=== PATIENT | male | born 1995 | race African-American/Black ===

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

== ENCOUNTER → 2017-01-02 | Outpatient (CLI) | payer OTHER ==
[2017-01-02 09:31] LABS: BASO % 1.1 % (0.0-1.0); EOS # 0.1 K/mm3 (0.0-0.50); EOS % 2.2 % (0.0-3.0); LYMPH # 2.3 K/mm3 (1.5-6.5); LYMPH % 50.1 % (24.0-44.0); MEAN CORPUSCULAR HEMOGLOBIN 30.8 pg (27.0-33.0); MEAN CORPUSCULAR HGB CONC 33.7 g/dl (32.0-36.5); MEAN CORPUSCULAR VOLUME 91.4 fl (80.0-96.0); MONO # 0.4 K/mm3 (0.0-0.8); MONO % 7.6 % (0.0-5.0); NEUTROPHILS # 1.6 K/mm3 (1.8-7.7); NEUTROPHILS % 35.5 % (36.0-66.0); RED CELL DISTRIBUTION WIDTH 12.9 % (11.5-14.5); WHITE BLOOD COUNT 4.6 K/mm3 (4.0-10.0)
[2017-01-02 09:53] LABS: ALBUMIN 3.8 GM/DL (3.2-5.2); ALBUMIN/GLOBULIN RATIO 1.06 (1.00-1.93); ALKALINE PHOSPHATASE 76 U/L (45-117); ALT/SGPT 31 U/L (12-78); ANION GAP 6 MEQ/L (8-16); AST/SGOT 21 U/L (15-37); BILIRUBIN,TOTAL 0.3 MG/DL (0.2-1.0); BLOOD UREA NITROGEN 17 MG/DL (7-18); CARBON DIOXIDE LEVEL 28 MEQ/L (21-32); CHLORIDE LEVEL 100 MEQ/L (98-107); CHOLESTEROL LEVEL 178 MG/DL (<200); CREATININE FOR GFR 0.98 MG/DL (0.70-1.30); GLUCOSE, FASTING 88 MG/DL (70-105); POTASSIUM SERUM 3.9 MEQ/L (3.5-5.1); SODIUM LEVEL 134 MEQ/L (136-145); TOTAL PROTEIN 7.4 GM/DL (6.4-8.2); TRIGLYCERIDES LEVEL 123 MG/DL (<150)
== END ==
LOC: M LAB 08:51
PROVIDERS: ATTEND Internal Medicine Cardiovascular Disease
DX: I48.0 Paroxysmal atrial fibrillation (principal); R01.1 Cardiac murmur, unspecified; R94.31 Abnormal electrocardiogram [ECG] [EKG]

== ENCOUNTER 2017-02-10 01:54 | Emergency (ER) | payer OTHER ==
[~2017-02-10] VITALS: Ht 172.7 cm; Wt 70.0 kg
[2017-02-10 02:23] VITALS: BP 121/78
[2017-02-10] MEDS ORDERED: ECOT81TA5 PO (02:27)
== END 2017-02-10 03:22 | disposition home or self-care (01) ==
LOC: M ED 01:54
DX: S60.440A External constriction of right index finger, initial encounter (principal); X58.XXXA Exposure to other specified factors, initial encounter; Y92.89 Other specified places as the place of occurrence of the external cause; Y93.89 Activity, other specified; Y99.9 Unspecified external cause status

== ENCOUNTER 2019-10-22 12:19 | Emergency (ER) | payer OTHER ==
[~2019-10-22] VITALS: Ht 170.2 cm; Wt 73.6 kg
[2019-10-22] MEDS ORDERED: ASPIRIN 81 MG CHEW TABLET PO ONE (12:45)
[2019-10-22 12:54] LABS: BASO % 0.6 % (0.0-1.0); EOS % 0.6 % (0.0-3.0); HEMATOCRIT 44.7 % (42.0-52.0); HEMOGLOBIN 15.2 g/dl (13.5-17.5); LYMPH # 2.4 10^3/uL (1.5-5.0); LYMPH % 44.4 % (24.0-44.0); MEAN CORPUSCULAR HEMOGLOBIN 31.5 pg (27.0-33.0); MEAN CORPUSCULAR VOLUME 92.5 fl (80.0-96.0); MONO # 0.5 10^3/uL (0.0-0.8); MONO % 9.4 % (0.0-5.0); NEUTROPHILS # 2.4 10^3/uL (1.5-8.5); NEUTROPHILS % 44.8 % (36.0-66.0); PLATELET COUNT, AUTOMATED 148 10^3/uL (150-450); RED BLOOD COUNT 4.83 10^6/uL (4.30-6.10); WHITE BLOOD COUNT 5.3 10^3/uL (4.0-10.0)
[2019-10-22] MEDS ORDERED: SERT-138 PO (13:00)
[2019-10-22 13:04] LABS: INR 1.12; PARTIAL THROMBOPLASTIN TIME 30.6 SECONDS (25.0-38.4); PROTHROMBIN TIME 14.1 SECONDS (11.8-14.0)
[2019-10-22 13:07] LABS: D-DIMER QUANT 868.45 ng/ml (<500)
[2019-10-22 13:27] LABS: ALT/SGPT 40 U/L (12-78); BILIRUBIN,DIRECT 0.1 MG/DL (0.0-0.2); BILIRUBIN,TOTAL 0.5 MG/DL (0.2-1.0); BLOOD UREA NITROGEN 9 MG/DL (7-18); CALCIUM LEVEL 9.3 MG/DL (8.5-10.1); CARBON DIOXIDE LEVEL 30 MEQ/L (21-32); CHLORIDE LEVEL 104 MEQ/L (98-107); CK-MB VALUE MASS 3.9 NG/ML (<3.6); CPK CREATINE PHOSPHOKINASE 2195 U/L (39-308); CREATININE FOR GFR 1.04 MG/DL (0.70-1.30); FREE T4 0.94 NG/DL (0.76-1.46); GLOMERULAR FILTRATION RATE > 60.0 (>60); GLUCOSE, FASTING 81 MG/DL (70-100); MB/CK RELATIVE INDEX 0.18 (< OR =4); POTASSIUM SERUM 4.6 MEQ/L (3.5-5.1); SODIUM LEVEL 138 MEQ/L (136-145); THYROID STIMULATING HORMONE 0.849 uIU/ML (0.358-3.740); TOTAL PROTEIN 7.6 GM/DL (6.4-8.2); TROPONIN I < 0.02 NG/ML (< 0.10)
[2019-10-22] MEDS ORDERED: NS 1,000 ML IV ONE ×2 (13:30→15:45)
--- NOTE | 2019-10-22 13:31 | REP ---
Chest x-ray: Two views. History: Chest pain . Comparison study: December 30, 2016 . Findings: The lungs are well inflated and free of infiltrate. The pleural angles are sharp. The heart size is normal. Pulmonary vasculature is not increased. No significant bony abnormality is seen. Impression: Negative chest x-ray. Electronically Signed by Geraldo Curtis MD 10/22/2019 01:23 P
[2019-10-22] MEDS ORDERED: ISOVUE-370 76% 100ML VIAL As Ordered ONE (13:49)
--- NOTE | 2019-10-22 14:44 | REP ---
CT ANGIOGRAM CHEST: TECHNIQUE: Axial contrast-enhanced images from the thoracic inlet to the upper abdomen using 100 mL Isovue-370 intravenous contrast material with multiplanar reformations. There is no CT evidence of pulmonary embolism. There is no thoracic aortic aneurysm or dissection. The heart is normal in size. There is no mediastinal, hilar or chest wall lymphadenopathy. Residual thymic tissue is seen in the anterior mediastinum. No infiltrate is seen in either lung. There is no pleural or pericardial effusion. Visualized upper abdominal structures and osseous structures appear unremarkable. IMPRESSION: No CT evidence of pulmonary embolism or aortic dissection. No acute infiltrate in either lung. Electronically Signed by Kip Henderson MD 10/22/2019 03:37 P
[2019-10-22] MEDS ORDERED: NS 1,000 ML IV SCH (17:27)
[2019-10-22 19:09] LABS: CK-MB VALUE MASS 3.1 NG/ML (<3.6); CPK CREATINE PHOSPHOKINASE 1683 U/L (39-308); MB/CK RELATIVE INDEX 0.18 (< OR =4); TROPONIN I < 0.02 NG/ML (< 0.10)
[2019-10-22 19:30] VITALS: BP 135/64
--- NOTE | 2019-10-23 08:36 | ECGEPIP ---
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
--- NOTE | 2019-10-23 08:41 | ECGEPIP ---
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
== END 2019-10-22 19:47 | disposition home or self-care (01) ==
LOC: M ED 12:19 → EDBD 12:19 → M ED 19:47
DX: R74.8 Abnormal levels of other serum enzymes (principal); I49.1 Atrial premature depolarization; I48.91 Unspecified atrial fibrillation; R01.1 Cardiac murmur, unspecified; F32.9 Major depressive disorder, single episode, unspecified; F17.218 Nicotine dependence, cigarettes, with other nicotine-induced disorders
CPT/HCPCS: 36415; 71046; 71275; 80048; 80076; 82550; 82553; 84439; 84443; 84484; 85025; 85379; 85610; 85730; 93005; 93041; 94760; 96360; 96361; 99285; Q9967

== ENCOUNTER 2020-03-24 14:25 | Emergency (ER) | payer OTHER ==
[~2020-03-24] VITALS: Ht 170.2 cm; Wt 82.3 kg
[~2020-03-24 14:25] MED LIST changes: +SERT-138 PO
[2020-03-24] MEDS ORDERED: METO37.5 PO (14:36)
[2020-03-24] MEDS ORDERED: XARE10TA PO (14:38)
--- NOTE | 2020-03-24 15:20 | REPVR ---
PROCEDURE INFORMATION: Exam: XR Chest, 2 Views Exam date and time: 03/24/2020 3:07 PM Age: 25 years old Clinical indication: Chest pain; Type not specified; Prior surgery; Surgery date: <1 month; Surgery type: Cardiac ablation done recently TECHNIQUE: Imaging protocol: XR of the chest Views: 2 views. COMPARISON: CT ANGIO CHEST 10/22/2019 1:58 PM FINDINGS: Lungs: Unremarkable. No consolidation. Pleural space: Unremarkable. No pleural effusion. No pneumothorax. Heart/Mediastinum: Unremarkable. No cardiomegaly. Bones/joints: Unremarkable. IMPRESSION: No acute findings. No significant interval change since the previous CT chest radiograph from 10/22/2019. Electronically signed by: Norberto Carr On 03/24/2020 15:19:40 PM
[2020-03-24 15:34] LABS: BASO # 0.1 10^3/uL (0.0-0.2); EOS # 0.1 10^3/uL (0.0-0.5); EOS % 1.2 % (0.0-3.0); HEMATOCRIT 46.5 % (42.0-52.0); HEMOGLOBIN 15.4 g/dl (13.5-17.5); LYMPH % 39.8 % (24.0-44.0); MEAN CORPUSCULAR HEMOGLOBIN 30.4 pg (27.0-33.0); MEAN CORPUSCULAR HGB CONC 33.1 g/dl (32.0-36.5); MEAN CORPUSCULAR VOLUME 91.9 fl (80.0-96.0); MONO # 0.6 10^3/uL (0.0-0.8); MONO % 11.3 % (0.0-5.0); NEUTROPHILS # 2.4 10^3/uL (1.5-8.5); NEUTROPHILS % 46.5 % (36.0-66.0); PLATELET COUNT, AUTOMATED 132 10^3/uL (150-450); RED BLOOD COUNT 5.06 10^6/uL (4.30-6.10); WHITE BLOOD COUNT 5.1 10^3/uL (4.0-10.0)
[2020-03-24 16:02] LABS: ALT/SGPT 45 U/L (12-78); BILIRUBIN,DIRECT < 0.1 MG/DL (0.0-0.2); BILIRUBIN,TOTAL 0.4 MG/DL (0.2-1.0); BLOOD UREA NITROGEN 11 MG/DL (7-18); CALCIUM LEVEL 9.6 MG/DL (8.5-10.1); CARBON DIOXIDE LEVEL 30 MEQ/L (21-32); CHLORIDE LEVEL 103 MEQ/L (98-107); CK-MB VALUE MASS 1.4 NG/ML (<3.6); CPK CREATINE PHOSPHOKINASE 337 U/L (39-308); CREATININE FOR GFR 0.98 MG/DL (0.70-1.30); FREE T4 1.05 NG/DL (0.76-1.46); GLOMERULAR FILTRATION RATE > 60.0 (>60); GLUCOSE, FASTING 95 MG/DL (70-100); LIPASE 117 U/L (73-393); MB/CK RELATIVE INDEX 0.42 (< OR =4); POTASSIUM SERUM 4.1 MEQ/L (3.5-5.1); SODIUM LEVEL 138 MEQ/L (136-145); THYROID STIMULATING HORMONE 0.923 uIU/ML (0.358-3.740); TOTAL PROTEIN 7.6 GM/DL (6.4-8.2); TROPONIN I 0.64 NG/ML (< 0.10)
[2020-03-24] MEDS ORDERED: ASPIRIN 81 MG CHEW TABLET PO ONE (16:30)
[2020-03-24] MEDS ORDERED: NITROGLYCERIN 0.4 MG SUBL TABLET SL PRN (16:30)
[2020-03-24 16:37] VITALS: BP 155/117
[2020-03-24 17:19] LABS: INR 1.01; PROTHROMBIN TIME 13.5 SECONDS (12.5-14.3)
[2020-03-24 17:20] LABS: PARTIAL THROMBOPLASTIN TIME 30.3 SECONDS (24.2-38.5)
[2020-03-24] MEDS ORDERED: ISOVUE-370 76% 100ML VIAL As Ordered ONE (17:48)
--- NOTE | 2020-03-24 20:28 | REPVR ---
PROCEDURE INFORMATION: Exam: CT Angiography Chest With Contrast Exam date and time: 03/24/2020 7:53 PM Age: 25 years old Clinical indication: Shortness of breath; Additional info: R/O pe TECHNIQUE: Imaging protocol: Computed tomographic angiography of the chest with intravenous contrast. 3D rendering (Not supervised by radiologist): MIP and/or 3D reconstructed images were created by the technologist. Radiation optimization: All CT scans at this facility use at least one of these dose optimization techniques: automated exposure control; mA and/or kV adjustment per patient size (includes targeted exams where dose is matched to clinical indication); or iterative reconstruction. Contrast material: ISOVUE 370; Contrast volume: 75 ml; Contrast route: INTRAVENOUS (IV); COMPARISON: CT ANGIO CHEST 10/22/2019 1:58 PM FINDINGS: Pulmonary arteries: No focal pulmonary artery filling defect to suggest acute pulmonary embolus. Aorta: No thoracic aortic aneurysm or dissection. Lungs: No suspicious lung mass or air space process. No central endobronchial lesion. Pleural space: No pleural effusion or pneumothorax. Heart: Heart is prominent in size . No evidence of acute pulmonary edema. Mediastinal space: Residual thymic tissue is present in the anterior mediastinum. Lymph nodes: No enlarged lymph nodes. Bones/joints: Bony structures show no acute fracture or destructive process. Soft tissues: No asymmetric abnormality of the extrathoracic soft tissues. IMPRESSION: 1. No evidence of acute pulmonary embolus. 2. No other acute or concerning focal intrathoracic abnormality. Electronically signed by: Humza rFederick On 03/24/2020 20:28:13 PM
--- NOTE | 2020-03-24 20:53 | ECGEPIP ---
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
--- NOTE | 2020-03-24 20:59 | ECGEPIP ---
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
[2020-03-24 21:10] LABS: CK-MB VALUE MASS < 1.0 NG/ML (<3.6); CPK CREATINE PHOSPHOKINASE 299 U/L (39-308); MB/CK RELATIVE INDEX 0.33 (< OR =4); TROPONIN I 0.61 NG/ML (< 0.10)
[2020-03-24 22:46] VITALS: BP 150/79
== END 2020-03-24 22:59 | disposition home or self-care (01) ==
LOC: M ED 14:25
DX: R07.9 Chest pain, unspecified (principal); I48.91 Unspecified atrial fibrillation; F17.200 Nicotine dependence, unspecified, uncomplicated
CPT/HCPCS: 71046; 71275; 80048; 80076; 82550; 82553; 83690; 84439; 84443; 84484; 85025; 85610; 85730; 93005; 93041; 94760; 99285; Q9967

== ENCOUNTER 2020-05-22 18:37 | Emergency (ER) | payer OTHER ==
[~2020-05-22] VITALS: Ht 170.2 cm; Wt 78.6 kg
[~2020-05-22 18:37] MED LIST changes: +METO37.5 PO; +XARE10TA PO
[2020-05-22] MEDS ORDERED: NS 1,000 ML IV ONE (20:00)
[2020-05-22 20:16] LABS: BASO % 0.7 % (0.0-1.0); EOS % 0.7 % (0.0-3.0); HEMATOCRIT 48.2 % (42.0-52.0); HEMOGLOBIN 15.7 g/dl (13.5-17.5); LYMPH # 2.5 10^3/uL (1.5-5.0); LYMPH % 54.7 % (24.0-44.0); MEAN CORPUSCULAR HEMOGLOBIN 29.5 pg (27.0-33.0); MEAN CORPUSCULAR HGB CONC 32.6 g/dl (32.0-36.5); MEAN CORPUSCULAR VOLUME 90.4 fl (80.0-96.0); MONO # 0.4 10^3/uL (0.0-0.8); MONO % 9.3 % (0.0-5.0); NEUTROPHILS # 1.6 10^3/uL (1.5-8.5); NEUTROPHILS % 34.4 % (36.0-66.0); PLATELET COUNT, AUTOMATED 168 10^3/uL (150-450); RED BLOOD COUNT 5.33 10^6/uL (4.30-6.10); WHITE BLOOD COUNT 4.5 10^3/uL (4.0-10.0)
[2020-05-22 20:25] LABS: INR 1.06
--- NOTE | 2020-05-22 20:42 | REPVR ---
PROCEDURE INFORMATION: Exam: XR Chest, 1 View Exam date and time: 05/22/2020 8:25 PM Age: 25 years old Clinical indication: Chest pain TECHNIQUE: Imaging protocol: XR of the chest Views: 1 view. COMPARISON: CR Chest, 2 view PA, Lat 03/24/2020 2:59 PM FINDINGS: Lungs: Unremarkable. No consolidation. Pleural space: Unremarkable. No pleural effusion. No pneumothorax. Heart/Mediastinum: Unremarkable. No cardiomegaly. Bones/joints: Unremarkable. IMPRESSION: No acute findings. Electronically signed by: Noah James On 05/22/2020 20:42:00 PM
[2020-05-22 20:43] LABS: BLOOD UREA NITROGEN 14 MG/DL (7-18); CALCIUM LEVEL 9.7 MG/DL (8.5-10.1); CARBON DIOXIDE LEVEL 30 MEQ/L (21-32); CHLORIDE LEVEL 104 MEQ/L (98-107); CK-MB VALUE MASS 1.3 NG/ML (<3.6); CPK CREATINE PHOSPHOKINASE 255 U/L (39-308); CREATININE FOR GFR 1.06 MG/DL (0.70-1.30); GLOMERULAR FILTRATION RATE > 60.0 (>60); GLUCOSE, FASTING 70 MG/DL (70-100); MB/CK RELATIVE INDEX 0.51 (< OR =4); POTASSIUM SERUM 4.4 MEQ/L (3.5-5.1); SODIUM LEVEL 138 MEQ/L (136-145); TROPONIN I < 0.02 NG/ML (< 0.10)
[2020-05-22 22:04] VITALS: BP 130/93
--- NOTE | 2020-05-23 10:03 | ECGEPIP ---
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
== END 2020-05-22 22:07 | disposition home or self-care (01) ==
LOC: M ED 18:37
DX: R11.10 Vomiting, unspecified (principal); R07.89 Other chest pain; I48.91 Unspecified atrial fibrillation; F17.200 Nicotine dependence, unspecified, uncomplicated; Z79.899 Other long term (current) drug therapy

== ENCOUNTER 2020-08-21 12:39 | Day surgery (SDC) | payer OTHER ==
[~2020-08-21] VITALS: Ht 170.2 cm; Wt 77.0 kg
[~2020-08-21 12:39] MED LIST changes: +LIDOCAINE 1% SDV 30ML VIAL As Ordered ONE; +LOPR1TAB6 PO; +LR 1,000 ML IV ONE; +MIDAZOLAM INJ 2MG/2ML VIAL (J2250 PER 1MG) As Ordered ONE; +OMEP10CASR PO; +ONDANSETRON 4MG/2ML VIAL As Ordered ONE; +XARE20TA PO; +ZOLO25TA PO; +ceFAZolin SOD 1 GM in D5W MINI-BAG PLUS 50 ML IV ONE; +fentaNYL 100 MCG/2 ML INJECTION (J3010) As Ordered ONE
[2020-08-21] MEDS ORDERED: LIDOCAINE 2% 100MG/5ML SDV (FOR ANES.) As Ordered ONE (13:27)
[2020-08-21] MEDS ORDERED: propofoL 200 MG/20 ML VIAL As Ordered ONE (13:27)
[2020-08-21 14:35] VITALS: BP 145/72
--- NOTE | 2020-08-24 09:03 | RO ---
OPERATIVE NOTE DATE OF OPERATION: 08/21/2020 PREOPERATIVE DIAGNOSIS: Paroxysmal atrial fibrillation monitoring. POSTOPERATIVE DIAGNOSIS: Paroxysmal atrial fibrillation monitoring. FINDINGS: Paroxysmal atrial fibrillation monitoring. PROCEDURE PERFORMED: Implantation of Medtronic subcutaneous cardiac rhythm monitor. SURGEON: Yony Gandhi MD CASING INSPECTOR: None. ANESTHESIA: Lidocaine 1% local/monitored anesthesia care. SPECIMEN: None. ESTIMATED BLOOD LOSS: Less than 3 mL. No blood products replaced. No drains. No complications. DESCRIPTION OF PROCEDURE: The patient was prepped and draped over the left anterior chest and sternum. Lidocaine 1% was used for local anesthetic. An incision was made with #15 blade approximately 1 cm length at the left 4th interspace about 1 inch lateral to the left parasternal border. The guide on the insertion tool was placed into the incision and was advanced parallel to the anterior chest wall in left lateral-caudal direction. The insertion tool was rotated 180 degrees. The plunger was placed into the insertion tool and used to advance the cardiac rhythm monitor into the subcutaneous tissue. The plunger was removed and then the insertion tool was removed leaving the cardiac rhythm monitor in situ. The skin was approximated temporarily using 4-0 Biosyn suture applied subcuticular to approximate the skin with the freed ends of the suture protruding 1 inch from the ends of the incision on both sides. Next, three layers of Dermabond was applied. The Biosyn suture was then pulled through the incision line and removed entirely. The initial R-wave amplitude measured 1.54 millivolts. The monitor implanted was Medtronic LINQ II, model LNQ22 with serial #[id number].
== END 2020-08-21 14:37 | disposition home or self-care (01) ==
LOC: M SDC 12:39
PROVIDERS: ATTEND Internal Medicine Cardiovascular Disease
DX: I48.0 Paroxysmal atrial fibrillation (principal); R01.1 Cardiac murmur, unspecified; Z91.018 Allergy to other foods; Z79.01 Long term (current) use of anticoagulants; F41.9 Anxiety disorder, unspecified; F32.9 Major depressive disorder, single episode, unspecified; F17.218 Nicotine dependence, cigarettes, with other nicotine-induced disorders; Z79.899 Other long term (current) drug therapy
CPT/HCPCS: 33285; C1764; J0690; J2250; J2405; J3010

== ENCOUNTER 2020-11-21 13:09 | Emergency (ER) | payer OTHER ==
[~2020-11-21] VITALS: Ht 170.2 cm; Wt 76.9 kg
[~2020-11-21 13:09] MED LIST changes: -LIDOCAINE 1% SDV 30ML VIAL As Ordered ONE; -LR 1,000 ML IV ONE; -MIDAZOLAM INJ 2MG/2ML VIAL (J2250 PER 1MG) As Ordered ONE; -ONDANSETRON 4MG/2ML VIAL As Ordered ONE; -ceFAZolin SOD 1 GM in D5W MINI-BAG PLUS 50 ML IV ONE; -fentaNYL 100 MCG/2 ML INJECTION (J3010) As Ordered ONE
[2020-11-21] MEDS ORDERED: METO1TAB32 PO (13:43)
[2020-11-21] MEDS ORDERED: NS 1,000 ML IV ONE (13:45)
[2020-11-21] MEDS ORDERED: ONDANSETRON 4MG/2ML VIAL IV ONE (13:45)
--- NOTE | 2020-11-21 13:56 | REP ---
INDICATION: CHEST PAIN. COMPARISON: Comparison chest x-ray May 22, 2020. TECHNIQUE: Portable upright AP chest radiograph. FINDINGS: The lungs are well inflated and free of infiltrate. Pleural angles are sharp. Heart size is normal. Pulmonary vasculature is not increased. There is a loop recorder projecting over the left mid lung field. EKG monitoring electrodes are seen. IMPRESSION: No active disease. <Electronically signed by Tristen Curtis > 11/21/20 [id number]
[2020-11-21 14:23] LABS: BASO % 0.7 % (0.0-1.0); EOS # 0.1 10^3/uL (0.0-0.5); EOS % 0.9 % (0.0-3.0); HEMATOCRIT 44.1 % (42.0-52.0); HEMOGLOBIN 14.7 g/dl (13.5-17.5); LYMPH # 1.8 10^3/uL (1.5-5.0); LYMPH % 31.8 % (24.0-44.0); MEAN CORPUSCULAR HEMOGLOBIN 30.3 pg (27.0-33.0); MEAN CORPUSCULAR HGB CONC 33.3 g/dl (32.0-36.5); MEAN CORPUSCULAR VOLUME 90.9 fl (80.0-96.0); MONO # 0.5 10^3/uL (0.0-0.8); MONO % 8.6 % (2.0-8.0); NEUTROPHILS # 3.2 10^3/uL (1.5-8.5); NEUTROPHILS % 57.8 % (36.0-66.0); PLATELET COUNT, AUTOMATED 159 10^3/uL (150-450); RED BLOOD COUNT 4.85 10^6/uL (4.30-6.10); WHITE BLOOD COUNT 5.6 10^3/uL (4.0-10.0)
[2020-11-21 14:33] LABS: BLOOD UREA NITROGEN 12 MG/DL (7-18); CALCIUM LEVEL 9.1 MG/DL (8.5-10.1); CARBON DIOXIDE LEVEL 26 MEQ/L (21-32); CHLORIDE LEVEL 107 MEQ/L (98-107); CK-MB VALUE MASS 2.2 NG/ML (<3.6); CPK CREATINE PHOSPHOKINASE 452 U/L (39-308); CREATININE FOR GFR 0.93 MG/DL (0.70-1.30); GLOMERULAR FILTRATION RATE > 60.0 (>60); GLUCOSE, FASTING 76 MG/DL (70-100); MAGNESIUM LEVEL 2.1 MG/DL (1.8-2.4); MB/CK RELATIVE INDEX 0.49 (< OR =4); POTASSIUM SERUM 4.1 MEQ/L (3.5-5.1); SODIUM LEVEL 140 MEQ/L (136-145); TROPONIN I 1.48 NG/ML (< 0.10)
[2020-11-21 15:54] LABS: AMPHETAMINES LEVEL URINE NEGATIVE (NEGATIVE); BARBITURATES URINE NEGATIVE (NEGATIVE); BENZODIAZEPINES URINE NEGATIVE (NEGATIVE); CANNABINOIDS URINE NEGATIVE (NEGATIVE); COCAINE METABOLITE URINE NEGATIVE (NEGATIVE); METHADONE URINE NEGATIVE (NEGATIVE); OPIATES URINE NEGATIVE (NEGATIVE); PHENCYCLIDINE URINE NEGATIVE (NEGATIVE)
[2020-11-21 16:49] LABS: CK-MB VALUE MASS 1.9 NG/ML (<3.6); MB/CK RELATIVE INDEX 0.46 (< OR =4); TROPONIN I 1.52 NG/ML (< 0.10)
[2020-11-21 17:15] VITALS: BP 142/70
--- NOTE | 2020-11-23 16:35 | ECGEPIP ---
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
--- NOTE | 2020-11-23 16:36 | ECGEPIP ---
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
== END 2020-11-21 18:03 | disposition home or self-care (01) ==
LOC: M ED 13:09
DX: I48.0 Paroxysmal atrial fibrillation (principal); Z79.01 Long term (current) use of anticoagulants; Z91.018 Allergy to other foods; Z87.891 Personal history of nicotine dependence
CPT/HCPCS: 71045; 80048; 80307; 82550; 82553; 83735; 84484; 85025; 87505; 93005; 93041; 94760; 96361; 96374; 99285; J2405

== ENCOUNTER 2020-11-30 11:34 | Emergency (ER) | payer OTHER ==
[~2020-11-30] VITALS: Ht 170.2 cm; Wt 77.1 kg
[~2020-11-30 11:34] MED LIST changes: +METO1TAB32 PO
--- NOTE | 2020-11-30 12:41 | REP ---
INDICATION: CHEST PAIN. COMPARISON: Comparison chest x-ray November 21, 2020. TECHNIQUE: Portable upright AP chest radiograph. FINDINGS: The lungs are well inflated and free of infiltrate. Pleural angles are sharp. Heart size is normal. Pulmonary vasculature is not increased. Monitoring electrodes are visible. A loop recorder is seen in the left precordium. IMPRESSION: No active disease. <Electronically signed by Tristen Curtis > 11/30/20 [id number]
[2020-11-30 13:06] LABS: BASO % 0.8 % (0.0-1.0); EOS # 0.1 10^3/uL (0.0-0.5); EOS % 1.1 % (0.0-3.0); HEMATOCRIT 47.7 % (42.0-52.0); LYMPH # 2.3 10^3/uL (1.5-5.0); LYMPH % 43.7 % (24.0-44.0); MEAN CORPUSCULAR HEMOGLOBIN 30.3 pg (27.0-33.0); MEAN CORPUSCULAR HGB CONC 33.5 g/dl (32.0-36.5); MEAN CORPUSCULAR VOLUME 90.3 fl (80.0-96.0); MONO # 0.6 10^3/uL (0.0-0.8); MONO % 11.5 % (2.0-8.0); NEUTROPHILS # 2.3 10^3/uL (1.5-8.5); NEUTROPHILS % 42.7 % (36.0-66.0); PLATELET COUNT, AUTOMATED 153 10^3/uL (150-450); RED BLOOD COUNT 5.28 10^6/uL (4.30-6.10); WHITE BLOOD COUNT 5.3 10^3/uL (4.0-10.0)
[2020-11-30 13:35] LABS: ALT/SGPT 32 U/L (12-78); BILIRUBIN,DIRECT 0.1 MG/DL (0.0-0.2); BILIRUBIN,TOTAL 0.7 MG/DL (0.2-1.0); BLOOD UREA NITROGEN 11 MG/DL (7-18); CALCIUM LEVEL 9.5 MG/DL (8.5-10.1); CARBON DIOXIDE LEVEL 30 MEQ/L (21-32); CHLORIDE LEVEL 104 MEQ/L (98-107); CK-MB VALUE MASS < 1.0 NG/ML (<3.6); CPK CREATINE PHOSPHOKINASE 253 U/L (39-308); CREATININE FOR GFR 1.06 MG/DL (0.70-1.30); FREE T4 0.86 NG/DL (0.76-1.46); GLOMERULAR FILTRATION RATE > 60.0 (>60); GLUCOSE, FASTING 77 MG/DL (70-100); LIPASE 104 U/L (73-393); POTASSIUM SERUM 4.1 MEQ/L (3.5-5.1); SODIUM LEVEL 137 MEQ/L (136-145); THYROID STIMULATING HORMONE 0.877 uIU/ML (0.358-3.740); TOTAL PROTEIN 7.6 GM/DL (6.4-8.2); TROPONIN I < 0.02 NG/ML (< 0.10)
[2020-11-30] MEDS ORDERED: ONDANSETRON 4MG/2ML VIAL IV ONE (13:45)
[2020-11-30 13:55] LABS: MAGNESIUM LEVEL 2.4 MG/DL (1.8-2.4)
--- NOTE | 2020-11-30 14:04 | REP ---
INDICATION: abdominal pain/constipation; r/o obstruction. COMPARISON: None. FINDINGS: KUB shows the intestinal gas pattern to be nonspecific. The organ silhouettes insofar as delineated are unremarkable. There is no evidence of free intraperitoneal air. The stool pattern is unremarkable IMPRESSION: Nonspecific. <Electronically signed by Dewey Pardo > 11/30/20 [id number]
[2020-11-30 14:08] LABS: INR 1.68; PROTHROMBIN TIME 20.2 SECONDS (12.5-14.3)
--- NOTE | 2020-11-30 15:45 | ECGEPIP ---
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
[2020-11-30] MEDS ORDERED: ONDA4TAB6 PO (16:18)
[2020-11-30 16:48] VITALS: BP 127/81
== END 2020-11-30 16:53 | disposition home or self-care (01) ==
LOC: M ED 11:34
DX: R07.89 Other chest pain (principal); R11.0 Nausea; I48.91 Unspecified atrial fibrillation; K21.9 Gastro-esophageal reflux disease without esophagitis; Z79.899 Other long term (current) drug therapy; Z79.01 Long term (current) use of anticoagulants; Z91.018 Allergy to other foods; F17.210 Nicotine dependence, cigarettes, uncomplicated
CPT/HCPCS: 71045; 74018; 80048; 80076; 82550; 82553; 83690; 83735; 84439; 84443; 84484; 85025; 85610; 93005; 93041; 94760; 96374; 99285; J2405

== ENCOUNTER 2021-01-01 12:06 | Emergency (ER) | payer OTHER ==
[~2021-01-01] VITALS: Ht 170.2 cm; Wt 73.6 kg
[~2021-01-01 12:06] MED LIST changes: +ONDA4TAB6 PO
[2021-01-01] MEDS ORDERED: methocarbamoL 750 MG TAB PO ONE (15:15)
[2021-01-01] MEDS ORDERED: LIDOCAINE 5% (LIDODERM) PATCH TD ONE (15:15)
[2021-01-01] MEDS ORDERED: ACETAMINOPHEN 500 MG TAB PO ONE (15:15)
--- NOTE | 2021-01-01 16:09 | REPVR ---
PROCEDURE INFORMATION: Exam: CT Thoracic Spine Without Contrast Exam date and time: 01/01/2021 3:34 PM Age: 25 years old Clinical indication: Other: Severe back pain, new injury, fell off [id number] TECHNIQUE: Imaging protocol: Computed tomography images of the thoracic spine without contrast. Radiation optimization: All CT scans at this facility use at least one of these dose optimization techniques: automated exposure control; mA and/or kV adjustment per patient size (includes targeted exams where dose is matched to clinical indication); or iterative reconstruction. COMPARISON: CT ANGIO CHEST 03/24/2020 7:49 PM FINDINGS: Vertebrae: No acute bony injury or malalignment in the thoracic spine. Discs/Spinal canal/Neural foramina: Marginal osteophytes. Soft tissues: Unremarkable appearance of the paraspinous soft tissues. IMPRESSION: No acute bony injury or malalignment in the thoracic spine. Electronically signed by: Scooter Tilley On 01/01/2021 16:09:02 PM
--- NOTE | 2021-01-01 16:10 | REPVR ---
PROCEDURE INFORMATION: Exam: CT Lumbar Spine Without Contrast Exam date and time: 01/01/2021 3:34 PM Age: 25 years old Clinical indication: Other: Severe back pain, new injury, fell off [id number] TECHNIQUE: Imaging protocol: Computed tomography images of the lumbar spine without contrast. Radiation optimization: All CT scans at this facility use at least one of these dose optimization techniques: automated exposure control; mA and/or kV adjustment per patient size (includes targeted exams where dose is matched to clinical indication); or iterative reconstruction. COMPARISON: NC Abdomen,Flat Plate KUB 11/30/2020 1:44 PM FINDINGS: Vertebrae: No acute bony injury or malalignment in the lumbar spine. Discs/Spinal canal/Neural foramina: No acute findings. Soft tissues: Unremarkable appearance of the paraspinous soft tissues. IMPRESSION: No acute bony injury or malalignment in the lumbar spine. Electronically signed by: Scooter Tilley On 01/01/2021 16:09:56 PM
[2021-01-01 16:36] VITALS: BP 112/67
[2021-01-01] MEDS ORDERED: **NOTE PATIENT COMMENT** MISC XX SCH (21:00)
== END 2021-01-01 16:54 | disposition home or self-care (01) ==
LOC: M ED 12:06
DX: G89.29 Other chronic pain (principal); M54.5 Low back pain; I48.91 Unspecified atrial fibrillation; F10.10 Alcohol abuse, uncomplicated; Z91.018 Allergy to other foods; Z79.899 Other long term (current) drug therapy; Z79.01 Long term (current) use of anticoagulants

== ENCOUNTER 2021-01-27 10:12 | Emergency (ER) | payer OTHER ==
[~2021-01-27] VITALS: Ht 170.2 cm; Wt 78.2 kg
[2021-01-27 10:12] VITALS: BP 134/92
[2021-01-27] MEDS ORDERED: CYMB60CA3 PO (10:20)
[2021-01-27] MEDS ORDERED: GABA-282 PO (10:22)
[2021-01-27] MEDS ORDERED: CYMB1CAP4 PO (10:22)
--- NOTE | 2021-01-27 15:18 | REPVR ---
PROCEDURE INFORMATION: Exam: MR Lumbar Spine Without Contrast Exam date and time: 01/27/2021 2:11 PM Age: 26 years old Clinical indication: Low back pain; trauma. Additional info: Ddd, on blood thinners. Urinary incontinence TECHNIQUE: Imaging protocol: Multiplanar magnetic resonance images of the lumbar spine without intravenous contrast. COMPARISON: CT Spine, lumbar w/o contrast 01/01/2021 3:32 PM FINDINGS: Vertebrae: The lumbar vertebral bodies are normal in height,signal intensity and alignment.No acute fracture or dislocation is seen. Spinal epidural space: There is no evidence of epidural masses or hemorrhage. Spinal cord: The conus medullaris is normal. The cauda equina nerve roots demonstrate no crowding or displacement. L1-L2: There is no significant degenerative disc herniation.The spinal canal and neural foramina are patent and without significant stenosis. L2-L3: There is no significant degenerative disc herniation.The spinal canal and neural foramina are patent and without significant stenosis. L3-L4: There is no significant degenerative disc herniation.The spinal canal and neural foramina are patent and without significant stenosis. L4-L5: Mildly reduced in height and T2 signal indicating degeneration.There is a mild diffuse posterior bulge causing mild effacement of the thecal sac.The facet joints demonstrate mild degenerative hypertrophy and sclerosis.There is no evidence of spinal canal narrowing.There is mild bilateral foraminal stenosis. L5-S1: Mildly reduced in height and T2 signal indicating degeneration.There is a mild diffuse posterior bulge causing mild effacement of the thecal sac. Moderate right foraminal protrusion. Mild facet arthropathy.There is no evidence of spinal canal narrowing.Severe right foraminal stenosis with compression on the right L5 nerve root. Soft tissues: The prevertebral soft tissues appear normal. IMPRESSION: MRI of the lumbar spine reveals degenerative spondylitic changes and degenerative disc disease at L4-L5 and L5-S1 levels as described above. No acute fracture or dislocation is seen. Electronically signed by: Glen Boles On 01/27/2021 15:18:21 PM
--- NOTE | 2021-01-27 20:30 | ECGEPIP ---
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 Order Number: [id number] Reading MD: Liza Hood Measurements Intervals [place] Rate: 80 P: 62 [place]: 184 QRS: 55 QRSD: 92 T: -13 QT: 346 QTc: 399 Interpretive Statements Normal sinus rhythm ST elevation, consider early repolarization, pericarditis, or injury T wave abnormality, consider inferior ischemia decreased rate 11/30/20 Electronically Signed on 01-27-2021 20:29:52 EDT by Liza Hood
== END 2021-01-27 16:51 | disposition home or self-care (01) ==
LOC: M ED 10:12
DX: M51.37 Other intervertebral disc degeneration, lumbosacral region (principal); M54.32 Sciatica, left side; I48.91 Unspecified atrial fibrillation; Z91.018 Allergy to other foods; Z79.899 Other long term (current) drug therapy; Z79.01 Long term (current) use of anticoagulants

== ENCOUNTER 2021-02-17 16:19 | Emergency (ER) | payer OTHER ==
[~2021-02-17 16:19] MED LIST changes: +CYMB1CAP4 PO; +CYMB60CA3 PO; +GABA-282 PO
[2021-02-17 16:20] VITALS: BP 137/81
== END 2021-02-17 18:00 | disposition left against medical advice (07) ==
LOC: M ED 16:19
DX: Z53.21 Procedure and treatment not carried out due to patient leaving prior to being seen by health care provider (principal)

== ENCOUNTER 2021-04-19 08:35 | Emergency (ER) | payer OTHER ==
[~2021-04-19] VITALS: Ht 170.2 cm; Wt 73.6 kg
[~2021-04-19 08:35] MED LIST changes: -CYMB60CA3 PO; +CYMB60CA4 PO
--- OUTSIDE RECORDS SUMMARY | 2021-04-19 08:42 | CCD | Continuity of Care Document ---
Author Author Pacer/Icd Gallito Longo Organization Unknown Address [address] [place] [address], [facility] [place] [address] Phone Unavailable Care Team Providers Care Circus Artist Name Role Phone Kel Adams MD AUTM Marvel Haile AUTM [phone] Ward Durán MD AUTM [phone] Nicole Simpson MD AUTM [phone] Problems Active Problems Provider Date Paroxysmal atrial fibrillation Sudarshan Pinedo MD Onset: Heart murmur Sudarshan Pinedo MD Onset: 12/15/2016 Electrocardiogram abnormal Sudarshan Pinedo MD Onset: 2016 Disturbance in sleep behavior Sudarshan Pinedo MD Onset: 11/2016 Precordial pain MARYAN Agarwal Onset: 06/15/2020 Syncope and collapse MARYAN Agarwal Onset: Dyspnea MARYAN Agarwal Onset: 08/03/2020 Social History Type Date Description Comments Sex Unknown ETOH Use Does not consume alcohol Tobacco Use Start: Unknown Patient is a current smoker, smo kes every day 5-6 cigarettes daily since 2015 Smoking Status Reviewed: 03/25/21 Patient is a current smoker, smokes every day 5-6 cigarettes daily since 2015 Exercise Type/Frequency Walks twice a week Exercise Type/Frequency Does housework twice a w [place] Exercise Type/Frequency Does gardening 4 times a week Exercise Type/Frequency Does yardwork twice a we ek and snow shoveling as needed Exercise Limitations Chest Discomfort "pressure" after exercising during the day Exercise Limitations Back Pain Allergies and adverse reactions Description No Known Drug Allergies Medications Active Medications SIG Qnty Indications Ordering Provide r Date Gabapentin 300mg Capsules 1 by mouth in morning, 1 by mouth in afternoon and 2 by mouth at bedtime daily MDD=4 Kel Adams MD 04/14/2021 Mirtazapine 7.5mg Tablets 2 by mouth once daily at bedtime Kel Adams MD 08/[address] Part 1 by mouth twice a day Nicole Simpson MD 03/24/2021 History Medications Omeprazole 20mg Capsules DR 1 by mouth once daily as needed Unknown 03/24/2021 - 04/14/2021 Gabapentin 600mg Tablets 1 by mouth in morning and afternoon then 2 by mouth in evening Unknown 03/24/2021 - 04/14/2021 Metoprolol Succinate ER 200mg Tablets ER 24HR 1 by mouth every day 90tabs I48.0 Yony Gandhi MD 01/21/2021 - 04/14/2021 Immunizations Description No Information Available Vital Signs Date Vital Result Comment 03/25/2021 3:08pm Weight 179.00 lb in full unifo rm 8 lbs Home Weight 176lb Height 68 inches 5'8" BMI (Body Mass Index) 27.2 kg/m2 Heart Rate 111 /min 108, regular BP Systolic Sitting 136 mmHg Ra, large cuff BP Diastolic Sitting 86 mmHg Ra, large cuff 08/11/2020 12:55pm Weight 175.00 lb in full unifo rm 8 lbs Home Weight 167lb Height 68 inches 5'8" BMI (Body Mass Index) 26.6 kg/m2 BP Systolic Sitting 124 mmHg Ra, large cuff BP Diastolic Sitting 72 mmHg Ra, large cuff Results Test Acquired Date Facility Test Result H/L Range Note CBC without Differential 11/30/2020 [facility] - White Blood Count 5.3 4.3-10.9 Red Blood Count 5.28 4.70-6.20 Platelets 153 130-400 Hemoglobin 16.0 13.0-17.0 Hematocrit 47.7 39.0-50.0 CMP 11/30/2020 [facility] ([facility])- - Albumin Serum/Plasma 4.0 Alt - SGPT 32 Calcium Ser/Plasma Mass/Vol 9.5 Carbon Dioxide Ser/Plasm 30 Chloride Serum/Plasma 104 Alkaline Phosphatase 74 Potassium 4.1 Protein Total 7.6 Sodium 137 Ast - Sgot 19 BUN - Urea Nitrogen 11 Glucose 77 70-100 Creatinine For GFR 1.06 BMP 11/21/2020 [facility] ([facility])- - Calcium Ser/Plasma Mass/Vol 9.1 Sodium 140 Carbon Dioxide Ser/Plasm 26 Chloride Serum/Plasma 107 Potassium 4.1 Glucose 76 70-100 Blood Urea Nitrogen 12 5-21 Creatinine 0.93 0.6-1.5 G F R >60.0 Laboratory test finding 11/21/2020 [facility] ([facility])- - Troponin 1.48 Magnesium Level 2.1 Procedures Date Code Description Status 04/15/2021 88784 Implantable Loop Recorder System , Review And Report Completed 03/25/2021 45044 Office/Outpatient Established Mo d MDM 30-39 Min Completed 03/25/2021 17208 ECG 12-Lead Completed 03/12/2021 52565 Implantable Loop Recorder System , Review And Report Completed 02/08/2021 66603 Implantable Loop Recorder System , Review And Report Completed 01/06/2021 73964 Implantable Loop Recorder System , Review And Report Completed 12/03/2020 52839 Implantable Loop Recorder System , Review And Report Completed 10/27/2020 72583 Implantable Loop Recorder System , Review And Report Completed Medical Devices Description No Information Available Encounters Type Date Location Provider Dx Diagnosis Office Visit 03/25/2021 3:00p Main Office MARYAN Agarwal I48 .0 Paroxysmal atrial fibrillation Z95.818 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 R07.2 Precordial pain R06.02 Shortness of breath R55 Syncope and collapse R94.31 Abnormal electrocardiogram [ ECG] [EKG] Assessments Date Code Description Provider 04/15/2021 Z95.818 Presence of other cardiac implan ts and grafts [facility] 03/25/2021 I48.0 Paroxysmal atrial fibrillation C AMRYAN Payton 03/25/2021 Z95.818 Presence of other cardiac implan ts and grafts MARYAN Agarwal 03/25/2021 R07.2 Precordial pain MARYAN Leroy Cha, se 03/25/2021 R06.02 Shortness of breath MARYAN Agarwal 03/25/2021 R55 Syncope and collapse MARYAN Harris 03/25/2021 R94.31 Abnormal electrocardiogram [ECG] [EKG] MARYAN Agarwal 03/12/2021 Z95.818 Presence of other cardiac implan ts and grafts [facility] 02/08/2021 Z95.818 Presence of other cardiac implan ts and grafts [facility] 01/06/2021 Z95.818 Presence of other cardiac implan ts and grafts [facility] 12/03/2020 Z95.818 Presence of other cardiac implan ts and grafts [facility] 10/27/2020 Z95.818 Presence of other cardiac implan ts and grafts [facility] Plan of Treatment Future Appointment(s):* 05/17/2021 7:00 am - [facility] at Main Office * 04/28/2021 8:00 am - MARYAN Agarwal at Main Office 03/25/2021 - MARYAN Agarwal* I48.0 Paroxysmal atrial fibrillation* Recommendations:* Advised patient to be extremely compliant with his medications He is agreeable to call us tomorrow to see which additional medication he was given Patient is agreeable to come back in a few weeks for a repeat EKG * Z95.818 Presence of other cardiac implants and grafts* Recommendations:* Will continue with ILR readings every month * R07.2 Precordial pain* Recommendations:* Patient agreeable to contact us if the pain reoccurs * R06.02 Shortness of breath* Recommendations:* Patient agreeable to seek medical attention with new onset or worsening of his shortness of breath * R55 Syncope and collapse* Recommendations:* Advised patient to seek medical attention with the onset of any additional episodes of syncope * R94.31 Abnormal electrocardiogram [ECG] [EKG]* Recommendations:* No further evaluation is needed at this time. * All * Follow up:* 3-4 week CV w/ EKG Functional Status Functional Condition Comment Date Status Independent with all ADL's Activ e Mental Status Description No Information Available Referrals Description No Information Available
--- OUTSIDE RECORDS SUMMARY | 2021-04-19 08:42 | CCD | Continuity of Care Document ---
Author Author Gallito TAYLOR Organization Unknown Address [address] [place] [address], [facility] [place] [address] Phone [phone] Care Team Providers Care Land Commissioner Name Role Phone Kel Adams MD AUTM Marvel Haile AUTM [phone] Ward Durán MD AUTM [phone] Nicole Simpson MD AUTM [phone] Problems Active Problems Provider Date Paroxysmal atrial [...] Exercise Type/Frequency Does housework twice a w [place] Exercise Type/Frequency Does gardening 4 times a week Exercise Type/Frequency Does yardwork twice a we [place] and snow shoveling as needed Exercise Limitations Chest Discomfort "pressure" after exercising during the day Exercise Limitations Back Pain Allergies and adverse reactions Description No Known Drug Allergies Medications Active Medications SIG Qnty Indications Ordering Provide r Date Cymbalta 30mg Caps DR Part 1 by mouth twice a day Nicole Simpson MD 03/24/[address] 1 by mouth once daily as needed Unknown 03/24/2021 Gabapentin 600mg Tablets 1 by mouth in morning and afternoon then 2 by mouth in evening Unknown 03/24/2021 Metoprolol Succinate ER 200mg Tablets ER 24HR 1 by mouth every day 90tabs I48.0 Yony Gandhi MD 01/21/2021 Xarelto 20mg Tablets 1 by mouth every day Ward Durán MD 06/14/2020 Immunizations Description No Information Available Vital Signs [...] Level 2.1 Procedures Date Code Description Status 03/25/2021 99255 Office/Outpatient Established Mo d MDM 30-39 Min Completed 03/25/2021 10739 ECG 12-Lead Completed 03/12/2021 09256 Implantable Loop Recorder System , Review And Report Completed 02/08/2021 30216 Implantable Loop Recorder System , Review And Report Completed 01/06/2021 65171 Implantable Loop Recorder System , Review And Report Completed 12/03/2020 41925 Implantable Loop Recorder System , Review And Report Completed 10/27/2020 63077 Implantable Loop Recorder System , Review And [...] ECG] [EKG] Assessments Date Code Description Provider 03/25/2021 I48.0 Paroxysmal atrial fibrillation C MARYAN Payton 03/25/2021 Z95.818 Presence of other cardiac [...] [facility] Plan of Treatment Future Appointment(s):* 04/28/2021 8:00 am - MARYAN Agarwal at Main Office * 04/15/2021 7:00 am - [facility] at Main Office 03/25/2021 - MARYAN Agarwal* [...]
--- OUTSIDE RECORDS SUMMARY | 2021-04-19 08:42 | CCD | Continuity of Care Document ---
Author Author Gallito TAYLOR Organization Unknown Address [address] [place] [address], [facility] [place] [address] Phone [phone] Care Team Providers Care Ocean Transportation Intermediary Name Role Phone Kel Adams MD AUTM Marvel Haile AUTM [phone] Ward Durán MD AUTM [phone] Nicole Simpson MD AUTM [phone] Problems Active Problems Provider Date Paroxysmal atrial [...] Exercise Type/Frequency Does housework twice a w [place] Exercise Type/Frequency Does gardening 4 times a [...] 2.1 Procedures Date Code Description Status 03/25/2021 62577 Office/Outpatient Established Mo d MDM 30-39 Min Completed 03/25/2021 86684 ECG 12-Lead Completed 03/12/2021 21192 Implantable Loop Recorder System , Review And Report Completed 02/08/2021 95001 Implantable Loop Recorder System , Review And Report Completed 01/06/2021 76386 Implantable Loop Recorder System , Review And Report Completed 12/03/2020 36738 Implantable Loop Recorder System , Review And Report Completed 10/27/2020 56104 Implantable Loop Recorder System , Review And Report Completed 09/24/2020 24819 Implantable Loop Recorder System , Review And [...] cardiac implan ts and grafts [facility] 09/24/2020 Z95.818 Presence of other cardiac implan ts [...]
--- OUTSIDE RECORDS SUMMARY | 2021-04-19 08:42 | CCD | Continuity of Care Document ---
Author Author Gallito TAYLOR Organization Unknown Address [address] [place] [address], [facility] [place] [address] Phone [phone] Care Team Providers Care Assessment Nurse Name Role Phone Kel Adams MD AUTM Marvel Haile AUTM [phone] Ward Durán MD AUTM [phone] Nicole Simpson MD AUTM [phone] Problems Active Problems Provider Date Paroxysmal atrial [...] Exercise Type/Frequency Does housework twice a w [place] Exercise Type/Frequency Does gardening 4 times a [...] 2.1 Procedures Date Code Description Status 03/25/2021 37482 Office/Outpatient Established Mo d MDM 30-39 Min Completed 03/25/2021 02561 ECG 12-Lead Completed 03/12/2021 86738 Implantable Loop Recorder System , Review And Report Completed 02/08/2021 29972 Implantable Loop Recorder System , Review And Report Completed 01/06/2021 00618 Implantable Loop Recorder System , Review And Report Completed 12/03/2020 70947 Implantable Loop Recorder System , Review And Report Completed 10/27/2020 87555 Implantable Loop Recorder System , Review And Report Completed 09/24/2020 66827 Implantable Loop Recorder System , Review And [...]
--- OUTSIDE RECORDS SUMMARY | 2021-04-19 08:42 | CCD | Continuity of Care Document ---
Author Author Gallito TAYLOR Organization Unknown Address [address] [place] [address], [facility] [place] [address] Phone [phone] Care Team Providers Care Distributor Of Directories Name Role Phone Kel Adams MD AUTM Marvel Haile AUTM [phone] Ward Durán MD AUTM [phone] Nicole Simpson MD AUTM [phone] Problems Active Problems Provider Date Paroxysmal atrial fibrillation Sudarshan Pinedo MD Onset: Heart murmur Sudarshan Pinedo MD Onset: 12/15/2016 Electrocardiogram abnormal Sudarshan Pinedo MD Onset: 2016 Disturbance in sleep behavior Sudarshan Pinedo MD Onset: 11/2016 Precordial pain MARYAN Agarwal Onset: 06/15/2020 Syncope and collapse MARYAN Agarwal Onset: Dyspnea MARYNA Agarwal Onset: 08/03/2020 Social History Type Date [...] Exercise Type/Frequency Does housework twice a w [place] Exercise Type/Frequency Does gardening 4 times a [...] 2.1 Procedures Date Code Description Status 03/25/2021 19450 Office/Outpatient Established Mo d MDM 30-39 Min Completed 03/25/2021 29402 ECG 12-Lead Completed 03/12/2021 32714 Implantable Loop Recorder System , Review And Report Completed 02/08/2021 57433 Implantable Loop Recorder System , Review And Report Completed 01/06/2021 33645 Implantable Loop Recorder System , Review And Report Completed 12/03/2020 50179 Implantable Loop Recorder System , Review And Report Completed 10/27/2020 96536 Implantable Loop Recorder System , Review And Report Completed 09/24/2020 28974 Implantable Loop Recorder System , Review And [...]
--- OUTSIDE RECORDS SUMMARY | 2021-04-19 08:42 | CCD | Continuity of Care Document ---
Author Author Gallito TAYLOR Organization Unknown Address [address] [place] [address], [facility] [place] [address] Phone [phone] Care Team Providers Care Manager Provider Relations Name Role Phone Kel Adams MD AUTM Marvel Haile AUTM [phone] Ward Durán MD AUTM [phone] Nicole Simpson MD AUTM [phone] Problems Active Problems Provider Date Paroxysmal atrial [...] Exercise Type/Frequency Does housework twice a w [place] Exercise Type/Frequency Does gardening 4 times a [...] 2.1 Procedures Date Code Description Status 03/25/2021 99126 Office/Outpatient Established Mo d MDM 30-39 Min Completed 03/25/2021 05045 ECG 12-Lead Completed 03/12/2021 58766 Implantable Loop Recorder System , Review And Report Completed 02/08/2021 41081 Implantable Loop Recorder System , Review And Report Completed 01/06/2021 51560 Implantable Loop Recorder System , Review And Report Completed 12/03/2020 56742 Implantable Loop Recorder System , Review And Report Completed 10/27/2020 71193 Implantable Loop Recorder System , Review And Report Completed 09/24/2020 68937 Implantable Loop Recorder System , Review And [...]
--- OUTSIDE RECORDS SUMMARY | 2021-04-19 08:42 | CCD | Continuity of Care Document ---
Author Author Gallito TAYLOR Organization Unknown Address [address] [place] [address], [facility] [place] [address] Phone [phone] Care Team Providers Care Hull Sorter Name Role Phone Kel Adams MD AUTM Marvel Haile AUTM [phone] Ward Durán MD AUTM [phone] Nicole Simpson MD AUTM [phone] Problems Active Problems Provider Date Paroxysmal atrial [...] Exercise Type/Frequency Does housework twice a w [place] Exercise Type/Frequency Does gardening 4 times a [...] 2.1 Procedures Date Code Description Status 03/25/2021 06276 Office/Outpatient Established Mo d MDM 30-39 Min Completed 03/25/2021 68168 ECG 12-Lead Completed 03/12/2021 25973 Implantable Loop Recorder System , Review And Report Completed 02/08/2021 65703 Implantable Loop Recorder System , Review And Report Completed 01/06/2021 15929 Implantable Loop Recorder System , Review And Report Completed 12/03/2020 65032 Implantable Loop Recorder System , Review And Report Completed 10/27/2020 06873 Implantable Loop Recorder System , Review And Report Completed 09/24/2020 90684 Implantable Loop Recorder System , Review And [...]
--- OUTSIDE RECORDS SUMMARY | 2021-04-19 08:42 | CCD | Continuity of Care Document ---
Author Author Gallito TAYLOR Organization Unknown Address [address] [place] [address], [place] [address] Phone [phone] Care Team Providers Care International Tax Manager Name Role Phone Kel Adams MD AUTM Marvel Haile AUTM [phone] Ward Durán MD AUTM [phone] Nicole Simpson MD AUTM [phone] Problems Active Problems Provider Date Paroxysmal atrial [...] Exercise Type/Frequency Does housework twice a w [place] Exercise Type/Frequency Does gardening 4 times a [...] 2.1 Procedures Date Code Description Status 03/25/2021 31523 Office/Outpatient Established Mo d MDM 30-39 Min Completed 03/25/2021 45434 ECG 12-Lead Completed 03/12/2021 48522 Implantable Loop Recorder System , Review And Report Completed 02/08/2021 87117 Implantable Loop Recorder System , Review And Report Completed 01/06/2021 55398 Implantable Loop Recorder System , Review And Report Completed 12/03/2020 93419 Implantable Loop Recorder System , Review And Report Completed 10/27/2020 98191 Implantable Loop Recorder System , Review And Report Completed 09/24/2020 02677 Implantable Loop Recorder System , Review And [...]
--- OUTSIDE RECORDS SUMMARY | 2021-04-19 08:43 | CCD | Continuity of Care Document ---
Author Organization Unknown Address Unknown Phone Unavailable Care Team Providers Care Lining Strap Closer Name Role Phone Kel Adams MD AUTM Marvel Haile AUTM [phone] Ward Durán MD AUTM [phone] Nicole Simpson MD AUTM [phone] Problems Active Problems Provider Date Paroxysmal atrial [...] Exercise Type/Frequency Does housework twice a w [place] Exercise Type/Frequency Does gardening 4 times a [...] 2.1 Procedures Date Code Description Status 03/25/2021 75039 Office/Outpatient Established Mo d MDM 30-39 Min Completed 03/25/2021 83311 ECG 12-Lead Completed 03/12/2021 92922 Implantable Loop Recorder System , Review And Report Completed 02/08/2021 25742 Implantable Loop Recorder System , Review And Report Completed 01/06/2021 14771 Implantable Loop Recorder System , Review And Report Completed 12/03/2020 30549 Implantable Loop Recorder System , Review And Report Completed 10/27/2020 81718 Implantable Loop Recorder System , Review And Report Completed 09/24/2020 62379 Implantable Loop Recorder System , Review And [...]
--- OUTSIDE RECORDS SUMMARY | 2021-04-19 08:43 | CCD | Continuity of Care Document ---
Author Organization Unknown Address Unknown Phone Unavailable Care Team Providers Care Pest Control Worker Helper Name Role Phone Kel Adams MD AUTM [phone] Marvel Haile AUTM [phone] Ward Durán MD AUTM [phone] Nicole Simpson MD AUTM [phone] Problems Active Problems Provider Date Paroxysmal atrial [...] Exercise Type/Frequency Does housework twice a w [place] Exercise Type/Frequency Does gardening 4 times a [...] 2.1 Procedures Date Code Description Status 03/25/2021 41617 Office/Outpatient Established Mo d MDM 30-39 Min Completed 03/25/2021 71676 ECG 12-Lead Completed 03/12/2021 24487 Implantable Loop Recorder System , Review And Report Completed 02/08/2021 10493 Implantable Loop Recorder System , Review And Report Completed 01/06/2021 33231 Implantable Loop Recorder System , Review And Report Completed 12/03/2020 83285 Implantable Loop Recorder System , Review And Report Completed 10/27/2020 95091 Implantable Loop Recorder System , Review And Report Completed 09/24/2020 56879 Implantable Loop Recorder System , Review And [...]
--- OUTSIDE RECORDS SUMMARY | 2021-04-19 08:43 | CCD | Continuity of Care Document ---
Author Author Gallito BUENROSTRO M.D. Organization Unknown Address [address] [place] [address] Phone [phone] Care Team Providers Care Ict Support And Test Engineers Name Role Phone Jose Gomez [phone] Problems Active Problems Provider Date Chronic low back pain Carolyn Buenrostro M.D. Onset: 02/01/2021 Lumbosacral radiculopathy Carolyn Buenrostro M.D. Onset: 021 Social History Type Date Description Comments Sex Unknown Tobacco Use Start: Unknown Patient is a current smoker, smo kes every day Allergies, Adverse Reactions, Alerts Description No Known Drug Allergies Medications Active Medications SIG Qnty Indications Ordering Provide r Date Tylenol 8 Hour 650mg Tablets ER Carolyn Buenrostro M.D. 02/01/2021 Immunizations Description No Information Available Vital Signs Date Vital Result Comment 02/03/2021 9:11am BP Systolic 120 mmHg BP Diastolic 80 mmHg Heart Rate 72 /min Height 67 inches 5'7" Weight 168.00 lb BMI (Body Mass Index) 26.3 kg/m2 [place] Body Weight 148 lb Results Description No Information Available Procedures Description No Information Available Medical Devices Description No Information Available Encounters Description No Information Available Assessments Description No Information Available Plan of Treatment No Information Available Functional Status Description No Information Available Mental Status Description No Information Available Referrals Description No Information Available
--- OUTSIDE RECORDS SUMMARY | 2021-04-19 08:43 | CCD | Continuity of Care Document ---
Author Author Pacer/Icd Gallito Longo Organization Unknown Address [address] [place] [address], [facility] [place] [address] Phone Unavailable Care Team Providers Care Tube Molder Fiberglass Name Role Phone Kel Adams MD AUTM [phone] Marvel Haile AUTM [phone] Ward Durán MD AUTM [phone] Problems Active Problems Provider Date Paroxysmal atrial fibrillation Sudarshan Pinedo MD Onset: Heart murmur Sudarshan Pinedo MD Onset: 12/15/2016 Electrocardiogram abnormal Sudarshan Pinedo MD Onset: 2016 Disturbance in sleep behavior Sudarshan Pindeo MD Onset: 11/2016 Precordial pain MARYAN Agarwal Onset: 06/15/2020 Syncope and collapse MARYAN Agarwal Onset: Dyspnea MARYAN Agarwal Onset: 08/03/2020 Social History Type Date Description Comments Sex Unknown ETOH Use Consumes Alcohol 1-2 drinks rare ly Tobacco Use Start: Unknown Patient is a current smoker, smo kes every day 3 cigarettes daily since 2015 Smoking Status Reviewed: 08/03/20 Patient is a current smoker, smokes every day 3 cigarettes daily since 2015 Exercise Type/Frequency Does aerobics 3 times a week Exercise Type/Frequency Hiking occasion ally Exercise Type/Frequency Walks twice a week Exercise Type/Frequency Does housework twice a w [place] Exercise Type/Frequency Does gardening 4 times a week Exercise Type/Frequency Does yardwork twice a we ek and snow shoveling as needed Exercise Limitations Chest Discomfort "pressure" after exercising during the day Allergies, Adverse Reactions, Alerts Description No Known Drug Allergies Medications Active Medications SIG Qnty Indications Ordering Provide r Date Metoprolol Succinate ER 200mg Tablets ER 24HR 1 by mouth every day 90tabs I48.0 Yony Gandhi MD 01/21/[address] 1 by mouth daily 90caps Sudarshan Pinedo MD 08/03/2020 Xarelto 20mg Tablets 1 by mouth every day Ward Durán MD 06/14/2020 Sertraline HCL 100mg Tablets 1 by mouth every day Marvel Haile PA 11/13/2019 Tylenol 325mg Tablets 1-2 by mouth as directed, as needed Unknown 12/14/2016 History Medications Metoprolol Succinate ER 100mg Tablets ER 24HR 1.5 by mouth every day 135tabs I48.0 Yony Gandhi MD 08/28/2020 - 01/21/2021 Immunizations Description No Information Available Vital Signs Date Vital Result Comment 08/11/2020 12:55pm Weight 175.00 lb in full unifo rm 8 lbs Home Weight 167lb Height 68 inches 5'8" BMI (Body Mass Index) 26.6 kg/m2 BP Systolic Sitting 124 mmHg Ra, large cuff BP Diastolic Sitting 72 mmHg Ra, large cuff 08/03/2020 10:27am Weight 173.00 lb in full unifo rm 6 lbs Home Weight 167lb Height 68 inches 5'8" BMI (Body Mass Index) 26.3 kg/m2 BP Systolic Sitting 122 mmHg Ra, large cuff BP Diastolic Sitting 72 mmHg Ra, large cuff Results Description No Information Available Procedures Date Code Description Status 02/08/2021 12113 Implantable Loop Recorder System , Review And Report Completed 01/06/2021 99081 Implantable Loop Recorder System , Review And Report Completed 12/03/2020 17073 Implantable Loop Recorder System , Review And Report Completed 10/27/2020 55105 Implantable Loop Recorder System , Review And Report Completed 09/24/2020 81524 Implantable Loop Recorder System , Review And Report Completed Medical Devices Description No Information Available Encounters Description No Information Available Assessments Date Code Description Provider 02/08/2021 Z95.818 Presence of other cardiac implan [...] [facility] Plan of Treatment Future Appointment(s):* 03/11/2021 7:00 am - [facility] at Main Office * 03/25/2021 3:00 pm - MARYAN Agarwal at Main Office 08/11/2020 - MARYAN Agarwal* I48.0 Paroxysmal atrial fibrillation* Recommendations:* Please schedule patient for loop recorder implantation Risks, benefits, and procedure discussed with patient, consents were signed Continue metoprolol and Xarelto at the current dosages * R07.2 Precordial pain* Recommendations:* As above Patient agreeable to contact us if the pain reoccurs * R06.02 Shortness of breath* Recommendations:* As above Patient agreeable to seek medical attention with new onset or worsening of his shortness of breath * All * Follow up:* Please schedule patient for a loop recorder implantation with Dr. Gandhi 1 week wound check Follow-up as scheduled Functional Status Functional Condition Comment Date Status Independent with all ADL's Activ e Mental Status Description No Information Available Referrals Description No Information Available
--- OUTSIDE RECORDS SUMMARY | 2021-04-19 08:43 | CCD | Continuity of Care Document ---
Author Author Gallito ESTRELLA MD Organization Unknown Address [address] [place] [address] Phone [phone] Care Team Providers Care Wire Tester Name Role Phone Meet Roberson MD AUTM [phone] Problems Description No Information Available Social History Type Date Description Comments Sex Unknown ETOH Use Denies alcohol use Tobacco Use Start: Unknown Patient is a current smoker, smo kes every day Allergies, Adverse Reactions, Alerts Active Allergies Criticality Reaction | Severity Comments Date [place] Unable to assess criticality 01/18/2021 [place] Unable to assess criticality 01/18/2021 Medications Active Medications SIG Qnty Indications Ordering Provide r Date Xarelto 10mg Tablets 1 tab by mouth daily for 35 days for post op hip surgery. Unknown Metroprolol Succinate Unknown Percocet 2.5-325mg Tablets take 1 tablet every 8 hours as needed for pain Unknown Prednisone 2.5mg Tablets Unknown Cyclobenzaprine HCL 5mg Tablets Unknown Immunizations Description No Information Available Vital Signs Date Vital Result Comment 01/18/2021 9:37am Body Temperature 97.7 F Height 66 inches 5'6" Weight 169.50 lb BMI (Body Mass Index) 27.4 kg/m2 Results Description No Information Available Procedures Date Code Description Status 01/18/2021 43741 Office/Outpatient New Moderate M DM 45-59 Minutes Completed 01/18/2021 18876 X-Ray Spine Lumbosacral Bending Only 2 Or 3 Views Completed Medical Devices Description No Information Available Encounters Type Date Location Provider Dx Diagnosis Office Visit 01/18/2021 9:15a Hammondmp Estrella MD M54.5 Low back pain Assessments Date Code Description Provider 01/18/2021 M54.5 Low back pain Scooter Estrella MD Plan of Treatment 01/18/2021 - Scooter Estrella MD* M54.5 Low back pain* Follow up:* 8 weeks for low back recheck with any PA Functional Status Description No Information Available Mental Status Description No Information Available Referrals Refer to Dr Reason for Referral Status Appt Date Scooter Estrella MD M54.5 LOW BACK PAIN Created [address] [place] [address] [phone] Scooter Estrella MD M54.5 LOW BACK PAIN Created [address] [place] [address] [phone]
--- OUTSIDE RECORDS SUMMARY | 2021-04-19 08:43 | CCD | Continuity of Care Document ---
Author Author Pacer/Icd Gallito Longo Organization Unknown Address [address] [place] [address], [facility] [place] [address] Phone Unavailable Care Team Providers Care Hospice Spiritual Care Coordinator Name Role Phone Kel Adams MD AUTM [phone] Marvel Haile AUTM [phone] Ward Durán MD AUTM [phone] Problems Active Problems Provider Date Paroxysmal atrial [...] Exercise Type/Frequency Does housework twice a w [place] Exercise Type/Frequency Does gardening 4 times a week Exercise Type/Frequency Does yardwork twice a we ek and snow shoveling as needed Exercise Limitations Chest Discomfort "pressure" after exercising during the day Allergies and adverse reactions Description No Known [...] mouth as directed, as needed Unknown 12/14/2016 Immunizations Description No Information Available Vital Signs [...] Information Available Procedures Date Code Description Status 03/12/2021 18829 Implantable Loop Recorder System , Review And Report Completed 02/08/2021 93225 Implantable Loop Recorder System , Review And Report Completed 01/06/2021 32462 Implantable Loop Recorder System , Review And Report Completed 12/03/2020 96097 Implantable Loop Recorder System , Review And Report Completed 10/27/2020 27080 Implantable Loop Recorder System , Review And Report Completed 09/24/2020 78861 Implantable Loop Recorder System , Review And Report Completed Medical Devices Description No Information Available Encounters Description No Information Available Assessments Date Code Description Provider 03/12/2021 Z95.818 Presence of other cardiac implan [...] [facility] Clinic Plan of Treatment Future Appointment(s):* 04/15/2021 7:00 am - [facility] Clinic at [...]
--- OUTSIDE RECORDS SUMMARY | 2021-04-19 08:43 | CCD | Continuity of Care Document ---
Author Author Gallito BUENROSTRO M.D. Organization Unknown Address [address] [place] [address] Phone [phone] Care Team Providers Care Prize Fighter Name Role Phone Jose Gomez [phone] Problems Active Problems Provider Date Chronic low [...] lb BMI (Body Mass Index) 26.3 kg/m2 [place] Body Weight 148 lb Results Description No Information Available Procedures Date Code Description Status 02/03/2021 28286 Nerve Conduction 13+ Studies Com pleted 02/03/2021 98224 Needle Electromyography Complete , Five Or More Muscles Studied Completed 02/03/2021 59889 Needle Electromyography Complete , Five Or More Muscles Studied Completed Medical Devices Description No Information Available Encounters Description No Information Available Assessments Date Code Description Provider 02/03/2021 M54.5 Low back pain Glenn Le 02/03/2021 M54.16 Radiculopathy, lumbar region Dagmar Buenrosrto M.D. 02/03/2021 R20.2 Paresthesia of skin Carolyn Buenrostro M.D. Plan of Treatment No Information Available Functional Status Description No Information Available Mental Status Description No Information Available Referrals Description No Information Available
--- OUTSIDE RECORDS SUMMARY | 2021-04-19 08:44 | CCD ---
Author Author [facility] Organization [facility] Address Unknown Phone Unavailable Care Team Providers Care Mat Packer Name Role Phone Deny, L Olimpia PA Unavailable Unavailable Deny, L Olimpia PA Unavailable Unavailable Deny, L Olimpia PA Unavailable Unavailable Deny, L Olimpia PA Unavailable Unavailable Deny, L Olimpia PA Unavailable Unavailable Deny, L Olimpia PA Unavailable Unavailable Deny, L Olimpia PA Unavailable Unavailable Deny, L Olimpia PA Unavailable Unavailable Deny, L Olimpia PA Unavailable Unavailable Deny, L Olimpia PA Unavailable Unavailable Deny, L Olimpia PA Unavailable Unavailable Deny, L Olimpia PA Unavailable Unavailable Deny, L Olimpia PA Unavailable Unavailable Deny, L Olimpia PA Unavailable Unavailable Edny, L Olimpia PA Unavailable Unavailable Deny, L Olimpia PA Unavailable Unavailable Deny, L Olimpia PA Unavailable Unavailable Deny, L Olimpia PA Unavailable Unavailable Deny, L Olimpia PA Unavailable Unavailable Deny, L Olimpia PA Unavailable Unavailable Deny, L Olimpia PA Unavailable Unavailable Deny, L Olimpia PA Unavailable Unavailable Deny, L Olimpia PA Unavailable Unavailable UNKNOWN, [facility] Unavailable Unavailable Rodney Bermudez MD Unavailable Unavailable Rodney Bermudez MD Unavailable Unavailable Rodney Bermudez MD Unavailable Unavailable Rodney Bermudez MD Unavailable Unavailable Rodney Bermudez MD Unavailable Unavailable Rodney Bermudez MD Unavailable Unavailable Estrella, L Scooter ULLOA Unavailable Unavailable Estrella, L Scooter ULLOA Unavailable Unavailable Estrella, L Scooter ULLOA Unavailable Unavailable Estrella, L Scooter ULLOA Unavailable Unavailable Estrella, L Scootre ULLOA Unavailable Unavailable Estrella, Ginny Helms MD Unavailable Unavailable Estrella, L Scooter ULLOA Unavailable Unavailable Estrella, L Scooter ULLOA Unavailable Unavailable Estrella, L Scooter ULLOA Unavailable Unavailable Estrella, L Scooter ULLOA Unavailable Unavailable Estrella, L Scooter ULLOA Unavailable Unavailable Estrella, L Scooter ULLOA Unavailable Unavailable Estrella, L Scooter ULLOA Unavailable Unavailable Estrella, L Scooter ULLOA Unavailable Unavailable Estrella, L Scooter ULLOA Unavailable Unavailable Estrella, L Scooter ULLOA Unavailable Unavailable Estrella, L Scooter ULLOA Unavailable Unavailable Estrella, L Scooter ULLOA Unavailable Unavailable Estrella, L Scooter ULLOA Unavailable Unavailable Estrella, L Scooter ULLOA Unavailable Unavailable Estrella, L Scooter ULLOA Unavailable Unavailable Estrella, L Scooter ULLOA Unavailable Unavailable Estrella, L Scooter ULLOA Unavailable Unavailable Estrella, L Scooter ULLOA Unavailable Unavailable Estrella, L Scooter ULLOA Unavailable Unavailable Estrella, L Scooter ULLOA Unavailable Unavailable Estrella, L Scooter ULLOA Unavailable Unavailable Estrella, L Scooter ULLOA Unavailable Unavailable Estrella, L Scooter ULLOA Unavailable Unavailable Estrella, L Scooter ULLOA Unavailable Unavailable Estrella, L Scooter ULLOA Unavailable Unavailable Estrella, L Scooter ULLOA Unavailable Unavailable Estrella, L Scooter ULLOA Unavailable Unavailable Estrella, L Scooter ULLOA Unavailable Unavailable Estrella, L Scooter ULLOA Unavailable Unavailable Estrella, L Scooter ULLOA Unavailable Unavailable Estrella, L Scooter ULLOA Unavailable Unavailable Estrella, L Scooter ULLOA Unavailable Unavailable Estrella, L Scooter ULLOA Unavailable Unavailable Estrella, L Scooter ULLOA Unavailable Unavailable Estrella, L Scooter ULLOA Unavailable Unavailable Estrella, L Scooter ULLOA Unavailable Unavailable Estrella, L Scooter ULLOA Unavailable Unavailable Estrella, L Scooter ULLOA Unavailable Unavailable Estrella, L Scooter ULLOA Unavailable Unavailable Estrella, L Scooter ULLOA Unavailable Unavailable Estrella, L Scooter ULLOA Unavailable Unavailable Estrella, L Scooter ULLOA Unavailable Unavailable Estrella, L Scooter ULLOA Unavailable Unavailable Estrella, L Scooter ULLOA Unavailable Unavailable BRANDON, L OFELIA PA Unavailable Unavailable BRANDON, L OFELIA PA Unavailable Unavailable BRANDON, L OFELIA PA Unavailable Unavailable BRANDON, L OFELIA PA Unavailable Unavailable BRANDON, L OFELIA PA Unavailable Unavailable BRANDON, L OFELIA PA Unavailable Unavailable BRANDON, L OFELIA PA Unavailable Unavailable BRANDON, L OFELIA PA Unavailable Unavailable BRANDON, L OFELIA PA Unavailable Unavailable BRANDON, L OFELIA PA Unavailable Unavailable BRANDON, L OFELIA PA Unavailable Unavailable BRANDON, L OFELIA PA Unavailable Unavailable BRANDON, L OFELIA PA Unavailable Unavailable BRANDON, L OFELIA PA Unavailable Unavailable BRANDON, L OFELIA PA Unavailable Unavailable BRANDON, L OFELIA PA Unavailable Unavailable Sweet, Gambee Joy PA-C Unavailable Unavailable Sweet, Gambee Joy PA-C Unavailable Unavailable Sweet, Gambee Joy PA-C Unavailable Unavailable Sweet, Gambee Joy PA-C Unavailable Unavailable Sweet, Gambee Joy PA-C Unavailable Unavailable Sweet, Gambee Joy PA-C Unavailable Unavailable Sweet, Gambee Joy PA-C Unavailable Unavailable Sweet, Gambee Joy PA-C Unavailable Unavailable Sweet, Gambee Joy PA-C Unavailable Unavailable Sweet, Gambee Joy PA-C Unavailable Unavailable Sweet, Gambee Joy PA-C Unavailable Unavailable Sweet, Gambee Joy PA-C Unavailable Unavailable Sweet, Gambee Joy PA-C Unavailable Unavailable Sweet, Gambee Joy PA-C Unavailable Unavailable Sweet, Gambee Joy PA-C Unavailable Unavailable Sweet, Gambee Joy PA-C Unavailable Unavailable Sweet, Gambee Joy PA-C Unavailable Unavailable Sweet, Gambee Joy PA-C Unavailable Unavailable Sweet, Gambee Joy PA-C Unavailable Unavailable Sweet, Gambee Joy PA-C Unavailable Unavailable Sweet, Gambee Joy PA-C Unavailable Unavailable Sweet, Gambee Joy PA-C Unavailable Unavailable Sweet, Gambee Joy PA-C Unavailable Unavailable Sweet, Gambee Joy PA-C Unavailable Unavailable Sweet, Gambee Joy PA-C Unavailable Unavailable Sweet, Gambee Joy PA-C Unavailable Unavailable Sweet, Gambee Joy PA-C Unavailable Unavailable Sweet, Gambee Joy PA-C Unavailable Unavailable Sweet, Gambee Joy PA-C Unavailable Unavailable Sweet, Gambee Joy PA-C Unavailable Unavailable Sweet, Gambee Joy PA-C Unavailable Unavailable Sweet, Gambee Joy PA-C Unavailable Unavailable Sweet, Gambee Joy PA-C Unavailable Unavailable Sweet, Gambee Joy PA-C Unavailable Unavailable Sweet, Gambee Joy PA-C Unavailable Unavailable Sweet, Gambee Joy PA-C Unavailable Unavailable Sweet, Gambee Joy PA-C Unavailable Unavailable Sweet, Gambee Joy PA-C Unavailable Unavailable Gael Peck PA-C Unavailable Unavailable Gael Peck PA-C Unavailable Unavailable ZABOROWSKI, J SUBHA BILLING MACHINE OPERATOR Unavailable Unavailable ZABOROWSKI, J SUBHA BILLING MACHINE OPERATOR Unavailable Unavailable ZABOROWSKI, J SUBHA BILLING MACHINE OPERATOR Unavailable Unavailable ZABOROWSKI, J SUBHA BILLING MACHINE OPERATOR Unavailable Unavailable ZABOROWSKI, J SUBHA BILLING MACHINE OPERATOR Unavailable Unavailable ZABOROWSKI, J SUBHA BILLING MACHINE OPERATOR Unavailable Unavailable ZABOROWSKI, J SUBHA BILLING MACHINE OPERATOR Unavailable Unavailable ZABOROWSKI, J SUBHA BILLING MACHINE OPERATOR Unavailable Unavailable ZABOROWSKI, J SUBHA BILLING MACHINE OPERATOR Unavailable Unavailable ZABOROWSKI, J SUBHA BILLING MACHINE OPERATOR Unavailable Unavailable ZABOROWSKI, J SUBHA BILLING MACHINE OPERATOR Unavailable Unavailable ZABOROWSKI, J SUBHA BILLING MACHINE OPERATOR Unavailable Unavailable ZABOROWSKI, J SUBHA BILLING MACHINE OPERATOR Unavailable Unavailable ZABOROWSKI, J SUBHA BILLING MACHINE OPERATOR Unavailable Unavailable ZABOROWSKI, J SUBHA BILLING MACHINE OPERATOR Unavailable Unavailable ZABOROWSKI, J SUBHA BILLING MACHINE OPERATOR Unavailable Unavailable ZABOROWSKI, J SUBHA BILLING MACHINE OPERATOR Unavailable Unavailable ZABOROWSKI, J SUBHA BILLING MACHINE OPERATOR Unavailable Unavailable ZABOROWSKI, J SUBHA BILLING MACHINE OPERATOR Unavailable Unavailable ZABOROWSKI, J SUBHA BILLING MACHINE OPERATOR Unavailable Unavailable ZABOROWSKI, J SUBHA BILLING MACHINE OPERATOR Unavailable Unavailable ZABOROWSKI, J SUBHA BILLING MACHINE OPERATOR Unavailable Unavailable ZABOROWSKI, J SUBHA BILLING MACHINE OPERATOR Unavailable Unavailable ZABOROWSKI, J SUBHA BILLING MACHINE OPERATOR Unavailable Unavailable ZABOROWSKI, J SUBHA BILLING MACHINE OPERATOR Unavailable Unavailable ZABOROWSKI, J SUBHA BILLING MACHINE OPERATOR Unavailable Unavailable ZABOROWSKI, J SUBHA BILLING MACHINE OPERATOR Unavailable Unavailable ZABOROWSKI, J SUBHA BILLING MACHINE OPERATOR Unavailable Unavailable ZABOROWSKI, J SUBHA BILLING MACHINE OPERATOR Unavailable Unavailable ZABOROWSKI, J SUBHA BILLING MACHINE OPERATOR Unavailable Unavailable ZABOROWSKI, J SUBHA BILLING MACHINE OPERATOR Unavailable Unavailable ZABOROWSKI, J SUBHA BILLING MACHINE OPERATOR Unavailable Unavailable ZABOROWSKI, J SUBHA BILLING MACHINE OPERATOR Unavailable Unavailable ZABOROWSKI, J SUBHA BILLING MACHINE OPERATOR Unavailable Unavailable ZABOROWSKI, J SUBHA BILLING MACHINE OPERATOR Unavailable Unavailable ZABOROWSKI, J SUBHA BILLING MACHINE OPERATOR Unavailable Unavailable ZABOROWSKI, J SUBHA BILLING MACHINE OPERATOR Unavailable Unavailable ZABOROWSKI, J SUBHA BILLING MACHINE OPERATOR Unavailable Unavailable ZABOROWSKI, J SUBHA BILLING MACHINE OPERATOR Unavailable Unavailable ZABOROWSKI, J SUBHA BILLING MACHINE OPERATOR Unavailable Unavailable ZABOROWSKI, J SUBHA BILLING MACHINE OPERATOR Unavailable Unavailable ZABOROWSKI, J SUBHA BILLING MACHINE OPERATOR Unavailable Unavailable ZABOROWSKI, J SUBHA BILLING MACHINE OPERATOR Unavailable Unavailable ZABOROWSKI, J SUBHA BILLING MACHINE OPERATOR Unavailable Unavailable ZABOROWSKI, J SUBHA BILLING MACHINE OPERATOR Unavailable Unavailable ZABOROWSKI, J SUBHA BILLING MACHINE OPERATOR Unavailable Unavailable ZABOROWSKI, J SUBHA BILLING MACHINE OPERATOR Unavailable Unavailable ZABOROWSKI, J SUBHA BILLING MACHINE OPERATOR Unavailable Unavailable Al Mudamgha, A Ali Unavailable Unavailable Al Mudamgha, A Ward ULLOA Unavailable Unavailable Al Mudamgha, A Ward ULLOA Unavailable Unavailable Al Mudamgha, A Ward ULLOA Unavailable Unavailable Al Mudamgha, A Ward MD Unavailable Unavailable Al Mudamgha, A Ali MD Unavailable Unavailable Al Mudamgha, A Ali MD Unavailable Unavailable Al Mudamgha, A Ali Unavailable Unavailable Al Mudamgha, A Ali MD Unavailable Unavailable Al Mudamgha, A Ali MD Unavailable Unavailable Al Mudamgha, A Ali MD Unavailable Unavailable Al Mudamgha, A Ali MD Unavailable Unavailable Al Mudamgha, A Ward ULLOA Unavailable Unavailable Al Mudamgha, A Ward ULLOA Unavailable Unavailable Al Mudamgha, A Ward ULLOA Unavailable Unavailable Al Mudamgha, A Ali MD Unavailable Unavailable Al Mudamgha, A Ward MD Unavailable Unavailable Al Mudamgha, A Ward ULLOA Unavailable Unavailable Al Mudamgha, A Ward ULLOA Unavailable Unavailable Al Mudamgha, A Ward ULLOA Unavailable Unavailable Al Mudamgha, A Ali Unavailable Unavailable Al Mudamgha, A Ali MD Unavailable Unavailable Al Mudamgha, A Ali MD Unavailable Unavailable Al Mudamgha, A Ward ULLOA Unavailable Unavailable Al Mudamgha, A Ward ULLOA Unavailable Unavailable Al Mudamgha, A Ward ULLOA Unavailable Unavailable Al Mudamgha, A Ward ULLOA Unavailable Unavailable Al Mudamgha, A Ward ULLOA Unavailable Unavailable Al Mudamgha, A Ward ULLOA Unavailable Unavailable Al Mudamgha, A Ward ULLOA Unavailable Unavailable Al Mudamgha, A Ward ULLOA Unavailable Unavailable Al Mudamgha, A Ward ULLOA Unavailable Unavailable Al Mudamgha, A Ali Unavailable Unavailable Al Mudamgha, A Ali MD Unavailable Unavailable Al Mudamgha, A Ali MD Unavailable Unavailable Al Mudamgha, A Ward ULLOA Unavailable Unavailable Al Mudamgha, A Ward ULLOA Unavailable Unavailable Al Mudamgha, A Ward ULLOA Unavailable Unavailable Al Mudamgha, A Ali Unavailable Unavailable Al Mudamgha, A Ali MD Unavailable Unavailable Al Mudamgha, A Ali MD Unavailable Unavailable Al Mudamgha, A Ali Unavailable Unavailable Al Mudamgha, A Ali Unavailable Unavailable Al Mudamgha, A Ali MD Unavailable Unavailable Al Mudamgha, A Ali MD Unavailable Unavailable Al Mudamgha, A Ali MD Unavailable Unavailable Al Mudamgha, A Ali MD Unavailable Unavailable Al Mudamgha, A Ali MD Unavailable Unavailable Al Mudamgha, A Ali MD Unavailable Unavailable Al Mudamgha, A Ali MD Unavailable Unavailable Al Mudamgha, A Ali MD Unavailable Unavailable Al Mudamgha, A Ali MD Unavailable Unavailable Al Mudamgha, A Ali MD Unavailable Unavailable Al Mudamgha, A Ali MD Unavailable Unavailable Al Mudamgha, A Ali MD Unavailable Unavailable Al Mudamgha, A Ali MD Unavailable Unavailable Al Mudamgha, A Ali MD Unavailable Unavailable Al Mudamgha, A Ali MD Unavailable Unavailable Al Mudamgha, A Ali MD Unavailable Unavailable Al Mudamgha, A Ali MD Unavailable Unavailable Al Mudamgha, A Ali MD Unavailable Unavailable Al Mudamgha, A Ali MD Unavailable Unavailable Al Mudamgha, A Ali MD Unavailable Unavailable Al Mudamgha, A Ali MD Unavailable Unavailable Al Mudamgha, A Ali MD Unavailable Unavailable Al Mudamgha, A Ali MD Unavailable Unavailable Al Mudamgha, A Ali MD Unavailable Unavailable Al Mudamgha, A Ali MD Unavailable Unavailable Al Mudamgha, A Ali MD Unavailable Unavailable Al Mudamgha, A Ward ULLOA Unavailable Unavailable Al Mudamgha, A Ward ULLOA Unavailable Unavailable Al Mudamgha, A Ali MD Unavailable Unavailable Al Mudamgha, A Ali MD Unavailable Unavailable Al Mudamgha, A Ali MD Unavailable Unavailable Al Mudamgha, A Ali MD Unavailable Unavailable Al Mudamgha, A Ali MD Unavailable Unavailable Al Mudamgha, A Ali MD Unavailable Unavailable Al Mudamgha, A Ali MD Unavailable Unavailable Al Mudamgha, A Ali MD Unavailable Unavailable Al Mudamgha, A Ali MD Unavailable Unavailable Al Mudamgha, A Ali MD Unavailable Unavailable Al Mudamgha, A Ward ULLOA Unavailable Unavailable Al Mudamgha, A Ward ULLOA Unavailable Unavailable Al Mudamgha, A Ali MD Unavailable Unavailable Al Mudamgha, A Ali MD Unavailable Unavailable Al Mudamgha, A Ali MD Unavailable Unavailable Al Mudamgha, A Ali MD Unavailable Unavailable Al Mudamgha, A Ali MD Unavailable Unavailable Al Mudamgha, A Ali MD Unavailable Unavailable Al Mudamgha, A Ali MD Unavailable Unavailable Al Mudamgha, A Ali MD Unavailable Unavailable Al Mudamgha, A Ali MD Unavailable Unavailable Al Mudamgha, A Ali MD Unavailable Unavailable Al Mudamgha, A Ali MD Unavailable Unavailable Al Mudamgha, A Ali MD Unavailable Unavailable Al Mudamgha, A Ali MD Unavailable Unavailable Al Mudamgha, A Ali MD Unavailable Unavailable Al Mudamgha, A Ali MD Unavailable Unavailable Al Mudamgha, A Ali MD Unavailable Unavailable Al Mudamgha, A Ali MD Unavailable Unavailable Al Mudamgha, A Ali MD Unavailable Unavailable Al Mudamgha, A Ali MD Unavailable Unavailable Al Mudamgha, A Ali MD Unavailable Unavailable Al Mudamgha, A Ali MD Unavailable Unavailable Al Mudamgha, A Ali MD Unavailable Unavailable Al Mudamgha, A Ali MD Unavailable Unavailable Al Mudamgha, A Ali MD Unavailable Unavailable Al Mudamgha, A Ali MD Unavailable Unavailable Al Mudamgha, A Ali MD Unavailable Unavailable Al Mudamgha, A Ali MD Unavailable Unavailable Al Mudamgha, A Ali MD Unavailable Unavailable Al Mudamgha, A Ali MD Unavailable Unavailable Al Mudamgha, A Ali MD Unavailable Unavailable Al Mudamgha, A Ali MD Unavailable Unavailable Al Mudamgha, A Ali MD Unavailable Unavailable Al Mudamgha, A Ali MD Unavailable Unavailable Al Mudamgha, A Ali MD Unavailable Unavailable Al Mudamgha, A Ali MD Unavailable Unavailable Al Mudamgha, A Ali MD Unavailable Unavailable Al Mudamgha, A Ali MD Unavailable Unavailable Al Mudamgha, A Ali MD Unavailable Unavailable Al Mudamgha, A Ali MD Unavailable Unavailable Al Mudamgha, A Ali MD Unavailable Unavailable Al Mudamgha, A Ali MD Unavailable Unavailable Al Mudamgha, A Ali MD Unavailable Unavailable Al Mudamgha, A Ali MD Unavailable Unavailable Al Mudamgha, A Ali MD Unavailable Unavailable Al Mudamgha, A Ali MD Unavailable Unavailable Al Mudamgha, A Ali MD Unavailable Unavailable Al Mudamgha, A Ali MD Unavailable Unavailable Al Mudamgha, A Ali MD Unavailable Unavailable Al Mudamgha, A Ali MD Unavailable Unavailable Al Mudamgha, A Ali MD Unavailable Unavailable Al Mudamgha, A Ali MD Unavailable Unavailable Al Mudamgha, A Ali MD Unavailable Unavailable Al Mudamgha, A Ali MD Unavailable Unavailable Al Mudamgha, A Ali MD Unavailable Unavailable Al Mudamgha, A Ali MD Unavailable Unavailable Al Mudamgha, A Ali MD Unavailable Unavailable Al Mudamgha, A Ali MD Unavailable Unavailable Al Mudamgha, A Ali MD Unavailable Unavailable Al Mudamgha, A Ali MD Unavailable Unavailable Al Mudamgha, A Ali MD Unavailable Unavailable Al Mudamgha, A Ali MD Unavailable Unavailable Al Mudamgha, A Ali MD Unavailable Unavailable Al Mudamgha, A Ali MD Unavailable Unavailable Al Mudamgha, A Ali MD Unavailable Unavailable Al Mudamgha, A Ali MD Unavailable Unavailable Al Mudamgha, A Ali MD Unavailable Unavailable Al Mudamgha, A Ali MD Unavailable Unavailable Al Mudamgha, A Ali MD Unavailable Unavailable Al Mudamgha, A Ali MD Unavailable Unavailable Al Mudamgha, A Ali MD Unavailable Unavailable Al Mudamgha, A Ali MD Unavailable Unavailable Al Mudamgha, A Ali MD Unavailable Unavailable Al Mudamgha, A Ali MD Unavailable Unavailable Al Mudamgha, A Ali MD Unavailable Unavailable Al Mudamgha, A Ali MD Unavailable Unavailable Al Mudamgha, A Ali MD Unavailable Unavailable Al Mudamgha, A Ali MD Unavailable Unavailable Al Mudamgha, A Ali MD Unavailable Unavailable Al Mudamgha, A Ali MD Unavailable Unavailable Al Mudamgha, A Ali MD Unavailable Unavailable Al Mudamgha, A Ali MD Unavailable Unavailable Al Mudamgha, A Ali MD Unavailable Unavailable Al Mudamgha, A Ali MD Unavailable Unavailable Al Mudamgha, A Ali MD Unavailable Unavailable Al Mudamgha, A Ali MD Unavailable Unavailable Al Mudamgha, A Ali MD Unavailable Unavailable Al Mudamgha, A Ali MD Unavailable Unavailable Al Mudamgha, A Ali MD Unavailable Unavailable Al Mudamgha, A Ali MD Unavailable Unavailable Al Mudamgha, A Ali MD Unavailable Unavailable Al Mudamgha, A Ali MD Unavailable Unavailable Al Mudamgha, A Ali MD Unavailable Unavailable Al Mudamgha, A Ali MD Unavailable Unavailable Georgette, Itzel BILLING MACHINE OPERATOR Unavailable Unavailable Georgette, Itzel BILLING MACHINE OPERATOR Unavailable Unavailable Georgette, Itzel BILLING MACHINE OPERATOR Unavailable Unavailable Georgette, Itzel BILLING MACHINE OPERATOR Unavailable Unavailable Georgette, Itzel BILLING MACHINE OPERATOR Unavailable Unavailable Georgette, Itzel BILLING MACHINE OPERATOR Unavailable Unavailable Georgette, Itzel BILLING MACHINE OPERATOR Unavailable Unavailable Georgette, Itzel BILLING MACHINE OPERATOR Unavailable Unavailable CHANLIECCO, C GIORGI MD Unavailable Unavailable CHANLIECCO, C GIORGI MD Unavailable Unavailable CHANLIECCO, C GIORGI MD Unavailable Unavailable CHANLIECCO, C GIORGI MD Unavailable Unavailable CHANLIECCO, C GIORGI MD Unavailable Unavailable CHANLIECCO, C GIORGI MD Unavailable Unavailable CHANLIECCO, C GIORGI MD Unavailable Unavailable CHANLIECCO, C GIORGI MD Unavailable Unavailable CHANLIECCO, C GIORGI MD Unavailable Unavailable CHANLIECCO, C GIORGI MD Unavailable Unavailable CHANLIECCO, C GIORGI MD Unavailable Unavailable Re-disclosure Warning The records that you are about to access may contain information from federally-assisted alcohol or drug abuse programs. If such information is present, then the following federally mandated warning applies: This information has been disclosed to you from records protected by federal confidentiality rules (42 CFR part 2). The federal rules prohibit you from making any further disclosure of this information unless further disclosure is expressly permitted by the written consent of the person to whom it pertains or as otherwise permitted by 42 CFR part 2. A general authorization for the release of medical or other information is NOT sufficient for this purpose. The Federal rules restrict any use of the information to criminally investigate or prosecute any alcohol or drug abuse patient.The records that you are about to access may contain highly sensitive health information, the redisclosure of which is protected by Article 27-F of the [facility] Public Health law. If you continue you may have access to information: Regarding HIV / AIDS; Provided by facilities licensed or operated by the [facility] Office of Mental Health; or Provided by the [facility] Office for People With Developmental Disabilities. If such information is present, then the following [facility] mandated warning applies: This information has been disclosed to you from confidential records which are protected by state law. State law prohibits you from making any further disclosure of this information without the specific written consent of the person to whom it pertains, or as otherwise permitted by law. Any unauthorized further disclosure in violation of state law may result in a fine or longterm sentence or both. A general authorization for the release of medical or other information is NOT sufficient authorization for further disc losure. Allergies and Adverse Reactions Type Description Substance Reaction Status Data Source(s ) Propensity to adverse reactions AVOCADO avocado allergen ic extract Anaphylaxis High Active [facility] High Propensity to adverse reactions ALMOND MEAL [place] Meal Anaphylax is High Active [facility] High Family History Family Member Name Family Member Gender Family Member Status Date o f Status Description Data Source(s) Unknown Male Problem [facility] ([facility] Encounters Encounter Providers Location Date Indications Data Source(s ) Outpatient Attender: OFELIA STEINBERG Main Office 03/25/2021 0 3:00:00 PM EDT [facility] ([facility]) Outpatient Attender: Ward Holt MD BF-BF 03/03/2021 12:00:0 0 AM EDT [facility] Emergency Attender: Rodney Bermudez MDConsultant: ELIZABETH UNKNOWN 02/23/2021 08:45:00 AM EDT - 02/23/2021 09:55:00 AM EDT [facility] ital Patient discharged. Outpatient Attender: Ward [id number] 02/17/2021 07:55:5 7 AM EDT [facility] Outpatient Attender: Scooter Estrella MD Physical Therapy 01/18/2021 0 9:15:00 AM [facility] Emergency Attender: Rodney Bermudez MD 01/17/2021 02:19:00 PM EDT - 01/17/2021 06:26:00 PM EDT [facility] Patient discharged. Emergency Attender: GIORGI MENJIVAR MD 01/12/2021 11:26:00 AM EDT - 01/12/2021 12:47:00 PM EDT [facility] Patient discharged. Outpatient [id number] 12/23/2020 12:00:00 AM EDT [facility] Outpatient Attender: Joy Peck PA-C [id number] 12:00:00 AM EDT - 12/10/2020 12:14:04 PM EDT [facility] Outpatient Attender: Ward Holt MD Admitter: Ward Holt MDReferrer: Itzel Palomino NP [email or web address] 11/19/2020 10:35:00 AM EDT - 11/19/2020 04:00:00 PM EDT [facility] Patient discharged. Outpatient Attender: Ward Holt MDReferrer: Ward Cisse MD MOB-[email or web address] 11/16/2020 08:33:23 AM EDT - 11/16/2020 09:11:20 AM EDT [facility] Outpatient Referrer: Ward Holt MD MOB-[email or web address] 11/16/2020 1 2:00:00 AM EDT [facility] Outpatient [id number] 10/30/2020 08:14:38 AM EDT [facility] Outpatient [id number] 10/21/2020 03:27:49 PM EDT [facility] Outpatient [id number] 10/16/2020 03:52:09 PM EDT [facility] Outpatient Attender: Ward Holt MD [id number] 09/23/2020 07:57:5 3 AM EDT [facility] Outpatient [id number] 09/17/2020 03:27:44 PM EDT [facility] Outpatient [id number] 09/01/2020 01:54:08 PM EDT [facility] Outpatient Attender: OFELIA STEINBERG Main Office 08/11/2020 1 1:45:00 AM EST [facility] [facility]) Outpatient Attender: OFELIA STEINBERG Main Office 08/03/2020 0 9:15:00 AM EST [facility] ([facility]) Outpatient Attender: Ward Holt MD BF-BF.CVS 06/24/2020 12:00:0 0 AM EST [facility] Outpatient Attender: OFELIA STEINBERG Main Office 06/15/2020 0 8:15:00 AM EST [facility] ([facility]) Outpatient BF-BF.CVS 04/30/2020 12:00:00 AM EST [facility] Outpatient Attender: SUBHA BLAND NP BF-BF 04/02/2020 12:00:0 0 AM EDT [facility] Outpatient Attender: Ward Holt MDAdmitter: Ward Cisse MD ES1-SJ.CVAU 03/20/2020 07:56:00 AM EDT - 03/20/2020 01:57:00 PM EDT [facility] Patient discharged. Outpatient Attender: Olimpia STEINBERG Main Office 03/16/2020 09:15:0 0 AM EDT [facility] ([facility]) Outpatient Referrer: Ward Holt MD MOB-MOB.PAT 09/2019 11:08:31 AM EDT - 03/15/2020 11:08:36 AM EDT [facility] Outpatient Referrer: Ward Holt MD 03/13/2020 09:52:0 7 AM EDT [facility] Outpatient Attender: Ward Holt MDReferrer: Ward Cisse MD MOB-MOB.PAT 03/13/2020 08:53:42 AM EDT - 03/13/2020 09:53:39 AM EDT [facility] BF-BF 03/09/2020 02:03:44 PM EDT [facility] Outpatient Referrer: Ward Holt MD 03/05/2020 08:13:2 2 AM EDT [facility] Immunizations Vaccine Date Status Description Data Source(s) 10/27/2020 12:00:00 AM EDT completed <td I D="[id number]">Covid-19 (Pfizer)</td><td>10/27/2020, 08/25/2020</td><td></td> [facility] COVID-19 VACCINE Pfizer 10/27/2020 12:00:00 AM EDT completed NYSIIS Vaccine Series Complete: YESThis Data wa s Submitted to [facility] Via [employer]. 08/25/2020 12:00:00 AM EDT completed <td I D="[id number]">Covid-19 (Pfizer)</td><td>10/27/2020, 08/25/2020</td><td></td> [facility] COVID-19 VACCINE Pfizer 08/25/2020 12:00:00 AM EDT completed TestObjectSIIS Vaccine Series Complete: YESThis Data wa s Submitted to [facility] Via [employer]. Medications Medication Brand Name Start Date Product Form Dose Route Admi nistrative Instructions Pharmacy Instructions Status Indications Reaction Description Data Source(s) gabapentin 300 MG Oral Capsule Gabapentin 04/14/2021 12:00:00 AM EDT ORAL active [facility] ([facility]) Mirtazapine 7.5 MG Oral Tablet Mirtazapine 04/14/2021 12:00:00 AM EDT ORAL active [facility] ([facility]) Omeprazole 20 MG Delayed Release Oral Capsule Omeprazole 03/24/2021 12:00:00 AM EDT ORAL completed [facility] ([facility]) duloxetine 30 MG Delayed Release Oral Capsule [Cymbalta] Cym bishop 03/24/2021 12:00:00 AM EDT ORAL active M EDENT ([facility]) gabapentin 600 MG Oral Tablet Gabapentin 03/24/2021 12:00:00 AM EDT ORAL completed [facility] ([facility]) Flecainide Acetate 50 MG Oral Tablet flecainide (TAMBO COR) 50 MG tablet flecainide (TAMBOCOR) 50 MG tablet 03/03/2021 12:00:00 AM EDT 50 mg Oral active Take 1 tablet (50 mg total) by m outh 2 (two) times a day [facility] 8 HR Acetaminophen 650 MG Extended Release Oral Tablet [Tyle nol] Tylenol 8 Hour 02/01/2021 12:00:00 AM EDT active [facility] ([facility]) 24 HR metoprolol succinate 200 MG Extended Release Ora l Tablet Metoprolol Succinate ER 01/21/2021 12:00:00 AM EDT ORAL completed [facility] ([facility]) rivaroxaban 20 MG Oral Tablet rivaroxaban (Xarelto) 20 MG TABS rivaroxaban (Xarelto) 20 MG TABS 12/23/2020 12:00:00 AM EDT 20 mg Oral active Take 1 tablet (20 mg total) by mouth daily [facility] normal saline flush 0.9 % injection 3 mL [id number] 11/19/2020 02:00:00 PM EDT 3 mL Intravenous active 3 mL , Intravenous, Every 8 hours (scheduled), First dose on Kendra 11/19/20 at 1400, PACU (only)
flush per protocol, D/C Main IV fluid if appropriate
[facility] Medication administered onsite normal saline flush 0.9 % injection 3 mL [id number] 11/19/2020 02:00:00 PM EDT 3 mL Intravenous active 3 mL , Intravenous, Every 8 hours (scheduled), First dose on Kendra 11/19/20 at 1400, Pre-op
Rapid push positive pressure flushing shall be performed with a 10 cc normal saline syringe to check the PATENCY of a PIV site prior to any infusion therapy initiation unless resistance is met.
[facility] Medication administered onsite normal saline flush 0.9 % injection 3 mL [id number] 11/19/2020 02:00:00 PM EDT 3 mL Intravenous active 3 mL , Intravenous, Every 8 hours (scheduled), First dose on Kendra 11/19/20 at 1400, Pre-op
Rapid push positive pressure flushing shall be performed with a 10 cc normal saline syringe to check the PATENCY of a PIV site prior to any infusion therapy initiation unless resistance is met.
[facility] Medication administered onsite 1 ML Ketorolac Tromethamine 30 MG/ML Car tridge ketorolac (TORADOL) injection 30 mg ketorolac (TORADOL) injection 30 mg 11/19/2020 01:46:43 PM EDT 30 mg Intravenous completed 30 mg, Intrav enous, Once as needed, severe pain (7-10), Starting on Kendra 11/19/20 at 1346, For 1 dose [facility] Medication administered onsite HYDROmorphone (DILAUDID) injection 0.5 mg [id number] 11/19/2020 01:20:51 PM EDT 0.5 mg Intravenous active 0.5 mg, Intravenous, Every 5 min PRN, severe pain (7-10), Starting on Kendra 11/19/20 at 1320, For 5 doses, PACU (only) [facility] Medication administered onsite ondansetron (ZOFRAN) injection 4 mg [id number] 11/19/2020 01:20:5 1 PM EDT 4 mg Intravenous completed 4 mg, In travenous, Once as needed, nausea, vomiting, Starting on Kendra 11/19/20 at 1320, For 1 dose, PACU (only)
If not given in last 4 hours
[facility] Medication administered onsite Albuterol 0.833 MG/ML / Ipratropium Brom maxine 0.167 MG/ML Inhalant Solution ipratropium-albuterol (DUO-NEB) 0.5-2.5 mg/mL nebulizer solution 3 mL ipratropium-albuterol (DUO-NEB) 0.5-2.5 mg/mL nebulizer solution 3 mL 11/19/2020 01:20:51 PM EDT 3 mL Inhalation active 3 mL, Inhalation, Once as needed, shortness of breath, Starting on Kendra 11/19/20 at 1320, For 1 dose, PACU (only) [facility] Medication administered onsite fentaNYL Citrate (PF) (SUBLIMAZE) injection 25 mcg [id number] 11/19/2020 01:20:51 PM EDT 25 ug Intravenous active 25 mcg, Intravenous, Every 5 min PRN, moderate pain (4 to 6), Starting on Kendra 11/19/20 at 1320, For 5 doses, PACU (only) [facility] Medication administered onsite 10 ML Atropine Sulfate 0.1 MG/ML Prefill ed Syringe atropine sulfate injection 0.5 mg atropine sulfate injection 0.5 mg 11/19/2020 01:20:50 PM EDT 0.5 mg active 0.5 mg, Intrave nous Push, Every 5 min PRN, other, As needed, for heart rate less than 60 BPM and the patient is hemodynamically unstable and/or SBP is less than 90mmHg, Starting on Kendra 11/19/20 at 1320, For 1 day, PACU (only)
Not to exceed a total of 3 mg or 0.04 mg/kg. Max of 6 doses
[facility] Medication administered onsite protamine injection [id number] 11/19/2020 12:33:22 PM EDT active As needed, Starting on Kendra 11/19/20 at 1233, Intra-Proc edure [facility] Medication administered onsite 1 ML heparin sodium, porcine 1000 UNT/ML Injection hep mikael (porcine) injection heparin (porcine) injection 11/19/2020 12:01:54 PM EDT active As needed, Starting on Kendra 11/19/20 at 1201, Intra-Procedure [facility] Medication administered onsite lidocaine (PF) (XYLOCAINE-MPF) 1 % injection [id number] 03/2021 11:55:13 AM EDT active As needed, Start ing on Kendra 11/19/20 at 1155, Intra-Procedure [facility] Medication administered onsite 24 HR metoprolol succinate 100 MG Extended Release Ora l Tablet Metoprolol Succinate ER 08/28/2020 12:00:00 AM EDT ORAL completed [facility] ([facility]) Omeprazole 20 MG Delayed Release Oral Capsule Omeprazole 08/03/2020 12:00:00 AM EST ORAL active [facility] ([facility] Metoprolol Tartrate 50 MG Oral Tablet Metoprolol Tartrate 12:00:00 AM EST ORAL completed [facility] ([facility]) rivaroxaban 20 MG Oral Tablet [Xarelto] Xarelto 06/14/2020 12:00:0 0 AM EST ORAL active [facility] ([facility] rivaroxaban 20 MG Oral Tablet rivaroxaban (XARELTO) 20 MG TABS rivaroxaban (XARELTO) 20 MG TABS 03/24/2020 12:00:00 AM EDT 20 mg Oral active Take 1 tablet (20 mg total) by mouth daily To start after procedure --discharge nurse to inform when to start. [facility] Insurance Providers Payer name Policy type / Coverage type Policy ID Covered constitution party ID Covered constitution party's relationship to lópez Policy López Plan Information [id number] xxxxxxxxx [id number] Ashley [id number] Ashley [id number] Ashley [id number] INSURANCE COVID-19 COVID Ashley C OVID INSURANCE COVID-19 [id number] [facility] ([facility]) [id number] Self [id number] [facility] - O/P [id number] 18 [id number] [facility] - PHYSICIAN [id number] 18 [id number] [facility] ACTIVE DUTY [id number] SP [id number] [facility] ([facility]) [id number] Self [id number] [facility] ACTIVE DUTY [id number] SP [id number] Problems, Conditions, and Diagnoses Code Display Name Description Problem Type Effective Dates Data Source(s) Z7901 jail (current) use of anticoagulant s jail (current) use of anticoagulants Diagnosis 02/23/2021 08:45:00 AM EDT [facility] M06576 Nicotine dependence, cigarettes, uncompl icated Nicotine dependence, cigarettes, uncomplicated Diagnosis 02/23/2021 08:45:00 AM EDT [facility] R9431 Abnormal electrocardiogram [ECG] [EKG] A bnormal electrocardiogram [ECG] [EKG] Diagnosis 02/23/2021 08:45:00 AM EDT [facility] R002 Palpitations Palpitations Diagnosis 02/23[facility] Lumbago with sciatica, left side Lumbago with sc iatica, left side Diagnosis 02/23/2021 08:45:00 AM EDT [facility] M545 Low back pain Low back pain Diagnosis 02/23/2021 08:45:00 AM [facility] Z04181 Unspecified place in unspeci fied non-institutional (private) residence as the place of occurrence of the external cause Unspecified place in unspecified non-institutional (private) residence as the place of occurrence of the external cause Diagnosis 01/17/2021 02:19:00 PM EDT [facility] Z617ITE Fall (on) (from) unspecified stairs and steps, initial encounter Fall (on) (from) unspecified stairs and steps, initial encounter Diagnosis 01/17/2021 02:19:00 PM EDT [facility] M5416 Radiculopathy, lumbar region Radiculopathy, lumbar reg ion Diagnosis 01/17/2021 02:19:00 PM EDT [facility] S77369 Personal history of nicotine dependence Personal history of nicotine dependence Diagnosis 01/12/2021 11:26:00 AM EDT [facility] G8929 Other chronic pain Other chronic pain Diagnosis 08/2020 11:26:00 AM EDT [facility] I48.91 Unspecified atrial fibrillation Unspecified atri al fibrillation Diagnosis 12/23/2020 03:35:03 PM EDT [facility] I48.0 Paroxysmal atrial fibrillation Paroxysmal atrial fibri llation Diagnosis 12/10/2020 11:07:56 AM EDT [facility] U07.1 COVID-19 COVID-19 Diagnosis 11/16/2020 12:00:00 AM ED T [facility] [id number] Lumbosacral radiculopathy Lumbosacral radiculopathy Pr oblem 02/01/2021 12:00:00 AM EDT [facility] ([facility]) [id number] Chronic low back pain Chronic low back pain Problem 02/01/2021 12:00:00 AM EDT [facility] ([facility]) I48.91 Atrial fibrillation Atrial fibrillation [id number] 09/29/2020 12:00:00 AM EDT [facility] R06.02 Dyspnea Dyspnea Problem 08/03/2020 12:00:00 AM ES T [facility] ([facility]) R55 Syncope and collapse Syncope and collapse Problem 06/15/2020 12:00:00 AM EST [facility] ([facility]) R07.2 Precordial pain Precordial pain Problem 06/15/2020 12:0 0:00 AM EST [facility] ([facility]) Surgeries/Procedures Procedure Description Date Indications Data Source(s) Implantable Loop Recorder System, Review And Report 04/15/2021 12:00:00 AM EDT [facility] ([facility]) ECG ROUTINE ECG W/LEAST 12 LDS W/I&R 03/25/2021 12:00: 00 AM EDT [facility] ([facility]) OFFICE OUTPATIENT VISIT 25 MINUTES 03/25/2021 12:00:00 AM EDT [facility] ([facility]) Implantable Loop Recorder System, Review And Report 03/12/2021 12:00:00 AM EDT [facility] ([facility]) Implantable Loop Recorder System, Review And Report 02/08/2021 12:00:00 AM EDT [facility] ([facility]) Needle electromyography, each extremity, with related paraspinal areas, when performed, done with nerve conduction, amplitude and latency/velocity study; complete, five or more muscles studied, innervated by three or more nerves or four or more spinal levels (list separately in addition to the code for primary procedure). 02/03/2021 12:00:00 AM EDT [facility]EN T ([facility] ) Needle electromyography, each extremity, with related paraspinal areas, when performed, done with nerve conduction, amplitude and latency/velocity study; complete, five or more muscles studied, innervated by three or more nerves or four or more spinal levels (list separately in addition to the code for primary procedure). 02/03/2021 12:00:00 AM EDT MEDEN T ([facility], ) 22853 Nerve conduction studies 13 or more studies NEW 201202/03/2021 12:00:00 AM EDT [facility] ([facility] ) X-Ray Spine Lumbosacral Bending Only 2 Or 3 Views 01/18/2021 12:00:00 AM EDT [facility] ([facility] ) OFFICE OUTPATIENT NEW 45 MINUTES 01/18/2021 12:00:00 A M EDT [facility] ([facility] ) Implantable Loop Recorder System, Review And Report 01/06/2021 12:00:00 AM EDT MEDKATH[facility]N ([facility] Implantable Loop Recorder System, Review And Report 12/03/2020 12:00:00 AM EDT BARTOLOME ([facility]) EP STUDY <td>EP STUDY</td><td>Routine </td><td>11/19/2020 12:32 PM EDT</td><td> Atrial fibrillation, unspecified type</td><td></td> 11/19/2020 12:32:27 PM EDT Atrial fibrillation, unspecified type [facility] Atrial fibrillation, unspecified type ECG ROUTINE ECG W/LEAST 12 LDS TRCG ONLY W/O I&R <td>E CG 12- LEAD</td><td>Routine</td><td>11/16/2020 9:11 AM EDT</td><td> Atrial fibrillation, unspecified type</td><td></td> 11/16/2020 09:11:02 AM EDT Atrial fibrillation, unspecified type [facility] Atrial fibrillation, unspecified type BLOOD COUNT COMPLETE AUTOMATED <td>CBC</td><td>Routine </td><td>11/16/2020 9:10 AM EDT</td><td> Atrial fibrillation, unspecified type</td><td> </td> 11/16/2020 09:10:00 AM EDT Atrial fibrillation, unspecified type [facility] Atrial fibrillation, unspecified type BLOOD TYPING ABO <td>TYPE AND SCREEN</td><td> Routine</td><td>11/16/2020 9:10 AM EDT</td><td> Atrial fibrillation, unspecified type</td><td> </td> 11/16/2020 09:10:00 AM EDT Atrial fibrillation, unspecified type [facility] Atrial fibrillation, unspecified type BASIC METABOLIC PANEL CALCIUM TOTAL <td>BASIC METABOLI C PANEL</td><td>Routine</td><td>11/16/2020 9:10 AM EDT</td><td> Atrial fibrillation, unspecified type</td><td> </td> 11/16/2020 09:10:00 AM EDT Atrial fibrillation, unspecified type [facility] Atrial fibrillation, unspecified type Implantable Loop Recorder System, Review And Report 10/27/2020 12:00:00 AM EDT [facility] ([facility]) Implantable Loop Recorder System, Review And Report 09/24/2020 12:00:00 AM EDT [facility] ([facility]) OFFICE OUTPATIENT VISIT 15 MINUTES 08/11/2020 12:00:00 AM EST [facility] ([facility]) OFFICE OUTPATIENT VISIT 15 MINUTES 08/03/2020 12:00:00 AM EST [facility] ([facility]) XTRNL ECG < 48 HR RECORDING 07/20/2020 12:00:00 AM EST [facility] ([facility]) XTRNL ECG CONTINUOUS RHYTHM PHYS REVIEW&INTERPJ 2020 12:00:00 AM EST [facility] ([facility]) ECHO TTHRC R-T 2D W/WOM-MODE COMPL SPEC&COLR DOP 07/16 12:00:00 AM EST [facility] ([facility]) CV STRS TST XERS&/OR RX CONT ECG PHYS SI&R 07/09/2020 12:00:00 AM EST [facility] ([facility]) ECG ROUTINE ECG W/LEAST 12 LDS W/I&R 06/15/2020 12:00: 00 AM EST [facility] ([facility]) OFFICE OUTPATIENT VISIT 25 MINUTES 06/15/2020 12:00:00 AM EST [facility] ([facility]) ECG ROUTINE ECG W/LEAST 12 LDS W/I&R 03/16/2020 12:00: 00 AM EDT [facility] ([facility]) Results ID Date Data Source [id number] 03/03/2021 12:34:28 PM [facility] INFORMATIONPatient MRN Name Date of Age Gend*PT [id number] Gallito Hinojosa 1995 26 years M ---PT Location Admission Date/Time Visit ID Attending Provider --- --- --- --- EPI ID CSN Admitting Provider [id number] ---[facility] [id number], [address] (First Floor)[place], [place] [address]Du.: Fax: Vatient: Gallito Camargo : 1995Date: 03/03/21CARDIOLOGY TELEMEDICINE VISITPatient was identified by name and date of .Verbal consent was obtained from the patient for this telemedicine visit.Patient is aware of the risks, limitations, and benefits of a telemedicinevisit.This telemedicine assessment was conducted remotely with the assistance ofOcclutech communication technology. Telephone Only Codes 69547: 21-30 minutesof medical discussion: Telephone Only .Subjective:Gallito Camargo is 26 years male with atrial fibrillationHISTORY OF PRESENT ILLNESS: Patient is evaluated today for his atrialfibrillation. He is status post repeat cryoablation November 19 of this year. Thepatient continues to have episodes of palpitations which she states are shorterin duration than his previous episodes of atrial fibrillation. He has a looprecorder which is very suggestive of paroxysmal atrial tachycardia. At times itmay be a paroxysmal atrial fibrillation but appears to have more organizedatrial activity. He has been to the emergency room a number of times because ofsymptoms of palpitations associated with chest pain. He denies any syncope. Hedenies any shortness of breath.Past medical history1. Paroxysmal atrial fibrillation status post cryoablation March 20, 2020.Status post repeat cryoablation November 19, 2020FAMILY HISTORY: family history includes Healthy, No Significant History in hisfather and mother.SOCIAL HISTORY: reports that he has been smoking cigarettes. He has a 5.00pack-year smoking history. He has never used smokeless tobacco. He reportsprevious alcohol use. He reports that he does not use drugs.REVIEW OF SYSTEMS: Constitutional: Denies syncope. Denies fever, chills, weightloss or gain. Eyes: Denies blindness. Cardiovascular: Positive palpitations.Respiratory: Denies shortness of breath and dyspnea on exertion. GI: Deniesabdominal pain, nausea or vomiting. : Denies dysuria or hematuria.Musculoskeletal: Negative lower extremity edema. Integumentary: Denies rash.Neurologic: Denies seizures. Psychiatric: Denies depression or anxiety.Hematologic: Denies anemia.Current Outpatient Medications: DULoxetine (CYMBALTA) 20 MG capsule, Take 40 mg by mouth daily, Disp: , Rfl: gabapentin (NEURONTIN) 600 MG tablet, Take 600 mg by mouth 3 (three) times aday, Disp: , Rfl: loperamide (IMODIUM) 2 MG capsule, Take 2 mg by mouth 4 (four) times a day asneeded, Disp: , Rfl: metoprolol tartrate (LOPRESSOR) 25 MG tablet, Take 100 mg by mouth daily 2tab daily, Disp: , Rfl: Omeprazole 20 MG TBEC, Take 20 mg by mouth daily as needed (for heartburn) ,Disp: , Rfl: ondansetron (ZOFRAN-ODT) 4 MG disintegrating tablet, Take 4 mg by mouth every8 (eight) hours as needed, Disp: , Rfl: rivaroxaban (Xarelto) 20 MG TABS, Take 1 tablet (20 mg total) by mouth daily,Disp: 90 tablet, Rfl: 3ALLERGIES: is allergic to almond meal and avocado.Objective:PHYSICAL EXAMINATION: Deferred due to Telemedicine encounterSTUDIES REVIEWED: Referral records including [facility] transmissionsEKG: Deferred due to telemedicine encounter.Assessment/Plan:ASSESSMENT/PLAN: This is a 26-year-old gentleman with paroxysmal atrialfibrillation status post cryoablation x2 who has what appears to be a paroxysmalatrial tachycardia. This certainly could be pulmonary vein reconnection or itmay be an atrial tachycardia from another site. The patient is still early postablation. There is data that suggest a 90-day blanking period may in fact betoo long but we will continue him to treat the patient medically at this time.When I reviewed the temperatures achieved at the ablation procedures it lookslike we were able to achieve excellent temperatures. This does not necessarilymean the patient cannot have pulmonary vein reconnection. I will start thepatient on flecainide 50 mg twice daily. He will continue all of his currentmedications. We will increase the flecainide as needed. I would like to treathim for at least 6 months with flecainide and metoprolol to see if we canimprove his symptoms. After 6 months if things look good we will stop theflecainide and see if he has any recurrence. If he does he may require a thirdablation.I have spent 25 minutes with the patient, counseling/coordinating the patient'scare. I discussed the diagnosis of atrial fibrillation and discussed Managementoption risks and benefitsFollow Up 6 monthsSignature: Ward Durán MD, [facility], [facility]ITALCardiac Electrophysiology and Arrhythmia ServiceDate: March 03, 2021Time: 12:29 PMThis document or parts of this document, were dictated using Egnyteware. A reasonable attempt at proofreading has been made to minimize errors.Please call with any questions or corrections. Name Value Range Interpretation Code Description Data Sera rce(s) Supporting Document(s) ID Date Data Source [id number] 02/23/2021 08:07:00 [place] [address] RESPIRATORY CARE REPORT ==== ---------NAME------- NUMBER SEX AGE ADMIT DISC. XRAY# F/C TYPEMARY GALLITO Orta [id number] M 26 02/23/21 02/23/21 [id number] SB4 E/R DATE OF : 1995 M/R# [id number] #: [id number] [place]-04 LOCATION: EMERGENCY DEPT EKG 83531 COMP LETE:02/23/21 15:13 [place] [address] PHYSICIAN: ANDREE Gallagher Name Value Range Interpretation Code Description Data Sera rce(s) Supporting Document(s) ID Date Data Source [id number] 02/23/2021 08:45:00 AM EDT [facility] 1 OrderSheet [facility] Emergency Department [address] [place] [address] Phone #: ext- [phone] 02/23/2021 08:44 Patient: GALLITO HERNANDEZ Sex: M : 1995 Age: 26yWEIGHT:73.4 kg (S) HEIGHT:67 inches (S) BMI:25.4ALLERGIES: [place] (Diagnostic), [place] (Diagnostic)CHIEF COMPLAINT: back pain, chronic back painDIAGNOSIS: Lumbar radiculopathy, PalpitationsLAB ORDERSOrder Description Priority Entered Acknowledged InitialedDIAGNOSTIC STUDY ORDERSOrder Description Priority Entered Acknowledged InitialedMEDICATION/IV/DRIP/FLUID ORDERSOrder Description Priority Entered Acknowledged InitialedLidoderm Patch 09:23 02/23/2021 09:42 TerryTopical (Patch 5 %) Rodney Bermudez ; Camilla RN1 Patch (NOW x1,On for 12 hours, offfor 12 hours.)Motrin 600 mg PO 09:23 02/23/2021 09:42 TerryX1 dose: 600 mg Rodney Bermudez ; Camilla RN(NOW x1)GENERAL ORDERSOrder Description Priority Entered Acknowledged InitialedEKG 09:28 02/23/2021 09:33 Rodney Hou RN[Electronically signed by Rodney Bermudez (11:16 02/23/2021)][Electronically signed by Hema Sampson RN (12:00 02/23/2021)][Electronically locked by Hema Sampson RN (12:00 02/23/2021)] Name Value Range Interpretation Code Description Data Sera rce(s) Supporting Document(s) ID Date Data Source [id number] 02/23/2021 08:45:00 AM EDT [facility] 1 Medication Reconciliation Report [facility] Emergency Department [address] [place] [address] Phone #: ext- [phone] 02/23/2021 08:44 Patient: GALLITO HERNANDEZ Sex: M : 1995 Age: 26yWeight: 73.4 kgHeight/Length: 67 in.BMI: 25.4ALLERGIES: [place] (Diagnostic), [place] (Diagnostic)The patient's Home Medications are listed below:CONTINUE TAKING THE FOLLOWING MEDICATIONS: Cymbalta Oral (20 mg), daily Gabapentin Oral 300 mg, daily Metoprolol Succinate ER Oral (100 mg) 20 mg, daily Xarelto Oral (20 mg), dailyThe source(s) of the original Home Medication information:Not obtained.The following Medications were given to the patient in the Emergency Department:Lidoderm Patch Transdermal 1 patch, administered: 09:42 02/23/2021Motrin [PO] PO 600 mg, administered: :42 02/23/2021The following Medications were prescribed to the patient:None. Name Value Range Interpretation Code Description Data Sera rce(s) Supporting Document(s) ID Date Data Source [id number] 02/23/2021 08:45:00 AM EDT [facility] 1 Medication Administration Record [facility] Emergency Department [address] [place] [address] Phone #: ext [phone] 02/23/2021 08:44 Patient: GALLITO HERNANDEZ Sex: M : 1995 Age: 26yWeight: 73.4 kgHeight/Length: 67 inBMI: 25.4ALLERGIES: [place] (Diagnostic), [place] (Diagnostic) Date/Time Medication Administered Medication OrderedGiven LIDODERM PATCH (LIDOCAINE) Lidoderm Patch Topical (Patch 509:42 02/23/2021 Dose: 1 patch Ointment Transdermal %) 1 Patch (NOW x1, On for 12Terry LILI Sampson hours, off for 12 hours.)Given MOTRIN [PO] (IBUPROFEN) Motrin 600 mg PO X1 dose: 73484:42 02/23/2021 Dose: 600 mg Tablets PO mg (NOW x1)Hema Sampson RN Name Value Range Interpretation Code Description Data Sera rce(s) Supporting Document(s) ID Date Data Source [id number] 02/23/2021 08:45:00 AM EDT [facility] 1 General Instructions [facility] Emergency Department [address] [place] [address] Phone #: ext- [phone] 02/23/2021 08:44 Patient: GALLITO HERNANDEZ Sex: M : 1995 Age: 26yChronic right sided and left sided lumbar radiculopathy.Benign palpitations.INSTRUCTIONSWarnings: GENERAL WARNINGS: Return or contact your physician immediately if your conditionworsens or changes unexpectedly, if not improving as expected, or if other problems arise.Your Current Medications: Your current home medications have been reviewed.CONTINUE TAKING THE FOLLOWING MEDICATIONS:Cymbalta Oral : Capsule Delayed Release Particles 20 mg, daily.Gabapentin Oral : 300 mg daily.Metoprolol Succinate ER Oral : Tablet Extended Release 24 Hour 100 mg, 20 mg daily.Xarelto Oral : Tablet 20 mg, daily.Understanding of the discharge instructions verbalized by patient.Follow- up with: [facility], , , [address] [place] [address], , [place], [address] Follow up in three days if not well. Call for an appointment. Reason for referral: evaluation. ADDITIONAL INFORMATIONSciatica 2 General Instructions [facility] Emergency Department [address] [place] [address] Phone #: ext- [phone] 02/23/2021 08:44 Patient: GALLITO HERNANDEZ Sex: M : 1995 Age: 26ySciatica is a condition that causes pain in the lower back that spreads down into the buttock, hip, andleg. Sometimes the leg pain can happen without any back pain. Sciatica happens when a spinalnerve is irritated or has pressure put on it as it comes out of the spinal canal in the lower back. Thismost often happens when a bulge or rupture of a nearby spinal disk presses on the nerve. Sciaticacan also be caused by a narrowing of the spinal canal (spinal stenosis) or spasm of the muscle in thebuttocks that the sciatic nerve passes through (piriformis muscle). Sciatica may also be called lumbarradiculopathy.Sciatica may start after a sudden twisting or bending force, such as in a car accident. Or it canhappen after a simple awkward movement. In either case, muscle spasm often also happens. Musclespasm makes the pain worse.A healthcare provider makes a diagnosis of sciatica from your symptoms and a physical exam.Unless you had an injury from a car accident or fall, you usually won't have X-rays taken at this time.This is because the nerves and disks in your back can't be seen on an X-ray. If the provider seessigns of a compressed nerve, you will need to schedule an MRI scan. Nerve conductions studies andelectromyography are nerve tests that can also help find the cause of nerve pain. Signs of acompressed nerve include loss of strength in a leg.Most sciatica gets better with medicine, exercise, and physical therapy. If your symptoms continueafter medical treatment, you may need surgery or injections to your lower back, depending on howsevere your symptoms are.Home careFollow these tips when caring for yourself at home: 3 General Instructions [facility] Emergency Department [address] [place] [address] Phone #: ext- [phone] 02/23/2021 08:44 [facility]: [id number] Sex: M : 1995 Age: 26y As soon as possible, start sitting up or walking. This will help you prevent problems that come from staying in bed for long periods. When in bed, try to find a position that is comfortable. A firm mattress is best. Try lying flat on your back with pillows under your knees. You can also try lying on your side with your knees bent up toward your chest and a pillow between your knees. Don't sit for long periods. This puts more stress on your lower back than standing or walking. Use heat from a hot shower, hot bath, or heating pad to help ease pain. Massage can also help. You can also try using an ice pack. You can make your own ice pack by putting ice cubes in a plastic bag. Wrap the bag in a thin towel. Try both heat and cold to see which works best. Use the method that feels best for 20 minutes several times a day. You may use acetaminophen or ibuprofen to ease pain, unless another pain medicine was prescribed. Note: If you have chronic liver or kidney disease, talk with your healthcare provider before taking these medicines. Also talk with your provider if you've had a stomach ulcer or gastrointestinal bleeding. Use safe lifting methods. Don't lift anything heavier than 15 pounds until all of the pain is gone.Follow-up careFollow up with your healthcare provider, or as advised. You may need physical therapy or more tests.If X-rays were taken, a radiologist will look at them. You will be told of any new findings that mayaffect your care.When to seek medical adviceCall your healthcare provider right away if any of these occur: Pain gets worse even after taking prescribed medicine Weakness or numbness in 1 or both legs or hips Numbness in your groin or genital area You can't control your bowel or bladder Fever (100.4 F or 38 C) Redness or swelling over your back or spine [employer]. [address] [place] [address], [place] [address]. All rights reserved. This information is not intended as asubstitute for professional medical care. Always follow your healthcare professional's instructions. 4 General Instructions [facility] Emergency Department [address] [place] [address] Phone #: ext- [phone] 02/23/2021 08:44 Patient: GALLITO HERNANDEZ Sex: M : 1995 Age: 26yHeart PalpitationsPalpitations are the feeling that your heart is beating hard, fast, or irregular. Some describe it as"pounding," "flip-flopping in the chest," or "skipped beats." Palpitations may occur in someone withheart disease. But they can also occur in a healthy person.Heart-related causes: Heart rhythm problem (arrhythmia) Heart valve disease Disease of the heart muscle (cardiomyopathy) Coronary artery disease High blood zofdfcfqGxi-ywjfc-mqkzxqa causes: Certain medicines such as asthma inhalers and decongestants Some herbal supplements, energy drinks and pills, and weight loss pills 5 General Instructions [facility] Emergency Department [address] [place] [address] Phone #: ext- [phone] 02/23/2021 08:44 Patient: GALLITO HERNANDEZ Sex: M : 1995 Age: 26y Illegal stimulant drugs such as cocaine, crank, methamphetamine, PCP, bath salts, and ecstasy Caffeine, alcohol, and tobacco Health conditions such as thyroid disease, anemia, anxiety, and panic disorderSometimes the cause can't be found.Home careFollow these home care tips: Don't use too much caffeine, alcohol, or tobacco, or any stimulant paula gs. Tell your doctor about any prescription or njca-xba-sbprroq or herbal medicines you take.Follow-up care Follow up with your doctor, or as advised.Call 911This is the fastest and safest way to get to the emergency department. The paramedics can also starttreatment on the way to the hospital, if needed.Don't wait until your symptoms are severe to call 911. These are reasons to call 911: Chest pain Shortness of breath Feeling lightheaded, faint, or dizzy, or losing consciousness Very irregular heartbeat Rapid heartbeat that makes you uncomfortable Slower than usual heart rate along with symptoms Chest pain with weakness, dizziness, heavy sweating, nausea, or vomiting Extreme drowsiness, confusion, or weakness Weakness of an arm or leg, or on one side of the face Trouble with speech or visionWhen to seek medical advice 6 General Instructions [facility] Emergency Department [address] [place] [address] Phone #: ext- [phone] 02/23/2021 08:44 Patient: GALLITO HERNANDEZ Sex: M : 1995 Age: 26yCall your healthcare provider right away if you have palpitations that last longer than normal, or aredifferent from your past palpitations. [id number] [employer]. [address] [place] [address], [place] [address]. All rights reserved. This information is not intended as asubstitute for professional medical care. Always follow your healthcare professional's instructions. You have been given the following additional information: Sciatica Palpitations(Electronically signed by Rodney Bermudez 02/23/2021 11:16) Name Value Range Interpretation Code Description Data Sera rce(s) Supporting Document(s) ID Date Data Source [id number] 02/23/2021 08:45:00 AM EDT [facility] 1 Clinical Report - Nurses [facility] Emergency Department [address] [place] [address] Phone #: ext- [phone] 02/23/2021 08:44 Patient: GALLITO HERNANDEZ Sex: M : 1995 Age: 26yTRIAGEArrived by private vehicle. ( pt has hx herniated disc and A Fib and increased back pain this morningand 15 minute run A Fib, now pt c/o increased low back pain,).Triage time: 08:51 02/23/2021. Acuity: LEVEL 3.Chief Complaint: BACK PAIN and (A FIB).09:07 02/23/21.This started today. No history of recent trauma. No numbness, weakness, tingling, trouble walking orfever. No extremity pain.Treatment RADIO ENGINEER:None.SEPSIS SCREEN: SIRS SCREEN NEGATIVE. SEPSIS SCREEN NEGATIVE. No suspected or confirmedsigns of infection present. (08:56 02/23/2021). --09:07 02/23/21 Hema Sampson RN09:01 02/23/21. BP: 127/88. MAP: 101. HR: 87. RR: 16. O2 saturation: 100% on room air. Temp: 98 F(oral). Pain level now: 02/19. --09:07 02/23/21 Hema Sampson RN.Weight: 73.4 kg stated. Height/Length: 67 inches Per Patient. BMI: 25.4. --09:00 02/23/21 Hema Sampson RN.MedicationsMetoprolol Succinate ER Oral (Tablet Extended Release 24 Hour 100 mg) 20 mg, daily. Xarelto Oral (Tablet 20 mg), daily. --09:03 02/23/21 Hema Sampson RN Gabapentin Oral 300 mg, daily. --09:02/23/21 Hema Sampson RN Cymbalta Oral (Capsule Delayed Release Particles 20 mg), daily. --09:04 02/23/21 Hema Sampson RN.AllergiesAlmond (Diagnostic).Avocado (Diagnostic). --09:02/23/21 Hema Sampson RN.Ehombzj63:02/23/21.PAST MEDICAL HX: Heart disease.SOCIAL HX: Smoker- current status unknown (1/2 ppd). No alcohol use or drug use. He was offeredHIV testing but declined and hepatitis C testing but declined. He has not traveled outside the [place]Infectious disease exposure: No infectious disease exposure. 2 Clinical Report - Nurses [facility] Emergency Department [address] [place] [address] Phone #: ext- [phone] 02/23/2021 08:44 Patient: GALLITO HERNANDEZ Sex: M : 1995 Age: 26y SELF HARM ASSESSMENT: Self harm assessment was performed. The patient answered "no" to the question(s) "Have you recently felt down, depressed, or hopeless?", "Do you have thoughts of harming or killing yourself?", "Do you have a plan for harming or killing yourself?", "Have you recently had thoughts about harming or killing others?", "Do you have any dangerous items in your possession?", "Have you noticed less interest or pleasure in doing things?", "Are you here because you tried to hurt yourself?&qu ot; and "Have you ever tried to hurt yourself before today?". ABUSE ASSESSMENT: Abuse history: reports abuse. (no). Abuse assessment. No suspicion of abuse. NUTRITIONAL RISK ASSESSMENT: The nutritional risk assessment revealed no deficiencies. FUNCTIONAL ASSESSMENT: Functional assessment: no impairments noted. LEARNING NEEDS ASSESSMENT: The learning needs assessment revealed no barriers. FALL RISK ASSESSMENT: Fall risk assessment completed. No risk factors identified. SKIN INTEGRITY ASSESSMENT: Skin integrity risk assessment completed. No skin integrity risk identified. --09:02/23/21 Hema Sampson RN. FAMILY HX: No significant family medical history. --09:32 02/23/21 Rodney Bermudez. Interventions 09:02/23/21. Identification band on patient. To room. --09:02/23/21 Hema Sampson RN.PHYSICAL VUYOKMEAWK28:02/23/21. Ambulatory to room.GENERAL / NEURO / PSYCH: Alert. Oriented X 4.RESPIRATORY: Respirations not labored. Chest nontender. Breath sounds within normal limits.CVS: Cardiac rh ythm: normal sinus rhythm; (0850).GI / : Abdomen soft and nontender. Bowel sounds within normal limits.EXTREMITIES: ROM of extremities within normal limits.BACK: Limited ROM of the back. Soft tissue tenderness in the right lower and left lower lumbarparaspinous region. --09:02/23/21 Hema Sampson RN.NURSING PROGRESS NOTES09:02/23/21. Patient gowned. Head of bed elevated 45 degrees. Two patient identifiers checked.Call light placed in reach. Bed placed in lowest position. Brakes of bed on. Patient ready for evaluation-ED physician notified. --09:02/23/21 Hema Sampson RN EKG time: (08:53 02/23/2021). EKG was performed by a nurse and shown to the ED physician. NSR. --09:02/23/21 Hema Sampson RN 3 Clinical Report - Nurses [facility] Emergency Department [address] [place] [address] Phone #: ext- [phone] 02/23/2021 08:44 Patient: GALLITO HERNANDEZ Sex: M : 1995 Age: 26y 09:42 02/23/2021 Lidoderm Patch (Lidocaine) Transdermal Ointment 1 patch given. Allergies verified and confirmed 5 rights. Information reviewed with ebrt ent. --09:42 02/23/21 Hema Sampson RN 09:42 02/23/2021 Motrin (Ibuprofen) PO Tablets 600 mg given. Allergies verified and confirmed 5 rights. Information reviewed with patient. --09:42 02/23/21 Hema Sampson RN.DISPOSITION / DISCHARGE 09:44 02/23/21. BP: 133/87. HR: 64. RR: 16. O2 saturation: 100%. Temp: 98.1 F. Pain level now 02/19. --09:45 02/23/21 [facility] 02[facility]21. Departure time: 09:55 02/23/2021. Condition at departure: unchanged. No learning barriers present. Discharge instructions provided and reviewed with the patient. Reviewed medication(s) (no changes). Reviewed rest and ice instructions. Reviewed referrals. Provided to follow-up provider. Patient verbalized understanding. Written instructions provided in Nauruan. The patient was discharged by the physician. He was discharged home. He left ambulatory and via private vehicle. Patient driving. --:02/23/21 Hema Sampson RN.Locked/Released at 02/23/2021 12:00 by Hema Sampson RN Name Value Range Interpretation Code Description Data Sera rce(s) Supporting Document(s) ID Date Data Source [id number] 02/23/2021 08:45:00 AM EDT [facility] 1 Clinical Report - Physicians/Mid Levels [facility] Emergency Department [address] [place] [address] Phone #: ext- [phone] 02/23/2021 08:44 Patient: [facility]ALL[id number] Sex: M : 1995 Age: 26y Time Seen: 09:23 02/23/2021. Historian- patient.HISTORY OF PRESENT ILLNESS Chief Complaint: BACK PAIN and CHRONIC BACK PAIN. It is described as being moderate in degree and in the area of the lower lumbar spine. The quality is noted to be "pain". Onset- months and it is still present. It has been constant. No bladder dysfunction, bowel dysfunction or sensory loss. Additional history - Back pain and bulging disc for 5 years. Same low back pain and is on Gabapentin. This morning he felt palpations and felt like his heart rate was fast. atrial fibrillation diagnosed year ago. Palpitations started this morning without exertion. Patient denies an injury. No other injury. Similar symptoms previously. Recent medical care: The patient was seen recently in the emergency department.REVIEW OF SYSTEMSNo fever, difficulty with urination, hematuria, depression or cough. No difficulty breathing, abdominal pain,vomiting, bloody stools or weight loss. No chest pain, urinary incontinence or urinary problems or faintingepisodes. The patient has had palpitations. All other systems reviewed and are negative.PAST HISTORYSee nurses notes. The patient has had prior back pain. Has not had a prior back injury. No history ofdiabetes mellitus. Problems: Bulging discs. Lumbar Radiculopathy. Additional Surgeries: Ablation X2. Cardiac ablation. Loop recorder. Medications: Cymbalta Oral (Capsule Delayed Release Particles 20 mg), daily. Gabapentin Oral 300 mg, daily. Metoprolol Succinate ER Oral (Tablet Extended Release 24 Hour 100 mg) 20 mg, daily. Xarelto Oral (Tablet 20 mg), daily. Allergies: [place] (Diagnostic). 2 Clinical Report - Physicians/Mid Levels [facility] Emergency Department [address] [place] [address] Phone #: ext- [phone] 02/23/2021 08:44 Patient: GALLITO HERNANDEZ Sex: M : 1995 Age: 26y [place] (Diagnostic).SOCIAL HISTORYCurrent every day smoker.FAMILY HISTORYNo significant family medical history.ADDITIONAL NOTESThe nursing notes have been reviewed.PHYSICAL EXAMVital Signs: 02/23/2021 09:01 BP: 127/88. MAP: 101. HR: 87. RR: 16. O2 saturation: 100% on room air.Temp: 98 F. Pain level now: 9/10.Appearance: Alert. No acute distress.Eyes: Pupils equal, round and reactive to light.ENT: Ears normal. Pharynx normal.Neck: Normal inspection. Neck nontender. Painless ROM.CVS: Heart sounds normal. Pulses normal.Respiratory: No respiratory distress. Painless inspiration.Abdomen: No visible injury. Soft and nontender. Bowel sounds normal.Back: Normal inspection. Soft tissue tenderness in the upper, mid and lower central lumbar area. Nolimitation in ROM.Skin: Skin warm. Normal skin color.Extremities: Extremities exhibit normal ROM. Extremities nontender.Neuro: Oriented X 3. Mood/affect normal. No motor deficit. No sensory deficit. Straight leg raising:negative on the right and negative on the left. Reflex exam: right patellar 2+ and left patellar 2+.LABS, X-RAYS, AND EKGEKG: EKG time: 08:53 02/23/2021. Rate: 87. Normal P waves. Normal ZECHARIAH. Normal QRS complex.Normal axis. Normal ST and T waves and QT. T wave inversion in lead III and aVF. earlyrepolarization. The study has been interpreted contemporaneously by me. Interpretation time: 09:.PROGRESS AND PROCEDURESCourse of Care: 09:33 02/23/21. Chronic pain pain without saddle anesthesia, weakness, fever, urinaryretention. Lidoderm patch applied.No signs of atrial fibrillation. CT scan reviewed. 09:35 02/23/21. EKG shows not pericariditis. Early repolarization on EKG. Old medical records ordered. Patient has had multiple ED visits. Disposition: Discharged. Condition: stable. 3 Clinical Report - Physicians/Mid Levels [facility] Emergency Department [address] [place] [address] Phone #: ext- [phone] 02/23/2021 08:44 Patient: GALLITO HERNANDEZ Sex: M : 1995 Age: 26yCLINICAL IMPRESSION Chronic right sided and left sided lumbar radiculopathy. Benign palpitations.INSTRUCTIONS Warnings: GENERAL WARNINGS: Return or contact your physician immediately if your condition worsens or changes unexpectedly, if not improving as expected, or if other problems arise. Your Current Medications: Your current home medications have been reviewed. CONTINUE TAKING THE FOLLOWING MEDICATIONS: Cymbalta Oral : Capsule Delayed Release Particles 20 mg, daily. Gabapentin Oral : 300 mg daily. Metoprolol Succinate ER Oral : Tablet Extended Release 24 Hour 100 mg, 20 mg daily. Xarelto Oral : Tablet 20 mg, daily. Understanding of the discharge instructions verbalized by patient. Follow-up with: [facility], , , [address] [place] [address], [address] Follow up in three days if not well. Call for an appointment. Reason for referral: evaluation.(Electronically signed by Rodney Bermudez 02/23/2021 11:16) Name Value Range Interpretation Code Description Data Sera rce(s) Supporting Document(s) ID Date Data Source [id number] 02/12/2021 12:00:00 AM EDT [facility] Name Value Range Interpretation Code Description Data Sera rce(s) Supporting Document(s) PCR NEGATIVE [facility] This lab was ordered by [facility] are and reported by [facility]. ID Date Data Source [id number] 01/17/2021 06:32:00 PM EDT [facility] [address] [place] [address] PHONE: [phone] FAX: [phone] Name .................. : MARY Orta Acct Number.................. : [id number] ROOM. ................. : VT-19 MR Number ................... : [id number] Stay type ............. : E/R Discharge Date......... ... : Admit Date ......... : 01/17/21 Admit Phys .................... : ANDREE Gallagher Date of ....... : 1995 Family Phys ................... : UNKNOWN CO Phone .................. : [phone] Age ................................ : 26 Film# .................. .:[id number] Sex ................................. : M Unsigned transcriptions are preliminary reports and do not represent a medical or legal document CT LUMBAR SP W/O CONT [id number] COMPLETE:01/17/21 16:54 [id number] Reason(s): fell down stairs, acute on chronic LBP CT LUMBAR SPINE WITHOUT IV CONTRAST INDICATION: Fell down stairs, acute exacerbation of chronic back pain. COMPARISON: X-rays 01/12/2021 CONTRAST: None PROCEDURE: The patient is scanned axially from T12 to the sacrum. Multiplanar reconstructions are performed. One or more of the following dose reduction techniques were utilized in effectively lowering the radiation dose for this examination: Automated Exposure Control, Adjustment of the mA and/or kV according to patient size, or Iterative reconstruction. FINDINGS: The lumbar vertebral bodies show normal height and alignment. No fracture or significant bone lesion. No spondylolysis or spondylolisthesis. L1-2, L2-3, L3-4, L4-5 are unremarkable. L5-S1: Right subarticular disc protrusion. Mild posterior displacement right S1 nerve root. Moderate narrowing right foramen with compression of exiting right L5 nerve root. IMPRESSION: 1. L5-S1 right subarticular disc protrusion with mass effect on the right S1 and L5 nerve roots. 2. No fracture. Electronically Reviewed and Signed By Sudarshan Weir MD , 01/17/21 18:32, JWS Page 1 of [address] [place] [address] PHONE: [phone] FAX: [phone] Name .................. : MARYBRIDGER ZENDEJAS You Acct Number.................. : [id number] ROOM. ................. : VT-19 MR Number ................... : [id number] Stay type ............. : E/R Discharge Date......... ... : Admit Date ......... : 01/17/21 Admit Phys .................... : ANDREE Gallagher Date of ....... : 1995 Family Phys ............ ....... : UNKNOWN CO Phone .................. : [phone] Age ................................ : 26 Film# .................. .:[id number] Sex ................................. : M Unsigned transcriptions are preliminary reports and do not represent a medical or legal document CT LUMBAR SP W/O CONT [id number] COMPLETE:01/17/21 16:54 [id number] Reason(s): fell down stairs, acute on chronic LBP Transcribe Initials: TAWANNA , Transcribe Date: 01/17/21 17:50, Dictation Date: Copy for: BURKE Crandall via fax Copy for: EMERGENCY DEPT via modem Copy for: 710 MED REC DISCHARGED Page 2 of 2 Name Value Range Interpretation Code Description Data Sera rce(s) Supporting Document(s) ID Date Data Source [id number] 01/17/2021 02:19:00 PM EDT [facility] 1 OrderSheet [facility] Emergency Department [address] [place] [address] Phone #: ext- [phone] 01/17/2021 13:55 Patient: GALLITO HERNANDEZ Sex: M : 1995 Age: 26yWEIGHT:73.4 kg (S) HEIGHT:67 inches (S) BMI:25.4ALLERGIES: [place] (Diagnostic), [place] (Diagnostic)CHIEF COMPLAINT: fall, -3-, down stairs:DIAGNOSIS: Lumbar radiculopathy, FallLAB ORDERSOrder Description Priority Entered Acknowledged InitialedDIAGNOSTIC STUDY ORDERSOrder Description Priority Entered Acknowledged InitialedCT LUMBAR SP STAT 16:54 01/17/2021 16:59 TerryW/O CONT Derik STEINBERG; Camilla PEARSON(Oxygen?(No))(IV?(No)) Reason for Study: fell down stairs, acute on chronic LBPMEDICATION/IV/DRIP/FLUID ORDERS Order Description Priority Entered Acknowledged InitialedMorphine IM 4 mg 16:54 01/17/2021 17:04 Hema(NOW x1, HIGH Derik STEINBERG; Camilla RNALERTMEDICATION)Zofran ODT PO 4 16:54 01/17/2021 17:05 Terrymg (NOW x1) Derik STEINBERG; Camilla RNGENERAL ORDERSOrder Description Priority Entered Acknowledged Initialed[Electronically signed by Balbina Ramirez RN (18:26 01/17/2021)][Electronically signed by Derik Olson (18:46 01/17/2021)][Electronically locked by Balbina Ramirez RN (18:26 01/17/2021)] Name Value Range Interpretation Code Description Data Sera rce(s) Supporting Document(s) ID Date Data Source [id number] 01/17/2021 02:19:00 PM EDT [facility] 1 Medication Reconciliation Report [facility] Emergency Department [address] [place] [address] Phone #: ext- [phone] 01/17/2021 13:55 Patient: GALLITO HERNANDEZ Sex: M : 1995 Age: 26yWeight: 73.4 kgHeight/Length: 67 in.BMI: 25.4ALLERGIES: [place] (Diagnostic), [place] (Diagnostic)The patient's Home Medications are listed below:CONTINUE TAKING THE FOLLOWING MEDICATIONS: Metoprolol Succinate ER Oral (100 mg), daily Xarelto Oral (20 mg), dailyThe source(s) of the original Home Medication information:Not obtained.The following Medications were given to the patient in the Emergency Department:Morphine [IM] IM 4 mg, administered: 17:04 01/17/2021Zofran ODT [PO] PO 4 mg, administered: 17:05 01/17/2021The following Medications were prescribed to the patient:Percocet 5 mg-325 mg tablet Take 1 tablet every eight hours as needed for pain for 2 days -- Dispense6 tablet. Refills: 0. Substitution permitted.Pharmacy - [facility] [id number] ; [place] [address]. . -- MARYAN Velasco Name Value Range Interpretation Code Description Data Sera rce(s) Supporting Document(s) ID Date Data Source [id number] 01/17/2021 02:19:00 PM EDT [facility] 1 Medication Administration Record [facility] Emergency Department [address] [place] [address] Phone #: ext- [phone] 01/17/2021 13:55 Patient: GALLITO HERNANDEZ Sex: M : 1995 Age: 26yWeight: 73.4 kgHeight/Length: 67 inBMI: 25.4ALLERGIES: [place] (Diagnostic), [place] (Diagnostic) Date/Time Medication Administered Medication OrderedGiven MORPHINE [IM] Morphine IM 4 mg (NOW x1, HIGH17:04 01/17/2021 Dose: 4 mg IM ALERT MEDICATION)Hema Sampson RNGiven ZOFRAN ODT [PO] (ONDANSETRON Zofran ODT PO 4 mg (NOW x1)17:05 01/17/2021 HCL)Hema Sampson RN Dose: 4 mg Oral Disintegrating Tablets PO Name Value Range Interpretation Code Description Data Sera rce(s) Supporting Document(s) ID Date Data Source [id number] 01/17/2021 02:19:00 PM EDT [facility] 1 General Instructions [facility] Emergency Department [address] [place] [address] Phone #: ext- [phone] 01/17/2021 13:55 Patient: GALLITO HERNANDEZ Sex: M : 1995 Age: 26yAcute left sided lumbar radiculopathy. No sensory loss or motor deficit.Fall from stairs and on the same level by slipping.INSTRUCTIONSNo strenuous activity until better.(continue prednisone and flexaril as prescibed).Warnings: SEDATIVE MEDICATION: You were given sedative medication during your visit. Do not driveor operate dangerous machinery for 12 hours.GENERAL WARNINGS: Return or contact your physician immediately if your condition worsens orchanges unexpectedly, if not improving as expected, or if other problems arise. SPECIFICALLY, return ifyou develop weakness of the foot, arm or leg, numbness, pain or incontinence of feces (loss of bowelcontrol) or urine (loss of bladder control).Your Current Medications: Your current home medications have been reviewed.CONTINUE TAKING THE FOLLOWING MEDICATIONS:Metoprolol Succinate ER Oral : Tablet Extended Release 24 Hour 100 mg, daily.Xarelto Oral : Tablet 20 mg, daily.Prescription Medications:Percocet 5 mg-325 mg tablet Take 1 tablet every eight hours as needed for pain for 2 days -- Dispense6 tablet. Refills: 0. Substitution permitted.Pharmacy - [facility] [phone] ; [place] [address]. .Understanding of the discharge instructions verbalize d by patient. Expected course of injury, dischargeinstructions, activity level, prescriptions x1, follow-up appointment and risks and benefits of treatmentreviewed with patient and understanding verbalized. Agrees to plan of care.Follow-up with: [facility] [place] [facility], , , [address] [place] [address], , [place], [address] Follow up in one day even if well. Call for the next available appointment. Reason for referral: evaluationand recommend MRI LS spine and referral to ortho spine . Summary of care provided to patient via paper. ADDITIONAL INFORMATION 2 General Instructions [facility] Emergency Department [address] [place] [address] Phone #: ext- [phone] 01/17/2021 13:55 Patient: GALLITO HERNANDEZ Sex: M : 1995 Age: 26ySciaticaSciatica is a condition that causes pain in the lower back that spreads down into the buttock, hip, andleg. Sometimes the leg pain can happen without any back pain. Sciatica happens when a spinalnerve is irritated or has pressure put on it as it comes out of the spinal canal in the lower back. Thismost often happens when a bulge or rupture of a nearby spinal disk presses on the nerve. Sciaticacan also be caused by a narrowing of the spinal canal (spinal stenosis) or spasm of the muscle in thebuttocks that the sciatic nerve passes through (piriformis muscle). Sciatica may also be called lumbarradiculopathy.Sciatica may start after a sudden twisting or bending force, such as in a car accident. Or it canhappen after a simple awkward movement. In either case, muscle spasm often also happens. Musclespasm makes the pain worse.A healthcare provider makes a diagnosis of sciatica from your symptoms and a physical exam.Unless you had an injury from a car accident or fall, you usually won't have X-rays taken at this time.This is because the nerves and disks in your back can't be seen on an X-ray. If the provider seessigns of a compressed nerve, you will need to schedule an MRI scan. Nerve conductions studies andelectromyography are nerve tests that can also help find the cause of nerve pain. Signs of acompressed nerve include loss of strength in a leg.Most sciatica gets better with medicine, exercise, and physical therapy. If your symptoms continueafter medical treatment, you may need surgery or injections to your lower back, depending on howsevere your symptoms are. 3 General Instructions [facility] Emergency Department [address] [place] [address] Phone #: ext- [phone] 01/17/2021 13:55 --- Patient: GALLITO HERNANDEZ Sex: M : 1995 Age: 26yHome careFollow these tips when caring for yourself at home: As soon as possible, start sitting up or walking. This will help you prevent problems that come from staying in bed for long periods. When in bed, try to find a position that is comfortable. A firm mattress is best. Try lying flat on your back with pillows under your knees. You can also try lying on your side with your knees bent up toward your chest and a pillow between your knees. Don't sit for long periods. This puts more stress on your lower back than standing or walking. Use heat from a hot shower, hot bath, or heating pad to help ease pain. Massage can also help. You can also try using an ice pack. You can make your own ice pack by putting ice cubes in a plastic bag. Wrap the bag in a thin towel. Try both heat and cold to see which works best. Use the method that feels best for 20 minutes several times a day. You may use acetaminophen or ibuprofen to ease pain, unless another pain medicine was prescribed. Note: If you have chronic liver or kidney disease, talk with your healthcare provider before taking these medicines. Also talk with your provider if you'v e had a stomach ulcer or gastrointestinal bleeding. Use safe lifting methods. Don't lift anything heavier than 15 pounds until all of the pain is gone.Follow-up careFollow up with your healthcare provider, or as advised. You may need physical therapy or more tests.If X-rays were taken, a radiologist will look at them. You will be told of any new findings that mayaffect your care.When to seek medical adviceCall your healthcare provider right away if any of these occur: Pain gets worse even after taking prescribed medicine Weakness or numbness in 1 or both legs or hips Numbness in your groin or genital area You can't control your bowel or bladder Fever (100.4 F or 38 C) Redness or swelling over your back or spine 4 General Instructions [facility] Emergency Department [address] [place] [address] Phone #: ext- [phone] 01/17/2021 13:55 Patient: GALLITO HERNANDEZ Sex: M : 1995 Age: 26y [id number] [employer] [place], [place] [address]. All rights reserved. This information is not intended as asubstitute for professional medical care. Always follow your healthcare professional's instructions.Mechanical FallYou have had a fall today. It appears that the cause is what is called mechanical. That means thatyou slipped, tripped, or lost your balance. If your fall had been because of fainting or a seizure, youmight need other tests.It is normal to feel sore and tight in your muscles and back the next day, and not just the muscles youinjured at first. Remember, all the parts of your body are connected, so while initially one area hurts,the next day another may hurt. Also, when you injure yourself, it causes inflammation, which thencauses the muscles to tighten up and hurt more. After the initial worsening, it should graduallyimprove over the next few days. Do report more severe pain.Even without a definite head injury, you can still get a concussion from your head suddenly jerkingforward, backward, or sideways when falling. Concussions and even bleeding can still happen,especially if you have had a recent injury or take blood thinner medicine. It is not unusual to have amild headache and feel tired and even nauseous or dizzy.Home care Rest today and go back to your normal activities when you are feeling back to normal. If you were injured during the fall, follow the advice from your healthcare provider regarding care of your injury. At first, do not try to stretch out the sore spots. If there is a strain, stretching may make it worse. Massage may help relax the muscles without stretching them. You can use an ice pack or cold compress on and off to the sore spots 10 to 20 minutes at a time, as often as you feel comfortable. This may help reduce the inflammation, swelling and pain. If you have any scrapes or abrasions, they usually heal within 10 days. It is important to keep the abrasions clean while they initially start to heal. However, an infection may happen even with proper care, so watch for early signs of infection (such as warmth, redness, or swelling).Medicines Talk to your healthcare provider before taking new medicines, especially if you have other medical problems or are taking other medicines. If you need anything for pain, you can take acetaminophen or ibuprofen, unless you were given a different pain medicine to use. Talk with your healthcare provider before using these 5 General Instructions [facility] Emergency Department [address] [place] [address] Phone #: ext- [phone] 01/17/2021 13:55 Patient: GALLITO HERNANDEZ Sex: M : 1995 Age: 26y medicines if you have chronic liver or kidney disease, or ever had a stomach ulcer or gastrointestinal bleeding, or are taking blood thinner medicines. Be careful if you are given prescription pain medicines, narcotics, or medicine for muscle spasm. They can make you sleepy and dizzy, and can affect your coordination, reflexes, and judgment. Do not drive or do work where you can injure yourself when taking them.Fall prevention Fix, remove, or replace anything that caused your fall. Make your home safe by keeping walkways clear of objects you may trip over. Use nonslip pads under rugs. Don't use small area rugs or throw rugs. Don't walk in poorly lit areas. Don't stand on chairs or wobbly ladders. Use caution when reaching overhead or looking upward. This position can cause a loss of balance. Be sure your shoes fit properly, have nonslip bottoms and are in good condition. Be cautious when going up and down curbs, and walking on uneven sidewalks. If your balance is poor, consider using a cane or walker. Stay as active as you can. Balance, flexibility, strength, and endurance all come from exe rcise. They all play a role in preventing falls. If you have pets, know where they are before you stand up or walk so you don't trip over them. Limit alcohol intake. Alcohol can cause balance problems and increase the risk of falls. Use night lights. Have your eyes tested to be sure you are seeing well, even if you already wear glasses.Follow-upFollow up with your healthcare provider, or as advised. If X-rays or CT scans were done, you will benotified if there is a change in the reading, especially if it affects treatment.Call [phone] if any of these happen: 6 General Instructions [facility] Emergency Department [address] [place] [address] Phone #: ext- [phone] 01/17/2021 13:55 Patient: GALLITO HERNANDEZ Sex: M : 1995 Age: 26y Trouble breathing Confused or difficulty arousing Fainting or loss of consciousness Rapid or very slow heart rate Seizure Difficulty with speech or vision, weakness of an arm or leg Difficulty walking or talking, loss of balance, numbness or weakness in one side of your body, or facial droopWhen to seek medical adviceCall yo healthcare provider right away if any of these happen: Repeated mechanical falls, or unexplained falls Dizziness Severe headache Blood in vomit, stools (black or red color) [id number] [employer]. [address] [place] [address], [place] [address]. All rights reserved. This information is not intended as asubstitute for professional medical care. Always follow your healthcare professional's instructions.Fall PreventionFalls often occur due to slipping, tripping or losing your balance. Millions of people fall every year andinjure themselves. Here are ways to reduce your risk of falling again. Think about your fall, was there anything that caused your fall that can be fixed, removed, or replaced? Make your home safe by keeping walkways clear of objects you may trip over, such as electric cords. Use non-slip pads under rugs. Don't use area rugs or small throw rugs. Use non-slip mats in bathtubs and showers. Install handrails and lights on staircases. The handrails should be on both sides of the stairs. Don't walk in poorly lit areas. 7 General Instructions [facility] Emergency Department [address] [place] [address] Phone #: ext- [phone] 01/17/2021 13:55 Patient: GALLITO HERNANDEZ Sex: M : 1995 Age: 26y Don't stand on chairs or wobbly ladders. Use caution when reaching overhead or looking upward. This position can cause a loss of balance. Be sure your shoes fit properly, have non-slip bottoms and are in good condition. Wear shoes both inside and out. Don't go barefoot or wear slippers. Be cautious when going up and down stairs, curbs, and when walking on uneven sidewalks. If your balance is poor, con electrical controls assembler using a cane or walker. If your fall was related to alcohol use, stop or limit alcohol intake. If your fall was related to use of sleeping medicines, talk to your healthcare provider about this. You may need to reduce your dosage at bedtime if you awaken during the night to go to the bathroom. To reduce the need for nighttime bathroom trips: o Don't drink fluids for several hours before going to bed o Empty your bladder before going to bed o Men can keep a urinal at the bedside Stay as active as you can. Balance, flexibility, strength, and endurance all come from exercise. They all play a role in preventing falls. Ask your healthcare provider which types of activity are right for you. Get your vision checked on a regular basis. If you have pets, know where they are before you stand up or walk so you don't trip over them. Use night lights. Go over all your medicines with a pharmacist or other healthcare provider to see if any of them could make you more likely to fall. [id number] [employer]. [address] [place] [address], [place] [address]. All rights reserved. This information is not intended as asubstitute for professional medical care. Always follow your healthcare professional's instructions. You have been given the following additional information: Sciatica Mechanical Fall Fall Prevention 8 General Instructions [facility] Emergency Department [address] [place] [address] Phone #: ext- [phone] 01/17/2021 13:55 Patient: GALLITO HERNANDEZ Sex: M : 1995 Age: 26yNo strenuous activity until better.(Electronically signed by MARYAN Velasco 01/17/2021 18:46) Name Value Range Interpretation Code Description Data Sera rce(s) Supporting Document(s) ID Date Data Source [id number] 01/17/2021 02:19:00 PM EDT [facility] 1 Clinical Report - Nurses [facility] Emergency Department [address] [place] [address] Phone #: ext- [phone] 01/17/2021 13:55 Patient: GALLITO HERNANDEZ Sex: M : 1995 Age: 26yTRIAGEArrived by private vehicle. Historian: patient. Accompanied by family.Acuity: LEVEL 3.Chief Complaint: FALL: down 3 stairsAlert. No acute distress.Location of injuries: lower back. Occurred 10:00 01/17/2021. ( PT reports falling down approximately 3stairs this mornings and landing on his back, He has chronic back problems and was seen here last weekand had a ct scan done. At the time of the fall today, he defecated on himself and then later lost controlover his bladder.). The patient has had trouble walking.Treatment RADIO ENGINEER:Seen within the last 30 days in the ED; seen for similar symptoms; CT done.SEPSIS SCREEN: SIRS SCREEN NEGATIVE. SEPSIS SCREEN NEGATIVE. No suspected or confirmedsigns of infection present.ACE COMA SCORE: 15- eyes open- spontaneous (4); best verbal response- oriented (5); bestmotor response- obeys commands (6). --14:15 01/17/21 Belgica Joaquin R.N.14:08 01/17/21. BP: 127/71. HR: 85. RR: 20. O2 saturation: 97%. Temp: 98.6 F. Pain level now 1010.--14:15 01/17/21 Belgica Joaquin R.N.Weight: 73.4 kg stated. Height/Length: 67 inches Per Patient. BMI: 25.4. --14:12 01/17/21 Belgica Joaquin R.N.MedicationsXarelto Oral (Tablet 20 mg), daily. --14:14 01/17/21 Belgica Joaquin R.N. Metoprolol Succinate ER Oral (Tablet Extended Release 24 Hour 100 mg), daily. --14:14 01/17/21Belgica Joaquin R.N.AllergiesAvocado (Diagnostic). --14:13 01/17/21 Belgica Joaquin R.N.[place] (Diagnostic). --14:14 01/17/21 Belgica Joaquin R.N.PROBLEMS:Depression. --14:15 01/17/21 Belgica Joaquin R.N.Back Pain.Atrial Fibrillation. --16:48 01/17/21 MARYAN Velasco 2 Clinical Report - Nurses [facility] Emergency Department [address] [place] [address] Phone #: ext- [phone] 01/17/2021 13:55 Patient: GALLITO HERNANDEZ Sex: M : 1995 Age: 26y The following entry was modified by MARYAN Velasco, 16:48 01/17/21 Back Pain. --14:14 01/17/21 Belgica Joaquin R.N. The following entry was modified by MARYAN Velasco, 16:48 01/17/21 Atrial Fibrillation. --14:14 01/17/21 Belgica Joaquin R.N.. ADDITIONAL SURGERIES: Cardiac ablation. Loop recorder. --14:15 01/17/21 Belgica Joaquin R.N. History PAST MEDICAL HX: Immunizations: up-to-date. SOCIAL HX: Light tobacco smoker- less than 1/2 a pack per day. No alcohol use or drug use. The patient was offered HIV testing but declined and hepatitis C testing but declined. The patient has not traveled outside the [place] Infectious disease exposure: The patient was not exposed to C-diff, MRSA, VRE, CRE or Coronavirus. SELF HARM ASSESSMENT: Self harm assessment was performed. The patient answered "no" to the question(s) "Have you recently felt down, depressed, or hopeless?", "Do you have thoughts of harming or killing yourself?", "Do you have a plan for harming or killing yourself?", "Have you recently had thoughts about harming or killing others?", "Do you have any dangerous items in your possession?", "Have you noticed less interest or pleasure in doing things?", "Are you here because you tried to hurt yourself?" and "Have you ever tried to hurt yourself before today?". ABUSE ASSESSMENT: No report of abuse. NUTRITIONAL RISK ASSESSMENT: The nutritional risk assessment revealed no deficiencies. FUNCTIONAL ASSESSMENT: Functional assessment: no impairments noted. LEARNING NEEDS ASSESSMENT: The learning needs assessment revealed no barriers. FALL RISK ASSESSMENT: Fall risk assessment completed. No risk factors identified. SKIN INTEGRITY ASSESSMENT: Skin integrity risk assessment completed. No skin integrity risk identified. --14:15 01/17/21 Belgica Joaquin R.N. Interventions Identification band on patient. To waiting room. No allergy band on patient. --14:15 01/17/21 Belgica Joaquin R.N.PHYSICAL ASSESSMENTAmbulatory to room.GENERAL / NEURO / PSYCH: Alert. Oriented X 4. Appears in pain. 3 Clinical Report - Nurses [facility] Emergency Department [address] [place] [address] Phone #: ext- [phone] 01/17/2021 13:55 Patient: GALLITO HERNANDEZ Sex: M : 1995 Age: 26y HEENT: Pupils equal, round and reactive to light. Head non- tender. RESPIRATORY: Respirations not labored. Chest nontender. Breath sounds within normal limits. GI / : Abdomen soft and nontender. EXTREMITIES: Extremities exhibit normal ROM. Neuro-vascular status intact to the extremity. SKIN: Skin is warm and dry. BACK: Soft tissue tenderness in the left lower lumbar paraspinous region. --16:27 01/17/21 Hema Sampson RN.NURSING PROGRESS NOTES16:27 01/17/21. Patient gowned. Two patient identifiers checked. Call light placed in reach. Bedplaced in lowest position. Brakes of bed on. Patient ready for evaluation- chart flagged. --16:01/17/21Hema Sampson RN 17:01/17/2021 Morphine IM 4 mg given. Given in the left deltoid. Allergies verified and confirmed 5 rights. Information reviewed with patient including sedative warning. --17:01/17/21 Hema Sampson RN 17:05 01/17/2021 Zofran ODT (Ondansetron HCl) PO Oral Disintegrating Tablets 4 mg given. Allergies verified and confirmed 5 rights. Information reviewed with patient. --17:05 01/17/21 Hema Sampson RN 17:11 01/17/21. BP: 126/76. HR: 83. RR: 16. O2 saturation: 99%. --17:11 01/17/21 [place] [facility] machine maintenance supervisor, Cecilia, ER Tech1 Patient transported to CT by wheelchair with mask and predictive maintenance technician. (1720). --17:31 01/17/21 Hema Sampson RN Patient returned from CT by wheelchair with mask and predictive maintenance technician. (1731). --17:33 01/17/21 Hema Sampson RN 18:16 01/17/21. BP: 114/83. HR: 84. RR: 16. O2 saturation: 100%. --18:16 01/17/21 [facility] machine maintenance supervisor, Cecilia, Tech1.DISPOSITION / DISCHARGE 17:49 01/17/21. Departure time: 17:49 01/17/2021. Transferred. Provided to EMS ([facility] Transported via ambulance by pin inserter. Report was given to a nurse via a phone call. Report included information regarding patient's allergies and condition including: recent changes, vital signs and critical labs. Report included treatment information regarding medications given or pending; type and amount of IV fluids and medications infusing. All questions were answered. Report was acknowledged. (Delmi gresham). --17:49 01/17/21 Hema Sampson RN Charted On Wrong Patient --17:50 01/17/21 Hema Sampson RN 17:41 01/17/21. BP: 138/87. MAP: 104. HR: 61. RR: 16. O2 saturation: 98% on room air. Temp: 98.5 F (oral). Pain level now: 06/21. --17:49 01/17/21 Hema Sampson RN 18:17 01/17/21. BP: 114/83. HR: 84. RR: 16. O2 saturation: 100%. Temp: 98.5 F. Pain level now 10/19. 4 Clinical Report - Nurses [facility] Emergency Department [address] [place] [address] Phone #: ext- [phone] 01/17/2021 13:55 Patient: GALLITO HERNANDEZ Sex: M : 1995 Age: 26y --18:18 01/17/21 [facility] [place] [address] Departure time: 18:24 01/17/2021. --18:24 01/17/21 Balbina Ramirez RN Condition at departure: stable. No learning barriers present. Discharge instructions provided and reviewed with the patient. Reviewed medication(s) side effects, precautions, dosing and course information. Prescription(s) sent electronically to pharmacy. Reviewed referral to a primary care physician. Patient verbalized understanding. Written instructions provided in Nauruan. The patient was discharged by the physician warehouse assistant. He was discharged home and accompanied by spouse. He left ambulatory and via private vehicle. Spouse driving. --18:26 01/17/21 Balbina Ramirez RN.Locked/Released at 01/17/2021 18:26 by Balbina Ramirez RN Name Value Range Interpretation Code Description Data Sera rce(s) Supporting Document(s) ID Date Data Source [id number] 01/17/2021 02:19:00 PM EDT [facility] 1 Clinical Report - Physicians/Mid Levels [facility] Emergency Department [address] [place] [address] Phone #: ext- [phone] 01/17/2021 13:55 Patient: GALLITO HERNANDEZ Sex: M : 1995 Age: 26y Time Seen: 16:48 01/17/2021. Arrived- By private vehicle. Historian- patient. RETURN VISIT: recently seen in this ED by another ED physician within past 30 days. Seen now for a new unrelated complaint and the same problem as before. Disposition decision: 18:10 01/17/2021.HISTORY OF PRESENT ILLNESS Chief Complaint: FALL: Location of injuries- (Missed step and fell down several stairs at home and injured lower back, pt has hx chronic and acute on chronic LBP, recently seen in this ED and given percocet and PO steroids for back pain. Pt states he lost bladder control due to initial pain when he landed on back but has urinated normally. since with full control of bladder). The injury occurred today. Occurred at home. Fell: The patient complains of severe pain. No blow to the head, neck pain, loss of consciousness or seizure. Not dazed.REVIEW OF SYSTEMSThe patient complains of pain on weight bearing. (lower back). No numbness, dizziness, loss of vision,hearing loss or chest pain. No difficulty breathing, weakness, headache, nausea or abdominal pain. Nolaceration, fever, vomiting, urinary problems or depression.PAST HISTORYSee nurses notes. Tetanus immunization status is up-to-date. Problems: Back Injury. Back Pain. Atrial Fibrillation. Bulging discs. Lumbar Radiculopathy. Spinal imginement. Loop recorder. Depression. Additional Surgeries: Ablation X2. Cardiac ablation. Loop recorder. Loop recorder. Medications: 2 Clinical Report - Physicians/[facility] Emergency Department [address] [place] [address] Phone #: ext- [phone] 01/17/2021 13:55 Patient: GALLITO HERNANDEZ Sex: M : 1995 Age: 26y Metoprolol Succinate ER Oral (Tablet Extended Release 24 Hour 100 mg), daily. Xarelto Oral (Tablet 20 mg), daily. Allergies: [place] (Diagnostic). Avocado (Diagnostic).SOCIAL HISTORYSmoker- current status unknown. No alcohol use or drug use. No recent travel.ADDITIONAL NOTESThe nursing notes have been reviewed with agreement regarding the chief complaint, HPI, ROS, PMH andpatient medications and allergies.PHYSICAL EXAMVital Signs: 01/17/2021 14:09 BP: 127/71. MAP: 89. HR: 85. RR: 20. O2 saturation: 97%. Temp: 98.6 F.Have been reviewed as normal and appear to be correct. Blood pressure normal. Mean arterialpressure- normal. Heart rate normal. Respiratory rate normal. Temperature normal. Oxygensaturation normal.Appearance: Alert. Oriented X3. Patient in moderate distress. Distress appears due to pain.Head: Head non-tender. No swelling of head.Eyes: Pupils equal, round and reactive to light. EOM intact.ENT: No dental injury. Pharynx normal.Neck: Painless ROM. Non-tender.CVS: Heart sounds normal. Pulses normal.Respiratory: Painless inspiration. Breath sounds normal. Chest nontender.Abdomen: No visible injury. Soft and nontender. Bowel sounds normal. No organomegaly. No mass.Back: Moderate soft-tissue and vertebral tenderness in the right lower lumbar area. ROM normal.Skin: Skin intact. Skin warm and dry. Normal skin color. Normal skin turgor.Extremities: Normal inspection. Pelvis stable. Extremities atraumatic. No lower extremity edema.Neuro: Oriented X 3. No motor deficit. No sensory deficit. Reflexes normal.LABS, X-RAYS, AND EKGNote - Tests: (CT LS spine- No fx. L5-S1 R subarticular disc protrusion with mass effect on the right S1and L 5 nerve roots.).PROGRESS AND PROCEDURESCourse of Care: 17:01 Jan [address] LS spine. 18:45 Jan 17 2021. Pt feels better after morphine in ED and ambulates without difficulty around ED nursing station, advised to f/u with ortho spine as scheduled, and f/u with PCM on [place] tomorrow. advised return precautions. Disposition: Discharged home in good and improved condition. Discharge decision based on the following: patient's co ndition is improved; patient is ambulatory; patient is 3 Clinical Report - Physicians/Mid Levels [facility] Emergency Department [address] [place] [address] Phone #: [phone]- [phone] 01/17/2021 13:55 Patient: GALLITO HERNANDEZ Sex: M : 1995 Age: 26y active; patient's pain is controlled; patient's exam is improved; moderately abnormal test results; improving condition on repeat evaluation; social support is adequate; transportation is available; follow-up is available; clinical impression is consistent with outpatient treatment.CLINICAL IMPRESSION Acute left sided lumbar radiculopathy. No sensory loss or motor deficit. Fall from stairs and on the same level by slipping.INSTRUCTIONS No strenuous activity until better. (continue prednisone and flexaril as prescibed). Warnings: SEDATIVE MEDICATION: You were given sedative medication during your visit. Do not drive or operate dangerous machinery for 12 hours. GENERAL WARNINGS: Return or contact your physician immediately if your condition worsens or changes unexpectedly, if not improving as expected, or if other problems arise. SPECIFICALLY, return if you develop weakness of the foot, arm or leg, numbness, pain or incontinence of feces (loss of bowel control) or urine (loss of bladder control). Your Current Medications: Your current home medications have been reviewed. CONTINUE TAKING THE FOLLOWING MEDICATIONS: Metoprolol Succinate ER Oral : Tablet Extended Release 24 Hour 100 mg, daily. Xarelto Oral : Tablet 20 mg, daily. Prescription Medications: Percocet 5 mg-325 mg tablet Take 1 tablet every eight hours as needed for pain for 2 days -- Dispense 6 tablet. Refills: 0. Substitution permitted. Pharmacy - [facility] [id number] ; [place] [address]. . Understanding of the discharge instructions verbalized by patient. Expected course of injury, discharge instructions, activity level, prescriptions x1, follow-up appointment and risks and benefits of treatment reviewed with patient and understanding verbalized. Agrees to plan of care. [facility] with: [facility] [place] [facility], , , [id number] [place] [address], , [place], [address] Follow up in one day even if well. Call for the next available appointment. Reason for referral: evaluation and recommend MRI LS spine and referral to ortho spine . Summary of care provided to patient via paper. 4 Clinical Report - Physicians/Mid Levels [facility] Emergency Department [address] [place] [address] Phone #: ext- [phone] 01/17/2021 13:55 Patient: GALLITO HERNANDEZ Sex: M : 1995 Age: 26y(Electronically signed by MARYAN Velasco 01/17/2021 18:46) Name Value Range Interpretation Code Description Data Sera rce(s) Supporting Document(s) ID Date Data Source [id number] 01/12/2021 11:26:00 AM EDT [facility] 1 OrderSheet [facility] Emergency Department [address] [place] [address] Phone #: [phone]- [phone] 01/12/2021 11:19 Patient: GALLITO MONTGOMERY Sex: M : 1995 Age: 26yWEIGHT:73.4 kg HEIGHT:67 inches BMI:25.4ALLERGIES: Muriel Lewis COMPLAINT: back pain, chronic back painDIAGNOSIS: Lumbar radiculopathyLAB ORDERSOrder Description Priority Entered Acknowledged InitialedDIAGNOSTIC STUDY ORDERSOrder Description Priority Entered Acknowledged InitialedSpine Lumbar STAT 11:40 01/12/2021 12:07 Shanda GonsalesComplete Giorgi Menjivar R.N.(Oxygen?(No)) ; Reason for Study: Lower Back PainMEDICATION/IV/DRIP/FLUID ORDERSOrder Description Priority Entered Acknowledged InitialedSOLU- Medrol IM 11:40 01/12/2021 Cancelled: Physician Order 12:07 Dru,125 mg Giorgi Menjivar RAnselmo ;Flexeril PO 10 mg 11:40 01/12/2021 12:07 Shanda Gonsales(NOW) Giorgi Menjivar R.N. ;Percocet PO 1 tab 11:48 01/12/2021 12:07 Shanda Gonsales(HIGH ALERT Giorgi Menjivar R.N.MEDICATION) ;Dexamethasone IM 12:08 01/12/2021 12:08 Shanda Gonsales10 mg (NOW) Shanda Gonsales R.N.; R.N. Verbal order per; Giorgi MenjivarGENERAL ORDERSOrder Description Priority Entered Acknowledged Initialed[Electronically signed by Belgica Joaquin R.N. (12:47 01/12/2021)][Electronically signed by Giorgi Menjivar (03:27 09/2020)][Electronically locked by Belgica Joaquin R.N. (12:47 01/12/2021)] Name Value Range Interpretation Code Description Data Sera rce(s) Supporting Document(s) ID Date Data Source [id number] 01/12/2021 11:26:00 AM EDT [facility] 1 Medication Reconciliation Report [facility] Emergency Department [address] [place] [address] Phone #: ext- [phone] 01/12/2021 11:19 Patient: GALLITO MONTGOMERY Sex: M : 1995 Age: 26yWeight: 73.4 kgHeight/Length: 67 in.BMI: 25.4ALLERGIES: Jaki LewisThe patient's Home Medications are listed below:STOP TAKING THE FOLLOWING MEDICATIONS: Alieve about 199901/11/2021ONTINUE TAKING THE FOLLOWING MEDICATIONS: Xarelto OralThe source(s) of the original Home Medication information:patientThe following Medications were given to the patient in the Emergency Department:Flexeril [PO] PO 10 mg, administered: 12:1Percocet [PO] PO 1 tab, administered: 12:1Dexamethasone [IM] IM 10 mg, administered: :01/12/2021The following Medications were prescribed to the patient:cyclobenzaprine 10 mg tablet Take 1 tablet three times a day for 10 days -- Dispense 30 tablet. Refills:0. Substitution permitted.Pharmacy - [facility] [address] [employer] [address] [facility] ; [place] [address]. .prednisone 10 mg tablet Take 4 tablet once a day for 10 days -- x 2 days then 3 tabs daily x 2 daysthen 2 tabs daily x 2 days then 1 tab daily x 2 days. Dispense 30 tablet. Refills: 0. Substitution permitted.Pharmacy - [facility] [employer] [address] [facility] ; [place] [address]. . 2 Medication Reconciliation Report [facility] Emergency Department [address] [place] [address] Phone #: ext- [phone] 01/12/2021 11:19 Patient: GALLITO MONTGOMERY Sex: M : 1995 Age: 26yPercocet 5 mg-325 mg tablet Take 1 tablet four times a day for 3 days -- as needed for pain. Wyjivtbp53 tablet. Refills: 0. Substitution permitted.Pharmacy - [facility] [id number] ; [place] [address]. . -- Giorgi Menjivar Name Value Range Interpretation Code Description Data Sera rce(s) Supporting Document(s) ID Date Data Source [id number] 01/12/2021 11:26:00 AM EDT [place] [address] Medication Administration Record [facility] Emergency Department [address] [place] [address] Phone #: ext- [phone] 01/12/2021 11:19 Patient: GALLITO MONTGOMERY Sex: M : 1995 Age: 26yWeight: 73.4 kgHeight/Length: 67 inBMI: 25.4ALLERGIES: Debbie Pollack Date/Time Medication Administered Medication OrderedGiven FLEXERIL [PO] (CYCLOBENZAPRINE Flexeril PO 10 mg (NOW)12:07 01/12/2021 HCL)Shanda Gonsales R.N. Dose: 10 mg Tablets POGiven PERCOCET [PO] Percocet PO 1 tab (HIGH ALERT12:07 01/12/2021 (OXYCODONE- ACETAMINOPHEN) MEDICATION)Shanda Gonsales R.N. Dose: 1 tab Tablets POGiven DEXAMETHASONE [IM] Dexamethasone IM 10 mg (NOW)12:08 01/12/2021 Dose: 10 mg Shanda Bhakta R.N. Name Value Range Interpretation Code Description Data Sera rce(s) Supporting Document(s) ID Date Data Source [id number] 01/12/2021 11:26:00 AM EDT [facility] 1 General Instructions [facility] Emergency Department [address] [place] [address] Phone #: ext- [phone] 01/12/2021 11:19 Patient: GALLITO MONTGOMERY Sex: M : 1995 Age: 26yChronic left sided lumbar radiculopathy.INSTRUCTIONSDo not work for one day.(xr did not show fracture or mal alignment. call the orthopedic today for appointment. take themedications as prescribed.).Your Current Medications: Your current home medications have been reviewed.STOP TAKING THE FOLLOWING MEDICATIONS:Alieve about 199901/11/2021*.CONTINUE TAKING THE FOLLOWING MEDICATIONS:Xarelto Oral.Prescription Medications:cyclobenzaprine 10 mg tablet Take 1 tablet three times a day for 10 days -- Dispense 30 tablet. Refills:0. Substitution permitted.Pharmacy - [facility] [address] [facility] ; [place] [address]. .prednisone 10 mg tablet Take 4 tablet once a day for 10 days -- x 2 days then 3 tabs daily x 2 daysthen 2 tabs daily x 2 days then 1 tab daily x 2 days. Dispense 30 tablet. Refills: 0. Substitution permitted.Pharmacy - [facility] [address] [facility] ; [place] [id number]. .Percocet 5 mg-325 mg tablet Take 1 tablet four times a day for 3 days -- as needed for pain. Zsinwoti16 tablet. Refills: 0. Substitution permitted.Pharmacy - [facility] [address] ; [place] [address]. .Follow-up: Follow up with your healthcare provider in three days if not better. Reason for referral: evaluation.Summary of care provided to patient via paper. Screening today revealed the patient's blood pressure indra in the hypertensive stage 2 range. The patient should follow up with a primary care provider for bloodpressure management. ADDITIONAL INFORMATION 2 General Instructions [facility] Emergency Department [address] [place] [address] Phone #: ext- [phone] 01/12/2021 11:19 Patient: ULISES GALLITO Orta Violeta RN: [id number] [id number] Sex: M : 1995 Age: 26ySciaticaSciatica is a condition that causes pain in the lower back that spreads down into the buttock, hip, andleg. Sometimes the leg pain can happen without any back pain. Sciatica happens when a spinalnerve is irritated or has pressure put on it as it comes out of the spinal canal in the lower back. Thismost often happens when a bulge or rupture of a nearby spinal disk presses on the nerve. Sciaticacan also be caused by a narrowing of the spinal canal (spinal stenosis) or spasm of the muscle in thebuttocks that the sciatic nerve passes through (piriformis muscle). Sciatica may also be called lumbarradiculopathy.Sciatica may start after a sudden twisting or bending force, such as in a car accident. Or it canhappen after a simple awkward movement. In either case, muscle spasm often also happens. Musclespasm makes the pain worse.A healthcare provider makes a diagnosis of sciatica from your symptoms and a phys ical exam.Unless you had an injury from a car accident or fall, you usually won't have X-rays taken at this time.This is because the nerves and disks in your back can't be seen on an X-ray. If the provider seessigns of a compressed nerve, you will need to schedule an MRI scan. Nerve conductions studies andelectromyography are nerve tests that can also help find the cause of nerve pain. Signs of acompressed nerve include loss of strength in a leg.Most sciatica gets better with medicine, exercise, and physical therapy. If your symptoms continueafter medical treatment, you may need surgery or injections to your lower back, depending on howsevere your symptoms are. 3 General Instructions [facility] Emergency Department [address] [place] [address] Phone #: ext- [phone] 01/12/2021 11:19 Patient: GALLITO MONTGOMERY Sex: M : 1995 Age: 26yHome careFollow these tips when caring for yourself at home: As soon as possible, start sitting up or walking. This will help you prevent problems that come from staying in bed for long periods. When in bed, try to find a position that is comfortable. A firm mattress is best. Try lying flat on your back with pillows under your knees. You can also try lying on your side with your knees bent up toward your chest and a pillow between your knees. Don't sit for long periods. This puts more stress on your lower back than standing or walking. Use heat from a hot shower, hot bath, or heating pad to help ease pain. Massage can also help. You can also try using an ice pack. You can make your own ice pack by putting ice cubes in a plastic bag. Wrap the bag in a thin towel. Try both heat and cold to see which works best. Use the method that feels best for 20 minutes several times a day. You may use acetaminophen or ibuprofen to ease pain, unless another pain medicine was prescribed. Note: If you have chronic liver or kidney disease, talk with your healthcare provider before taking these medicines. Also talk with your provider if you've had a stomach ulcer or gastrointestinal bleeding. Use safe lifting methods. Don't lift anything heavier than 15 pounds until all of the pain is gone.Follow-up careFollow up with your healthcare provider, or as advised. You may need physical therapy or more tests.If X-rays were taken, a radiologist will look at them. You will be told of any new findings that mayaffect your care.When to seek medical adviceCall your healthcare provider right away if any of these occur: Pain gets worse even after taking prescribed medicine Weakness or numbness in 1 or both legs or hips Numbness in your groin or genital area You can't control your bowel or bladder Fever (100.4 F or 38 C) Redness or swelling over your back or spine 4 General Instructions [facility] Emergency Department [address] [place] [address] Phone #: ext- [phone] 01/12/2021 11:19 Patient: GALLITO MONTGOMERY Sex: M : 1995 Age: 26y [id number] [place] [address]. All rights reserved. This information is not intended as asubstitute for professional medical care. Always follow your healthcare professional's instructions. You have been given the following additional information: Sciatica Do not work for one day.(Electronically signed by Giorgi Menjivar 01/13/2021 03:27) Name Value Range Interpretation Code Description Data Sera rce(s) Supporting Document(s) ID Date Data Source [id number] 01/12/2021 11:26:00 AM EDT [facility] 1 Clinical Report - Nurses [facility] Emergency Department [address] [place] [address] Phone #: ext- [phone] 01/12/2021 11:19 Patient: GALLITO MONTGOMERY Sex: M : 1995 Age: 26yTRIAGEArrived by private vehicle. Historian: patient. ( pt reports back pain (chronic) since october 02 2015 pt fell offa moving humve. pt was given 3 days off at that time. pt reports he recently started treatment for this in thelas month. pt reports he has had loss of bowel about a month ago. pt reports he was seen [place]. pt had an mri done and it showed bulging discs. pt reports he has a hx of a-fib so he was notgiven medications for pain.).Triage time: 11:25 01/12/2021. Acuity: LEVEL 3.This started yesterday. Onset. (sitting at rest).Treatment RADIO ENGINEER:(pt states "i hate pills, so i didn't take anything. no, my did give me some alieve or something").--11:31 01/12/21 Hui Gil R.N.11:25 01/12/21. BP: 144/82. HR: 97. RR: 18. O2 saturation: 99%. Temp: 98.5 F. Pain level now 03/21.--11:31 01/12/21 Hui Gil R.N.Chief Complaint: Location of symptoms- back. --12:46 01/12/21 Belgica Joaquin R.N.Weight: 73.4 kg. Height/Length: 67 inches. BMI: 25.4. --11:24 01/12/21 Hui Gil R.N.MedicationsAlieve about 199901/11/2021. --11:29 01/12/21 Hui Gil R.N. Xarelto Oral. --12:29 01/12/21 Monika MenjivarScmond. --11:29 01/12/21 Hui Gil R.N.[place]. --11:29 01/12/21 Hui Gil R.N.PROBLEMS:Spinal imginement.Bulging discs. --11:30 01/12/21 Hui Gil R.N.Loop recorder.Atrial Fibrillation. --11:34 01/12/21 Hui Gil R.N.Medication/allergy information source: the patient. --11:31 01/12/21 Hui Gil R.N.ADDITIONAL SURGERIES:Ablation X2.Loop recorder. --11:30 01/12/21 Hui Gil R.N. 2 Clinical Report - Nurses [facility] Emergency Department [address] [place] [address] Phone #: ext- [phone] 01/12/2021 11:19 Patient: GALLITO MONTGOMERY Sex: M : 1995 Age: 26y History PAST MEDICAL HX: Tetanus status: up-to-date. Immunizations: up-to-date. SOCIAL HX: Current every day smoker. No alcohol use or drug use. The patient was offered HIV testing but declined and hepatitis C testing but declined. The patient has not traveled outside the [place] Infectious disease exposure: No infectious disease exposure. SELF HARM ASSESSMENT: Self harm assessment was performed. The patient answered "no" to the question(s) "Have you recently felt down, depressed, or hopeless?", "Do you have thoughts of harming or killing yourself?", "Do you have a plan for harming or killing yourself?", "Have you recently had thoughts about harming or killing others?", "Do you have any dangerous items in your possession?", "Have you noticed less interest or pleasure in doing things?", "Are you here because you tried to hurt yourself?" and "Have you ever tried to hurt yourself before today?". ABUSE ASSESSMENT: Abuse assessment. No suspicion of abuse. No report of abuse. NUTRITIONAL RISK ASSESSMENT: The nutritional risk assessment revealed no deficiencies. FUNCTIONAL ASSESSMENT: Functional assessment: no impairments noted. LEARNING NEEDS ASSESSMENT: The learning needs assessment revealed no barriers. FALL RISK ASSESSMENT: Fall risk assessment completed per protocol. SKIN INTEGRITY ASSESSMENT: Skin integrity risk assessment completed. No skin integrity risk identified. --11:31 01/12/21 Hui Gil R.N.PHYSICAL ASSESSMENTGENERAL / NEURO / PSYCH: Oriented X 4. Alert. Appears in no acute distress.EXTREMITIES: Normal gait. ( pt ambulatory to room. pt has not had recent loss of bowel or bladder sinceincident 4 weeks ago when seen in [facility] ED and MRI done per patient. pt reports pain to be "more thanexcrutiating").SKIN: Skin is warm and dry. --11:32 01/12/21 Hui Gil R.N.NURSING PROGRESS NOTESThe plan of care for this patient has been created. Patient gowned. Reassurance given. Call lightplaced in reach. Bed placed in lowest position. Brakes of bed on. Patient ready for evaluation. --11: Hui Gil R.N. 12:01/12/2021 Flexeril (Cyclobenzaprine HCl) PO Tablets 10 mg given. Allergies verified and confirmed 5 rights. Information reviewed with patient including reason for taking this medication, signs of allergic reaction, precautions and sedative warning. Verbalizes understanding. --12:01/12/21 Shanda Gonsales R.N. 12:01/12/2021 Percocet (oxyCODONE-Acetaminophen) PO Tablets 1 tab given. Allergies verified and 3 Clinical Report - Nurses [facility] Emergency Department [address] [place] [address] Phone #: ext- [phone] 01/12/2021 11:19 Patient: GALLITO MONTGOMERY Sex: M : 1995 Age: 26y confirmed 5 rights. Information reviewed with patient including reason for taking this medication, signs of allergic reaction, precautions and sedative warning. Verbalizes understanding. --12:07 01/12/21 Shanda Gonsales R.N. 12:08 01/12/2021 Dexamethasone IM 10 mg given. Given in the left deltoid. Allergies verified and confirmed 5 rights. Information reviewed with patient including reason for taking this medication, signs of allergic reaction and precautions. Verbalizes understanding. --12:08 01/12/21 Shanda Gonsales R.N. Patient transported to radiology by wheelchair with predictive maintenance technician. --12:09 01/12/21 Shanda Gonsales R.N.DISPOSITION / DISCHARGE Condition at departure: improved and stable. No learning barriers present. Discharge instructions provided and reviewed with the patient. Reviewed medication(s) side effects, precautions, dosing and course information. Prescription(s) sent electronically to pharmacy. Work note given. Patient verbalized understanding. Written instructions provided in Nauruan. The patient was discharged by the physician. He was discharged home and accompanied by spouse. He left ambulatory and via private vehicle. Spouse driving. --12:46 01/12/21 Belgica Joaquin R.N. 12:44 01/12/21. BP: 134/90. HR: 90. RR: 18. O2 saturation: 99%. Temp: 97.9 F. Pain level now 7/10. --12:46 01/12/21 Belgica Joaquin R.N.Locked/Released at 01/12/2021 12:47 by Belgica Joaquin R.N. Name Value Range Interpretation Code Description Data Sera rce(s) Supporting Document(s) ID Date Data Source [id number] 01/12/2021 11:26:00 AM EDT [facility] 1 Clinical Report - Physicians/Mid Levels [facility] Emergency Department [address] [place] [address] Phone #: ext- [phone] 01/12/2021 11:19 Patient: GALLITO MONTGOMERY Sex: M : 1995 Age: 26y Time Seen: 11:24 01/12/2021; initial patient contact, initial documentation. Arrived- By private vehicle. Historian- patient. Disposition decision: 12:36 01/12/2021.HISTORY OF PRESENT ILLNESS Chief Complaint: BACK PAIN and CHRONIC BACK PAIN. Onset- since september 2015 and it is still present and worsening. (persistent). It was gradual in onset and has been constant. It is described as being severe and in the area of the lower lumbar sp ine and radiating to the left hip and thigh. The quality is noted to be sharp and aching. Modifying factors- worsened by sitting, standing or walking. Not relieved by anything. No bladder dysfunction, bowel dysfunction, sensory loss or motor loss. Additional history - Patient had back pain since September 2015 when he had injury. the pain has gotten worse since last month. he lost control of his bowel 1 moth ago was seen at [facility] and had an MRI which showed building disc with nerve impingement. he has been taking Tylenol only for pain as he is on xarelto for atrial fibrillation. he is due for his physical training. Patient states that he has pain on sitting or walking and pain has been unbearable.REVIEW OF SYSTEMSNo fever, chills, eye irritation, difficulty with urination or urinary frequency. No hematuria, skin rash,headache, depression or sore throat. No cough, difficulty breathing, chest pain, abdominal pain ornausea. No vomiting, diarrhea, black stools or bloody stools. All other systems reviewed and arenegative.PAST HISTORYSee nurses notes. Has had back injury. He has had prior back pain. Problems: Loop recorder. Atrial Fibrillation. Spinal imginement. Bulging discs. Additional Surgeries: Ablation X2. Loop recorder. Medications: Xarelto Oral. Alieve about 199901/11/2021. Allergies: [place]. [place]. 2 Clinical Report - Physicians/Mid Levels [facility] Emergency Department [address] [place] [address] Phone #: ext- [phone] 01/12/2021 11:19 Patient: [id number] Sex: M : 1995 Age: 26ySOCIAL HISTORYFormer smoker. No alcohol use or drug use.ADDITIONAL NOTESThe nursing notes have been reviewed.PHYSICAL EXAMVital Signs: 01/12/2021 11:25 BP: 144/82. MAP: 102. HR: 97. RR: 18. O2 saturation: 99%. Temp: 98.5 F.Have been reviewed. Oxygen saturation normal.Appearance: Alert. No acute distress.Neck: Normal inspection. Neck nontender. Painless ROM.CVS: Heart sounds normal. Pulses normal.Respiratory: No respiratory distress. Painless inspiration. Breath sounds normal.Abdomen: No visible injury. Soft and nontender. Bowel sounds normal. No organomegaly. No mass.Femoral pulses equal.Back: Normal inspection. Moderate vertebral point tenderness over the lower lumbar spine. Moderatesoft tissue tenderness in the left lower lumbar area.Skin: Skin warm and dry. Normal skin color. No rash. Normal skin turgor.Extremities: Extremities exhibit normal ROM. Extremities nontender.Neuro: Oriented X 3. Mood/affect normal. No motor deficit. No sensory deficit. Straight leg raising:negative on the right and positive on the left at 45 degrees. Reflexes normal.LABS, X-RAYS, AND EKGLS- Spine X-rays: (Ayaka giron Scott - 01/12/2021 12:33:20 PMLUMBOSACRAL SPINE 5 VIEWS. INDICATION: Low back pain COMPARISON: [None.] FINDINGS: [The vertebral bodies are normal height. No fracture or destructive bone lesion.] Standard 5 level lumbar anatomy. [No spondylolysis or spondylolisthesis.] [The disk spaces are well preserved. No significant degenerative changes.] SI joints are intact. IMPRESSION: [Negative study.]). The X-rays were interpreted by the radiologist. Prior films were not available for comparison.PROGRESS AND PROCEDURESCourse of Care: 12:35 01/12/21. Patient given steroids, Percocet and flexeril and feels better. XR did notshow fracture or spondylosis. Patient feels better . advised follow up with orthopedics. he already has 3 Clinical Report - Physicians/Mid Levels [facility] Emergency Department [address] [place] [address] Phone #: ext- [phone] 01/12/2021 11:19 Patient: GALLITO MONTGOMERY [id number] Sex: M : 1995 Age: 26y a referral. Patient counseled in person regarding the patient's stable condition, test results, diagnosis and need for follow-up. Patient agrees with plan of care. 12:36. Disposition: Discharged home in good and improved condition (12:36). Condition: good and stable. Discharge decision based on the following: patient's condition is stable; patient's exam is stable; no abnormal test results; improving condition on repeat evaluation; social support is adequate; transportation is available; follow-up is available.CLINICAL IMPRESSION Chronic left sided lumbar radiculopathy.INSTRUCTIONS Do not work for one day. (xr did not show fracture or mal alignment. call the orthopedic today for appointment. take the medications as prescribed.). Your Current Medications: Your current malissa e medications have been reviewed. STOP TAKING THE FOLLOWING MEDICATIONS: Alieve about 199901/11/2021*. CONTINUE TAKING THE FOLLOWING MEDICATIONS: Xarelto Oral. Prescription Medications: cyclobenzaprine 10 mg tablet Take 1 tablet three times a day for 10 days -- Dispense 30 tablet. Refills: 0. Substitution permitted. Pharmacy - [facility] [employer] [id number] [facility] ; [place] [address]. . prednisone 10 mg tablet Take 4 tablet once a day for 10 days -- x 2 days then 3 tabs daily x 2 days then 2 tabs daily x 2 days then 1 tab daily x 2 days. Dispense 30 tablet. Refills: 0. Substitution permitted. Pharmacy - [facility] [employer] - [id number] [facility] ; [place] [address]. . Percocet 5 mg-325 mg tablet Take 1 tablet four times a day for 3 days -- as needed for pain. Dispense 12 tablet. Refills: 0. Substitution permitted. Pharmacy - [facility] [id number] ; [place] [id number]. Phone: . 4 Clinical Report - Physicians/Mid Levels [facility] Emergency Department [address] [place] [address] Phone #: ext- [phone] 01/12/2021 11:19 Patient: GALLITO MONTGOMERY Sex: M : 1995 Age: 26y Follow-up: Follow up with your healthcare provider in three days if not better. Reason for referral: evaluation. Summary of care provided to patient via paper. Screening today revealed the patient's blood pressure to be in the hypertensive stage 2 range. The patient should follow up with a primary care provider for blood pressure management.(Electronically signed by Giorgi Menjivar 01/13/2021 03:27) Name Value Range Interpretation Code Description Data Sera rce(s) Supporting Document(s) ID Date Data Source [id number] 01/12/2021 02:58:00 [place] [address] PHONE: [phone] FAX: [phone] Name .................. : ULISES ZENDEJAS Acct Number.................. : [id number] ROOM. ................. : VT- MR Number ................... : [id number] Stay type ............. : E/R Discharge Date......... ... : Admit Date ......... : 08/30 Admit Phys .................... : RETACO Date of ....... : 1995 Family Phys ................... : UNKNOWN CO Phone .................. : /[phone] Age ................................ : 26 Film# .................. .:[id number] Sex ................................. : M Unsigned transcriptions are preliminary reports and do not represent a medical or legal document SPINE LS COMPLETE [id number] COMPLETE:01/12/21 11:40 [id number] Reason(s): Lower Back Pain LUMBOSACRAL SPINE 5 VIEWS. INDICATION: Low back pain COMPARISON: None. FINDINGS: The vertebral bodies are normal height. No fracture or destructive bone lesion. Standard 5 level lumbar anatomy. No spondylolysis or spondylolisthesis. The disk spaces are well preserved. No significant degenerative changes. SI joints are intact. IMPRESSION: Negative study. Electronically Reviewed and Signed By Dangelo Marley MD , 01/12/21 14:58, SCB Transcribe Initials: NATASHA, Transcribe Date: 01/12/21 12:38, Dictation Date: Copy for: EMERGENCY DEPT via modem Copy for: 710 MED REC DISCHARGED Page 1 of 1 Name Value Range Interpretation Code Description Data Sera rce(s) Supporting Document(s) ID Date Data Source [id number] 12/10/2020 12:16:59 PM EDT [facility] INFORMATIONPatient MRN Name Date of Age Gend*PT [id number] Gallito Hinojosa 1995 25 years M ---PT Location Admission Date/Time Visit ID Attending Provider --- --- --- --- EPI ID CSN Admitting Pro vider [id number] ---Cardiology Office VisitSubjectiveChief Complaint: Status post atrial fibrillation ablationHPI:This patient is a 25 years male with a past history stated below1. Paroxysmal atrial fibrillation status post cryoablation March 20, 2020 andagain 11/19/2020.2. Tobacco useWho presents to the office today for follow-up. Patient recently underwentsecond atrial fibrillation ablation 11/19/2020. Procedure presumably wassuccessful. By EKG and auscultation he remains in normal sinus rhythm. He isscheduled for Holter monitor placement next month as well as follow-up with the fall. Blood pressure within normal limits. Patient states within aweek of having procedure completed he went [facility] due tonausea, vomiting, and diarrhea. He continues to experience some intermittentnausea and diarrhea. He also mentions that he has difficulty swallowing withcertain foods. Denies any shortness of breath or palpitations. Denies anychest pain. His blood pressure was elevated during his hospital stay but isback to being within normal limits.Review of SystemsThis patient denies otherwise, weight loss or weight gain, fevers, chills,sweats, change in urine or change in bowel habits, breast, lung, liver or kidneydisease. She denies hematologic, neurologic, dermatologic, pulmonary,psychiatric, orthopedic, endocrine, hematologic, gastroenterologic, infectious,oncologic, gynecologic or gender specific diseases.Past HistoryPast Medical History:Diagnosis Date Anxiety Cardiac murmur Chronic lower back pain Depression GERD (gastroesophageal reflux disease) Paroxysmal atrial fibrillation Simone. Antecol PUD (peptic ulcer disease) Syncope most recent 05/2019Past Surgical History:Procedure Laterality Date ECHOCARDIOGRAM TRANSESOPHAGEAL N/A 03/20/2020 Procedure: ECHO TRANSESOPHAGEAL; Surgeon: Ward Durán MD; Laterality:N/A; ECHOCARDIOGRAM TRANSESOPHAGEAL N/A 11/19/2020 Procedure: ECHO TRANSESOPHAGEAL; Surgeon: Ward Durán MD; Laterality:N/A; EP STUDY N/A 03/20/2020 Procedure: ABLATION A-FIB; Surgeon: Ward Durán MD; Laterality: N/A;TRANSEPTAL EP STUDY N/A 11/19/2020 Procedure: ABLATION A-FIB; Surgeon: Ward Durán MD; Laterality: N/A;TRANSEPTAL IMPLANT/EXPLANT LOOP RECORDER 08/2020 WISDOM TOOTH EXTRACTION localFamily HistoryProblem Relation Age of Onset Healthy, No Significant History Mother Healthy, No Significant History Father Malig Hyperthermia Neg HxSocial HistorySocioeconomic History Marital status: Spouse name: Not on file Number of children: Not on file Years of education: Not on file Highest education level: Not on fileOccupational History Not on fileTobacco Use Smoking status: Current Every Day Smoker Packs/day: 1.00 Years: 5.00 Pack years: 5.00 Types: Cigarettes Smokeless tobacco: Never UsedVaping Use Vaping Use: Never usedSubstance and Sexual Activity Alcohol use: Not Currently Comment: heavy drinking x 3 years - stopped 10/04/2020 Drug use: Never Sexual activity: Not on fileOther Topics Concern Bike Helmet Not Asked History of Falls Not Asked Self-Exams Not Asked Caffeine Concern Not Asked Hobby Hazards Not Asked Sleep Concern Not Asked Daily Calcium Supplement Not Asked Lead Exposure Not Asked Special Diet Not Asked Daily Vitamin D Supplement Not Asked Service Not Asked Stress Concern Not Asked Domestic Violence in home Not Asked Radon exposure Not Asked Weight Concern Not Asked Exercise Not Asked Seat Belt Not Asked Well water Not Asked Firearms in home Not AskedSocial History Narrative Not on fileSocial Determinants of HealthFinancial Resource Strain: Difficulty of Paying Living Expenses:Food Insecurity: Worried About Running Out of Food in the Last Year: Ran Out of Food in the Last Year:Transportation Needs: Lack of Transportation (Medical): Lack of Transportation (Non-Medical):Physical Activity: Days of Exercise per Week: Minutes of Exercise per Session:Stress: Feeling of Stress :Social Connections: Frequency of Communication with Friends and Family: Frequency of Social Gatherings with Friends and Family: Attends Buddhism Services: Active Member of Clubs or Organizations: Attends Club or Organization Meetings: Marital Status:Intimate Partner Violence: Fear of Current or Ex-Partner: Emotionally Abused: Physically Abused: Sexually Abused:Medications and AllergiesAllergiesAllergen Reactions [place] Meal Anaphylaxis Avocado AnaphylaxisCurrent Outpatient MedicationsMedication Sig Dispense Refill loperamide (IMODIUM) 2 MG capsule Take 2 mg by mouth 4 (four) times a day as needed metoprolol tartrate (LOPRESSOR) 25 MG tablet Take 100 mg by mouth daily 1 1/2qd Omeprazole 20 MG TBEC Take 20 mg by mouth daily as needed (for heartburn) ondansetron (ZOFRAN-ODT) 4 MG disintegrating tablet Take 4 mg by mouth every 8(eight) hours as needed rivaroxaban (Xarelto) 20 MG TABS Take 1 tablet (20 mg total) by mouth daily Tostart after procedure --discharge nurse to inform when to start. 90 tablet 3 sertraline (ZOLOFT) 50 MG tablet Take 100 mg by mouth dailyNo current facility-administered medications for this visit.PhysicalBP 112/70 (BP Location: Right upper arm) | Pulse 88 | Temp 97.1 F | Resp 18| Wt 74.8 kg (165 lb) | SpO2 98% | BMI 25.84 kg/m Physical Exam:Neck: Trachea is midline, there is no JVD, there are no bruits.Cardiac: S1, S2, physiologically split. Rhythm is regular. There is no S3. Thereis no S4. PMI is in the fourth LICS AAL. There were no lifts, heaves, rubs orthrills.Lungs: Are clear to auscultation and percussion without rhonchi, rubs rales orwheezes. Diaphragmatic excursion is normal. Inspiratory and expiratory durationsare normal.Extremities: Are without erythema, cyanosis, clubbing or edema.Neurologic/psychiatric: Cranial nerves, strength, sensory, reflexes, cerebellum,orientation, mood and affect are unremarkable. A very cursory psychiatricexamination exhibits no obvious psychiatric issues.Skin: Is warm and dry. There are no definitive areas of cellulitis or unusualskin findings.DiagnosticsLab:Office Visit on 11/16/2020omponent Date Value Ref Range Status WBC 11/16/2020 3.7* 4.10 - 11.00 10*3/uL Final RBC 11/16/2020 4.93 4.60 - 6.10 10*6/uL Final Hemoglobin 11/16/2020 15.3 13.5 - 18.0 g/dL Final Hematocrit 11/16/2020 45.9 41.00 - 53.00 % Final MCV 11/16/2020 93.3 80.0 - 95.0 fL Final MCH 11/16/2020 31.0 27.0 - 32.0 pg Final MCHC 11/16/2020 33.2 32 - 36 g/dL Final RDW 11/16/2020 13.7 10.5 - 14.5 % Final Platelets 11/16/2020 149* 150 - 450 10*3/uL Final MPV 11/16/2020 11.0* 7.1 - 10.7 fL Final Specimen Expiration Date 11/16/2020 11/20/2020 Final Patient ABO/Rh 11/16/2020 O POSITIVE Final Antibody Screen 11/16/2020 NEGATIVE Final Testing site 11/16/2020 PERFORMED AT [address] [place] [address] Blood bank comment 11/16/2020 SEE NOTES Final Sodium 11/16/2020 140 136 - 145 mmol/L Final Potassium 11/16/2020 4.3 3.6 - 5.2 mmol/L Final Chloride 11/16/2020 104 100 - 108 mmol/L Final CO2 11/16/2020 32* 22 - 31 mmol/L Final Anion Gap 11/16/2020 4* 7 - 16 mmol/L Final Urea nitrogen 11/16/2020 14 7 - 24 mg/dL Final Creatinine 11/16/2020 1.01 0.80 - 1.30 mg/dL Final BUN/Creatinine Ratio 11/16/2020 13.9 10.0 - 20.0 RATIO Final GLUCOSE 11/16/2020 89 70 - 99 mg/dL Final Calcium 11/16/2020 9.3 8.4 - 10.2 mg/dL Final GFR MDRD Non Af Amer 11/16/2020 >60 >59 ml/min/1.73m2 Final GFR MDRD Af Amer 11/16/2020 >60 >59 ml/min/1.73m2 Final Glom Filt Rate, Est 11/16/2020 SEE NOTES FinalImaging/Testing: N/AEKG: Normal sinus rhythmAssessment & PlanPatient Active Problem ListDiagnosis Paroxysmal atrial fibrillation Atrial fibrillation1. Paroxysmal atrial fibrillation; patient status post second ablation. He hashealed up well from procedure. This presumably was successful. Patientcurrently maintaining normal sinus rhythm. [facility] Patient will call the office if he has any new or worseningsymptoms. He has had overall improvement in GI symptoms. I did en courage himto continue brat diet and increased fiber. Also encouraged follow-up withgeneral practitioner. Told him I would CC Dr Hopper regarding hospital visits. Heis scheduled for Holter monitor placement next month and follow-up with EP inthe fall.2. Tobacco use; we have discussed the importance of smoking cessation.Signature: RYAN Bakerate: December 10, 2020Time: 12:16 PM Name Value Range Interpretation Code Description Data Sera rce(s) Supporting Document(s) ID Date Data Source [id number] 11/30/2020 11:12:00 AM EDT [facility] ([facility] Name Value Range Interpretation Code Description Data Sera rce(s) Supporting Document(s) Albumin [Mass/volume] in Serum or Plasma 4.0 [facility] ([facility]) Alanine aminotransferase [Enzymatic activity/volume] in Serum or Pl asma 32 [facility] ([facility]) Calcium [Mass/volume] in Serum or Plasma 9.5 [facility] ([facility]) Alkaline phosphatase [Enzymatic activity/volume] in Serum or Plasma 7 4 [facility] ([facility]) Carbon dioxide, total [Moles/volume] in Serum or Plasma 30 [facility] ([facility]) Chloride [Moles/volume] in Serum or Plasma 104 [facility] ([facility]) Potassium [Moles/volume] in Serum or Plasma 4.1 [facility] ([facility]) Protein [Mass/volume] in Serum or Plasma 7.6 [facility] ([facility]) Sodium 137 [facility] Aspartate aminotransferase [Enzymatic activity/volume] in Serum or Plasma 19 [facility] ([facility]) Urea nitrogen [Mass/volume] in Serum or Plasma 11 [facility] ([facility]) Creatinine For GFR 1.06 [facility] ([facility]) Glucose 77 70-100 [facility] ID Date Data Source [id number] 11/30/2020 11:12:00 AM EDT [facility]) Name Value Range Interpretation Code Description Data Sera rce(s) Supporting Document(s) Red Blood Count 5.28 4.70-6.20 [facility]) White Blood Count 5.3 4.3-10.9 [facility] ([facility]) Platelets 153 130-400 [facility] Hemoglobin 16.0 13.0-17.0 [facility] ([facility]) Hematocrit 47.7 39.0-50.0 [facility] ([facility]) ID Date Data Source [id number] 11/21/2020 11:09:00 AM EDT [facility]) Name Value Range Interpretation Code Description Data Sera rce(s) Supporting Document(s) Magnesium Level 2.1 [facility] ([facility]) Troponin 1.48 [facility] ID Date Data Source [id number] 11/21/2020 11:09:00 AM EDT [facility] Name Value Range Interpretation Code Description Data Sera rce(s) Supporting Document(s) Sodium 140 [facility] Calcium [Mass/volume] in Serum or Plasma 9.1 [facility] ([facility]) Carbon dioxide, total [Moles/volume] in Serum or Plasma 26 [facility] ([facility]) Chloride [Moles/volume] in Serum or Plasma 107 [facility]) Glucose 76 70-100 [facility] Potassium [Moles/volume] in Serum or Plasma 4.1 [facility] ([facility]) Blood Urea Nitrogen 12 5-21 [facility] ([facility]) Glomerular filtration rate/1.73 sq M.pre dicted [Volume Rate/Area] in Serum or Plasma by Creatinine-based formula (MDRD) Laboratory test result [facility] Creatinine 0.93 0.6-1.5 [facility] ID Date Data Source [id number] 11/20/2020 07:17:20 AM EDT [facility] Name Value Range Interpretation Code Description Data Sera rce(s) Supporting Document(s) &PDF [facility] [id number] [file] AgICAgICAgICAgICAgICAgICAgICAgICAgICAgICAgICAgICAgICAgICAgICAgICAgDQogICAgICAgIC AgICAgICAgICAgICAgICAgICAgICAgICAgICAgICAg ICAgICAgICAgICAgICAgICAgICAgICAgICAgICAgICAgICAgICAgICAgICAgICAgICAgICAgICAgICAg DQogICAgICAgICAgICAgICAgICAgICAgICAgICAgICAgICAgICAgICAgICAgICAgICAgICAgICAgICAg ICAgICAgICAgICAgICAgICAgICAgICAgICAgICAgIC AgICAgICAgICAgDQogICAgICAgICAgICAgICAgICAgICAgICAgICAgICAgICAgICAgICAgICAgICAgIC AgICAgICAgICAgICAgICAgICAgICAgICAgICAgICAgICAgICAgICAgICAgICAgICAgICAgDQogICAgIC AgICAgICAgICAgICAgICAgICAgICAgICAgICAgICAg ICAgICAgICAgICAgICAgICAgICAgICAgICAgICAgICAgICAgICAgICAgICAgICAgICAgICAgICAgICAg ICAgDQogICAgICAgICAgICAgICAgICAgICAgICAgICAgICAgICAgICAgICAgICAgICAgICAgICAgICAg ICAgICAgICAgICAgICAgICAgICAgICAgICAgICAgIC AgICAgICAgICAgICAgDQogICAgICAgICAgICAgICAgICAgICAgICAgICAgICAgICAgICAgICAgICAgIC AgICAgICAgICAgICAgICAgICAgICAgICAgICAgICAgICAgICAgICAgICAgICAgICAgICAgICAgDQogIC AgICAgICAgICAgICAgICAgICAgICAgICAgICAgICAg ICAgICAgICAgICAgICAgICAgICAgICAgICAgICAgICAgICAgICAgICAgICAgICAgICAgICAgICAgICAg ICAgICAgDQogICAgICAgICAgICAgICAgICAgICAgICAgICAgICAgICAgICAgICAgICAgICAgICAgICAg ICAgICAgICAgICAgICAgICAgICAgICAgICAgICAgIC AgICAgICAgICAgICAgICAgDQogICAgICAgICAgICAgICAgICAgICAgICAgICAgICAgICAgICAgICAgIC AgICAgICAgICAgICAgICAgICAgICAgICAgICAgICAgICAgICAgICAgICAgICAgICAgICAgICAgICAgDQ v7I3jcNWXuGQWtZG7jMJx3Dl7+OWjPLbLjJVE4qrKn xP7MKS6ah5ChOXedAQZks2NaISx8WV2NCYEqHLmmHY7XIUftct1OETWnXTHfhFTWe4fxPrHzPRZ2CLMs DxxkDI5HZOHzB4adpsQuXXMwHGESSKnoLUFPRZqiOCNLLQCyPARbCkMmYHpjGL6Fy0ObiJK5YWj+Pg0K SR0vb4IiJDmrBfJuOE4lax5BVZmGIjKmQ9IruoZ6XG YaKHGrKv9FZOVrSFOfnIZnTxHcRDFNNyTyA4GioW17YHFYCg0+RLfomtIpAlmDBtDyBLDwx4TeDDi3MV 2BHXVcKRc4mRBlMP3luUCsbXKiORhcLE3XHMF2NKkbOTGdKINOUR0BWHhgNFI0RdbcfzDgoYFaUTjvHJ 9QYXJlbnQgMjIgMCBSDQo+Iq7DBK7mt1IjHEfqURBb QZ5hjq7BYKsVEtYnL6O1zBUtD2G5LKvuQc7OQROvGIMqNcOzSAEULYeoSK5LPZ1rcdG4QH9KdTCdUXOb LHFcvTQnCZt0P19pnIMlOQsoLN7NEDU+Doroteo+Xu1VWOMuGRToPANxLqDvYXWLGqKnY8FmX2TXn1MxE1Wt HV10lZtnyxWmANjmSZ5TTQ0dQDKsUQUAFM6VzOSdhS 3nkmZvEpIwCRGAAuXvO77nzZShRRCcGKMjHTQaYf6UFEFuO2UwocLkfPqoktXeZFGuUMTGLJ2ZEVkrxh MioQUmgVnwYI55hYvqRQ0JDu4KOpGaSH0kkr6WdCLpRt9HKXIiFC2FBGFoYFTtJXJtXQR8HPSxEbPvZE kqOUEeBIPoJNO1TEIzBNNbIU1KJuLoAMWlZRe4PDNy RMNlKTNtzh2LIATkIPAxRBCqVVErFQUuRMJbSAkoDUAkUHDuQGy9LZOcHJCsUB5OMnMaTOXuOUUqXYHo XRVpIVLtuz3VYQSyFNFjPfUmXgKeZDPdJHYqYSaaNUVfQMS6OlI6HTOoCGDcBE8QXsSqLGTbCMY3SYkz MPJwMXKeiv1LAZGlSQQtZNEwHyZvZYOeWWXaNEclGL JySKE9UmZ9TWMzORYpZH0AVhYpZIFwXSUlSZBrHEGsTVHksw1MNEZjMEMvFVI8TKXzKEFvDSKhMVbaHF KxOWPfTEB8GVRmOCAdOJ6GJaUqSMClZEK8ULTwZPWuFEIsmi4XOCQqWDPhOSx2ALMhELSgRJOtISxsCD PwNJGwPFF6VUHqEFOwDY1NTrCbIJGaUPPqUfZyVNHh SANtwy3RKBLdEARwPiQ2UCHiCGEtAQSgEIijMEKlUWR2YOOnEBUoKZNoMF7WDgYbXZHuWZp4PmCgGARw AMBzed2EHOUaCFJoYUY5QWDkRQXbFDQtFLoiBYDxMJPoGpUuXWYdCKIdAP4NVoCjOVGtXmE5OXMzTUWx CKRzfc4FNSBuQHHuYAvcTlEzLIPrFLBgMEn3phStdL BcCRb1SM2GU1DojcFlMhQJXt5Rf965NDN5HUXxSl8CL1gjJk9lJMAkLUWSFb5ACZa4SPQgWsmaRmY5ER WlDEKvLEz4WpHmMDG6MKQ6ZiV9RLZ+VJutGUY3O0AbKZf9RwZ4LHErVXhwIuS8IGx7SSQhJyX3SW1yYN ANCj4+LNmkqAHdhWrlPXTNSjRpFVC8XLaiCWKCKc3Q ID Date Data Source [id number] 11/19/2020 11:45:51 AM EDT [facility] NT INFORMATIONPatient MRN Name Date of Age Gend*PT [id number] Gallito Hinojosa 1995 25 years M [facility] Location Admission Date/Time Visit ID Attending Provider --- --- --- --- EPI ID CSN Admitting Pro vider [id number] ---Arterial Line PlacementPatient location during procedure: ORIndications for arterial line: hemodynamic monitoringStaffingPerformed by: Mathew Stewart CRNAApproved by: João Delacruz DOCompleted: patient identified, risks and benefits discussed, surgical consentobtained, anesthesia consent obtained, monitors and equipment checked, pre-opevaluation completed, timeout performed, patient was prepped and draped in usualsterile fashion,Arterial Line InsertionSite prep: chlorhexidineAnesthesia: noneLaterality: leftLocation: radial arteryNeedle gauge: 20 GTechnique: Seldinger technique used and ultrasound guidedNumber of attempts: 1AssessmentSutured: noDressing: dressing appliedPatient tolerance: tolerated well Name Value Range Interpretation Code Description Data Sera rce(s) Supporting Document(s) ID Date Data Source [id number] 11/19/2020 11:45:21 AM EDT [facility] NT INFORMATIONPatient MRN Name Date of Age Gend*PT [id number] Gallito Hinojosa 1995 25 years M [facility] Location Admission Date/Time Visit ID Attending Provider --- --- --- --- EPI ID CSN Admitting Pro vider [id number] ---AirwayPatient location during procedure: ORUrgency: electiveDifficult airway: noAdvanced airway equipment used: noStaffingPerformed by: Mathew Stewart CRNAAnesthesiologist: João Delacruz, DOIndications and Patient ConditionIndications for airway management: anesthesiaPreoxygenated: yesPatient position: supineIn-line stabilization: noMask ventilation: 1 - vent by maskFinal Airway/ApproachesFinal airway type: ETTNumber of attempts at final approach: 1Number of other approaches attempted: 0Final Airway DetailsFinal ETT airway: E TT - singleCuffed: yesTechnique used for successful ETT placement: direct laryngoscopyCricoid pressure: yesRSI: noInsertion site: oralBlade type/size: MAC 3.5ETT size: 7.5 mmMeasured from: lipsETT to lips: 23 cmPlacement verified by: chest auscultation and + UAWA9Mcdwolzuankc: CTA and equal breath sounds bilateralGrade view: grade IIa - partial view of glottis Name Value Range Interpretation Code Description Data Sera rce(s) Supporting Document(s) ID Date Data Source [id number] 11/19/2020 10:48:37 AM EDT [facility]FORMATIONPatient MRN Name Date of Age Gend*PT [id number] Gallito Hinojosa 1995 25 years M [facility] Location Admission Date/Time Visit ID Attending ProviderCV-11 11/19/20 1035 --- Ward Durán MD([id number]) EPI ID CSN Admitting Provider [id number] Ward Durán MD([id number])H&P reviewed. The patient was examined and there are no changes to the H&P.Ward Durán MD10:48 AM Name Value Range Interpretation Code Description Data Sera rce(s) Supporting Document(s) ID Date Data Source [id number] 11/16/2020 10:08:39 AM EDT [facility] Name Value Range Interpretation Code Description Data Sera rce(s) Supporting Document(s) EKG [facility] OFUKTy6bAoJYDbZbp9QtVnByJOSrPM5yhld8X5K5lNDqN2EgcIEdn8bjQ6HeU7UmVFSfOSUMIV3NeGQj jb2 [file] OTggMDAwMDAgbiAKMDAwMDAwMDQwOSAwMDAwMCBuIA rjYBJcTWHuAIKxVAYvKARbQV4eIcYbVXOoLUK3VBCtERNsYDTnixRRMSCkLDBiBWt1DTNnFNZtNFBgZP avKXYuMINgHYI3KHYjODQbWB2ePfFfGGNzZBV2UkEpBXEbNJZxcyJNKVUwFTBpXJQ9VzUqGFRsLOTfOX ipQWBpZBXuBGyaYQSmKPMxKY7jYaTbSTIcQBAvLWcn ZBUyEBGrfxLVONMiXTAfJKKcLzEyVVBlSRQfRXunJRGkRHYfMoG6EAApQXTdAB4jHeTuZEUsVEC2YLjy NZIeBDAiufSCUINoYZOjMJdtSWJsGOBpWNXjVBdfJRMiCUBxUIN6MQRnBAHeQQ0kPoLeZKFtMNDcBFQm RjW3UhZwXyKRuRAgfDymedv5HXtpX4m0CJGeQVrqWS 1vnbDjXMMfGlzxUl1srHV9LNSoCyhWOo7Ga9UgnnW2ueMdEmKoAkFlPnFvOJ9P ID Date Data Source [id number] 11/16/2020 09:13:47 AM EDT [facility] INFORMATIONPatient MRN Name Date of Age Gend*PT [id number] Chandler Camargo Gallito Orta 1995 25 years M [facility] Location Admission Date/Time Visit ID Attending Provider --- --- --- Violeta Ortega([id number]) EPI ID CSN Admitting Provider [id number] ---OUTPATIENT / OBSERVATIONAL SURGICAL OR INVASIVE PROCEDUREName: Gallito Camargo : 1995 Sex: male [facility]Attending Phys[facility]: Dr. HopperHISTORY OF PRESENT ILLNESS: Mr Camargo is a 25 years old -[place]occan malewith history of depression, anxiety, GERD, and chronic lower back pain hereports of 3.5 years history of Paroxysmal atrial fibrillation. He underwentcryoablation on 03/20/2020. Unfortunately he now has recurrence symptomaticParoxysmal atrial fibrillation. He complains of chest tightness, shortness ofbreath, lightheadedness, heart palpitation, dizziness, and fatigue. Patient wasevaluated by Dr. Hopper. He is now scheduled to undergo A. fib ablation.PAST MEDICAL HISTORY:Past Medical History:Diagnosis Date Anxiety Cardiac murmur Chronic lower back pain Depression GERD (gastroesophageal reflux disease) Paroxysmal atrial fibrillation Simone. Antecol PUD (peptic ulcer disease) Syncope most recent 05/2019PAST SURGICAL HISTORY:Past Surgical History:Procedure Laterality Date ECHOCARDIOGRAM TRANSESOPHAGEAL N/A 03/20/2020 Procedure: ECHO TRANSESOPHAGEAL; Surgeon: Ward Durán MD; Laterality:N/A; EP STUDY N/A 03/20/2020 Procedure: ABLATION A-FIB; Surgeon: Ward Durán MD; Laterality: N/A;TRANSEPTAL IMPLANT/EXPLANT LOOP RECORDER 08/2020 WISDOM TOOTH EXTRACTION localALLERGIES:AllergiesAllergen Reactions [place] Meal Anaphylaxis Avocado AnaphylaxisMEDICATIONS:Prior to Admission medicationsMedication Sig Start Date End Date Taking? Authorizing Providermetoprolol tartrate (LOPRESSOR) 25 MG tablet Take 100 mg by mouth daily 1 1/2 qdHistorical Provider, Omeprazole 20 MG TBEC Take 20 mg by mouth daily as needed (for heartburn)Historical Provider, MDrivaroxaban (XARELTO) 20 MG TABS Take 1 tablet (20 mg total) by mouth daily Tostart after procedure --discharge nurse to inform when to start.Patient taking differently: Take 20 mg by mouth nightly To start after procedure--discharge nurse to inform when to start. 03/24/20 Benoit Puriertraline (ZOLOFT) 50 MG tablet Take 100 mg by mouth daily HistoricalProvider, MDSocial HistoryTobacco Use Smoking status: Current Every Day Smoker Packs/day: 1.00 Years: 5.00 Pack years: 5.00 Types: Cigarettes Smokeless tobacco: Never UsedSubstance Use Topics Alcohol use: Not Currently Comment: heavy drinking x 3 years - stopped 10/04/2020 Drug use: NeverFamily HistoryProblem Relation Age of Onset Healthy, No Significant History Mother Healthy, No Significant History Father Malig Hyperthermia Neg HxREVIEW OF SYSTEMS:Respiratory: Denies any shortness of breath, cough, yellow sputum production orwheezing.Cardiovascular: Denies any chest pain, pressure or tightness. Denies anyparoxysmal nocturnal dyspnea or orthopnea.GI: Denies nausea, vomiting, diarrhea, constipation or melena.Neurologic: Denies any numbness, tingling, tremors or syncope.Vascular: Denies any edema. Denies claudication.PHYSICAL EXAM:GENERAL: He is a 25 years old, pleasant AA male, in no acute distress at time ofexamination. Vitals on arrival to the office are BP 121/78 (BP Location: Rightupper arm, Patient Positi on: Sitting) | Pulse 85 | Temp 97.3 F | Resp 16 |Ht 1.702 m (5' 7") | Wt 76.7 kg (169 lb) | SpO2 100% | BMI 26.47 kg/m Bodymass index is 26.47 kg/m ..Skin is pink, warm, and dry.NECK: He has a grade II airway. Neck is supple, midline, without cervicaladenopathy. No thyromegaly. No carotid bruits.MENTAL / NEUROLOGICAL STATUS: [id number]: Clear to auscultation. No wheezes, rhonchi or crackles.HEART: Rate rhythm regular. S1, S2. No murmur, rub or gallop.ABDOMEN: Bowel sounds positive times four. Soft, non tender. No reboundtenderness. No hepatosplenomegaly. Negative CVAT.EXTREMITIES: Pulses are symmetrical. NO edema.Anesthesia complications: [facility] Frailty [facility] :: 3/10 Managing Well (medical problems are well controlled,but are not regularly active beyond routine walking).Stop Bang Questionnaire - Total Score:STOP-Bang Total Score: 2ASSESSMENT: Primary Diagnosis/Indication: Atrial fibrillation, unspecifiedtype.PLAN: Procedure: Mr Camargo is a 25-year-old male with history of recurrentParoxysmal atrial fibrillation. He is now scheduled to undergo ABLATION A-FIBECHO TRANSESOPHAGEAL on 9:13 Harini Burns document or parts of this document, were dictated using Telcare speaking software. A reasonable attempt at proofreading has beenmade to minimize errors. Please call with any questions or corrections.* Name Value Range Interpretation Code Description Data Sera rce(s) Supporting Document(s) ID Date Data Source [id number] 11/16/2020 05:46:21 PM EDT [facility] [place] SPEC EXP DATE 11/20/2020ATI ENT ABO/Rh O POSITIVEANTIBODY SCREEN NEGATIVETESTING SITE PERFORMED AT [address] [place], [place] [address]BLOOD BANK COMMENT BLOOD TYPE CONFIRMED. Name Value Range Interpretation Code Description Data Sera rce(s) Supporting Document(s) TYPE AND SCREEN [facility] MIC ID Date Data Source [id number] 11/16/2020 04:03:58 PM EDT [facility] Name Value Range Interpretation Code Description Data Sera rce(s) Supporting Document(s) WBC 3.7 10*3/uL (4.1-11.0) L [facility] RBC 4.93 10*6/uL (4.60-6.10) [facility] HGB 15.3 g/dL (13.5-18.0) [facility] HCT 45.9 % (41.0-53.0) [facility] MCV 93.3 fL (80.0-95.0) [facility] MCH 31.0 pg (27.0-32.0) [facility] MCHC 33.2 g/dL (32.0-36.0) [facility] RDW 13.7 % (10.5-14.5) [facility] PLT 149 10*3/uL (150-450) L [facility] MPV 11.0 fL (7.1-10.7) H [facility] ID Date Data Source [id number] 11/16/2020 03:47:26 PM EDT [facility] Name Value Range Interpretation Code Description Data Sera rce(s) Supporting Document(s) SODIUM 140 mmol/L (136-145) [facility] POTASSIUM 4.3 mmol/L (3.6-5.2) [facility] CHLORIDE 104 mmol/L (100-108) [facility] CO2 32 mmol/L (22-31) H [facility] ANION GAP 4 mmol/L (7-16) L [facility] UREA NITROGEN 14 mg/dL (7-24) [facility] CREATININE 1.01 mg/dL (0.80-1.30) [facility] BUN/CREAT RATIO 13.9 RATIO (10.0-20.0) [facility] GLUCOSE 89 mg/dL (70-99) [facility] CALCIUM 9.3 mg/dL (8.4-10.2) [facility] GFR >60 ml/min/1.73m2 (>59) [facility] GFR ( AMER) >60 ml/min/1.73m2 (>59) [facility] GFR INTERPRETATION [facility] --NORMAL KIDNEY FUNCTION OR MILD DISEASE - GFR >OR= 60CHRONIC KIDNEY DISEASE - GFR 15 - 59RENAL FAILURE - GFR <15 Est. GFR calculation based on the MDRDstudy equation, which assumes a steadystate for creatinine. Est. GFR should notbe used for medication dosing. ID Date Data Source [id number] 09/23/2020 04:40:52 PM EDT [facility] INFORMATIONPatient MRN Name Date of Age Gend*PT [id number] Gallito Hinojosa 1995 25 years M ---PT Location Admission Date/Time Visit ID Attending Provider --- --- --- --- EPI ID CSN Admitting Pro vider [id number] ---[facility] [id number] [facility], [address] (First Floor)[place], [place] [address]Wp.: Fax: Satient: Gallito Camargo : 1995Date: 09/23/20CARDIOLOGY TELEMEDICINE VISITPatient was identified by name and date of .Verbal consent was obtained from the patient for this telemedicine visit.Patient is aware of the risks, limitations, and benefits of a telemedicinevisit.This telemedicine assessment was conducted remotely with the assistance ofOcclutech communication technology. Telephone Only Codes 83512: 21-30 minutesof medical discussion: Telephone Only .Subjective:Gallito Camargo is 25 years male with atrial fibrillationHISTORY OF PRESENT ILLNESS: Patient is evaluated today at the request of . He has a history of cryoablation on March 202019. He recentlyhad a event recorder assessment done which demonstrated some paroxysmal episodesof atrial fibrillation. Patient complains of palpitations associated with chestpain. He denies any syncope or shortness of breath.Past medical history1. Paroxysmal atrial fibrillation status post cryoablation March 20, 2020FAMILY HISTORY: family history includes Healthy, No Significant History in hisfather and mother.SOCIAL HISTORY: reports that he has been smoking cigarettes. He has a 0.60pack-year smoking history. He has never used smokeless tobacco. He reports thathe drank alcohol. He reports that he does not use drugs.REVIEW OF SYSTEMS: Constitutional: Denies syncope. Denies fever, chills, weightloss or gain. Eyes: Denies blindness. Cardiovascular: Positive palpitations.Respiratory: Denies shortness of breath and dyspnea on exertion. GI: Deniesabdominal pain, nausea or vomiting. : Denies dysuria or hematuria.Musculoskeletal: Negative lower extremity edema. Integumentary: Denies rash.Neurologic: Denies seizures. Psychiatric: Denies depression or anxiety.Hematologic: Denies anemia.Current Outpatient Medications: metoprolol tartrate (LOPRESSOR) 25 MG tablet, Take 100 mg by mouth daily 04/13 qd, Disp: , Rfl: Omeprazole 20 MG TBEC, Take by mouth, Disp: , Rfl: rivaroxaban (XARELTO) 20 MG TABS, Take 1 tablet (20 mg total) by mouth dailyTo start after procedure --discharge nurse to inform when to start., Disp: 30tablet, Rfl: 6 sertraline (ZOLOFT) 50 MG tablet, Take 100 mg by mouth daily , Disp: , Rfl:ALLERGIES: is allergic to almond meal and avocado.Objective:PHYSICAL EXAMINATION: Deferred due to Telemedicine encounterSTUDIES REVIEWED: Last office note. Dr. Adams's records including ambulatorymonitor. Ablation procedure noteEKG: Deferred due to telemedicine encounter.Assessment/Plan:ASSESSMENT/PLAN: This is a 25-year-old gentleman with a history of atrialfibrillation status post ablation who has recurrence. I again reminded thepatient that the third of our patients will require more than 1 ablation duringtheir lifetime. I reviewed his ablation from 2020 any we achieved excellenttemperatures at the time of ablation with complete isolation of the veins.Unfortunately a third of patients will still have reconnection. I offered thepatient a repeat ablation versus medical therapy. He would like to proceed withrepeat ablation and will be scheduled electively.I have spent 20 minutes with the patient, counseling/coordinating the patient'scare. I discussed the diagnosis of atrial fibrillation and discussed Managementoption risks and benefitsFollow Up cryoablationSignature: Ward Durán MD, [facility], RSCardiac Electrophysiology and Arrhythmia ServiceDate: September 23, 2020Time: 4:37 PMThis document or parts of this document, were dictated using Egnyteware. A reasonable attempt at proofreading has been made to minimize errors.Please call with any questions or corrections. Name Value Range Interpretation Code Description Data Sera rce(s) Supporting Document(s) ID Date Data Source [id number] 08/17/2020 11:31:00 AM EST [facility] Name Value Range Interpretation Code Description Data Sera rce(s) Supporting Document(s) SARS coronavirus 2 RNA Not Detected [facility] This lab was ordered by [facility] and reported by [facility]. ID Date Data Source [id number] 07/09/2020 03:02:00 PM EST [facility] Name Value Range Interpretation Code Description Data Sera rce(s) Supporting Document(s) Calcium [Mass/volume] in Serum or Plasma 9.3 [facility] ([facility]) Sodium 141 [facility] Chloride [Moles/volume] in Serum or Plasma 103 [facility] ([facility]) Carbon dioxide, total [Moles/volume] in Serum or Plasma 32.5 [facility] ([facility]) Potassium [Moles/volume] in Serum or Plasma 4.20 [facility] ([facility]) Glucose 120 74-106 [facility] ([facility]) Blood Urea Nitrogen 11 7-18 [facility] (Ca [facility]) Creatinine 1.05 0.70-1.30 [facility] ([facility]) Glomerular filtration rate/1.73 sq M.pre dicted [Volume Rate/Area] in Serum or Plasma by Creatinine-based formula (MDRD) 99.6 [facility] ([facility]) ID Date Data Source [id number] 06/24/2020 11:06:40 AM EST [facility]PAT[facility] NT INFORMATIONPatient MRN Name Date of Age Gend*PT [id number] Gallito Hinojosa 1995 25 years M ---PT Location Admission Date/Time Visit ID Attending Provider --- --- --- --- EPI ID CSN Admitting Pro vider [id number] ---[facility] [id number] [facility], [address] (First Floor)[place], [place] [address]Us.: Fax: Fatient: Gallito Camargo : 1995Date: 06/24/20CARDIOLOGY TELEMEDICINE VISITPatient was identified by name and date of .Verbal consent was obtained from the patient for this telemedicine visit.Patient is aware of the risks, limitations, and benefits of a telemedicinevisit.This telemedicine assessment was conducted remotely with the assistance ofOcclutech communication technology. Telephone Only Codes 08589: 21-30 minutesof medical discussion: Telephone Only .Subjective:Gallito Camargo is 25 years male with atrial fibrillationHISTORY OF PRESENT ILLNESS: Patient is evaluated today for his atrialfibrillation. He is status post cryoablation on 20 March. He tells me thatsince his cryoablation he has not felt any better. He complains of intermittentepisodes of chest pain. He complains of abdominal pain. He states that he isgone to the emergency room because of chest pain and abdominal pain. He tellsme that he was told that his EKG was "abnormal ". He denies any syncope. Hedenies any shortness of breath.Past medical history1. Paroxysmal atrial fibrillation status post cryoablation March 20, 2020FAMILY HISTORY: family history includes Healthy, No Significant History in hisfather and mother.SOCIAL HISTORY: reports that he has been smoking cigarettes. He has a 0.60pack-year smoking history. He has never used smokeless tobacco. He reports thathe drank alcohol. He reports that he does not use drugs.REVIEW OF SYSTEMS: Constitutional: Denies syncope. Denies fever, chills, weightloss or gain. Eyes: Denies blindness. Cardiovascular: Positive chest pain.Respiratory: Denies shortness of breath and dyspnea on exertion. GI: Deniesabdominal pain, nausea or vomiting. : Denies dysuria or hematuria.Musculoskeletal: Negative lower e xtremity edema. Integumentary: Denies rash.Neurologic: Denies seizures. Psychiatric: Denies depression or anxiety.Hematologic: Denies anemia.Current Outpatient Medications: metoprolol tartrate (LOPRESSOR) 25 MG tablet, Take 25 mg by mouth daily 1/2BID , Disp: , Rfl: rivaroxaban (XARELTO) 20 MG TABS, Take 1 tablet (20 mg total) by mouth dailyTo start after procedure --discharge nurse to inform when to start., Disp: 30tablet, Rfl: 6 sertraline (ZOLOFT) 50 MG tablet, Take 50 mg by mouth daily , Disp: , Rfl:ALLERGIES: is allergic to almond meal and avocado.Objective:PHYSICAL EX AMINATION: Deferred due to Telemedicine encounterEKG: Deferred due to telemedicine encounter.Assessment/Plan:ASSESSMENT/PLAN: This is a 25-year-old gentleman with atrial fibrillation statuspost cryoablation. Post ablation the patient has not had an EKG that I can seewhich demonstrates any atrial fibrillation at all. [place] rhythm with PVCs. I am not sure he is having anyatrial fibrillation at all. I am not sure any of his symptoms already beencardiac in nature. This may all be anxiety driven. However we will need tocorrelate symptoms to his underlying cardiac rhythm. We will arrange for thepatient to have a 30-day event monitor done through his potato seed cutter [place]. If the event monitor shows atrial fibrillation then I will be happyto reevaluate the patient. With regards to his anticoagulation he will remainon Xarelto for the time being. If his event monitor shows no atrialfibrillation that he can come off of his Xarelto and go on an aspirin a Eric have spent 40 minutes with the patient, counseling/coordinating the patient'scare. I discussed the diagnosis of atrial fibrillation and discussed Managementoption risks and benefitsFollow Up please arrange for the patient to have a 30-day event monitor throughDr. Pinedo's office. Follow-up with me only if the event monitor shows atrialfibrillationSignature: Ward Durán MD, [facility], [facility] and Arrhythmia ServiceDate: June 24, 2020Time: 11:02 AMThis document or parts of this document, were dictated using Dragon speakingsoftware. A reasonable attempt at proofreading has been made to minimize errors.Please call with any questions or corrections. Name Value Range Interpretation Code Description Data Sera rce(s) Supporting Document(s) ID Date Data Source [id number] 05/22/2020 12:50:00 PM EST [facility] ([facility]) Name Value Range Interpretation Code Description Data Sera rce(s) Supporting Document(s) Troponin Laboratory test result [facility] ([facility]) ID Date Data Source [id number] 05/22/2020 12:50:00 PM EST [facility] Name Value Range Interpretation Code Description Data Sera rce(s) Supporting Document(s) White Blood Count 4.5 4.0-10.0 [facility] ([facility]) Red Blood Count 5.33 4.30-6.10 [facility] ([facility]) Platelets 168 150-450 [facility] ([facility]) Hemoglobin 15.7 [facility] ([facility]) Hematocrit 48.2 [facility] ([facility]) ID Date Data Source [id number] 05/22/2020 12:50:00 PM EST [facility] ([facility] Name Value Range Interpretation Code Description Data Sera rce(s) Supporting Document(s) Calcium [Mass/volume] in Serum or Plasma 9.7 [facility] ([facility]) Sodium 138 [facility] ([facility]) Carbon dioxide, total [Moles/volume] in Serum or Plasma 30 [facility] ([facility]) Potassium [Moles/volume] in Serum or Plasma 4.4 [facility] ([facility]) Chloride [Moles/volume] in Serum or Plasma 104 [facility] ([facility]) Blood Urea Nitrogen 14 7-18 [facility] ([facility]) Glucose 70 70-100 [facility] ([facility]) Glomerular filtration rate/1.73 sq M.pre dicted [Volume Rate/Area] in Serum or Plasma by Creatinine-based formula (MDRD) Laboratory test result [facility] ([facility]) Creatinine 1.06 0.70-1.30 [facility] ([facility]) ID Date Data Source [id number] 04/02/2020 02:04:26 PM EDT [facility] INFORMATIONPatient MRN Name Date of Age Gend*PT [id number] Gallito Hinojosa 1995 25 years M ---PT Location Admission Date/Time Visit ID Attending Provider --- --- --- --- EPI ID CSN Admitting Pro vider [id number] ---Cardiology Office NoteName: Gallito Camargo Gender: maleDate of : 1995 Age: 25 yearsPrimary Care Provider / Referring Physician: [facility]ather[facility] HistoryChief Complaint: Follow-up to recent cryoablation for atrial fibrillationHPI:This patient is a 25 years male presents today for follow-up. He has thefollowing medical problem list:1. Paroxysmal atrial fibrillation; status post cryoablation 03/20/2020Patient presents today for follow-up. He tells me that he did have episode ofchest pain and feeling short of breath postprocedure. [facility] He states that those symptoms have pretty much resolvedover the past couple of days. He denies any difficulty swallowing, he has nothad any fevers, chills, sweats. He denies any chest pain or shortness ofbreath, lower extremity edema. He states that his site is healing and has nothad any drainage. His EKG today reveals sinus rhythm with PAC.Review of Systems General Denies dizziness or lightheadedness. Denies any recent, unexpectedweight changes. HEENT Denies any loss or change of vision. Denies tinnitus. Respiratory Denies PND, orthopnea, MCFARLANE, hemoptysis, cough, or shortness ofbreath. Cardiac Denies chest pain or pressure, denies palpitations GI Denies melena, hematochezia, nausea, or vomiting. MS Denies any lower extremity edema. Neuro Denies speech, motor, or sensory impairment. Psych Denies depression or anxiety. Endo Denies polyuria or polydipsia, denies temperature intolerance. Derm Denies diaphoresis, non-healing skin woundsPast HistoryPast Medical History:Diagnosis Date Anxiety Cardiac murmur Depression Paroxysmal atrial fibrillation Syncope most recent 05/2019Pa Surgical History:Procedure Laterality Date ECHOCARDIOGRAM TRANSESOPHAGEAL N/A 03/20/2020 Procedure: ECHO TRANSESOPHAGEAL; Surgeon: Ward Durán MD; Laterality:N/A; EP STUDY N/A 03/20/2020 Procedure: ABLATION A-FIB; Surgeon: Ward Durán MD; Laterality: N/A;TRANSEPTAL WISDOM TOOTH EXTRACTION localFamily HistoryProblem Relation Age of Onset Healthy, No Significant History Mother Healthy, No Significant History Father Malig Hyperthermia Neg HxSocial HistorySocioeconomic History Marital status: Spouse name: Not on file Number of children: Not on file Years of education: Not on file Highest education level: Not on fileOccupational History Not on fileSocial Needs Financial resource strain: Not on file Food insecurity: Worry: Not on file Inability: Not on file Transportation needs: Medical: Not on file Non-medical: Not on fileTobacco Use Smoking status: Current Every Day Smoker Packs/day: 0.15 Years: 4.00 Pack years: 0.60 Types: Cigarettes Smokeless tobacco: Never UsedSubstance and Sexual Activity Alcohol use: Not Currently Frequency: Never Drug use: Never Sexual activity: Not on fileLifestyle Physical activity: Days per week: Not on file Minutes per session: Not on file Stress: Not on fileRelationships Social connections: Talks on phone: Not on file Gets together: Not on file Attends lutheran service: Not on file Active member of club or organization: Not on file Attends meetings of clubs or organizations: Not on file Relationship status: Not on file Intimate partner violence: Fear of current or ex partner: Not on file Emotionally abused: Not on file Physically abused: Not on file Forced sexual activity: Not on fileOther Topics Concern Bike Helmet Not Asked History of Falls Not Asked Self-Exams Not Asked Caffeine Concern Not Asked Hobby Hazards Not Asked Sleep Concern Not Asked Daily Calcium Supplement Not Asked Lead Exposure Not Asked Special Diet Not Asked Daily Vitamin D Supplement Not Asked Service Not Asked Stress Concern Not Asked Domestic Violence in home Not Asked Radon exposure Not Asked Weight Concern Not Asked Exercise Not Asked Seat Belt Not Asked Well water Not Asked Firearms in home Not AskedSocial History Narrative Not on fileMedications and AllergiesALLERGIES/SENSITIVITIES: [place] meal and AvocadoCurrent Outpatient Medications: metoprolol tartrate (LOPRESSOR) 25 MG tablet, Take 12.5 mg by mouth 2 (two)times a day 1/2 BID , Disp: , Rfl: rivaroxaban (XARELTO) 20 MG TABS, Take 1 tablet (20 mg total) by mouth dailyTo start after procedure --discharge nurse to inform when to start., Disp: 30tablet, Rfl: 6 sertraline (ZOLOFT) 50 MG tablet, Take 50 mg by mouth daily , Disp: , Rfl:PhysicalBMI: Body mass index is 27.87 kg/m .Blood Pressure: BP: 114/72 Pulse: Heart Rate: 78Temperature: Temp: 97.7 F Respirations: Resp: 20 Weight: Weight: 80.7 kg (178 lb) O2 Saturation: SpO2: 98 %Physical Exam General Well developed, well nourished, no acute distress Neck Soft and supple without lymphadenopathy or thyromegaly. No JVD. N obruits. Lungs Clear to auscultation, no crackles, rhonchi, or wheezes Heart Normal S1 S2, no murmurs, clicks, or gallops Musculoskeletal Appears to have normal range of motion x 4 extremities, nojoint swelling. No pedal edema Neuro Alert, orientedx3, no facial asymmetry Derm No rashes, or ulcers Vascular Pulses palpableDiagnosticsLabBMP:Lab ResultsComponent Value Date NA 140 03/13/2020 K 4.1 03/13/2020 CL 104 03/13/2020 CO2 33 (H) 03/13/2020 ANIONGAP 3 (L) 03/13/2020 CALCIUM 9.5 03/13/2020 GLU 85 03/13/2020 BUN 11 03/13/2020 CREATININE 1.02 03/13/2020 GFRAA >60 03/13/2020 GFRNONAA >60 03/13/2020CBC Brief:Lab ResultsComponent Value Date WBC 4.0 (L) 03/13/2020 HGB 15.9 03/13/2020 HCT 47.3 03/13/2020 PLT 130 (L) 03/13/2020EKG:EKG Results (Last 72 hours) 04/02/20 1402 POCT AMB EKG Final result Impression: Normal sinus rhythm with occasional PACAssessment & Plan1. Paroxysmal atrial fibrillation; patient is status post cryoablation andcurrently maintaining normal rhythm. He understands to continue with Xareltoand interrupted. He is aware of his upcoming Holter monitor and office visit.He knows to contact our office if he has any signs or symptoms secondary to thisprocedure.We appreciate the opportunity to care for this patient.Signature: Subha Bland NPDate: April 02, 2020Time: 2:02 PMThis document or parts of this document, were dictated using [employer]. A reasonable attempt at proofreading has been made to minimize errors.Please call with any questions or corrections. Name Value Range Interpretation Code Description Data Sera rce(s) Supporting Document(s) ID Date Data Source [id number] 03/24/2020 12:46:00 PM EDT [facility] ([facility]) Name Value Range Interpretation Code Description Data Sera rce(s) Supporting Document(s) Free T4 1.05 [facility] ([facility]) Thyroid Stimulating Hormone 0.923 ME DENT ([facility]) ID Date Data Source [id number] 03/24/2020 12:46:00 PM EDT [facility] ([facility]) Name Value Range Interpretation Code Description Data Sera rce(s) Supporting Document(s) Aspartate aminotransferase [Enzymatic activity/volume] in Serum or Plasma 24 [facility] ([facility]) Alkaline phosphatase [Enzymatic activity/volume] in Serum or Plasma 7 3 [facility] ([facility]) Alanine aminotransferase [Enzymatic activity/volume] in Serum or Pl asma 45 [facility] ([facility]) Protein [Mass/volume] in Serum or Plasma 7.6 [facility] ([facility]) Bilirubin.direct [Mass/volume] in Serum or Plasma Laboratory test res ult [facility] ([facility]) Bilirubin.total [Mass/volume] in Serum or Plasma 0.4 [facility] ([facility]) Albumin [Mass/volume] in Serum or Plasma 4.0 [facility] ([facility]) Cholesterol [Mass/volume] in Serum or Plasma Laboratory test result [facility] ([facility]) ID Date Data Source [id number] 03/24/2020 12:46:00 PM EDT [facility] ([facility]) Name Value Range Interpretation Code Description Data Sera rce(s) Supporting Document(s) Calcium [Mass/volume] in Serum or Plasma 9.6 [facility] ([facility]) Sodium 138 [facility] ([facility] Carbon dioxide, total [Moles/volume] in Serum or Plasma 30 [facility] ([facility]) Potassium [Moles/volume] in Serum or Plasma 4.1 [facility] ([facility]) Chloride [Moles/volume] in Serum or Plasma 103 [facility] ([facility]) Blood Urea Nitrogen 11 7-18 [facility] ([facility]) Glucose 95 70-100 [facility] ([facility]) Creatinine 0.98 0.70-1.30 [facility] ([facility]) Glomerular filtration rate/1.73 sq M.pre dicted [Volume Rate/Area] in Serum or Plasma by Creatinine-based formula (MDRD) Laboratory test result [facility] ([facility]) ID Date Data Source [id number] 03/24/2020 12:46:00 PM EDT [facility] ([facility]) Name Value Range Interpretation Code Description Data Sera rce(s) Supporting Document(s) White Blood Count 5.1 4.0-10.0 [facility] ([facility]) Red Blood Count 5.06 4.30-6.10 [facility] ([facility]) Platelets 132 150-450 [facility] ([facility]) Hemoglobin 15.4 [facility] ([facility]) Hematocrit 46.5 [facility] ([facility]) ID Date Data Source [id number] 03/20/2020 10:39:41 AM EDT [facility] Name Value Range Interpretation Code Description Data Sera rce(s) Supporting Document(s) &PDF [facility] IKWIJo9fVuOHJuZr42/AXHomLPGjf0NjZSdqIMi4IGfuAPUfN3QqvXviEAfUPZ7cQkBESAiUXNGzKFYM yZW F0q2ExTOBhYfAOeAR6OE1uKBRexlXbtvE5eT3lUL4LAFX+Qv6HSK2mt5TaIKb7TKPnd8SxPNcuQYl9D5 MdwPKvmuMjEemomTALUEDlMIFeN2onauv3eSEdWzA6Sv5RGtYnr4MhNAIoTGmOkmQwP9/jNhZ+X6D/gc A+dAo0MW+aeESo7vfqomwLNBYUixBTB3AJYY0lS5AZ dRcid3DdwNdcSMqIIAxWLxEqol2r3jzWJoOIrL4/oOMwwBgj/jN0STSV8qU68b8qf0qKAxwie5Un/TkQ fZbCTrdXrrlaDYP5ipGkYzdhONotMENoqUWrVM8k3FnBtxwxyWCJKlmvt+riEnEZMHREBeZotngz/Q7N /asE3qxHqXxTsWWex0BaJeFCqq+COdmJZeFI3PYD0v ER62Z7I1AlewdyCEYqfNFBsC64U3HdBHvEnqrJePMRFU3F8Uz9205ZrqMuYkABSb4iGcdKUt+c325bis niMP5fHokg3+X5zJ/JrBqUVdueObjawmWvxHtGgLYCFqoX0C9ckjyMUejfsYVGP2aJ/JyN8BzFEIBtsV KLNxd9rEnWdkO0S4I5TvnD+Ut46y+xqINgnsKOSc5S x09SXOYzhOYBJeGXcEYSEJVNjFSJTQQX9f9IgYEXQFEgsnN63KmmlkuQS9pcTLPM7WkbcN1MhyVVJPMU [file] W2AjMqADDcXBD2PBGrXdxiXc7vDTNNJd5+SBrjqOUhfJzkYSBRDnZ6DrJ5VSerOKYWYc1Q ID Date Data Source [id number] 03/20/2020 09:48:22 AM EDT [facility] NT INFORMATIONPatient MRN Name Date of Age Gend*PT [id number] Gallito Hinojosa 1995 25 years M HOPPT Location Admission Date/Time Visit ID Attending Provider --- --- --- --- EPI ID CSN Admitting Pro vider [id number] ---Arterial Line PlacementPatient location during procedure: ORIndications for arterial line: hemodynamic monitoringStaffingPerformed by: Rebel Arguelles MDApproved by: Rebel Arguelles MDCompleted: patient identified, risks and benefits discussed, surgical consentobtained, anesthesia consent obtained, monitors and equipment checked, pre-opevaluation completed, timeout performed, patient was prepped and draped in usualsterile fashion,Arterial Line InsertionSite prep: chlorhexidineAnesthesia: noneLaterality: leftLocation: radial arteryNeedle gauge: 20 GTechnique: ultrasound guidedNumber of attempts: 1AssessmentSutured: noDressing: dressing appliedPatient tolerance: tolerated well Name Value Range Interpretation Code Description Data Sera rce(s) Supporting Document(s) ID Date Data Source [id number] 03/20/2020 09:47:46 AM EDT [facility] NT INFORMATIONPatient MRN Name Date of Age Gend*PT [id number] Gallito Hinojosa 1995 25 years M HOPPT Location Admission Date/Time Visit ID Attending Provider --- --- --- --- EPI ID CSN Admitting Pro vider [id number] ---AirwayPatient location during procedure: ORUrgency: electiveDifficult airway: noAdvanced airway equipment used: noStaffingPerformed by: Rebel Arguelles MDAnesthesiologist: Rebel Arguelles MDIndications and Patient ConditionIndications for airway management: anesthesiaPreoxygenated: yesPatient position: sniffingIn-line stabilization: noMask ventilation: 1 - vent by maskFinal Airway/ApproachesFinal airway type: ETTNumber of attempts at final approach: 1Number of other approaches attempted: 0Final Airway DetailsFinal ETT airway: ETT - singleCuffed: yesTechnique used for successful ETT placement: direct laryngoscopyCricoid pressure: noRSI: noInsertion site: oralBlade type/size: MAC 3.5ETT size: 7.5 mmMeasured from: lipsETT to lips: 23 cmPlacement verified by: chest auscultation and + TBSQ5Tyqpecvxxoqk: equal breath sounds bilateral and CTAGrade view: grade I - full view of glottis Name Value Range Interpretation Code Description Data Sera e(s) Supporting Document(s) ID Date Data Source [id number] 03/20/2020 08:48:41 AM EDT [facility] Name Date of Age Gend*PT [id number] Gallito Hinojosa 1995 25 years M HOPPT Location Admission Date/Time Visit ID Attending ProviderCV-05 03/20/20 0756 --- Ward Durán MD([id number]) EPI ID CSN Admitting Provider [id number] Ward Durán MD([id number])H&P reviewed. The patient was examined and there are no changes to the H&P.Ward Durán MD8:48 AM Name Value Range Interpretation Code Description Data Sera rce(s) Supporting Document(s) ID Date Data Source [id number] 03/15/2020 08:21:00 AM EDT [facility] Name Value Range Interpretation Code Description Data Sera rce(s) Supporting Document(s) [facility] 2 [facility] This lab was ordered by [facility] and reported by [id number]. ID Date Data Source [id number] 03/17/2020 03:07:40 AM EDT [facility] Name Value Range Interpretation Code Description Data Sera rce(s) Supporting Document(s) SARS-COV-2 [facility] Not DetectedReference range: Not Detecte d This nucleic acid amplification test was developed and its performance characteristics determined by [facility]. Nucleic acid amplification tests include PCR and TMA. This test has not been FDA cleared or approved. This test has been authorized by FDA under an Emergency Use Authorization (EUA). This test is only authorized for the duration of time the declaration that circumstances exist justifying the authorization of the emergency use of in vitro diagnostic tests for detection of SARS-CoV-2 virus and/or diagnosis of COVID-19 infection under section 564(b)(1) of the Act, 21 U.S.C. 360bbb-3(b) (1), unless the authorization is terminated or revoked sooner. When diagnostic testing is negative, the possibility of a false negative result should be considered in the context of a patient's recent exposures and the presence of clinical signs and symptoms consistent with COVID- 19. An individual without symptoms of COVID- 19 and who is not shedding SARS -CoV-2 virus would expect to have a negative (not detected) result in this assay. Performed At: [facility] [address] [place] [id number] Jorge Fernando MD Ph:[phone] ID Date Data Source [id number] 03/13/2020 01:31:20 PM EDT [facility]FORMATIONPatient MRN Name Date of Age Gend*PT [id number] Gallito Hinojosa 1995 25 years M OPPT Location Admission Date/Time Visit ID Attending Provider --- --- --- Violeta Ortega([id number]) EPI ID CSN Admitting Provider [id number] ---OUTPATIENT / OBSERVATIONAL SURGICAL OR INVASIVE PROCEDUREName: Gallito Camargo : 1995 Sex: male Care Provider: [facility] CareAttending Physician: Dr. Durán.HISTORY OF PRESENT ILLNESS: 25 years old black male with a 3-year history ofpalpitations, shortness of breath and syncope related to a diagnosis of atrialfibrillation. He is currently serving in the [employer] and was to undergo anatrial fibrillation ablation last year in [facility] and declined due to theinexperience of the director media. His last syncopal episode was inD2018. He continues to have intermittent palpitations associated withshortness of breath and dyspnea on exertion. He feels the palpitations insternal area as well as under his rib cage and in his neck. He describedfeeling fatigued as "exhausted".PAST MEDICAL HISTORY:Past Medical History:Diagnosis Date Anxiety Cardiac murmur Depression Paroxysmal atrial fibrillation Syncope most recent 05/2019PAST SURGICAL HISTORY:Past Surgical History:Procedure Laterality Date WISDOM TOOTH EXTRACTION localALLERGIES:AllergiesAllergen Reactions [place] Meal Anaphylaxis Avocado AnaphylaxisMEDICATIONS:Prior to Admission medicationsMedication Sig Start Date End Date Taking? Authorizing Providermetoprolol tartrate (LOPRESSOR) 25 MG tablet Take 12.5 mg by mouth 2 (two) timesa day 1/2 BID Historical Provider, MDrivaroxaban (XARELTO) 20 MG TABS Take 1 tablet (20 mg total) by mouth daily Tostart after procedure --discharge nurse to inform when to start. 03/09/20 Benoit Eidertraline (ZOLOFT) 50 MG tablet Take 50 mg by mouth daily HistoricalProvider, MDSocial HistoryTobacco Use Smoking status: Current Every Day Smoker Packs/day: 0.25 Years: 4.00 Pack years: 1.00 Types: Cigarettes Smokeless tobacco: Never UsedSubstance Use Topics Alcohol use: Not Currently Frequency: Never Drug use: NeverFamily HistoryProblem Relation Age of Onset Healthy, No Significant History Mother Healthy, No Significant History Father Malig Hyperthermia Neg HxREVIEW OF SYSTEMS:Respiratory: Denies any shortness of breath at rest, cough, yellow sputumproduction or wheezing.Cardiovascular: Reports intermittent palpitations. Denies any chest pain,pressure or tightness. Denies any paroxysmal nocturnal dyspnea or orthopnea.GI: Denies nausea, vomiting, diarrhea, constipation or melena.Musculoskeletal: Reports chronic back pain.Neurologic: Denies any numbness, tingling, tremors or syncope.Vascular: Denies any edema. Denies claudication.PHYSICAL EXAM:GENERAL: He is a 25 years ol d, pleasant black male, in no acute distress at timeof examination. Vitals on arrival to the office are BP 142/83 (BP Location:Right upper arm, Patient Position: Sitting) | Pulse 100 | Temp 96.8 F(Temporal) | Ht 1.702 m (5' 7") | Wt 80.3 kg (177 lb 1.6 oz) | SpO2 (!) 78%| BMI 27.74 kg/m Body mass index is 27.74 kg/m ..Skin is pink, warm, and dry.NECK: He has a grade 4 airway. Neck is supple, midline, without cervicaladenopathy. No thyromegaly. No carotid bruits.MENTAL / NEUROLOGICAL STATUS: ULCi4NLMVB: Clear to auscultation. No wheezes, rhonchi or crackles.HEART: Rate rhythm regular. S1, S2. No murmur, rub or gallop.ABDOMEN: Bowel sounds positive times four. Soft, non tender. No reboundtenderness. No hepatosplenomegaly. Negative CVAT.EXTREMITIES: Pulses are symmetrical. No edema.Anesthesia complications: [facility] Fra[facility] :: 1/10 Very Fit (robust, active, energetic, well motivatedand fit.These people commonly exercise regularly and are in the most fit groupfor their age).Stop Bang Questionnaire - Total Score:STOP-Bang Total Score: 2ASSESSMENT: Paroxysmal atrial fibrillationPLAN: Procedure: Atrial fibrillation ablation and transesophageal echo.03/13/2020 1:31 PMHarini Hopper document or parts of this document, were dictated using [employer] software. A reasonable attempt at proofreading has beenmade to minimize errors. Please call with any questions or corrections.* Name Value Range Interpretation Code Description Data Sera rce(s) Supporting Document(s) ID Date Data Source [id number] 03/13/2020 12:40:00 PM EDT [facility] ([facility]) Name Value Range Interpretation Code Description Data Sera rce(s) Supporting Document(s) Red Blood Count 5.10 [facility] ([facility]) White Blood Count 4.0 [facility] ([facility]) Platelets 130 [facility] ([facility]) Hemoglobin 15.9 [facility] ([facility]) Hematocrit 47.3 [facility] ([facility]) ID Date Data Source [id number] 03/13/2020 12:40:00 PM EDT [facility] ([facility]) Name Value Range Interpretation Code Description Data Sera rce(s) Supporting Document(s) Sodium 140 [facility] ([facility] Carbon dioxide, total [Moles/volume] in Serum or Plasma 33 [facility] ([facility]) Calcium [Mass/volume] in Serum or Plasma 9.5 [facility] ([facility]) Chloride [Moles/volume] in Serum or Plasma 104 [facility] ([facility]) Glucose 85 [facility] ([facility]) Blood Urea Nitrogen 11 [facility] ([facility]) Potassium [Moles/volume] in Serum or Plasma 4.1 [facility] ([facility]) Glomerular filtration rate/1.73 sq M.pre dicted [Volume Rate/Area] in Serum or Plasma by Creatinine-based formula (MDRD) Laboratory test result [facility] ([facility]) Creatinine 1.02 [facility] ([facility]) ID Date Data Source [id number] 03/13/2020 12:11:56 PM EDT [facility] Name Value Range Interpretation Code Description Data Sera rce(s) Supporting Document(s) EKG [facility] HXZQYe6gUpQSBfFjb5UeMrDhWZVbAC7qkcg4R4C9cRHfC5ZuaOHxs9bsY4LgX8OnDTRjQMUSLA1AcGMw jb2 [file] f/music pastor/4///xFPz3/InfZ10a02Xp2O/Fo5HPyb/bvqY1R05W+jpyM3KGO+SyM/9yz+PIRSP/cs/i/P8L/ 550Vw69j7e/1MK52sca/zAhsoXEauec41KL72dw+1P 2exX/4v2fxH/CexZeap+ezNy1eprk/RSrpAeRLDEvaXCLwIWcyjNyIPMHGW2HSgCHtQlSAivUVILMjHk k83YOX357iLvTXekkgu2ai0YXs2eB6n/+AvFIIKkEyqHningzKexZ/Pl3hAzgrAU4/7ln8X+SNf+5Z/J +j+z/9NJ5YflQqGSWrgUNtxMR5cydBF+tOr5YPDLNH MB+MPRtIFZEwX5BL0ip20Up53RbppLSvR4J0OD5TAHBXoLrMvtZwtC1sHExIRfjR+yEIgkJABpsMNhls FeldcJoyy3B2BpVkFIGPiOH7xxFuFHFRPFZINYhBJBDOLEcKOXKXHJvYXSWLPXMkCSGMlAGANAGFHwGT [file] 76Xc1n6I95vZ+/JVh/qhaUbQDZnposywvE4o3V5 [file] 69IMB6YCOsy287I84mX1AbemEukBa8u50/94mML0+Z eJz+lo0vLqdN3W9iS9JgJ63qO+3IagiS+Qw6i/2F4cJtA7CkbdaDBdujN6jrFSD2lS8qWwgEfm/g80s9 ymMsTaMZR8fcCibUwdvcZcVkgMVWgqZGCxXdv9QB8HsDGfMEWcP8O5ABUyao5bATJbVTUauMCjNaPeXL LKWO9HzWWxQD2GAUo8RELyQCMePiXqTHXoweJ0EWFc HXEjYZWhV2AdsiEuuPVoXAQqNq1+EZ1jx6BdKuQzAUAdSoi0CI7TlFWkBL8MeONpkF0jtwHsI993wxXb VGUwIsmsb9JpIPrzDLLFSB1MZXP0VUB2NVVdQg8+IT4bo7DpDuAjKJUmJan9EM7AzAWrz6IzGW7EX3Fd NETlZARFBYO5w6GiESTkfexnkhurJ4SvSPE7mQ9nIK W7VAIqNOpnXZKgSCFiZuTmTVCfHYvrPVGwAZGjELAtZWMxYOt8lHTxFX8EH5EvDMLaLQKTRLUftmZwFj 6lKGoVAM9hKtQUNKoEUTMgPA3EZkTdSPNzHzk7MmZ6PQArL0PshgIdhFJjQSJUBMyhCoxnBIZsiW8qsS paB7FxGFM8m8UeLD0TU5SaGDXuHGFNVKP8c8XfUOCb wncdifcmBpGyTGDtFNWdQDWmIB2Tct1wkSMkbgAjHNBILZhcXdsuVN7whWblpfcxT1ZhhAVaPYR+PmVu QR1oya4+QgHpXSMoNso3ZPAuILnzXSKlEFPzQKMcI3toCYQfLvGeTVJqYsGuLF3Zs0WdlCCgKe5oeiRi YmoKeHJlZgogICAgIDAgICAgMjQKMDAwMDAwMDAwMC O1MVGsNRZeQBajGISzAOFiMLbvXQDeOXVaXI6qCcNzWGYxSXE6ENYgNADnFAXnnzXVLHYlKAF6WIucLC OqFCOkMCVzYIarJDOwSVGlZAObPMQ4GIN7ENPeLrGmPYYeHNRkTQAxDLOePBXkgqXWSFZrLKOyJYA5HW OoNCZqLNHqITdwOSAwOYWkAGxtUHLrUXYeEE1xAfUb ALXmXVPhRYkfBJSaRTWwtpFLDDDaQDTjHDDiAMQmFAMqHBBbPYjcRVHrKNPxHPWjGHWeKRIyNP7sPyHn VJXqZBC9VUHcKUMdIROtqfOUCRPuYGGhXJj3BWKtQPVeNOIvBBgtNOZsXDMeOMC6JPCdUIHxWT0sQxLx MEOfWTN5MnFiFVTiVNYpsiFJYIHeNOUhCWY4SjChWC BnLOUjISmkLADgOCVxJAreXPJiDIVoKX9hLtOnHCZiXLMtURiqJPKsIYAifrRJZUPlBRUfVWEhBbDsCF YuPQDpVBjgZXBkMGZiMyPxUMZqQCYzUP1aCoJrKODdABD2DVnpNEHfPZEvnzZRCAHwHEZkWIvcEABlUE BtTIMxIXwjIOLbPZXzOOM6KFQoDDMrVI7oJcKtBFHh ZNRnSZNkGmM3XrJoMiFCyNOjeSdozjv3QKdvH6h3DMLfKJjoUO4jtfNlWGNaKjsnSb9qfTU9UCRiNahF Vd3Aw8McahZ6mzKzTxTpYrN2MrQdIX4G ID Date Data Source [id number] 03/13/2020 10:22:00 AM EDT [facility] CT A NGIO CHESTCLINICAL HISTORY: Persistent atrial fibrillation. Preablation study.COMPARISON: None available.TECHNIQUE: 64 slice MDCT of the chest with multiplanar MIP and 3 D reconstructions was performed and reviewed. Images interpenetrated using Vitrea software.Contrast: 70 cc Isovue 370.No immediate complication.FINDINGS: Cardiac findings:Four pulmonary vein trunks supply the left atrium.LEFT:Superior pulmonary trunk diameter 14 mmInferior pulmonary trunk diameter 13.5 mm .Intervenous bridge 5mm.RIGHT:Superior pulmonary trunk diameter-16mmInferior pulmonary trunk diameter-13 mmIntervenous bridge-5mm.Heart was within the limits of size. There is no pericardial effusion.Ancillary findings:Lung parenchyma and pleura: The lungs are clear and expanded. No suspicious nodules, infiltrates, or effusions are identified.Mediastinum: No adenopathy.Chest wall: No abnormal masses or fluid collections identified. No axillary adenopathy identified.Upper abdomen: No abnormal masses or fluid collections identified.IMPRESSION: CTA for EP planning performed, findings as above.During this public health emergency, we are using enhanced sterilization techniques and PPE for your protection.Dictated by: JOSE RAFAEL CASTELAN M.D. on 03/13/2020 Transcribed by: janice on 03/13/2020 12:32 PMCDS G code: , ,CDS Modifier: , ,cc: Name Value Range Interpretation Code Description Data Sera rce(s) Supporting Document(s) ID Date Data Source [id number] 03/13/2020 07:44:40 PM EDT [facility] SPEC EXP DATE 03/21/2020PATI ENT ABO/Rh O POSITIVEANTIBODY SCREEN NEGATIVETESTING SITE PERFORMED AT [address] [place] [address] Name Value Range Interpretation Code Description Data Sera rce(s) Supporting Document(s) TYPE AND SCREEN [facility] PATIENT ABO/Rh O POSITIVE ID Date Data Source [id number] 03/13/2020 03:58:34 PM EDT [facility] Name Value Range Interpretation Code Description Data Sera rce(s) Supporting Document(s) SODIUM 140 mmol/L (136-145) [facility] POTASSIUM 4.1 mmol/L (3.6-5.2) [facility] CHLORIDE 104 mmol/L (100-108) [facility] CO2 33 mmol/L (22-31) H [facility] ANION GAP 3 mmol/L (7-16) L [facility] UREA NITROGEN 11 mg/dL (7-24) [facility] CREATININE 1.02 mg/dL (0.80-1.30) [facility] BUN/CREAT RATIO 10.8 RATIO (10.0-20.0) [facility] GLUCOSE 85 mg/dL (70-99) [facility] CALCIUM 9.5 mg/dL (8.4-10.2) [facility] GFR >60 ml/min/1.73m2 (>59) [facility] GFR ( AMER) >60 ml/min/1.73m2 (>59) [facility] GFR INTERPRETATION [facility] --NORMAL KIDNEY FUNCTION OR MILD DISEASE - GFR >OR= 60CHRONIC KIDNEY DISEASE - GFR 15 - 59RENAL FAILURE - GFR <15 Est. GFR calculation based on the MDRDstudy equation, which assumes a steadystate for creatinine. Est. GFR should notbe used for medication dosing. ID Date Data Source [id number] 03/13/2020 03:36:51 PM EDT [facility] Name Value Range Interpretation Code Description Data Sera e(s) Supporting Document(s) WBC 4.0 10*3/uL (4.1-11.0) L [facility] [place] RBC 5.10 10*6/uL (4.60-6.10) [facility] HGB 15.9 g/dL (13.5-18.0) [facility] HCT 47.3 % (41.0-53.0) [facility] MCV 92.6 fL (80.0-95.0) [facility] MCH 31.1 pg (27.0-32.0) [facility] MCHC 33.6 g/dL (32.0-36.0) [facility] RDW 13.8 % (10.5-14.5) [facility] PLT 130 10*3/uL (150-450) L [facility] MPV 10.4 fL (7.1-10.7) [facility] ID Date Data Source [id number] 03/09/2020 02:03:44 PM [facility] Name Date of Age Gend*PT [id number] Gallito Hinojosa 1995 25 years M ---PT Location Admission Date/Time Visit ID Attending Provider --- --- --- --- EPI ID CSN Admitting Pro vider [id number] ---Addended by: SUBHA BLAND on: 03/09/2020 02:03 PM Modules accepted: Orders Name Value Range Interpretation Code Description Data Sera rce(s) Supporting Document(s) Procedure Social History Code Duration Value Status Description Data Source(s ) Alcohol intake 03/02/2021 12:00:00 AM EDT Ex-drinker (finding) comp leted Ex- drinker (finding) [facility] Alcohol intake 11/19/2020 12:00:00 AM EDT Ex-drinker (finding) comp leted Ex- drinker (finding) [facility] Alcohol intake 11/16/2020 12:00:00 AM EDT Ex-drinker (finding) comp leted Ex- drinker (finding) [facility] Alcohol intake 09/22/2020 12:00:00 AM EDT Not Currently completed [facility] Cigarette pack-years 09/22/2020 12:00:00 AM EDT UNK completed [facility] Cigarettes smoked current (pack per day) - Reported 09/23/19 12:00:00 AM EDT UNK completed [facility] Smoking 09/22/2020 12:00:00 AM EDT Current every day smoker co mpleted Current every day smoker [facility] Alcohol intake 06/24/2020 12:00:00 AM EST Not Currently completed [facility] Cigarette pack-years 06/24/2020 12:00:00 AM EST UNK completed [facility] Cigarettes smoked current (pack per day) - Reported 06/24/19 12:00:00 AM EST UNK completed [facility] Smoking 06/24/2020 12:00:00 AM EST Current every day smoker co mpleted Current every day smoker [facility] Vital Signs ID Date Data Source UNK Name Value Range Interpretation Code Description Data Source(s) Heart rate 111 /min 111 /min [facility] ([facility]) 108, regular Systolic blood pressure--sitting 136 mm[Hg] 136 mm[Hg] [facility] ([facility]) Ra, large cuff Diastolic blood pressure--sitting 86 mm[Hg] 86 mm[Hg] [facility] ([facility]) Ra, large cuff Body weight 179.00 [lb_av] 179.00 [lb_av] MEDEN T ([facility]) in full uniform 8 lbs Body height 68 [in_i] 68 [in_i] [facility] ([facility]) 5'8" Body mass index (BMI) [Ratio] 27.2 kg/m2 27.2 k g/m2 [facility] ([facility]) Systolic blood pressure 120 mm[Hg] 120 mm[Hg] M EDENT ([facility] ) Coy body weight 148 [lb_av] 148 [lb_av] [facility] T ([facility] ) Diastolic blood pressure 80 mm[Hg] 80 mm[Hg] [facility] ([facility] ) Heart rate 72 /min 72 /min [facility] ([facility] ) Body height 67 [in_i] 67 [in_i] [facility] ([facility]) 5'7" Body weight 168.00 [lb_av] 168.00 [lb_av] [facility] T ([facility]) Body mass index (BMI) [Ratio] 26.3 kg/m2 26.3 k g/m2 [facility] ([facility]) Body temperature 97.7 [degF] 97.7 [degF] [facility] ([facility]) Body height 66 [in_i] 66 [in_i] [facility] ([facility]) 5'6" Body weight 169.50 [lb_av] 169.50 [lb_av] [facility] T ([facility]) Body mass index (BMI) [Ratio] 27.4 kg/m2 27.4 k g/m2 [facility] ([facility]) Systolic blood pressure 118 mm[Hg] 118 mm[Hg] [facility] Diastolic blood pressure 66 mm[Hg] 66 mm[Hg] [facility] Heart rate 101 /min 101 /min [facility] Oxygen saturation in Arterial blood by Pulse oximetry 99 % 99 % [facility] Body temperature 36.5 Delphine 36.5 Delphine [facility] Respiratory rate 18 /min 18 /min [facility] Body weight 76.794 kg 76.794 kg [facility] Body mass index (BMI) [Ratio] 26.52 kg/m2 26.52 kg/m2 [facility] Heart rate 85 /min 85 /min [facility] Systolic blood pressure 121 mm[Hg] 121 mm[Hg] [facility] Diastolic blood pressure 78 mm[Hg] 78 mm[Hg] [facility] Body temperature 36.28 Delphine 36.28 Delphine [facility] Respiratory rate 16 /min 16 /min [facility] Body height 170.2 cm 170.2 cm [facility] Body weight 76.658 kg 76.658 kg [facility] Body mass index (BMI) [Ratio] 26.47 kg/m2 26.47 kg/m2 [facility] Oxygen saturation in Arterial blood by Pulse oximetry 100 % 100 % [facility] Systolic blood pressure--sitting 124 mm[Hg] 124 mm[Hg] [facility] ([facility]) Ra, large cuff Diastolic blood pressure--sitting 72 mm[Hg] 72 mm[Hg] [facility] ([facility]) Ra, large cuff Body weight 175.00 [lb_av] 175.00 [lb_av] [facility] T ([facility]) in full uniform 8 lbs Body height 68 [in_i] 68 [in_i] [facility] ([facility]) 5'8" Body mass index (BMI) [Ratio] 26.6 kg/m2 26.6 k g/m2 [facility] ([facility]) Body weight 173.00 [lb_av] 173.00 [lb_av] [facility] T ([facility]) in full uniform 6 lbs Diastolic blood pressure--sitting 72 mm[Hg] 72 mm[Hg] [facility] ([facility]) Ra, large cuff Body height 68 [in_i] 68 [in_i] [facility] ([facility]) 5'8" Body mass index (BMI) [Ratio] 26.3 kg/m2 26.3 k g/m2 [facility] ([facility]) Systolic blood pressure--sitting 122 mm[Hg] 122 mm[Hg] [facility] ([facility]) Ra, large cuff Body weight 172.00 [lb_av] 172.00 [lb_av] [facility] T ([facility]) in full uniform Body height 68 [in_i] 68 [in_i] [facility] 5'8" Body mass index (BMI) [Ratio] 26.1 kg/m2 26.1 k g/m2 [facility] ([facility]) Heart rate 72 /min 72 /min [facility] ([facility]) regular Respiratory rate 16 /min 16 /min [facility] ( [facility]) nonlabored Systolic blood pressure--sitting 118 mm[Hg] 118 mm[Hg] [facility] ([facility]) Ra, large cuff Diastolic blood pressure--sitting 78 mm[Hg] 78 mm[Hg] [facility] ([facility]) Ra, large cuff Body weight 175.00 [lb_av] 175.00 [lb_av] [facility] T ([facility]) Heart rate 71 /min 71 /min [facility] ([facility]) Systolic blood pressure--sitting 118 mm[Hg] 118 mm[Hg] [facility] ([facility]) large cuff, Ra Diastolic blood pressure--sitting 80 mm[Hg] 80 mm[Hg] [facility] ([facility]) large cuff, Ra Body height 68 [in_i] 68 [in_i] [facility] ([facility]) 5'8" Body mass index (BMI) [Ratio] 26.6 kg/m2 26.6 k g/m2 [facility] ([facility]) Patient Treatment Plan of Care Planned Activity Planned Date Details Description Data Source (s) Flecainide Acetate 50 MG Oral Tablet 03/03/2021 12:00:00 AM EDT [facility] rivaroxaban 20 MG Oral Tablet 12/23/2020 12:00:00 AM EDT [facility] normal saline flush 0.9 % injection 3 mL 11/19/2020 02:00:00 PM EDT [facility] normal saline flush 0.9 % injection 3 mL 11/19/2020 02:00:00 PM EDT [facility] normal saline flush 0.9 % injection 3 mL 11/19/2020 02:00:00 PM EDT [facility] fentaNYL Citrate (PF) (SUBLIMAZE) injection 25 mcg 11/19/2020 01 :20:51 PM EDT [facility] HYDROmorphone (DILAUDID) injection 0.5 mg 11/19/2020 01:20:51 PM ED T [facility] Albuterol 0.833 MG/ML / Ipratropium [place] 0.167 MG/M L Inhalant Solution 11/19/2020 01:20:51 PM EDT [facility] 10 ML Atropine Sulfate 0.1 MG/ML Prefilled Syringe 11/19/2020 01 :20:50 PM EDT [facility] rivaroxaban 20 MG Oral Tablet 03/24/2020 12:00:00 AM EDT [facility]
[2021-04-19] MEDS ORDERED: MIRT1TAB16 PO (08:47)
[2021-04-19] MEDS ORDERED: FLEC50HA PO (08:47)
--- OUTSIDE RECORDS SUMMARY | 2021-04-19 09:36 | CCD ---
Author Author [facility] Organization [facility] Address Unknown Phone Unavailable Care Team Providers Care Commercial Subcontractor Name Role Phone Deny, L Olimpia PA [...] Deny, L Olimpia PA Unavailable Unavailable UNKNOWN, [facility] Unavailable Unavailable Rodney Bermudez MD Unavailable Unavailable Rodney Bermudez MD Unavailable Unavailable Rodney Bermudez MD Unavailable Unavailable Rodney Bermudez MD Unavailable Unavailable Rodney Bermudez MD Unavailable Unavailable Rodney Bermudez MD Unavailable Unavailable Estrella, L Scooter ULLOA Unavailable Unavailable Estrella, L Scooter ULLOA Unavailable Unavailable Estrella, L Scooter ULLOA Unavailable Unavailable Estrella, L Scooter ULLOA Unavailable Unavailable Estrella, L Scooter ULLOA Unavailable Unavailable Estrella, Ginny Helms MD [...] Peck PA-C Unavailable Unavailable ZABOROWSKI, J SUBHA BASKETBALL COACH Unavailable Unavailable ZABOROWSKI, J SUBHA BASKETBALL COACH Unavailable Unavailable ZABOROWSKI, J SUBHA BASKETBALL COACH Unavailable Unavailable ZABOROWSKI, J SUBHA BASKETBALL COACH Unavailable Unavailable ZABOROWSKI, J SUBHA BASKETBALL COACH Unavailable Unavailable ZABOROWSKI, J SUBHA BASKETBALL COACH Unavailable Unavailable ZABOROWSKI, J SUBHA BASKETBALL COACH Unavailable Unavailable ZABOROWSKI, J SUBHA BASKETBALL COACH Unavailable Unavailable ZABOROWSKI, J SUBHA BASKETBALL COACH Unavailable Unavailable ZABOROWSKI, J SUBHA BASKETBALL COACH Unavailable Unavailable ZABOROWSKI, J SUBHA BASKETBALL COACH Unavailable Unavailable ZABOROWSKI, J SUBHA BASKETBALL COACH Unavailable Unavailable ZABOROWSKI, J SUBHA BASKETBALL COACH Unavailable Unavailable ZABOROWSKI, J SUBHA BASKETBALL COACH Unavailable Unavailable ZABOROWSKI, J SUBHA BASKETBALL COACH Unavailable Unavailable ZABOROWSKI, J SUBHA BASKETBALL COACH Unavailable Unavailable ZABOROWSKI, J SUBHA BASKETBALL COACH Unavailable Unavailable ZABOROWSKI, J SUBHA BASKETBALL COACH Unavailable Unavailable ZABOROWSKI, J SUBHA BASKETBALL COACH Unavailable Unavailable ZABOROWSKI, J SUBHA BASKETBALL COACH Unavailable Unavailable ZABOROWSKI, J SUBHA BASKETBALL COACH Unavailable Unavailable ZABOROWSKI, J SUBHA BASKETBALL COACH Unavailable Unavailable ZABOROWSKI, J SUBHA BASKETBALL COACH Unavailable Unavailable ZABOROWSKI, J SUBHA BASKETBALL COACH Unavailable Unavailable ZABOROWSKI, J SUBHA BASKETBALL COACH Unavailable Unavailable ZABOROWSKI, J SUBHA BASKETBALL COACH Unavailable Unavailable ZABOROWSKI, J SUBHA BASKETBALL COACH Unavailable Unavailable ZABOROWSKI, J SUBHA BASKETBALL COACH Unavailable Unavailable ZABOROWSKI, J SUBHA BASKETBALL COACH Unavailable Unavailable ZABOROWSKI, J SUBHA BASKETBALL COACH Unavailable Unavailable ZABOROWSKI, J SUBHA BASKETBALL COACH Unavailable Unavailable ZABOROWSKI, J SUBHA BASKETBALL COACH Unavailable Unavailable ZABOROWSKI, J SUBHA BASKETBALL COACH Unavailable Unavailable ZABOROWSKI, J SUBHA BASKETBALL COACH Unavailable Unavailable ZABOROWSKI, J SUBHA BASKETBALL COACH Unavailable Unavailable ZABOROWSKI, J SUBHA BASKETBALL COACH Unavailable Unavailable ZABOROWSKI, J SUBHA BASKETBALL COACH Unavailable Unavailable ZABOROWSKI, J SUBHA BASKETBALL COACH Unavailable Unavailable ZABOROWSKI, J SUBHA BASKETBALL COACH Unavailable Unavailable ZABOROWSKI, J SUBHA BASKETBALL COACH Unavailable Unavailable ZABOROWSKI, J SUBHA BASKETBALL COACH Unavailable Unavailable ZABOROWSKI, J SUBHA BASKETBALL COACH Unavailable Unavailable ZABOROWSKI, J SUBHA BASKETBALL COACH Unavailable Unavailable ZABOROWSKI, J SUBHA BASKETBALL COACH Unavailable Unavailable ZABOROWSKI, J SUBHA BASKETBALL COACH Unavailable Unavailable ZABOROWSKI, J SUBHA BASKETBALL COACH Unavailable Unavailable ZABOROWSKI, J SUBHA BASKETBALL COACH Unavailable Unavailable ZABOROWSKI, J SUBHA BASKETBALL COACH Unavailable Unavailable Al Mudamgha, A Ali Unavailable [...] A Ali MD Unavailable Unavailable Georgette, Itzel BASKETBALL COACH Unavailable Unavailable Georgette, Itzel BASKETBALL COACH Unavailable Unavailable Georgette, Itzel BASKETBALL COACH Unavailable Unavailable Georgette, Itzel BASKETBALL COACH Unavailable Unavailable Georgette, Itzel BASKETBALL COACH Unavailable Unavailable Georgette, Itzel BASKETBALL COACH Unavailable Unavailable Georgette, Itzel BASKETBALL COACH Unavailable Unavailable Georgette, Itzel BASKETBALL COACH Unavailable Unavailable CHANLIECCO, C GIORGI MD Unavailable [...] is protected by Article 27-F of the [facility] Public Health law. If you continue you may have access to information: Regarding HIV / AIDS; Provided by facilities licensed or operated by the [facility] Office of Mental Health; or Provided by the [facility] Office for People With Developmental Disabilities. If such information is present, then the following [facility] mandated warning applies: This information has [...] law may result in a fine or fpc sentence or both. A general authorization for the release of medical or other information is NOT sufficient authorization for further disc losure. Allergies and Adverse Reactions Type Description Substance Reaction Status Data Source(s ) Propensity to adverse reactions AVOCADO avocado allergen ic extract Anaphylaxis High [facility] High Propensity to adverse reactions ALMOND MEAL [place] Meal Anaphylax is High [facility] High Family History Family Member Name Family Member Gender Family Member Status Date o f Status Description Data Source(s) Unknown Male Problem [facility] ([facility] Encounters Encounter Providers Location Date Indications Data Source(s ) Outpatient Attender: OFELIA STEINBERG Main Office 03/25/2021 0 3:00:00 PM EDT [facility] ([facility]) Outpatient Attender: Ward Holt MD BF-BF 03/03/2021 12:00:0 0 AM EDT [facility] Emergency Attender: Rodney Bermudez MDConsultant: ELIZABETH UNKNOWN 02/23/2021 08:45:00 AM EDT - 02/23/2021 09:55:00 AM EDT [facility] ital Patient discharged. Outpatient Attender: Ward RAIBF.[facility] 02/17/2021 07:55:5 7 AM EDT [facility] Outpatient Attender: Scooter Estrella MD Physical Therapy 01/18/2021 0 9:15:00 [facility] Emergency Attender: Rodney Bermudez MD 01/17/2021 02:19:00 PM EDT - 01/17/2021 06:26:00 PM EDT [facility] Patient discharged. Emergency Attender: GIORGI MENJIVAR MD 01/12/2021 11:26:00 AM EDT - 01/12/2021 12:47:00 PM EDT [facility] Patient discharged. Outpatient BF-BF.[facility] 12/23/2020 12:00:00 AM EDT [facility] Outpatient Attender: Joy Peck PA-C BFAnayBF.[facility] 12:00:00 AM EDT - 12/10/2020 12:14:04 PM EDT [facility] Outpatient Attender: Ward Holt MD Admitter: Ward Holt MDReferrer: Itzel Palomino NP 1-SJ.CVAU 11/19/2020 10:35:00 AM EDT - 11/19/2020 04:00:00 PM EDT [facility] Patient discharged. Outpatient Attender: Ward Holt MDReferrer: Ward Cisse MD MOB-MOB.PAT 11/16/2020 08:33:23 AM EDT - 11/16/2020 09:11:20 AM EDT [facility] Outpatient Referrer: Ward Holt MD MOB-MOB.PAT 11/16/2020 1 2:00:00 AM EDT [facility] [id number] 10/30/2020 08:14:38 AM EDT [facility] [id number] 10/21/2020 03:27:49 PM EDT [facility] [id number] 10/16/2020 03:52:09 PM EDT [facility] Attender: Ward Holt MD BF-BF.[facility] 09/23/2020 07:57:5 3 AM EDT [facility] [id number] 09/17/2020 03:27:44 PM EDT [facility] [id number] 09/01/2020 01:54:08 PM EDT [facility] Outpatient Attender: OFELIA STEINBERG Main Office 08/11/2020 1 1:45:00 AM EST [facility] ([facility]) Outpatient Attender: OFELIA STEINBERG Main Office 08/03/2020 0 9:15:00 AM EST [facility] ([facility]) Outpatient Attender: Ward Holt MD BF-BF.[facility] 06/24/2020 12:00:0 0 AM EST [facility] Outpatient Attender: OFELIA STEINBERG Main Office 06/15/2020 0 8:15:00 AM EST [facility] ([facility]) Outpatient BF-BF.[facility] 04/30/2020 12:00:00 AM EST [facility] Out[facility] Attender: SUBHA BLAND NP BF-BF 04/02/2020 12:00:0 0 AM EDT [facility] Out[facility] Attender: Ward Holt MDAdmitter: Ward Cisse MD ES1-SJ.CVAU 03/20/2020 07:56:00 AM EDT - 03/20/2020 01:57:00 PM EDT [facility] Patient discharged. Outpatient Attender: Olimpia STEINBERG Main Office 03/16/2020 09:15:0 0 AM EDT [facility] ([facility]) Outpatient Referrer: Ward Holt MD MOB-MOB.PAT 09/2019 11:08:31 AM EDT - 03/15/2020 11:08:36 AM EDT [facility] Outpatient Referrer: Ward Holt MD 03/13/2020 09:52:0 7 AM EDT [facility] Outpatient Attender: Ward Holt MDReferrer: Ward Cisse MD MOB-MOB.PAT 03/13/2020 08:53:42 AM EDT - 03/13/2020 09:53:39 AM EDT [facility] BF-BF 03/09/2020 02:03:44 PM EDT [facility] Outpatient Referrer: Ward Holt MD 03/05/2020 08:13:2 2 AM EDT [facility] Immunizations Vaccine Date Status Description Data Source(s) 10/27/2020 12:00:00 AM EDT completed <td I D="[id number]">Covid-19 (Pfizer)</td><td>10/27/2020, 08/25/2020</td><td></td> [facility] COVID-19 VACCINE Pfizer 10/27/2020 12:00:00 AM EDT completed NYSIIS Vaccine Series Complete: YESThis Data wa s Submitted to [facility] Via [employer]. 08/25/2020 12:00:00 AM EDT completed <td I D="[id number]">Covid-19 (Pfizer)</td><td>10/27/2020, 08/25/2020</td><td></td> [facility] COVID-19 VACCINE Pfizer 08/25/2020 12:00:00 AM EDT completed TapjoySIIS Vaccine Series Complete: YESThis Data wa s Submitted to [facility] Via [employer]. Medications Medication Brand Name Start Date Product Form Dose Route Admi nistrative Instructions Pharmacy Instructions Status Indications Reaction Description Data Source(s) gabapentin 300 MG Oral Capsule Gabapentin 04/14/2021 12:00:00 AM EDT ORAL active [facility] ([facility]) Mirtazapine 7.5 MG Oral Tablet Mirtazapine 04/14/2021 12:00:00 AM EDT ORAL active [facility] ([facility]) Omeprazole 20 MG Delayed Release Oral Capsule Omeprazole 03/24/2021 12:00:00 AM EDT ORAL completed [facility] ([facility]) duloxetine 30 MG Delayed Release Oral Capsule [Cymbalta] Cym bishop 03/24/2021 12:00:00 AM EDT ORAL active M [facility]ENT ([facility]) gabapentin 600 MG Oral Tablet Gabapentin 03/24/2021 12:00:00 AM EDT ORAL completed [facility] ([facility]) Flecainide Acetate 50 MG Oral Tablet flecainide (TAMBO COR) 50 MG tablet flecainide (TAMBOCOR) 50 MG tablet 03/03/2021 12:00:00 AM EDT 50 mg Oral active Take 1 tablet (50 mg total) by m outh 2 (two) times a day [facility] 8 HR Acetaminophen 650 MG Extended Release Oral Tablet [Tyle nol] Tylenol 8 Hour 02/01/2021 12:00:00 AM EDT active [facility] ([facility]) 24 HR metoprolol succinate 200 MG Extended Release Ora l Tablet Metoprolol Succinate ER 01/21/2021 12:00:00 AM EDT ORAL completed [facility] ([facility]) rivaroxaban 20 MG Oral Tablet rivaroxaban (Xarelto) 20 MG TABS rivaroxaban (Xarelto) 20 MG TABS 12/23/2020 12:00:00 AM EDT 20 mg Oral active Take 1 tablet (20 mg total) by mouth daily [facility] normal saline flush 0.9 % injection 3 mL [id number] 11/19/2020 02:00:00 PM EDT 3 mL Intravenous active 3 mL , Intravenous, Every 8 hours (scheduled), First dose on Kendra 11/19/20 at 1400, PACU (only)
flush per protocol, D/C Main IV fluid if appropriate
[facility] Medication administered onsite normal saline flush 0.9 % injection 3 mL [id number] 11/19/2020 02:00:00 PM EDT 3 mL Intravenous active 3 mL , Intravenous, Every 8 hours (scheduled), First dose on Kendra 11/19/20 at 1400, Pre-op
Rapid push positive pressure flushing shall be performed with a 10 cc normal saline syringe to check the PATENCY of a PIV site prior to any infusion therapy initiation unless resistance is met.
[facility] Medication administered onsite normal saline flush 0.9 % injection 3 mL [id number] 11/19/2020 02:00:00 PM EDT 3 mL Intravenous active 3 mL , Intravenous, Every 8 hours (scheduled), First dose on Kendra 11/19/20 at 1400, Pre-op
Rapid push positive pressure flushing shall be performed with a 10 cc normal saline syringe to check the PATENCY of a PIV site prior to any infusion therapy initiation unless resistance is met.
[facility] Medication administered onsite 1 ML Ketorolac Tromethamine 30 MG/ML Car tridge ketorolac (TORADOL) injection 30 mg ketorolac (TORADOL) injection 30 mg 11/19/2020 01:46:43 PM EDT 30 mg Intravenous completed 30 mg, Intrav enous, Once as needed, severe pain (7-10), Starting on Kendra 11/19/20 at 1346, For 1 dose [facility] Medication administered onsite HYDROmorphone (DILAUDID) injection 0.5 mg [id number] 11/19/2020 01:20:51 PM EDT 0.5 mg Intravenous active 0.5 mg, Intravenous, Every 5 min PRN, severe pain (7-10), Starting on Kendra 11/19/20 at 1320, For 5 doses, PACU (only) [facility] Medication administered onsite ondansetron (ZOFRAN) injection 4 mg [id number] 11/19/2020 01:20:5 1 PM EDT 4 mg Intravenous completed 4 mg, In travenous, Once as needed, nausea, vomiting, Starting on Kendra 11/19/20 at 1320, For 1 dose, PACU (only)
If not given in last 4 hours
[facility] Medication administered onsite Albuterol 0.833 MG/ML / Ipratropium Brom maxine 0.167 MG/ML Inhalant Solution ipratropium-albuterol (DUO-NEB) 0.5-2.5 mg/mL nebulizer solution 3 mL ipratropium-albuterol (DUO-NEB) 0.5-2.5 mg/mL nebulizer solution 3 mL 11/19/2020 01:20:51 PM EDT 3 mL Inhalation active 3 mL, Inhalation, Once as needed, shortness of breath, Starting on Kendra 11/19/20 at 1320, For 1 dose, PACU (only) [facility] Medication administered onsite fentaNYL Citrate (PF) (SUBLIMAZE) injection 25 mcg [id number] 11/19/2020 01:20:51 PM EDT 25 ug Intravenous active 25 mcg, Intravenous, Every 5 min PRN, moderate pain (4 to 6), Starting on Kendra 11/19/20 at 1320, For 5 doses, PACU (only) [facility] Medication administered onsite 10 ML Atropine [...] or 0.04 mg/kg. Max of 6 doses
[facility] Medication administered onsite protamine injection [id number] 11/19/2020 12:33:22 PM EDT active As needed, Starting on Kendra 11/19/20 at 1233, Intra-Proc edure [facility] Medication administered onsite 1 ML heparin sodium, porcine 1000 UNT/ML Injection hep mikael (porcine) injection heparin (porcine) injection 11/19/2020 12:01:54 PM EDT active As needed, Starting on Kendra 11/19/20 at 1201, Intra-Procedure [facility] Medication administered onsite lidocaine (PF) (XYLOCAINE-MPF) 1 % injection [id number] 03/2021 11:55:13 AM EDT active As needed, Start ing on Kendra 11/19/20 at 1155, Intra-Procedure [facility] Medication administered onsite 24 HR metoprolol succinate 100 MG Extended Release Ora l Tablet Metoprolol Succinate ER 08/28/2020 12:00:00 AM EDT ORAL completed [facility] ([facility]) Omeprazole 20 MG Delayed Release Oral Capsule Omeprazole 08/03/2020 12:00:00 AM EST ORAL active [facility] ([facility] Metoprolol Tartrate 50 MG Oral Tablet Metoprolol Tartrate 12:00:00 AM EST ORAL completed [facility] ([facility]) rivaroxaban 20 MG Oral Tablet [Xarelto] Xarelto 06/14/2020 12:00:0 0 AM EST ORAL active [facility] ([facility] rivaroxaban 20 MG Oral Tablet rivaroxaban (XARELTO) 20 MG TABS rivaroxaban (XARELTO) 20 MG TABS 03/24/2020 12:00:00 AM EDT 20 mg Oral active Take 1 tablet (20 mg total) by mouth daily To start after procedure --discharge nurse to inform when to start. [facility] Insurance Providers Payer name Policy type / Coverage type Policy ID Covered alliance party ID Covered alliance party's relationship to lópez Policy López Plan Information [id number] [phone] [id number] Ashley [id number] Ashley [id number] Ashley [id number] INSURANCE COVID-19 COVID Ashley C OVID INSURANCE COVID-19 [id number] [facility] ([facility]) [id number] Self [id number] [facility] HUMANA - O/P [id number] 18 [id number] [facility] - PHYSICIAN [id number] 18 [id number] [facility] D[facility] [id number] SP [id number] [facility] ([facility]) [id number] Self [id number] [facility] ACTIVE DUTY [id number] SP [id number] Problems, Conditions, and Diagnoses Code Display Name Description Problem Type Effective Dates Data Source(s) Z7901 [facility]CI (current) use of anticoagulant s [facility] (current) use of anticoagulants Diagnosis 02/23/2021 08:45:00 AM EDT [facility] [id number] Nicotine dependence, cigarettes, uncompl icated Nicotine dependence, cigarettes, uncomplicated Diagnosis 02/23/2021 08:45:00 AM EDT [facility] R9431 Abnormal electrocardiogram [ECG] [EKG] A bnormal electrocardiogram [ECG] [EKG] Diagnosis 02/23/2021 08:45:00 AM EDT [facility] R002 Palpitations Palpitations Diagnosis 02/23/2021 08:45:00 [facility] M5442 Lumbago with sciatica, left side Lumbago with sc iatica, left side Diagnosis 02/23/2021 08:45:00 AM EDT [facility] M545 Low back pain Low back pain Diagnosis 02/23/2021 08:45:00 AM [facility] A40751 Unspecified place in unspeci fied non-institutional (private) residence as the place of occurrence of the external cause Unspecified place in unspecified non-institutional (private) residence as the place of occurrence of the external cause Diagnosis 01/17/2021 02:19:00 PM EDT [facility] [id number] Fall (on) (from) unspecified stairs and steps, initial encounter Fall (on) (from) unspecified stairs and steps, initial encounter Diagnosis 01/17/2021 02:19:00 PM EDT [facility] M5416 Radiculopathy, lumbar region Radiculopathy, lumbar reg ion Diagnosis 01/17/2021 02:19:00 PM EDT [facility] [id number] Personal history of nicotine dependence Personal history of nicotine dependence Diagnosis 01/12/2021 11:26:00 AM EDT [facility] G8929 Other chronic pain Other chronic pain Diagnosis 08/2020 11:26:00 AM EDT [facility] I48.91 Unspecified atrial fibrillation Unspecified atri al fibrillation Diagnosis 12/23/2020 03:35:03 PM EDT [facility] I48.0 Paroxysmal atrial fibrillation Paroxysmal atrial fibri llation Diagnosis 12/10/2020 11:07:56 AM EDT [facility] U07.1 COVID-19 COVID-19 Diagnosis 11/16/2020 12:00:00 AM ED T [facility] [id number] Lumbosacral radiculopathy Lumbosacral radiculopathy Pr oblem 02/01/2021 12:00:00 AM EDT [facility] ([facility]) [id number] Chronic low back pain Chronic low back pain Problem 02/01/2021 12:00:00 AM EDT [facility] ([facility]) I48.91 Atrial fibrillation Atrial fibrillation [id number] 09/29/2020 12:00:00 AM EDT [facility] R06.02 Dyspnea Dyspnea Problem 08/03/2020 12:00:00 AM ES T [facility] ([facility]) R55 Syncope and collapse Syncope and collapse Problem 06/15/2020 12:00:00 AM EST [facility] ([facility]) R07.2 Precordial pain Precordial pain Problem 06/15/2020 12:0 0:00 AM EST [facility] ([facility]) Surgeries/Procedures Procedure Description Date Indications Data Source(s) Implantable Loop Recorder System, Review And Report 04/15/2021 12:00:00 AM EDT [facility] ([facility]) ECG ROUTINE ECG W/LEAST 12 LDS W/I&R 03/25/2021 12:00: 00 AM EDT [facility] ([facility]) OFFICE OUTPATIENT VISIT 25 MINUTES 03/25/2021 12:00:00 AM EDT [facility] ([facility]) Implantable Loop Recorder System, Review And Report 03/12/2021 12:00:00 AM EDT [facility] ([facility]) Implantable Loop Recorder System, Review And Report 02/08/2021 12:00:00 AM EDT [facility] ([facility]) Needle electromyography, each extremity, with related paraspinal areas, when performed, done with nerve conduction, amplitude and latency/velocity study; complete, five or more muscles studied, innervated by three or more nerves or four or more spinal levels (list separately in addition to the code for primary procedure). 02/03/2021 12:00:00 AM EDT MED[facility] T ([facility] ) Needle electromyography, each extremity, with related paraspinal areas, when performed, done with nerve conduction, amplitude and latency/velocity study; complete, five or more muscles studied, innervated by three or more nerves or four or more spinal levels (list separately in addition to the code for primary procedure). 02/03/2021 12:00:00 AM EDT [facility] T ([facility] ) 55281 Nerve conduction studies 13 or more studies NEW 201202/03/2021 12:00:00 AM EDT [facility] ([facility] X-Ray Spine Lumbosacral Bending Only 2 Or 3 Views 01/18/2021 12:00:00 AM EDT [facility] ([facility] OFFICE OUTPATIENT NEW 45 MINUTES 01/18/2021 12:00:00 A M EDT [facility] ([facility] ) Implantable Loop Recorder System, Review And Report 01/06/2021 12:00:00 AM EDT MEDKATH[facility]N ([facility]) Implantable Loop Recorder System, Review And Report 12/03/2020 12:00:00 AM EDT BARTOLOME ([facility]) EP STUDY <td>EP STUDY</td><td>Routine </td><td>11/19/2020 12:32 PM EDT</td><td> Atrial fibrillation, unspecified type</td><td></td> 11/19/2020 12:32:27 PM EDT Atrial fibrillation, unspecified type [facility] Atrial fibrillation, unspecified type ECG ROUTINE ECG W/LEAST 12 LDS TRCG ONLY W/O I&R <td>E CG 12- LEAD</td><td>Routine</td><td>11/16/2020 9:11 AM EDT</td><td> Atrial fibrillation, unspecified type</td><td></td> 11/16/2020 09:11:02 AM EDT Atrial fibrillation, unspecified type [facility] Atrial fibrillation, unspecified type BLOOD COUNT COMPLETE AUTOMATED <td>CBC</td><td>Routine </td><td>11/16/2020 9:10 AM EDT</td><td> Atrial fibrillation, unspecified type</td><td> </td> 11/16/2020 09:10:00 AM EDT Atrial fibrillation, unspecified type [facility] Atrial fibrillation, unspecified type BLOOD TYPING ABO <td>TYPE AND SCREEN</td><td> Routine</td><td>11/16/2020 9:10 AM EDT</td><td> Atrial fibrillation, unspecified type</td><td> </td> 11/16/2020 09:10:00 AM EDT Atrial fibrillation, unspecified type [facility] Atrial fibrillation, unspecified type BASIC METABOLIC PANEL CALCIUM TOTAL <td>BASIC METABOLI C PANEL</td><td>Routine</td><td>11/16/2020 9:10 AM EDT</td><td> Atrial fibrillation, unspecified type</td><td> </td> 11/16/2020 09:10:00 AM EDT Atrial fibrillation, unspecified type [facility] Atrial fibrillation, unspecified type Implantable Loop Recorder System, Review And Report 10/27/2020 12:00:00 AM EDT [facility] ([facility]) Implantable Loop Recorder System, Review And Report 09/24/2020 12:00:00 AM EDT [facility] ([facility]) OFFICE OUTPATIENT VISIT 15 MINUTES 08/11/2020 12:00:00 AM EST [facility] ([facility]) OFFICE OUTPATIENT VISIT 15 MINUTES 08/03/2020 12:00:00 AM EST [facility] [facility]) XTRNL ECG < 48 HR RECORDING 07/20/2020 12:00:00 AM EST [facility] ([facility]) XTRNL ECG CONTINUOUS RHYTHM PHYS REVIEW&INTERPJ 2020 12:00:00 AM EST [facility] ([facility]) ECHO TTHRC R-T 2D W/WOM-MODE COMPL SPEC&COLR DOP 07/16 12:00:00 AM EST [facility] ([facility]) CV STRS TST XERS&/OR RX CONT ECG PHYS SI&R 07/09/2020 12:00:00 AM EST [facility] ([facility]) ECG ROUTINE ECG W/LEAST 12 LDS W/I&R 06/15/2020 12:00: 00 AM EST [facility] ([facility]) OFFICE OUTPATIENT VISIT 25 MINUTES 06/15/2020 12:00:00 AM EST [facility] ([facility]) ECG ROUTINE ECG W/LEAST 12 LDS W/I&R 03/16/2020 12:00: 00 AM EDT [facility] ([facility]) Results ID Date Data Source [id number] 03/03/2021 12:34:28 PM [facility]T [facility] [place] NT INFORMATIONPatient MRN Name Date of Age Gend*PT [id number] Gallito Hinojosa 1995 26 years M ---PT Location Admission Date/Time Visit ID Attending Provider --- --- --- --- EPI ID CSN Admitting Provider [id number] ---[facility] [id number] [facility], [address] (First Floor)[place], [place] [address]Ke.: Fax: Katient: Gallito Camargo : 1995Date: 03/03/21CARDIOLOGY TELEMEDICINE VISITPatient was identified by name and date of .Verbal consent was obtained from the patient for this telemedicine visit.Patient is aware of the risks, limitations, and benefits of a telemedicinevisit.This telemedicine assessment was conducted remotely with the assistance of[employer] communication technology. Telephone Only Codes 87067: 21-30 minutesof medical discussion: Telephone Only .Subjective:Gallito [...] benefitsFollow Up 6 monthsSignature: Ward Durán MD, [facility]ENTERCardiac Electrophysiology and Arrhythmia ServiceDate: March 03, 2021Time: 12:29 PMThis document or parts of this document, were dictated using [employer]. A reasonable attempt at proofreading has been made to minimize errors.Please call with any questions or corrections. Name Value Range Interpretation Code Description Data Sera rce(s) Supporting Document(s) ID Date Data Source [id number] 02/23/2021 08:07:00 [place] [address] RESPIRATORY CARE REPORT ==== ---------NAME------- NUMBER SEX AGE ADMIT DISC. XRAY# F/C TYPEMARY GALLITO Orta [id number] M 26 02/23/21 02/23/21 [id number] SB4 E/R DATE OF : 1995 M/R# [id number] #: [phone] VT-04 LOCATION: EMERGENCY DEPT EKG 34092 COMP LETE:02/23/21 15:13 [place] [address] PHYSICIAN: ANDREE Gallagher Name Value Range Interpretation Code Description Data Sera rce(s) Supporting Document(s) ID Date Data Source [id number] 02/23/2021 08:45:00 AM EDT [facility] 1 OrderSheet [facility] Emergency Department [address] [place] [address] Phone #: ext- [phone] 02/23/2021 08:44 Patient: GALLITO HERNANDEZ Sex: M : 1995 Age: 26yWEIGHT:73.4 kg (S) HEIGHT:67 inches (S) BMI:25.4ALLERGIES: La Pointe (Diagnostic), Avocado (Diagnostic)CHIEF COMPLAINT: back pain, chronic [...] rce(s) Supporting Document(s) ID Date Data Source [id number] 02/23/2021 08:45:00 AM EDT [facility] 1 Medication Reconciliation Report [facility] Emergency Department [address] [place] [address] Phone #: ext- [phone] 02/23/2021 08:44 Patient: GALLITO HERNANDEZ Sex: M : 1995 Age: 26yWeight: 73.4 kgHeight/Length: 67 in.BMI: 25.4ALLERGIES: La Pointe (Diagnostic), Avocado (Diagnostic)The patient's Home Medications are [...] rce(s) Supporting Document(s) ID Date Data Source [id number] 02/23/2021 08:45:00 AM EDT [facility] 1 Medication Administration Record [facility] Emergency Department [address] [place] [address] Phone #: ext [phone] 02/23/2021 08:44 Patient: GALLITO HERNANDEZ Sex: M : 1995 Age: 26yWeight: 73.4 kgHeight/Length: 67 inBMI: 25.4ALLERGIES: La Pointe (Diagnostic), Avocado (Diagnostic) Date/Time Medication Administered Medication OrderedGiven LIDODERM PATCH (LIDOCAINE) Lidoderm Patch Topical (Patch 509:42 02/23/2021 Dose: 1 patch Ointment Transdermal %) 1 Patch (NOW x1, On for 12Terry LILI Sampson hours, off for 12 hours.)Given MOTRIN [PO] (IBUPROFEN) Motrin 600 mg PO X1 dose: 33757:42 02/23/2021 Dose: 600 mg Tablets PO mg (NOW x1)Hema Sampson RN Name Value Range Interpretation Code Description Data Sera rce(s) Supporting Document(s) ID Date Data Source [id number] 02/23/2021 08:45:00 AM EDT [facility] 1 General Instructions [facility] Emergency Department [address] [place] [address] Phone #: ext- [phone] 02/23/2021 08:44 Patient: [...] verbalized by patient.Follow- up with: [facility], , , [address] [place] [address], , [place], [address] Follow up in three days if not well. Call for an appointment. Reason for referral: evaluation. ADDITIONAL INFORMATIONSciatica 2 General Instructions [facility] Emergency Department [address] [place] [address] Phone #: ext- [phone] 02/23/2021 08:44 Patient: [...] for yourself at home: 3 General Instructions [facility] Emergency Department [address] [place] [address] Phone #: ext- [phone] 02/23/2021 08:44 [id number] Sex: M : 1995 Age: 26y As [...] swelling over your back or spine [employer] [address] [place] [address], [place] [address]. All rights reserved. This information is not intended as asubstitute for professional medical care. Always follow your healthcare professional's instructions. 4 General Instructions [facility] Emergency Department [address] [place] [address] Phone #: ext- [phone] 02/23/2021 08:44 Patient: [...] muscle (cardiomyopathy) Coronary artery disease High blood xjhncmhsJkj-evokc-faoehfs causes: Certain medicines such as asthma inhalers and decongestants Some herbal supplements, energy drinks and pills, and weight loss pills 5 General Instructions [facility] Emergency Department [address] [place] [address] Phone #: ext- [phone] 02/23/2021 08:44 Patient: [...] Tell your doctor about any prescription or fbrk-jpz-ppuwnql or herbal medicines you take.Follow-up care Follow [...] to seek medical advice 6 General Instructions [facility] Emergency Department [address] [place] [address] Phone #: ext- [phone] 02/23/2021 08:44 Patient: GALLITO HERNANDEZ Sex: M : 1995 Age: 26yCall your healthcare provider right away if you have palpitations that last longer than normal, or aredifferent from your past palpitations. [phone] [employer] [address] [place] [address], [place] [address]. All rights reserved. This information is not intended as asubstitute for professional medical care. Always follow your healthcare professional's instructions. You have been given the following additional information: Sciatica Palpitations(Electronically signed by Rodney Bermudez 02/23/2021 11:16) Name Value Range Interpretation Code Description Data Sera rce(s) Supporting Document(s) ID Date Data Source [id number] 02/23/2021 08:45:00 AM EDT [facility] 1 Clinical Report - Nurses [facility] Emergency Department [address] [place] [address] Phone #: ext- [phone] 02/23/2021 08:44 Patient: [...] tingling, trouble walking orfever. No extremity pain.Treatment MANAGER OF TRANSPORTATION:None.SEPSIS SCREEN: SIRS SCREEN NEGATIVE. SEPSIS SCREEN NEGATIVE. [...] Sampson RN.AllergiesAlmond (Diagnostic).Avocado (Diagnostic). --09:02/23/21 Hema Sampson RN.Akvzjoy32:02/23/21.PAST MEDICAL HX: Heart disease.SOCIAL HX: Smoker- current status unknown (1/2 ppd). No alcohol use or drug use. He was offeredHIV testing but declined and hepatitis C testing but declined. He has not traveled outside the [place]Infectious disease exposure: No infectious disease exposure. 2 Clinical Report - Nurses [facility] Emergency Department [address] [place] [address] Phone #: ext- [phone] 02/23/2021 08:44 Patient: [...] patient. To room. --09:02/23/21 Hema Sampson RN.PHYSICAL [id number]:02/23/21. Ambulatory to room.GENERAL / NEURO / PSYCH: [...] Sampson RN 3 Clinical Report - Nurses [facility] Emergency Department [address] [place] [address] Phone #: ext- [phone] 02/23/2021 08:44 Patient: GALLITO HERNANDEZ Sex: M : 1995 Age: 26y 09:42 02/23/2021 Lidoderm Patch (Lidocaine) Transdermal Ointment 1 patch given. Allergies verified and confirmed 5 rights. Information reviewed with bert ent. --09:42 02/23/21 Hema Sampson RN 09:42 02/23/2021 Motrin (Ibuprofen) PO Tablets 600 mg given. Allergies verified and confirmed 5 rights. Information reviewed with patient. --09:42 02/23/21 Hema Sampson RN.DISPOSITION / DISCHARGE 09:44 02/23/21. BP: 133/87. HR: 64. RR: 16. O2 saturation: 100%. Temp: 98.1 F. Pain level now 02/19. --09:45 02/23/21 [facility] 09:55 02/23/21. Departure time: 09:55 02/23/2021. Condition at departure: unchanged. No learning barriers present. Discharge instructions provided and reviewed with the patient. Reviewed medication(s) (no changes). Reviewed rest and ice instructions. Reviewed referrals. Provided to follow-up provider. Patient verbalized understanding. Written instructions provided in Italian. The patient was discharged by the physician. He was discharged home. He left ambulatory and via private vehicle. Patient driving. --:02/23/21 Hema Sampson RN.Locked/Released at 02/23/2021 12:00 by Hema Sampson RN Name Value Range Interpretation Code Description Data Sera rce(s) Supporting Document(s) ID Date Data Source [id number] 02/23/2021 08:45:00 AM EDT [facility] 1 Clinical Report - Physicians/Mid Levels [facility] Emergency Department [address] [place] [address] Phone #: ext- [phone] 02/23/2021 08:44 Patient: [facility]ALLITO [id number] Sex: M : 1995 Age: 26y Time [...] Xarelto Oral (Tablet 20 mg), daily. Allergies: La Pointe (Diagnostic). 2 Clinical Report - Physicians/Mid Levels [facility] Emergency Department [address] [place] [address] Phone #: ext- [phone] 02/23/2021 08:44 Patient: GALLITO HERNANDEZ Sex: M [...] stable. 3 Clinical Report - Physicians/Mid Levels [facility] Emergency Department [address] [place] [address] Phone #: ext- [phone] 02/23/2021 08:44 Patient: GALLITO HERNANDEZ Sex: M [...] verbalized by patient. Follow-up with: [facility], , , [address] [place] [address], [address] Follow up in three days if not well. Call for an appointment. Reason for referral: evaluation.(Electronically signed by Rodney Bermudez 02/23/2021 11:16) Name Value Range Interpretation Code Description Data Sera rce(s) Supporting Document(s) ID Date Data Source [id number] 02/12/2021 12:00:00 AM EDT [facility] Name Value Range Interpretation Code Description Data Sera rce(s) Supporting Document(s) PCR NEGATIVE [facility] This lab was ordered by [facility] are and reported by [facility]. ID Date Data Source [id number] 01/17/2021 06:32:00 PM EDT [facility] [address] [place] [address] PHONE: [phone] FAX: [phone] Name .................. : MARY Orta Acct Number.................. : [id number] ROOM. ................. : VT-19 MR Number ................... : [id number] Stay type ............. : E/R Discharge Date......... ... : Admit Date ......... : 01/17/21 Admit Phys .................... : ANDREE Gallagher Date of ....... : 1995 Family Phys ................... : UNKNOWN CO Phone .................. : [phone] Age ................................ : 26 Film# .................. .:[id number] Sex ................................. : M Unsigned transcriptions are preliminary reports and do not represent a medical or legal document CT LUMBAR SP W/O CONT 16016 COMPLETE:01/17/21 16:54 42703 Reason(s): fell down stairs, acute on chronic [...] 01/17/21 18:32, JWS Page 1 of [address] [place] [address] PHONE: [phone] FAX: [phone] Name .................. : MARYBRIDGER ZENDEJAS You Acct Number.................. : [id number] ROOM. ................. : VT-19 MR Number ................... : [id number] Stay type ............. : E/R Discharge Date......... ... : Admit Date ......... : 01/17/21 Admit Phys .................... : ANDREE Gallagher Date of ....... : 1995 Family Phys ............ ....... : UNKNOWN CO Phone .................. : [phone] Age ................................ : 26 Film# .................. .:[id number] Sex ................................. : M Unsigned transcriptions are preliminary reports and do not represent a medical or legal document CT LUMBAR SP W/O CONT [id number] COMPLETE:01/17/21 16:54 42068 Reason(s): fell down stairs, acute on chronic LBP Transcribe Initials: TAWANNA , Transcribe Date: 01/17/21 17:50, Dictation Date: Copy for: BURKE Crandall via fax Copy for: EMERGENCY DEPT via modem Copy for: 710 MED REC DISCHARGED Page 2 of 2 Name Value Range Interpretation Code Description Data Sera rce(s) Supporting Document(s) ID Date Data Source [id number] 01/17/2021 02:19:00 PM EDT [facility] 1 OrderSheet [facility] Emergency Department [address] [place] [address] Phone #: ext- [phone] 01/17/2021 13:55 Patient: GALLITO HERNANDEZ Sex: M : 1995 Age: 26yWEIGHT:73.4 kg (S) HEIGHT:67 inches (S) BMI:25.4ALLERGIES: La Pointe (Diagnostic), Avocado (Diagnostic)CHIEF COMPLAINT: fall, -3-, down [...] rce(s) Supporting Document(s) ID Date Data Source [id number] 01/17/2021 02:19:00 PM EDT [facility] 1 Medication Reconciliation Report [facility] Emergency Department [address] [place] [address] Phone #: ext- [phone] 01/17/2021 13:55 Patient: GALLITO HERNANDEZ Sex: M : 1995 Age: 26yWeight: 73.4 kgHeight/Length: 67 in.BMI: 25.4ALLERGIES: La Pointe (Diagnostic), Avocado (Diagnostic)The patient's Home Medications are [...] Dispense6 tablet. Refills: 0. Substitution permitted.Pharmacy - [facility] [address] ; [place] [address]. . -- MARYAN Velasco Name Value Range Interpretation Code Description Data Sera rce(s) Supporting Document(s) ID Date Data Source [id number] 01/17/2021 02:19:00 PM EDT [facility] 1 Medication Administration Record [facility] Emergency Department [address] [place] [address] Phone #: ext- [phone] 01/17/2021 13:55 Patient: GALLITO HERNANDEZ Sex: M : 1995 Age: 26yWeight: 73.4 kgHeight/Length: 67 inBMI: 25.4ALLERGIES: La Pointe (Diagnostic), Avocado (Diagnostic) Date/Time Medication Administered Medication OrderedGiven MORPHINE [IM] Morphine IM 4 mg (NOW x1, HIGH17:04 01/17/2021 Dose: 4 mg IM ALERT MEDICATION)Hema Sampson RNGiven ZOFRAN ODT [PO] (ONDANSETRON Zofran ODT PO 4 mg (NOW x1)17:05 01/17/2021 HCL)Hema Sampson RN Dose: 4 mg Oral Disintegrating Tablets PO Name Value Range Interpretation Code Description Data Sera rce(s) Supporting Document(s) ID Date Data Source [id number] 01/17/2021 02:19:00 PM EDT [facility] 1 General Instructions [facility] Emergency Department [address] [place] [address] Phone #: ext- [phone] 01/17/2021 13:55 Patient: GALLITO HERNANDEZ Sex: M [...] Dispense6 tablet. Refills: 0. Substitution permitted.Pharmacy - [facility] [address] ; [place] [address]. .Understanding of the discharge instructions verbalize d by patient. Expected course of injury, dischargeinstructions, activity level, prescriptions x1, follow-up appointment and risks and benefits of treatmentreviewed with patient and understanding verbalized. Agrees to plan of care.Follow-up with: [facility], , , [address] [place] [address], , [place], [address] Follow up in one day even if well. Call for the next available appointment. Reason for referral: evaluationand recommend MRI LS spine and referral to ortho spine . Summary of care provided to patient via paper. ADDITIONAL INFORMATION 2 General Instructions [facility] Emergency Department [address] [place] [address] Phone #: ext- [phone] 01/17/2021 13:55 Patient: GALLITO HERNANDEZ Sex: M [...] howsevere your symptoms are. 3 General Instructions [facility] Emergency Department [address] [place] [address] Phone #: ext- [phone] 01/17/2021 13:55 --- [...] your back or spine 4 General Instructions [facility] Emergency Department [address] [place] [address] Phone #: ext- [phone] 01/17/2021 13:55 Patient: GALLITO HERNANDEZ Sex: M : 1995 Age: 26y [phone] [employer] [place], [place] [address]. All rights reserved. This information is not [...] provider before using these 5 General Instructions [facility] Emergency Department [address] [place] [address] Phone #: ext- [phone] 01/17/2021 13:55 Patient: [...] the reading, especially if it affects treatment.Call [phone] [phone] if any of these happen: 6 General Instructions [facility] Emergency Department [address] [place] [address] Phone #: ext- [phone] 01/17/2021 13:55 Patient: [...] in vomit, stools (black or red color) [phone] [employer] [address] [place] [address], [place] [address]. All rights reserved. This information is not [...] in poorly lit areas. 7 General Instructions [facility] Emergency Department [address] [place] [address] Phone #: ext- [phone] 01/17/2021 13:55 Patient: [...] sidewalks. If your balance is poor, con dietetic tech using a cane or walker. If your [...] could make you more likely to fall. [phone] [employer] [address] [place] [address], [place] [address]. All rights reserved. This information is not intended as asubstitute for professional medical care. Always follow your healthcare professional's instructions. You have been given the following additional information: Sciatica Mechanical Fall Fall Prevention 8 General Instructions [facility] Emergency Department [address] [place] [address] Phone #: ext- [phone] 01/17/2021 13:55 Patient: GALLITO HERNANDEZ Sex: M : 1995 Age: 26yNo strenuous activity until better.(Electronically signed by MARYAN Velasco 01/17/2021 18:46) Name Value Range Interpretation Code Description Data Sera rce(s) Supporting Document(s) ID Date Data Source [id number] 01/17/2021 02:19:00 PM EDT [facility] 1 Clinical Report - Nurses [facility] Emergency Department [address] [place] [address] Phone #: ext- [phone] 01/17/2021 13:55 Patient: [...] bladder.). The patient has had trouble walking.Treatment MANAGER OF TRANSPORTATION:Seen within the last 30 days in the [...] Joaquin R.N.AllergiesAvocado (Diagnostic). --14:13 01/17/21 [place] Joaquin R.N.La Pointe (Diagnostic). --14:14 01/17/21 [place] Joaquin R.N.PROBLEMS:Depression. --14:15 01/17/21 [place] Joaquin R.N.Back Pain.Atrial Fibrillation. --16:48 01/17/21 MRAYAN Velasco 2 Clinical Report - Nurses [facility] Emergency Department [address] [place] [address] Phone #: ext- [phone] 01/17/2021 13:55 Patient: [...] in pain. 3 Clinical Report - Nurses [facility] Emergency Department [address] [place] [address] Phone #: ext- [phone] 01/17/2021 13:55 Patient: [...] RR: 16. O2 saturation: 99%. --17:11 01/17/21 [place] studio technician, Cecilia, ER Tech1 Patient transported to CT by wheelchair with mask and resident physician in radiology. (1720). --17:31 01/17/21 Hema Sampson RN Patient returned from CT by wheelchair with mask and resident physician in radiology. (1731). --17:33 01/17/21 Hema Sampson RN 18:16 01/17/21. BP: 114/83. HR: 84. RR: 16. O2 saturation: 100%. --18:16 01/17/21 [place] studio technician, Cecilia, Tech1.DISPOSITION / DISCHARGE 17:49 01/17/21. Departure time: 17:49 01/17/2021. Transferred. Provided to EMS ([facility]). Transported via ambulance by supervisor shaving and splitting. Report was given to a nurse via [...] now 10/19. 4 Clinical Report - Nurses [facility] Emergency Department [address] [place] [address] Phone #: ext- [phone] 01/17/2021 13:55 Patient: GALLITO HERNANDEZ Sex: M : 1995 Age: 26y --18:18 01/17/21 [facility] Tech, [place] [address] Departure time: 18:24 01/17/2021. --18:24 01/17/21 Balbina Ramirez RN Condition at departure: stable. No learning barriers present. Discharge instructions provided and reviewed with the patient. Reviewed medication(s) side effects, precautions, dosing and course information. Prescription(s) sent electronically to pharmacy. Reviewed referral to a primary care physician. Patient verbalized understanding. Written instructions provided in Italian. The patient was discharged by the physician processing assistant. He was discharged home and accompanied by spouse. He left ambulatory and via private vehicle. Spouse driving. --18:26 01/17/21 Balbina Ramirez RN.Locked/Released at 01/17/2021 18:26 by Balbina Ramirez RN Name Value Range Interpretation Code Description Data Sera rce(s) Supporting Document(s) ID Date Data Source [id number] 01/17/2021 02:19:00 PM EDT [facility] 1 Clinical Report - Physicians/Mid Levels [facility] Emergency Department [address] [place] [address] Phone #: ext- [phone] 01/17/2021 13:55 Patient: GALLITO HERNANDEZ Sex: M [...] Loop recorder. Medications: 2 Clinical Report - Physicians/[facility] Emergency Department [address] [place] [address] Phone #: ext- [phone] 01/17/2021 13:55 Patient: GALLITO HERNANDEZ Sex: M : 1995 Age: 26y Metoprolol Succinate ER Oral (Tablet Extended Release 24 Hour 100 mg), daily. Xarelto Oral (Tablet 20 mg), daily. Allergies: La Pointe (Diagnostic). Avocado (Diagnostic).SOCIAL HISTORYSmoker- current status unknown. [...] is 3 Clinical Report - Physicians/Mid Levels [facility] Emergency Department [address] [place] [address] Phone #: ixp- [phone] 01/17/2021 13:55 Patient: GALLITO HERNANDEZ Sex: M [...] tablet. Refills: 0. Substitution permitted. Pharmacy - [facility] [address] ; [place] [address]. . Understanding of the discharge instructions verbalized by patient. Expected course of injury, discharge instructions, activity level, prescriptions x1, follow-up appointment and risks and benefits of treatment reviewed with patient and understanding verbalized. Agrees to plan of care. Follow-up with: [facility], , , [address] [place] [address], , [place], [address] Follow up in one day even if well. Call for the next available appointment. Reason for referral: evaluation and recommend MRI LS spine and referral to ortho spine . Summary of care provided to patient via paper. 4 Clinical Report - Physicians/Mid Levels [facility] Emergency Department [address] [place] [address] Phone #: ext- [phone] 01/17/2021 13:55 Patient: GALLITO HERNANDEZ Sex: M : 1995 Age: 26y(Electronically signed by MARYAN Velasco 01/17/2021 18:46) Name Value Range Interpretation Code Description Data Sera rce(s) Supporting Document(s) ID Date Data Source [id number] 01/12/2021 11:26:00 AM EDT [facility] [facility] OrderSheet [facility] Emergency Department [address] [place] [address] Phone #: [phone] hbn- [phone] 01/12/2021 11:19 Patient: GALLITO MONTGOMERY Sex: M [...] rce(s) Supporting Document(s) ID Date Data Source [id number] 01/12/2021 11:26:00 AM EDT [facility] 1 Medication Reconciliation Report [facility] Department [address] [place] [address] Phone #: ext- [phone] 01/12/2021 11:19 Patient: [...] Dispense 30 tablet. Refills:0. Substitution permitted.Pharmacy - [facility] [address] [facility] ; [place] [address]. .prednisone 10 mg tablet Take 4 tablet once a day for 10 days -- x 2 days then 3 tabs daily x 2 daysthen 2 tabs daily x 2 days then 1 tab daily x 2 days. Dispense 30 tablet. Refills: 0. Substitution permitted.Pharmacy - [facility] [address] [facility] ; [place] [address]. . 2 Medication Reconciliation Report [facility] Department [address] [place] [address] Phone #: ext- [phone] 01/12/2021 11:19 Patient: GALLITO MONTGOMERY Sex: M : 1995 Age: 26yPercocet 5 mg-325 mg tablet Take 1 tablet four times a day for 3 days -- as needed for pain. Myorptfz50 tablet. Refills: 0. Substitution permitted.Pharmacy - [facility] [id number] ; [place] [address]. . -- Giorgi Menjivar Name Value Range Interpretation Code Description Data Sera rce(s) Supporting Document(s) ID Date Data Source [id number] 01/12/2021 11:26:00 AM EDT [place] [address] Medication Administration Record [facility] Department [address] [place] [address] Phone #: ext- [phone] 01/12/2021 11:19 Patient: GALLITO MONTGOMERY Sex: M [...] rce(s) Supporting Document(s) ID Date Data Source [id number] 01/12/2021 11:26:00 AM EDT [facility] 1 General Instructions [facility] Department [address] [place] [address] Phone #: ext- [phone] 01/12/2021 11:19 Patient: [...] Dispense 30 tablet. Refills:0. Substitution permitted.Pharmacy - [facility] [address] - [address] [facility] ; [place] [address]. .prednisone 10 mg tablet Take 4 tablet once a day for 10 days -- x 2 days then 3 tabs daily x 2 daysthen 2 tabs daily x 2 days then 1 tab daily x 2 days. Dispense 30 tablet. Refills: 0. Substitution permitted.Pharmacy - [facility] [employer] [address] [facility] ; [place] [id number]. .Percocet 5 mg-325 mg tablet Take 1 tablet four times a day for 3 days -- as needed for pain. Sqcseruj95 tablet. Refills: 0. Substitution permitted.Pharmacy - [facility] [address] ; [place] [address]. .Follow-up: Follow up with your healthcare provider in three days if not better. Reason for referral: evaluation.Summary of care provided to patient via paper. Screening today revealed the patient's blood pressure indra in the hypertensive stage 2 range. The patient should follow up with a primary care provider for bloodpressure management. ADDITIONAL INFORMATION 2 General Instructions [facility] Department [address] [place] [address] Phone #: ext- [phone] 01/12/2021 11:19 Patient: ULISES GALLITO Orta Violeta RN: [id number] [id number] Sex: M : 1995 Age: 26ySciaticaSciatica is [...] howsevere your symptoms are. 3 General Instructions [facility] Emergency Department [address] [place] [address] Phone #: ext- [phone] 01/12/2021 11:19 Patient: [...] your back or spine 4 General Instructions [facility] Department [address] [place] [address] Phone #: ext- [phone] 01/12/2021 11:19 Patient: GALLITO MONTGOMERY Sex: M : 1995 Age: 26y [id number] [employer] [place] [address]. All rights reserved. This information is not intended as asubstitute for professional medical care. Always follow your healthcare professional's instructions. You have been given the following additional information: Sciatica Do not work for one day.(Electronically signed by Giorgi Menjivar 01/13/2021 03:27) Name Value Range Interpretation Code Description Data Sera rce(s) Supporting Document(s) ID Date Data Source [id number] 01/12/2021 11:26:00 AM EDT [facility] 1 Clinical Report - Nurses [facility] Emergency Department [address] [place] [address] Phone #: ext- [phone] 01/12/2021 11:19 Patient: [...] [place] had an mri done and it showed bulging discs. pt reports he has a hx of a-fib so he was notgiven medications for pain.).Triage time: 11:25 01/12/2021. Acuity: LEVEL 3.This started yesterday. Onset. (sitting at rest).Treatment MANAGER OF TRANSPORTATION:(pt states "i hate pills, so i didn't [...] Gil R.N. Xarelto Oral. --12:29 01/12/21 Monika MenjivarOkmond. --11:29 01/12/21 Hui Gil R.N.Avacado. --11:29 01/12/21 Hui Gil R.N.PROBLEMS:Spinal imginement.Bulging discs. --11:30 01/12/21 Hui Gil R.N.Loop recorder.Atrial Fibrillation. --11:34 01/12/21 Hui Gil R.N.Medication/allergy information source: the patient. --11:31 01/12/21 Hui Gil R.N.ADDITIONAL SURGERIES:Ablation X2.Loop recorder. --11:30 01/12/21 Hui Gil R.N. 2 Clinical Report - Nurses [facility] Emergency Department [address] [place] [address] Phone #: ext- [phone] 01/12/2021 11:19 Patient: [...] sinceincident 4 weeks ago when seen in [facility] ED and MRI done per patient. [...] verified and 3 Clinical Report - Nurses [facility] Department [address] [place] [address] Phone #: ext- [phone] 01/12/2021 11:19 Patient: [...] Patient transported to radiology by wheelchair with resident physician in radiology. --12:09 01/12/21 Shanda Gonsales R.N.DISPOSITION / DISCHARGE Condition at departure: improved and stable. No learning barriers present. Discharge instructions provided and reviewed with the patient. Reviewed medication(s) side effects, precautions, dosing and course information. Prescription(s) sent electronically to pharmacy. Work note given. Patient verbalized understanding. Written instructions provided in Italian. The patient was discharged by the physician. [...] rce(s) Supporting Document(s) ID Date Data Source [id number] 01/12/2021 11:26:00 AM EDT [facility] 1 Clinical Report - Physicians/Mid Levels [facility] Emergency Department [address] [place] [address] Phone #: ext- [phone] 01/12/2021 11:19 Patient: [...] bowel 1 moth ago was seen at [facility] and had an MRI which showed [...] Medications: Xarelto Oral. Alieve about 199901/11/2021. Allergies: [place]. Avacado. 2 Clinical Report - Physicians/Mid Levels [facility] Department [address] [place] [address] Phone #: ext- [phone] 01/12/2021 11:19 Patient: [facility]ALLITO MONTGOM[id number] Sex: M : 1995 Age: 26ySOCIAL HISTORYFormer [...] has 3 Clinical Report - Physicians/Mid Levels [facility] Department [address] [place] [address] Phone #: ext- [phone] 01/12/2021 11:19 Patient: GALLITO MONTGOMERY [id number] Sex: M : 1995 Age: 26y a [...] tablet. Refills: 0. Substitution permitted. Pharmacy - [facility] [address] [facility] ; [place] [address]. . prednisone 10 mg tablet Take 4 tablet once a day for 10 days -- x 2 days then 3 tabs daily x 2 days then 2 tabs daily x 2 days then 1 tab daily x 2 days. Dispense 30 tablet. Refills: 0. Substitution permitted. Pharmacy - [facility] - [id number] [facility] ; [place] [address]. . Percocet 5 mg-325 mg tablet Take 1 tablet four times a day for 3 days -- as needed for pain. Dispense 12 tablet. Refills: 0. Substitution permitted. Pharmacy - [facility] [address] ; [place] [id number]. Phone: . 4 Clinical Report - Physicians/Mid Levels [facility] Department [address] [place] [address] Phone #: ext- [phone] 01/12/2021 11:19 Patient: GALLITO MONTGOMERY Sex: M [...] rce(s) Supporting Document(s) ID Date Data Source [id number] 01/12/2021 02:58:00 [place] [address] PHONE: [phone] FAX: [phone] Name .................. : ULISES ZENDEJAS Acct Number.................. : [id number] ROOM. ................. : [place]- MR Number ................... : [id number] Stay type ............. : E/R Discharge Date......... ... : Admit Date ......... : 08/30 Admit Phys .................... : RETACO Date of ....... : 1995 Family Phys ................... : UNKNOWN CO Phone .................. : [phone] Age ................................ : 26 Film# .................. .:[id number] Sex ................................. : M Unsigned transcriptions are preliminary reports and do not represent a medical or legal document SPINE LS COMPLETE [id number] COMPLETE:01/12/21 11:40 26596 Reason(s): Lower Back Pain LUMBOSACRAL SPINE 5 [...] rce(s) Supporting Document(s) ID Date Data Source [id number] 12/10/2020 12:16:59 PM EDT [facility] [place] [facility] INFORMATIONPatient MRN Name Date of Age Gend*PT [id number] Gallito Hinojosa 1995 25 years M ---PT Location Admission Date/Time Visit ID Attending Provider --- --- --- --- EPI ID CSN Admitting Pro vider [id number] ---Cardiology Office VisitSubjectiveChief Complaint: Status post atrial [...] of having procedure completed [facility] due tonausea, vomiting, and diarrhea. He [...] Social Gatherings with Friends and Family: Attends Yazidi Services: Active Member of Clubs or Organizations: Attends Club or Organization Meetings: Marital Status:Intimate Partner Violence: Fear of Current or Ex-Partner: Emotionally Abused: Physically Abused: Sexually Abused:Medications and AllergiesAllergiesAllergen Reactions [place] Meal Anaphylaxis Avocado AnaphylaxisCurrent Outpatient MedicationsMedication Sig [...] NEGATIVE Final Testing site 11/16/2020 PERFORMED AT [address] [place] [address] Blood bank comment 11/16/2020 SEE NOTES Final [...] sinus rhythm. [facility] Patient will call the office if [...] rce(s) Supporting Document(s) ID Date Data Source [id number] 11/30/2020 11:12:00 AM EDT [facility] Name Value Range Interpretation Code Description Data Sera rce(s) Supporting Document(s) Albumin [Mass/volume] in Serum or Plasma 4.0 [facility] ([facility]) Alanine aminotransferase [Enzymatic activity/volume] in Serum or Pl asma 32 [facility] ([facility]) Calcium [Mass/volume] in Serum or Plasma 9.5 [facility] ([facility]) Alkaline phosphatase [Enzymatic activity/volume] in Serum or Plasma 7 4 [facility] ([facility]) Carbon dioxide, total [Moles/volume] in Serum or Plasma 30 [facility] ([facility]) Chloride [Moles/volume] in Serum or Plasma 104 [facility]) Potassium [Moles/volume] in Serum or Plasma 4.1 [facility] ([facility]) Protein [Mass/volume] in Serum or Plasma 7.6 [facility] ([facility]) Sodium 137 [facility] Aspartate aminotransferase [Enzymatic activity/volume] in Serum or Plasma 19 [facility] ([facility]) Urea nitrogen [Mass/volume] in Serum or Plasma 11 [facility] ([facility]) Creatinine For GFR 1.06 [facility] ([facility]) Glucose 77 70-100 [facility] ID Date Data Source [id number] 11/30/2020 11:12:00 AM EDT [facility]) Name Value Range Interpretation Code Description Data Sera rce(s) Supporting Document(s) Red Blood Count 5.28 4.70-6.20 [facility]) White Blood Count 5.3 4.3-10.9 [facility] ([facility]) Platelets 153 130-400 [facility] Hemoglobin 16.0 13.0-17.0 [facility] ([facility]) Hematocrit 47.7 39.0-50.0 [facility] ([facility]) ID Date Data Source [id number] 11/21/2020 11:09:00 AM EDT [facility] ([facility]) Name Value Range Interpretation Code Description Data Sera rce(s) Supporting Document(s) Magnesium Level 2.1 [facility] ([facility]) Troponin 1.48 [facility] ID Date Data Source [id number] 11/21/2020 11:09:00 AM EDT [facility] ([facility]) Name Value Range Interpretation Code Description Data Sera rce(s) Supporting Document(s) Sodium 140 [facility] Calcium [Mass/volume] in Serum or Plasma 9.1 [facility] ([facility]) Carbon dioxide, total [Moles/volume] in Serum or Plasma 26 [facility] ([facility]) Chloride [Moles/volume] in Serum or Plasma 107 [facility] ([facility]) Glucose 76 70-100 [facility] Potassium [Moles/volume] in Serum or Plasma 4.1 [facility] ([facility]) Blood Urea Nitrogen 12 5-21 [facility] ([facility]) Glomerular filtration rate/1.73 sq M.pre dicted [Volume Rate/Area] in Serum or Plasma by Creatinine-based formula (MDRD) Laboratory test result [facility] Creatinine 0.93 0.6-1.5 [facility] ID Date Data Source [id number] 11/20/2020 07:17:20 AM EDT [facility] Name Value Range Interpretation Code Description Data Sera rce(s) Supporting Document(s) &PDF [facility] WCRSMm8eQiVQGcEb81/HJMejWSMbv3VrMIgaSBu4CIjlEUDrR0DmiAynNCgHWR4xMsHOUVoESLRtGQPR yZW [file] AgICAgICAgICAgICAgICAgICAgICAgICAgICAgICAgICAgICAgICAgICAgICAgICAgDQogICAgICAgIC AgICAgICAgICAgICAgICAgICAgICAgICAgICAgICAg ICAgICAgICAgICAgICAgICAgICAgICAgICAgICAgICAgICAgICAgICAgICAgICAgICAgICAgICAgICAg DQogICAgICAgICAgICAgICAgICAgICAgICAgICAgICAgICAgICAgICAgICAgICAgICAgICAgICAgICAg ICAgICAgICAgICAgICAgICAgICAgICAgICAgICAgIC AgICAgICAgICAgDQogICAgICAgICAgICAgICAgICAgICAgICAgICAgICAgICAgICAgICAgICAgICAgIC AgICAgICAgICAgICAgICAgICAgICAgICAgICAgICAgICAgICAgICAgICAgICAgICAgICAgDQogICAgIC AgICAgICAgICAgICAgICAgICAgICAgICAgICAgICAg ICAgICAgICAgICAgICAgICAgICAgICAgICAgICAgICAgICAgICAgICAgICAgICAgICAgICAgICAgICAg ICAgDQogICAgICAgICAgICAgICAgICAgICAgICAgICAgICAgICAgICAgICAgICAgICAgICAgICAgICAg ICAgICAgICAgICAgICAgICAgICAgICAgICAgICAgIC AgICAgICAgICAgICAgDQogICAgICAgICAgICAgICAgICAgICAgICAgICAgICAgICAgICAgICAgICAgIC AgICAgICAgICAgICAgICAgICAgICAgICAgICAgICAgICAgICAgICAgICAgICAgICAgICAgICAgDQogIC AgICAgICAgICAgICAgICAgICAgICAgICAgICAgICAg ICAgICAgICAgICAgICAgICAgICAgICAgICAgICAgICAgICAgICAgICAgICAgICAgICAgICAgICAgICAg ICAgICAgDQogICAgICAgICAgICAgICAgICAgICAgICAgICAgICAgICAgICAgICAgICAgICAgICAgICAg ICAgICAgICAgICAgICAgICAgICAgICAgICAgICAgIC AgICAgICAgICAgICAgICAgDQogICAgICAgICAgICAgICAgICAgICAgICAgICAgICAgICAgICAgICAgIC AgICAgICAgICAgICAgICAgICAgICAgICAgICAgICAgICAgICAgICAgICAgICAgICAgICAgICAgICAgDQ u6F0xgRDGqNPXjHC6hTRe9Zx2+VNaXTtClBIP9ehYp cV3JIN7qc3VdKPigDDPpc8KkOQf3BY1MCTMoUZmeQX0IGVrsen9WBWFsHUBgfIAYg4xaNgIgESC9TMTx YfvwOG9VOXDdG4vmueHfUBLhQIWIDOysEELBHFbpOOFBLYBvPIVqDcCnAMakPQ6Kx5NkpYH8FDz+Pg0K ZM9cn2CeUDktLlWcRA4dhd7GMZmIWpXhP4SzghD4KT FcCUIdGl1PLTAuMLEiuCOtIiIgPMZAHzJoJ9DhgI66JDUEEg0+PHsvrhPpJabBSiEwCBLek2KgLMr3SZ 3UMXLtKMt7sDChXM5gqDCzfJMjKNgkGS5KRQJ5MDocWIPiJHNXRJ8MUTqqAKJ0VjjxbvZiwSVfXMimHX 9QYXJlbnQgMjIgMCBSDQo+Ae0FRL2nb9KzEAouPPNp YT6sbz4OIFoUClSlK0U9iLLeZ0P0KGihAq7IOIYqSAQvRzDxZZCDDVemZA0COR8qstN7WC2UeEEhJFYe JWFtiHQoMGc6L35xzRCpQHaqUF1QIHZ+Doroteo+Lf7OXXJsXYYrHESnPmEvDXAPZrDuF1TwN3DAr1NpQ4If MC48sHkjxvYtHKdiNW7QCL2zLJDjSKDZRK8OeMTcnM 3infCoHrMiKBEAEjQaG42fgAEwOUAhJOJwGXLhVa4IBAFvR1EjcaHghTlfjdCdIRNbUWCGVL3GGMjkko VofZSzfAkzSC25yEpeXP2PHa2EPfGhEB5fjp7IbDPiJt3ERWKxFZ7ZUSOyNKIcVLBhVLJ1MJItHwAkXD fhFHBdZQRmEZF9VEXcNEWaGI9XYdFlAOZgPOb9KNPn UCPsBYQzer1CAFMtVEDuLBQjZPRvWXUqIMBxBSqjZAVdOWJpSRe5JLWsOPFvTD7STmByXYWeJOOaSVKk AZMgHIKvkm7HQOPnKAQgRtHuZiMlVUUaBLMjCPsuXBVaXJL3SjQ9GQUhKTQyTP4AVyHtVYWyCTG4AJxo AZJmJKTlhh2JYRDsDKUwNWHcSzXfRCNoSGMbZLxxYZ WeNGH3XxZ9PBOiLKOhTP8YAmKuIZLyFSPhIQPcKETgAIValz8QVVHlZAHsCUY1VMJpHKSySTJkVIssRL WxAAMjUOJ7OUVtABCdHX2GXaZeDAWkQDX8GVBiGARgFDIbjd7SACJbBXCuTAa2FKUyKWFoZFNcISbkXZ RkTAFbGOW7QEKqKUDjKR1GNaKkVBQwYMGzRkXgFCYp LMQhvi9RLBAgQPMuLpB3JYHuDQYyKNSgKXhgNRZgNXL8ELLxNHOdYDIqXF1BVfOkUNBcGCi8RmChAZPd MTMbrc1PIBCvQXBtKYU4OPOfNTZrRDTwOGubERCnMQHmVfEqZLSeGFUpSG9DPwPuJLQjChL2HDRnFDRk CNIfjh0OWMAmQVCrGMhdDpObLYEeEPSsWHp3dwAamK IqDZv2FR3RY6HuajEfVaMMZd6Ry422CLV2YHMjYx3RB8hgTv4jPLHtQLPEGv4NQHf6ABEsNdowQiK7LQ WaGMQsGSc1PyNpKBT7ROW4ZoL0BWP+XAjfYJW0D3JrLXo6QzA6KBHyIGumRyW9ANw9BDVuBtB9LW3rTV ANCj4+CIzjzLEmwBqzTCMCRjLsBIZ5GJbbPOREHj5U ID Date Data Source [id number] 11/19/2020 11:45:51 AM EDT [facility] NT INFORMATIONPatient MRN Name Date of Age Gend*PT [id number] Gallito Hinojosa 1995 25 years M [facility] Location Admission Date/Time Visit ID Attending Provider --- --- --- --- EPI ID CSN Admitting Pro vider [id number] ---Arterial Line PlacementPatient location during procedure: ORIndications [...] rce(s) Supporting Document(s) ID Date Data Source [id number] 11/19/2020 11:45:21 AM EDT [facility] NT INFORMATIONPatient MRN Name Date of Age Gend*PT [id number] Gallito Hinojosa 1995 25 years M [facility] Location Admission Date/Time Visit ID Attending Provider --- --- --- --- EPI ID CSN Admitting Pro vider [id number] ---AirwayPatient location during procedure: ORUrgency: electiveDifficult airway: [...] cmPlacement verified by: chest auscultation and + [id number]: CTA and equal breath sounds bilateralGrade view: grade IIa - partial view of glottis Name Value Range Interpretation Code Description Data Sera rce(s) Supporting Document(s) ID Date Data Source [id number] 11/19/2020 10:48:37 AM EDT [facility] [place] NT INFORMATIONPatient MRN Name Date of Age Gend*PT [id number] Gallito Hinojosa 1995 25 years M [facility] Location Admission Date/Time Visit ID Attending ProviderCV-11 11/19/20 1035 --- Ward Durán MD([id number]) EPI ID CSN Admitting Provider [id number] Ward Durán MD([id number])H&P reviewed. The patient was examined and there are no changes to the H&P.Ward Durán MD10:48 AM Name Value Range Interpretation Code Description Data Sera rce(s) Supporting Document(s) ID Date Data Source [id number] 11/16/2020 10:08:39 AM EDT [facility] Name Value Range Interpretation Code Description Data Sera rce(s) Supporting Document(s) EKG [facility] ZKCEHx1xRjVTQpGxj0DuSkEfZGRzRA9dale5L4D9rIXmG8ClcMTre1qlM1VxF4OvKXYnZQFHQT6VnQFl jb2 [file] OTggMDAwMDAgbiAKMDAwMDAwMDQwOSAwMDAwMCBuIA zvKEEnZUOhFKOnIMGhFHRzHB1qZmKuMRBhOKZ4TMPdPKBfKEDwjsGGZORiRGEwZCj0YYTfPYTmWWGtVH syCZGsJTSvJTN2ZRHpNTMcMT7dUrOmIVAtMAV8CmCsWUXsEPXaruSRJJVbQFWxYCL3YfIcAUFbIXRaIC fnMARcPGVoFRpaTCZiMCXqMM7mQiZrTNMiRFNfJJwv HVZhBLYqgzSOMQQhWNTtAEMnFvVxCOFoJQVmFRvbRQIlASGvTaU7AHAvJZGwDH1bHhOiAXSaDSS2HMsm SALoTECvdfFBMUZmOVOnZQldMWIcYVVkQNIvVXhdBQVsCOKbLVG6TVYcFQYdYE2kFwJoGGApYWKyZDYv LiF9RyKgOgLJbMAruGunuss2XIzmR8g7ZWQdOAzyHN 5qizYkIZRvHpchMp8boNQ7ZITkRmtTZs1Pq8XulvE7qeDzExRxLcVjOfLkPJ6D ID Date Data Source [id number] 11/16/2020 09:13:47 AM EDT [facility] [place] INFORMATIONPatient MRN Name Date of Age Gend*PT [id number] Chandler Camargo Gallito Orta 1995 25 years M [facility] Location Admission Date/Time Visit ID Attending Provider --- --- --- Violeta Ortega([id number]) EPI ID CSN Admitting Provider [id number] ---OUTPATIENT / OBSERVATIONAL SURGICAL OR INVASIVE PROCEDUREName: Gallito Camargo : 1995 Sex: male [facility]Attending Phys[facility]: Dr. HopperHISTORY OF PRESENT ILLNESS: Mr Camargo is a 25 years old -[place]ian malewith history of depression, anxiety, GERD, and [...] RECORDER 08/2020 WISDOM TOOTH EXTRACTION localALLERGIES:AllergiesAllergen Reactions [place] Meal Anaphylaxis Avocado AnaphylaxisMEDICATIONS:Prior to Admission medicationsMedication [...] thyromegaly. No carotid bruits.MENTAL / NEUROLOGICAL STATUS: [id number]: Clear to auscultation. No wheezes, rhonchi or crackles.HEART: Rate rhythm regular. S1, S2. No murmur, rub or gallop.ABDOMEN: Bowel sounds positive times four. Soft, non tender. No reboundtenderness. No hepatosplenomegaly. Negative CVAT.EXTREMITIES: Pulses are symmetrical. NO edema.Anesthesia complications: [facility] :: 3/10 Managing Well [...] parts of this document, were dictated using [employer] speaking software. A reasonable attempt at proofreading has beenmade to minimize errors. Please call with any questions or corrections.* Name Value Range Interpretation Code Description Data Sera rce(s) Supporting Document(s) ID Date Data Source [id number] 11/16/2020 05:46:21 PM EDT [facility] JOSE SPEC EXP DATE 11/20/2020ATI ENT ABO/Rh O POSITIVEANTIBODY SCREEN NEGATIVETESTING SITE PERFORMED AT [address] [place], [place] [address]BLOOD BANK COMMENT BLOOD TYPE CONFIRMED. Name Value Range Interpretation Code Description Data Sera rce(s) Supporting Document(s) TYPE AND SCREEN [facility] o f MIC ID Date Data Source [id number] 11/16/2020 04:03:58 PM EDT [facility] Name Value Range Interpretation Code Description Data Sera rce(s) Supporting Document(s) WBC 3.7 10*3/uL (4.1-11.0) L [facility] RBC 4.93 10*6/uL (4.60-6.10) [facility] HGB 15.3 g/dL (13.5-18.0) [facility] HCT 45.9 % (41.0-53.0) [facility] MCV 93.3 fL (80.0-95.0) [facility] MCH 31.0 pg (27.0-32.0) [facility] MCHC 33.2 g/dL (32.0-36.0) [facility] RDW 13.7 % (10.5-14.5) [facility] PLT 149 10*3/uL (150-450) L [facility] MPV 11.0 fL (7.1-10.7) H [facility] ID Date Data Source [id number] 11/16/2020 03:47:26 PM EDT [facility] Name Value Range Interpretation Code Description Data Sera rce(s) Supporting Document(s) SODIUM 140 mmol/L (136-145) [facility] POTASSIUM 4.3 mmol/L (3.6-5.2) [facility] CHLORIDE 104 mmol/L (100-108) [facility] CO2 32 mmol/L (22-31) H [facility] ANION GAP 4 mmol/L (7-16) L [facility] UREA NITROGEN 14 mg/dL (7-24) [facility] CREATININE 1.01 mg/dL (0.80-1.30) [facility] BUN/CREAT RATIO 13.9 RATIO (10.0-20.0) [facility] GLUCOSE 89 mg/dL (70-99) [facility] CALCIUM 9.3 mg/dL (8.4-10.2) [facility] GFR >60 ml/min/1.73m2 (>59) [facility] GFR ( AMER) >60 ml/min/1.73m2 (>59) [facility] GFR INTERPRETATION [facility] --NORMAL KIDNEY FUNCTION OR MILD DISEASE - GFR >OR= 60CHRONIC KIDNEY DISEASE - GFR 15 - 59RENAL FAILURE - GFR <15 Est. GFR calculation based on the MDRDstudy equation, which assumes a steadystate for creatinine. Est. GFR should notbe used for medication dosing. ID Date Data Source [id number] 09/23/2020 04:40:52 PM EDT [facility] [place] NT INFORMATIONPatient MRN Name Date of Age Gend*PT [id number] Gallito Hinojosa 1995 25 years M ---PT Location Admission Date/Time Visit ID Attending Provider --- --- --- --- EPI ID CSN Admitting Pro vider [id number] ---[facility] Cardi[facility] [id number], [address] (First Floor)[place], [place] [address]Wg.: Fax: Oatient: Gallito Camargo : 1995Date: 09/23/20CARDIOLOGY TELEMEDICINE VISITPatient was identified by name and date of .Verbal consent was obtained from the patient for this telemedicine visit.Patient is aware of the risks, limitations, and benefits of a telemedicinevisit.This telemedicine assessment was conducted remotely with the assistance of[employer] communication technology. Telephone Only Codes 36839: 21-30 minutesof medical discussion: Telephone Only .Subjective:Gallito [...] and benefitsFollow Up cryoablationSignature: Ward Durán MD, [facility], RSCardiac Electrophysiology and Arrhythmia ServiceDate: September 23, 2020Time: 4:37 PMThis document or parts of this document, were dictated using Tap2printware. A reasonable attempt at proofreading has been made to minimize errors.Please call with any questions or corrections. Name Value Range Interpretation Code Description Data Sera rce(s) Supporting Document(s) ID Date Data Source [id number] 08/17/2020 11:31:00 AM EST [facility] Name Value Range Interpretation Code Description Data Sera rce(s) Supporting Document(s) SARS coronavirus 2 RNA Not Detected [facility] [place] This lab was ordered by [facility] and reported by [facility]. ID Date Data Source [id number] 07/09/2020 03:02:00 PM EST [facility] ([facility]) Name Value Range Interpretation Code Description Data Sera rce(s) Supporting Document(s) Calcium [Mass/volume] in Serum or Plasma 9.3 [facility] ([facility]) Sodium 141 [facility] ([facility]) Chloride [Moles/volume] in Serum or Plasma 103 [facility] ([facility]) Carbon dioxide, total [Moles/volume] in Serum or Plasma 32.5 [facility] ([facility]) Potassium [Moles/volume] in Serum or Plasma 4.20 [facility] ([facility]) Glucose 120 74-106 [facility] ([facility] [place]) Blood Urea Nitrogen 11 7-18 [facility] (Ca [facility]) Creatinine 1.05 0.70-1.30 [facility] ([facility]) Glomerular filtration rate/1.73 sq M.pre dicted [Volume Rate/Area] in Serum or Plasma by Creatinine-based formula (MDRD) 99.6 [facility] ([facility]) ID Date Data Source [id number] 06/24/2020 11:06:40 AM EST [facility] [place] NT INFORMATIONPatient MRN Name Date of Age Gend*PT [id number] Gallito Hinojosa 1995 25 years M ---PT Location Admission Date/Time Visit ID Attending Provider --- --- --- --- EPI ID CSN Admitting Pro vider [id number] ---[facility] [id number], [address] (First Floor)[place], [place] [address]Zp.: Fax: Eatient: Gallito Camargo : 1995Date: 06/24/20CARDIOLOGY TELEMEDICINE VISITPatient was identified by name and date of .Verbal consent was obtained from the patient for this telemedicine visit.Patient is aware of the risks, limitations, and benefits of a telemedicinevisit.This telemedicine assessment was conducted remotely with the assistance of[employer] communication technology. Telephone Only Codes 18212: 21-30 minutesof medical discussion: Telephone Only .Subjective:Gallito [...] all. [place]. I am not sure he is having anyatrial fibrillation at all. I am not sure any of his symptoms already beencardiac in nature. This may all be anxiety driven. However we will need tocorrelate symptoms to his underlying cardiac rhythm. We will arrange for thepatient to have a 30-day event monitor [place]. If the event monitor shows atrial fibrillation [...] event monitor shows atrialfibrillationSignature: Ward Durán MD, [facility], [facility], [place] Electrophysiology and Arrhythmia ServiceDate: June 24, 2020Time: 11:02 AMThis document or parts of this document, were dictated using Dragon speakingsoftware. A reasonable attempt at proofreading has been made to minimize errors.Please call with any questions or corrections. Name Value Range Interpretation Code Description Data Sera rce(s) Supporting Document(s) ID Date Data Source [id number] 05/22/2020 12:50:00 PM EST [facility] ([facility]) Name Value Range Interpretation Code Description Data Sera rce(s) Supporting Document(s) Troponin Laboratory test result [facility] ([facility]) ID Date Data Source [id number] 05/22/2020 12:50:00 PM EST [facility] Name Value Range Interpretation Code Description Data Sera rce(s) Supporting Document(s) White Blood Count 4.5 4.0-10.0 [facility] ([facility]) Red Blood Count 5.33 4.30-6.10 [facility] ([facility]) Platelets 168 150-450 [facility] ([facility] [place]) Hemoglobin 15.7 [facility] ([facility]) Hematocrit 48.2 [facility] ([facility]) ID Date Data Source [id number] 05/22/2020 12:50:00 PM EST [facility] Name Value Range Interpretation Code Description Data Sera rce(s) Supporting Document(s) Calcium [Mass/volume] in Serum or Plasma 9.7 [facility] ([facility]) Sodium 138 [facility] ([facility] [place]) Carbon dioxide, total [Moles/volume] in Serum or Plasma 30 [facility] ([facility]) Potassium [Moles/volume] in Serum or Plasma 4.4 [facility] ([facility]) Chloride [Moles/volume] in Serum or Plasma 104 [facility] ([facility]) Blood Urea Nitrogen 14 7-18 [facility] ([facility]) Glucose 70 70-100 [facility] ([facility] [place]) Glomerular filtration rate/1.73 sq M.pre dicted [Volume Rate/Area] in Serum or Plasma by Creatinine-based formula (MDRD) Laboratory test result [facility] ([facility]) Creatinine 1.06 0.70-1.30 [facility] ([facility]) ID Date Data Source [id number] 04/02/2020 02:04:26 PM EDT [facility] [place] NT INFORMATIONPatient MRN Name Date of Age Gend*PT [id number] Gallito Hinojosa 1995 25 years M ---PT Location Admission Date/Time Visit ID Attending Provider --- --- --- --- EPI ID CSN Admitting Pro vider [id number] ---Cardiology Office NoteName: Gallito Camargo Gender: maleDate of : 1995 Age: 25 yearsPrimary Care Provider / Referring Physician: [facility]rkatheryn HistoryChief Complaint: Follow-up to recent cryoablation for atrial fibrillationHPI:This patient is a 25 years male presents today for follow-up. He has thefollowing medical problem list:1. Paroxysmal atrial fibrillation; status post cryoablation 03/20/2020Patient presents today for follow-up. He tells me that he did have episode ofchest pain and feeling short of breath postprocedure. [facility] He states that those symptoms have [...] file Gets together: Not on file Attends hindu service: Not on file Active member of [...] History Narrative Not on fileMedications and AllergiesALLERGIES/SENSITIVITIES: [place] meal and AvocadoCurrent Outpatient Medications: metoprolol tartrate [...] parts of this document, were dictated using Thinkfulware. A reasonable attempt at proofreading has been made to minimize errors.Please call with any questions or corrections. Name Value Range Interpretation Code Description Data Sera rce(s) Supporting Document(s) ID Date Data Source [id number] 03/24/2020 12:46:00 PM EDT [facility] ([facility]) Name Value Range Interpretation Code Description Data Sera rce(s) Supporting Document(s) Free T4 1.05 [facility] ([facility] [place]) Thyroid Stimulating Hormone 0.923 ME [facility] ([facility]) ID Date Data Source [id number] 03/24/2020 12:46:00 PM EDT [facility] ([facility]) Name Value Range Interpretation Code Description Data Sera rce(s) Supporting Document(s) Aspartate aminotransferase [Enzymatic activity/volume] in Serum or Plasma 24 [facility] ([facility]) Alkaline phosphatase [Enzymatic activity/volume] in Serum or Plasma 7 3 [facility] ([facility]) Alanine aminotransferase [Enzymatic activity/volume] in Serum or Pl asma 45 [facility] ([facility]) Protein [Mass/volume] in Serum or Plasma 7.6 [facility] ([facility]) Bilirubin.direct [Mass/volume] in Serum or Plasma Laboratory test res ult [facility] ([facility]) Bilirubin.total [Mass/volume] in Serum or Plasma 0.4 [facility] ([facility]) Albumin [Mass/volume] in Serum or Plasma 4.0 [facility] ([facility]) Cholesterol [Mass/volume] in Serum or Plasma Laboratory test result [facility] ([facility]) ID Date Data Source [id number] 03/24/2020 12:46:00 PM EDT [facility] ([facility]) Name Value Range Interpretation Code Description Data Sera rce(s) Supporting Document(s) Calcium [Mass/volume] in Serum or Plasma 9.6 [facility] ([facility]) Sodium 138 [facility] ([facility]) Carbon dioxide, total [Moles/volume] in Serum or Plasma 30 [facility] ([facility]) Potassium [Moles/volume] in Serum or Plasma 4.1 [facility] ([facility]) Chloride [Moles/volume] in Serum or Plasma 103 [facility] ([facility]) Blood Urea Nitrogen 11 7-18 [facility] ([facility]) Glucose 95 70-100 [facility] ([facility] [place]) Creatinine 0.98 0.70-1.30 [facility] ([facility]) Glomerular filtration rate/1.73 sq M.pre dicted [Volume Rate/Area] in Serum or Plasma by Creatinine-based formula (MDRD) Laboratory test result [facility] ([facility]) ID Date Data Source [id number] 03/24/2020 12:46:00 PM EDT [facility] ([facility]) Name Value Range Interpretation Code Description Data Sera rce(s) Supporting Document(s) White Blood Count 5.1 4.0-10.0 [facility] ([facility]) Red Blood Count 5.06 4.30-6.10 [facility] ([facility]) Platelets 132 150-450 [facility] ([facility] [place]) Hemoglobin 15.4 [facility] ([facility]) Hematocrit 46.5 [facility] ([facility]) ID Date Data Source [id number] 03/20/2020 10:39:41 AM EDT [facility] Name Value Range Interpretation Code Description Data Sera rce(s) Supporting Document(s) &PDF [facility] OPMAWd1nNhDBVdIy18/XBGwnFSNjd4XaPNulQOi1ZIxoGKQxN3MpmPxbMIuYVM5dFxRFLBtUTNNkUUBM yZW V3c9HsKYKwWlLKtKM4WK9uHDMdfgMcjeT8oL5oXD9IHPW+Kd6HLB1xe1BcBKt5GUNqn5GgQBrdMBk5T6 BzuSJkccJpGtjfwBNJYIAvPMWeR4zfhdg1wCRbWrR0Pb2VSvDxh5WsPRLjGYgFttSqE1/jNhZ+X6D/gc A+dAo0MW+dgSQr1npskbwJZSZCexNFV6QCPO9sH2KI oDmta9YqsGjzCLfYCTpXZmJuui4p1shPSfNGzB8/oOMwwBgj/pZ0GVSW6lL80g6cg3uRKvxhh8Jy/TkQ mOvHLtlUaragOXA0pzMfMsqiANyjMQKjjRZvQV9e1EnKoxalxHOHHfmoj+riEnEZMHREBeZotngz/Q7N /cuW4ytQnNfLrJVbw1BoNiIVea+KTefXKwTV2VDN8x ZK67I4M5QtgrzrHCBelUBFhE65R4YzXAgZfoiFjESYRD6T1Wt6487NwsYrAxPEJm2oVnsUCa+r704bva vpXE3mEuof2+X5zJ/MeJcEBxdmYdjkbtTbfLkOsVPCLisO2W9jejwUHkkaeEEHQ0qH/ZsY4MoIYSQipM ODObq9sLiOknV9O2M6QfqV+Ut46y+clCTtyhJBUz5E v79KZFPkjUQHCzJShARPSDDBxHCXBGVJ7b0FaDDEIOYxodN25VjwrkoQT8mjNGRL7ZwhuI3BzcNZJDHE [file] L2AgWvENStKGC8DZVwTtirDg8qHXXHQe1+EWrigEQpcCukRAXOTjE3EtK2TTcwOPYLRd7A ID Date Data Source [id number] 03/20/2020 09:48:22 AM EDT [facility] NT INFORMATIONPatient MRN Name Date of Age Gend*PT [id number] Gallito Hinojosa 1995 25 years M HOPPT Location Admission Date/Time Visit ID Attending Provider --- --- --- --- EPI ID CSN Admitting Pro vider [id number] ---Arterial Line PlacementPatient location during procedure: ORIndications [...] rce(s) Supporting Document(s) ID Date Data Source [id number] 03/20/2020 09:47:46 AM EDT [facility] NT INFORMATIONPatient MRN Name Date of Age Gend*PT [id number] Gallito Hinojosa 1995 25 years M HOPPT Location Admission Date/Time Visit ID Attending Provider --- --- --- --- EPI ID CSN Admitting Pro vider [id number] ---AirwayPatient location during procedure: ORUrgency: electiveDifficult airway: [...] cmPlacement verified by: chest auscultation and + [id number]: equal breath sounds bilateral and CTAGrade view: grade I - full view of glottis Name Value Range Interpretation Code Description Data Sera e(s) Supporting Document(s) ID Date Data Source [id number] 03/20/2020 08:48:41 AM EDT [facility] [place] NT INFORMATIONPatient MRN Name Date of Age Gend*PT [id number] Gallito Hinojosa 1995 25 years M HOPPT Location Admission Date/Time Visit ID Attending ProviderCV-05 03/20/20 0756 --- Ward Durán MD([id number]) EPI ID CSN Admitting Provider [id number] Ward Durán MD([id number])H&P reviewed. The patient was examined and there are no changes to the H&P.Ward Durán MD8:48 AM Name Value Range Interpretation Code Description Data Sera rce(s) Supporting Document(s) ID Date Data Source [id number] 03/15/2020 08:21:00 AM EDT [facility] Name Value Range Interpretation Code Description Data Sera rce(s) Supporting Document(s) SARS coronavirus 2 [facility] This lab was ordered by [facility] [place] and reported by [facility]. ID Date Data Source [id number] 03/17/2020 03:07:40 AM EDT [facility] Name Value Range Interpretation Code Description Data Sera rce(s) Supporting Document(s) SARS-COV-2 MYAH [facility] Not DetectedReference range: Not Detecte d This nucleic acid amplification test was developed and its performance characteristics determined by [employer]. Nucleic acid amplification tests include PCR and [...] result in this assay. Performed At: [facility] [address] [place] [address] [id number] Jorge Fernando MD Ph:[phone] ID Date Data Source [id number] 03/13/2020 01:31:20 PM EDT [facility] [place] NT INFORMATIONPatient MRN Name Date of Age Gend*PT [id number] Gallito Hinojosa 1995 25 years M OPPT Location Admission Date/Time Visit ID Attending Provider --- --- --- Violeta Ortega([id number]) EPI ID CSN Admitting Provider [id number] ---OUTPATIENT / OBSERVATIONAL SURGICAL OR INVASIVE PROCEDUREName: Gallito Camargo : 1995 Sex: male Care Provider: [facility] CareAttending Physician: Dr. Durán.HISTORY OF PRESENT ILLNESS: 25 years old black male with a 3-year history ofpalpitations, shortness of breath and syncope related to a diagnosis of atrialfibrillation. 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 His last syncopal episode was inD2018. He [...] Laterality Date WISDOM TOOTH EXTRACTION localALLERGIES:AllergiesAllergen Reactions [place] Meal Anaphylaxis Avocado AnaphylaxisMEDICATIONS:Prior to Admission medicationsMedication [...] thyromegaly. No carotid bruits.MENTAL / NEUROLOGICAL STATUS: PIHz0QCTRT: Clear to auscultation. No wheezes, rhonchi or crackles.HEART: Rate rhythm regular. S1, S2. No murmur, rub or gallop.ABDOMEN: Bowel sounds positive times four. Soft, non tender. No reboundtenderness. No hepatosplenomegaly. Negative CVAT.EXTREMITIES: Pulses are symmetrical. No edema.Anesthesia complications: [facility] Frailty [facility] :: 1/10 Very Fit (robust, active, energetic, well motivatedand fit.These people commonly exercise regularly and are in the most fit groupfor their age).Stop Bang Questionnaire - Total Score:STOP-Bang Total Score: 2ASSESSMENT: Paroxysmal atrial fibrillationPLAN: Procedure: Atrial fibrillation ablation and transesophageal echo.03/13/2020 1:31 PMHarini Hopper document or parts of this document, were dictated using [employer] software. A reasonable attempt at proofreading has beenmade to minimize errors. Please call with any questions or corrections.* Name Value Range Interpretation Code Description Data Sera rce(s) Supporting Document(s) ID Date Data Source [id number] 03/13/2020 12:40:00 PM EDT [facility] ([facility]) Name Value Range Interpretation Code Description Data Sera rce(s) Supporting Document(s) Red Blood Count 5.10 [facility] ([facility]) White Blood Count 4.0 [facility] ([facility]) Platelets 130 [facility] ([facility]) Hemoglobin 15.9 [facility] ([facility]) Hematocrit 47.3 [facility] ([facility]) ID Date Data Source [id number] 03/13/2020 12:40:00 PM EDT [facility] ([facility]) Name Value Range Interpretation Code Description Data Sera rce(s) Supporting Document(s) Sodium 140 [facility] ([facility]) Carbon dioxide, total [Moles/volume] in Serum or Plasma 33 [facility] ([facility]) Calcium [Mass/volume] in Serum or Plasma 9.5 [facility] ([facility]) Chloride [Moles/volume] in Serum or Plasma 104 [facility] ([facility]) Glucose 85 [facility] ([facility]) Blood Urea Nitrogen 11 [facility] ([facility]) Potassium [Moles/volume] in Serum or Plasma 4.1 [facility] ([facility]) Glomerular filtration rate/1.73 sq M.pre dicted [Volume Rate/Area] in Serum or Plasma by Creatinine-based formula (MDRD) Laboratory test result [facility] ([facility]) Creatinine 1.02 [facility] ([facility]) ID Date Data Source [id number] 03/13/2020 12:11:56 PM EDT [facility] Name Value Range Interpretation Code Description Data Sera rce(s) Supporting Document(s) EKG [facility] LCSHNm3uTkHILyBkn6YiRpLeVTXnSL8wisk3J1S8yEClW3NbsEScc7sxE9RvK4UaNYWcZNBDQI9CaYLv jb2 [file] f/production controller/4///xFPz3/LvsB07f96Bb8K/Em1USjm/swlO2X29S+iwpF5VCU+SyM/9yz+PIRSP/cs/i/P8L/ 083Fn46o6r/7YP50gmt/vNivwFAovhl35LQ90sn+1P 2exX/4v2fxH/CexZeap+rePk5pckc/PFslYjXIHPlyRDMlLLpqpUiRCAJOV1ADwPInYpBHmrZJMFRaHx v49JEN736lOtDGqwpao8au1GSi6sV2t/+AvFIIKkEyqHningzKexZ/Vc0aXnyxMR0/7ln8X+SNf+5Z/J +j+z/6MQ6YbvEkLBJuyAAggQY1ftaGW+eGg1UFJXES MB+XMZvCQHPdF7AO6xs11Ru03GzbvJZlH6O5UR5FZIKWyWrLdoSfoL3nICfTZfxH+yEIgkJABpsMNhls HcborAxrx9J4WlTaVDSXsEX4afAjUPPWPSZQUEmBSCSFOEhEJDKVWMjZAAJTBGEtJQWPdOENWMWVOqDD [file] 0l19Tn2uMagcrLc808oGk371Xc2/P98/ar1cjGKgR6o219UHj20p5r5J0j68kWJ2f1r0S5sw2l0/Pxv/ KZ9/38/7juzzHuXfym+3P9of0VYuCV+CI6cT8d0mu1wAlJXeJUBuOIpIK7fT2CytVjf3LmmY8EoaP1Oq oN7o3/45h+Bi8pH1feiygyzhlBJmwsNItzSIslnvFw t3iV6Dlvjorrp0sf2Aiisgzvf4gw3Wxlkybrxjfm9abTir0pF6W+ptGN+M6X7U68idxxd9u16R6n15hh MfnYN/4pd851YoG2yqMADbIvl/6tOjJBboMi76b8W7D/080M8D/TzQzwPjOzG+E+6kyD6ItmsyF1BxXs T12AiH40wu795Yq8WTSCvjgcy/9if/oVpl8Ndz5nig 0m3z178YanUDlnYit6mtyPwypedvzn9uTYubug71S+K2qP8372snY9F7sm+3Z1Os1j7URce81uV1CrVT 4FCsebki7TVQihbP40251xJWod/1jvz3U+0VB1jdN6TLfTftpCyg7r65567n5QUwKL+YQ2fF1BZn/h1w 2iuVA+XycoC+MvlEXr3e9b0MP+Jyx2gN13f9E3289/ vrn9AJqGc4ee7xbYJuxFskz+/dB0IUit3/I//i93x/Pz1Zne/vp site+rrE2pY0OTv/l5AjtiHX3CcSsmt3Q [file] 09Su1b9N55pD+/JVh/ebtYkKIMalktzogG1f5P7 [file] 04SKX1AXDkz920S75dY7UpqpWynDs2n23/94mML0+Z eJz+to7iVkvT4K8wH5XdV68xZ+3IagiS+Qw6i/9A7iXxQ9GvcytIEvgkE6pnCON9qQ5xJxxKmh/g80s9 nvQyWbFIN2aaKxbVhkafNjXmbSINhbUWBsXoi7QK6TrNJpKWZyQ9L2KALdzc1wHWIeLBMryUQbYfSwDG YCMC1BdHQkWU6PWIp4UDIpSSFrPnOeAOIhdpV9XRXu IPGvNITnS5ZnzyHbmKDsFCPpSy4+YC6kc7WwMgQyNVXwFwg9HT2LoDAhZA1KtXHvhU2iuhOyV069cxRd NSAnEbuar3QxRLspPCOXAV4VROF9EUZ1OLRtKi9+MR1qi2MiFbNmVHTeWeo3BZ1FaDRmo4YmKE2IQ3Zy PDKaDIRRDLK7f0BzAJZapyqweteyF2KjSMU9uZ0cCC H9VMGoQOrjFVDlNNVaYaTyRWIsLYotLGUiKFEnTBWnFMJyORh5xFFiKF1DE9WkYAEqWOHGLEBpmbNyUm 1eQVhHFV2pZbDUGFrHUCEzEZ9ZSyAbYTZaWof3TcE4NVOoP9NnoePcrTMsUSFZBRroCjzrKCKsnM0biT zfK2VnFXZ8v8HbGE8DO1EzOEGjNQOFDSE9j9CxJKSq zgsyfnucNnSsKOCaDQYnLEUtUO3Ewm8wsHQoyxLmHTBRFYngWosuPM7xwZafsenjC1QdvBVjGBP+PmVu NZ6wil4+FxQzWKQeJme3BBUwAAesJIUpRMCkPUZpW1nbOWNoGbEhNKPaRfUzDK3Kz7GjeRWeQx9lzcQt YmoKeHJlZgogICAgIDAgICAgMjQKMDAwMDAwMDAwMC X0PIDvPSWnJYwxDPJvIFCaGGtzFRTeFIFgKG2yQyYePBIhADV2DYPhRTRpIXOtnbCCDKQuDJU5AFojCK MmSPBsAKDgVOqfAVAqOUYpCKBwKNQ5XGC4XYZjVrZnILCqGHVfATHjMBHmAZNaqhDUQGGpMXVrKQS6KL PyTSXyDXXeHCzjDAWePVMfVXgdFATnJYNmRG5bGcPz DENlBDVmKBdyUGLpPZMaoeKUKTYxQIEaOPXkDEQcGHRqBLQjOBesHIPuFCDpPDIbBTTxRKZnCG7nSkWg XXZcQWQ3GFUoTTQgZRDzzpHYMKHcBEUmCUd7GIFtMTAnRTLaRTqyLWPoLSOzTMQ4CPRgDXCwHQ7aMoAg YKLyIRI9YnVpVYKpDGTzovIBRSRwPOIvXTL0KhRcHZ VjYBVmMSfyCOLkMGDbNHztRKKuGCJhHG6qAiSaEKXuEVJmOPdzDFBdSAQkdnSWIIEdRUWmGXAfBoIuZZ NpYCSdNFaoXNSyBLYqNhGsXPRoHPHgOR4cZnDtGCFcDGY0OUbcWNCpOCVbiaKZGJVkVAJxFQjaGDKqPO WcXQIwQHtmYUQhVGCcKZN4STDuBHPyPG1nGdAqOIEj LPHhYKDsZaL4TrVsHdYFeAFbbQvfmjo2AAkpE3y0UXWrGDsfZX7qliMoUIToZjpvWg0njZJ1FOAnRkxA Vj9Rb6TbjpI4neCkVhIlEsU6HyHbFD1G ID Date Data Source [id number] 03/13/2020 10:22:00 AM EDT [facility] NGIO CHESTCLINICAL HISTORY: Persistent atrial [...] rce(s) Supporting Document(s) ID Date Data Source [id number] 03/13/2020 07:44:40 PM EDT [facility] [place] [facility] SPEC EXP DATE 03/21/2020PATI ENT ABO/Rh O POSITIVEANTIBODY SCREEN NEGATIVETESTING SITE PERFORMED AT [address] [place] [address] Name Value Range Interpretation Code Description Data Sera rce(s) Supporting Document(s) TYPE AND SCREEN [facility] [place] [facility] PATIENT ABO/Rh O POSITIVE ID Date Data Source [id number] 03/13/2020 03:58:34 PM EDT [facility] [place] [facility] Name Value Range Interpretation Code Description Data Sera rce(s) Supporting Document(s) SODIUM 140 mmol/L (136-145) [facility] POTASSIUM 4.1 mmol/L (3.6-5.2) [facility] CHLORIDE 104 mmol/L (100-108) [facility] CO2 33 mmol/L (22-31) H [facility] ANION GAP 3 mmol/L (7-16) L [facility] UREA NITROGEN 11 mg/dL (7-24) [facility] CREATININE 1.02 mg/dL (0.80-1.30) [facility] BUN/CREAT RATIO 10.8 RATIO (10.0-20.0) [facility] GLUCOSE 85 mg/dL (70-99) [facility] CALCIUM 9.5 mg/dL (8.4-10.2) [facility] GFR >60 ml/min/1.73m2 (>59) [facility] GFR ( AMER) >60 ml/min/1.73m2 (>59) [facility] GFR INTERPRETATION [facility] --NORMAL KIDNEY FUNCTION OR MILD DISEASE - GFR >OR= 60CHRONIC KIDNEY DISEASE - GFR 15 - 59RENAL FAILURE - GFR <15 Est. GFR calculation based on the MDRDstudy equation, which assumes a steadystate for creatinine. Est. GFR should notbe used for medication dosing. ID Date Data Source [id number] 03/13/2020 03:36:51 PM EDT [facility] [place] [facility] Name Value Range Interpretation Code Description Data Sera e(s) Supporting Document(s) WBC 4.0 10*3/uL (4.1-11.0) L [facility] RBC 5.10 10*6/uL (4.60-6.10) [facility] HGB 15.9 g/dL (13.5-18.0) [facility] HCT 47.3 % (41.0-53.0) [facility] MCV 92.6 fL (80.0-95.0) [facility] MCH 31.1 pg (27.0-32.0) [facility] MCHC 33.6 g/dL (32.0-36.0) [facility] RDW 13.8 % (10.5-14.5) [facility] PLT 130 10*3/uL (150-450) L [facility] MPV 10.4 fL (7.1-10.7) [facility] ID Date Data Source [id number] 03/09/2020 02:03:44 [facility] [place] INFORMATIONPatient MRN Name Date of Age Gend*PT [id number] Gallito Hinojosa 1995 25 years M ---PT Location Admission Date/Time Visit ID Attending Provider --- --- --- --- EPI ID CSN Admitting Pro vider [id number] ---Addended by: SUBHA BLAND on: 03/09/2020 02:03 PM Modules accepted: Orders Name Value Range Interpretation Code Description Data Sera rce(s) Supporting Document(s) Procedure Social History Code Duration Value Status Description Data Source(s ) Alcohol intake 03/02/2021 12:00:00 AM EDT Ex-drinker (finding) comp leted Ex- drinker (finding) [facility] Alcohol intake 11/19/2020 12:00:00 AM EDT Ex-drinker (finding) comp leted Ex- drinker (finding) [facility] Alcohol intake 11/16/2020 12:00:00 AM EDT Ex-drinker (finding) comp leted Ex- drinker (finding) [facility] Alcohol intake 09/22/2020 12:00:00 AM EDT Not Currently completed [facility] Cigarette pack-years 09/22/2020 12:00:00 AM EDT UNK completed [facility] Cigarettes smoked current (pack per day) - Reported 09/23/19 12:00:00 AM EDT UNK completed [facility] Smoking 09/22/2020 12:00:00 AM EDT Current every day smoker co mpleted Current every day smoker [facility] Alcohol intake 06/24/2020 12:00:00 AM EST Not Currently completed [facility] Cigarette pack-years 06/24/2020 12:00:00 AM EST UNK completed [facility] Cigarettes smoked current (pack per day) - Reported 06/24/19 12:00:00 AM EST UNK completed [facility] Smoking 06/24/2020 12:00:00 AM EST Current every day smoker co mpleted Current every day smoker [facility] Vital Signs ID Date Data Source UNK Name Value Range Interpretation Code Description Data Source(s) Systolic blood pressure--sitting 136 mm[Hg] 136 mm[Hg] [facility] ([facility]) Ra, large cuff Heart rate 111 /min 111 /min [facility] ([facility]) 108, regular Diastolic blood pressure--sitting 86 mm[Hg] 86 mm[Hg] [facility] ([facility]) Ra, large cuff Body weight 179.00 [lb_av] 179.00 [lb_av] MEDEN T ([facility]) in full uniform 8 lbs Body height 68 [in_i] 68 [in_i] [facility] ([facility]) 5'8" Body mass index (BMI) [Ratio] 27.2 kg/m2 27.2 k g/m2 [facility] ([facility]) Systolic blood pressure 120 mm[Hg] 120 mm[Hg] M EDENT ([facility] ) Diastolic blood pressure 80 mm[Hg] 80 mm[Hg] [facility] ([facility] ) Heart rate 72 /min 72 /min [facility] ([facility] ) Body height 67 [in_i] 67 [in_i] [facility] ([facility] ) 5'7" Body weight 168.00 [lb_av] 168.00 [lb_av] MEDEN T ([facility]) Body mass index (BMI) [Ratio] 26.3 kg/m2 26.3 k g/m2 [facility] ([facility]) [place] body weight 148 [lb_av] 148 [lb_av] [facility]EN T ([facility]) Body temperature 97.7 [degF] 97.7 [degF] [facility] ([facility]) Body height 66 [in_i] 66 [in_i] [facility] ([facility]) 5'6" Body weight 169.50 [lb_av] 169.50 [lb_av] [facility] T ([facility]) Body mass index (BMI) [Ratio] 27.4 kg/m2 27.4 k g/m2 [facility] ([facility]) Systolic blood pressure 118 mm[Hg] 118 mm[Hg] [facility] Diastolic blood pressure 66 mm[Hg] 66 mm[Hg] [facility] Heart rate 101 /min 101 /min [facility] Oxygen saturation in Arterial blood by Pulse oximetry 99 % 99 % [facility] Body temperature 36.[address] [facility] Respiratory rate 18 /min 18 /min [facility] Body weight 76.794 kg 76.794 kg [facility] Body mass index (BMI) [Ratio] 26.52 kg/m2 26.52 kg/m2 [facility] Systolic blood pressure 121 mm[Hg] 121 mm[Hg] [facility] Diastolic blood pressure 78 mm[Hg] 78 mm[Hg] [facility] Heart rate 85 /min 85 /min [facility] Body temperature 36.[address] [facility] Respiratory rate 16 /min 16 /min [facility] Body height 170.2 cm 170.2 cm [facility] Body weight 76.658 kg 76.658 kg [facility] Body mass index (BMI) [Ratio] 26.47 kg/m2 26.47 kg/m2 [facility] Oxygen saturation in Arterial blood by Pulse oximetry 100 % 100 % [facility] Body weight 175.00 [lb_av] 175.00 [lb_av] MEDEN T ([facility]) in full uniform 8 lbs Body height 68 [in_i] 68 [in_i] [facility] ([facility]) 5'8" Body mass index (BMI) [Ratio] 26.6 kg/m2 26.6 k g/m2 [facility] ([facility]) Systolic blood pressure--sitting 124 mm[Hg] 124 mm[Hg] [facility] ([facility]) Ra, large cuff Diastolic blood pressure--sitting 72 mm[Hg] 72 mm[Hg] [facility] ([facility]) Ra, large cuff Body height 68 [in_i] 68 [in_i] [facility] ([facility]) 5'8" Body weight 173.00 [lb_av] 173.00 [lb_av] MEDEN T ([facility]) in full uniform 6 lbs Diastolic blood pressure--sitting 72 mm[Hg] 72 mm[Hg] [facility] ([facility]) Ra, large cuff Body mass index (BMI) [Ratio] 26.3 kg/m2 26.3 k g/m2 [facility] ([facility]) Systolic blood pressure--sitting 122 mm[Hg] 122 mm[Hg] [facility] ([facility]) Ra, large cuff Systolic blood pressure--sitting 118 mm[Hg] 118 mm[Hg] [facility] ([facility]) Ra, large cuff Body weight 172.00 [lb_av] 172.00 [lb_av] MEDEN T ([facility]) in full uniform Body height 68 [in_i] 68 [in_i] [facility] 5'8" Body mass index (BMI) [Ratio] 26.1 kg/m2 26.1 k g/m2 [facility] ([facility]) Heart rate 72 /min 72 /min [facility] ([facility] regular Respiratory rate 16 /min 16 /min [facility] ( [facility]) nonlabored Diastolic blood pressure--sitting 78 mm[Hg] 78 mm[Hg] [facility] ([facility]) Ra, large cuff Heart rate 71 /min 71 /min [facility] ([facility]) Systolic blood pressure--sitting 118 mm[Hg] 118 mm[Hg] [facility] ([facility]) large cuff, Ra Diastolic blood pressure--sitting 80 mm[Hg] 80 mm[Hg] [facility] ([facility]) large cuff, Ra Body weight 175.00 [lb_av] 175.00 [lb_av] MEDEN T ([facility]) Body height 68 [in_i] 68 [in_i] [facility] ([facility]) 5'8" Body mass index (BMI) [Ratio] 26.6 kg/m2 26.6 k g/m2 [facility] ([facility]) Patient Treatment Plan of Care Planned Activity Planned Date Details Description Data Source (s) Flecainide Acetate 50 MG Oral Tablet 03/03/2021 12:00:00 AM EDT [facility] rivaroxaban 20 MG Oral Tablet 12/23/2020 12:00:00 AM EDT [facility] normal saline flush 0.9 % injection 3 mL 11/19/2020 02:00:00 PM EDT [facility] normal saline flush 0.9 % injection 3 mL 11/19/2020 02:00:00 PM EDT [facility] normal saline flush 0.9 % injection 3 mL 11/19/2020 02:00:00 PM EDT [facility] fentaNYL Citrate (PF) (SUBLIMAZE) injection 25 mcg 11/19/2020 01 :20:51 PM EDT [facility] HYDROmorphone (DILAUDID) injection 0.5 mg 11/19/2020 01:20:51 PM ED T [facility] Albuterol 0.833 MG/ML / Ipratropium [place] 0.167 MG/M L Inhalant Solution 11/19/2020 01:20:51 PM EDT [facility] 10 ML Atropine Sulfate 0.1 MG/ML Prefilled Syringe 11/19/2020 01 :20:50 PM EDT [facility] rivaroxaban 20 MG Oral Tablet 03/24/2020 12:00:00 AM EDT [facility]
[2021-04-19 09:45] LABS: BASO # 0.1 10^3/uL (0.0-0.2); EOS # 0.1 10^3/uL (0.0-0.5); EOS % 1.3 % (0.0-3.0); HEMOGLOBIN 15.2 g/dl (13.5-17.5); LYMPH # 2.4 10^3/uL (1.5-5.0); LYMPH % 39.6 % (24.0-44.0); MEAN CORPUSCULAR HEMOGLOBIN 30.6 pg (27.0-33.0); MEAN CORPUSCULAR VOLUME 92.7 fl (80.0-96.0); MONO # 0.5 10^3/uL (0.0-0.8); MONO % 8.9 % (2.0-8.0); NEUTROPHILS # 2.9 10^3/uL (1.5-8.5); PLATELET COUNT, AUTOMATED 160 10^3/uL (150-450); RED BLOOD COUNT 4.96 10^6/uL (4.30-6.10); WHITE BLOOD COUNT 5.9 10^3/uL (4.0-10.0)
[2021-04-19 09:55] LABS: INR 1.1; PROTHROMBIN TIME 14.6 SECONDS (12.7-14.5)
[2021-04-19 09:56] LABS: PARTIAL THROMBOPLASTIN TIME 32.8 SECONDS (25.9-37.0)
--- NOTE | 2021-04-19 10:04 | REP ---
INDICATION: CHEST PAIN. COMPARISON: 11/30/2020, 11/21/2020. TECHNIQUE: AP portable seated chest, somewhat lordotic projection. FINDINGS: There is a loop recorder again overlying the left chest wall. Lungs are well inflated without infiltrate or effusion. Heart is not enlarged for this projection and technique. There is no vascular redistribution or pulmonary edema. The aorta and airway were unremarkable. Bony thorax shows no focal lesion. No free air under the diaphragm. IMPRESSION: 1. No acute cardiopulmonary change. Loop recorder seen over the left chest wall. <Electronically signed by Alonzo Cedeno > 04/19/21 [id number]
[2021-04-19 10:18] LABS: ALBUMIN 3.6 GM/DL (3.2-5.2); ALT/SGPT 67 U/L (12-78); BILIRUBIN,DIRECT < 0.1 MG/DL (0.0-0.2); BILIRUBIN,TOTAL 0.3 MG/DL (0.2-1.0); BLOOD UREA NITROGEN 15 MG/DL (7-18); CALCIUM LEVEL 8.8 MG/DL (8.5-10.1); CARBON DIOXIDE LEVEL 31 MEQ/L (21-32); CHLORIDE LEVEL 106 MEQ/L (98-107); CK-MB VALUE MASS 1.7 NG/ML (<3.6); CPK CREATINE PHOSPHOKINASE 555 U/L (39-308); ERYTHROCYTE SEDIMENTATION RATE 1 mm/hr (0-15); FREE T4 0.74 NG/DL (0.76-1.46); GLOMERULAR FILTRATION RATE > 60.0 (>60); GLUCOSE, FASTING 105 MG/DL (70-100); MB/CK RELATIVE INDEX 0.31 (< OR =4); NT-PRO BNP 12 PG/ML (<125); POTASSIUM SERUM 3.7 MEQ/L (3.5-5.1); SODIUM LEVEL 141 MEQ/L (136-145); TOTAL PROTEIN 6.9 GM/DL (6.4-8.2); TROPONIN I < 0.02 NG/ML (< 0.10)
[2021-04-19 11:52] LABS: CK-MB VALUE MASS 1.5 NG/ML (<3.6); CPK CREATINE PHOSPHOKINASE 515 U/L (39-308); MB/CK RELATIVE INDEX 0.29 (< OR =4); TROPONIN I < 0.02 NG/ML (< 0.10)
[2021-04-19 14:15] VITALS: BP 126/66
--- NOTE | 2021-04-20 06:27 | ECGEPIP ---
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
--- NOTE | 2021-04-20 06:27 | ECGEPIP ---
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
== END 2021-04-19 14:19 | disposition home or self-care (01) ==
LOC: M ED 08:35
DX: R07.89 Other chest pain (principal); R00.2 Palpitations; I48.91 Unspecified atrial fibrillation; Z79.899 Other long term (current) drug therapy; Z79.01 Long term (current) use of anticoagulants; F17.210 Nicotine dependence, cigarettes, uncomplicated

== ENCOUNTER 2021-04-22 11:19 | Emergency (ER) | payer OTHER ==
[~2021-04-22] VITALS: Ht 170.2 cm; Wt 86.4 kg
[~2021-04-22 11:19] MED LIST changes: +FLEC50HA PO; +MIRT1TAB16 PO
--- OUTSIDE RECORDS SUMMARY | 2021-04-22 11:28 | CCD ---
Author Author [facility] Organization [facility] Address Unknown Phone Unavailable Care Team Providers Care Sterile Supervisor Name Role Phone Deny, L Olimpia PA [...] Unavailable Deny, L Olimpia PA Unavailable Unavailable Patricia Holt MD Unavailable Unavailable Patricia Holt MD Unavailable Unavailable Al Mudamgha, A Ali [...] Al Mudamgha, A Ward ULLOA Unavailable Unavailable UNKNOWN, CLIN[facility] Unavailable Unavailable Rodney Bermudez MD Unavailable Unavailable Rodney Bermudez MD Unavailable Unavailable Rodney Bermudez MD Unavailable Unavailable Rodney Bermudez MD Unavailable Unavailable Rodney Bermudez MD Unavailable Unavailable Rodney Bermudez MD Unavailable Unavailable Ginny Estrella MD Unavailable Unavailable Ginny Estrella MD Unavailable Unavailable Estrella, L Scooter ULLOA [...] Scooter ULLOA Unavailable Unavailable Estrella, L Scooter LULOA Unavailable Unavailable Estrella, L Scooter ULLOA Unavailable [...] Unavailable Sweet, Gambee Joy PA-C Unavailable Unavailable ZABOROWSKI, J SUBHA DIE DEVELOPER Unavailable Unavailable ZABOROWSKI, J SUBHA DIE DEVELOPER Unavailable Unavailable ZABOROWSKI, J SUBHA DIE DEVELOPER Unavailable Unavailable ZABOROWSKI, J SUBHA DIE DEVELOPER Unavailable Unavailable ZABOROWSKI, J SUBHA DIE DEVELOPER Unavailable Unavailable ZABOROWSKI, J SUBHA DIE DEVELOPER Unavailable Unavailable ZABOROWSKI, J SUBHA DIE DEVELOPER Unavailable Unavailable ZABOROWSKI, J SUBHA DIE DEVELOPER Unavailable Unavailable ZABOROWSKI, J SUBHA DIE DEVELOPER Unavailable Unavailable ZABOROWSKI, J SUBHA DIE DEVELOPER Unavailable Unavailable ZABOROWSKI, J SUBHA DIE DEVELOPER Unavailable Unavailable ZABOROWSKI, J SUBHA DIE DEVELOPER Unavailable Unavailable ZABOROWSKI, J SUBHA DIE DEVELOPER Unavailable Unavailable ZABOROWSKI, J SUBHA DIE DEVELOPER Unavailable Unavailable ZABOROWSKI, J SUBHA DIE DEVELOPER Unavailable Unavailable ZABOROWSKI, J SUBHA DIE DEVELOPER Unavailable Unavailable ZABOROWSKI, J SUBHA DIE DEVELOPER Unavailable Unavailable ZABOROWSKI, J SUBHA DIE DEVELOPER Unavailable Unavailable ZABOROWSKI, J SUBHA DIE DEVELOPER Unavailable Unavailable ZABOROWSKI, J SUBHA DIE DEVELOPER Unavailable Unavailable ZABOROWSKI, J SUBHA DIE DEVELOPER Unavailable Unavailable ZABOROWSKI, J SUBHA DIE DEVELOPER Unavailable Unavailable ZABOROWSKI, J SUBHA DIE DEVELOPER Unavailable Unavailable ZABOROWSKI, J SUBHA DIE DEVELOPER Unavailable Unavailable ZABOROWSKI, J SUBHA DIE DEVELOPER Unavailable Unavailable ZABOROWSKI, J SUBHA DIE DEVELOPER Unavailable Unavailable ZABOROWSKI, J SUBHA DIE DEVELOPER Unavailable Unavailable ZABOROWSKI, J SUBHA DIE DEVELOPER Unavailable Unavailable ZABOROWSKI, J SUBHA DIE DEVELOPER Unavailable Unavailable ZABOROWSKI, J SUBHA DIE DEVELOPER Unavailable Unavailable ZABOROWSKI, J SUBHA DIE DEVELOPER Unavailable Unavailable ZABOROWSKI, J SUBHA DIE DEVELOPER Unavailable Unavailable ZABOROWSKI, J SUBHA DIE DEVELOPER Unavailable Unavailable ZABOROWSKI, J SUBHA DIE DEVELOPER Unavailable Unavailable ZABOROWSKI, J SUBHA DIE DEVELOPER Unavailable Unavailable ZABOROWSKI, J SUBHA DIE DEVELOPER Unavailable Unavailable ZABOROWSKI, J SUBHA DIE DEVELOPER Unavailable Unavailable ZABOROWSKI, J SUBHA DIE DEVELOPER Unavailable Unavailable ZABOROWSKI, J SUBHA DIE DEVELOPER Unavailable Unavailable ZABOROWSKI, J SUBHA DIE DEVELOPER Unavailable Unavailable ZABOROWSKI, J SUBHA DIE DEVELOPER Unavailable Unavailable ZABOROWSKI, J SUBHA DIE DEVELOPER Unavailable Unavailable ZABOROWSKI, J SUBHA DIE DEVELOPER Unavailable Unavailable ZABOROWSKI, J SUBHA DIE DEVELOPER Unavailable Unavailable ZABOROWSKI, J SUBHA DIE DEVELOPER Unavailable Unavailable ZABOROWSKI, J SUBHA DIE DEVELOPER Unavailable Unavailable ZABOROWSKI, J SUBHA DIE DEVELOPER Unavailable Unavailable ZABOROWSKI, J SUBHA DIE DEVELOPER Unavailable Unavailable Al Mudamgha, A Ali MD [...] A Ali MD Unavailable Unavailable Georgette, Itzel DIE DEVELOPER Unavailable Unavailable Georgette, Itzel DIE DEVELOPER Unavailable Unavailable Georgette, Itzel DIE DEVELOPER Unavailable Unavailable Georgette, Itzel DIE DEVELOPER Unavailable Unavailable Georgette, Itzel DIE DEVELOPER Unavailable Unavailable Georgette, Itzel DIE DEVELOPER Unavailable Unavailable Georgette, Itzel DIE DEVELOPER Unavailable Unavailable Georgette, Itzel DIE DEVELOPER Unavailable Unavailable CHANLIECCO, C GIORGI MD Unavailable [...] is protected by Article 27-F of the [place] Public Health law. If you continue you may have access to information: Regarding HIV / AIDS; Provided by facilities licensed or operated by the [facility] Office of Mental Health; or Provided by the [facility] Office for People With Developmental Disabilities. If such information is present, then the following [facility] mandated warning applies: This information has been [...] law may result in a fine or alf sentence or both. A general authorization for the release of medical or other information is NOT sufficient authorization for further disc losure. Allergies and Adverse Reactions Type Description Substance Reaction Status Data Source(s ) Propensity to adverse reactions AVOCADO avocado allergen ic extract Anaphylaxis High Active [facility] High Propensity to adverse reactions ALMOND MEAL [employer] Meal Anaphylax is High Active [facility] High Family History Family Member Name Family Member Gender Family Member Status Date o f Status Description Data Source(s) Unknown Male Problem [facility] ([facility] Encounters Encounter Providers Location Date Indications Data Source(s ) Outpatient Attender: OFELIA STEINBERG Main Office 03/25/2021 0 3:00:00 PM EDT [facility] ([facility]) Outpatient Attender: Ward Holt MD BF-BF 03/03/2021 12:00:0 0 AM EDT [facility] Emergency Attender: Rodney Bermudez MDConsultant: ELIZABETH UNKNOWN 02/23/2021 08:45:00 AM EDT - 02/23/2021 09:55:00 AM EDT [facility] ital Patient discharged. Outpatient Attender: Ward RAIBF.[facility] 02/17/2021 07:55:5 7 AM EDT [facility] Outpatient Attender: Scooter Estrella MD Physical Therapy 01/18/2021 0 9:15:00 AM [facility] Emergency Attender: Rodney Bermudez MD 01/17/2021 02:19:00 PM EDT - 01/17/2021 06:26:00 PM EDT [facility] Patient discharged. Emergency Attender: GIORGI MENJIVAR MD 01/12/2021 11:26:00 AM EDT - 01/12/2021 12:47:00 PM EDT [facility] Patient discharged. Outpatient BF-BF.[facility] 12/23/2020 12:00:00 AM EDT [facility] Outpatient Attender: Joy Peck PA-C BFAnayBF.[facility] 12:00:00 AM EDT - 12/10/2020 12:14:04 PM EDT [facility] Outpatient Attender: Ward Holt MD Admitter: Ward Holt MDReferrer: Itzel Palomino NP 1-SJ.[facility] 11/19/2020 10:35:00 AM EDT - 11/19/2020 04:00:00 PM EDT [facility] Patient discharged. Outpatient Attender: Ward Holt MDReferrer: Ward Cisse MD MOB-MOB.PAT 11/16/2020 08:33:23 AM EDT - 11/16/2020 09:11:20 AM EDT [facility] Outpatient Referrer: Ward Holt MD MOB-MOB.PAT 11/16/2020 1 2:00:00 AM EDT [facility] Outpatient [id number] 10/30/2020 08:14:38 AM EDT [facility] Outpatient [id number] 10/21/2020 03:27:49 PM EDT [facility] Outpatient [id number] 10/16/2020 03:52:09 PM EDT [facility] Outpatient Attender: Ward Holt MD BF-BF.[facility] 09/23/2020 07:57:5 3 AM EDT [facility] Outpatient [id number] 09/17/2020 03:27:44 PM EDT [facility] Outpatient [id number] 09/01/2020 01:54:08 PM EDT [facility] Outpatient Attender: OFELIA STEINBERG Main Office 08/11/2020 1 1:45:00 AM EST [facility] ([facility]) Outpatient Attender: OFELIA STEINBERG Main Office 08/03/2020 0 9:15:00 AM EST [facility] ([facility]) Outpatient Attender: Ward Holt MD BF-BF.[facility] 06/24/2020 12:00:0 0 AM EST [facility] Outpatient Attender: OFELIA STEINBERG Main Office 06/15/2020 0 8:15:00 AM EST [facility] ([facility]) Outpatient BF-BF.[facility] 04/30/2020 12:00:00 AM EST [facility] Outpatient Attender: SUBHA BLAND NP BF-BF 04/02/2020 12:00:0 0 AM EDT [facility] Outpatient Attender: Ward Holt MDAdmitter: Ward Cisse MD ES1-SJ.CVAU 03/20/2020 07:56:00 AM EDT - 03/20/2020 01:57:00 PM EDT [facility] Patient discharged. Outpatient Attender: Olimpia STEINBERG Main Office 03/16/2020 09:15:0 0 AM EDT [facility] ([facility]) Outpatient Referrer: Ward Holt MD MOB-MOB.PAT 09/2019 11:08:31 AM EDT - 03/15/2020 11:08:36 AM EDT [facility] Outpatient Referrer: Ward Holt MD 03/13/2020 09:52:0 7 AM EDT [facility] Outpatient Attender: Ward Holt MDReferrer: Ward Cisse MD MOB-MOB.PAT 03/13/2020 08:53:42 AM EDT - 03/13/2020 09:53:39 AM EDT [facility] BF-BF 03/09/2020 02:03:44 PM EDT [facility] Outpatient Referrer: Ward Holt MD 03/05/2020 08:13:2 2 AM EDT [facility] Immunizations Vaccine Date Status Description Data Source(s) 10/27/2020 12:00:00 AM EDT completed <td I D="[id number]">Covid-19 (Pfizer)</td><td>10/27/2020, 08/25/2020</td><td></td> [facility] COVID-19 VACCINE Pfizer 10/27/2020 12:00:00 AM EDT completed [facility] Vaccine Series Complete: YESThis Data wa s Submitted to [facility] Via [employer]. 08/25/2020 12:00:00 AM EDT completed <td I D="[id number]">Covid-19 (Pfizer)</td><td>10/27/2020, 08/25/2020</td><td></td> [facility] COVID-19 VACCINE Pfizer 08/25/2020 12:00:00 AM EDT completed [facility] Vaccine Series Complete: YESThis Data wa s Submitted to [facility] Via [employer]. Medications Medication Brand Name Start Date Product Form Dose Route Admi nistrative Instructions Pharmacy Instructions Status Indications Reaction Description Data Source(s) gabapentin 300 MG Oral Capsule Gabapentin 04/14/2021 12:00:00 AM EDT ORAL active [facility] ([facility] Mirtazapine 7.5 MG Oral Tablet Mirtazapine 04/14/2021 12:00:00 AM EDT ORAL active [facility] ([facility] Omeprazole 20 MG Delayed Release Oral Capsule Omeprazole 03/24/2021 12:00:00 AM EDT ORAL completed [facility] ([facility]) duloxetine 30 MG Delayed Release Oral Capsule [Cymbalta] Cym bishop 03/24/2021 12:00:00 AM EDT ORAL active M [facility] ([facility]) gabapentin 600 MG Oral Tablet Gabapentin 03/24/2021 12:00:00 AM EDT ORAL completed [facility] ([facility]) Flecainide Acetate 50 MG Oral Tablet flecainide (TAMBO COR) 50 MG tablet flecainide (TAMBOCOR) 50 MG tablet 03/03/2021 12:00:00 AM EDT 50 mg Oral active Take 1 tablet (50 mg total) by m outh 2 (two) times a day [facility] 8 HR Acetaminophen 650 MG Extended Release Oral Tablet [Tyle nol] Tylenol 8 Hour 02/01/2021 12:00:00 AM EDT active [facility] ([facility]) 24 HR metoprolol succinate 200 MG Extended Release Ora l Tablet Metoprolol Succinate ER 01/21/2021 12:00:00 AM EDT ORAL completed [facility] ([facility]) rivaroxaban 20 MG Oral Tablet rivaroxaban (Xarelto) 20 MG TABS rivaroxaban (Xarelto) 20 MG TABS 12/23/2020 12:00:00 AM EDT 20 mg Oral active Take 1 tablet (20 mg total) by mouth daily [facility] normal saline flush 0.9 % injection 3 mL [id number] 11/19/2020 02:00:00 PM EDT 3 mL Intravenous active 3 mL , Intravenous, Every 8 hours (scheduled), First dose on Kendra 11/19/20 at 1400, PACU (only)
flush per protocol, D/C Main IV fluid if appropriate
[facility] Medication administered onsite normal saline flush 0.9 % injection 3 mL [id number] 11/19/2020 02:00:00 PM EDT 3 mL Intravenous active 3 mL , Intravenous, Every 8 hours (scheduled), First dose on Kendra 11/19/20 at 1400, Pre-op
Rapid push positive pressure flushing shall be performed with a 10 cc normal saline syringe to check the PATENCY of a PIV site prior to any infusion therapy initiation unless resistance is met.
[facility] Medication administered onsite normal saline flush 0.9 % injection 3 mL [id number] 11/19/2020 02:00:00 PM EDT 3 mL Intravenous active 3 mL , Intravenous, Every 8 hours (scheduled), First dose on Kendra 11/19/20 at 1400, Pre-op
Rapid push positive pressure flushing shall be performed with a 10 cc normal saline syringe to check the PATENCY of a PIV site prior to any infusion therapy initiation unless resistance is met.
[facility] Medication administered onsite 1 ML Ketorolac Tromethamine 30 MG/ML Car tridge ketorolac (TORADOL) injection 30 mg ketorolac (TORADOL) injection 30 mg 11/19/2020 01:46:43 PM EDT 30 mg Intravenous completed 30 mg, Intrav enous, Once as needed, severe pain (7-10), Starting on Kendra 11/19/20 at 1346, For 1 dose [facility] Medication administered onsite HYDROmorphone (DILAUDID) injection 0.5 mg [id number] 11/19/2020 01:20:51 PM EDT 0.5 mg Intravenous active 0.5 mg, Intravenous, Every 5 min PRN, severe pain (7-10), Starting on Kendra 11/19/20 at 1320, For 5 doses, PACU (only) [facility] Medication administered onsite ondansetron (ZOFRAN) injection 4 mg [id number] 11/19/2020 01:20:5 1 PM EDT 4 mg Intravenous completed 4 mg, In travenous, Once as needed, nausea, vomiting, Starting on Kendra 11/19/20 at 1320, For 1 dose, PACU (only)
If not given in last 4 hours
[facility] Medication administered onsite Albuterol 0.833 MG/ML / Ipratropium Brom maxine 0.167 MG/ML Inhalant Solution ipratropium-albuterol (DUO-NEB) 0.5-2.5 mg/mL nebulizer solution 3 mL ipratropium-albuterol (DUO-NEB) 0.5-2.5 mg/mL nebulizer solution 3 mL 11/19/2020 01:20:51 PM EDT 3 mL Inhalation active 3 mL, Inhalation, Once as needed, shortness of breath, Starting on Kendra 11/19/20 at 1320, For 1 dose, PACU (only) [facility] Medication administered onsite fentaNYL Citrate (PF) (SUBLIMAZE) injection 25 mcg [id number] 11/19/2020 01:20:51 PM EDT 25 ug Intravenous active 25 mcg, Intravenous, Every 5 min PRN, moderate pain (4 to 6), Starting on Kendra 11/19/20 at 1320, For 5 doses, PACU (only) [facility] Medication administered onsite 10 ML Atropine [...] or 0.04 mg/kg. Max of 6 doses
[facility] Medication administered onsite protamine injection [id number] 11/19/2020 12:33:22 PM EDT active As needed, Starting on Kendra 11/19/20 at 1233, Intra-Proc edure [facility] Medication administered onsite 1 ML heparin sodium, porcine 1000 UNT/ML Injection hep mikael (porcine) injection heparin (porcine) injection 11/19/2020 12:01:54 PM EDT active As needed, Starting on Kendra 11/19/20 at 1201, Intra-Procedure [facility] Medication administered onsite lidocaine (PF) (XYLOCAINE-MPF) 1 % injection [id number] 03/2021 11:55:13 AM EDT active As needed, Start ing on Kendra 11/19/20 at 1155, Intra-Procedure [facility] Medication administered onsite 24 HR metoprolol succinate 100 MG Extended Release Ora l Tablet Metoprolol Succinate ER 08/28/2020 12:00:00 AM EDT ORAL completed [facility] ([facility]) Omeprazole 20 MG Delayed Release Oral Capsule Omeprazole 08/03/2020 12:00:00 AM EST ORAL active [facility] ([facility] Metoprolol Tartrate 50 MG Oral Tablet Metoprolol Tartrate 12:00:00 AM EST ORAL completed [facility] ([facility]) rivaroxaban 20 MG Oral Tablet [Xarelto] Xarelto 06/14/2020 12:00:0 0 AM EST ORAL active [facility] ([facility] rivaroxaban 20 MG Oral Tablet rivaroxaban (XARELTO) 20 MG TABS rivaroxaban (XARELTO) 20 MG TABS 03/24/2020 12:00:00 AM EDT 20 mg Oral active Take 1 tablet (20 mg total) by mouth daily To start after procedure --discharge nurse to inform when to start. [facility] Insurance Providers Payer name Policy type / Coverage type Policy ID Covered green party ID Covered green party's relationship to lópez Policy López Plan Information [id number] xxxxxxxxx [id number] Ashley [id number] Ashley [id number] Ashley [id number] INSURANCE COVID-19 COVID Ashley C OVID INSURANCE COVID-19 [id number] [facility]ly [facility] [place] [id number] Self [id number] [facility] HUMANA - O/P [id number] 18 [id number] [facility] [id number] 18 [id number] [facility] ACTIVE DUTY [id number] SP [id number] Former[facility] [place] [id number] Self [id number] [facility] ACTIVE DUTY [id number] SP [id number] Problems, Conditions, and Diagnoses Code Display Name Description Problem Type Effective Dates Data Source(s) Z7901 retirement (current) use of anticoagulant s retirement (current) use of anticoagulants Diagnosis 02/23/2021 08:45:00 AM EDT [facility] [id number] Nicotine dependence, cigarettes, uncompl icated Nicotine dependence, cigarettes, uncomplicated Diagnosis 02/23/2021 08:45:00 AM EDT [facility] R9431 Abnormal electrocardiogram [ECG] [EKG] A bnormal electrocardiogram [ECG] [EKG] Diagnosis 02/23/2021 08:45:00 AM EDT [facility] R002 Palpitations Palpitations Diagnosis [facility] Lumbago with sciatica, left side Lumbago with sc iatica, left side Diagnosis 02/23/2021 08:45:00 AM EDT [facility] M545 Low back pain Low back pain Diagnosis 02/23/2021 08:45:00 AM [facility] K84212 Unspecified place in unspeci fied non-institutional (private) residence as the place of occurrence of the external cause Unspecified place in unspecified non-institutional (private) residence as the place of occurrence of the external cause Diagnosis 01/17/2021 02:19:00 PM EDT [facility] [id number] Fall (on) (from) unspecified stairs and steps, initial encounter Fall (on) (from) unspecified stairs and steps, initial encounter Diagnosis 01/17/2021 02:19:00 PM EDT [facility] M5416 Radiculopathy, lumbar region Radiculopathy, lumbar reg ion Diagnosis 01/17/2021 02:19:00 PM EDT [facility] [id number] Personal history of nicotine dependence Personal history of nicotine dependence Diagnosis 01/12/2021 11:26:00 AM EDT [facility] G8929 Other chronic pain Other chronic pain Diagnosis 08/2020 11:26:00 AM EDT [facility] I48.91 Unspecified atrial fibrillation Unspecified atri al fibrillation Diagnosis 12/23/2020 03:35:03 PM EDT [facility] I48.0 Paroxysmal atrial fibrillation Paroxysmal atrial fibri llation Diagnosis 12/10/2020 11:07:56 AM EDT [facility] U07.1 COVID-19 COVID-19 Diagnosis 11/16/2020 12:00:00 AM ED T [facility] [id number] Lumbosacral radiculopathy Lumbosacral radiculopathy Pr oblem 02/01/2021 12:00:00 AM EDT [facility] ([facility]) [id number] Chronic low back pain Chronic low back pain Problem 02/01/2021 12:00:00 AM EDT [facility] ([facility]) I48.91 Atrial fibrillation Atrial fibrillation [id number] 09/29/2020 12:00:00 AM EDT [facility] R06.02 Dyspnea Dyspnea Problem 08/03/2020 12:00:00 AM ES T [facility] ([facility]) R55 Syncope and collapse Syncope and collapse Problem 06/15/2020 12:00:00 AM EST [facility] ([facility]) R07.2 Precordial pain Precordial pain Problem 06/15/2020 12:0 0:00 AM EST [facility] ([facility]) Surgeries/Procedures Procedure Description Date Indications Data Source(s) Implantable Loop Recorder System, Review And Report 04/15/2021 12:00:00 AM EDT [facility] ([facility]) ECG ROUTINE ECG W/LEAST 12 LDS W/I&R 03/25/2021 12:00: 00 AM EDT [facility] ([facility]) OFFICE OUTPATIENT VISIT 25 MINUTES 03/25/2021 12:00:00 AM EDT [facility] ([facility]) Implantable Loop Recorder System, Review And Report 03/12/2021 12:00:00 AM EDT [facility] ([facility]) Implantable Loop Recorder System, Review And Report 02/08/2021 12:00:00 AM EDT [facility] ([facility]) Needle electromyography, each extremity, with related paraspinal areas, when performed, done with nerve conduction, amplitude and latency/velocity study; complete, five or more muscles studied, innervated by three or more nerves or four or more spinal levels (list separately in addition to the code for primary procedure). 02/03/2021 12:00:00 AM EDT [facility] T ([facility] ) Needle electromyography, each extremity, with related paraspinal areas, when performed, done with nerve conduction, amplitude and latency/velocity study; complete, five or more muscles studied, innervated by three or more nerves or four or more spinal levels (list separately in addition to the code for primary procedure). 02/03/2021 12:00:00 AM EDT [facility] T ([facility] ) 09102 Nerve conduction studies 13 or more studies NEW 201202/03/2021 12:00:00 AM EDT [facility] ([facility] X-Ray Spine Lumbosacral Bending Only 2 Or 3 Views 01/18/2021 12:00:00 AM EDT [facility] ([facility] ) OFFICE OUTPATIENT NEW 45 MINUTES 01/18/2021 12:00:00 A M EDT [facility] ([facility] ) Implantable Loop Recorder System, Review And Report 01/06/2021 12:00:00 AM EDT [facility] ([facility] Implantable Loop Recorder System, Review And Report 12/03/2020 12:00:00 AM EDT [facility] ([facility]) EP STUDY <td>EP STUDY</td><td>Routine </td><td>11/19/2020 12:32 PM EDT</td><td> Atrial fibrillation, unspecified type</td><td></td> 11/19/2020 12:32:27 PM EDT Atrial fibrillation, unspecified type [facility] Atrial fibrillation, unspecified type ECG ROUTINE ECG W/LEAST 12 LDS TRCG ONLY W/O I&R <td>E CG 12- LEAD</td><td>Routine</td><td>11/16/2020 9:11 AM EDT</td><td> Atrial fibrillation, unspecified type</td><td></td> 11/16/2020 09:11:02 AM EDT Atrial fibrillation, unspecified type [facility] Atrial fibrillation, unspecified type BLOOD COUNT COMPLETE AUTOMATED <td>CBC</td><td>Routine </td><td>11/16/2020 9:10 AM EDT</td><td> Atrial fibrillation, unspecified type</td><td> </td> 11/16/2020 09:10:00 AM EDT Atrial fibrillation, unspecified type [facility] Atrial fibrillation, unspecified type BLOOD TYPING ABO <td>TYPE AND SCREEN</td><td> Routine</td><td>11/16/2020 9:10 AM EDT</td><td> Atrial fibrillation, unspecified type</td><td> </td> 11/16/2020 09:10:00 AM EDT Atrial fibrillation, unspecified type [facility] Atrial fibrillation, unspecified type BASIC METABOLIC PANEL CALCIUM TOTAL <td>BASIC METABOLI C PANEL</td><td>Routine</td><td>11/16/2020 9:10 AM EDT</td><td> Atrial fibrillation, unspecified type</td><td> </td> 11/16/2020 09:10:00 AM EDT Atrial fibrillation, unspecified type [facility] Atrial fibrillation, unspecified type Implantable Loop Recorder System, Review And Report 10/27/2020 12:00:00 AM EDT [facility] ([facility]) Implantable Loop Recorder System, Review And Report 09/24/2020 12:00:00 AM EDT [facility] ([facility]) OFFICE OUTPATIENT VISIT 15 MINUTES 08/11/2020 12:00:00 AM EST [facility] ([facility]) OFFICE OUTPATIENT VISIT 15 MINUTES 08/03/2020 12:00:00 AM EST [facility] ([facility]) XTRNL ECG < 48 HR RECORDING 07/20/2020 12:00:00 AM EST [facility] ([facility]) XTRNL ECG CONTINUOUS RHYTHM PHYS REVIEW&INTERPJ 2020 12:00:00 AM EST [facility] ([facility]) ECHO TTHRC R-T 2D W/WOM-MODE COMPL SPEC&COLR DOP 07/16 12:00:00 AM EST [facility] ([facility]) CV STRS TST XERS&/OR RX CONT ECG PHYS SI&R 07/09/2020 12:00:00 AM EST [facility] ([facility]) ECG ROUTINE ECG W/LEAST 12 LDS W/I&R 06/15/2020 12:00: 00 AM EST [facility] ([facility]) OFFICE OUTPATIENT VISIT 25 MINUTES 06/15/2020 12:00:00 AM EST [facility] ([facility]) ECG ROUTINE ECG W/LEAST 12 LDS W/I&R 03/16/2020 12:00: 00 AM EDT [facility] ([facility]) Results ID Date Data Source [id number] 03/03/2021 12:34:28 PM EDT [facility] NT INFORMATIONPatient MRN Name Date of Age Gend*PT [id number] Gallito Hinojosa 1995 26 years M ---PT Location Admission Date/Time Visit ID Attending Provider --- --- --- --- EPI ID CSN Admitting Provider [id number] ---[facility] [id number] [facility], [address] (First Floor)[place], [place] [address]Ti.: Fax: Yatient: Gallito Camargo : 1995Date: 03/03/21CARDIOLOGY TELEMEDICINE VISITPatient was identified by name and date of .Verbal consent was obtained from the patient for this telemedicine visit.Patient is aware of the risks, limitations, and benefits of a telemedicinevisit.This telemedicine assessment was conducted remotely with the assistance of[employer] communication technology. Telephone Only Codes 91939: 21-30 minutesof medical discussion: Telephone Only .Subjective:Gallito [...] benefitsFollow Up 6 monthsSignature: Ward Durán MD, [facility], [facility]ITALCardiac Electrophysiology and Arrhythmia ServiceDate: March 03, 2021Time: 12:29 PMThis document or parts of this document, were dictated using [employer]. A reasonable attempt at proofreading has been made to minimize errors.Please call with any questions or corrections. Name Value Range Interpretation Code Description Data Sera rce(s) Supporting Document(s) ID Date Data Source [id number] 02/23/2021 08:07:00 [place] [address] RESPIRATORY CARE REPORT ==== ---------NAME------- NUMBER SEX AGE ADMIT DISC. XRAY# F/C TYPEMARY GALLITO Orta [id number] M 26 02/23/21 02/23/21 [id number] SB4 E/R DATE OF : 1995 M/R# [id number] #: [phone] VT-04 LOCATION: EMERGENCY DEPT EKG 16955 COMP LETE:02/23/21 15:13 [place] [id number] PHYSICIAN: ANDREE Gallagher Name Value Range Interpretation Code Description Data Sera rce(s) Supporting Document(s) ID Date Data Source [id number] 02/23/2021 08:45:00 AM EDT [facility] 1 OrderSheet [facility] Emergency Department [address] [place] [address] Phone #: ext- [phone] 02/23/2021 08:44 Patient: GALLITO HERNANDEZ Sex: M : 1995 Age: 26yWEIGHT:73.4 kg (S) HEIGHT:67 inches (S) BMI:25.4ALLERGIES: [employer] (Diagnostic), Avocado (Diagnostic)CHIEF COMPLAINT: back pain, chronic [...] rce(s) Supporting Document(s) ID Date Data Source [id number] 02/23/2021 08:45:00 AM EDT [facility] 1 Medication Reconciliation Report [facility] Emergency Department [address] [place] [address] Phone #: ext- [phone] 02/23/2021 08:44 Patient: GALLITO HERNANDEZ Sex: M : 1995 Age: 26yWeight: 73.4 kgHeight/Length: 67 in.BMI: 25.4ALLERGIES: [employer] (Diagnostic), Avocado (Diagnostic)The patient's Home Medications are [...] rce(s) Supporting Document(s) ID Date Data Source [id number] 02/23/2021 08:45:00 AM EDT [facility] 1 Medication Administration Record [facility] Emergency Department [address] [place] [address] Phone #: ext [phone] 02/23/2021 08:44 Patient: GALLITO HERNANDEZ Sex: M : 1995 Age: 26yWeight: 73.4 kgHeight/Length: 67 inBMI: 25.4ALLERGIES: [employer] (Diagnostic), Avocado (Diagnostic) Date/Time Medication Administered Medication OrderedGiven LIDODERM PATCH (LIDOCAINE) Lidoderm Patch Topical (Patch 509:42 02/23/2021 Dose: 1 patch Ointment Transdermal %) 1 Patch (NOW x1, On for 12Terry LILI Sampson hours, off for 12 hours.)Given MOTRIN [PO] (IBUPROFEN) Motrin 600 mg PO X1 dose: 70463:42 02/23/2021 Dose: 600 mg Tablets PO mg (NOW x1)Hema Sampson RN Name Value Range Interpretation Code Description Data Sera rce(s) Supporting Document(s) ID Date Data Source [id number] 02/23/2021 08:45:00 AM EDT [facility] 1 General Instructions [facility] Emergency Department [address] [place] [address] Phone #: ext- [phone] 02/23/2021 08:44 Patient: [...] verbalized by patient.Follow- up with: [facility], , , [address] [place] [address], , [place], [address] Follow up in three days if not well. Call for an appointment. Reason for referral: evaluation. ADDITIONAL INFORMATIONSciatica 2 General Instructions [facility] Emergency Department [address] [place] [address] Phone #: ext- [phone] 02/23/2021 08:44 Patient: [...] for yourself at home: 3 General Instructions [facility] Emergency Department [address] [place] [address] Phone #: ext- [phone] 02/23/2021 08:44 [id number] Sex: M : 1995 Age: 26y As [...] swelling over your back or spine [employer]. [address] [place] [address], [place] [address]. All rights reserved. This information is not intended as asubstitute for professional medical care. Always follow your healthcare professional's instructions. 4 General Instructions [facility] Emergency Department [address] [place] [address] Phone #: ext- [phone] 02/23/2021 08:44 Patient: [...] muscle (cardiomyopathy) Coronary artery disease High blood ulqmmoilVgi-igsiq-brmyfsz causes: Certain medicines such as asthma inhalers and decongestants Some herbal supplements, energy drinks and pills, and weight loss pills 5 General Instructions [facility] Emergency Department [address] [place] [address] Phone #: ext- [phone] 02/23/2021 08:44 Patient: [...] Tell your doctor about any prescription or wlga-vkx-vzywmus or herbal medicines you take.Follow-up care Follow [...] to seek medical advice 6 General Instructions [facility] Emergency Department [address] [place] [address] Phone #: ext- [phone] 02/23/2021 08:44 Patient: GALLITO HERNANDEZ Sex: M : 1995 Age: 26yCall your healthcare provider right away if you have palpitations that last longer than normal, or aredifferent from your past palpitations. [phone] [employer]. [address] [place] [address], [place] [address]. All rights reserved. This information is not intended as asubstitute for professional medical care. Always follow your healthcare professional's instructions. You have been given the following additional information: Sciatica Palpitations(Electronically signed by Rodney Bermudez 02/23/2021 11:16) Name Value Range Interpretation Code Description Data Sera rce(s) Supporting Document(s) ID Date Data Source [id number] 02/23/2021 08:45:00 AM EDT [facility] 1 Clinical Report - Nurses [facility] Emergency Department [address] [place] [address] Phone #: ext- [phone] 02/23/2021 08:44 Patient: [...] tingling, trouble walking orfever. No extremity pain.Treatment PATIENT CARE:None.SEPSIS SCREEN: SIRS SCREEN NEGATIVE. SEPSIS SCREEN NEGATIVE. [...] Sampson RN.AllergiesAlmond (Diagnostic).Avocado (Diagnostic). --09:02/23/21 Hema Sampson RN.Txkmklk50:02/23/21.PAST MEDICAL HX: Heart disease.SOCIAL HX: Smoker- current status unknown (1/2 ppd). No alcohol use or drug use. He was offeredHIV testing but declined and hepatitis C testing but declined. He has not traveled outside the [place]Infectious disease exposure: No infectious disease exposure. 2 Clinical Report - Nurses [facility] Emergency Department [address] [place] [address] Phone #: ext- [phone] 02/23/2021 08:44 Patient: [...] patient. To room. --09:02/23/21 Hema Sampson RN.PHYSICAL [id number]:02/23/21. Ambulatory to room.GENERAL / NEURO / PSYCH: [...] Sampson RN 3 Clinical Report - Nurses [facility] Emergency Department [address] [place] [address] Phone #: ext- [phone] 02/23/2021 08:44 Patient: [...] F. Pain level now 02/19. --09:45 02/23/21 [facility] 09:55 02/23/21. Departure time: 09:55 02/23/2021. Condition at departure: unchanged. No learning barriers present. Discharge instructions provided and reviewed with the patient. Reviewed medication(s) (no changes). Reviewed rest and ice instructions. Reviewed referrals. Provided to follow-up provider. Patient verbalized understanding. Written instructions provided in American. The patient was discharged by the physician. He was discharged home. He left ambulatory and via private vehicle. Patient driving. --:02/23/21 Hema Sampson RN.Locked/Released at 02/23/2021 12:00 by Hema Sampson RN Name Value Range Interpretation Code Description Data Sera rce(s) Supporting Document(s) ID Date Data Source [id number] 02/23/2021 08:45:00 AM EDT [facility] 1 Clinical Report - Physicians/Mid Levels [facility] Emergency Department [address] [place] [address] Phone #: ext- [phone] 02/23/2021 08:44 Patient: [id number] Sex: M : 1995 Age: 26y Time [...] Xarelto Oral (Tablet 20 mg), daily. Allergies: [employer] (Diagnostic). 2 Clinical Report - Physicians/Mid Levels [facility] Emergency Department [address] [place] [address] Phone #: ext- [phone] 02/23/2021 08:44 Patient: GALLITO HERNANDEZ Sex: M [...] stable. 3 Clinical Report - Physicians/Mid Levels [facility] Emergency Department [address] [place] [address] Phone #: ext- [phone] 02/23/2021 08:44 Patient: GALLITO HERNANDEZ Sex: M [...] with: [facility], , , [address] [place] [address], [address] Follow up in three days if not well. Call for an appointment. Reason for referral: evaluation.(Electronically signed by Rodney Bermudez 02/23/2021 11:16) Name Value Range Interpretation Code Description Data Sera rce(s) Supporting Document(s) ID Date Data Source [id number] 02/12/2021 12:00:00 AM EDT [facility] Name Value Range Interpretation Code Description Data Sera rce(s) Supporting Document(s) PCR NEGATIVE [facility] This lab was ordered by [facility] are and reported by [facility]. ID Date Data Source [id number] 01/17/2021 06:32:00 PM EDT [facility] [address] [place] [address] PHONE: [phone] FAX: [phone] Name .................. : MARY Orta Acct Number.................. : [id number] ROOM. ................. : VT-19 MR Number ................... : [id number] Stay type ............. : E/R Discharge Date......... ... : Admit Date ......... : 01/17/21 Admit Phys .................... : ANDREE Gallagher Date of ....... : 1995 Family Phys ................... : UNKNOWN CO Phone .................. : [phone] Age ................................ : 26 Film# .................. .:[id number] Sex ................................. : M Unsigned transcriptions are preliminary reports and do not represent a medical or legal document CT LUMBAR SP W/O CONT 65089 COMPLETE:01/17/21 16:54 48006 Reason(s): fell down stairs, acute on chronic [...] 01/17/21 18:32, JWS Page 1 of [address] [place] [address] PHONE: [phone] FAX: [phone] Name .................. : MARYBRIDGER ZENDEJAS You Acct Number.................. : [id number] ROOM. ................. : VT-19 MR Number ................... : [id number] Stay type ............. : E/R Discharge Date......... ... : Admit Date ......... : 01/17/21 Admit Phys .................... : ANDREE Gallagher Date of ....... : 1995 Family Phys ............ ....... : UNKNOWN CO Phone .................. : [phone] Age ................................ : 26 Film# .................. .:[id number] Sex ................................. : M Unsigned transcriptions are preliminary reports and do not represent a medical or legal document CT LUMBAR SP W/O CONT 81716 COMPLETE:01/17/21 16:54 11658 Reason(s): fell down stairs, acute on chronic LBP Transcribe Initials: TAWANNA , Transcribe Date: 01/17/21 17:50, Dictation Date: Copy for: BURKE Crandall via fax Copy for: EMERGENCY DEPT via modem Copy for: 710 MED REC DISCHARGED Page 2 of 2 Name Value Range Interpretation Code Description Data Sera rce(s) Supporting Document(s) ID Date Data Source [id number] 01/17/2021 02:19:00 PM EDT [facility] 1 OrderSheet [facility] Emergency Department [address] [place] [address] Phone #: ext- [phone] 01/17/2021 13:55 Patient: GALLITO HERNANDEZ Sex: M : 1995 Age: 26yWEIGHT:73.4 kg (S) HEIGHT:67 inches (S) BMI:25.4ALLERGIES: [employer] (Diagnostic), Avocado (Diagnostic)CHIEF COMPLAINT: fall, -3-, down [...] rce(s) Supporting Document(s) ID Date Data Source [id number] 01/17/2021 02:19:00 PM EDT [facility] 1 Medication Reconciliation Report [facility] Emergency Department [address] [place] [address] Phone #: ext- [phone] 01/17/2021 13:55 Patient: GALLITO HERNANDEZ Sex: M : 1995 Age: 26yWeight: 73.4 kgHeight/Length: 67 in.BMI: 25.4ALLERGIES: [employer] (Diagnostic), Avocado (Diagnostic)The patient's Home Medications are [...] Dispense6 tablet. Refills: 0. Substitution permitted.Pharmacy - [facility] [phone] ; [place] [address]. . -- MARYAN Velasco Name Value Range Interpretation Code Description Data Sera rce(s) Supporting Document(s) ID Date Data Source [id number] 01/17/2021 02:19:00 PM EDT [facility] 1 Medication Administration Record [facility] Emergency Department [address] [place] [address] Phone #: ext- [phone] 01/17/2021 13:55 Patient: GALLITO HERNANDEZ Sex: M : 1995 Age: 26yWeight: 73.4 kgHeight/Length: 67 inBMI: 25.4ALLERGIES: [employer] (Diagnostic), Avocado (Diagnostic) Date/Time Medication Administered Medication OrderedGiven MORPHINE [IM] Morphine IM 4 mg (NOW x1, HIGH17:04 01/17/2021 Dose: 4 mg IM ALERT MEDICATION)Hema Sampson RNGiven ZOFRAN ODT [PO] (ONDANSETRON Zofran ODT PO 4 mg (NOW x1)17:05 01/17/2021 HCL)Hema Sampson RN Dose: 4 mg Oral Disintegrating Tablets PO Name Value Range Interpretation Code Description Data Sera rce(s) Supporting Document(s) ID Date Data Source [id number] 01/17/2021 02:19:00 PM EDT [facility] 1 General Instructions [facility] Emergency Department [address] [place] [address] Phone #: ext- [phone] 01/17/2021 13:55 Patient: GALLITO HERNANDEZ Sex: M [...] Dispense6 tablet. Refills: 0. Substitution permitted.Pharmacy - [facility] [phone] ; [place] [address]. .Understanding of the discharge instructions verbalize d by patient. Expected course of injury, dischargeinstructions, activity level, prescriptions x1, follow-up appointment and risks and benefits of treatmentreviewed with patient and understanding verbalized. Agrees to plan of care.Follow-up with: [facility], , , [address] [place] [address], , [place], [address] Follow up in one day even if well. Call for the next available appointment. Reason for referral: evaluationand recommend MRI LS spine and referral to ortho spine . Summary of care provided to patient via paper. ADDITIONAL INFORMATION 2 General Instructions [facility] Emergency Department [address] [place] [address] Phone #: ext- [phone] 01/17/2021 13:55 Patient: GALLITO HERNANDEZ Sex: M [...] howsevere your symptoms are. 3 General Instructions [facility] Emergency Department [address] [place] [address] Phone #: ext- [phone] 01/17/2021 13:55 --- [...] your back or spine 4 General Instructions [facility] Emergency Department [address] [place] [address] Phone #: ext- [phone] 01/17/2021 13:55 Patient: GALLITO HERNANDEZ Sex: M : 1995 Age: 26y [id number] [employer]. [address] [place], [place] [address]. All rights reserved. This information is not [...] provider before using these 5 General Instructions [facility] Emergency Department [address] [place] [address] Phone #: ext- [phone] 01/17/2021 13:55 Patient: [...] the reading, especially if it affects treatment.Call [phone] if any of these happen: 6 General Instructions [facility] Emergency Department [address] [place] [address] Phone #: ext- [phone] 01/17/2021 13:55 Patient: [...] in vomit, stools (black or red color) [phone] [employer]. [address] [place] [address], [place] [address]. All rights reserved. This information is not [...] in poorly lit areas. 7 General Instructions [facility] Emergency Department [address] [place] [address] Phone #: ext- [phone] 01/17/2021 13:55 Patient: [...] sidewalks. If your balance is poor, con lay out technician using a cane or walker. If your [...] could make you more likely to fall. [id number] [employer] [address] [place] [address], [place] [address]. All rights reserved. This information is not intended as asubstitute for professional medical care. Always follow your healthcare professional's instructions. You have been given the following additional information: Sciatica Mechanical Fall Fall Prevention 8 General Instructions [facility] Emergency Department [address] [place] [address] Phone #: ext- [phone] 01/17/2021 13:55 Patient: GALLITO HERNANDEZ Sex: M : 1995 Age: 26yNo strenuous activity until better.(Electronically signed by MARYAN Velasco 01/17/2021 18:46) Name Value Range Interpretation Code Description Data Sera rce(s) Supporting Document(s) ID Date Data Source [id number] 01/17/2021 02:19:00 PM EDT [facility] 1 Clinical Report - Nurses [facility] Emergency Department [address] [place] [address] Phone #: ext- [phone] 01/17/2021 13:55 Patient: [...] bladder.). The patient has had trouble walking.Treatment PATIENT CARE:Seen within the last 30 days in the [...] Joaquin R.N.AllergiesAvocado (Diagnostic). --14:13 01/17/21 [place] Joaquin R.N.[employer] (Diagnostic). --14:14 01/17/21 [place] Joaquin R.N.PROBLEMS:Depression. --14:15 01/17/21 [place] Joaquin R.N.Back Pain.Atrial Fibrillation. --16:48 01/17/21 MARYAN Velasco 2 Clinical Report - Nurses [facility] Emergency Department [address] [place] [address] Phone #: ext- [phone] 01/17/2021 13:55 Patient: [...] in pain. 3 Clinical Report - Nurses [facility] Emergency Department [address] [place] [address] Phone #: ext- [phone] 01/17/2021 13:55 Patient: [...] RR: 16. O2 saturation: 99%. --17:11 01/17/21 [place] wiring mechanic, Cecilia, ER Tech1 Patient transported to CT by wheelchair with mask and radiology interventional physician. (1720). --17:31 01/17/21 Hema Sampson RN Patient returned from CT by wheelchair with mask and radiology interventional physician. (1731). --17:33 01/17/21 Hema Sampson RN 18:16 01/17/21. BP: 114/83. HR: 84. RR: 16. O2 saturation: 100%. --18:16 01/17/21 [place] wiring mechanic, Cecilia, Tech1.DISPOSITION / DISCHARGE 17:49 01/17/21. Departure time: 17:49 01/17/2021. Transferred. Provided to EMS ([facility]). Transported via ambulance by mail forwarding system markup clerk. Report was given to a nurse via [...] now 10/19. 4 Clinical Report - Nurses [facility] Emergency Department [address] [place] [address] Phone #: ext- [phone] 01/17/2021 13:55 Patient: GALLITO HERNANDEZ Sex: M : 1995 Age: 26y --18:18 01/17/21 [facility] Tech[place] [address] Departure time: 18:24 01/17/2021. --18:24 01/17/21 Balbina Ramirez RN Condition at departure: stable. No learning barriers present. Discharge instructions provided and reviewed with the patient. Reviewed medication(s) side effects, precautions, dosing and course information. Prescription(s) sent electronically to pharmacy. Reviewed referral to a primary care physician. Patient verbalized understanding. Written instructions provided in American. The patient was discharged by the physician title assistant. He was discharged home and accompanied by spouse. He left ambulatory and via private vehicle. Spouse driving. --18:26 01/17/21 Balbina Ramirez RN.Locked/Released at 01/17/2021 18:26 by Balbina Ramirez RN Name Value Range Interpretation Code Description Data Sera rce(s) Supporting Document(s) ID Date Data Source [id number] 01/17/2021 02:19:00 PM EDT [facility] 1 Clinical Report - Physicians/Mid Levels [facility] Emergency Department [address] [place] [address] Phone #: ext- [phone] 01/17/2021 13:55 Patient: GALLITO HERNANDEZ Sex: M [...] Loop recorder. Medications: 2 Clinical Report - Physicians/[facility] Emergency Department [address] [place] [address] Phone #: ext- [phone] 01/17/2021 13:55 Patient: GALLITO HERNANDEZ Sex: M : 1995 Age: 26y Metoprolol Succinate ER Oral (Tablet Extended Release 24 Hour 100 mg), daily. Xarelto Oral (Tablet 20 mg), daily. Allergies: [employer] (Diagnostic). Avocado (Diagnostic).SOCIAL HISTORYSmoker- current status unknown. [...] is 3 Clinical Report - Physicians/Mid Levels [facility] Emergency Department [address] [place] [address] Phone #: eip- [phone] 01/17/2021 13:55 Patient: GALLITO HERNANDEZ Sex: M [...] tablet. Refills: 0. Substitution permitted. Pharmacy - [facility] [phone] ; [place] [address]. . Understanding of the discharge instructions verbalized by patient. Expected course of injury, discharge instructions, activity level, prescriptions x1, follow-up appointment and risks and benefits of treatment reviewed with patient and understanding verbalized. Agrees to plan of care. Follow-up with: [facility], , , [id number] [place] [address], , [place], [address] Follow up in one day even if well. Call for the next available appointment. Reason for referral: evaluation and recommend MRI LS spine and referral to ortho spine . Summary of care provided to patient via paper. 4 Clinical Report - Physicians/Mid Levels [facility] Emergency Department [address] [place] [address] Phone #: ext- [phone] 01/17/2021 13:55 Patient: GALLITO HERNANDEZ Sex: M : 1995 Age: 26y(Electronically signed by MARYAN Velasco 01/17/2021 18:46) Name Value Range Interpretation Code Description Data Sera rce(s) Supporting Document(s) ID Date Data Source [id number] 01/12/2021 11:26:00 AM EDT [facility] 1 OrderSheet [facility] Emergency Department [address] [place] [address] Phone #: dxr- [phone] 01/12/2021 11:19 Patient: GALLITO MONTGOMERY Sex: M [...] rce(s) Supporting Document(s) ID Date Data Source [id number] 01/12/2021 11:26:00 AM EDT [facility] 1 Medication Reconciliation Report [facility] Emergency Department [address] [place] [address] Phone #: ext- [phone] 01/12/2021 11:19 Patient: [...] Dispense 30 tablet. Refills:0. Substitution permitted.Pharmacy - [facility] [employer] [address] [facility] ; [place] [address]. .prednisone 10 mg tablet Take 4 tablet once a day for 10 days -- x 2 days then 3 tabs daily x 2 daysthen 2 tabs daily x 2 days then 1 tab daily x 2 days. Dispense 30 tablet. Refills: 0. Substitution permitted.Pharmacy - [facility] [employer] [address] [facility] ; [place] [address]. . 2 Medication Reconciliation Report [facility] Emergency Department [address] [place] [address] Phone #: ext- [phone] 01/12/2021 11:19 Patient: GALLITO MONTGOMERY Sex: M : 1995 Age: 26yPercocet 5 mg-325 mg tablet Take 1 tablet four times a day for 3 days -- as needed for pain. Veqnrnyd08 tablet. Refills: 0. Substitution permitted.Pharmacy - [facility] [id number] ; [place] [address]. . -- Giorgi Menjivar Name Value Range Interpretation Code Description Data Sera rce(s) Supporting Document(s) ID Date Data Source [id number] 01/12/2021 11:26:00 AM EDT [place] [address] Medication Administration Record [facility] Emergency Department [address] [place] [address] Phone #: ext- [phone] 01/12/2021 11:19 Patient: GALLITO MONTGOMERY Sex: M [...] rce(s) Supporting Document(s) ID Date Data Source [id number] 01/12/2021 11:26:00 AM EDT [facility] 1 General Instructions [facility] Emergency Department [address] [place] [address] Phone #: ext- [phone] 01/12/2021 11:19 Patient: [...] Dispense 30 tablet. Refills:0. Substitution permitted.Pharmacy - [facility] [employer] - [address] [facility] ; [place] [address]. .prednisone 10 mg tablet Take 4 tablet once a day for 10 days -- x 2 days then 3 tabs daily x 2 daysthen 2 tabs daily x 2 days then 1 tab daily x 2 days. Dispense 30 tablet. Refills: 0. Substitution permitted.Pharmacy - [facility] [employer] [facility] - [address] [facility] ; [place] [id number]. .Percocet 5 mg-325 mg tablet Take 1 tablet four times a day for 3 days -- as needed for pain. Pvfaggnn54 tablet. Refills: 0. Substitution permitted.Pharmacy - [facility] [phone] ; [place] [address]. .Follow-up: Follow up with your healthcare provider in three days if not better. Reason for referral: evaluation.Summary of care provided to patient via paper. Screening today revealed the patient's blood pressure indra in the hypertensive stage 2 range. The patient should follow up with a primary care provider for bloodpressure management. ADDITIONAL INFORMATION 2 General Instructions [facility] Emergency Department [address] [place] [address] Phone #: ext- [phone] 01/12/2021 11:19 Patient: ULISES GALLITO Orta Violeta RN: [id number] [id number] Sex: M : 1995 Age: 26ySciaticaSciatica is [...] howsevere your symptoms are. 3 General Instructions [facility] Emergency Department [address] [place] [address] Phone #: ext- [phone] 01/12/2021 11:19 Patient: [...] your back or spine 4 General Instructions [facility] Emergency Department [address] [place] [address] Phone #: ext- [phone] 01/12/2021 11:19 Patient: GALLIOT MONTGOMERY Sex: M : 1995 Age: 26y [id number] [employer]. [address] [place] [address]. All rights reserved. This information is not intended as asubstitute for professional medical care. Always follow your healthcare professional's instructions. You have been given the following additional information: Sciatica Do not work for one day.(Electronically signed by Giorgi Menjivar 01/13/2021 03:27) Name Value Range Interpretation Code Description Data Sera rce(s) Supporting Document(s) ID Date Data Source [id number] 01/12/2021 11:26:00 AM EDT [facility] 1 Clinical Report - Nurses [facility] Emergency Department [address] [place] [address] Phone #: ext- [phone] 01/12/2021 11:19 Patient: [...] [place] mri done and it showed bulging discs. pt reports he has a hx of a-fib so he was notgiven medications for pain.).Triage time: 11:25 01/12/2021. Acuity: LEVEL 3.This started yesterday. Onset. (sitting at rest).Treatment PATIENT CARE:(pt states "i hate pills, so i didn't [...] Gil R.N. Xarelto Oral. --12:29 01/12/21 Monika MenjivarIlmond. --11:29 01/12/21 Hui Gil R.N.[place]. --11:29 01/12/21 Hui Gil R.N.PROBLEMS:Spinal imginement.Bulging discs. --11:30 01/12/21 Hui Gil R.N.Loop recorder.Atrial Fibrillation. --11:34 01/12/21 Hui Gil R.N.Medication/allergy information source: the patient. --11:31 01/12/21 Hui Gil R.N.ADDITIONAL SURGERIES:Ablation X2.Loop recorder. --11:30 01/12/21 Hui Gil R.N. 2 Clinical Report - Nurses [facility] Emergency Department [address] [place] [address] Phone #: ext- [phone] 01/12/2021 11:19 Patient: [...] sinceincident 4 weeks ago when seen in [facility] ED and MRI done per patient. [...] verified and 3 Clinical Report - Nurses [facility] Emergency Department [address] [place] [address] Phone #: ext- [phone] 01/12/2021 11:19 Patient: [...] Patient transported to radiology by wheelchair with radiology interventional physician. --12:09 01/12/21 Shanda Gonsales R.N.DISPOSITION / DISCHARGE Condition at departure: improved and stable. No learning barriers present. Discharge instructions provided and reviewed with the patient. Reviewed medication(s) side effects, precautions, dosing and course information. Prescription(s) sent electronically to pharmacy. Work note given. Patient verbalized understanding. Written instructions provided in American. The patient was discharged by the physician. [...] rce(s) Supporting Document(s) ID Date Data Source [id number] 01/12/2021 11:26:00 AM EDT [facility] 1 Clinical Report - Physicians/Mid Levels [facility] Emergency Department [address] [place] [address] Phone #: ext- [phone] 01/12/2021 11:19 Patient: [...] bowel 1 moth ago was seen at [facility] and had an MRI which showed [...] Medications: Xarelto Oral. Alieve about 199901/11/2021. Allergies: [employer]. [place]. 2 Clinical Report - Physicians/Mid Levels [facility] Emergency Department [address] [place] [address] Phone #: ext- [phone] 01/12/2021 11:19 Patient: [facility]ALLITO [facility]TGOM[id number] Sex[facility] M : 1995 Age: 26ySOCIAL HISTORYFormer [...] has 3 Clinical Report - Physicians/Mid Levels [facility] Emergency Department [address] [place] [address] Phone #: ext- [phone] 01/12/2021 11:19 Patient: [facility]ALL[facility]O [id number] Sex: M : 1995 Age: 26y a [...] tablet. Refills: 0. Substitution permitted. Pharmacy - [facility] [employer] [address] [facility] ; [place] [address]. . prednisone 10 mg tablet Take 4 tablet once a day for 10 days -- x 2 days then 3 tabs daily x 2 days then 2 tabs daily x 2 days then 1 tab daily x 2 days. Dispense 30 tablet. Refills: 0. Substitution permitted. Pharmacy - [facility] - [address] [facility] ; [place] [address]. . Percocet 5 mg-325 mg tablet Take 1 tablet four times a day for 3 days -- as needed for pain. Dispense 12 tablet. Refills: 0. Substitution permitted. Pharmacy - [facility] [address] ; [place] [id number]. Phone: . 4 Clinical Report - Physicians/Mid Levels [facility] Emergency Department [address] [place] [address] Phone #: ext- [phone] 01/12/2021 11:19 Patient: GALLITO MONTGOMERY Sex: M [...] rce(s) Supporting Document(s) ID Date Data Source [id number] 01/12/2021 02:58:00 [place] [address] PHONE: [phone] FAX: [phone] Name .................. : ULISES ZENDEJAS Acct Number.................. : [id number] ROOM. ................. : [place]- MR Number ................... : [id number] Stay type ............. : E/R Discharge Date......... ... : Admit Date ......... : 08/30 Admit Phys .................... : RETACO Date of ....... : 1995 Family Phys ................... : UNKNOWN CO Phone .................. : [phone] Age ................................ : 26 Film# .................. .:[id number] Sex ................................. : M Unsigned transcriptions are preliminary reports and do not represent a medical or legal document SPINE LS COMPLETE [id number] COMPLETE:01/12/21 11:40 [id number] Reason(s): Lower Back Pain LUMBOSACRAL SPINE 5 [...] rce(s) Supporting Document(s) ID Date Data Source [id number] 12/10/2020 12:16:59 PM EDT [facility] NT INFORMATIONPatient MRN Name Date of Age Gend*PT [id number] Gallito Hinojosa 1995 25 years M ---PT Location Admission Date/Time Visit ID Attending Provider --- --- --- --- EPI ID CSN Admitting Pro vider [id number] ---Cardiology Office VisitSubjectiveChief Complaint: Status post atrial [...] of having procedure completed [facility] due tonausea, vomiting, and diarrhea. He [...] Social Gatherings with Friends and Family: Attends Sikhism Services: Active Member of Clubs or Organizations: Attends Club or Organization Meetings: Marital Status:Intimate Partner Violence: Fear of Current or Ex-Partner: Emotionally Abused: Physically Abused: Sexually Abused:Medications and AllergiesAllergiesAllergen Reactions [employer] Meal Anaphylaxis Avocado AnaphylaxisCurrent Outpatient MedicationsMedication Sig [...] Final Testing site 11/16/2020 PERFORMED AT [address] [place] [address] Blood bank comment 11/16/2020 SEE NOTES Final [...] sinus rhythm. [facility] will call the office if [...] rce(s) Supporting Document(s) ID Date Data Source [id number] 11/30/2020 11:12:00 AM EDT [facility] Name Value Range Interpretation Code Description Data Sera rce(s) Supporting Document(s) Albumin [Mass/volume] in Serum or Plasma 4.0 [facility] ([facility]) Alanine aminotransferase [Enzymatic activity/volume] in Serum or Pl asma 32 [facility] ([facility]) Calcium [Mass/volume] in Serum or Plasma 9.5 [facility] ([facility]) Alkaline phosphatase [Enzymatic activity/volume] in Serum or Plasma 7 4 [facility] ([facility]) Carbon dioxide, total [Moles/volume] in Serum or Plasma 30 [facility] ([facility]) Chloride [Moles/volume] in Serum or Plasma 104 [facility] ([facility]) Potassium [Moles/volume] in Serum or Plasma 4.1 [facility] ([facility]) Protein [Mass/volume] in Serum or Plasma 7.6 [facility] ([facility]) Sodium 137 [facility] Aspartate aminotransferase [Enzymatic activity/volume] in Serum or Plasma 19 [facility] ([facility]) Urea nitrogen [Mass/volume] in Serum or Plasma 11 [facility] ([facility]) Creatinine For GFR 1.06 [facility] ([facility]) Glucose 77 70-100 [facility] ID Date Data Source [id number] 11/30/2020 11:12:00 AM EDT [facility]) Name Value Range Interpretation Code Description Data Sera rce(s) Supporting Document(s) Red Blood Count 5.28 4.70-6.20 [facility] ([facility]) White Blood Count 5.3 4.3-10.9 [facility] ([facility]) Platelets 153 130-400 [facility] ([facility] Hemoglobin 16.0 13.0-17.0 [facility] ([facility]) Hematocrit 47.7 39.0-50.0 [facility] ([facility]) ID Date Data Source [id number] 11/21/2020 11:09:00 AM EDT [facility] Name Value Range Interpretation Code Description Data Sera rce(s) Supporting Document(s) Magnesium Level 2.1 [facility] ([facility]) Troponin 1.48 [facility] ([facility] ID Date Data Source [id number] 11/21/2020 11:09:00 AM EDT [facility] Name Value Range Interpretation Code Description Data Sera rce(s) Supporting Document(s) Sodium 140 [facility] Calcium [Mass/volume] in Serum or Plasma 9.1 [facility] ([facility]) Carbon dioxide, total [Moles/volume] in Serum or Plasma 26 [facility] ([facility]) Chloride [Moles/volume] in Serum or Plasma 107 [facility] ([facility]) Glucose 76 70-100 [facility] ([facility] Potassium [Moles/volume] in Serum or Plasma 4.1 [facility] ([facility]) Blood Urea Nitrogen 12 5-21 [facility] ([facility]) Glomerular filtration rate/1.73 sq M.pre dicted [Volume Rate/Area] in Serum or Plasma by Creatinine-based formula (MDRD) Laboratory test result [facility] Creatinine 0.93 0.6-1.5 [facility] ID Date Data Source [id number] 11/20/2020 07:17:20 AM EDT [facility] Name Value Range Interpretation Code Description Data Sera rce(s) Supporting Document(s) &PDF [facility] CHUCBo4lXgIFMhWd74/KLLbrNNNnl3HlYEhiABk9XEqcTREyL3TxyYarOFtLAC4dKvPGTVoRCGNjLCOU yZW [file] AgICAgICAgICAgICAgICAgICAgICAgICAgICAgICAgICAgICAgICAgICAgICAgICAgDQogICAgICAgIC AgICAgICAgICAgICAgICAgICAgICAgICAgICAgICAg ICAgICAgICAgICAgICAgICAgICAgICAgICAgICAgICAgICAgICAgICAgICAgICAgICAgICAgICAgICAg DQogICAgICAgICAgICAgICAgICAgICAgICAgICAgICAgICAgICAgICAgICAgICAgICAgICAgICAgICAg ICAgICAgICAgICAgICAgICAgICAgICAgICAgICAgIC AgICAgICAgICAgDQogICAgICAgICAgICAgICAgICAgICAgICAgICAgICAgICAgICAgICAgICAgICAgIC AgICAgICAgICAgICAgICAgICAgICAgICAgICAgICAgICAgICAgICAgICAgICAgICAgICAgDQogICAgIC AgICAgICAgICAgICAgICAgICAgICAgICAgICAgICAg ICAgICAgICAgICAgICAgICAgICAgICAgICAgICAgICAgICAgICAgICAgICAgICAgICAgICAgICAgICAg ICAgDQogICAgICAgICAgICAgICAgICAgICAgICAgICAgICAgICAgICAgICAgICAgICAgICAgICAgICAg ICAgICAgICAgICAgICAgICAgICAgICAgICAgICAgIC AgICAgICAgICAgICAgDQogICAgICAgICAgICAgICAgICAgICAgICAgICAgICAgICAgICAgICAgICAgIC AgICAgICAgICAgICAgICAgICAgICAgICAgICAgICAgICAgICAgICAgICAgICAgICAgICAgICAgDQogIC AgICAgICAgICAgICAgICAgICAgICAgICAgICAgICAg ICAgICAgICAgICAgICAgICAgICAgICAgICAgICAgICAgICAgICAgICAgICAgICAgICAgICAgICAgICAg ICAgICAgDQogICAgICAgICAgICAgICAgICAgICAgICAgICAgICAgICAgICAgICAgICAgICAgICAgICAg ICAgICAgICAgICAgICAgICAgICAgICAgICAgICAgIC AgICAgICAgICAgICAgICAgDQogICAgICAgICAgICAgICAgICAgICAgICAgICAgICAgICAgICAgICAgIC AgICAgICAgICAgICAgICAgICAgICAgICAgICAgICAgICAgICAgICAgICAgICAgICAgICAgICAgICAgDQ g7B1ywTUSjGALtUS0mBLr5Ga0+BAsXTrNjXIT7hpQq uY3SYJ5fi4LfUUulYDLqz1MhJVr4FT0FPGOpZPlfXY5GGGxhrb7NWBRmESRqxTQGu3twLrUoEHS5USRc FqhfOW7RXRNsY8paopClYQYgCPQFOUkhTNHYQNllXXAPTKYiRWDjIyMnYLobIN9Ay1GzvVN0ALh+Pg0K SU2wj6BnROnpRhPuXO8jus8LBSgAMhWwK2NbicO1YG OsWAQuYp7VIDAcLHZicKMlWlMzNTKQOoDwX4VhnZ76JKOFRb6+TToeqiSeLlaLMzMdYTYsg3IrPFa0HZ 3AUAQaEUt1uDZdHU3ynAGraOGeRVkfIP3FAXU4JIzmEARxADYDLM4UVIzeVGS7FrtzkkDufIEcEAnuBR 9QYXJlbnQgMjIgMCBSDQo+Ag6FHI3yl5SqTPrdARAj VR4sjr7LZYrZBrVmS7R2pFQzY6J2IUjaHz6TVQBdVMPzDkJoKJZMJIkaBP2KCF4kwiN3CA8LaJBvBJNs ZCMnpCXhAUx4A39nzUReDCkhVW2XOFV+Doroteo+Px5AQJBbOCNmLYIlJsUpCZXMRjXiF2CgG5BDw0MuN0Sy FN56nIyulxCvAHlgPZ0QTK0eKVWmUUQYOK8OyBAbbP 4ajjVcRtFpMPQVUxVjP98czWYqSAGpAYHeMLJpMa2NUNTwZ3KidyUztNgbtcLdOZFrGYTKHO4VSGqewl LbpDNwrEztEA02aXsuYO5HFo1CIzVjLK1xmj3IuRRwWa9FGXZvKQ8QHDYrBXZiFOZfTCL0GMMsKiIkUO faWXTxETLdDZD1WQCpKNNqUB6XRtErHXApZUw5ECOc XMNaPGPybk0LWOVxLIObSPChKMSnSCTiUBMoQUbiVKDcXCYvHSl8JVFpLUEbQA1IIiLjQKAsMOArRNBv VTCnVFQzqu2VWZVmOVTaNlXtNuWnVUPdJHDdZBgtVKWpEZZ4PiP3NJTnSVXaLX5LNyCkFPJyLVF3HDev DPYoLCBxaj5HYEHeEBWnKVWaPrCbMPDtJBZfPExjFV OaZZW3GlJ4UTPlABRxZO8IQoUpTVUnLOZrWOCwUDKdPEVlna9SVOWwVLXmPQP6DZHoWGDeGYPmMTfvZO ArDGTxWQT8HCWkFUGvLM6XSmFkFYTvVDI4NWXkWNZsHBFxkp1RKOUjEKUyYFi3JPNjRJStVBEsYHiyGL WnJYPjTSP8KCKzQIIdNG6CShErPRJkCAOhUiGrLAYv YWXljc3QOLKhJKTzVdK8MSNcOFXcXSJoBGbgKRJyYBI4FHJcOCJnNXPhLX5WKyPaFHYqREg4MrGuYENu XLEuyp4QNNGeCEYpKMG6MOVsSQTcUENdAGolPISsNOHjMrWgVDWaOSArFY5VKhYcBPJoToB9BLKbPGXz NAQrfu5CUTMzVPCyYXgzGrQqSMRhCYCwULi8dyEhdV FzQYw7VY6MQ9JfsqAvNqYRIy1Nv295PLV2EQIfZm8EF0reXg4yDNGlYEAAXf0NGXt1FHKxNbuiZcJ6QL RdNUYvNGu1LhSoKZA6OLE4FmH7NBY+XWsyAIS0U4YiVQl1VvY1WKRtUSpnNbZ7MMj8TLIdXaW9PV2mCU ANCj4+BQxvdZXxaUjrRNUWNfGeLKA1SNseFKLSRe3U ID Date Data Source [id number] 11/19/2020 11:45:51 AM EDT [facility] [place] NT INFORMATIONPatient MRN Name Date of Age Gend*PT [id number] Gallito Hinojosa 1995 25 years M [facility] Location Admission Date/Time Visit ID Attending Provider --- --- --- --- EPI ID CSN Admitting Pro vider [id number] ---Arterial Line PlacementPatient location during procedure: ORIndications [...] rce(s) Supporting Document(s) ID Date Data Source [id number] 11/19/2020 11:45:21 AM EDT [facility] NT INFORMATIONPatient MRN Name Date of Age Gend*PT [id number] Gallito Hinojosa 1995 25 years M [facility] Location Admission Date/Time Visit ID Attending Provider --- --- --- --- EPI ID CSN Admitting Pro vider [id number] ---AirwayPatient location during procedure: ORUrgency: electiveDifficult airway: [...] cmPlacement verified by: chest auscultation and + [id number]: CTA and equal breath sounds bilateralGrade view: grade IIa - partial view of glottis Name Value Range Interpretation Code Description Data Sera rce(s) Supporting Document(s) ID Date Data Source [id number] 11/19/2020 10:48:37 AM EDT [facility] INFORMATIONPatient MRN Name Date of Age Gend*PT [id number] Gallito Hinojosa 1995 25 years M [facility] Location Admission Date/Time Visit ID Attending ProviderCV-11 11/19/20 1035 --- Ward Durán MD([id number]) EPI ID CSN Admitting Provider [id number] Ward Durán MD([id number])H&P reviewed. The patient was examined and there are no changes to the H&P.Ward Durán MD10:48 AM Name Value Range Interpretation Code Description Data Sera rce(s) Supporting Document(s) ID Date Data Source [id number] 11/16/2020 10:08:39 AM EDT [facility] Name Value Range Interpretation Code Description Data Sera rce(s) Supporting Document(s) EKG [facility] KUXQXp1xRwTCSlGgm8NlFbIeTSRxYL9kjha9H8G4nQEfM0OrqJDdn7prI1LcZ8CmQKVbLFXXML9OiSKs jb2 [file] OTggMDAwMDAgbiAKMDAwMDAwMDQwOSAwMDAwMCBuIA wpNEFaJSElEWRlKLZiWOQsVX8mScBrKDMpQHP9OSBqYITyTOFwdrRYLPNrMUVmWQv3UUGdFBBpOYYhDP iiBJYzOQNfAWO1BJHiPFLwVW1wFhToGMPfPCH3HaSfSYLwUGCxnfHDGPCvVCIlWCR1HrRkTSPpCSYzUK kzRYRaFMPrFAbjPFQqLDXyWE9dClSoMDQqNFGdAHxa PNMhYFLginUTBVAlBLBqBJVkViYuEVUcVYIyWFceNYMdWJBcWkY2YWOvPPReUZ9dUlDbKNJhQYX1KWgo DKCnRWHcqzDOFDNuDIPuBDvwABPkEMLoSCVtNTqqFIAmBNChSWB2PHNmYSTiYL0aTbKdUMCrCQQnJHBc LtZ4SpEjMcJRsSIbyGszjgb7NVdpV1r7DICzTUveHD 1wxiFlHNIjDohtLc9zpOV1BAEqUgjRPk8Ay1JbesH3ejIeNnZcPkPbMgAdZJ8S ID Date Data Source [id number] 11/16/2020 09:13:47 AM EDT [facility] NT INFORMATIONPatient MRN Name Date of Age Gend*PT [id number] Chandler Camargo Gallito Orta 1995 25 years M [facility] Location Admission Date/Time Visit ID Attending Provider --- --- --- Violeta Ortega([id number]) EPI ID CSN Admitting Provider [id number] ---OUTPATIENT / OBSERVATIONAL SURGICAL OR INVASIVE PROCEDUREName: Gallito Camargo : 1995 Sex: male [facility] Dr. HopperHISTORY OF PRESENT ILLNESS: Mr Camargo is a 25 years old -[place] Islander malewith history of depression, anxiety, GERD, and [...] RECORDER 08/2020 WISDOM TOOTH EXTRACTION localALLERGIES:AllergiesAllergen Reactions [employer] Meal Anaphylaxis Avocado AnaphylaxisMEDICATIONS:Prior to Admission medicationsMedication [...] thyromegaly. No carotid bruits.MENTAL / NEUROLOGICAL STATUS: GFMp5MWRCZ: Clear to auscultation. No wheezes, rhonchi or crackles.HEART: Rate rhythm regular. S1, S2. No murmur, rub or gallop.ABDOMEN: Bowel sounds positive times four. Soft, non tender. No reboundtenderness. No hepatosplenomegaly. Negative CVAT.EXTREMITIES: Pulses are symmetrical. NO edema.Anesthesia complications: [facility]iesPROTESTANT [facility] Frailty Scale :: 3/10 Managing Well [...] parts of this document, were dictated using Ventealapropriete speaking software. A reasonable attempt at proofreading has beenmade to minimize errors. Please call with any questions or corrections.* Name Value Range Interpretation Code Description Data Sera rce(s) Supporting Document(s) ID Date Data Source [id number] 11/16/2020 05:46:21 PM EDT [facility] SPEC EXP DATE 11/20/2020ATI ENT ABO/Rh O POSITIVEANTIBODY SCREEN NEGATIVETESTING SITE PERFORMED AT [address] [place], [place] [address]BLOOD BANK COMMENT BLOOD TYPE CONFIRMED. Name Value Range Interpretation Code Description Data Sera rce(s) Supporting Document(s) TYPE AND SCREEN [facility] MIC ID Date Data Source [id number] 11/16/2020 04:03:58 PM EDT [facility] Name Value Range Interpretation Code Description Data Sera rce(s) Supporting Document(s) WBC 3.7 10*3/uL (4.1-11.0) L [facility] RBC 4.93 10*6/uL (4.60-6.10) [facility] HGB 15.3 g/dL (13.5-18.0) [facility] HCT 45.9 % (41.0-53.0) [facility] MCV 93.3 fL (80.0-95.0) [facility] MCH 31.0 pg (27.0-32.0) [facility] MCHC 33.2 g/dL (32.0-36.0) [facility] RDW 13.7 % (10.5-14.5) [facility] PLT 149 10*3/uL (150-450) L [facility] MPV 11.0 fL (7.1-10.7) H [facility] ID Date Data Source [id number] 11/16/2020 03:47:26 PM EDT [facility] Name Value Range Interpretation Code Description Data Sera rce(s) Supporting Document(s) SODIUM 140 mmol/L (136-145) [facility] POTASSIUM 4.3 mmol/L (3.6-5.2) [facility] CHLORIDE 104 mmol/L (100-108) [facility] CO2 32 mmol/L (22-31) H [facility] ANION GAP 4 mmol/L (7-16) L [facility] UREA NITROGEN 14 mg/dL (7-24) [facility] CREATININE 1.01 mg/dL (0.80-1.30) [facility] BUN/CREAT RATIO 13.9 RATIO (10.0-20.0) [facility] GLUCOSE 89 mg/dL (70-99) [facility] CALCIUM 9.3 mg/dL (8.4-10.2) [facility] GFR >60 ml/min/1.73m2 (>59) [facility] GFR ( AMER) >60 ml/min/1.73m2 (>59) [facility] GFR INTERPRETATION [facility] --NORMAL KIDNEY FUNCTION OR MILD DISEASE - GFR >OR= 60CHRONIC KIDNEY DISEASE - GFR 15 - 59RENAL FAILURE - GFR <15 Est. GFR calculation based on the MDRDstudy equation, which assumes a steadystate for creatinine. Est. GFR should notbe used for medication dosing. ID Date Data Source [id number] 09/23/2020 04:40:52 PM EDT [facility] NT INFORMATIONPatient MRN Name Date of Age Gend*PT [id number] Gallito Hinojosa 1995 25 years M ---PT Location Admission Date/Time Visit ID Attending Provider --- --- --- --- EPI ID CSN Admitting Pro vider [id number] ---[facility] [id number] [facility] [address], [address] (First Floor)[place], [place] [address]Ub.: Fax: Oatient: Gallito Camargo : 1995Date: 09/23/20CARDIOLOGY TELEMEDICINE VISITPatient was identified by name and date of .Verbal consent was obtained from the patient for this telemedicine visit.Patient is aware of the risks, limitations, and benefits of a telemedicinevisit.This telemedicine assessment was conducted remotely with the assistance of[employer] communication technology. Telephone Only Codes 50823: 21-30 minutesof medical discussion: Telephone Only .Subjective:Gallito [...] and benefitsFollow Up cryoablationSignature: Ward Durán MD, [facility], RSCardiac Electrophysiology and Arrhythmia ServiceDate: September 23, 2020Time: 4:37 PMThis document or parts of this document, were dictated using Bolong[employer] Trevorware. A reasonable attempt at proofreading has been made to minimize errors.Please call with any questions or corrections. Name Value Range Interpretation Code Description Data Sera rce(s) Supporting Document(s) ID Date Data Source [id number] 08/17/2020 11:31:00 AM EST [place] Name Value Range Interpretation Code Description Data Sera rce(s) Supporting Document(s) SARS coronavirus 2 RNA Not Detected [place] [place] This lab was ordered by [facility] and reported by [facility]. ID Date Data Source [id number] 07/09/2020 03:02:00 PM EST [facility] ([facility]) Name Value Range Interpretation Code Description Data Sera rce(s) Supporting Document(s) Calcium [Mass/volume] in Serum or Plasma 9.3 [facility] ([facility]) Sodium 141 [facility] ([facility]) Chloride [Moles/volume] in Serum or Plasma 103 [facility] ([facility]) Carbon dioxide, total [Moles/volume] in Serum or Plasma 32.5 [facility] ([facility]) Potassium [Moles/volume] in Serum or Plasma 4.20 [facility] ([facility]) Glucose 120 74-106 [facility] ([facility]) Blood Urea Nitrogen 11 7-18 [facility] ([facility]) Creatinine 1.05 0.70-1.30 [facility] ([facility]) Glomerular filtration rate/1.73 sq M.pre dicted [Volume Rate/Area] in Serum or Plasma by Creatinine-based formula (MDRD) 99.6 [facility] ([facility]) ID Date Data Source [id number] 06/24/2020 11:06:40 AM EST [facility] NT INFORMATIONPatient MRN Name Date of Age Gend*PT [id number] Gallito Hinojosa 1995 25 years M ---PT Location Admission Date/Time Visit ID Attending Provider --- --- --- --- EPI ID CSN Admitting Pro vider [id number] ---[facility] [id number] [facility], [address] (First Floor)[place], [place] [address]Yd.: Fax: Catient: Gallito Camargo : 1995Date: 06/24/20CARDIOLOGY TELEMEDICINE VISITPatient was identified by name and date of .Verbal consent was obtained from the patient for this telemedicine visit.Patient is aware of the risks, limitations, and benefits of a telemedicinevisit.This telemedicine assessment was conducted remotely with the assistance of[employer] communication technology. Telephone Only Codes 31151: 21-30 minutesof medical discussion: Telephone Only .Subjective:Gallito [...] all. [place]. I am not sure he is having anyatrial fibrillation at all. I am not sure any of his symptoms already beencardiac in nature. This may all be anxiety driven. However we will need tocorrelate symptoms to his underlying cardiac rhythm. We will arrange for thepatient to have a 30-day event monitor done [place] If the event monitor shows atrial fibrillation [...] event monitor shows atrialfibrillationSignature: Ward Durán MD, [facility], ChristianaCaredi Electrophysiology and Arrhythmia ServiceDate: June 24, 2020Time: 11:02 AMThis document or parts of this document, were dictated using Dragon speakingsoftware. A reasonable attempt at proofreading has been made to minimize errors.Please call with any questions or corrections. Name Value Range Interpretation Code Description Data Sera rce(s) Supporting Document(s) ID Date Data Source [id number] 05/22/2020 12:50:00 PM EST [facility] ([facility] Name Value Range Interpretation Code Description Data Sera rce(s) Supporting Document(s) Troponin Laboratory test result [facility] ([facility]iology [facility]) ID Date Data Source [id number] 05/22/2020 12:50:00 PM EST [facility] ([facility]) Name Value Range Interpretation Code Description Data Sera rce(s) Supporting Document(s) White Blood Count 4.5 4.0-10.0 [facility] ([facility]) Red Blood Count 5.33 4.30-6.10 [facility] ([facility]) Platelets 168 150-450 [facility] ([facility]) Hemoglobin 15.7 [facility] ([facility]) Hematocrit 48.2 [facility] ([facility]) ID Date Data Source [id number] 05/22/2020 12:50:00 PM EST [facility] ([facility]) Name Value Range Interpretation Code Description Data Sera rce(s) Supporting Document(s) Calcium [Mass/volume] in Serum or Plasma 9.7 [facility] ([facility]) Sodium 138 [facility] ([facility]) Carbon dioxide, total [Moles/volume] in Serum or Plasma 30 [facility] ([facility]) Potassium [Moles/volume] in Serum or Plasma 4.4 [facility] ([facility]) Chloride [Moles/volume] in Serum or Plasma 104 [facility] ([facility]) Blood Urea Nitrogen 14 7-18 [facility] ([facility]) Glucose 70 70-100 [facility] ([facility]) Glomerular filtration rate/1.73 sq M.pre dicted [Volume Rate/Area] in Serum or Plasma by Creatinine-based formula (MDRD) Laboratory test result [facility] ([facility]) Creatinine 1.06 0.70-1.30 [facility] ([facility]) ID Date Data Source [id number] 04/02/2020 02:04:26 PM EDT [facility]PAT[facility] NT INFORMATIONPatient MRN Name Date of Age Gend*PT [id number] Gallito Hinojosa 1995 25 years M ---PT Location Admission Date/Time Visit ID Attending Provider --- --- --- --- EPI ID CSN Admitting Pro vider [id number] ---Cardiology Office NoteName: Gallito Camargo Gender: maleDate of : 1995 Age: 25 yearsPrimary Care Provider / Referring Physician: [facility]rkatheryn HistoryChief Complaint: Follow-up to recent cryoablation for atrial fibrillationHPI:This patient is a 25 years male presents today for follow-up. He has thefollowing medical problem list:1. Paroxysmal atrial fibrillation; status post cryoablation 03/20/2020Patient presents today for follow-up. He tells me that he did have episode ofchest pain and feeling short of breath postprocedure. [facility] He states that those symptoms have [...] file Gets together: Not on file Attends latter-day service: Not on file Active member of [...] History Narrative Not on fileMedications and AllergiesALLERGIES/SENSITIVITIES: [employer] meal and AvocadoCurrent Outpatient Medications: metoprolol tartrate [...] parts of this document, were dictated using Motivan[employer]are. A reasonable attempt at proofreading has been made to minimize errors.Please call with any questions or corrections. Name Value Range Interpretation Code Description Data Sera rce(s) Supporting Document(s) ID Date Data Source [id number] 03/24/2020 12:46:00 PM EDT [facility] ([facility]) Name Value Range Interpretation Code Description Data Sera rce(s) Supporting Document(s) Free T4 1.05 [facility] ([facility]) Thyroid Stimulating Hormone 0.923 ME DENT ([facility]) ID Date Data Source [id number] 03/24/2020 12:46:00 PM EDT [facility] ([facility]) Name Value Range Interpretation Code Description Data Sera rce(s) Supporting Document(s) Aspartate aminotransferase [Enzymatic activity/volume] in Serum or Plasma 24 [facility] ([facility]) Alkaline phosphatase [Enzymatic activity/volume] in Serum or Plasma 7 3 [facility] ([facility]) Alanine aminotransferase [Enzymatic activity/volume] in Serum or Pl asma 45 [facility] ([facility]) Protein [Mass/volume] in Serum or Plasma 7.6 [facility] ([facility]) Bilirubin.direct [Mass/volume] in Serum or Plasma Laboratory test res ult [facility] ([facility]) Bilirubin.total [Mass/volume] in Serum or Plasma 0.4 [facility] ([facility]) Albumin [Mass/volume] in Serum or Plasma 4.0 [facility] ([facility]) Cholesterol [Mass/volume] in Serum or Plasma Laboratory test result [facility] ([facility]) ID Date Data Source [id number] 03/24/2020 12:46:00 PM EDT [facility] ([facility]) Name Value Range Interpretation Code Description Data Sera rce(s) Supporting Document(s) Calcium [Mass/volume] in Serum or Plasma 9.6 [facility] ([facility]) Sodium 138 [facility] ([facility]) Carbon dioxide, total [Moles/volume] in Serum or Plasma 30 [facility] ([facility]) Potassium [Moles/volume] in Serum or Plasma 4.1 [facility] ([facility]) Chloride [Moles/volume] in Serum or Plasma 103 [facility] ([facility]) Blood Urea Nitrogen 11 7-18 [facility] ([facility]) Glucose 95 70-100 [facility] ([facility]) Creatinine 0.98 0.70-1.30 [facility] ([facility]) Glomerular filtration rate/1.73 sq M.pre dicted [Volume Rate/Area] in Serum or Plasma by Creatinine-based formula (MDRD) Laboratory test result [facility] ([facility]) ID Date Data Source [id number] 03/24/2020 12:46:00 PM EDT [facility] ([facility]) Name Value Range Interpretation Code Description Data Sera rce(s) Supporting Document(s) White Blood Count 5.1 4.0-10.0 [facility] ([facility]) Red Blood Count 5.06 4.30-6.10 [facility] ([facility]) Platelets 132 150-450 [facility] ([facility]) Hemoglobin 15.4 [facility] ([facility]) Hematocrit 46.5 [facility] ([facility]) ID Date Data Source [id number] 03/20/2020 10:39:41 AM EDT [facility] Name Value Range Interpretation Code Description Data Sera rce(s) Supporting Document(s) &PDF [facility] MBMFCc8kBlHOTdUh32/ADOarEXXnu3JfMYeeMUu5BQpoACVfD8RhjJkwDVaIDU0pWyTVGRtDPTMpIDMK yZW K1b8NfWVTnWpGYyGX2BW2eWLOvdxEjdrT7gK5pJV4VVJJ+Kv5PMI4tw6AfMPb1YJKmj0IoEFodITd1F4 EawXOgihYjSybqjYCMFMMoVNEzL0ibwqk0iAUmOiD6Tj6FHuBxc6MwIQPyDUkZsnGtC3/jNhZ+X6D/gc A+dAo0MW+nhCNv0mldbmxDRALHraQAI5ZRCS6qQ1HO iLevu2JdqZgnJYiRBRjBPyVmnk5b8hvQKdKQbY6/oOMwwBgj/mF7CJYS7yY17a9lg1dVZzfws6Fg/TkQ sAhXRquTvrhpXKJ9ofInZlziRKhhCYBdkBFqGP5f8FrGybkrlHFGYlezv+riEnEZMHREBeZotngz/Q7N /lqR8obFlRkAaWIqa6YfAwUJfu+QTjhTPoAQ4JXA3d NB49O5U8RoaqveBMVwtLAFrA23A0SzXZoUkvxRyNJRHP3M4Th4459PssQiAzZKSl1wKscTYh+l849oao uwRF5bEmis9+X5zJ/RrAnYTxblOnsxqhNelOsMlLKIXmfP6O8kkqbEZfxabXTSC7tB/OdB4SuIJQObiZ TVDxi6iKzWdxC8H2M6HirK+Ut46y+xkGKydfJELl4M p83SUIRqsKLILhYDrZAOBOFXtMZNKYCP0j0LeGMSFMRiheZ92BglemlVB1hrOIEL3WtdpA0JywMUJYKX [file] H6ElJvLKBvBJM0PWKbGxoyQz8mUWAGIp3+DNnvjLQicTvcGJTTMpS6KjQ7JGmcYWCIDo9J ID Date Data Source [id number] 03/20/2020 09:48:22 AM EDT [facility] [place] NT INFORMATIONPatient MRN Name Date of Age Gend*PT [id number] Gallito Hinojosa 1995 25 years M HOPPT Location Admission Date/Time Visit ID Attending Provider --- --- --- --- EPI ID CSN Admitting Pro vider [id number] ---Arterial Line PlacementPatient location during procedure: ORIndications [...] rce(s) Supporting Document(s) ID Date Data Source [id number] 03/20/2020 09:47:46 AM EDT [facility] [place] NT INFORMATIONPatient MRN Name Date of Age Gend*PT [id number] Gallito Hinojosa 1995 25 years M HOPPT Location Admission Date/Time Visit ID Attending Provider --- --- --- --- EPI ID CSN Admitting Pro vider [id number] ---AirwayPatient location during procedure: ORUrgency: electiveDifficult airway: [...] cmPlacement verified by: chest auscultation and + UTOR5Qroxgwotnube: equal breath sounds bilateral and CTAGrade view: grade I - full view of glottis Name Value Range Interpretation Code Description Data Sera e(s) Supporting Document(s) ID Date Data Source [id number] 03/20/2020 08:48:41 AM EDT [facility] NT INFORMATIONPatient MRN Name Date of Age Gend*PT [id number] Gallito Hinojosa 1995 25 years M HOPPT Location Admission Date/Time Visit ID Attending ProviderCV-05 03/20/20 0756 --- Ward Durán MD([id number]) EPI ID CSN Admitting Provider [id number] Ward Durán MD([id number])H&P reviewed. The patient was examined and there are no changes to the H&P.Ward Durán MD8:48 AM Name Value Range Interpretation Code Description Data Sera rce(s) Supporting Document(s) ID Date Data Source [id number] 03/15/2020 08:21:00 AM EDT [facility] Name Value Range Interpretation Code Description Data Sera rce(s) Supporting Document(s) SARS coronavirus 2 [facility] This lab was ordered by [facility] and reported by [facility]. ID Date Data Source [id number] 03/17/2020 03:07:40 AM EDT [facility] Name Value Range Interpretation Code Description Data Sera rce(s) Supporting Document(s) SARS-COV-2 MY[facility] Not DetectedReference range: Not Detecte d This nucleic acid amplification test was developed and its performance characteristics determined by [employer]. Nucleic acid amplification tests include PCR and [...] result in this assay. Performed At: [facility] [address] [place] [address] [id number] Jorge Fernando MD Ph:[phone] ID Date Data Source [id number] 03/13/2020 01:31:20 PM EDT [facility] NT INFORMATIONPatient MRN Name Date of Age Gend*PT [id number] Gallito Hinojosa 1995 25 years M OPPT Location Admission Date/Time Visit ID Attending Provider --- --- --- Violeta Ortega([id number]) EPI ID CSN Admitting Provider [id number] ---OUTPATIENT / OBSERVATIONAL SURGICAL OR INVASIVE PROCEDUREName: Gallito Camargo : 1995 Sex: male Care Provider: [facility] CareAttending Physician: Dr. Durán.HISTORY OF PRESENT ILLNESS: 25 years old black male with a 3-year history ofpalpitations, shortness of breath and syncope related to a diagnosis of atrialfibrillation. 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 His last syncopal episode was inD2018. He [...] Laterality Date WISDOM TOOTH EXTRACTION localALLERGIES:AllergiesAllergen Reactions [employer] Meal Anaphylaxis Avocado AnaphylaxisMEDICATIONS:Prior to Admission medicationsMedication [...] thyromegaly. No carotid bruits.MENTAL / NEUROLOGICAL STATUS: [id number]: Clear to auscultation. No wheezes, rhonchi or crackles.HEART: Rate rhythm regular. S1, S2. No murmur, rub or gallop.ABDOMEN: Bowel sounds positive times four. Soft, non tender. No reboundtenderness. No hepatosplenomegaly. Negative CVAT.EXTREMITIES: Pulses are symmetrical. No edema.Anesthesia complications: [facility] Frailty [facility] :: 1/10 Very Fit (robust, active, energetic, well motivatedand fit.These people commonly exercise regularly and are in the most fit groupfor their age).Stop Bang Questionnaire - Total Score:STOP-Bang Total Score: 2ASSESSMENT: Paroxysmal atrial fibrillationPLAN: Procedure: Atrial fibrillation ablation and transesophageal echo.03/13/2020 1:31 PMHarini Hopper document or parts of this document, were dictated using [email or web address] software. A reasonable attempt at proofreading has beenmade to minimize errors. Please call with any questions or corrections.* Name Value Range Interpretation Code Description Data Sera rce(s) Supporting Document(s) ID Date Data Source [id number] 03/13/2020 12:40:00 PM EDT [facility] ([facility]) Name Value Range Interpretation Code Description Data Sera rce(s) Supporting Document(s) Red Blood Count 5.10 [facility] ([facility]) White Blood Count 4.0 [facility] ([facility]) Platelets 130 [facility] ([facility]) Hemoglobin 15.9 [facility] ([facility]) Hematocrit 47.3 [facility] ([facility]) ID Date Data Source [id number] 03/13/2020 12:40:00 PM EDT [facility] ([facility]) Name Value Range Interpretation Code Description Data Sera rce(s) Supporting Document(s) Sodium 140 [facility] ([facility] Carbon dioxide, total [Moles/volume] in Serum or Plasma 33 [facility] ([facility]) Calcium [Mass/volume] in Serum or Plasma 9.5 [facility] ([facility]) Chloride [Moles/volume] in Serum or Plasma 104 [facility] ([facility]) Glucose 85 [facility] ([facility]) Blood Urea Nitrogen 11 [facility] ([facility]) Potassium [Moles/volume] in Serum or Plasma 4.1 [facility] ([facility]) Glomerular filtration rate/1.73 sq M.pre dicted [Volume Rate/Area] in Serum or Plasma by Creatinine-based formula (MDRD) Laboratory test result [facility] ([facility]) Creatinine 1.02 [facility] ([facility]) ID Date Data Source [id number] 03/13/2020 12:11:56 PM EDT [facility] Name Value Range Interpretation Code Description Data Sera rce(s) Supporting Document(s) EKG [facility] ODQYPr6rNrXFOdVvn9EaApNzBVMjAQ2zclg2Y2F1dRUcH1PijNGej9cbY0CaP8PpHNFqPKYUOQ2SdJEo jb2 [file] f/social services assistant/4///xFPz3/FusD60o38Cu3A/Je3NLvv/nwjO2P71H+zstT2GRT+SyM/9yz+PIRSP/cs/i/P8L/ 927Me45q0z/7OP25ttd/sVrpwVLmjac49AX01yi+1P 2exX/4v2fxH/CexZeap+zaEe1lyif/HQzoYiYNXPlgKUMxRSbzfZeIHWUAO6HGlDZdFqOQhaIJVPLcAk t34AGD074lCfIUtempy0fj7AUs6fZ2v/+AvFIIKkEyqHningzKexZ/Gm3mZwivNH9/7ln8X+SNf+5Z/J +j+z/8RQ9LjnKwTEUuyPGqoNX3pecMZ+eFe4NVQJHB MB+SDQlKEGUmF6MA5ii36Ek48GdwjKQtP5C4JH0MIYEKkQbNmdIhiR8iPCrSRgiI+yEIgkJABpsMNhls ZfhokGlir8A6PeBjOEPYvQL9zeQqVQRQULLQBIxCJFCQEZzYFVHXZUoOQJNNLHXhMMGXmRQHWSEPWjAT [file] 0p83Lp5kHxtxrPl384hWn201Ba2/P98/ob9czIPrZ4z662TUb13y4w3F8f08pLH7f0h2A8bj7l2/Pxv/ KZ9/38/7juzzHuXfym+9I1wr4WFcKV+LW5xC2x0oz1oKeRYvBGSaGJzOB9cD6RgvHsr5RjeG3LupG3Mj oN7o3/45h+Vl0xJ3lefhmruitQMzzvANunLRuuxuWx k4oN4Otanmhmd0ol9Jffkajgn4ug0Mjicuvhybaq4iaAvq4zV8Q+ptGN+I5I4W17ommrb2k77P1r00rh MfnYN/3hl828SjX8cqJCRpQin/4uEnPUvvWe77p1T4I/080M8D/TzQzwPjOzG+E+7lmS1RvoiyP7UfEw Z91KuT03gi018Zf4YHIOlrwgb/9if/dMjq4Xzk9yru 1b3g224OzmSLnkSrn6hccIbzvaspjd3tWKbwbt97P+R5uA0943wzD0Z5ji+5I3Nn5e2QUwk94xG3VhTV 5RPirqew0OEJhuxU20043sMCtp/1jvz3U+5CY7wlG1OXaBdveTam6k52237x1EKxHO+HD3wS2KGe/h1w 2iuVA+XycoC+FjsSZv8q6z8LD+Jeu1wN07g1R6321/ zjw6QOpYl3xi2cgOZvnQsik+/hS7UThn2/I//i93x/Pz1Zne/ice skating coach+noI6sM8GDn/t1MwnaRL3LyUaqb2X [file] 66Jg7f2P40eX+/JVh/nieSjGZDvksiqmbY3b1C8 [file] 32PVP7ITGsd594C47nQ5XhruGboEe3i28/94mML0+Z eJz+lu8sFjvX5T4lN7IeJ46qY+3IagiS+Qw6i/4U3uOoM5PaegwRMqosP9jrRDK9fI0oOzaYtt/g80s9 cbIsZoAMT8vhWvpLbnthGpQfzHAVerPCUdLnt9BA6KbVOzSIJmU5M7YGBkmp0aKXBcCEQqwYHsYfKlGD JKIH8VyLXaBT8SSCb1YRZmNMEsAvGfTDLmjbM1ZWKs BZUbNAJtY5LfmfCnhZZcXHAtXj7+MA4za6HfYyPjQDCyAzp9WM3PeNYyWA5TqTWlmZ8dimKwY716owCy EQYbGumtl3OaWSekNEDSKS1FVLL0WKU1EEXsEb9+YW8kb3PyKqFpBWEyUgf3SV8GnCFne7DzZN8FY6Ce MMJsCUQKFOV7a0OdJJYoebeektzxR2ZnTGV7cC6nFG F8MOOaNJxzEEGwUTWlRlElHYRrUNvkSAEnWRFwNQAkIWPqRBj6nGBmFR6LB7OiCLOsHSTZXWRqobFyKi 8xPIoEUZ1gZcSUNCiMNJHaFK4LAlSyRKYkTnv8RjE8NNEoE0RzcxKebTAyDJWPUNxnShsuQZMzuH7sqO amR8QiCXR9x2IwSD5WS2LzGUXzOKTXSTU5x4WmTQSk nitlenctKyZiCOWeLYOxKLDlIY6Vxl1omBYcblQhIZVNZBpeHdhtOP3gzAaythqtP5FxyTTeCHG+PmVu EY6fqj0+SwZoXXZvYem6PUOmLSdrUPVtCTOfDAZrV9gkRUTfNdEtTCSpZuKbZY2Vi5GxkSUvFv8axiFd YmoKeHJlZgogICAgIDAgICAgMjQKMDAwMDAwMDAwMC K7EZRbYTHxLRdiBYWtBMHoAUgjHNMlAJKoXY9dAeByVHEhDLK3VYQwRNPcVLPuroMGZDJzZWI5PDxwEH IoTFWeAYOzSEmbIZEbHTHrZPTwPVM9MHW0OXWiFgAjMFYeSYXcUIFwABLoYWZqneECADKrTXVaCVO5NR OtJLHdKCZhRKbyFOXvYNAfNTzoPFKaDMEvBK6uIlHy JKNtMUVlLBgoNAZmXKYxlsQYEIFhNJBnOOFmUERbCBJfCMFoANlpYBCdFMJnPYTlNIAeHSDqRR9zLcXy RCJfWGT7JJSmDYMtRDNoyfKAZLFnWAOqMZg5KVShJEUkEDXlLWltFRWyZZPqTQY2YFVsTFAeBR2cTqBa KETyMHE3HvHzEHBtJMSrluRIMXLqCJNxAKX4DlMvIJ XyJOSyMBwyGDIwJDKcMQlkLFWyBFRvVS0wIpCcJDFlKTKqVQiwNMLfXWOqlvHMZNQuWWRdNKPrYqKgYV ShLUCnYYtmQSRyIUSsIaArSKGmUCHlEL5gCjWwGKOsXSL6KBrsJGWpJQRdyzMRWYVgXPPdMMgoPFAkOZ TmCDWwNRshMDRhYSOzAPY5DAMvBHLpYK7oVhUiRSHl VQSdCYAlGwM4ZdHyAfIDmNRwdUxvhmw8WQxwQ3p2XVSmGPnyIC9wsuInSIDcIusdZc6txJE3JZHyJskG Zl5Wr4EyioU0lvKwSgDhYmJ6AtRyQE9F ID Date Data Source [id number] 03/13/2020 10:22:00 AM EDT [facility] A NGIO CHESTCLINICAL HISTORY: Persistent atrial [...] rce(s) Supporting Document(s) ID Date Data Source [id number] 03/13/2020 07:44:40 PM EDT [facility] SPEC EXP DATE 03/21/2020PATI ENT ABO/Rh O POSITIVEANTIBODY SCREEN NEGATIVETESTING SITE PERFORMED AT [address] [place] [address] Name Value Range Interpretation Code Description Data Sera rce(s) Supporting Document(s) TYPE AND SCREEN [facility] PATIENT ABO/Rh O POSITIVE ID Date Data Source [id number] 03/13/2020 03:58:34 PM EDT [facility] Name Value Range Interpretation Code Description Data Sera rce(s) Supporting Document(s) SODIUM 140 mmol/L (136-145) [facility] POTASSIUM 4.1 mmol/L (3.6-5.2) [facility] CHLORIDE 104 mmol/L (100-108) [facility] CO2 33 mmol/L (22-31) H [facility] ANION GAP 3 mmol/L (7-16) L [facility] UREA NITROGEN 11 mg/dL (7-24) [facility] CREATININE 1.02 mg/dL (0.80-1.30) [facility] BUN/CREAT RATIO 10.8 RATIO (10.0-20.0) [facility] GLUCOSE 85 mg/dL (70-99) [facility] CALCIUM 9.5 mg/dL (8.4-10.2) [facility] GFR >60 ml/min/1.73m2 (>59) [facility] GFR ( AMER) >60 ml/min/1.73m2 (>59) [facility] GFR INTERPRETATION [facility] --NORMAL KIDNEY FUNCTION OR MILD DISEASE - GFR >OR= 60CHRONIC KIDNEY DISEASE - GFR 15 - 59RENAL FAILURE - GFR <15 Est. GFR calculation based on the MDRDstudy equation, which assumes a steadystate for creatinine. Est. GFR should notbe used for medication dosing. ID Date Data Source [id number] 03/13/2020 03:36:51 PM EDT [facility] Name Value Range Interpretation Code Description Data Sera e(s) Supporting Document(s) WBC 4.0 10*3/uL (4.1-11.0) L [facility] [place] RBC 5.10 10*6/uL (4.60-6.10) [facility] HGB 15.9 g/dL (13.5-18.0) [facility] HCT 47.3 % (41.0-53.0) [facility] MCV 92.6 fL (80.0-95.0) [facility] MCH 31.1 pg (27.0-32.0) [facility] MCHC 33.6 g/dL (32.0-36.0) [facility] RDW 13.8 % (10.5-14.5) [facility] PLT 130 10*3/uL (150-450) L [facility] MPV 10.4 fL (7.1-10.7) [facility] ID Date Data Source [id number] 03/09/2020 02:03:44 PM EDT [facility]FORMATION[facility] MRN Name Date of Age Gend*PT [id number] Gallito Hinojosa 1995 25 years M ---PT Location Admission Date/Time Visit ID Attending Provider --- --- --- --- EPI ID CSN Admitting Pro vider [id number] ---Addended by: SUBHA BLAND on: 03/09/2020 02:03 PM Modules accepted: Orders Name Value Range Interpretation Code Description Data Sera rce(s) Supporting Document(s) Procedure Social History Code Duration Value Status Description Data Source(s ) Alcohol intake 03/02/2021 12:00:00 AM EDT Ex-drinker (finding) comp leted Ex- drinker (finding) [facility] Alcohol intake 11/19/2020 12:00:00 AM EDT Ex-drinker (finding) comp leted Ex- drinker (finding) [facility] Alcohol intake 11/16/2020 12:00:00 AM EDT Ex-drinker (finding) comp leted Ex- drinker (finding) [facility] Alcohol intake 09/22/2020 12:00:00 AM EDT Not Currently completed [facility] Cigarette pack-years 09/22/2020 12:00:00 AM EDT UNK completed [facility] Cigarettes smoked current (pack per day) - Reported 09/23/19 12:00:00 AM EDT UNK completed [facility] Smoking 09/22/2020 12:00:00 AM EDT Current every day smoker co mpleted Current every day smoker [facility] Alcohol intake 06/24/2020 12:00:00 AM EST Not Currently completed [facility] Cigarette pack-years 06/24/2020 12:00:00 AM EST UNK completed [facility] Cigarettes smoked current (pack per day) - Reported 06/24/19 12:00:00 AM EST UNK completed [facility] Smoking 06/24/2020 12:00:00 AM EST Current every day smoker co mpleted Current every day smoker [facility] Vital Signs ID Date Data Source UNK Name Value Range Interpretation Code Description Data Source(s) Heart rate 111 /min 111 /min [facility] ([facility]) 108, regular Systolic blood pressure--sitting 136 mm[Hg] 136 mm[Hg] [facility] ([facility]) Ra, large cuff Diastolic blood pressure--sitting 86 mm[Hg] 86 mm[Hg] [facility] ([facility]) Ra, large cuff Body weight 179.00 [lb_av] 179.00 [lb_av] [facility] T ([facility]) in full uniform 8 lbs Body height 68 [in_i] 68 [in_i] [facility] 5'8" Body mass index (BMI) [Ratio] 27.2 kg/m2 27.2 k g/m2 [facility] ([facility]) Systolic blood pressure 120 mm[Hg] 120 mm[Hg] M EDENT ([facility] ) Diastolic blood pressure 80 mm[Hg] 80 mm[Hg] [facility] ([facility], ) Heart rate 72 /min 72 /min [facility] ([facility] ) Body height 67 [in_i] 67 [in_i] [facility] ([facility] ) 5'7" Body weight 168.00 [lb_av] 168.00 [lb_av] [facility] T ([facility]) Body mass index (BMI) [Ratio] 26.3 kg/m2 26.3 k g/m2 [facility] ([facility]) [place] body weight 148 [lb_av] 148 [lb_av] [facility] T ([facility]) Body temperature 97.7 [degF] 97.7 [degF] [facility] ([facility]) Body height 66 [in_i] 66 [in_i] [facility] ([facility]) 5'6" Body weight 169.50 [lb_av] 169.50 [lb_av] [facility] T ([facility]) Body mass index (BMI) [Ratio] 27.4 kg/m2 27.4 k g/m2 [facility] ([facility]) Systolic blood pressure 118 mm[Hg] 118 mm[Hg] [facility] Diastolic blood pressure 66 mm[Hg] 66 mm[Hg] [facility] Heart rate 101 /min 101 /min [facility] Oxygen saturation in Arterial blood by Pulse oximetry 99 % 99 % [facility] Body temperature 36.5 Delphine 36.5 Delphine [facility] Respiratory rate 18 /min 18 /min [facility] Body weight 76.794 kg 76.794 kg [facility] Body mass index (BMI) [Ratio] 26.52 kg/m2 26.52 kg/m2 [facility] Heart rate 85 /min 85 /min [facility] Body temperature 36.28 Delphine 36.28 Delphine [facility] Respiratory rate 16 /min 16 /min [facility] Body height 170.2 cm 170.2 cm [facility] Body weight 76.658 kg 76.658 kg [facility] Body mass index (BMI) [Ratio] 26.47 kg/m2 26.47 kg/m2 [facility] Oxygen saturation in Arterial blood by Pulse oximetry 100 % 100 % [facility] Systolic blood pressure 121 mm[Hg] 121 mm[Hg] [facility] Diastolic blood pressure 78 mm[Hg] 78 mm[Hg] [facility] Body weight 175.00 [lb_av] 175.00 [lb_av] [facility] T ([facility]) in full uniform 8 lbs Body height 68 [in_i] 68 [in_i] [facility] ([facility] 5'8" Body mass index (BMI) [Ratio] 26.6 kg/m2 26.6 k g/m2 [facility] ([facility]) Systolic blood pressure--sitting 124 mm[Hg] 124 mm[Hg] [facility] ([facility]) Ra, large cuff Diastolic blood pressure--sitting 72 mm[Hg] 72 mm[Hg] [facility] ([facility]) Ra, large cuff Body height 68 [in_i] 68 [in_i] [facility] ([facility] 5'8" Body mass index (BMI) [Ratio] 26.3 kg/m2 26.3 k g/m2 [facility] ([facility]) Systolic blood pressure--sitting 122 mm[Hg] 122 mm[Hg] [facility] ([facility]) Ra, large cuff Body weight 173.00 [lb_av] 173.00 [lb_av] [facility] T ([facility]) in full uniform 6 lbs Diastolic blood pressure--sitting 72 mm[Hg] 72 mm[Hg] [facility] ([facility]) Ra, large cuff Body mass index (BMI) [Ratio] 26.1 kg/m2 26.1 k g/m2 [facility] ([facility]) Heart rate 72 /min 72 /min [facility] ([facility]) regular Respiratory rate 16 /min 16 /min [facility] ( [facility]) nonlabored Body weight 172.00 [lb_av] 172.00 [lb_av] [facility] T ([facility]) in full uniform Body height 68 [in_i] 68 [in_i] [facility]) 5'8" Systolic blood pressure--sitting 118 mm[Hg] 118 mm[Hg] [facility] ([facility]) Ra, large cuff Diastolic blood pressure--sitting 78 mm[Hg] 78 mm[Hg] [facility] ([facility]) Ra, large cuff Body weight 175.00 [lb_av] 175.00 [lb_av] MED[facility] T ([facility]) Heart rate 71 /min 71 /min [facility] ([facility]) Systolic blood pressure--sitting 118 mm[Hg] 118 mm[Hg] [facility] ([facility]) large cuff, Ra Diastolic blood pressure--sitting 80 mm[Hg] 80 mm[Hg] [facility] ([facility]) large cuff, Ra Body height 68 [in_i] 68 [in_i] [facility] 5'8" Body mass index (BMI) [Ratio] 26.6 kg/m2 26.6 k g/m2 [facility] ([facility]) Patient Treatment Plan of Care Planned Activity Planned Date Details Description Data Source (s) Flecainide Acetate 50 MG Oral Tablet 03/03/2021 12:00:00 AM EDT [facility] rivaroxaban 20 MG Oral Tablet 12/23/2020 12:00:00 AM EDT [facility] normal saline flush 0.9 % injection 3 mL 11/19/2020 02:00:00 PM EDT [facility] normal saline flush 0.9 % injection 3 mL 11/19/2020 02:00:00 PM EDT [facility] normal saline flush 0.9 % injection 3 mL 11/19/2020 02:00:00 PM EDT [facility] fentaNYL Citrate (PF) (SUBLIMAZE) injection 25 mcg 11/19/2020 01 :20:51 PM EDT [facility] HYDROmorphone (DILAUDID) injection 0.5 mg 11/19/2020 01:20:51 PM ED T [facility] Albuterol 0.833 MG/ML / Ipratropium [facility] 0.167 MG/M L Inhalant Solution 11/19/2020 01:20:51 PM EDT [facility] 10 ML Atropine Sulfate 0.1 MG/ML Prefilled Syringe 11/19/2020 01 :20:50 PM EDT [facility] rivaroxaban 20 MG Oral Tablet 03/24/2020 12:00:00 AM EDT [facility]
[2021-04-22] MEDS ORDERED: MORPHINE 4 MG/ML 1ML VIAL/SYRINGE (J2270) IV ONE (13:45)
[2021-04-22] MEDS ORDERED: NS 1,000 ML IV ONE (13:45)
--- OUTSIDE RECORDS SUMMARY | 2021-04-22 13:59 | CCD ---
Author Author [facility] Organization [facility] Address Unknown Phone Unavailable Care Team Providers Care Guest Services Agent Name Role Phone Deny, L Olimpia PA [...] Unavailable Estrella, L Scooter ULLOA Unavailable Unavailable Esterlla, L Scooter ULLOA Unavailable Unavailable Estrella, L [...] L OFELIA PA Unavailable Unavailable BRANDON, L OFEILA PA Unavailable Unavailable BRANDON, L OFELIA PA [...] Gambee Joy PA-C Unavailable Unavailable Sweet, Gambee Ojy PA-C Unavailable Unavailable Sweet, Gambee Jyo PA-C Unavailable Unavailable Sweet, Gambee Joy PA-C Unavailable Unavailable Sweet, Gambee Joy PA-C Unavailable Unavailable Sweet, Gambee Joy PA-C Unavailable Unavailable Sweet, Gambee Joy PA-C Unavailable Unavailable Sweet, Gambee Joy PA-C Unavailable Unavailable Sweet, Gambee Joy PA-C Unavailable Unavailable ZABOROWSKI, J SUBHA SHOT FIREMAN Unavailable Unavailable ZABOROWSKI, J SUBHA SHOT FIREMAN Unavailable Unavailable ZABOROWSKI, J SUBHA SHOT FIREMAN Unavailable Unavailable ZABOROWSKI, J SUBHA SHOT FIREMAN Unavailable Unavailable ZABOROWSKI, J SUBHA SHOT FIREMAN Unavailable Unavailable ZABOROWSKI, J SUBHA SHOT FIREMAN Unavailable Unavailable ZABOROWSKI, J SUBHA SHOT FIREMAN Unavailable Unavailable ZABOROWSKI, J SUBHA SHOT FIREMAN Unavailable Unavailable ZABOROWSKI, J SUBHA SHOT FIREMAN Unavailable Unavailable ZABOROWSKI, J SUBHA SHOT FIREMAN Unavailable Unavailable ZABOROWSKI, J SUBHA SHOT FIREMAN Unavailable Unavailable ZABOROWSKI, J SUBHA SHOT FIREMAN Unavailable Unavailable ZABOROWSKI, J SUBHA SHOT FIREMAN Unavailable Unavailable ZABOROWSKI, J SUBHA SHOT FIREMAN Unavailable Unavailable ZABOROWSKI, J SUBHA SHOT FIREMAN Unavailable Unavailable ZABOROWSKI, J SUBHA SHOT FIREMAN Unavailable Unavailable ZABOROWSKI, J SUBHA SHOT FIREMAN Unavailable Unavailable ZABOROWSKI, J SUBHA SHOT FIREMAN Unavailable Unavailable ZABOROWSKI, J SUBHA SHOT FIREMAN Unavailable Unavailable ZABOROWSKI, J SUBHA SHOT FIREMAN Unavailable Unavailable ZABOROWSKI, J SUBHA SHOT FIREMAN Unavailable Unavailable ZABOROWSKI, J SUBHA SHOT FIREMAN Unavailable Unavailable ZABOROWSKI, J SUBHA SHOT FIREMAN Unavailable Unavailable ZABOROWSKI, J SUBHA SHOT FIREMAN Unavailable Unavailable ZABOROWSKI, J SUBHA SHOT FIREMAN Unavailable Unavailable ZABOROWSKI, J SUBHA SHOT FIREMAN Unavailable Unavailable ZABOROWSKI, J SUBHA SHOT FIREMAN Unavailable Unavailable ZABOROWSKI, J SUBHA SHOT FIREMAN Unavailable Unavailable ZABOROWSKI, J SUBHA SHOT FIREMAN Unavailable Unavailable ZABOROWSKI, J SUBHA SHOT FIREMAN Unavailable Unavailable ZABOROWSKI, J SUBHA SHOT FIREMAN Unavailable Unavailable ZABOROWSKI, J SUBHA SHOT FIREMAN Unavailable Unavailable ZABOROWSKI, J SUBHA SHOT FIREMAN Unavailable Unavailable ZABOROWSKI, J SUBHA SHOT FIREMAN Unavailable Unavailable ZABOROWSKI, J SUBHA SHOT FIREMAN Unavailable Unavailable ZABOROWSKI, J SUBHA SHOT FIREMAN Unavailable Unavailable ZABOROWSKI, J SUBHA SHOT FIREMAN Unavailable Unavailable ZABOROWSKI, J SUBHA SHOT FIREMAN Unavailable Unavailable ZABOROWSKI, J SUBHA SHOT FIREMAN Unavailable Unavailable ZABOROWSKI, J SUBHA SHOT FIREMAN Unavailable Unavailable ZABOROWSKI, J SUBHA SHOT FIREMAN Unavailable Unavailable ZABOROWSKI, J SUBHA SHOT FIREMAN Unavailable Unavailable ZABOROWSKI, J SUBHA SHOT FIREMAN Unavailable Unavailable ZABOROWSKI, J SUBHA SHOT FIREMAN Unavailable Unavailable ZABOROWSKI, J SUBHA SHOT FIREMAN Unavailable Unavailable ZABOROWSKI, J SUBHA SHOT FIREMAN Unavailable Unavailable ZABOROWSKI, J SUBHA SHOT FIREMAN Unavailable Unavailable ZABOROWSKI, J SUBHA SHOT FIREMAN Unavailable Unavailable Al Mudamgha, A Ali MD [...] A Ali MD Unavailable Unavailable Georgette, Itzel SHOT FIREMAN Unavailable Unavailable Georgetet, Itzel SHOT FIREMAN Unavailable Unavailable Georgette, Itzel SHOT FIREMAN Unavailable Unavailable Georgette, Itzel SHOT FIREMAN Unavailable Unavailable Georgette, Itzel SHOT FIREMAN Unavailable Unavailable Georgette, Itzel SHOT FIREMAN Unavailable Unavailable Georgette, Itzel SHOT FIREMAN Unavailable Unavailable Georgette, Itzel SHOT FIREMAN Unavailable Unavailable CHANLIECCO, C GIORGI MD Unavailable [...] is protected by Article 27-F of the [facility] Public Health law. If you continue you may have access to information: Regarding HIV / AIDS; Provided by facilities licensed or operated by the [facility] Office of Mental Health; or Provided by the [facility] Office for People With Developmental Disabilities. If such information is present, then the following [facility] mandated warning applies: This information has been [...] law may result in a fine or penitentiary sentence or both. A general authorization for the release of medical or other information is NOT sufficient authorization for further disc losure. Allergies and Adverse Reactions Type Description Substance Reaction Status Data Source(s ) Propensity to adverse reactions AVOCADO avocado allergen ic extract Anaphylaxis High Active [facility] High Propensity to adverse reactions ALMOND MEAL [place] Meal Anaphylax is High Active [facility] High Family History Family Member Name Family Member Gender Family Member Status Date o f Status Description Data Source(s) Unknown Male Problem [facility] ([facility]) Encounters Encounter Providers Location Date Indications Data Source(s ) Outpatient Attender: OFLEIA STEINBERG Main Office 03/25/2021 0 3:00:00 PM EDT [facility] ([facility]) Outpatient Attender: Ward Holt MD BF-BF 03/03/2021 12:00:0 0 AM EDT [facility] Emergency Attender: Rodney Bermudez MDConsultant: ELIZABETH UNKNOWN 02/23/2021 08:45:00 AM EDT - 02/23/2021 09:55:00 AM EDT [facility] ital Patient discharged. Outpatient Attender: Ward [id number][id number] 02/17/2021 07:55:5 7 AM EDT [facility] Outpatient Attender: Scooter Estrella MD Physical Therapy 01/18/2021 0 9:15:00 AM EDT [facility] Emergency Attender: Rodney Bermudez MD 01/17/2021 02:19:00 PM EDT - 01/17/2021 06:26:00 PM EDT [facility] Patient discharged. Emergency Attender: GIORGI MENJIVAR MD 01/12/2021 11:26:00 AM EDT - 01/12/2021 12:47:00 PM EDT [facility] Patient discharged. Outpatient [id number] 12/23/2020 12:00:00 AM EDT [facility] Outpatient Attender: Joy Peck PA-C [id number] 12:00:00 AM EDT - 12/10/2020 12:14:04 PM EDT [facility] Outpatient Attender: Ward Holt MD Admitter: Ward Holt MDReferrer: Itzel Palomino NP 1-SJ.CVAU 11/19/2020 10:35:00 AM EDT - 11/19/2020 04:00:00 PM EDT [facility] Patient discharged. Outpatient Attender: Ward Holt MDReferrer: Ward Cisse MD MOB-MOB.PAT 11/16/2020 08:33:23 AM EDT - 11/16/2020 09:11:20 AM EDT [facility] Outpatient Referrer: Ward Holt MD MOB-MOB.PAT 11/16/2020 1 2:00:00 AM EDT [facility] Outpatient [id number] 10/30/2020 08:14:38 AM EDT [facility] Outpatient [id number] 10/21/2020 03:27:49 PM EDT [facility] Outpatient [id number] 10/16/2020 03:52:09 PM EDT [facility] Outpatient Attender: Ward Holt MD [id number] 09/23/2020 07:57:5 3 AM EDT [facility] Outpatient [id number] 09/17/2020 03:27:44 PM EDT [facility] Outpatient [id number] 09/01/2020 01:54:08 PM EDT [facility] Outpatient Attender: OFELIA STEINBERG Main Office 08/11/2020 1 1:45:00 AM EST [facility] ([facility]) Outpatient Attender: OFELIA STEINBERG Main Office 08/03/2020 0 9:15:00 AM EST [facility] ([facility]) Outpatient Attender: Ward Holt MD BF-BF.[facility] 06/24/2020 12:00:0 0 AM EST [facility] Outpatient Attender: OFELIA STEINBERG Main Office 06/15/2020 0 8:15:00 AM EST [facility] ([facility]) Outpatient BF-BF.[facility] 04/30/2020 12:00:00 AM EST [facility] Outpatient Attender: SUBHA BLAND NP BF-BF 04/02/2020 12:00:0 0 AM EDT [facility] Outpatient Attender: Ward Holt MDAdmitter: Ward Cisse MD ES1-SJ.CVAU 03/20/2020 07:56:00 AM EDT - 03/20/2020 01:57:00 PM EDT [facility] Patient discharged. Outpatient Attender: Olimpia STEINBERG Main Office 03/16/2020 09:15:0 0 AM EDT [facility] ([facility]) Outpatient Referrer: Ward Holt MD MOB-MOB.PAT 09/2019 11:08:31 AM EDT - 03/15/2020 11:08:36 AM EDT [facility] Outpatient Referrer: Ward Holt MD 03/13/2020 09:52:0 7 AM EDT [facility] Outpatient Attender: Ward Holt MDReferrer: Ward Cisse MD MOB-MOB.PAT 03/13/2020 08:53:42 AM EDT - 03/13/2020 09:53:39 AM EDT [facility] BF-BF 03/09/2020 02:03:44 PM EDT [facility] Outpatient Referrer: Ward Holt MD 03/05/2020 08:13:2 2 AM EDT [facility] Immunizations Vaccine Date Status Description Data Source(s) 10/27/2020 12:00:00 AM EDT completed <td I D="[id number]">Covid-19 (Pfizer)</td><td>10/27/2020, 08/25/2020</td><td></td> [facility] COVID-19 VACCINE Pfizer 10/27/2020 12:00:00 AM EDT completed NYSIIS Vaccine Series Complete: YESThis Data wa s Submitted to [facility] Via [employer]. 08/25/2020 12:00:00 AM EDT completed <td I D="[id number]">Covid-19 (Pfizer)</td><td>10/27/2020, 08/25/2020</td><td></td> [facility] COVID-19 VACCINE Pfizer 08/25/2020 12:00:00 AM EDT completed CleoSIIS Vaccine Series Complete: YESThis Data wa s Submitted to [facility] Via [employer]. Medications Medication Brand Name Start Date Product Form Dose Route Admi nistrative Instructions Pharmacy Instructions Status Indications Reaction Description Data Source(s) gabapentin 300 MG Oral Capsule Gabapentin 04/14/2021 12:00:00 AM EDT ORAL active [facility] ([facility]) Mirtazapine 7.5 MG Oral Tablet Mirtazapine 04/14/2021 12:00:00 AM EDT ORAL active [facility] ([facility]) Omeprazole 20 MG Delayed Release Oral Capsule Omeprazole 03/24/2021 12:00:00 AM EDT ORAL completed [facility] ([facility]) duloxetine 30 MG Delayed Release Oral Capsule [Cymbalta] Cym bishop 03/24/2021 12:00:00 AM EDT ORAL active M [facility] ([facility]) gabapentin 600 MG Oral Tablet Gabapentin 03/24/2021 12:00:00 AM EDT ORAL completed [facility] ([facility]) Flecainide Acetate 50 MG Oral Tablet flecainide (TAMBO COR) 50 MG tablet flecainide (TAMBOCOR) 50 MG tablet 03/03/2021 12:00:00 AM EDT 50 mg Oral active Take 1 tablet (50 mg total) by m outh 2 (two) times a day [facility] 8 HR Acetaminophen 650 MG Extended Release Oral Tablet [Tyle nol] Tylenol 8 Hour 02/01/2021 12:00:00 AM EDT active [facility] ([facility]) 24 HR metoprolol succinate 200 MG Extended Release Ora l Tablet Metoprolol Succinate ER 01/21/2021 12:00:00 AM EDT ORAL completed [facility] ([facility]) rivaroxaban 20 MG Oral Tablet rivaroxaban (Xarelto) 20 MG TABS rivaroxaban (Xarelto) 20 MG TABS 12/23/2020 12:00:00 AM EDT 20 mg Oral active Take 1 tablet (20 mg total) by mouth daily [facility] normal saline flush 0.9 % injection 3 mL [id number] 11/19/2020 02:00:00 PM EDT 3 mL Intravenous active 3 mL , Intravenous, Every 8 hours (scheduled), First dose on Kendra 11/19/20 at 1400, PACU (only)
flush per protocol, D/C Main IV fluid if appropriate
[facility] Medication administered onsite normal saline flush 0.9 % injection 3 mL [id number] 11/19/2020 02:00:00 PM EDT 3 mL Intravenous active 3 mL , Intravenous, Every 8 hours (scheduled), First dose on Kendra 11/19/20 at 1400, Pre-op
Rapid push positive pressure flushing shall be performed with a 10 cc normal saline syringe to check the PATENCY of a PIV site prior to any infusion therapy initiation unless resistance is met.
[facility] Medication administered onsite normal saline flush 0.9 % injection 3 mL [id number] 11/19/2020 02:00:00 PM EDT 3 mL Intravenous active 3 mL , Intravenous, Every 8 hours (scheduled), First dose on Kendra 11/19/20 at 1400, Pre-op
Rapid push positive pressure flushing shall be performed with a 10 cc normal saline syringe to check the PATENCY of a PIV site prior to any infusion therapy initiation unless resistance is met.
[facility] Medication administered onsite 1 ML Ketorolac Tromethamine 30 MG/ML Car tridge ketorolac (TORADOL) injection 30 mg ketorolac (TORADOL) injection 30 mg 11/19/2020 01:46:43 PM EDT 30 mg Intravenous completed 30 mg, Intrav enous, Once as needed, severe pain (7-10), Starting on Kendra 11/19/20 at 1346, For 1 dose [facility] Medication administered onsite HYDROmorphone (DILAUDID) injection 0.5 mg [id number] 11/19/2020 01:20:51 PM EDT 0.5 mg Intravenous active 0.5 mg, Intravenous, Every 5 min PRN, severe pain (7-10), Starting on Kendra 11/19/20 at 1320, For 5 doses, PACU (only) [facility] Medication administered onsite ondansetron (ZOFRAN) injection 4 mg [id number] 11/19/2020 01:20:5 1 PM EDT 4 mg Intravenous completed 4 mg, In travenous, Once as needed, nausea, vomiting, Starting on Kendra 11/19/20 at 1320, For 1 dose, PACU (only)
If not given in last 4 hours
[facility] Medication administered onsite Albuterol 0.833 MG/ML / Ipratropium Brom maxine 0.167 MG/ML Inhalant Solution ipratropium-albuterol (DUO-NEB) 0.5-2.5 mg/mL nebulizer solution 3 mL ipratropium-albuterol (DUO-NEB) 0.5-2.5 mg/mL nebulizer solution 3 mL 11/19/2020 01:20:51 PM EDT 3 mL Inhalation active 3 mL, Inhalation, Once as needed, shortness of breath, Starting on Kendra 11/19/20 at 1320, For 1 dose, PACU (only) [facility] Medication administered onsite fentaNYL Citrate (PF) (SUBLIMAZE) injection 25 mcg [id number] 11/19/2020 01:20:51 PM EDT 25 ug Intravenous active 25 mcg, Intravenous, Every 5 min PRN, moderate pain (4 to 6), Starting on Kendra 11/19/20 at 1320, For 5 doses, PACU (only) [facility] Medication administered onsite 10 ML Atropine [...] or 0.04 mg/kg. Max of 6 doses
[facility] Medication administered onsite protamine injection [id number] 11/19/2020 12:33:22 PM EDT active As needed, Starting on Kendra 11/19/20 at 1233, Intra-Proc edure [facility] Medication administered onsite 1 ML heparin sodium, porcine 1000 UNT/ML Injection hep mikael (porcine) injection heparin (porcine) injection 11/19/2020 12:01:54 PM EDT active As needed, Starting on Kendra 11/19/20 at 1201, Intra-Procedure [facility] Medication administered onsite lidocaine (PF) (XYLOCAINE-MPF) 1 % injection [id number] 03/2021 11:55:13 AM EDT active As needed, Start ing on Kendra 11/19/20 at 1155, Intra-Procedure [facility] Medication administered onsite 24 HR metoprolol succinate 100 MG Extended Release Ora l Tablet Metoprolol Succinate ER 08/28/2020 12:00:00 AM EDT ORAL completed [facility] ([facility]) Omeprazole 20 MG Delayed Release Oral Capsule Omeprazole 08/03/2020 12:00:00 AM EST ORAL active [facility] ([facility] Metoprolol Tartrate 50 MG Oral Tablet Metoprolol Tartrate 12:00:00 AM EST ORAL completed [facility] ([facility]) rivaroxaban 20 MG Oral Tablet [Xarelto] Xarelto 06/14/2020 12:00:0 0 AM EST ORAL active [facility] ([facility] rivaroxaban 20 MG Oral Tablet rivaroxaban (XARELTO) 20 MG TABS rivaroxaban (XARELTO) 20 MG TABS 03/24/2020 12:00:00 AM EDT 20 mg Oral active Take 1 tablet (20 mg total) by mouth daily To start after procedure --discharge nurse to inform when to start. [facility] Insurance Providers Payer name Policy type / Coverage type Policy ID Covered democrat ID Covered democrat's relationship to lópez Policy López Plan Information [id number] xxxxxxxxx [id number] Ashley [id number] Ashley [id number] Ashley [id number] INSURANCE COVID-19 COVID Ashley C OVID INSURANCE COVID-19 [id number] [facility] ([facility] [id number] Self [id number] [facility] HUMANA - O/P [id number] 18 [id number] [facility] - PHYSICIAN [id number] 18 [id number] [facility] ACTIVE DUTY [id number] SP [id number] [facility] ([facility] [id number] Self [id number] [facility] ACTIVE DUTY [id number] SP [id number] Problems, Conditions, and Diagnoses Code Display Name Description Problem Type Effective Dates Data Source(s) Z7901 residential (current) use of anticoagulant s residential (current) use of anticoagulants Diagnosis 02/23/2021 08:45:00 AM EDT [facility] L40826 Nicotine dependence, cigarettes, uncompl icated Nicotine dependence, cigarettes, uncomplicated Diagnosis 02/23/2021 08:45:00 AM EDT [facility] R9431 Abnormal electrocardiogram [ECG] [EKG] A bnormal electrocardiogram [ECG] [EKG] Diagnosis 02/23/2021 08:45:00 AM EDT [facility] R002 Palpitations Palpitations Diagnosis 02/23[facility]21 [facility]45:[facility] Lumbago with sciatica, left side Lumbago with sc iatica, left side Diagnosis 02/23/2021 08:45:00 AM EDT [facility] M545 Low back pain Low back pain Diagnosis 02/23/2021 08:45:00 AM [facility] F27173 Unspecified place in unspeci fied non-institutional (private) residence as the place of occurrence of the external cause Unspecified place in unspecified non-institutional (private) residence as the place of occurrence of the external cause Diagnosis 01/17/2021 02:19:00 PM EDT [facility] [id number] Fall (on) (from) unspecified stairs and steps, initial encounter Fall (on) (from) unspecified stairs and steps, initial encounter Diagnosis 01/17/2021 02:19:00 PM EDT [facility] M5416 Radiculopathy, lumbar region Radiculopathy, lumbar reg ion Diagnosis 01/17/2021 02:19:00 PM EDT [facility] D63649 Personal history of nicotine dependence Personal history of nicotine dependence Diagnosis 01/12/2021 11:26:00 AM EDT [facility] G8929 Other chronic pain Other chronic pain Diagnosis 08/2020 11:26:00 AM EDT [facility] I48.91 Unspecified atrial fibrillation Unspecified atri al fibrillation Diagnosis 12/23/2020 03:35:03 PM EDT [facility] I48.0 Paroxysmal atrial fibrillation Paroxysmal atrial fibri llation Diagnosis 12/10/2020 11:07:56 AM EDT [facility] U07.1 COVID-19 COVID-19 Diagnosis 11/16/2020 12:00:00 AM ED T [facility] [id number] Lumbosacral radiculopathy Lumbosacral radiculopathy Pr oblem 02/01/2021 12:00:00 AM EDT [facility] ([facility]) [id number] Chronic low back pain Chronic low back pain Problem 02/01/2021 12:00:00 AM EDT [facility] ([facility]) I48.91 Atrial fibrillation Atrial fibrillation [id number] 09/29/2020 12:00:00 AM EDT [facility] R06.02 Dyspnea Dyspnea Problem 08/03/2020 12:00:00 AM ES T [facility] ([facility]) R55 Syncope and collapse Syncope and collapse Problem 06/15/2020 12:00:00 AM EST [facility] ([facility]) R07.2 Precordial pain Precordial pain Problem 06/15/2020 12:0 0:00 AM EST [facility] ([facility]) Surgeries/Procedures Procedure Description Date Indications Data Source(s) Implantable Loop Recorder System, Review And Report 04/15/2021 12:00:00 AM EDT [facility] ([employer] [facility]) ECG ROUTINE ECG W/LEAST 12 LDS W/I&R 03/25/2021 12:00: 00 AM EDT [facility] ([facility]) OFFICE OUTPATIENT VISIT 25 MINUTES 03/25/2021 12:00:00 AM EDT [facility] ([facility]) Implantable Loop Recorder System, Review And Report 03/12/2021 12:00:00 AM EDT [facility] ([facility]) Implantable Loop Recorder System, Review And Report 02/08/2021 12:00:00 AM EDT [facility] ([facility]) Needle electromyography, each extremity, with related paraspinal areas, when performed, done with nerve conduction, amplitude and latency/velocity study; complete, five or more muscles studied, innervated by three or more nerves or four or more spinal levels (list separately in addition to the code for primary procedure). 02/03/2021 12:00:00 AM EDT [facility] T ([facility] ) Needle electromyography, each extremity, with related paraspinal areas, when performed, done with nerve conduction, amplitude and latency/velocity study; complete, five or more muscles studied, innervated by three or more nerves or four or more spinal levels (list separately in addition to the code for primary procedure). 02/03/2021 12:00:00 AM EDT [facility] T ([facility], ) 56979 Nerve conduction studies 13 or more studies NEW 201202/03/2021 12:00:00 AM EDT [facility] ([facility] ) X-Ray Spine Lumbosacral Bending Only 2 Or 3 Views 01/18/2021 12:00:00 AM EDT [facility] ([facility] ) OFFICE OUTPATIENT NEW 45 MINUTES 01/18/2021 12:00:00 A M EDT [facility] ([facility] ) Implantable Loop Recorder System, Review And Report 01/06/2021 12:00:00 AM EDT [facility] ([facility] Implantable Loop Recorder System, Review And Report 12/03/2020 12:00:00 AM EDT [facility] ([facility]) EP STUDY <td>EP STUDY</td><td>Routine </td><td>11/19/2020 12:32 PM EDT</td><td> Atrial fibrillation, unspecified type</td><td></td> 11/19/2020 12:32:27 PM EDT Atrial fibrillation, unspecified type [facility] Atrial fibrillation, unspecified type ECG ROUTINE ECG W/LEAST 12 LDS TRCG ONLY W/O I&R <td>E CG 12- LEAD</td><td>Routine</td><td>11/16/2020 9:11 AM EDT</td><td> Atrial fibrillation, unspecified type</td><td></td> 11/16/2020 09:11:02 AM EDT Atrial fibrillation, unspecified type [facility] Atrial fibrillation, unspecified type BLOOD COUNT COMPLETE AUTOMATED <td>CBC</td><td>Routine </td><td>11/16/2020 9:10 AM EDT</td><td> Atrial fibrillation, unspecified type</td><td> </td> 11/16/2020 09:10:00 AM EDT Atrial fibrillation, unspecified type [facility] Atrial fibrillation, unspecified type BLOOD TYPING ABO <td>TYPE AND SCREEN</td><td> Routine</td><td>11/16/2020 9:10 AM EDT</td><td> Atrial fibrillation, unspecified type</td><td> </td> 11/16/2020 09:10:00 AM EDT Atrial fibrillation, unspecified type [facility] Atrial fibrillation, unspecified type BASIC METABOLIC PANEL CALCIUM TOTAL <td>BASIC METABOLI C PANEL</td><td>Routine</td><td>11/16/2020 9:10 AM EDT</td><td> Atrial fibrillation, unspecified type</td><td> </td> 11/16/2020 09:10:00 AM EDT Atrial fibrillation, unspecified type [facility] Atrial fibrillation, unspecified type Implantable Loop Recorder System, Review And Report 10/27/2020 12:00:00 AM EDT [facility] ([facility]) Implantable Loop Recorder System, Review And Report 09/24/2020 12:00:00 AM EDT [facility] ([facility]) OFFICE OUTPATIENT VISIT 15 MINUTES 08/11/2020 12:00:00 AM EST [facility] ([facility]) OFFICE OUTPATIENT VISIT 15 MINUTES 08/03/2020 12:00:00 AM EST MEDENT ([facility]) XTRNL ECG < 48 HR RECORDING 07/20/2020 12:00:00 AM EST MEDENT ([facility]) XTRNL ECG CONTINUOUS RHYTHM PHYS REVIEW&INTERPJ 2020 12:00:00 AM EST [facility] ([facility]) ECHO TTHRC R-T 2D W/WOM-MODE COMPL SPEC&COLR DOP 07/16 12:00:00 AM EST MED[facility] ([facility]) CV STRS TST XERS&/OR RX CONT ECG PHYS SI&R 07/09/2020 12:00:00 AM EST MEDENT ([facility]) ECG ROUTINE ECG W/LEAST 12 LDS W/I&R 06/15/2020 12:00: 00 AM EST MEDENT ([facility]) OFFICE OUTPATIENT VISIT 25 MINUTES 06/15/2020 12:00:00 AM EST MEDENT ([facility]) ECG ROUTINE ECG W/LEAST 12 LDS W/I&R 03/16/2020 12:00: 00 AM EDT MED[facility] ([facility]) Results ID Date Data Source [id number] 03/03/2021 12:34:28 PM EDT [facility] NT INFORMATIONPatient MRN Name Date of Age Gend*PT [id number] Gallito Hinojosa 1995 26 years M ---PT Location Admission Date/Time Visit ID Attending Provider --- --- --- --- EPI ID CSN Admitting Provider [id number] ---[facility] [id number] [facility], [address] (First Floor)[place], [place] [address]Us.: Fax: Batient: Gallito Camargo : 1995Date: 03/03/21CARDIOLOGY TELEMEDICINE VISITPatient was identified by name and date of .Verbal consent was obtained from the patient for this telemedicine visit.Patient is aware of the risks, limitations, and benefits of a telemedicinevisit.This telemedicine assessment was conducted remotely with the assistance ofPetpace communication technology. Telephone Only Codes 44999: 21-30 minutesof medical discussion: Telephone Only .Subjective:Gallito [...] benefitsFollow Up 6 monthsSignature: Ward Durán MD, [facility], [facility]ENTERCardiac Electrophysiology and Arrhythmia ServiceDate: March 03, 2021Time: 12:29 PMThis document or parts of this document, were dictated using Veohware. A reasonable attempt at proofreading has been made to minimize errors.Please call with any questions or corrections. Name Value Range Interpretation Code Description Data Sera rce(s) Supporting Document(s) ID Date Data Source [id number] 02/23/2021 08:07:00 [place] [address] RESPIRATORY CARE REPORT ==== ---------NAME------- NUMBER SEX AGE ADMIT DISC. XRAY# F/C TYPEMARY GALLITO Orta [id number] M 26 02/23/21 02/23/21 [id number] SB4 E/R DATE OF : 1995 M/R# [id number] #: [id number] VT-04 LOCATION: EMERGENCY DEPT EKG [id number] COMP LETE:02/23/21 15:13 [place] [address] PHYSICIAN: ANDREE Gallagher Name Value Range Interpretation Code Description Data Sera rce(s) Supporting Document(s) ID Date Data Source [id number] 02/23/2021 08:45:00 AM EDT [facility] 1 OrderSheet [facility] Emergency Department [address] [place] [address] Phone #: ext- [phone] 02/23/2021 08:44 Patient: GALLITO HERNANDEZ Sex: M : 1995 Age: 26yWEIGHT:73.4 kg (S) HEIGHT:67 inches (S) BMI:25.4ALLERGIES: Worthington (Diagnostic), Avocado (Diagnostic)CHIEF COMPLAINT: back pain, chronic [...] rce(s) Supporting Document(s) ID Date Data Source [id number] 02/23/2021 08:45:00 AM EDT [facility] 1 Medication Reconciliation Report [facility] Emergency Department [address] [place] [address] Phone #: ext- [phone] 02/23/2021 08:44 Patient: GALLITO HERNANDEZ Sex: M : 1995 Age: 26yWeight: 73.4 kgHeight/Length: 67 in.BMI: 25.4ALLERGIES: Worthington (Diagnostic), Avocado (Diagnostic)The patient's Home Medications are [...] rce(s) Supporting Document(s) ID Date Data Source [id number] 02/23/2021 08:45:00 AM EDT [facility] 1 Medication Administration Record [facility] Emergency Department [address] [place] [address] Phone #: ext [phone] 02/23/2021 08:44 Patient: GALLITO HERNANDEZ Sex: M : 1995 Age: 26yWeight: 73.4 kgHeight/Length: 67 inBMI: 25.4ALLERGIES: Worthington (Diagnostic), Avocado (Diagnostic) Date/Time Medication Administered Medication OrderedGiven LIDODERM PATCH (LIDOCAINE) Lidoderm Patch Topical (Patch 509:42 02/23/2021 Dose: 1 patch Ointment Transdermal %) 1 Patch (NOW x1, On for 12Terry LILI Sampson hours, off for 12 hours.)Given MOTRIN [PO] (IBUPROFEN) Motrin 600 mg PO X1 dose: 60835:42 02/23/2021 Dose: 600 mg Tablets PO mg (NOW x1)Hema Sampson RN Name Value Range Interpretation Code Description Data Sera rce(s) Supporting Document(s) ID Date Data Source [id number] 02/23/2021 08:45:00 AM EDT [facility] 1 General Instructions [facility] Emergency Department [address] [place] [address] Phone #: ext- [phone] 02/23/2021 08:44 Patient: [...] verbalized by patient.Follow- up with: [facility], , , [address] [place] [address], , [place], [address] Follow up in three days if not well. Call for an appointment. Reason for referral: evaluation. ADDITIONAL INFORMATIONSciatica 2 General Instructions [facility] Emergency Department [address] [place] [address] Phone #: ext- [phone] 02/23/2021 08:44 Patient: [...] for yourself at home: 3 General Instructions [facility] Emergency Department [address] [place] [address] Phone #: ext- [phone] 02/23/2021 08:44 Patient: GALLITO HERNANDEZ [facility] Man[facility]#: [id number] Sex: M : 1995 Age: 26y As [...] swelling over your back or spine [employer]. [address] [place] [address], [place] [address]. All rights reserved. This information is not intended as asubstitute for professional medical care. Always follow your healthcare professional's instructions. 4 General Instructions [facility] Emergency Department [address] [place] [address] Phone #: ext- [phone] 02/23/2021 08:44 Patient: [...] muscle (cardiomyopathy) Coronary artery disease High blood zcljeewuLav-aiusi-pectarx causes: Certain medicines such as asthma inhalers and decongestants Some herbal supplements, energy drinks and pills, and weight loss pills 5 General Instructions [facility] Emergency Department [address] [place] [address] Phone #: ext- [phone] 02/23/2021 08:44 Patient: [...] Tell your doctor about any prescription or rgqa-wiw-cgbizfb or herbal medicines you take.Follow-up care Follow [...] to seek medical advice 6 General Instructions [facility] Emergency Department [address] [place] [address] Phone #: ext- [phone] 02/23/2021 08:44 Patient: GALLITO HERNANDEZ Sex: M : 1995 Age: 26yCall your healthcare provider right away if you have palpitations that last longer than normal, or aredifferent from your past palpitations. [phone] [employer]. [address] [place] [address], [place] [address]. All rights reserved. This information is not intended as asubstitute for professional medical care. Always follow your healthcare professional's instructions. You have been given the following additional information: Sciatica Palpitations(Electronically signed by Rodney Bermudez 02/23/2021 11:16) Name Value Range Interpretation Code Description Data Sera rce(s) Supporting Document(s) ID Date Data Source [id number] 02/23/2021 08:45:00 AM EDT [facility] 1 Clinical Report - Nurses [facility] Emergency Department [address] [place] [address] Phone #: ext- [phone] 02/23/2021 08:44 Patient: [...] tingling, trouble walking orfever. No extremity pain.Treatment BRAND AMBASSADOR PROMOTIONAL MODEL:None.SEPSIS SCREEN: SIRS SCREEN NEGATIVE. SEPSIS SCREEN NEGATIVE. [...] Sampson RN.AllergiesAlmond (Diagnostic).Avocado (Diagnostic). --09:02/23/21 Hema Sampson RN.Tlfnmgi98:02/23/21.PAST MEDICAL HX: Heart disease.SOCIAL HX: Smoker- current status unknown (1/2 ppd). No alcohol use or drug use. He was offeredHIV testing but declined and hepatitis C testing but declined. He has not traveled outside the [place]Infectious disease exposure: No infectious disease exposure. 2 Clinical Report - Nurses [facility] Emergency Department [address] [place] [address] Phone #: ext- [phone] 02/23/2021 08:44 Patient: [...] patient. To room. --09:02/23/21 Hema Sampson RN.PHYSICAL JFNSKYZOGA00:02/23/21. Ambulatory to room.GENERAL / NEURO / PSYCH: [...] Sampson RN 3 Clinical Report - Nurses [facility] Emergency Department [address] [place] [address] Phone #: ext- [phone] 02/23/2021 08:44 Patient: [...] F. Pain level now 02/19. --09:45 02/23/21 [facility] 02[facility]21. Departure time: 09:55 02/23/2021. Condition at departure: unchanged. No learning barriers present. Discharge instructions provided and reviewed with the patient. Reviewed medication(s) (no changes). Reviewed rest and ice instructions. Reviewed referrals. Provided to follow-up provider. Patient verbalized understanding. Written instructions provided in Lithuanian. The patient was discharged by the physician. He was discharged home. He left ambulatory and via private vehicle. Patient driving. --:02/23/21 Hema Sampson RN.Locked/Released at 02/23/2021 12:00 by Hema Sampson RN Name Value Range Interpretation Code Description Data Sera rce(s) Supporting Document(s) ID Date Data Source [id number] 02/23/2021 08:45:00 AM EDT [facility] 1 Clinical Report - Physicians/Mid Levels [facility] Emergency Department [address] [place] [address] Phone #: ext- [phone] 02/23/2021 08:44 Patient: GALLITO HERNANDEZ [facility]#: [id number] Sex: M : 1995 Age: 26y Time [...] Xarelto Oral (Tablet 20 mg), daily. Allergies: Worthington (Diagnostic). 2 Clinical Report - Physicians/Mid Levels [facility] Emergency Department [address] [place] [address] Phone #: ext- [phone] 02/23/2021 08:44 Patient: GALLITO HERNANDEZ Sex: M [...] stable. 3 Clinical Report - Physicians/Mid Levels [facility] Emergency Department [address] [place] [address] Phone #: ext- [phone] 02/23/2021 08:44 Patient: GALLITO HERNANDEZ Sex: M [...] verbalized by patient. Follow-up with: [facility], , , [address] [place] [address], [address] Follow up in three days if not well. Call for an appointment. Reason for referral: evaluation.(Electronically signed by Rodney Bermudez 02/23/2021 11:16) Name Value Range Interpretation Code Description Data Sera rce(s) Supporting Document(s) ID Date Data Source [id number] 02/12/2021 12:00:00 AM EDT [facility] Name Value Range Interpretation Code Description Data Sera rce(s) Supporting Document(s) PCR NEGATIVE [facility] This lab was ordered by [facility] are and reported by [facility]. ID Date Data Source [id number] 01/17/2021 06:32:00 PM EDT [facility] [address] [place] [address] PHONE: [phone] FAX: [phone] Name .................. : MARY Orta Acct Number.................. : [id number] ROOM. ................. : VT-19 MR Number ................... : [id number] Stay type ............. : E/R Discharge Date......... ... : Admit Date ......... : 01/17/21 Admit Phys .................... : ANDREE Gallagher Date of ....... : 1995 Family Phys ................... : UNKNOWN CO Phone .................. : [phone] Age ................................ : 26 Film# .................. .:[id number] Sex ................................. : M Unsigned transcriptions are preliminary reports and do not represent a medical or legal document CT LUMBAR SP W/O CONT [id number] COMPLETE:01/17/21 16:54 95450 Reason(s): fell down stairs, acute on chronic [...] 01/17/21 18:32, JWS Page 1 of [address] [place] [address] PHONE: [phone] FAX: [phone] Name .................. : MARYBRIDGER ZENDEJAS You Acct Number.................. : [id number] ROOM. ................. : VT-19 MR Number ................... : [id number] Stay type ............. : E/R Discharge Date......... ... : Admit Date ......... : 01/17/21 Admit Phys .................... : ANDREE Gallagher Date of ....... : 1995 Family Phys ............ ....... : UNKNOWN CO Phone .................. : [phone] Age ................................ : 26 Film# .................. .:[id number] Sex ................................. : M Unsigned transcriptions are preliminary reports and do not represent a medical or legal document CT LUMBAR SP W/O CONT [id number] COMPLETE:01/17/21 16:54 91713 Reason(s): fell down stairs, acute on chronic LBP Transcribe Initials: TAWANNA , Transcribe Date: 01/17/21 17:50, Dictation Date: Copy for: BURKE Crandall via fax Copy for: EMERGENCY DEPT via modem Copy for: 710 MED REC DISCHARGED Page 2 of 2 Name Value Range Interpretation Code Description Data Sera rce(s) Supporting Document(s) ID Date Data Source [id number] 01/17/2021 02:19:00 PM EDT [facility] 1 OrderSheet [facility] Emergency Department [address] [place] [address] Phone #: ext- [phone] 01/17/2021 13:55 Patient: GALLITO HERNANDEZ Sex: M : 1995 Age: 26yWEIGHT:73.4 kg (S) HEIGHT:67 inches (S) BMI:25.4ALLERGIES: Worthington (Diagnostic), Avocado (Diagnostic)CHIEF COMPLAINT: fall, -3-, down [...] rce(s) Supporting Document(s) ID Date Data Source [id number] 01/17/2021 02:19:00 PM EDT [facility] 1 Medication Reconciliation Report [facility] Emergency Department [address] [place] [address] Phone #: ext- [phone] 01/17/2021 13:55 Patient: GALLITO HERNANDEZ Sex: M : 1995 Age: 26yWeight: 73.4 kgHeight/Length: 67 in.BMI: 25.4ALLERGIES: Worthing[place] (Diagnostic), Avocado (Diagnostic)The patient's Home Medications are [...] Dispense6 tablet. Refills: 0. Substitution permitted.Pharmacy - [facility] [address] ; [place] [address]. . -- MARYAN Velasco Name Value Range Interpretation Code Description Data Sera rce(s) Supporting Document(s) ID Date Data Source [id number] 01/17/2021 02:19:00 PM EDT [facility] 1 Medication Administration Record [facility] Emergency Department [address] [place] [address] Phone #: ext- [phone] 01/17/2021 13:55 Patient: GALLITO HERNANDEZ Sex: M : 1995 Age: 26yWeight: 73.4 kgHeight/Length: 67 inBMI: 25.4ALLERGIES: Worthington (Diagnostic), Avocado (Diagnostic) Date/Time Medication Administered Medication OrderedGiven MORPHINE [IM] Morphine IM 4 mg (NOW x1, HIGH17:04 01/17/2021 Dose: 4 mg IM ALERT MEDICATION)Hema Sampson RNGiven ZOFRAN ODT [PO] (ONDANSETRON Zofran ODT PO 4 mg (NOW x1)17:05 01/17/2021 HCL)Hema Sampson RN Dose: 4 mg Oral Disintegrating Tablets PO Name Value Range Interpretation Code Description Data Sera rce(s) Supporting Document(s) ID Date Data Source [id number] 01/17/2021 02:19:00 PM EDT [facility] 1 General Instructions [facility] Emergency Department [address] [place] [address] Phone #: ext- [phone] 01/17/2021 13:55 Patient: GALLITO HERNANDEZ Sex: M [...] Dispense6 tablet. Refills: 0. Substitution permitted.Pharmacy - [facility] [address] ; [place] [address]. .Understanding of the discharge instructions verbalize d by patient. Expected course of injury, dischargeinstructions, activity level, prescriptions x1, follow-up appointment and risks and benefits of treatmentreviewed with patient and understanding verbalized. Agrees to plan of care.Follow-up with: [facility], , , [address] [place] [address], , [place], [address] Follow up in one day even if well. Call for the next available appointment. Reason for referral: evaluationand recommend MRI LS spine and referral to ortho spine . Summary of care provided to patient via paper. ADDITIONAL INFORMATION 2 General Instructions [facility] Emergency Department [address] [place] [address] Phone #: ext- [phone] 01/17/2021 13:55 Patient: GALLITO HERNANDEZ Sex: M [...] howsevere your symptoms are. 3 General Instructions [facility] Emergency Department [address] [place] [address] Phone #: ext- [phone] 01/17/2021 13:55 --- [...] your back or spine 4 General Instructions [facility] Emergency Department [address] [place] [address] Phone #: ext- [phone] 01/17/2021 13:55 Patient: GALLITO HERNANDEZ Sex: M : 1995 Age: 26y [id number] [employer]. [address] [place], [place] [address]. All rights reserved. This information is not [...] provider before using these 5 General Instructions [facility] Emergency Department [address] [place] [address] Phone #: ext- [phone] 01/17/2021 13:55 Patient: [...] the reading, especially if it affects treatment.Call [phone] if any of these happen: 6 General Instructions [facility] Emergency Department [address] [place] [address] Phone #: ext- [phone] 01/17/2021 13:55 Patient: [...] in vomit, stools (black or red color) 1774-3013 [employer]. [address] [place] [address], [place] [address]. All rights reserved. This information is not [...] in poorly lit areas. 7 General Instructions [facility] Emergency Department [address] [place] [address] Phone #: ext- [phone] 01/17/2021 13:55 Patient: [...] sidewalks. If your balance is poor, con brass reclaimer using a cane or walker. If your [...] could make you more likely to fall. 6889-9476 [employer]. [address] [place] [address], [place] [address]. All rights reserved. This information is not intended as asubstitute for professional medical care. Always follow your healthcare professional's instructions. You have been given the following additional information: Sciatica Mechanical Fall Fall Prevention 8 General Instructions [facility] Emergency Department [address] [place] [address] Phone #: ext- [phone] 01/17/2021 13:55 Patient: GALLITO HERNANDEZ Sex: M : 1995 Age: 26yNo strenuous activity until better.(Electronically signed by MARYAN Velasco 01/17/2021 18:46) Name Value Range Interpretation Code Description Data Sera rce(s) Supporting Document(s) ID Date Data Source [id number] 01/17/2021 02:19:00 PM EDT [facility] 1 Clinical Report - Nurses [facility] Emergency Department [address] [place] [address] Phone #: ext- [phone] 01/17/2021 13:55 Patient: [...] bladder.). The patient has had trouble walking.Treatment BRAND AMBASSADOR PROMOTIONAL MODEL:Seen within the last 30 days in the [...] Joaquin R.N.AllergiesAvocado (Diagnostic). --14:13 01/17/21 [place] Joaquin R.N.Worthington (Diagnostic). --14:14 01/17/21 [place] Joaquin R.N.PROBLEMS:Depression. --14:15 01/17/21 [place] Joaquin R.N.Back Pain.Atrial Fibrillation. --16:48 01/17/21 MARYAN Velasco 2 Clinical Report - Nurses [facility] Emergency Department [address] [place] [address] Phone #: ext- [phone] 01/17/2021 13:55 Patient: [...] in pain. 3 Clinical Report - Nurses [facility] Emergency Department [address] [place] [address] Phone #: ext- [phone] 01/17/2021 13:55 Patient: [...] RR: 16. O2 saturation: 99%. --17:11 01/17/21 [place] [facility] registration specialist, Cecilia, ER Tech1 Patient transported to CT by wheelchair with mask and pathology tech. (1720). --17:31 01/17/21 Hema Sampson RN Patient returned from CT by wheelchair with mask and pathology tech. (1731). --17:33 01/17/21 Hema Sampson RN 18:16 01/17/21. BP: 114/83. HR: 84. RR: 16. O2 saturation: 100%. --18:16 01/17/21 [place] [facility] registration specialist, Cecilia, Tech1.DISPOSITION / DISCHARGE 17:49 01/17/21. Departure time: 17:49 01/17/2021. Transferred. Provided to EMS ([facility] Transported via ambulance by informatics application analyst. Report was given to a nurse via [...] now 10/19. 4 Clinical Report - Nurses [facility] Emergency Department [address] [place] [address] Phone #: ext- [phone] 01/17/2021 13:55 Patient: GALLITO HERNANDEZ Sex: M : 1995 Age: 26y --18:18 01/17/21 [facility] [place] [address] Departure time: 18:24 01/17/2021. --18:24 01/17/21 Balbina Ramirez RN Condition at departure: stable. No learning barriers present. Discharge instructions provided and reviewed with the patient. Reviewed medication(s) side effects, precautions, dosing and course information. Prescription(s) sent electronically to pharmacy. Reviewed referral to a primary care physician. Patient verbalized understanding. Written instructions provided in Lithuanian. The patient was discharged by the physician assistant professor of religion. He was discharged home and accompanied by spouse. He left ambulatory and via private vehicle. Spouse driving. --18:26 01/17/21 Balbina Ramirez RN.Locked/Released at 01/17/2021 18:26 by Balbina Ramirez RN Name Value Range Interpretation Code Description Data Sera rce(s) Supporting Document(s) ID Date Data Source [id number] 01/17/2021 02:19:00 PM EDT [facility] 1 Clinical Report - Physicians/Mid Levels [facility] Emergency Department [address] [place] [address] Phone #: ext- [phone] 01/17/2021 13:55 Patient: GALLITO HERNANDEZ Sex: M [...] Loop recorder. Medications: 2 Clinical Report - Physicians/[facility] Emergency Department [address] [place] [address] Phone #: ext- [phone] 01/17/2021 13:55 Patient: GALLITO HERNANDEZ Sex: M : 1995 Age: 26y Metoprolol Succinate ER Oral (Tablet Extended Release 24 Hour 100 mg), daily. Xarelto Oral (Tablet 20 mg), daily. Allergies: Worthington (Diagnostic). Avocado (Diagnostic).SOCIAL HISTORYSmoker- current status unknown. [...] is 3 Clinical Report - Physicians/Mid Levels [facility] Emergency Department [address] [place] [address] Phone #: pjp- [phone] 01/17/2021 13:55 Patient: GALLITO HERNANDEZ Sex: M [...] tablet. Refills: 0. Substitution permitted. Pharmacy - [facility] [address] ; [place] [address]. . Understanding of the discharge instructions verbalized by patient. Expected course of injury, discharge instructions, activity level, prescriptions x1, follow-up appointment and risks and benefits of treatment reviewed with patient and understanding verbalized. Agrees to plan of care. Follow-up with: [facility], , , [address] [place] [address], , [place], [address] Follow up in one day even if well. Call for the next available appointment. Reason for referral: evaluation and recommend MRI LS spine and referral to ortho spine . Summary of care provided to patient via paper. 4 Clinical Report - Physicians/Mid Levels [facility] Emergency Department [address] [place] [address] Phone #: ext- [phone] 01/17/2021 13:55 Patient: GALLITO HERNANDEZ Sex: M : 1995 Age: 26y(Electronically signed by MARYAN Velasco 01/17/2021 18:46) Name Value Range Interpretation Code Description Data Sera rce(s) Supporting Document(s) ID Date Data Source [id number] 01/12/2021 11:26:00 AM EDT [facility] 1 OrderSheet [facility] Emergency Department [address] [place] [address] Phone #: [phone] 01/12/2021 11:19 Patient: GALLITO MONTGOMERY Sex: M [...] rce(s) Supporting Document(s) ID Date Data Source [id number] 01/12/2021 11:26:00 AM EDT [facility] 1 Medication Reconciliation Report [facility] Emergency Department [address] [place] [address] Phone #: ext- [phone] 01/12/2021 11:19 Patient: [...] Dispense 30 tablet. Refills:0. Substitution permitted.Pharmacy - [facility] [employer] [address] [facility] ; [place] [address]. .prednisone 10 mg tablet Take 4 tablet once a day for 10 days -- x 2 days then 3 tabs daily x 2 daysthen 2 tabs daily x 2 days then 1 tab daily x 2 days. Dispense 30 tablet. Refills: 0. Substitution permitted.Pharmacy - [facility] [facility] [employer] [address] [facility] ; [place] [address]. . 2 Medication Reconciliation Report [facility] Emergency Department [address] [place] [address] Phone #: ext- [phone] 01/12/2021 11:19 Patient: GALLITO MONTGOMERY Sex: M : 1995 Age: 26yPercocet 5 mg-325 mg tablet Take 1 tablet four times a day for 3 days -- as needed for pain. Xiwoymov32 tablet. Refills: 0. Substitution permitted.Pharmacy - [facility] [address] ; [place] [address]. . -- Giorgi Menjivar Name Value Range Interpretation Code Description Data Sera rce(s) Supporting Document(s) ID Date Data Source [id number] 01/12/2021 11:26:00 AM EDT [place] [address] Medication Administration Record [facility] Emergency Department [address] [place] [address] Phone #: ext- [phone] 01/12/2021 11:19 Patient: GALLITO MONTGOMERY Sex: M [...] rce(s) Supporting Document(s) ID Date Data Source [id number] 01/12/2021 11:26:00 AM EDT [facility] 1 General Instructions [facility] Emergency Department [address] [place] [address] Phone #: ext- [phone] 01/12/2021 11:19 Patient: [...] Dispense 30 tablet. Refills:0. Substitution permitted.Pharmacy - [facility] [employer] - [address] [facility] ; [place] [address]. .prednisone 10 mg tablet Take 4 tablet once a day for 10 days -- x 2 days then 3 tabs daily x 2 daysthen 2 tabs daily x 2 days then 1 tab daily x 2 days. Dispense 30 tablet. Refills: 0. Substitution permitted.Pharmacy - [facility] [employer] - [address] [facility] ; [place] [id number]. .Percocet 5 mg-325 mg tablet Take 1 tablet four times a day for 3 days -- as needed for pain. Sabvjile68 tablet. Refills: 0. Substitution permitted.Pharmacy - [facility] [address] ; [place] [address]. .Follow-up: Follow up with your healthcare provider in three days if not better. Reason for referral: evaluation.Summary of care provided to patient via paper. Screening today revealed the patient's blood pressure indra in the hypertensive stage 2 range. The patient should follow up with a primary care provider for bloodpressure management. ADDITIONAL INFORMATION 2 General Instructions [facility] Emergency Department [address] [place] [address] Phone #: ext- [phone] 01/12/2021 11:19 Patient: ULISES GALLITO Orta Violeta RN: [id number] [facility] Manort#: [id number] Sex: M : 1995 Age: 26ySciaticaSciatica is [...] howsevere your symptoms are. 3 General Instructions [facility] Emergency Department [address] [place] [address] Phone #: ext- [phone] 01/12/2021 11:19 Patient: [...] your back or spine 4 General Instructions [facility] Emergency Department [address] [place] [address] Phone #: ext- [phone] 01/12/2021 11:19 Patient: GALLITO MONTGOMERY Sex: M : 1995 Age: 26y [id number] [employer]. [address] [place] [address]. All rights reserved. This information is not intended as asubstitute for professional medical care. Always follow your healthcare professional's instructions. You have been given the following additional information: Sciatica Do not work for one day.(Electronically signed by Giorgi Menjivar 01/13/2021 03:27) Name Value Range Interpretation Code Description Data Sera rce(s) Supporting Document(s) ID Date Data Source [id number] 01/12/2021 11:26:00 AM EDT [facility] 1 Clinical Report - Nurses [facility] Emergency Department [address] [place] [address] Phone #: ext- [phone] 01/12/2021 11:19 Patient: [...] reports he was seen on post and iningram. pt had an mri done and it showed bulging discs. pt reports he has a hx of a-fib so he was notgiven medications for pain.).Triage time: 11:25 01/12/2021. Acuity: LEVEL 3.This started yesterday. Onset. (sitting at rest).Treatment [employer]DEL:(pt states "i hate pills, so i didn't [...] Gil R.N. 2 Clinical Report - Nurses [facility] Emergency Department [address] [place] [address] Phone #: ext- [phone] 01/12/2021 11:19 Patient: [...] sinceincident 4 weeks ago when seen in [facility] ED and MRI done per patient. pt [...] verified and 3 Clinical Report - Nurses [facility] Emergency Department [address] [place] [address] Phone #: ext- [phone] 01/12/2021 11:19 Patient: [...] Patient transported to radiology by wheelchair with pathology tech. --12:09 01/12/21 Shanda Gonsales R.N.DISPOSITION / DISCHARGE Condition at departure: improved and stable. No learning barriers present. Discharge instructions provided and reviewed with the patient. Reviewed medication(s) side effects, precautions, dosing and course information. Prescription(s) sent electronically to pharmacy. Work note given. Patient verbalized understanding. Written instructions provided in Lithuanian. The patient was discharged by the physician. [...] rce(s) Supporting Document(s) ID Date Data Source [id number] 01/12/2021 11:26:00 AM EDT [facility] 1 Clinical Report - Physicians/Mid Levels [facility] Emergency Department [address] [place] [address] Phone #: ext- [phone] 01/12/2021 11:19 Patient: [...] bowel 1 moth ago was seen at [facility] and had an MRI which showed [...] Medications: Xarelto Oral. Alieve about 199901/11/2021. Allergies: Worthington. Avacado. 2 Clinical Report - Physicians/Mid Levels [facility] Emergency Department [address] [place] [address] Phone #: ext- [phone] 01/12/2021 11:19 Patient: GALLITO MONTGOMERY [facility] Man[facility]#: [id number] Sex: M : 1995 Age: 26ySOCIAL HISTORYFormer [...] has 3 Clinical Report - Physicians/Mid Levels [facility] Emergency Department [address] [place] [address] Phone #: ext- [phone] 01/12/2021 11:19 Patient: GALLITO MONTGOMERY [facility] Man[facility]#: [id number] Sex: M : 1995 Age: 26y a [...] tablet. Refills: 0. Substitution permitted. Pharmacy - [facility] [employer] [address] [facility] ; [place] [address]. . prednisone 10 mg tablet Take 4 tablet once a day for 10 days -- x 2 days then 3 tabs daily x 2 days then 2 tabs daily x 2 days then 1 tab daily x 2 days. Dispense 30 tablet. Refills: 0. Substitution permitted. Pharmacy - [facility] [employer] - [address] [facility] ; [place] [address]. . Percocet 5 mg-325 mg tablet Take 1 tablet four times a day for 3 days -- as needed for pain. Dispense 12 tablet. Refills: 0. Substitution permitted. Pharmacy - [facility] [address] ; [place] [id number]. Phone: . 4 Clinical Report - Physicians/Mid Levels [facility] Emergency Department [address] [place] [address] Phone #: ext- [phone] 01/12/2021 11:19 Patient: GALLITO MONTGOMERY Sex: M [...] rce(s) Supporting Document(s) ID Date Data Source [id number] 01/12/2021 02:58:00 [place] [address] PHONE: [phone] FAX: [phone] Name .................. : ULISES ZENDEJAS Acct Number.................. : [id number] ROOM. ................. : [place]- MR Number ................... : [id number] Stay type ............. : E/R Discharge Date......... ... : Admit Date ......... : 08/30 Admit Phys .................... : RETACO Date of ....... : 1995 Family Phys ................... : UNKNOWN CO Phone .................. : [phone] Age ................................ : 26 Film# .................. .:[id number] Sex ................................. : M Unsigned transcriptions are preliminary reports and do not represent a medical or legal document SPINE LS COMPLETE 40210 COMPLETE:01/12/21 11:40 43137 Reason(s): Lower Back Pain LUMBOSACRAL SPINE 5 [...] rce(s) Supporting Document(s) ID Date Data Source [id number] 12/10/2020 12:16:59 PM EDT [facility] NT INFORMATIONPatient MRN Name Date of Age Gend*PT [id number] Gallito Hinojosa 1995 25 years M ---PT Location Admission Date/Time Visit ID Attending Provider --- --- --- --- EPI ID CSN Admitting Pro vider [id number] ---Cardiology Office VisitSubjectiveChief Complaint: Status post atrial [...] of having procedure completed he went [facility] twice due tonausea, vomiting, and diarrhea. He [...] Social Gatherings with Friends and Family: Attends [employer]: Active Member of Clubs or Organizations: Attends Club or Organization Meetings: Marital Status:Intimate Partner Violence: Fear of Current or Ex-Partner: Emotionally Abused: Physically Abused: Sexually Abused:Medications and AllergiesAllergiesAllergen Reactions Worthington Meal Anaphylaxis Avocado AnaphylaxisCurrent Outpatient MedicationsMedication Sig [...] NEGATIVE Final Testing site 11/16/2020 PERFORMED AT [address] [place] [address] Blood bank comment 11/16/2020 SEE NOTES Final [...] sinus rhythm. [facility] Patient will call the office if [...] rce(s) Supporting Document(s) ID Date Data Source [id number] 11/30/2020 11:12:00 AM EDT [facility] ([facility]) Name Value Range Interpretation Code Description Data Sera rce(s) Supporting Document(s) Albumin [Mass/volume] in Serum or Plasma 4.0 [facility] ([facility]) Alanine aminotransferase [Enzymatic activity/volume] in Serum or Pl asma 32 [facility] ([facility]) Calcium [Mass/volume] in Serum or Plasma 9.5 [facility] ([facility]) Alkaline phosphatase [Enzymatic activity/volume] in Serum or Plasma 7 4 [facility] ([facility]) Carbon dioxide, total [Moles/volume] in Serum or Plasma 30 [facility] ([facility]) Chloride [Moles/volume] in Serum or Plasma 104 [facility] ([facility]) Potassium [Moles/volume] in Serum or Plasma 4.1 [facility] ([facility]) Protein [Mass/volume] in Serum or Plasma 7.6 [facility] ([facility]) Sodium 137 [facility] ([facility]) Aspartate aminotransferase [Enzymatic activity/volume] in Serum or Plasma 19 [facility] ([facility]) Urea nitrogen [Mass/volume] in Serum or Plasma 11 [facility] ([facility]) Creatinine For GFR 1.06 [facility] ([facility]) Glucose 77 70-100 [facility] ID Date Data Source [id number] 11/30/2020 11:12:00 AM EDT [facility] ([facility]) Name Value Range Interpretation Code Description Data Sera rce(s) Supporting Document(s) Red Blood Count 5.28 4.70-6.20 [facility] ([facility]) White Blood Count 5.3 4.3-10.9 [facility] ([facility]) Platelets 153 130-400 [facility] ([facility]) Hemoglobin 16.0 13.0-17.0 [facility] ([facility]) Hematocrit 47.7 39.0-50.0 [facility] ([facility]) ID Date Data Source [id number] 11/21/2020 11:09:00 AM EDT [facility] ([facility]) Name Value Range Interpretation Code Description Data Sera rce(s) Supporting Document(s) Magnesium Level 2.1 [facility] ([facility]) Troponin 1.48 [facility]) ID Date Data Source [id number] 11/21/2020 11:09:00 AM EDT [facility] ([facility]) Name Value Range Interpretation Code Description Data Sera rce(s) Supporting Document(s) Sodium 140 [facility] Calcium [Mass/volume] in Serum or Plasma 9.1 [facility] ([facility]) Carbon dioxide, total [Moles/volume] in Serum or Plasma 26 [facility] ([facility]) Chloride [Moles/volume] in Serum or Plasma 107 [facility] ([facility]) Glucose 76 70-100 [facility]) Potassium [Moles/volume] in Serum or Plasma 4.1 [facility] ([facility]) Blood Urea Nitrogen 12 5-21 [facility] (Ca [facility]) Glomerular filtration rate/1.73 sq M.pre dicted [Volume Rate/Area] in Serum or Plasma by Creatinine-based formula (MDRD) Laboratory test result [facility] Creatinine 0.93 0.6-1.5 [facility]) ID Date Data Source [id number] 11/20/2020 07:17:20 AM EDT [facility] Name Value Range Interpretation Code Description Data Sera rce(s) Supporting Document(s) &PDF [facility] ZRITDq3iJzDUJgFa96/NZRmpRMBiq4WcKYdoQRt6PVwjFRVqE6JofZsaQEpRPT8sYuXPEQgSHFBkOBCZ yZW [file] AgICAgICAgICAgICAgICAgICAgICAgICAgICAgICAgICAgICAgICAgICAgICAgICAgDQogICAgICAgIC AgICAgICAgICAgICAgICAgICAgICAgICAgICAgICAg ICAgICAgICAgICAgICAgICAgICAgICAgICAgICAgICAgICAgICAgICAgICAgICAgICAgICAgICAgICAg DQogICAgICAgICAgICAgICAgICAgICAgICAgICAgICAgICAgICAgICAgICAgICAgICAgICAgICAgICAg ICAgICAgICAgICAgICAgICAgICAgICAgICAgICAgIC AgICAgICAgICAgDQogICAgICAgICAgICAgICAgICAgICAgICAgICAgICAgICAgICAgICAgICAgICAgIC AgICAgICAgICAgICAgICAgICAgICAgICAgICAgICAgICAgICAgICAgICAgICAgICAgICAgDQogICAgIC AgICAgICAgICAgICAgICAgICAgICAgICAgICAgICAg ICAgICAgICAgICAgICAgICAgICAgICAgICAgICAgICAgICAgICAgICAgICAgICAgICAgICAgICAgICAg ICAgDQogICAgICAgICAgICAgICAgICAgICAgICAgICAgICAgICAgICAgICAgICAgICAgICAgICAgICAg ICAgICAgICAgICAgICAgICAgICAgICAgICAgICAgIC AgICAgICAgICAgICAgDQogICAgICAgICAgICAgICAgICAgICAgICAgICAgICAgICAgICAgICAgICAgIC AgICAgICAgICAgICAgICAgICAgICAgICAgICAgICAgICAgICAgICAgICAgICAgICAgICAgICAgDQogIC AgICAgICAgICAgICAgICAgICAgICAgICAgICAgICAg ICAgICAgICAgICAgICAgICAgICAgICAgICAgICAgICAgICAgICAgICAgICAgICAgICAgICAgICAgICAg ICAgICAgDQogICAgICAgICAgICAgICAgICAgICAgICAgICAgICAgICAgICAgICAgICAgICAgICAgICAg ICAgICAgICAgICAgICAgICAgICAgICAgICAgICAgIC AgICAgICAgICAgICAgICAgDQogICAgICAgICAgICAgICAgICAgICAgICAgICAgICAgICAgICAgICAgIC AgICAgICAgICAgICAgICAgICAgICAgICAgICAgICAgICAgICAgICAgICAgICAgICAgICAgICAgICAgDQ w5C6zlGWEtFNIuBE5zPQw5Dn2+WVwIJdXkZYM5ffTe mF4OMU1ab8BbHWmyCEUkl9BsXXa4TZ1ZLVJgBBnlTP2IRBtuvz5VZSYxTTReuRYMa7yiYiToDRT6LZVl WvsyYM4NVTWhD2aipyJrVPBkHNDRGFxhXTQAWZtrZHDEGFPqSOJzGoGmKIkcLW6Pq2ZuvWK7CVl+Pg0K FI0vb8MlDGlrKaJwUW4rqo9DVJlPKdCdD7JikiV6CZ KwXGVsRc5IQBHvNBFplRTiOrAlOOXWPlLbH2NsuH21IXSCIo2+QGqmfrNxZjiZPbDnQBOra3JlZAv7JC 4HHFEeVIj5rKHoNV6yiKRmrKUuMQwgNI8ZLYS4BPkwWXTwOIYLGU6UEHaqMLU0TqqpdtLbwJIrQPztGG 9QYXJlbnQgMjIgMCBSDQo+Ev7ZIE9rn9JlPHmeDJNj JR4eyc9RVCiTTeTsD2Z5qRZjB2I3JYfuJn8ULKLlGNYvFuJjOYSWDWwzPZ1HTM1eedW6SA1IhRKkZAOs SYSgvURzMWz4P44luAIjATyxGY1HMEW+Doroteo+Qr1SJXAkLKXkUDJiBvIjWPOMEbDsT8ZqL3SZi5ByM1Kn IT68xHlrclCdPBxwGL0MIQ4lMPNfQISRPI7MeHXoaQ 2icaPnHdWqNCGAIfWoO68blEPzJBIvIPNuALGpXv1INGSzD7FhpaGgxCadmaEaOYBnWMAKKQ9CQZkeov RfwYQaeTyqMN54iDmvFQ6LOp0AAhUkRZ7rtm0BnGGmQy5XJXCmBY2VDXCpRMEgXJIjSTD1SCBjSxCoOC mnCGJyYKCxQWS3DRFzJOXhBX8XPtZsKVGvRVy1UGFm FSYrEFMvgu8LFNZwYJVvJGNrTOFkCLDqMJWrSOlfFIYkSKQfWOy8HWEyITKfBM7UEgKcUKNuTPHfOUVq OESaEXErwa1VGTBzEHEqZuVfTxFoDRAxCORsMFxkSZKkPMV9WhS6EDLnDWHiXC9YGnUxAYUaJIH5LMdq LQLtRGLstb3TGONvAVNnTOUbXfOeFTKfWWYfAGiyHN WdPGF4GuF4PHRxWUFyPZ7NQfGdLFBfRVXmWDGpZBAcSLRfre6DJYPqEGVaICW5IXTaOAToDWZrGNemRG MgVQTfHHS8TAHzMXLmXL1EWmGqUCUvUZG5OIYyOADeIYHcha1FKVMwXOVtTUu4QSHfHUCxZYKcHIbzGM EdQUQpCEG7MPLuWJAtCP8FKwUaVGFsXHWtQyVdGLMn BQNlxs2NPLJpGQPfUxI8ESGvOEDjXSMjRShkCHCeMOI9FKVrMUMpSVFmVA9QOpRkLUCkYYo6BnJmDMDx JEEfug7QFXSnRRSjDFL8NJUnTVZoBVAfSIbbVXKwELOaThThPDUlBLLtZR6APrTmYPZkVtF5BHQrHCKp LWLmwf6MQUFkIHFeIRrvTlDdNIQwSSPiKKo4ocDgjG StTGw7FU3FG8AtvuAdOyZODr7Nd714BVU3QRQuTy2DO7gmPk3cXWSpCUKUFr1QZCp0ULAvCgvuVbH9HN AjYKQkPJx2ZyJfSCI4QET4CxP4PCT+GOqhANZ7N8IsHVi6KqB5ATTzYKuvDfM9VXx7YLNyEtT5JK6bIH ANCj4+HWcjaYPvlIzyZOKLOjFiVAD1LDlsVULAKn4K ID Date Data Source [id number] 11/19/2020 11:45:51 AM EDT [facility] NT INFORMATIONPatient MRN Name Date of Age Gend*PT [id number] Gallito Hinojosa 1995 25 years M [facility] Location Admission Date/Time Visit ID Attending Provider --- --- --- --- EPI ID CSN Admitting Pro vider [id number] ---Arterial Line PlacementPatient location during procedure: ORIndications [...] rce(s) Supporting Document(s) ID Date Data Source [id number] 11/19/2020 11:45:21 AM EDT [facility] NT INFORMATIONPatient MRN Name Date of Age Gend*PT [id number] Gallito Hinojosa 1995 25 years M [facility] Location Admission Date/Time Visit ID Attending Provider --- --- --- --- EPI ID CSN Admitting Pro vider [id number] ---AirwayPatient location during procedure: ORUrgency: electiveDifficult airway: [...] cmPlacement verified by: chest auscultation and + VKND1Wrwlsakcuowr: CTA and equal breath sounds bilateralGrade view: grade IIa - partial view of glottis Name Value Range Interpretation Code Description Data Sera rce(s) Supporting Document(s) ID Date Data Source [id number] 11/19/2020 10:48:37 AM EDT [facility] NT INFORMATIONPatient MRN Name Date of Age Gend*PT [id number] Gallito Hinojosa 1995 25 years M [facility] Location Admission Date/Time Visit ID Attending ProviderCV-11 11/19/20 1035 --- Ward Durán MD([id number]) EPI ID CSN Admitting Provider [id number] Ward Durán MD([id number])H&P reviewed. The patient was examined and there are no changes to the H&P.Ward Durán MD10:48 AM Name Value Range Interpretation Code Description Data Sera rce(s) Supporting Document(s) ID Date Data Source [id number] 11/16/2020 10:08:39 AM EDT [facility] Name Value Range Interpretation Code Description Data Sera rce(s) Supporting Document(s) EKG [facility] IBUVDz7cEnPLMwZtt6RnYhDyPVSfAB8soqy6M3A8aHZbJ5CuuZYqj6doI9AdD1QmDCRxHHOHIY8MtJKj jb2 [file] OTggMDAwMDAgbiAKMDAwMDAwMDQwOSAwMDAwMCBuIA ycKIKsXBMrCUUtAZUxHYRrXR2jMkFsSWJkQKJ2FENkLSCbZXXnfsBUHTEpARKkSSx1JBWrXILjBUGfST qbDVLwGNMvKQH5WVRqJUQaOY7eYtQsPNIoZAO8FlDxTKGqGWJrxyWYTQLgEBZsCKS9WgDqJLTmUDBrWS zbKKNcZFQdTQxxSBVwLGUnDA2oAiAuIZGoMOWsBWut JJBhVCSxzmVUVJEiRNFjOMAcObYeLRNdDZGbESwlPHZoNCZpSyP0UHGaTSKhMK8mNvZgFJMfSIO0FTvz SMHkUVOzisANZXXhLHJxYPonUIQsKEDkUGWkTOqqUEOoACKgLTA4ONPvHVUlVM3dDzDyATUbIGCaVXKv QlZ0NbVpImXXxYEnvJndgaw3LFfmX5z1GYGiIVbdEX 5cakFlJBWdDzttBo0wdLL1EAGhGmiKUw4Xw2CjbvY9apMsOiWyExHhRgVrVZ5J ID Date Data Source [id number] 11/16/2020 09:13:47 AM EDT [facility] NT INFORMATIONPatient MRN Name Date of Age Gend*PT [id number] Chandler Camargo Gallito Orta 1995 25 years M [facility] Location Admission Date/Time Visit ID Attending Provider --- --- --- Violeta Ortega([id number]) EPI ID CSN Admitting Provider [id number] ---OUTPATIENT / OBSERVATIONAL SURGICAL OR INVASIVE PROCEDUREName: Gallito Camargo : 1995 Sex: male [facility]: Dr. HopperHISTORY OF PRESENT ILLNESS: Mr Camargo is a 25 years old -Citizen Of [place] malewith history of depression, anxiety, GERD, and [...] RECORDER 08/2020 WISDOM TOOTH EXTRACTION localALLERGIES:AllergiesAllergen Reactions Worthing[place] Meal Anaphylaxis Avocado AnaphylaxisMEDICATIONS:Prior to Admission medicationsMedication [...] thyromegaly. No carotid bruits.MENTAL / NEUROLOGICAL STATUS: [id number]: Clear to auscultation. No wheezes, rhonchi or crackles.HEART: Rate rhythm regular. S1, S2. No murmur, rub or gallop.ABDOMEN: Bowel sounds positive times four. Soft, non tender. No reboundtenderness. No hepatosplenomegaly. Negative CVAT.EXTREMITIES: Pulses are symmetrical. NO edema.Anesthesia complications: DeniesUC HEALTH Frailty Scale :: 3/10 Managing Well (medical [...] parts of this document, were dictated using [employer] speaking software. A reasonable attempt at proofreading has beenmade to minimize errors. Please call with any questions or corrections.* Name Value Range Interpretation Code Description Data Sera rce(s) Supporting Document(s) ID Date Data Source [id number] 11/16/2020 05:46:21 PM EDT [facility] SPEC EXP DATE 11/20/2020ATI ENT ABO/Rh O POSITIVEANTIBODY SCREEN NEGATIVETESTING SITE PERFORMED AT [address] [place], [place] [address]BLOOD BANK COMMENT BLOOD TYPE CONFIRMED. Name Value Range Interpretation Code Description Data Sera rce(s) Supporting Document(s) TYPE AND SCREEN [facility] o f MIC ID Date Data Source [id number] 11/16/2020 04:03:58 PM EDT [facility] Name Value Range Interpretation Code Description Data Sera rce(s) Supporting Document(s) WBC 3.7 10*3/uL (4.1-11.0) L [facility] RBC 4.93 10*6/uL (4.60-6.10) [facility] HGB 15.3 g/dL (13.5-18.0) [facility] HCT 45.9 % (41.0-53.0) [facility] MCV 93.3 fL (80.0-95.0) [facility] MCH 31.0 pg (27.0-32.0) [facility] MCHC 33.2 g/dL (32.0-36.0) [facility] RDW 13.7 % (10.5-14.5) [facility] PLT 149 10*3/uL (150-450) L [facility] MPV 11.0 fL (7.1-10.7) H [facility] ID Date Data Source [id number] 11/16/2020 03:47:26 PM EDT [facility] Name Value Range Interpretation Code Description Data Sera rce(s) Supporting Document(s) SODIUM 140 mmol/L (136-145) [facility] POTASSIUM 4.3 mmol/L (3.6-5.2) [facility] CHLORIDE 104 mmol/L (100-108) [facility] CO2 32 mmol/L (22-31) H [facility] ANION GAP 4 mmol/L (7-16) L [facility] UREA NITROGEN 14 mg/dL (7-24) [facility] CREATININE 1.01 mg/dL (0.80-1.30) [facility] BUN/CREAT RATIO 13.9 RATIO (10.0-20.0) [facility] GLUCOSE 89 mg/dL (70-99) [facility] CALCIUM 9.3 mg/dL (8.4-10.2) [facility] GFR >60 ml/min/1.73m2 (>59) [facility] GFR ( AMER) >60 ml/min/1.73m2 (>59) [facility] GFR INTERPRETATION [facility] --NORMAL KIDNEY FUNCTION OR MILD DISEASE - GFR >OR= 60CHRONIC KIDNEY DISEASE - GFR 15 - 59RENAL FAILURE - GFR <15 Est. GFR calculation based on the MDRDstudy equation, which assumes a steadystate for creatinine. Est. GFR should notbe used for medication dosing. ID Date Data Source [id number] 09/23/2020 04:40:52 PM EDT [facility] NT INFORMATIONPatient MRN Name Date of Age Gend*PT [id number] Gallito Hinojosa 1995 25 years M ---PT Location Admission Date/Time Visit ID Attending Provider --- --- --- --- EPI ID CSN Admitting Pro vider [id number] ---[facility] [id number] [facility], [address] (First Floor)[place], [place] [address]Qq.: Fax: Qatient: Gallito Camargo : 1995Date: 09/23/20CARDIOLOGY TELEMEDICINE VISITPatient was identified by name and date of .Verbal consent was obtained from the patient for this telemedicine visit.Patient is aware of the risks, limitations, and benefits of a telemedicinevisit.This telemedicine assessment was conducted remotely with the assistance ofPetpace communication technology. Telephone Only Codes 44650: 21-30 minutesof medical discussion: Telephone Only .Subjective:Gallito [...] and benefitsFollow Up cryoablationSignature: Ward Durán MD, [facility], RSCardiac Electrophysiology and Arrhythmia ServiceDate: September 23, 2020Time: 4:37 PMThis document or parts of this document, were dictated using [employer]. A reasonable attempt at proofreading has been made to minimize errors.Please call with any questions or corrections. Name Value Range Interpretation Code Description Data Sera rce(s) Supporting Document(s) ID Date Data Source [id number] 08/17/2020 11:31:00 AM EST [facility] Name Value Range Interpretation Code Description Data Sera rce(s) Supporting Document(s) SARS coronavirus 2 RNA Not Detected [place] This lab was ordered by [facility] and reported by [facility]. ID Date Data Source [id number] 07/09/2020 03:02:00 PM EST [facility] ([facility]) Name Value Range Interpretation Code Description Data Sera rce(s) Supporting Document(s) Calcium [Mass/volume] in Serum or Plasma 9.3 [facility] ([facility]) Sodium 141 [facility] ([facility]) Chloride [Moles/volume] in Serum or Plasma 103 [facility] ([facility]) Carbon dioxide, total [Moles/volume] in Serum or Plasma 32.5 [facility] ([facility]) Potassium [Moles/volume] in Serum or Plasma 4.20 [facility] ([facility]) Glucose 120 74-106 [facility] ([facility]) Blood Urea Nitrogen 11 7-18 [facility] ([facility]) Creatinine 1.05 0.70-1.30 [facility] ([facility]) Glomerular filtration rate/1.73 sq M.pre dicted [Volume Rate/Area] in Serum or Plasma by Creatinine-based formula (MDRD) 99.6 [facility] ([facility]) ID Date Data Source [id number] 06/24/2020 11:06:40 AM EST [facility] NT INFORMATIONPatient MRN Name Date of Age Gend*PT [id number] Gallito Hinojosa 1995 25 years M ---PT Location Admission Date/Time Visit ID Attending Provider --- --- --- --- EPI ID CSN Admitting Pro vider [id number] ---[facility] [id number] [facility] [address], [address] (First Floor)[place], [place] [address]Dx.: Fax: Oatient: Gallito Camargo : 1995Date: 06/24/20CARDIOLOGY TELEMEDICINE VISITPatient was identified by name and date of .Verbal consent was obtained from the patient for this telemedicine visit.Patient is aware of the risks, limitations, and benefits of a telemedicinevisit.This telemedicine assessment was conducted remotely with the assistance ofPetpace communication technology. Telephone Only Codes 42098: 21-30 minutesof medical discussion: Telephone Only .Subjective:Gallito [...] all. [place] PV[place]. I am not sure he is having anyatrial fibrillation at all. I am not sure any of his symptoms already beencardiac in nature. This may all be anxiety driven. However we will need tocorrelate symptoms to his underlying cardiac rhythm. We will arrange for thepatient to have a 30-day event monitor done through [place] accountant [place]. If the event monitor shows atrial fibrillation [...] event monitor shows atrialfibrillationSignature: Ward Durán MD, [facility], [facility] Electrophysiology and Arrhythmia ServiceDate: June 24, 2020Time: 11:02 AMThis document or parts of this document, were dictated using Dragon speakingsoftware. A reasonable attempt at proofreading has been made to minimize errors.Please call with any questions or corrections. Name Value Range Interpretation Code Description Data Sera rce(s) Supporting Document(s) ID Date Data Source [id number] 05/22/2020 12:50:00 PM EST [facility] ([facility] Name Value Range Interpretation Code Description Data Sera rce(s) Supporting Document(s) Troponin Laboratory test result [facility] (Cardiology [facility]) ID Date Data Source [id number] 05/22/2020 12:50:00 PM EST [facility] ([facility]) Name Value Range Interpretation Code Description Data Sera rce(s) Supporting Document(s) White Blood Count 4.5 4.0-10.0 [facility] ([facility]) Red Blood Count 5.33 4.30-6.10 [facility] ([facility]) Platelets 168 150-450 [facility] ([facility]) Hemoglobin 15.7 [facility] ([facility]) Hematocrit 48.2 [facility] ([facility]iology [facility]) ID Date Data Source [id number] 05/22/2020 12:50:00 PM EST [facility] ([facility]) Name Value Range Interpretation Code Description Data Sera rce(s) Supporting Document(s) Calcium [Mass/volume] in Serum or Plasma 9.7 [facility] (Cardiology [facility]) Sodium 138 [facility] ([facility]) Carbon dioxide, total [Moles/volume] in Serum or Plasma 30 [facility] ([facility]) Potassium [Moles/volume] in Serum or Plasma 4.4 [facility] ([facility]) Chloride [Moles/volume] in Serum or Plasma 104 [facility] ([facility]) Blood Urea Nitrogen 14 7-18 [facility] ([facility]) Glucose 70 70-100 [facility] ([facility]) Glomerular filtration rate/1.73 sq M.pre dicted [Volume Rate/Area] in Serum or Plasma by Creatinine-based formula (MDRD) Laboratory test result [facility] ([facility]iology [facility]) Creatinine 1.06 0.70-1.30 [facility] ([facility]) ID Date Data Source [id number] 04/02/2020 02:04:26 PM EDT [facility] NT INFORMATIONPatient MRN Name Date of Age Gend*PT [id number] Gallito Hinojosa 1995 25 years M ---PT Location Admission Date/Time Visit ID Attending Provider --- --- --- --- EPI ID CSN Admitting Pro vider [id number] ---Cardiology Office NoteName: Gallito Camargo Gender: maleDate of : 1995 Age: 25 yearsPrimary Care Provider / Referring Physician: [facility]rkatheryn HistoryChief Complaint: Follow-up to recent cryoablation for atrial fibrillationHPI:This patient is a 25 years male presents today for follow-up. He has thefollowing medical problem list:1. Paroxysmal atrial fibrillation; status post cryoablation 03/20/2020Patient presents today for follow-up. He tells me that he did have episode ofchest pain and feeling short of breath postprocedure. [facility] He states that those symptoms have [...] file Gets together: Not on file Attends hinduism service: Not on file Active member of [...] History Narrative Not on fileMedications and AllergiesALLERGIES/SENSITIVITIES: Worthing[place] meal and AvocadoCurrent Outpatient Medications: metoprolol tartrate [...] parts of this document, were dictated using DeepRockDriveware. A reasonable attempt at proofreading has been made to minimize errors.Please call with any questions or corrections. Name Value Range Interpretation Code Description Data Sera rce(s) Supporting Document(s) ID Date Data Source [id number] 03/24/2020 12:46:00 PM EDT [facility] ([facility]) Name Value Range Interpretation Code Description Data Sera rce(s) Supporting Document(s) Free T4 1.05 [facility] ([facility]) Thyroid Stimulating Hormone 0.923 ME DENT (Cardiology [facility]) ID Date Data Source [id number] 03/24/2020 12:46:00 PM EDT [facility] ([facility]) Name Value Range Interpretation Code Description Data Sera rce(s) Supporting Document(s) Aspartate aminotransferase [Enzymatic activity/volume] in Serum or Plasma 24 [facility] ([facility]) Alkaline phosphatase [Enzymatic activity/volume] in Serum or Plasma 7 3 [facility] ([facility]) Alanine aminotransferase [Enzymatic activity/volume] in Serum or Pl asma 45 [facility] ([facility]) Protein [Mass/volume] in Serum or Plasma 7.6 [facility] ([facility]) Bilirubin.direct [Mass/volume] in Serum or Plasma Laboratory test res ult [facility] ([facility]) Bilirubin.total [Mass/volume] in Serum or Plasma 0.4 [facility] ([facility]) Albumin [Mass/volume] in Serum or Plasma 4.0 [facility] ([facility]) Cholesterol [Mass/volume] in Serum or Plasma Laboratory test result [facility] ([facility]) ID Date Data Source [id number] 03/24/2020 12:46:00 PM EDT [facility] ([facility]) Name Value Range Interpretation Code Description Data Sera rce(s) Supporting Document(s) Calcium [Mass/volume] in Serum or Plasma 9.6 [facility] ([facility]) Sodium 138 [facility] ([facility] Carbon dioxide, total [Moles/volume] in Serum or Plasma 30 [facility] ([facility]) Potassium [Moles/volume] in Serum or Plasma 4.1 [facility] ([facility]) Chloride [Moles/volume] in Serum or Plasma 103 [facility] ([facility]) Blood Urea Nitrogen 11 7-18 [facility] ([facility]) Glucose 95 70-100 [facility] ([facility]) Creatinine 0.98 0.70-1.30 [facility] ([facility]) Glomerular filtration rate/1.73 sq M.pre dicted [Volume Rate/Area] in Serum or Plasma by Creatinine-based formula (MDRD) Laboratory test result [facility] ([facility]) ID Date Data Source [id number] 03/24/2020 12:46:00 PM EDT [facility] ([facility]) Name Value Range Interpretation Code Description Data Sera rce(s) Supporting Document(s) White Blood Count 5.1 4.0-10.0 [facility] ([facility]) Red Blood Count 5.06 4.30-6.10 [facility] ([facility]) Platelets 132 150-450 [facility] ([facility]) Hemoglobin 15.4 [facility] ([facility]) Hematocrit 46.5 [facility] ([facility]) ID Date Data Source [id number] 03/20/2020 10:39:41 AM EDT [facility] Name Value Range Interpretation Code Description Data Sera rce(s) Supporting Document(s) &PDF [facility] KOYGEn5iKgRDUcYl20/HTDmgKFXyf4TbJNybIYc7LQgxLBPmS6PgqSphHJdIAY6iUwCVMEjQXZVqKAFG yZW E2s7BrZTTtEaRBmMQ1XT3wJLYffsRgzgR6gY1qJJ1XRAW+Ua2JZQ8qp6GbUPc9FDGrt5UgWXesFOo3S2 CbnEKvdvSqWpbhdFTVTVOoWMRgT3odfgj7qNUcQiR4Fd2UTpJyo8WaKCUaATpIqpNtU4/jNhZ+X6D/gc A+dAo0MW+xbRFv2vmlpguJYHLWkmAZI1QUGC4jN7PH iGykc1YwmRodXTlTIFtTUuLckz8j7upUItQFpR4/oOMwwBgj/cE4GLDG8dC94q7li8tBZhvkl9Yh/TkQ oWuNMwdBnbcjHYD0siIlXcyuJGmtYZIqzLZaNJ7q4TzAtzxkfMUUOnlnz+riEnEZMHREBeZotngz/Q7N /dhI7stOvOqUdOGkj6PmYdIQrf+OXekYDzVZ6GSX8d QO20J4W8RtqavmSTAdwTNFmO51Q9OnSBaZywyFcWYEUS3G9Sm7887WqyYhMcUBLv7qWzsDJt+f899mwr idTV4cZkgq5+X5zJ/ArViRZghwXxccnmJsuSiEhCXWQkjZ9J4jalsCZwtgbJNCY9bV/KyX1DpWTLXavV XLCon9vHuOxlC2T9T2FvgA+Ut46y+kmCNnamRWEb0L a11BDFLawLYOSeXWcTQYZJSPvAMICDKY7d5PxNTQONJczaC47CqowepUN7sjMPIP5TkfgE6WmoXRLAAZ [file] G5FvDxCZJpMBA9IUFwKmtzZe6hMWMKXh0+LGfbuTCggDewTPPJUvX0SaU4PPfoMQJZQw4B ID Date Data Source [id number] 03/20/2020 09:48:22 AM EDT [facility] NT INFORMATIONPatient MRN Name Date of Age Gend*PT [id number] Gallito Hinojosa 1995 25 years M HOPPT Location Admission Date/Time Visit ID Attending Provider --- --- --- --- EPI ID CSN Admitting Pro vider [id number] ---Arterial Line PlacementPatient location during procedure: ORIndications [...] rce(s) Supporting Document(s) ID Date Data Source [id number] 03/20/2020 09:47:46 AM EDT [facility] NT INFORMATIONPatient MRN Name Date of Age Gend*PT [id number] Gallito Hinojosa 1995 25 years M HOPPT Location Admission Date/Time Visit ID Attending Provider --- --- --- --- EPI ID CSN Admitting Pro vider [id number] ---AirwayPatient location during procedure: ORUrgency: electiveDifficult airway: [...] cmPlacement verified by: chest auscultation and + [id number]: equal breath sounds bilateral and CTAGrade view: grade I - full view of glottis Name Value Range Interpretation Code Description Data Sera e(s) Supporting Document(s) ID Date Data Source [id number] 03/20/2020 08:48:41 AM EDT [facility] NT INFORMATIONPatient MRN Name Date of Age Gend*PT [id number] Gallito Hinojosa 1995 25 years M HOPPT Location Admission Date/Time Visit ID Attending ProviderCV-05 03/20/20 0756 --- Ward Durán MD([id number]) EPI ID CSN Admitting Provider [id number] Ward Durán MD([id number])H&P reviewed. The patient was examined and there are no changes to the H&P.Ward Durán MD8:48 AM Name Value Range Interpretation Code Description Data Sera rce(s) Supporting Document(s) ID Date Data Source [id number] 03/15/2020 08:21:00 AM EDT [facility] Name Value Range Interpretation Code Description Data Sera rce(s) Supporting Document(s) [facility] This lab was ordered by [facility] and reported by [facility]. ID Date Data Source [id number] 03/17/2020 03:07:40 AM EDT [facility] Name Value Range Interpretation Code Description Data Sera rce(s) Supporting Document(s) SARS-COV-2 MYAH [facility] Not DetectedReference range: Not Detecte d This nucleic acid amplification test was developed and its performance characteristics determined by [employer]. Nucleic acid amplification tests include PCR and [...] result in this assay. Performed At: [facility] [address] [place] [address] [id number] Jorge Fernando MD Ph:[phone] ID Date Data Source [id number] 03/13/2020 01:31:20 PM EDT [facility] NT INFORMATIONPatient MRN Name Date of Age Gend*PT [id number] Gallito Hinojosa 1995 25 years M OPPT Location Admission Date/Time Visit ID Attending Provider --- --- --- Violeta Ortega([id number]) EPI ID CSN Admitting Provider [id number] ---OUTPATIENT / OBSERVATIONAL SURGICAL OR INVASIVE PROCEDUREName: Gallito Camargo : 1995 Sex: male Care Provider: [facility] CareAttending Physician: Dr. Durán.HISTORY OF PRESENT ILLNESS: 25 years old black male with a 3-year history ofpalpitations, shortness of breath and syncope related to a diagnosis of atrialfibrillation. He is currently serving in the [employer] and was to undergo [facility] and declined due to theinexperience of the cardiovascular operating room nurse. His last syncopal episode was inD2018. He [...] Laterality Date WISDOM TOOTH EXTRACTION localALLERGIES:AllergiesAllergen Reactions Worthing[place] Meal Anaphylaxis Avocado AnaphylaxisMEDICATIONS:Prior to Admission medicationsMedication [...] thyromegaly. No carotid bruits.MENTAL / NEUROLOGICAL STATUS: [id number]: Clear to auscultation. No wheezes, rhonchi or crackles.HEART: Rate rhythm regular. S1, S2. No murmur, rub or gallop.ABDOMEN: Bowel sounds positive times four. Soft, non tender. No reboundtenderness. No hepatosplenomegaly. Negative CVAT.EXTREMITIES: Pulses are symmetrical. No edema.Anesthesia complications: [facility] Fra[facility] :: 1/10 Very Fit (robust, active, energetic, well motivatedand fit.These people commonly exercise regularly and are in the most fit groupfor their age).Stop Bang Questionnaire - Total Score:STOP-Bang Total Score: 2ASSESSMENT: Paroxysmal atrial fibrillationPLAN: Procedure: Atrial fibrillation ablation and transesophageal echo.03/13/2020 1:31 PMHarini Hopper document or parts of this document, were dictated using Gatekeeper System software. A reasonable attempt at proofreading has beenmade to minimize errors. Please call with any questions or corrections.* Name Value Range Interpretation Code Description Data Sera rce(s) Supporting Document(s) ID Date Data Source [id number] 03/13/2020 12:40:00 PM EDT [facility] ([facility]) Name Value Range Interpretation Code Description Data Sera rce(s) Supporting Document(s) Red Blood Count 5.10 [facility] ([facility]) White Blood Count 4.0 [facility] ([facility]) Platelets 130 [facility] ([facility] Hemoglobin 15.9 [facility] ([facility]) Hematocrit 47.3 [facility] ([facility]) ID Date Data Source [id number] 03/13/2020 12:40:00 PM EDT [facility] ([facility]) Name Value Range Interpretation Code Description Data Sera rce(s) Supporting Document(s) Sodium 140 [facility] ([facility] Carbon dioxide, total [Moles/volume] in Serum or Plasma 33 [facility] ([facility]) Calcium [Mass/volume] in Serum or Plasma 9.5 [facility] ([facility]) Chloride [Moles/volume] in Serum or Plasma 104 [facility] ([facility]) Glucose 85 [facility] ([facility]) Blood Urea Nitrogen 11 [facility] ([facility]) Potassium [Moles/volume] in Serum or Plasma 4.1 [facility] ([facility]) Glomerular filtration rate/1.73 sq M.pre dicted [Volume Rate/Area] in Serum or Plasma by Creatinine-based formula (MDRD) Laboratory test result [facility] ([facility]) Creatinine 1.02 [facility] ([facility]) ID Date Data Source [id number] 03/13/2020 12:11:56 PM EDT [facility] Name Value Range Interpretation Code Description Data Sera rce(s) Supporting Document(s) EKG [facility] XDHHJb4fDeJJRlAcb1CnFbJwGECeWC7ymxi4L4W5qUGrC3IpsUCpw7sfP7DjD3UrVGMrAQBAWT0GdVEj jb2 [file] f/vp lab/4///xFPz3/OtxS56l63Na1K/Zl0ZZjy/sbrW0T22C+fjwL1NYX+SyM/9yz+PIRSP/cs/i/P8L/ 757Ii97q1c/8YA77amd/xSpcxJKcziz81ED76sw+1P 2exX/4v2fxH/CexZeap+jpNy1ychq/XObkXkJJSPjjRSDxUWcwkSeZFNWLK6CQcHPzAkFZkeQMATCzKr f41OHH094jOyDEgewnq8dg8NWc3fR1q/+AvFIIKkEyqHningzKexZ/Hj8cDrkwIL4/7ln8X+SNf+5Z/J +j+z/5RU4LhfHeZJStrLGwgTE0atmPD+rAu4JBFFSJ MB+OAZuGUYHvX6QN4py27Bx11UhucTQdX6G1YF8GOHBPxJpOzdCiqP7gTQuBHclI+yEIgkJABpsMNhls ZkxnjJvzh8I7WwSfXUDEjYU8klQxNOUBBTRSMKdQXCLTTXrRDLRYFMgTWGSMQJHwNWFEtEUTUPZEGrAC [file] 1y98Aq6zNvdabWj421gCx419In1/P98/uq9tzHPbC7y879SSt99y2c3K4o05pAQ4l3p7C4iy8u2/Pxv/ KZ9/38/7juzzHuXfym+7D6hv6VOtOA+PR0hC7j2yf0iAjJKxTVQzVHfTM1gQ2KgxHmy3MwgH5MbgU8Yc oN7o3/45h+Pz4tL6rzkvdqrnlNZywwPQeeJVslgdIa a1yK3Wrscgodx5da2Wcejfpjl9ab7Yaagnfvqlfe7oqQaj1mM8L+ptGN+V6F9K26sggwx1i51V1s22ww MfnYN/2xq218MaX7juKGNyUat/8yHxFRayMo35g0I1M/080M8D/TzQzwPjOzG+E+6hzX1PiijoZ1IkVc V14RbR58zd598Li9WTGBmtjod/9if/lXxm0Xsh0ojo 9i4m679HsbJYmbGog9ctrTeoyqzumd7eRUnutz35X+Y8hU7827ctI1F0dt+8O8Ns8z8CGos34sI4VqLB 8QLxvrnn6XELpxzQ87794uTHux/1jvz3U+6JV8ujT2ZHfBjylByl7o46809e7NFdRZ+EF2lU1QZd/h1w 2iuVA+XycoC+ArzITq8r0f8MP+Ren1bR89v6K7715/ xgl0WQiEy3zn5dmWJgrSgkb+/rP3VIyc7/I//i93x/Pz1Zne/vp strategic partnerships+aoT8wQ7PEz/x5FlloSE8YlLftu4H [file] 41Fr1r6M84pI+/JVh/kagFuMSLaeuammkH0j6F5 [file] 13PMU2JMQdu454R70pF8PaxkQufFg8x03/94mML0+Z eJz+ap8uYanT6D8pA7QvM07nS+3IagiS+Qw6i/7W2qTtY2LhvovMUxmuH3zmXGF1dD9xTnhCbm/g80s9 irUoYjLVT9slHnvIrgbmViJraSSDxuCSRvKvl5MP1ErARaAYSdY9A4XTEkpf5qJSNnSOYoyNNzGdPcOU YCYC5JqHIrWR8KFZe3QWWhZBSfDlNhCSYeueY1SVNp WZIwTICuU1VxaoGjlMKzGNPuSv4+BF5yd0AgJtBvLYNjRpd2XR2BzCBuZK3NnCFylA7cpyYrQ932lbXm KKNxGermm8CyKRxcDCPVVQ8GPRU5TXQ2EHFsBd7+VS7pa9MnFwJxSWInTlr9LF9GtEPpd7IrRW9GC6Am SMEgYIDMSAW7y3VwBWTdounzlhfuL3NqCJV9dD8bHH S4GBTyQGruSBPkQHViHiSxUFKsHIyrRBRjWGAfCEMfHJHcPGz3yLCoCK2FZ4OmVKYlCQFAEIRexwQvQh 9tCIoZTZ3fTdKRWFeQBKCuUR6ROvNeHAQqLsr5UkS8POHhU4OsrrSdzMWgPWODZSbpBupvMLIxpU8lpJ qqF9FzMAC2b6SlTW1ZR9HmOTTbAERMVAI1a0VjNPQs xtawwonzQnJsRJYhTWAkXGDsNI6Izi9zgYBopfFeOMFHSAuhHbrfYO4rjFraiqbnG3DpoSNhEGU+PmVu AW0nqc5+SlNzFADpZcn0AXOpMNeiCOGzYYDwZSQlB3gcKCUnPcVcUYJbXuXvFY3Ya2XxrHNcQe8syiJj YmoKeHJlZgogICAgIDAgICAgMjQKMDAwMDAwMDAwMC I5HPHbZKBbYXbaVGThRKApJMhiPBQnPRWpWN2jXkQuIXOcJJZ8QIEpXEQeZAUvfzBEPQApILZ5TMkbMZ LdTLWxEXHwIFqsJKDqGJYuZXUhSLR6BPR8RQLhVpMuXUNlSMEwCAEuOADuRJIrdnYETYPhVFZqVNL1IZ ZrILGaUHHkNBrvQMRiGWCjWUogFKFkNYIaTH1qTdGw FGDdNZZnCOebLFEkOGQmqzDPKGOjBNWiXQFrCPWvKLNpBEYgZPnsXZRmNBPuNXZaSKRxGPAtNR3uCsUz RGSxNDM5SKEbBRPcDBXynvSKCFFnXJLwTYg6PPLpRQPbWESkZVsgKEGzNNBwCOL3UDFrVDQvGT4dIhCw GJReBPC0RmRoDPUtPUZgngKUCNZiXHXvWEY4ZaDeCM YrGLAmXZdiWVOrKFAjIWmdRSLwVCXnQQ2qPpOzFCDvTTRtUVvfEHMpRLExqbLEJAEiRACpGFIsNlIyQB XoRPMaLYwrCGOuUNHoKiXwDBAyFCCuYL1kEqJtMHOaERX6TCczFMLvGJFpbdLVWBUdJEDnPLzeHDZmVB XwIYXgGMweHTBcYKVrJDM8UALbEWEzJS3hRgPhQOAy KAFtQLWiIcQ5TmEbNpUNsHLixHjvmwz6CCnoC0n9XXLeZFduQG5witSrEGLiGnbrOd6hiQP4HAYaStzI Hf8Qg3LdxyP0ieWlNaRtInS4UqHrPH0F ID Date Data Source [id number] 03/13/2020 10:22:00 [facility] CHESTCLINICAL HISTORY: Persistent atrial [...] rce(s) Supporting Document(s) ID Date Data Source [id number] 03/13/2020 07:44:40 PM EDT [facility] SPEC EXP DATE 03/21/2020PATI ENT ABO/Rh O POSITIVEANTIBODY SCREEN NEGATIVETESTING SITE PERFORMED AT [address] [place] [address] Name Value Range Interpretation Code Description Data Sera rce(s) Supporting Document(s) TYPE AND SCREEN [facility] PATIENT ABO/Rh O POSITIVE ID Date Data Source [id number] 03/13/2020 03:58:34 PM EDT [facility] Name Value Range Interpretation Code Description Data Sera rce(s) Supporting Document(s) SODIUM 140 mmol/L (136-145) [facility] POTASSIUM 4.1 mmol/L (3.6-5.2) [facility] CHLORIDE 104 mmol/L (100-108) [facility] CO2 33 mmol/L (22-31) H [facility] ANION GAP 3 mmol/L (7-16) L [facility] UREA NITROGEN 11 mg/dL (7-24) [facility] CREATININE 1.02 mg/dL (0.80-1.30) [facility] BUN/CREAT RATIO 10.8 RATIO (10.0-20.0) [facility] GLUCOSE 85 mg/dL (70-99) [facility] CALCIUM 9.5 mg/dL (8.4-10.2) [facility] GFR >60 ml/min/1.73m2 (>59) [facility] GFR ( AMER) >60 ml/min/1.73m2 (>59) [facility] GFR INTERPRETATION [facility] --NORMAL KIDNEY FUNCTION OR MILD DISEASE - GFR >OR= 60CHRONIC KIDNEY DISEASE - GFR 15 - 59RENAL FAILURE - GFR <15 Est. GFR calculation based on the MDRDstudy equation, which assumes a steadystate for creatinine. Est. GFR should notbe used for medication dosing. ID Date Data Source [id number] 03/13/2020 03:36:51 PM EDT [facility] Name Value Range Interpretation Code Description Data Sera e(s) Supporting Document(s) WBC 4.0 10*3/uL (4.1-11.0) L [facility] RBC 5.10 10*6/uL (4.60-6.10) [facility] HGB 15.9 g/dL (13.5-18.0) [facility] HCT 47.3 % (41.0-53.0) [facility] MCV 92.6 fL (80.0-95.0) [facility] MCH 31.1 pg (27.0-32.0) [facility] MCHC 33.6 g/dL (32.0-36.0) [facility] RDW 13.8 % (10.5-14.5) [facility] PLT 130 10*3/uL (150-450) L [facility] MPV 10.4 fL (7.1-10.7) [facility] ID Date Data Source [id number] 03/09/2020 02:03:44 PM [facility] INFORMATIONPatient MRN Name Date of Age Gend*PT [id number] Gallito Hinojosa 1995 25 years M ---PT Location Admission Date/Time Visit ID Attending Provider --- --- --- --- EPI ID CSN Admitting Pro vider [id number] ---Addended by: SUBHA BLAND on: 03/09/2020 02:03 PM Modules accepted: Orders Name Value Range Interpretation Code Description Data Srea rce(s) Supporting Document(s) Procedure Social History Code Duration Value Status Description Data Source(s ) Alcohol intake 03/02/2021 12:00:00 AM EDT Ex-drinker (finding) comp leted Ex- drinker (finding) [facility] Alcohol intake 11/19/2020 12:00:00 AM EDT Ex-drinker (finding) comp leted Ex- drinker (finding) [facility] Alcohol intake 11/16/2020 12:00:00 AM EDT Ex-drinker (finding) comp leted Ex- drinker (finding) [facility] Alcohol intake 09/22/2020 12:00:00 AM EDT Not Currently completed [facility] Cigarette pack-years 09/22/2020 12:00:00 AM EDT UNK completed [facility] Cigarettes smoked current (pack per day) - Reported 09/23/19 12:00:00 AM EDT UNK completed [facility] Smoking 09/22/2020 12:00:00 AM EDT Current every day smoker co mpleted Current every day smoker [facility] Alcohol intake 06/24/2020 12:00:00 AM EST Not Currently completed [facility] Cigarette pack-years 06/24/2020 12:00:00 AM EST UNK completed [facility] Cigarettes smoked current (pack per day) - Reported 06/24/19 12:00:00 AM EST UNK completed [facility] Smoking 06/24/2020 12:00:00 AM EST Current every day smoker co mpleted Current every day smoker [facility] Vital Signs ID Date Data Source UNK Name Value Range Interpretation Code Description Data Source(s) Systolic blood pressure--sitting 136 mm[Hg] 136 mm[Hg] [facility] ([facility]) Ra, large cuff Heart rate 111 /min 111 /min [facility] ([facility]) 108, regular Diastolic blood pressure--sitting 86 mm[Hg] 86 mm[Hg] [facility] ([facility]) Ra, large cuff Body weight 179.00 [lb_av] 179.00 [lb_av] MEDEN T ([facility]) in full uniform 8 lbs Body height 68 [in_i] 68 [in_i] [facility] ([facility]) 5'8" Body mass index (BMI) [Ratio] 27.2 kg/m2 27.2 k g/m2 [facility] ([facility]) Systolic blood pressure 120 mm[Hg] 120 mm[Hg] M EDENT ([facility] ) Diastolic blood pressure 80 mm[Hg] 80 mm[Hg] [facility] ([facility] ) Heart rate 72 /min 72 /min [facility] ([facility] ) Body height 67 [in_i] 67 [in_i] [facility] ([facility] ) 5'7" Body weight 168.00 [lb_av] 168.00 [lb_av] MEDEN T ([facility]) Body mass index (BMI) [Ratio] 26.3 kg/m2 26.3 k g/m2 [facility] ([facility]) [place] body weight 148 [lb_av] 148 [lb_av] MEDEN T ([facility]) Body temperature 97.7 [degF] 97.7 [degF] [facility] ([facility]) Body height 66 [in_i] 66 [in_i] [facility] ([facility]) 5'6" Body weight 169.50 [lb_av] 169.50 [lb_av] [facility] T ([facility]) Body mass index (BMI) [Ratio] 27.4 kg/m2 27.4 k g/m2 [facility] ([facility]) Systolic blood pressure 118 mm[Hg] 118 mm[Hg] [facility] Diastolic blood pressure 66 mm[Hg] 66 mm[Hg] [facility] Heart rate 101 /min 101 /min [facility] Oxygen saturation in Arterial blood by Pulse oximetry 99 % 99 % [facility] Body temperature 36.5 Delphine 36.5 Delphine [facility] Respiratory rate 18 /min 18 /min [facility] Body weight 76.794 kg 76.794 kg [facility] Body mass index (BMI) [Ratio] 26.52 kg/m2 26.52 kg/m2 [facility] Systolic blood pressure 121 mm[Hg] 121 mm[Hg] [facility] Diastolic blood pressure 78 mm[Hg] 78 mm[Hg] [facility] Heart rate 85 /min 85 /min [facility] Body temperature 36.28 Delphine 36.28 Delphine [facility] Respiratory rate 16 /min 16 /min [facility] Body height 170.2 cm 170.2 cm [facility] Body weight 76.658 kg 76.658 kg [facility] Body mass index (BMI) [Ratio] 26.47 kg/m2 26.47 kg/m2 [facility] Oxygen saturation in Arterial blood by Pulse oximetry 100 % 100 % [facility] Body weight 175.00 [lb_av] 175.00 [lb_av] MEDEN T ([facility]) in full uniform 8 lbs Body height 68 [in_i] 68 [in_i] [facility] ([facility]) 5'8" Body mass index (BMI) [Ratio] 26.6 kg/m2 26.6 k g/m2 [facility] ([facility]) Systolic blood pressure--sitting 124 mm[Hg] 124 mm[Hg] [facility] ([facility]) Ra, large cuff Diastolic blood pressure--sitting 72 mm[Hg] 72 mm[Hg] [facility] ([facility]) Ra, large cuff Diastolic blood pressure--sitting 72 mm[Hg] 72 mm[Hg] [facility] ([facility]) Ra, large cuff Body weight 173.00 [lb_av] 173.00 [lb_av] MEDEN T ([facility]) in full uniform 6 lbs Body height 68 [in_i] 68 [in_i] [facility] ([facility]) 5'8" Body mass index (BMI) [Ratio] 26.3 kg/m2 26.3 k g/m2 [facility] ([facility]) Systolic blood pressure--sitting 122 mm[Hg] 122 mm[Hg] [facility] ([facility]) Ra, large cuff Body mass index (BMI) [Ratio] 26.1 kg/m2 26.1 k g/m2 [facility] ([facility]) Body weight 172.00 [lb_av] 172.00 [lb_av] MEDEN T ([facility]) in full uniform Body height 68 [in_i] 68 [in_i] [facility] ([facility]) 5'8" Heart rate 72 /min 72 /min [facility] ([facility]) regular Respiratory rate 16 /min 16 /min [facility] ( [facility]) nonlabored Systolic blood pressure--sitting 118 mm[Hg] 118 mm[Hg] [facility] ([facility]) Ra, large cuff Diastolic blood pressure--sitting 78 mm[Hg] 78 mm[Hg] [facility] ([facility]) Ra, large cuff Heart rate 71 /min 71 /min [facility] ([facility]) Body weight 175.00 [lb_av] 175.00 [lb_av] MEDEN T ([facility]) Systolic blood pressure--sitting 118 mm[Hg] 118 mm[Hg] [facility] ([facility]) large cuff, Ra Diastolic blood pressure--sitting 80 mm[Hg] 80 mm[Hg] [facility] ([facility]) large cuff, Ra Body height 68 [in_i] 68 [in_i] [facility] ([facility]) 5'8" Body mass index (BMI) [Ratio] 26.6 kg/m2 26.6 k g/m2 [facility] ([facility]) Patient Treatment Plan of Care Planned Activity Planned Date Details Description Data Source (s) Flecainide Acetate 50 MG Oral Tablet 03/03/2021 12:00:00 AM EDT [facility] rivaroxaban 20 MG Oral Tablet 12/23/2020 12:00:00 AM EDT [facility] normal saline flush 0.9 % injection 3 mL 11/19/2020 02:00:00 PM EDT [facility] normal saline flush 0.9 % injection 3 mL 11/19/2020 02:00:00 PM EDT [facility] normal saline flush 0.9 % injection 3 mL 11/19/2020 02:00:00 PM EDT [facility] fentaNYL Citrate (PF) (SUBLIMAZE) injection 25 mcg 11/19/2020 01 :20:51 PM EDT [facility] HYDROmorphone (DILAUDID) injection 0.5 mg 11/19/2020 01:20:51 PM ED T [facility] Albuterol 0.833 MG/ML / Ipratropium [place] 0.167 MG/M L Inhalant Solution 11/19/2020 01:20:51 PM EDT [facility] 10 ML Atropine Sulfate 0.1 MG/ML Prefilled Syringe 11/19/2020 01 :20:50 PM EDT [facility] rivaroxaban 20 MG Oral Tablet 03/24/2020 12:00:00 AM EDT [facility]
--- NOTE | 2021-04-22 14:01 | REP ---
INDICATION: cough, hemoptysis (on blood thinners). COMPARISON: 01/20/2021 the latest prior portable exam TECHNIQUE: PA and lateral FINDINGS: The superior mediastinal structures are midline. The cardiac silhouette is unremarkable in size, shape, and position. The diaphragmatic surfaces of the lungs are regular, and the costophrenic angles are clear. The pulmonary baum are clear. The imaged osseous structures are intact. The loop recorder is unchanged. IMPRESSION: There is no acute cardiopulmonary disease. <Electronically signed by Dewey Pardo > 04/22/21 [id number]
[2021-04-22 14:29] LABS: BASO % 0.6 % (0.0-1.0); EOS # 0.1 10^3/uL (0.0-0.5); EOS % 1.2 % (0.0-3.0); HEMATOCRIT 48.1 % (42.0-52.0); HEMOGLOBIN 15.9 g/dl (13.5-17.5); LYMPH # 1.5 10^3/uL (1.5-5.0); LYMPH % 21.9 % (24.0-44.0); MEAN CORPUSCULAR HEMOGLOBIN 30.5 pg (27.0-33.0); MEAN CORPUSCULAR HGB CONC 33.1 g/dl (32.0-36.5); MEAN CORPUSCULAR VOLUME 92.1 fl (80.0-96.0); MONO # 0.9 10^3/uL (0.0-0.8); MONO % 12.6 % (2.0-8.0); NEUTROPHILS # 4.3 10^3/uL (1.5-8.5); NEUTROPHILS % 63.6 % (36.0-66.0); PLATELET COUNT, AUTOMATED 147 10^3/uL (150-450); RED BLOOD COUNT 5.22 10^6/uL (4.30-6.10); WHITE BLOOD COUNT 6.8 10^3/uL (4.0-10.0)
[2021-04-22 14:40] LABS: INR 1.46; PROTHROMBIN TIME 18.2 SECONDS (12.7-14.5)
[2021-04-22 14:41] LABS: PARTIAL THROMBOPLASTIN TIME 45.7 SECONDS (25.9-37.0)
[2021-04-22 15:02] LABS: RSV AMPLIFICATION NEGATIVE (NEGATIVE)
[2021-04-22] MEDS ORDERED: methylPREDNISolone 125MG 2ML VIAL IV ONE (15:15)
[2021-04-22] MEDS ORDERED: MEDR4PAK PO ×2 (15:59→16:19)
[2021-04-22] MEDS ORDERED: BENZ200C70 PO ×2 (15:59→16:19)
[2021-04-22 16:04] VITALS: BP 129/81
--- NOTE | 2021-04-23 07:50 | ECGEPIP ---
[facility] - ED Test Date: 2021-04-22 Pat Name: CRISTIANA HERNANDEZ Department: Room: - Gender: Male Tool Planner: MICHELLEMICJUAN FRANCISCO : 1995 Requested By: ANNIE SAHU PA-C. Order Number: [id number] Reading MD: Cade Ashford Measurements Intervals [place] Rate: 80 P: 55 CO: 192 QRS: 47 QRSD: 88 T: -33 QT: 342 QTc: 394 Interpretive Statements Normal sinus rhythm ST & T wave abnormality, consider inferior ischemia SIMILAR TO 04/19/21 Electronically Signed on 04-23-2021 7:50:44 EST by Cade Ashford
== END 2021-04-22 16:19 | disposition home or self-care (01) ==
LOC: M ED 11:19
DX: R04.2 Hemoptysis (principal); D68.8 Other specified coagulation defects; M54.42 Lumbago with sciatica, left side; M51.36 Other intervertebral disc degeneration, lumbar region; Z79.01 Long term (current) use of anticoagulants; Z79.899 Other long term (current) drug therapy; Z91.010 Allergy to peanuts; Z91.018 Allergy to other foods
CPT/HCPCS: 71046; 80047; 81001; 85025; 85610; 85730; 87086; 87631; 93005; 96361; 96374; 96375; 99284; J2270; J2930

== ENCOUNTER 2021-04-25 11:11 | Emergency (ER) | payer OTHER ==
[~2021-04-25] VITALS: Ht 170.2 cm; Wt 73.6 kg
[~2021-04-25 11:11] MED LIST changes: +BENZ200C70 PO; +MEDR4PAK PO
[2021-04-25] MEDS ORDERED: FLEC50HA PO (11:19)
--- OUTSIDE RECORDS SUMMARY | 2021-04-25 11:19 | CCD ---
Author Author [facility] Organization [facility] Address Unknown Phone Unavailable Care Team Providers Care Charge Lpn Name Role Phone Deny, L Olimpia PA [...] L Olimpia PA Unavailable Unavailable UNKNOWN, [facility] Unavailable Unavailable Rodney Bermudez MD Unavailable Unavailable [...] Peck PA-C Unavailable Unavailable ZABOROWSKI, J SUBHA TELE RN Unavailable Unavailable ZABOROWSKI, J SUBHA TELE RN Unavailable Unavailable ZABOROWSKI, J SUBHA TELE RN Unavailable Unavailable ZABOROWSKI, J SUBHA TELE RN Unavailable Unavailable ZABOROWSKI, J SUBHA TELE RN Unavailable Unavailable ZABOROWSKI, J SUBHA TELE RN Unavailable Unavailable ZABOROWSKI, J SUBHA TELE RN Unavailable Unavailable ZABOROWSKI, J SUBHA TELE RN Unavailable Unavailable ZABOROWSKI, J SUBHA TELE RN Unavailable Unavailable ZABOROWSKI, J SUBHA TELE RN Unavailable Unavailable ZABOROWSKI, J SUBHA TELE RN Unavailable Unavailable ZABOROWSKI, J SUBHA TELE RN Unavailable Unavailable ZABOROWSKI, J SUBHA TELE RN Unavailable Unavailable ZABOROWSKI, J SUBHA TELE RN Unavailable Unavailable ZABOROWSKI, J SUBHA TELE RN Unavailable Unavailable ZABOROWSKI, J SUBHA TELE RN Unavailable Unavailable ZABOROWSKI, J SUBHA TELE RN Unavailable Unavailable ZABOROWSKI, J SUBHA TELE RN Unavailable Unavailable ZABOROWSKI, J SUBHA TELE RN Unavailable Unavailable ZABOROWSKI, J SUBHA TELE RN Unavailable Unavailable ZABOROWSKI, J SUBHA TELE RN Unavailable Unavailable ZABOROWSKI, J SUBHA TELE RN Unavailable Unavailable ZABOROWSKI, J SUBHA TELE RN Unavailable Unavailable ZABOROWSKI, J SUBHA TELE RN Unavailable Unavailable ZABOROWSKI, J SUBHA TELE RN Unavailable Unavailable ZABOROWSKI, J SUBHA TELE RN Unavailable Unavailable ZABOROWSKI, J SUBHA TELE RN Unavailable Unavailable ZABOROWSKI, J SUBHA TELE RN Unavailable Unavailable ZABOROWSKI, J SUBHA TELE RN Unavailable Unavailable ZABOROWSKI, J SUBHA TELE RN Unavailable Unavailable ZABOROWSKI, J SUBHA TELE RN Unavailable Unavailable ZABOROWSKI, J SUBHA TELE RN Unavailable Unavailable ZABOROWSKI, J SUBHA TELE RN Unavailable Unavailable ZABOROWSKI, J SUBHA TELE RN Unavailable Unavailable ZABOROWSKI, J SUBHA TELE RN Unavailable Unavailable ZABOROWSKI, J SUBHA TELE RN Unavailable Unavailable ZABOROWSKI, J SUBHA TELE RN Unavailable Unavailable ZABOROWSKI, J SUBHA TELE RN Unavailable Unavailable ZABOROWSKI, J SUBHA TELE RN Unavailable Unavailable ZABOROWSKI, J SUBHA TELE RN Unavailable Unavailable ZABOROWSKI, J SUBHA TELE RN Unavailable Unavailable ZABOROWSKI, J SUBHA TELE RN Unavailable Unavailable ZABOROWSKI, J SUBHA TELE RN Unavailable Unavailable ZABOROWSKI, J SUBHA TELE RN Unavailable Unavailable ZABOROWSKI, J SUBHA TELE RN Unavailable Unavailable ZABOROWSKI, J SUBHA TELE RN Unavailable Unavailable ZABOROWSKI, J SUBHA TELE RN Unavailable Unavailable ZABOROWSKI, J SUBHA TELE RN Unavailable Unavailable Al Mudamgha, A Ali Unavailable [...] Ward ULLOA Unavailable Unavailable Al Mudamgha, A aWrd ULLOA Unavailable Unavailable Al Mudamgha, A Ali [...] A Ali MD Unavailable Unavailable Georgette, Itzel TELE RN Unavailable Unavailable Georgette, Itzel TELE RN Unavailable Unavailable Georgette, Itzel TELE RN Unavailable Unavailable Georgette, Itzel TELE RN Unavailable Unavailable Georgette, Itzel TELE RN Unavailable Unavailable Georgette, Itzel TELE RN Unavailable Unavailable Georgette, Itzel TELE RN Unavailable Unavailable Georgette, Itzel TELE RN Unavailable Unavailable CHANLIECCO, C GIORGI MD Unavailable [...] is protected by Article 27-F of the [facility] Public Health law. If you continue you may have access to information: Regarding HIV / AIDS; Provided by facilities licensed or operated by the [facility] Office of Mental Health; or Provided by the [facility] Office for People With Developmental Disabilities. If such information is present, then the following [facility] mandated warning applies: This information has [...] law may result in a fine or mcfp sentence or both. A general authorization for the release of medical or other information is NOT sufficient authorization for further disc losure. Allergies and Adverse Reactions Type Description Substance Reaction Status Data Source(s ) Propensity to adverse reactions AVOCADO avocado allergen ic extract Anaphylaxis High Active [facility] High Propensity to adverse reactions ALMOND MEAL Vandiver Meal Anaphylax is High Active [facility] High Family History Family Member Name Family Member Gender Family Member Status Date o f Status Description Data Source(s) Unknown Male Problem [facility] ([facility] Encounters Encounter Providers Location Date Indications Data Source(s ) Outpatient Attender: OFELIA STEINBERG Main Office 03/25/2021 0 3:00:00 PM EDT [facility] ([facility]) Outpatient Attender: Ward Holt MD BF-BF 03/03/2021 12:00:0 0 AM EDT [facility] Emergency Attender: Rodney Bermudez MDConsultant: ELIZABETH UNKNOWN 02/23/2021 08:45:00 AM EDT - 02/23/2021 09:55:00 AM EDT [facility] ital Patient discharged. Outpatient Attender: Ward Holt MD BF-BF.[facility] 02/17/2021 07:55:5 7 AM EDT [facility] Outpatient Attender: Scooter Estrella MD Physical Therapy 01/18/2021 0 9:15:00 AM EDT [facility] ([facility]) Emergency Attender: Rodney Bermudez MD 01/17/2021 02:19:00 PM EDT - 01/17/2021 06:26:00 PM EDT [facility] Patient discharged. Emergency Attender: GIORGI MENJIVAR MD 01/12/2021 11:26:00 AM EDT - 01/12/2021 12:47:00 PM EDT [facility] Patient discharged. Outpatient BF-BF.[facility] 12/23/2020 12:00:00 AM EDT [facility] Outpatient Attender: Joy Peck PA-C BF-BF.[facility] 12:00:00 AM EDT - 12/10/2020 12:14:04 PM EDT [facility] Outpatient Attender: Ward Holt MD Admitter: Ward Holt MDReferrer: Itzel Palomino TELE RN ES1-SJ.[facility] 11/19/2020 10:35:00 AM EDT - 11/19/2020 04:00:00 PM EDT [facility] Patient discharged. Outpatient Attender: Ward Holt MDReferrer: Ward Cisse MD MOB-MOB.PAT 11/16/2020 08:33:23 AM EDT - 11/16/2020 09:11:20 AM EDT [facility] Outpatient Referrer: Ward Holt MD MOB-MOB.PAT 11/16/2020 1 2:00:00 AM EDT [facility] Outpatient [id number] 10/30/2020 08:14:38 AM EDT [facility] Outpatient [id number] 10/21/2020 03:27:49 PM EDT [facility] Outpatient [id number] 10/16/2020 03:52:09 PM EDT [facility] Outpatient Attender: Ward Holt MD BF-BF.[facility] 09/23/2020 07:57:5 3 AM EDT [facility] Outpatient [id number] 09/17/2020 03:27:44 PM EDT [facility] Outpatient [id number] 09/01/2020 01:54:08 PM EDT [facility] Outpatient Attender: OFELIA STEINBERG Main Office 08/11/2020 1 1:45:00 AM EST [facility] ([facility]) Outpatient Attender: OFELIA STEINBERG Main Office 08/03/2020 0 9:15:00 AM EST [facility] ([facility]) Outpatient Attender: Ward Holt MD BF-BF.[facility] 06/24/2020 12:00:0 0 AM EST [facility] Outpatient Attender: OFELIA STEINBERG Main Office 06/15/2020 0 8:15:00 AM EST [facility] ([facility]) Outpatient BF-BF.[facility] 04/30/2020 12:00:00 AM EST [facility] Outpatient Attender: SUBHA BLAND NP BF-BF 04/02/2020 12:00:0 0 AM EDT [facility] Outpatient Attender: Ward Holt MDAdmitter: Ward Cisse MD ES1-SJ.CV[facility] 03/20/2020 07:56:00 AM EDT - 03/20/2020 01:57:00 PM EDT [facility] Patient discharged. Outpatient Attender: Olimpia STEINBERG Main Office 03/16/2020 09:15:0 0 AM EDT [facility] ([facility]) Outpatient Referrer: Ward Holt MD MOB-MOB.PAT 09/2019 11:08:31 AM EDT - 03/15/2020 11:08:36 AM EDT [facility] Outpatient Referrer: Ward Holt MD 03/13/2020 09:52:0 7 AM EDT [facility] Outpatient Attender: Ward Holt MDReferrer: Ward Cisse MD MOB-MOB.PAT 03/13/2020 08:53:42 AM EDT - 03/13/2020 09:53:39 AM EDT [facility] BF-BF 03/09/2020 02:03:44 PM EDT [facility] Outpatient Referrer: Ward Holt MD 03/05/2020 08:13:2 2 AM EDT [facility] Immunizations Vaccine Date Status Description Data Source(s) 10/27/2020 12:00:00 AM EDT completed <td I D="[id number]">Covid-19 (Pfizer)</td><td>10/27/2020, 08/25/2020</td><td></td> [facility] COVID-19 VACCINE Pfizer 10/27/2020 12:00:00 AM EDT completed [facility] Vaccine Series Complete: YESThis Data wa s Submitted to [facility] Via [employer]. 08/25/2020 12:00:00 AM EDT completed <td I D="[id number]">Covid-19 (Pfizer)</td><td>10/27/2020, 08/25/2020</td><td></td> [facility] COVID-19 VACCINE Pfizer 08/25/2020 12:00:00 AM EDT completed [facility] Vaccine Series Complete: YESThis Data wa s Submitted to [facility] [employer]. Medications Medication Brand Name Start Date [...] m outh 2 (two) times a day [facility] 8 HR Acetaminophen 650 MG Extended Release Oral Tablet [Tyle nol] Tylenol 8 Hour 02/01/2021 12:00:00 AM EDT active [facility] ([facility]) 24 HR metoprolol succinate 200 MG Extended Release Ora l Tablet Metoprolol Succinate ER 01/21/2021 12:00:00 AM EDT ORAL completed [facility] ([facility]) rivaroxaban 20 MG Oral Tablet rivaroxaban (Xarelto) 20 MG TABS rivaroxaban (Xarelto) 20 MG TABS 12/23/2020 12:00:00 AM EDT 20 mg Oral active Take 1 tablet (20 mg total) by mouth daily [facility] normal saline flush 0.9 % injection 3 mL [id number] 11/19/2020 02:00:00 PM EDT 3 mL Intravenous active 3 mL , Intravenous, Every 8 hours (scheduled), First dose on Kendra 11/19/20 at 1400, PACU (only)
flush per protocol, D/C Main IV fluid if appropriate
[facility] Medication administered onsite normal saline flush 0.9 % injection 3 mL [id number] 11/19/2020 02:00:00 PM EDT 3 mL Intravenous active 3 mL , Intravenous, Every 8 hours (scheduled), First dose on Kendra 11/19/20 at 1400, Pre-op
Rapid push positive pressure flushing shall be performed with a 10 cc normal saline syringe to check the PATENCY of a PIV site prior to any infusion therapy initiation unless resistance is met.
[facility] Medication administered onsite normal saline flush 0.9 % injection 3 mL [id number] 11/19/2020 02:00:00 PM EDT 3 mL Intravenous active 3 mL , Intravenous, Every 8 hours (scheduled), First dose on Kendra 11/19/20 at 1400, Pre-op
Rapid push positive pressure flushing shall be performed with a 10 cc normal saline syringe to check the PATENCY of a PIV site prior to any infusion therapy initiation unless resistance is met.
[facility] Medication administered onsite 1 ML Ketorolac Tromethamine 30 MG/ML Car tridge ketorolac (TORADOL) injection 30 mg ketorolac (TORADOL) injection 30 mg 11/19/2020 01:46:43 PM EDT 30 mg Intravenous completed 30 mg, Intrav enous, Once as needed, severe pain (7-10), Starting on Kendra 11/19/20 at 1346, For 1 dose [facility] Medication administered onsite HYDROmorphone (DILAUDID) injection 0.5 mg [id number] 11/19/2020 01:20:51 PM EDT 0.5 mg Intravenous active 0.5 mg, Intravenous, Every 5 min PRN, severe pain (7-10), Starting on Kendra 11/19/20 at 1320, For 5 doses, PACU (only) [facility] Medication administered onsite ondansetron (ZOFRAN) injection 4 mg [id number] 11/19/2020 01:20:5 1 PM EDT 4 mg Intravenous completed 4 mg, In travenous, Once as needed, nausea, vomiting, Starting on Kendra 11/19/20 at 1320, For 1 dose, PACU (only)
If not given in last 4 hours
[facility] Medication administered onsite Albuterol 0.833 MG/ML / Ipratropium Brom maxine 0.167 MG/ML Inhalant Solution ipratropium-albuterol (DUO-NEB) 0.5-2.5 mg/mL nebulizer solution 3 mL ipratropium-albuterol (DUO-NEB) 0.5-2.5 mg/mL nebulizer solution 3 mL 11/19/2020 01:20:51 PM EDT 3 mL Inhalation active 3 mL, Inhalation, Once as needed, shortness of breath, Starting on Kendra 11/19/20 at 1320, For 1 dose, PACU (only) [facility] Medication administered onsite fentaNYL Citrate (PF) (SUBLIMAZE) injection 25 mcg [id number] 11/19/2020 01:20:51 PM EDT 25 ug Intravenous active 25 mcg, Intravenous, Every 5 min PRN, moderate pain (4 to 6), Starting on Kendra 11/19/20 at 1320, For 5 doses, PACU (only) [facility] Medication administered onsite 10 ML Atropine Sulfate [...] or 0.04 mg/kg. Max of 6 doses
[facility] Medication administered onsite protamine injection [id number] 11/19/2020 12:33:22 PM EDT active As needed, Starting on Kendra 11/19/20 at 1233, Intra-Proc edure [facility] Medication administered onsite 1 ML heparin sodium, porcine 1000 UNT/ML Injection hep mikael (porcine) injection heparin (porcine) injection 11/19/2020 12:01:54 PM EDT active As needed, Starting on Kendra 11/19/20 at 1201, Intra-Procedure [facility] Medication administered onsite lidocaine (PF) (XYLOCAINE-MPF) 1 % injection [id number] 03/2021 11:55:13 AM EDT active As needed, Start ing on Kendra 11/19/20 at 1155, Intra-Procedure [facility] Medication administered onsite 24 HR metoprolol succinate 100 MG Extended Release Ora l Tablet Metoprolol Succinate ER 08/28/2020 12:00:00 AM EDT ORAL completed [facility] ([facility]) Omeprazole 20 MG Delayed Release Oral Capsule Omeprazole 08/03/2020 12:00:00 AM EST ORAL active [facility] ([facility] Metoprolol Tartrate 50 MG Oral Tablet Metoprolol Tartrate 12:00:00 AM EST ORAL completed [facility] ([facility]) rivaroxaban 20 MG Oral Tablet [...] --discharge nurse to inform when to start. [facility] Insurance Providers Payer name Policy type / Coverage type Policy ID Covered alliance party ID Covered alliance party's relationship to lópez Policy López Plan Information [id number] [phone] [id number] Ashley [id number] Ashley [id number] Ashley [id number] INSURANCE COVID-19 COVID Ashley C OVID INSURANCE COVID-19 [id number] [facility] ([facility] [id number] Self [id number] [facility] HUMANA - O/P [id number] 18 [id number] [facility] - PHYSICIAN [id number] 18 [id number] ACTIVE DUTY [id number] SP [id number] [facility] ([facility]) [id number] Self [id number] [facility] ACTIVE DUTY [id number] SP [id number] Problems, Conditions, and Diagnoses Code Display Name Description Problem Type Effective Dates Data Source(s) 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 Diagnosis 02/23/2021 08:45:00 AM EDT [facility] Y20391 Nicotine dependence, cigarettes, uncompl icated Nicotine dependence, cigarettes, uncomplicated Diagnosis 02/23/2021 08:45:00 AM EDT [facility] R9431 Abnormal electrocardiogram [ECG] [EKG] A bnormal electrocardiogram [ECG] [EKG] Diagnosis 02/23/2021 08:45:00 AM T [facility] R002 Palpitations Palpitations Diagnosis 02/23/2021 08:45:00 A M EDT [facility] M5442 Lumbago with sciatica, left side Lumbago with sc iatica, left side Diagnosis 02/23/2021 08:45:00 AM EDT [facility] M545 Low back pain Low back pain Diagnosis 02/23/2021 08:45:00 AM EDT [facility] G12997 Unspecified place in unspeci fied non-institutional (private) residence as the place of occurrence of the external cause Unspecified place in unspecified non-institutional (private) residence as the place of occurrence of the external cause Diagnosis 01/17/2021 02:19:00 PM EDT [facility] [id number] Fall (on) (from) unspecified stairs and steps, initial encounter Fall (on) (from) unspecified stairs and steps, initial encounter Diagnosis 01/17/2021 02:19:00 PM EDT [facility] M5416 Radiculopathy, lumbar region Radiculopathy, lumbar reg ion Diagnosis 01/17/2021 02:19:00 PM EDT [facility] B78372 Personal history of nicotine dependence Personal history of nicotine dependence Diagnosis 01/12/2021 11:26:00 AM EDT [facility] G8929 Other chronic pain Other chronic pain Diagnosis 08/2020 11:26:00 AM EDT [facility] I48.91 Unspecified atrial fibrillation Unspecified atri al fibrillation Diagnosis 12/23/2020 03:35:03 PM EDT [facility] I48.0 Paroxysmal atrial fibrillation Paroxysmal atrial fibri llation Diagnosis 12/10/2020 11:07:56 AM EDT [facility] U07.1 COVID-19 COVID-19 Diagnosis 11/16/2020 12:00:00 AM ED T [facility] [id number] Lumbosacral radiculopathy Lumbosacral radiculopathy Pr oblem 02/01/2021 12:00:00 AM EDT [facility] ([facility]) [id number] Chronic low back pain Chronic low back pain Problem 02/01/2021 12:00:00 AM EDT [facility] ([facility]) I48.91 Atrial fibrillation Atrial fibrillation [id number] 09/29/2020 12:00:00 AM EDT [facility] R06.02 Dyspnea Dyspnea Problem 08/03/2020 12:00:00 AM ES T [facility] ([facility]) R55 Syncope and collapse Syncope and collapse Problem 06/15/2020 12:00:00 AM EST [facility] ([facility]) R07.2 Precordial pain Precordial pain Problem 06/15/2020 12:0 0:00 AM EST [facility] ([facility]) Surgeries/Procedures Procedure Description Date Indications Data Source(s) Implantable Loop Recorder System, Review And Report 04/15/2021 12:00:00 AM EDT [facility] ([facility]) ECG ROUTINE ECG W/LEAST 12 LDS W/I&R 03/25/2021 12:00: 00 AM EDT [facility] ([facility]) OFFICE OUTPATIENT VISIT 25 MINUTES 03/25/2021 12:00:00 AM EDT [facility] ([facility]) Implantable Loop Recorder System, Review And Report 03/12/2021 12:00:00 AM EDT [facility] ([facility]) Implantable Loop Recorder System, Review And Report 02/08/2021 12:00:00 AM EDT [facility] ([facility]) Needle electromyography, each extremity, with related paraspinal areas, when performed, done with nerve conduction, amplitude and latency/velocity study; complete, five or more muscles studied, innervated by three or more nerves or four or more spinal levels (list separately in addition to the code for primary procedure). 02/03/2021 12:00:00 AM EDT MEDEN T ([facility] ) Needle electromyography, each extremity, with related paraspinal areas, when performed, done with nerve conduction, amplitude and latency/velocity study; complete, five or more muscles studied, innervated by three or more nerves or four or more spinal levels (list separately in addition to the code for primary procedure). 02/03/2021 12:00:00 AM EDT MEDEN T ([facility] ) 54967 Nerve conduction studies 13 or more studies NEW 201202/03/2021 12:00:00 AM EDT [facility] ([facility] ) X-Ray Spine Lumbosacral Bending Only 2 Or 3 Views 01/18/2021 12:00:00 AM EDT [facility] ([facility] ) OFFICE OUTPATIENT NEW 45 MINUTES 01/18/2021 12:00:00 A M EDT [facility] ([facility] ) Implantable Loop Recorder System, Review And Report 01/06/2021 12:00:00 AM EDT [facility] ([facility] Implantable Loop Recorder System, Review And Report 12/03/2020 12:00:00 AM EDT [facility] ([facility]) EP STUDY <td>EP STUDY</td><td>Routine </td><td>11/19/2020 12:32 PM EDT</td><td> Atrial fibrillation, unspecified type</td><td></td> 11/19/2020 12:32:27 PM EDT Atrial fibrillation, unspecified type [facility] Atrial fibrillation, unspecified type ECG ROUTINE ECG W/LEAST 12 LDS TRCG ONLY W/O I&R <td>E CG 12- LEAD</td><td>Routine</td><td>11/16/2020 9:11 AM EDT</td><td> Atrial fibrillation, unspecified type</td><td></td> 11/16/2020 09:11:02 AM EDT Atrial fibrillation, unspecified type [facility] Atrial fibrillation, unspecified type BLOOD COUNT COMPLETE AUTOMATED <td>CBC</td><td>Routine </td><td>11/16/2020 9:10 AM EDT</td><td> Atrial fibrillation, unspecified type</td><td> </td> 11/16/2020 09:10:00 AM EDT Atrial fibrillation, unspecified type [facility] Atrial fibrillation, unspecified type BLOOD TYPING ABO <td>TYPE AND SCREEN</td><td> Routine</td><td>11/16/2020 9:10 AM EDT</td><td> Atrial fibrillation, unspecified type</td><td> </td> 11/16/2020 09:10:00 AM EDT Atrial fibrillation, unspecified type [facility] Atrial fibrillation, unspecified type BASIC METABOLIC PANEL CALCIUM TOTAL <td>BASIC METABOLI C PANEL</td><td>Routine</td><td>11/16/2020 9:10 AM EDT</td><td> Atrial fibrillation, unspecified type</td><td> </td> 11/16/2020 09:10:00 AM EDT Atrial fibrillation, unspecified type [facility] Atrial fibrillation, unspecified type Implantable Loop Recorder System, Review And Report 10/27/2020 12:00:00 AM EDT [facility] ([facility]) Implantable Loop Recorder System, Review And Report 09/24/2020 12:00:00 AM EDT [facility] ([facility]) OFFICE OUTPATIENT [...] Medical [facility]) Results ID Date Data Source [id number] 03/03/2021 12:34:28 PM EDT [facility] INFORMATIONPatient MRN Name Date of Age Gend*PT [id number] Gallito Hinojosa 1995 26 years M ---PT Location Admission Date/Time Visit ID Attending Provider --- --- --- --- EPI ID CSN Admitting Provider [id number] ---[facility] [id number] [facility], [address] (First Floor)[place], [place] [address]Bk.: Fax: Latient: Gallito Camargo : 1995Date: 03/03/21CARDIOLOGY TELEMEDICINE VISITPatient was identified by name and date of .Verbal consent was obtained from the patient for this telemedicine visit.Patient is aware of the risks, limitations, and benefits of a telemedicinevisit.This telemedicine assessment was conducted remotely with the assistance ofCartoDB communication technology. Telephone Only Codes 64464: 21-30 minutesof medical discussion: Telephone Only .Subjective:Gallito [...] benefitsFollow Up 6 monthsSignature: Ward Durán MD, [facility], [facility]ENTERCardiac Electrophysiology and Arrhythmia ServiceDate: March 03, 2021Time: 12:29 PMThis document or parts of this document, were dictated using [employer]. A reasonable attempt at proofreading has been made to minimize errors.Please call with any questions or corrections. Name Value Range Interpretation Code Description Data Sera rce(s) Supporting Document(s) ID Date Data Source [id number] 02/23/2021 08:07:00 [place] [address] RESPIRATORY CARE REPORT ==== ---------NAME------- NUMBER SEX AGE ADMIT DISC. XRAY# F/C TYPETALATANBAPTMELANI GALLITO Orta [id number] M 26 02/23/21 02/23/21 [id number] [id number] E/R DATE OF : 1995 M/R# [id number] #: [phone] [place]-04 LOCATION: EMERGENCY DEPT EKG 96121 COMP LETE:02/23/21 15:13 [place] [id number] PHYSICIAN: ANDREE Gallagher Name Value Range Interpretation Code Description Data Sera rce(s) Supporting Document(s) ID Date Data Source [id number] 02/23/2021 08:45:00 AM EDT [facility] 1 OrderSheet [facility] Emergency Department [address] [place] [address] Phone #: ext- [phone] 02/23/2021 08:44 Patient: GALLITO HERNANDEZ Sex: M : 1995 Age: 26yWEIGHT:73.4 kg (S) HEIGHT:67 inches (S) BMI:25.4ALLERGIES: Vandiver (Diagnostic), Avocado (Diagnostic)CHIEF COMPLAINT: back pain, chronic back painDIAGNOSIS: Lumbar radiculopathy, PalpitationsLAB ORDERSOrder Description Priority Entered Acknowledged InitialedDIAGNOSTIC STUDY ORDERSOrder Description Priority Entered Acknowledged InitialedMEDICATION/IV/DRIP/FLUID ORDERSOrder Description Priority Entered Acknowledged InitialedLidoderm Patch 09:23 02/23/2021 09:42 TerryTopical (Patch 5 %) Rodney Bermudez RN1 Patch (NOW x1,On for 12 hours, offfor 12 hours.)Motrin 600 mg PO 09:23 02/23/2021 09:42 TerryX1 dose: 600 mg Rodney Bermudez RN(NOW x1)GENERAL ORDERSOrder Description Priority Entered Acknowledged InitialedEKG 09:28 02/23/2021 09:33 Rodney Hou RN[Electronically signed by Rodney Bermudez (11:16 02/23/2021)][Electronically signed by Hema Sampson RN (12:00 02/23/2021)][Electronically locked by Hema Sampson RN (12:00 02/23/2021)] Name Value Range Interpretation Code Description Data Sera rce(s) Supporting Document(s) ID Date Data Source [id number] 02/23/2021 08:45:00 AM EDT [facility] 1 Medication Reconciliation Report [facility] Emergency Department [address] [place] [address] Phone #: ext- [phone] 02/23/2021 08:44 Patient: GALLITO HERNANDEZ Sex: M : 1995 Age: 26yWeight: 73.4 kgHeight/Length: 67 in.BMI: 25.4ALLERGIES: Vandiver (Diagnostic), Avocado (Diagnostic)The patient's Home Medications are [...] rce(s) Supporting Document(s) ID Date Data Source [id number] 02/23/2021 08:45:00 AM EDT [facility] 1 Medication Administration Record [facility] Emergency Department [address] [place] [address] Phone #: ext- [phone] 02/23/2021 08:44 Patient: GALLITO HERNANDEZ Sex: M : 1995 Age: 26yWeight: 73.4 kgHeight/Length: 67 inBMI: 25.4ALLERGIES: Vandiver (Diagnostic), Avocado (Diagnostic) Date/Time Medication Administered Medication OrderedGiven LIDODERM PATCH (LIDOCAINE) Lidoderm Patch Topical (Patch 509:42 02/23/2021 Dose: 1 patch Ointment Transdermal %) 1 Patch (NOW x1, On for 12Terry LILI Sampson hours, off for 12 hours.)Given MOTRIN [PO] (IBUPROFEN) Motrin 600 mg PO X1 dose: 78990:42 02/23/2021 Dose: 600 mg Tablets PO mg (NOW x1)Hema Sampson RN Name Value Range Interpretation Code Description Data Sera rce(s) Supporting Document(s) ID Date Data Source [id number] 02/23/2021 08:45:00 AM EDT [facility] 1 General Instructions [facility] Emergency Department [address] [place] [address] Phone #: ext- [phone] 02/23/2021 08:44 Patient: [...] verbalized by patient.Follow- up with: [facility], , , [address] [place] [address], , [place], [address] Follow up in three days if not well. Call for an appointment. Reason for referral: evaluation. ADDITIONAL INFORMATIONSciatica 2 General Instructions [facility] Emergency Department [address] [place] [address] Phone #: ext- [phone] 02/23/2021 08:44 Patient: [...] for yourself at home: 3 General Instructions [facility] Emergency Department [address] [place] [address] Phone #: ext- [phone] 02/23/2021 08:44 Patient: GALLITO HERNANDEZ Sex: M : 1995 Age: 26y As [...] or swelling over your back or spine [employer]. [address] [place] [address]. All rights reserved. This information is not intended as asubstitute for professional medical care. Always follow your healthcare professional's instructions. 4 General Instructions [facility] Emergency Department [address] [place] [address] Phone #: ext- [phone] 02/23/2021 08:44 Patient: [...] muscle (cardiomyopathy) Coronary artery disease High blood ssjeajdyZnu-eonul-uhosbys causes: Certain medicines such as asthma inhalers and decongestants Some herbal supplements, energy drinks and pills, and weight loss pills 5 General Instructions [facility] Emergency Department [address] [place] [address] Phone #: ext- [phone] 02/23/2021 08:44 Patient: [...] Tell your doctor about any prescription or lvoj-vtq-kvuuhfb or herbal medicines you take.Follow-up care Follow [...] to seek medical advice 6 General Instructions [facility] Emergency Department [address] [place] [address] Phone #: ext- [phone] 02/23/2021 08:44 Patient: GALLITO HERNANDEZ Sex: M : 1995 Age: 26yCall your healthcare provider right away if you have palpitations that last longer than normal, or aredifferent from your past palpitations. [id number] [employer]. [address] [place] [address], [place] [address]. All rights reserved. This information is not intended as asubstitute for professional medical care. Always follow your healthcare professional's instructions. You have been given the following additional information: Sciatica Palpitations(Electronically signed by Rodney Bermudez 02/23/2021 11:16) Name Value Range Interpretation Code Description Data Sera rce(s) Supporting Document(s) ID Date Data Source [id number] 02/23/2021 08:45:00 AM EDT [facility] 1 Clinical Report - Nurses [facility] Emergency Department [address] [place] [address] Phone #: ext- [phone] 02/23/2021 08:44 Patient: GALLITO HERNANDEZ Sex: M [...] tingling, trouble walking orfever. 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 SEPSIS SCREEN NEGATIVE. [...] Oral (Tablet 20 mg), daily. --09:03 02/23/21 eHma Sampson RN Gabapentin Oral 300 mg, daily. --09:02/23/21 Hema Sampsno RN Cymbalta Oral (Capsule Delayed Release Particles 20 mg), daily. --09:04 02/23/21 Hema Sampson RN.AllergiesAlmond (Diagnostic).Avocado (Diagnostic). --09:02/23/21 Hema Sampson RN.Ruqsuro51:02/23/21.PAST MEDICAL HX: Heart disease.SOCIAL HX: Smoker- current status unknown (1/2 ppd). No alcohol use or drug use. He was offeredHIV testing but declined and hepatitis C testing but declined. He has not traveled outside the [place]Infectious disease exposure: No infectious disease exposure. 2 Clinical Report - Nurses [facility] Emergency Department [address] [place] [address] Phone #: ext- [phone] 02/23/2021 08:44 [id number] Sex: [facility] : 1995 Age: 26y SELF [...] patient. To room. --09:02/23/21 Hema Sampson RN.PHYSICAL VYHKNEAKBJ71:02/23/21. Ambulatory to room.GENERAL / NEURO / PSYCH: [...] Sampson RN 3 Clinical Report - Nurses [facility] Emergency Department [address] [place] [address] Phone #: ext- [phone] 02/23/2021 08:44 Patient: [...] F. Pain level now 02/19. --09:45 02/23/21 [facility] 09:55 02/23/21. Departure time: :02/23/2021. Condition at departure: unchanged. No learning barriers present. Discharge instructions provided and reviewed with the patient. Reviewed medication(s) (no changes). Reviewed rest and ice instructions. Reviewed referrals. Provided to follow-up provider. Patient verbalized understanding. Written instructions provided in Syrian. The patient was discharged by the physician. He was discharged home. He left ambulatory and via private vehicle. Patient driving. --09:55 02/23/21 Hema Sampson RN.Locked/Released at 02/23/2021 12:00 by Hema Sampson RN Name Value Range Interpretation Code Description Data Sera rce(s) Supporting Document(s) ID Date Data Source [id number] 02/23/2021 08:45:00 AM EDT [facility] 1 Clinical Report - Physicians/Mid Levels [facility] Emergency Department [address] [place] [address] Phone #: ext- [phone] 02/23/2021 08:44 Patient: [...] Xarelto Oral (Tablet 20 mg), daily. Allergies: Vandiver (Diagnostic). 2 Clinical Report - Physicians/Mid Levels [facility] Emergency Department [address] [place] [address] Phone #: ext- [phone] 02/23/2021 08:44 Patient: GALLITO HERNANDEZ Sex: M : 1995 Age: 26y Avocado (Diagnostic).SOCIAL HISTORYCurrent every day smoker.FAMILY HISTORYNo significant family medical history.ADDITIONAL NOTESThe nursing notes have been reviewed.PHYSICAL EXAMVital Signs: 02/23/2021 09:01 BP: 127/88. MAP: 101. HR: 87. RR: 16. O2 saturation: 100% on room air.Temp: 98 F. Pain level now: 10.Appearance: Alert. No acute distress.Eyes: Pupils equal, round [...] stable. 3 Clinical Report - Physicians/Mid Levels [facility] Emergency Department [address] [place] [address] Phone #: ext- [phone] 02/23/2021 08:44 Patient: GALLITO HERNANDEZ Sex: M [...] verbalized by patient. Follow-up with: [facility], , , [id number] [place] [address], , [place], [address] Follow up in three days if not well. Call for an appointment. Reason for referral: evaluation.(Electronically signed by Rodney Bermudez 02/23/2021 11:16) Name Value Range Interpretation Code Description Data Sera rce(s) Supporting Document(s) ID Date Data Source [id number] 02/12/2021 12:00:00 AM EDT [facility] Name Value Range Interpretation Code Description Data Sera rce(s) Supporting Document(s) PCR NEGATIVE [facility] This lab was ordered by [facility] are and reported by [facility]. ID Date Data Source [id number] 01/17/2021 06:32:00 PM EDT [facility] [address] [place] [address] PHONE: [phone] FAX: [phone] Name .................. : MARY Orta Acct Number.................. : [id number] ROOM. ................. : VT-19 MR Number ................... : [id number] Stay type ............. : E/R Discharge Date......... ... : Admit Date ......... : 01/17/21 Admit Phys .................... : ANDREE RODNEY Aileen Date of ....... : 1995 Family Phys ................... : UNKNOWN CO Phone .................. : [phone] Age ................................ : 26 Film# .................. .:[id number] Sex ................................. : M Unsigned transcriptions are preliminary reports and do not represent a medical or legal document CT LUMBAR SP W/O CONT [id number] COMPLETE:01/17/21 16:54 21951 Reason(s): fell down stairs, acute on chronic [...] 01/17/21 18:32, JWS Page 1 of 2 [facility] [address] [place] [address] [place] [address] PHONE: [phone] FAX: [phone] Name .................. : MARY MARC H Acct Number.................. : [id number] ROOM. ................. : [address] Number ................... : [id number] Stay type ............. : E/R Discharge Date......... ... : Admit Date ......... : 01/17/21 Admit Phys .................... : ANDREE Gallagher Date of ....... : 1995 Family Phys ............ ....... : UNKNOWN CO Phone .................. : [phone] Age ................................ : 26 Film# .................. .:[id number] Sex ................................. : M Unsigned transcriptions are preliminary reports and do not represent a medical or legal document CT LUMBAR SP W/O CONT 13529 COMPLETE:01/17/21 16:54 30820 Reason(s): fell down stairs, acute on chronic LBP Transcribe Initials: TAWANNA Transcribe Date: 01/17/21 17:50, Dictation Date: Copy for: BURKE Crandall via fax Copy for: EMERGENCY DEPT via modem Copy for: 710 MED REC DISCHARGED Page 2 of 2 Name Value Range Interpretation Code Description Data Sera rce(s) Supporting Document(s) ID Date Data Source [id number] 01/17/2021 02:19:00 PM EDT [facility] 1 OrderSheet [facility] Emergency Department [address] [place] [address] Phone #: ext- [phone] 01/17/2021 13:55 Patient: GALLITO HERNANDEZ Sex: M : 1995 Age: 26yWEIGHT:73.4 kg (S) HEIGHT:67 inches (S) BMI:25.4ALLERGIES: Vandiver (Diagnostic), Avocado (Diagnostic)CHIEF COMPLAINT: fall, -3-, down stairs:DIAGNOSIS: Lumbar radiculopathy, FallLAB ORDERSOrder Description Priority Entered Acknowledged InitialedDIAGNOSTIC STUDY ORDERSOrder Description Priority Entered Acknowledged InitialedCT LUMBAR SP STAT 16:54 01/17/2021 16:59 TerryW/O CONT Derik STEINBERG; Camilla RN(Oxygen?(No))(IV?(No)) Reason for Study: fell down stairs, acute on chronic LBPMEDICATION/IV/DRIP/FLUID ORDERS Order Description Priority Entered Acknowledged InitialedMorphine IM 4 mg 16:54 01/17/2021 17:04 Hema(NOW x1, HIGH Derik STEINBERG; Camilla RNALERTMEDICATION)Zofran ODT PO 4 16:54 01/17/2021 17:05 Terrymg (NOW x1) Derik STEINBERG; Camilla PEARSONGENERAL ORDERSOrder Description Priority Entered Acknowledged Initialed[Electronically signed by Balbina Ramirez RN (18:26 01/17/2021)][Electronically signed by Derik Olson (18:46 01/17/2021)][Electronically locked by Balbina Ramirez RN (18:01/17/2021)] Name Value Range Interpretation Code Description Data Sera rce(s) Supporting Document(s) ID Date Data Source [id number] 01/17/2021 02:19:00 PM EDT [facility] 1 Medication Reconciliation Report [facility] Emergency Department [address] [place] [address] Phone #: ext- [phone] 01/17/2021 13:55 Patient: GALLITO HERNANDEZ Sex: M : 1995 Age: 26yWeight: 73.4 kgHeight/Length: 67 in.BMI: 25.4ALLERGIES: Vandiver (Diagnostic), Avocado (Diagnostic)The patient's Home Medications are [...] Dispense6 tablet. Refills: 0. Substitution permitted.Pharmacy - [facility] [address] ; [place] [address]. . -- MARYAN Velasco Name Value Range Interpretation Code Description Data [facility](s) Supporting Document(s) ID Date Data Source [id number] 01/17/2021 02:19:00 PM EDT [place] [address] Medication Administration Record [facility] Emergency Department [address] [place] [address] Phone #: ext [phone] 01/17/2021 13:55 Patient: GALLITO HERNANDEZ Sex: M : 1995 Age: 26yWeight: 73.4 kgHeight/Length: 67 inBMI: 25.4ALLERGIES: Vandiver (Diagnostic), Avocado (Diagnostic) Date/Time Medication Administered Medication OrderedGiven MORPHINE [IM] Morphine IM 4 mg (NOW x1, HIGH17:04 01/17/2021 Dose: 4 mg IM ALERT MEDICATION)Hema Sampson RNGiven ZOFRAN ODT [PO] (ONDANSETRON Zofran ODT PO 4 mg (NOW x1)17:05 01/17/2021 HCL)Hema Sampson RN Dose: 4 mg Oral Disintegrating Tablets PO Name Value Range Interpretation Code Description Data [facility](s) Supporting Document(s) ID Date Data Source [id number] 01/17/2021 02:19:00 PM EDT [facility] 1 General Instructions [facility] Emergency Department [address] [place] [address] Phone #: ext [phone] 01/17/2021 13:55 Patient: GALLITO HERNANDEZ Sex: M [...] Dispense6 tablet. Refills: 0. Substitution permitted.Pharmacy - [facility] [phone] ; [place] [address]. .Understanding of the discharge instructions verbalize d by patient. Expected course of injury, dischargeinstructions, activity level, prescriptions x1, follow-up appointment and risks and benefits of treatmentreviewed with patient and understanding verbalized. Agrees to plan of care.Follow-up with: [facility], , , [address] [place] [address], , [place], [address] Follow up in one day even if well. Call for the next available appointment. Reason for referral: evaluationand recommend MRI LS spine and referral to ortho spine . Summary of care provided to patient via paper. ADDITIONAL INFORMATION 2 General Instructions [facility] Emergency Department [address] [place] [address] Phone #: ext- [phone] 01/17/2021 13:55 Patient: GALLITO HERNANDEZ Sex: M [...] howsevere your symptoms are. 3 General Instructions [facility] Emergency Department [address] [place] [address] Phone #: ext- [phone] 01/17/2021 13:55 --- Patient: GALLITO HERNANDEZ Sex: [...] your back or spine 4 General Instructions [facility] Emergency Department [address] [place] [address] Phone #: ext- [phone] 01/17/2021 13:55 Patient: GALLITO HERNANDEZ Sex: M : 1995 Age: 26y [id number] [employer]. [address] [place] [address]. All rights reserved. This information is not [...] provider before using these 5 General Instructions [facility] Emergency Department [address] [place] [address] Phone #: ext- [phone] 01/17/2021 13:55 Patient: [...] the reading, especially if it affects treatment.Call [phone] if any of these happen: 6 General Instructions [facility] Emergency Department [address] [place] [address] Phone #: ext- [phone] 01/17/2021 13:55 Patient: [...] in vomit, stools (black or red color) [phone] [employer]. [address] [place] [address]. All rights reserved. This information is not [...] in poorly lit areas. 7 General Instructions [facility] Emergency Department [address] [place] [address] Phone #: ext- [phone] 01/17/2021 13:55 Patient: [...] sidewalks. If your balance is poor, con sales designer using a cane or walker. If your [...] could make you more likely to fall. [id number] [employer]. [address] [place] [address]. All rights reserved. This information is not intended as asubstitute for professional medical care. Always follow your healthcare professional's instructions. You have been given the following additional information: Sciatica Mechanical Fall Fall Prevention 8 General Instructions [facility] Emergency Department [address] [place] [address] Phone #: ext- [phone] 01/17/2021 13:55 Patient: GALLITO HERNANDEZ Sex: M : 1995 Age: 26yNo strenuous activity until better.(Electronically signed by MARYAN Velasco 01/17/2021 18:46) Name Value Range Interpretation Code Description Data Sera rce(s) Supporting Document(s) ID Date Data Source [id number] 01/17/2021 02:19:00 PM EDT [facility] 1 Clinical Report - Nurses [facility] Emergency Department [address] [place] [address] Phone #: ext- [phone] 01/17/2021 13:55 Patient: [...] bladder.). 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 Temp: 98.6 F. Pain level now 03/21.--14:15 01/17/21 Belgica Joaquin R.N.Weight: 73.4 kg stated. Height/Length: 67 inches Per Patient. BMI: 25.4. --14:12 01/17/21 Belgica Joaquin R.N.MedicationsXarelto Oral (Tablet 20 mg), daily. --14:14 01/17/21 Belgica Joaquin R.N. Metoprolol Succinate ER Oral (Tablet Extended Release 24 Hour 100 mg), daily. --14:14 01/17/21Belgica Joaquin R.N.AllergiesAvocado (Diagnostic). --14:13 01/17/21 Belgica Joaquin R.N.Vandiver (Diagnostic). --14:14 01/17/21 Belgica Joaquin R.N.PROBLEMS:Depression. --14:15 01/17/21 Belgica Joaquin R.N.Back Pain.Atrial Fibrillation. --16:48 01/17/21 MARYAN Velasco 2 Clinical Report - Nurses [facility] Emergency Department [address] [place] [address] Phone #: ext- [phone] 01/17/2021 13:55 Patient: [...] in pain. 3 Clinical Report - Nurses [facility] Emergency Department [address] [place] [address] Phone #: ext- [phone] 01/17/2021 13:55 Patient: [...] on. Patient ready for evaluation- chart flagged. --16:27 01/17/21Hema Sampson RN 17:04 01/17/2021 Morphine IM 4 mg given. Given in the left deltoid. Allergies verified and confirmed 5 rights. Information reviewed with patient including sedative warning. --17:04 01/17/21 Hema Sampson RN 17:01/17/2021 Zofran ODT (Ondansetron HCl) PO Oral Disintegrating Tablets 4 mg given. Allergies verified and confirmed 5 rights. Information reviewed with patient. --17:05 01/17/21 Hema Sampson RN 17:11 01/17/21. BP: 126/76. HR: 83. RR: 16. O2 saturation: 99%. --17:11 01/17/21 [place] front load trash truck driver, [facility], ER Tech1 Patient transported to [place] by wheelchair with mask and survey field technician. (1720). --17:31 01/17/21 Hema Sampson RN Patient returned from CT by wheelchair with mask and survey field technician. (1731). --17:33 01/17/21 Hema Sampson RN 18:16 01/17/21. BP: 114/83. HR: 84. RR: 16. O2 saturation: 100%. --18:16 01/17/21 [place] front load trash truck driver, Cecilia, ER Tech1.DISPOSITION / DISCHARGE 17:49 01/17/21. Departure time: 17:49 01/17/2021. Transferred. Provided to EMS ([facility] Transported via ambulance by family resource management specialist. Report was given to a nurse via [...] 100%. Temp: 98.5 F. Pain level now 5/10. 4 Clinical Report - Nurses [facility] Emergency Department [address] [place] [address] Phone #: ext- [phone] 01/17/2021 13:55 Patient: [id number] Sex[facility] : 1995 Age: 26y --18:18 01/17/21 [facility][note 3], [place] [address] Departure time: 18:24 01/17/2021. --18:24 01/17/21 Balbina Ramirez RN Condition at departure: stable. No learning barriers present. Discharge instructions provided and reviewed with the patient. Reviewed medication(s) side effects, precautions, dosing and course information. Prescription(s) sent electronically to pharmacy. Reviewed referral to a primary care physician. Patient verbalized understanding. Written instructions provided in Syrian. The patient was discharged by the physician news production assistant. He was discharged home and accompanied by spouse. He left ambulatory and via private vehicle. Spouse driving. --18:26 01/17/21 Balbina Ramirez RN.Locked/Released at 01/17/2021 18:26 by Balbina Ramirez RN Name Value Range Interpretation Code Description Data Sera rce(s) Supporting Document(s) ID Date Data Source [id number] 01/17/2021 02:19:00 PM EDT [facility] 1 Clinical Report - Physicians/Mid Levels [facility] Emergency Department [address] [place] [address] Phone #: ext- [phone] 01/17/2021 13:55 Patient: [...] Loop recorder. Medications: 2 Clinical Report - Physicians[facility] Emergency Department [address] [place] [address] Phone #: ext- [phone] 01/17/2021 13:55 Patient: GALLITO HERNANDEZ Sex: M : 1995 Age: 26y Metoprolol Succinate ER Oral (Tablet Extended Release 24 Hour 100 mg), daily. Xarelto Oral (Tablet 20 mg), daily. Allergies: Vandiver (Diagnostic). Avocado (Diagnostic).SOCIAL HISTORYSmoker- current status unknown. [...] is 3 Clinical Report - Physicians/Mid Levels [facility] Emergency Department [address] [place] [address] Phone #: [phone] ext- [phone] 01/17/2021 13:55 Patient: GALLITO HERNANDEZ Sex: M [...] tablet. Refills: 0. Substitution permitted. Pharmacy - [facility] [address] ; [place] [address]. . Understanding of the discharge instructions verbalized by patient. Expected course of injury, discharge instructions, activity level, prescriptions x1, follow-up appointment and risks and benefits of treatment reviewed with patient and understanding verbalized. Agrees to plan of care. Follow-up with: [facility], , , [address] [address] [facility], , [place], [address] Follow up in one day even if well. Call for the next available appointment. Reason for referral: evaluation and recommend MRI LS spine and referral to ortho spine . Summary of care provided to patient via paper. 4 Clinical Report - Physicians/Mid Levels [facility] Emergency Department [address] [place] [address] Phone #: ext- [phone] 01/17/2021 13:55 Patient: GALLITO HERNANDEZ Sex: M : 1995 Age: 26y(Electronically signed by MARYAN Velasco 01/17/2021 18:46) Name Value Range Interpretation Code Description Data Sera rce(s) Supporting Document(s) ID Date Data Source [id number] 01/12/2021 11:26:00 AM EDT [facility] 1 OrderSheet [facility] Emergency Department [address] [place] [address] Phone #: hav- [phone] 01/12/2021 11:19 Patient: GALLITO MONTGOMERY Sex: M : 1995 Age: 26yWEIGHT:73.4 kg HEIGHT:67 inches BMI:25.4ALLERGIES: Muriel Lewis COMPLAINT: back pain, chronic back painDIAGNOSIS: Lumbar radiculopathyLAB ORDERSOrder Description Priority Entered Acknowledged InitialedDIAGNOSTIC STUDY ORDERSOrder Description Priority Entered Acknowledged InitialedSpine Lumbar STAT 11:40 01/12/2021 12:07 Efren Gonsales Victoria R.N.(Oxygen?(No)) ; Reason for Study: Lower Back PainMEDICATION/IV/DRIP/FLUID ORDERSOrder Description Priority Entered Acknowledged InitialedSOLU- Medrol IM 11:40 01/12/2021 Cancelled: Physician Order 12:07 Dru,125 mg Giorgi Menjivar R.N. ;Flexeril PO 10 mg 11:40 01/12/2021 12:07 Shanda Gonsales(NOW) Giorgi Menjivar R.N. ;Percocet PO 1 tab 11:48 01/12/2021 12:07 Shanda Gonsales(HIGH ALERT Giorgi Menjivar R.N.MEDICATION) ;Dexamethasone IM 12:08 01/12/2021 12:08 Shanda Gonsales10 mg (NOW) Shanda Gonsales R.N.; R.N. Verbal order per; Giorgi MenjivarGENERAL ORDERSOrder Description Priority Entered Acknowledged Initialed[Electronically signed by Belgica Joaquin R.N. (12:47 01/12/2021)][Electronically signed by Giorgi Menjivar (03:27 0809/2020)][Electronically locked by Belgica Joaquin R.N. (12:47 01/12/2021)] Name Value Range Interpretation Code Description Data Sera rce(s) Supporting Document(s) ID Date Data Source [id number] 01/12/2021 11:26:00 AM EDT [facility] 1 Medication Reconciliation Report [facility] Emergency Department [address] [place] [address] Phone #: ext- [phone] 01/12/2021 11:19 Patient: GALLITO MONTGOMERY You Sex: M : 1995 Age: 26yWeight: 73.4 kgHeight/Length: 67 in.BMI: 25.4ALLERGIES: Jaki LewisThe patient's Home Medications are listed below:STOP TAKING THE FOLLOWING MEDICATIONS: Alieve about 199901/11/2021ONTINUE TAKING THE FOLLOWING MEDICATIONS: Xarelto OralThe source(s) of the original Home Medication information:patientThe following Medications were given to the patient in the Emergency Department:Flexeril [PO] PO 10 mg, administered: 12:1Percocet [PO] PO 1 tab, administered: :1Dexamethasone [IM] IM 10 mg, administered: :01/12/2021The following Medications were prescribed to the patient:cyclobenzaprine 10 mg tablet Take 1 tablet three times a day for 10 days -- Dispense 30 tablet. Refills:0. Substitution permitted.Pharmacy - [facility] [employer] [id number] [facility] ; [place] [address]. .prednisone 10 mg tablet Take 4 tablet once a day for 10 days -- x 2 days then 3 tabs daily x 2 daysthen 2 tabs daily x 2 days then 1 tab daily x 2 days. Dispense 30 tablet. Refills: 0. Substitution permitted.Pharmacy - [facility] [employer] [address] [facility] ; [place] [address]. . 2 Medication Reconciliation Report [facility] Emergency Department [address] [place] [address] Phone #: ext- [phone] 01/12/2021 11:19 Patient: GALLITO MONTGOMERY Sex: M : 1995 Age: 26yPercocet 5 mg-325 mg tablet Take 1 tablet four times a day for 3 days -- as needed for pain. Qnfyopag68 tablet. Refills: 0. Substitution permitted.Pharmacy - [facility] [address] ; [place] [address]. . -- Giorgi Menjivar Name Value Range Interpretation Code Description Data Sera rce(s) Supporting Document(s) ID Date Data Source [id number] 01/12/2021 11:26:00 AM EDT [facility] 1 Medication Administration Record [facility] Emergency Department [address] [place] [address] Phone #: ext [phone] 01/12/2021 11:19 Patient: GALLITO MONTGOMERY Sex: [...] rce(s) Supporting Document(s) ID Date Data Source [id number] 01/12/2021 11:26:00 AM EDT [facility] 1 General Instructions [facility] Emergency Department [address] [place] [address] Phone #: ext- [phone] 01/12/2021 11:19 Patient: [...] Dispense 30 tablet. Refills:0. Substitution permitted.[place] - [facility] [address] [facility] ; [place] [id number]. .prednisone 10 mg tablet Take 4 tablet once a day for 10 days -- x 2 days then 3 tabs daily x 2 daysthen 2 tabs daily x 2 days then 1 tab daily x 2 days. Dispense 30 tablet. Refills: 0. Substitution permitted.Pharmacy - [facility] [employer] [facility] - [address] [facility] ; [place] [address]. .Percocet 5 mg-325 mg tablet Take 1 tablet four times a day for 3 days -- as needed for pain. Azmlkdtk54 tablet. Refills: 0. Substitution permitted.Pharmacy - [facility] [address] ; [place] [address]. .Follow-up: Follow up with your healthcare provider in three days if not better. Reason for referral: evaluation.Summary of care provided to patient via paper. Screening today revealed the patient's blood pressure indra in the hypertensive stage 2 range. The patient should follow up with a primary care provider for bloodpressure management. ADDITIONAL INFORMATION 2 General Instructions [facility] Emergency Department [address] [place] [address] Phone #: ext- [phone] 01/12/2021 11:19 Patient: GALLITO MONTGOMERY Violeta RN: [id number] Sex: M : 1995 Age: 26ySciaticaSciatica is [...] howsevere your symptoms are. 3 General Instructions [facility] Emergency Department [address] [place] [address] Phone #: ext- [phone] 01/12/2021 11:19 Patient: [...] your back or spine 4 General Instructions [facility] Emergency Department [address] [place] [address] Phone #: ext- [phone] 01/12/2021 11:19 Patient: GALLITO MONTGOMERY Sex: M : 1995 Age: 26y [phone] [employer]. [address] [place] [address]. All rights reserved. This information is not intended as asubstitute for professional medical care. Always follow your healthcare professional's instructions. You have been given the following additional information: Sciatica Do not work for one day.(Electronically signed by Giorgi Menjivar 01/13/2021 03:27) Name Value Range Interpretation Code Description Data Sera rce(s) Supporting Document(s) ID Date Data Source [id number] 01/12/2021 11:26:00 AM EDT [facility] 1 Clinical Report - Nurses [facility] Emergency Department [address] [place] [address] Phone #: ext- [phone] 01/12/2021 11:19 Patient: GALLITO MONTGOMERY Sex: M : 1995 Age: 26yTRIAGEArrived by private vehicle. Historian: patient. ( pt reports back pain (chronic) since october 02 2015 pt fell offa moving humve. pt was given 3 days off at that time. pt reports he recently started treatment for this in thelast month. pt reports he has had loss of bowel about a month ago. pt [facility] pt had an mri done and it showed bulging discs. pt reports he has a hx of a-fib so he was notgiven medications for pain.).Triage time: 11:01/12/2021. Acuity: LEVEL 3.This started yesterday. Onset. 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 Xarelto Oral. --12:29 01/12/21 Giorgi Menjivar.AllergiesAlmond. --11:29 01/12/21 Hui Gil R.N.Avacado. --11:29 01/12/21 Hui Gil R.N.PROBLEMS:Spinal imginement.Bulging discs. --11:30 01/12/21 Hui Gil R.N.Loop recorder.Atrial Fibrillation. --11:34 01/12/21 Hui Gil R.N.Medication/allergy information source: the patient. --11:31 01/12/21 Hui Gil R.N.ADDITIONAL SURGERIES:Ablation X2.Loop recorder. --11:30 01/12/21 Hui Gil R.N. 2 Clinical Report - Nurses [facility] Emergency Department [address] [place] [address] Phone #: ext- [phone] 01/12/2021 11:19 Patient: [...] sinceincident 4 weeks ago when seen in [facility] ED and MRI done per patient. pt [...] warning. Verbalizes understanding. --12:01/12/21 Shanda Gonsales R.N. 12:07 01/12/2021 Percocet (oxyCODONE-Acetaminophen) PO Tablets 1 tab given. Allergies verified and 3 Clinical Report - Nurses [facility] Emergency Department [address] [place] [address] Phone #: ext- [phone] 01/12/2021 11:19 Patient: [...] Patient transported to radiology by wheelchair with survey field technician. --12:09 01/12/21 Shanda Gonsales R.N.DISPOSITION / DISCHARGE Condition at departure: improved and stable. No learning barriers present. Discharge instructions provided and reviewed with the patient. Reviewed medication(s) side effects, precautions, dosing and course information. Prescription(s) sent electronically to pharmacy. Work note given. Patient verbalized understanding. Written instructions provided in Syrian. The patient was discharged by the physician. He was discharged home and accompanied by spouse. He left ambulatory and via private vehicle. Spouse driving. --12:46 01/12/21 Belgica Joaquin R.N. 12:44 01/12/21. BP: 134/90. HR: 90. RR: 18. O2 saturation: 99%. Temp: 97.9 F. Pain level now 7/10. --12:46 01/12/21 Belgiac Joaquin R.N.Locked/Released at 01/12/2021 12:47 by Belgica Joaquin R.N. Name Value Range Interpretation Code Description Data Sera rce(s) Supporting Document(s) ID Date Data Source [id number] 01/12/2021 11:26:00 AM EDT [facility] 1 Clinical Report - Physicians/Mid Levels [facility] Emergency Department [address] [place] [address] Phone #: ext- [phone] 01/12/2021 11:19 Patient: GALLITO MONTGOMERY Sex: M [...] bowel 1 moth ago was seen at [facility] and had an MRI which showed [...] Medications: Xarelto Oral. Alieve about 199901/11/2021. Allergies: Vandiver. Avacado. 2 Clinical Report - Physicians/Mid Levels [facility] Emergency Department [address] [place] [address] Phone #: ext- [phone] 01/12/2021 11:19 [id number] Sex: M : 1995 Age: 26ySOCIAL HISTORYFormer [...] has 3 Clinical Report - Physicians/Mid Levels [facility] Emergency Department [address] [place] [address] Phone #: ext- [phone] 01/12/2021 11:19 Patient: GALLITO MONTGOMERY Sex: M : 1995 Age: 26y a [...] tablet. Refills: 0. Substitution permitted. Pharmacy - [facility] [employer] [address] [facility] ; [place] [address]. . prednisone 10 mg tablet Take 4 tablet once a day for 10 days -- x 2 days then 3 tabs daily x 2 days then 2 tabs daily x 2 days then 1 tab daily x 2 days. Dispense 30 tablet. Refills: 0. Substitution permitted. Pharmacy - [facility] [address] [facility] ; [place] [address]. . Percocet 5 mg-325 mg tablet Take 1 tablet four times a day for 3 days -- as needed for pain. Dispense 12 tablet. Refills: 0. Substitution permitted. Pharmacy - [facility] [address] ; [place] [address]. Phone: . 4 Clinical Report - Physicians/Mid Levels [facility] Emergency Department [address] [place] [address] Phone #: ext- [phone] 01/12/2021 11:19 Patient: GALLITO MONTGOMERY Sex: M [...] rce(s) Supporting Document(s) ID Date Data Source [id number] 01/12/2021 02:58:00 [place] [address] PHONE: [phone] FAX: [phone] Name .................. : DONTEKERVIN You ZENDEJAS Acct Number.................. : [id number] ROOM. ................. : [place]- MR Number ................... : [id number] Stay type ............. : E/R Discharge Date......... ... : Admit Date ......... : 08/30 Admit Phys .................... : CHANLIECCO Date of ....... : 1995 Family Phys ................... : UNKNOWN CO Phone .................. : [phone] Age ................................ : 26 Film# .................. .:[id number] Sex ................................. : M Unsigned transcriptions are preliminary reports and do not represent a medical or legal document SPINE COMPLETE [id number] COMPLETE:01/12/21 11:40 [id number] Reason(s): Lower Back Pain LUMBOSACRAL SPINE 5 [...] MD , 01/12/21 14:58, SCB Transcribe Initials: SSR, Transcribe Date: 01/12/21 12:38, Dictation Date: Copy for: EMERGENCY DEPT via mode Copy for: 710 MED REC DISCHARGED Page 1 of 1 Name Value Range Interpretation Code Description Data Sera rce(s) Supporting Document(s) ID Date Data Source [id number] 12/10/2020 12:16:59 PM EDT [facility] NT INFORMATIONPatient MRN Name Date of Age Gend*PT [id number] Gallito Hinojosa 1995 25 years M ---PT Location Admission Date/Time Visit ID Attending Provider --- --- --- --- EPI ID CSN Admitting Pro vider [id number] ---Cardiology Office VisitSubjectiveChief Complaint: Status post atrial [...] of having procedure completed [facility] due tonausea, vomiting, and diarrhea. [...] Social Gatherings with Friends and Family: Attends Spiritism Services: Active Member of Clubs or Organizations: Attends Club or Organization Meetings: Marital Status:Intimate Partner Violence: Fear of Current or Ex-Partner: Emotionally Abused: Physically Abused: Sexually Abused:Medications and AllergiesAllergiesAllergen Reactions Vandiver Meal Anaphylaxis Avocado AnaphylaxisCurrent Outpatient MedicationsMedication Sig [...] NEGATIVE Final Testing site 11/16/2020 [address]FORMED [place] [address] [place] [id number] Blood bank comment 11/16/2020 SEE NOTES Final [...] sinus rhythm. [facility] Patient will call the office if [...] rce(s) Supporting Document(s) ID Date Data Source [id number] 11/30/2020 11:12:00 AM EDT [facility] ([facility]) Name Value Range Interpretation Code Description Data Sera rce(s) Supporting Document(s) Albumin [Mass/volume] in Serum or Plasma 4.0 [facility] ([facility]) Alanine aminotransferase [Enzymatic activity/volume] in Serum or Pl asma 32 [facility] ([facility]) Calcium [Mass/volume] in Serum or Plasma 9.5 [facility] ([facility]) Alkaline phosphatase [Enzymatic activity/volume] in Serum or Plasma 7 4 [facility] ([facility]) Carbon dioxide, total [Moles/volume] in Serum or Plasma 30 [facility] ([facility]) Chloride [Moles/volume] in Serum or Plasma 104 [facility] ([facility]) Potassium [Moles/volume] in Serum or Plasma 4.1 [facility] ([facility]) Protein [Mass/volume] in Serum or Plasma 7.6 [facility] ([facility]) Sodium 137 [facility] ([facility] Aspartate aminotransferase [Enzymatic activity/volume] in Serum or Plasma 19 [facility] ([facility]) Urea nitrogen [Mass/volume] in Serum or Plasma 11 [facility] ([facility]) Creatinine For GFR 1.06 [facility] ([facility]) Glucose 77 70-100 [facility] ID Date Data Source [id number] 11/30/2020 11:12:00 AM EDT [facility] ([facility]) Name Value Range Interpretation Code Description Data Sera rce(s) Supporting Document(s) Red Blood Count 5.28 4.70-6.20 [facility] ([facility]) White Blood Count 5.3 4.3-10.9 [facility] ([facility]) Platelets 153 130-400 [facility] ([facility] Hemoglobin 16.0 13.0-17.0 [facility] ([facility]) Hematocrit 47.7 39.0-50.0 [facility] ([facility]) ID Date Data Source [id number] 11/21/2020 11:09:00 AM EDT [facility] ([facility]) Name Value Range Interpretation Code Description Data Sera rce(s) Supporting Document(s) Magnesium Level 2.1 [facility] ([facility]) Troponin 1.48 [facility] ID Date Data Source [id number] 11/21/2020 11:09:00 AM EDT [facility] ([facility]) Name Value Range Interpretation Code Description Data Sera rce(s) Supporting Document(s) Sodium 140 [facility] Calcium [Mass/volume] in Serum or Plasma 9.1 [facility] ([facility]) Carbon dioxide, total [Moles/volume] in Serum or Plasma 26 [facility] ([facility]) Chloride [Moles/volume] in Serum or Plasma 107 [facility] ([facility]) Glucose 76 70-100 [facility] ([facility] Potassium [Moles/volume] in Serum or Plasma 4.1 [facility] ([facility]) Blood Urea Nitrogen 12 5-21 [facility] (Ca [facility]di[facility]) Glomerular filtration rate/1.73 sq M.pre dicted [Volume Rate/Area] in Serum or Plasma by Creatinine-based formula (MDRD) Laboratory test result [facility] ([facility]) Creatinine 0.93 0.6-1.5 [facility] ([facility]) ID Date Data Source [id number] 11/20/2020 07:17:20 AM EDT [facility] Name Value Range Interpretation Code Description Data Sera rce(s) Supporting Document(s) &PDF [facility] XFHLLd5kAiANMwVe86/IRTjjKSWxk1EwHGilBTt0DSaiDWCyI1UoaRneEDjXPB8aNcJODJwKHNFvBEAO yZW [file] AgICAgICAgICAgICAgICAgICAgICAgICAgICAgICAgICAgICAgICAgICAgICAgICAgDQogICAgICAgIC AgICAgICAgICAgICAgICAgICAgICAgICAgICAgICAg ICAgICAgICAgICAgICAgICAgICAgICAgICAgICAgICAgICAgICAgICAgICAgICAgICAgICAgICAgICAg DQogICAgICAgICAgICAgICAgICAgICAgICAgICAgICAgICAgICAgICAgICAgICAgICAgICAgICAgICAg ICAgICAgICAgICAgICAgICAgICAgICAgICAgICAgIC AgICAgICAgICAgDQogICAgICAgICAgICAgICAgICAgICAgICAgICAgICAgICAgICAgICAgICAgICAgIC AgICAgICAgICAgICAgICAgICAgICAgICAgICAgICAgICAgICAgICAgICAgICAgICAgICAgDQogICAgIC AgICAgICAgICAgICAgICAgICAgICAgICAgICAgICAg ICAgICAgICAgICAgICAgICAgICAgICAgICAgICAgICAgICAgICAgICAgICAgICAgICAgICAgICAgICAg ICAgDQogICAgICAgICAgICAgICAgICAgICAgICAgICAgICAgICAgICAgICAgICAgICAgICAgICAgICAg ICAgICAgICAgICAgICAgICAgICAgICAgICAgICAgIC AgICAgICAgICAgICAgDQogICAgICAgICAgICAgICAgICAgICAgICAgICAgICAgICAgICAgICAgICAgIC AgICAgICAgICAgICAgICAgICAgICAgICAgICAgICAgICAgICAgICAgICAgICAgICAgICAgICAgDQogIC AgICAgICAgICAgICAgICAgICAgICAgICAgICAgICAg ICAgICAgICAgICAgICAgICAgICAgICAgICAgICAgICAgICAgICAgICAgICAgICAgICAgICAgICAgICAg ICAgICAgDQogICAgICAgICAgICAgICAgICAgICAgICAgICAgICAgICAgICAgICAgICAgICAgICAgICAg ICAgICAgICAgICAgICAgICAgICAgICAgICAgICAgIC AgICAgICAgICAgICAgICAgDQogICAgICAgICAgICAgICAgICAgICAgICAgICAgICAgICAgICAgICAgIC AgICAgICAgICAgICAgICAgICAgICAgICAgICAgICAgICAgICAgICAgICAgICAgICAgICAgICAgICAgDQ t2D1erFLIcWTPkAW6tRAk5Iv2+QVsZLhAeBBZ5ouDy cO0UCF4oc9OqVUpdLFCjb5YfMBu3TG9JUJVkJTkhUA6GKTpvsc1LWGGlJEUomOAAe9hfClFtMAP5UTGc KhmuGT4MEYGiP6vkzqByOGKgTXKKVGlxHRXTUKysHXKRYSCzURGoNnVjVNvdZD7Ot8LqcWQ6QYe+Pg0K KV4at9XjRSxcAbIjKZ1rnj8HQIbHAgTnG7XppbL3OO JnERRoPm0PEPJkSTMrbPQoRxKoSKSMPjZyF3PwkL01ORPNSv2+DHfsrwLlGefJJcRwVYOqv4WvFWl0CL 4YPTIhQFj1iHIqJJ1qbOZxsHOkNChkQO2EUXV9GVtmFGEuSJMOZY2QIAyhKAK1YqejoeRovKHvDOhaLJ 9QYXJlbnQgMjIgMCBSDQo+Va2NKU1pl2QcYCzfMIXn PS5ssv5SCSqGOfQaT5U2sHSyM5F0UEtnSk3DJMFyIWRhSaZhXENZOKzxCW1AXR6tkzC9OL2SkXSgEXMs OVQgcIHsWDq2V94ixGEzFXteXS8HBXM+Doroteo+He8VAZGwFTEcJUKdJxGsRWDJOtDxZ9FwD2KZz1OgH6Ge EI90gAheryReFTruXO4WMI2uOPIeVVXXTK7ZhQStoK 7lkhEoWyUvLHTXLeHeH37kpKPrGSUoMFXgJUPnIr2SAAYjN8EkzlTraLhestDkNPHbCVFQSZ1QHVxocv WthMKrxTfuUT88sJtrYF6UFx9ERfGcBG2cpm3GuDVwWz7ABBJsJF8PZNLwAFDfZPOoURG2HNQeKkMgCN xaWUBiQUJyVMO6GRQwPIHgXL6MNiPmEBQmDZl2ZNIb ASCzFACoxf4HPUZvRCKdKZYiLKFaGYFgLNEdEQoxAYXaYDXfDYq3HTOdWKTpYR0FQhQvEMIwCDAbFOBa BKJyGHTdvx7LBVBoZQWaFsGlNyTeNOOxRUAbQRngLEJlBRE9LyB3TBZfLVDeKX1QJwCwKTAuOYD7RZoa CAJhNTEdai3PSHBqILQlVXXvBiIiQVDgCHNwIDlhLI SqLEO6TrT0KINwTUFwVJ5KBjRnBVBdWBMaUSWjRYRnRRRtuh2NWALwSFOyJCA6TCXzNXLqINAxGOzpZF TiRSOlGBB7FMIbCDHySR7TIsMpWCMhTKW3UAVtGQZgPENsge3ZRRIyYEOlLMi7GRIyMAEtQUWeGMlkYP GqBIPwZBX9QAVcACPoFD1ABgQdVHReEGQrZlPtWKKo JLZrrz0AEEBmAIBlIzJ7OEJhKDAkQBUxPRnuECXxXVT6EPEuCEDrKZBlJF1ATyNjPTVjPOs1PkPeUBDd TTWofp2HWOMxIACcIUH5XULaJDGiPWUcLWysXDPzUDRcJhAwZAPdTSYdSE4TPsFiICWeMlG5ZPZdAEYt ZNPpvg8AHEXiTITiCOjbNqFaYRJlUJCsXCc2muOthP YgJMc3ZW8BI5MjyeZrGnTHNc4Dh344FYO1CSAqMx1LK1fgTw1dYEPkKHQFEr5UCBx4TFBdUhghWiS5WA PqUXSiQKp9DqNzLYI2ADE2WwC1LGR+FOzkSJN3B9XiOVl9EnM0RYBqHAwgYqE1CHb7LQEoZfR5SG0eMB ANCj4+EFrogSEbnNaaJPBUBjOwTLJ6QAtwJOUVXj2E ID Date Data Source [id number] 11/19/2020 11:45:51 AM EDT [facility] NT INFORMATIONPatient MRN Name Date of Age Gend*PT [id number] Gallito Hinojosa 1995 25 years M HOPPT Location Admission Date/Time Visit ID Attending Provider --- --- --- --- EPI ID CSN Admitting Pro vider [id number] ---Arterial Line PlacementPatient location during procedure: ORIndications [...] rce(s) Supporting Document(s) ID Date Data Source [id number] 11/19/2020 11:45:21 AM EDT [facility] NT INFORMATIONPatient MRN Name Date of Age Gend*PT [id number] Gallito Hinojosa 1995 25 years M HOPPT Location Admission Date/Time Visit ID Attending Provider --- --- --- --- EPI ID CSN Admitting Pro vider [id number] ---AirwayPatient location during procedure: ORUrgency: electiveDifficult airway: [...] cmPlacement verified by: chest auscultation and + [id number]: CTA and equal breath sounds bilateralGrade view: grade IIa - partial view of glottis Name Value Range Interpretation Code Description Data Sera rce(s) Supporting Document(s) ID Date Data Source [id number] 11/19/2020 10:48:37 AM EDT [facility] NT INFORMATIONPatient MRN Name Date of Age Gend*PT [id number] Gallito Hinojosa 1995 25 years M HOPPT Location Admission Date/Time Visit ID Attending ProviderCV-11 11/19/20 1035 --- Ward Durán MD([id number]) EPI ID CSN Admitting Provider [id number] Ward Durán MD([id number])H&P reviewed. The patient was examined and there are no changes to the H&P.Ward Durán MD10:48 AM Name Value Range Interpretation Code Description Data Sera rce(s) Supporting Document(s) ID Date Data Source [id number] 11/16/2020 10:08:39 AM EDT [facility] Name Value Range Interpretation Code Description Data Sera rce(s) Supporting Document(s) EKG [facility] WFCVEe7aMpSAKvGmi8JxXeLiHPEnGB2nwfl3W1Q3zZPmK6ZqbWUmf6ycE3DhB8HfNPXtOFYIEV4MyNMr jb2 [file] OTggMDAwMDAgbiAKMDAwMDAwMDQwOSAwMDAwMCBuIA smFNVhWAYhFAOjQFZgNEPeCK7fPkGeABPmQTN9HHXsTXRiMDPgzbYVQATtPRZwROr4LGKgYBJiUZKhGZ edAFTyXFQhTFH1VLIsIXYlIQ9cEtJmYLOfMME4ArWaOHUtUTHussHDQZJjSKBjEMO3UpKeYPIpDILrFZ usXNVdHKHaHLvtQHQhUAPbFU7vClBlTPKvAJFpHCfn VIRdMZCzwgNAIMCdCIYbIYXeMrGsQLEsLTMpCCjoXPOlNMStFoL5IFEwJKVxKV6wXhAaULSmGMS8SJrj ZNUjBPTbbnPDIHVyDBGdEHbwMLGbAQQaRHBfVTshQCNsXFLhWVD3SUKqIECmMN5qHyCoQHCpAKCsZYLk XzX4YgInGyYFqUYlxXrqxoy1OWmtH0k4BNGhXFzoSB 3xqvXsMAEvNshdTy1dcMW3WTPwJfeCKk4Kq4OdzlM5zyWhBoEeTqNcBqDkFL0E ID Date Data Source [id number] 11/16/2020 09:13:47 AM EDT [facility] NT INFORMATIONPatient MRN Name Date of Age Gend*PT [id number] Gallito Hinojosa 1995 25 years M OPPT Location Admission Date/Time Visit ID Attending Provider --- --- --- Violeta Ortega([id number]) EPI ID CSN Admitting Provider [id number] ---OUTPATIENT / OBSERVATIONAL SURGICAL OR INVASIVE PROCEDUREName: Gallito Camargo : 1995 Sex: male Care Provider: [facility] HospitalAttending Physician: Dr. QuintanaTORY OF PRESENT ILLNESS: Mr Camargo is a 25 years old -Portuguese malewith history of depression, anxiety, GERD, and [...] RECORDER 08/2020 WISDOM TOOTH EXTRACTION localALLERGIES:AllergiesAllergen Reactions Vandiver Meal Anaphylaxis Avocado AnaphylaxisMEDICATIONS:Prior to Admission medicationsMedication [...] thyromegaly. No carotid bruits.MENTAL / NEUROLOGICAL STATUS: [id number]: Clear to auscultation. No wheezes, rhonchi or crackles.HEART: Rate rhythm regular. S1, S2. No murmur, rub or gallop.ABDOMEN: Bowel sounds positive times four. Soft, non tender. No reboundtenderness. No hepatosplenomegaly. Negative CVAT.EXTREMITIES: Pulses are symmetrical. NO edema.Anesthesia complications: [facility] Frailty [facility] :: 3/10 Managing Well (medical problems are well controlled,but are not regularly active beyond routine walking).Stop Bang Questionnaire - Total Score:STOP-Bang Total Score: 2ASSESSMENT: Primary Diagnosis/Indication: Atrial fibrillation, unspecifiedtype.PLAN: Procedure: Mr Camargo is a 25-year-old male with history of recurrentParoxysmal atrial fibrillation. He is now scheduled to undergo ABLATION A-FIBECHO TRANSESOPHAGEAL on /12/2020 9:13 Harini Burns document or parts of this document, were dictated using [employer] speaking software. A reasonable attempt at proofreading has beenmade to minimize errors. Please call with any questions or corrections.* Name Value Range Interpretation Code Description Data Sera rce(s) Supporting Document(s) ID Date Data Source [id number] 11/16/2020 05:46:21 PM EDT [facility] archana GARCIA SPEC EXP DATE 1PATI ENT ABO/Rh O POSITIVEANTIBODY SCREEN NEGATIVETESTING SITE PERFORMED AT [address] [place], [place] [id number] BANK COMMENT BLOOD TYPE CONFIRMED. Name Value Range Interpretation Code Description Data Sera rce(s) Supporting Document(s) TYPE AND SCREEN [facility] o f JOSE ID Date Data Source [id number] 11/16/2020 04:03:58 PM EDT [facility] GARCIA Name Value Range Interpretation Code Description Data Sera rce(s) Supporting Document(s) WBC 3.7 10*3/uL (4.1-11.0) L [facility] [place] RBC 4.93 10*6/uL (4.60-6.10) [facility] HGB 15.3 g/dL (13.5-18.0) [facility] HCT 45.9 % (41.0-53.0) [facility] MCV 93.3 fL (80.0-95.0) [facility] MCH 31.0 pg (27.0-32.0) [facility] MCHC 33.2 g/dL (32.0-36.0) [facility] RDW 13.7 % (10.5-14.5) [facility] PLT 149 10*3/uL (150-450) L [facility] MPV 11.0 fL (7.1-10.7) H [facility] ID Date Data Source [id number] 11/16/2020 03:47:26 PM EDT [facility] Name Value Range Interpretation Code Description Data Sera rce(s) Supporting Document(s) SODIUM 140 mmol/L (136-145) [facility] POTASSIUM 4.3 mmol/L (3.6-5.2) [facility] CHLORIDE 104 mmol/L (100-108) [facility] CO2 32 mmol/L (22-31) H [facility] ANION GAP 4 mmol/L (7-16) L [facility] UREA NITROGEN 14 mg/dL (7-24) [facility] CREATININE 1.01 mg/dL (0.80-1.30) [facility] BUN/CREAT RATIO 13.9 RATIO (10.0-20.0) [facility] GLUCOSE 89 mg/dL (70-99) [facility] CALCIUM 9.3 mg/dL (8.4-10.2) [facility] GFR >60 ml/min/1.73m2 (>59) [facility] GFR ( AMER) >60 ml/min/1.73m2 (>59) [facility] GFR INTERPRETATION [facility] --NORMAL KIDNEY FUNCTION OR MILD DISEASE - GFR >OR= 60CHRONIC KIDNEY DISEASE - GFR 15 - 59RENAL FAILURE - GFR <15 Est. GFR calculation based on the MDRDstudy equation, which assumes a steadystate for creatinine. Est. GFR should notbe used for medication dosing. ID Date Data Source [id number] 09/23/2020 04:40:52 PM EDT [facility] NT INFORMATIONPatient MRN Name Date of Age Gend*PT [id number] Gallito Hinojosa 1995 25 years M ---PT Location Admission Date/Time Visit ID Attending Provider --- --- --- --- EPI ID CSN Admitting Pro vider [id number] ---[facility] [address] [facility], [address] (First Floor)[place], [place] [address]Lv.: Fax: Hatient: Gallito Camargo : 1995Date: 09/23/20CARDIOLOGY TELEMEDICINE VISITPatient was identified by name and date of .Verbal consent was obtained from the patient for this telemedicine visit.Patient is aware of the risks, limitations, and benefits of a telemedicinevisit.This telemedicine assessment was conducted remotely with the assistance ofCartoDB communication technology. Telephone Only Codes 38461: 21-30 minutesof medical discussion: Telephone Only .Subjective:Gallito [...] tablet, Take 100 mg by mouth daily 11/ qd, Disp: , Rfl: Omeprazole 20 MG [...] duringtheir lifetime. I reviewed his ablation from 2019 any we achieved excellenttemperatures at the time [...] and benefitsFollow Up cryoablationSignature: Ward Durán MD, [facility], [facility] CENTERCardiac Electrophysiology and Arrhythmia ServiceDate: September 23, 2020Time: 4:37 PMThis document or parts of this document, were dictated using [employer]. A reasonable attempt at proofreading has been made to minimize errors.Please call with any questions or corrections. Name Value Range Interpretation Code Description Data Sera rce(s) Supporting Document(s) ID Date Data Source [id number] 08/17/2020 11:31:00 AM EST [place] Name Value Range Interpretation Code Description Data Sera rce(s) Supporting Document(s) SARS coronavirus 2 RNA Not Detected [facility] [place] This lab was ordered by [facility] and reported by [facility]. ID Date Data Source [id number] 07/09/2020 03:02:00 PM EST [facility] ([facility]) [...] Center) Glucose 120 74-106 [facility] ([facility]) Blood Urea Nitrogen 11 7-18 [facility] (Ca [facility]) Creatinine 1.05 0.70-1.30 [facility] ([facility]) Glomerular filtration rate/1.73 sq M.pre dicted [Volume Rate/Area] in Serum or Plasma by Creatinine-based formula (MDRD) 99.6 [facility] ([facility]) ID Date Data Source [id number] 06/24/2020 11:06:40 AM EST [facility]PAT[facility] NT INFORMATIONPatient MRN Name Date of Age Gend*PT [id number] Gallito Hinojosa 1995 25 years M ---PT Location Admission Date/Time Visit ID Attending Provider --- --- --- --- EPI ID CSN Admitting Pro vider [id number] ---[facility] [address] [facility], [address] (First Floor)[place], [place] [address]Dq.: Fax: Qatient: Gallito Camargo : 1995Date: 06/24/20CARDIOLOGY TELEMEDICINE VISITPatient was identified by name and date of .Verbal consent was obtained from the patient for this telemedicine visit.Patient is aware of the risks, limitations, and benefits of a telemedicinevisit.This telemedicine assessment was conducted remotely with the assistance ofCartoDB communication technology. Telephone Only Codes 79373: 21-30 minutesof medical discussion: Telephone Only .Subjective:Gallito [...] all. [place] PV[place]. I am not sure he is having anyatrial fibrillation at all. I am not sure any of his symptoms already beencardiac in nature. This may all be anxiety driven. However we will need tocorrelate symptoms to his underlying cardiac rhythm. We will arrange for thepatient to have a 30-day event monitor done [place]. If the event monitor shows atrial fibrillation [...] event monitor shows atrialfibrillationSignature: Ward Durán MD, FAC, [facility]ENTERCardiac Electrophysiology and Arrhythmia ServiceDate: June 24, 2020Time: 11:02 AMThis document or parts of this document, were dictated using [employer]. A reasonable attempt at proofreading has been made to minimize errors.Please call with any questions or corrections. Name Value Range Interpretation Code Description Data Sera rce(s) Supporting Document(s) ID Date Data Source [id number] 05/22/2020 12:50:00 PM EST [facility] ([facility]) Name Value Range Interpretation Code Description Data Sera rce(s) Supporting Document(s) Troponin Laboratory test result [facility] ([facility]) ID Date Data Source [id number] 05/22/2020 12:50:00 PM EST [facility] ([facility]) Name Value Range Interpretation Code Description Data Sera rce(s) Supporting Document(s) White Blood Count 4.5 4.0-10.0 [facility] ([facility]) Red Blood Count 5.33 4.30-6.10 [facility] ([facility]) Platelets 168 150-450 [facility] ([facility]iology [facility]) Hemoglobin 15.7 [facility] ([facility]) Hematocrit 48.2 [facility] ([facility]) ID Date Data Source [id number] 05/22/2020 12:50:00 PM EST [facility] ([facility]) Name Value Range Interpretation Code Description Data Sera rce(s) Supporting Document(s) Calcium [Mass/volume] in Serum or Plasma 9.7 [facility] ([facility]) Sodium 138 [facility]) Carbon dioxide, total [Moles/volume] in Serum or Plasma 30 [facility] ([facility]) Potassium [Moles/volume] in Serum or Plasma 4.4 [facility] ([facility]) Chloride [Moles/volume] in Serum or Plasma 104 [facility] ([facility]) Blood Urea Nitrogen 14 7-18 [facility] ([facility]) Glucose 70 70-100 [facility] ([facility]) Glomerular filtration rate/1.73 sq M.pre dicted [Volume Rate/Area] in Serum or Plasma by Creatinine-based formula (MDRD) Laboratory test result [facility] ([facility]) Creatinine 1.06 0.70-1.30 [facility] ([facility]) ID Date Data Source [id number] 04/02/2020 02:04:26 PM EDT [facility]PAT[facility] NT INFORMATIONPatient MRN Name Date of Age Gend*PT [id number] Gallito Hinojosa 1995 25 years M ---PT Location Admission Date/Time Visit ID Attending Provider --- --- --- --- EPI ID CSN Admitting Pro vider [id number] ---Cardiology Office NoteName: Gallito Camargo Gender: maleDate of : 1995 Age: 25 yearsPrimary Care Provider / Referring Physician: [facility] CareCurrkatheryn HistoryChief Complaint: Follow-up to recent cryoablation for atrial fibrillationHPI:This patient is a 25 years male presents today for follow-up. He has thefollowing medical problem list:1. Paroxysmal atrial fibrillation; status post cryoablation 03/20/2020Patient presents today for follow-up. He tells me that he did have episode ofchest pain and feeling short of breath postprocedure. [facility] He states that those symptoms have pretty [...] Depression Paroxysmal atrial fibrillation Syncope most recent 05/2019Past Surgical History:Procedure Laterality [...] file Gets together: Not on file Attends mu-ism service: Not on file Active member of [...] History Narrative Not on fileMedications and AllergiesALLERGIES/SENSITIVITIES: Vandiver meal and AvocadoCurrent Outpatient Medications: metoprolol tartrate [...] parts of this document, were dictated using [employer]. A reasonable attempt at proofreading has been made to minimize errors.Please call with any questions or corrections. Name Value Range Interpretation Code Description Data Sera rce(s) Supporting Document(s) ID Date Data Source [id number] 03/24/2020 12:46:00 PM EDT [facility] ([facility]) Name Value Range Interpretation Code Description Data Sera rce(s) Supporting Document(s) Free T4 1.05 [facility] ([facility]) Thyroid Stimulating Hormone 0.923 [facility] ([facility]) ID Date Data Source [id number] 03/24/2020 12:46:00 PM EDT [facility] ([facility]) Name Value Range Interpretation Code Description Data Sera rce(s) Supporting Document(s) Aspartate aminotransferase [Enzymatic activity/volume] in Serum or Plasma 24 [facility] ([facility]) Alkaline phosphatase [Enzymatic activity/volume] in Serum or [...] or Plasma Laboratory test result [facility] ([facility]) ID Date Data Source [id number] 03/24/2020 12:46:00 PM EDT [facility] ([facility]) Name Value Range Interpretation Code Description Data Sera rce(s) Supporting Document(s) Calcium [Mass/volume] in Serum or Plasma 9.6 [facility] ([facility]) Sodium 138 [facility] ([facility]) Carbon dioxide, total [...] Center) Glucose 95 70-100 [facility] Creatinine 0.98 0.70-1.30 [facility] ([facility]) Glomerular filtration rate/1.73 sq M.pre dicted [Volume Rate/Area] in Serum or Plasma by Creatinine-based formula (MDRD) Laboratory test result [facility] ([facility]) ID Date Data Source [id number] 03/24/2020 12:46:00 PM EDT [facility] ([facility]) Name Value Range Interpretation Code Description Data Sera rce(s) Supporting Document(s) White Blood Count 5.1 4.0-10.0 [facility] ([facility]) Red Blood Count 5.06 4.30-6.10 [facility] ([facility]) Platelets 132 150-450 [facility] Hemoglobin 15.4 [facility] ([facility]) Hematocrit 46.5 [facility] ([facility]) ID Date Data Source [id number] 03/20/2020 10:39:41 AM EDT [facility] Name Value Range Interpretation Code Description Data Sera rce(s) Supporting Document(s) &PDF [facility] KFSARi6uObMBYcNe80/WJIonPKTqj6RmKMecKIg3WEbkAMAnG4JwbKcbYUvPRJ4aLzYHWXiGHEZrSSUW yZW B7g2EpBVPnLhFIpOC5MB4aZEHhdwMjbcT9rV7ePJ5EXFN+Gj6ICB1at1XmRZi2USRdb2XbFArmEOq2T1 NifLFpnwObAoyonGGSFBUjWKYrP6waxms5mBPjSmQ9Si4UMqXcu5WjJJFpAJjRbeOnQ3/jNhZ+X6D/gc A+dAo0MW+ffHUf2bjtozwJBTQIuxAIX2MEIJ2gV3JU eAluo1MlmFliDHkTGCbSPrEswl7m4jjTCbMSmZ4/oOMwwBgj/jF7BBUR8hW09p2kd3pNNoext2Eu/TkQ xQzUKluNmvvkJMG9hvGkMrjaUNgfTYHnlGLyWG2w1CnOywedwAUHEofva+riEnEZMHREBeZotngz/Q7N /vsH2slVlTqSdDZfh3HyTyKAqp+HBqaDKtDN7CQL2b WH34N7G3EjemfyWLBmlWMQvC19N5JgDHtWqtnCwTMODI2O8Wj4442JbkFgClNTPs7qEpvHCr+m101ihn prVG6gNltx6+X5zJ/OpHnANkdxUzyoptUzgKeMmDOGZlzG9J2idolPQztnqJUVR8jU/MxF4TcLVLQysO VSNhl9uIpPlpV8K6U8JbhM+Ut46y+upNCwgeAJIx9W a15TLMCxcNFKHyCUpUPPIDRNtIBONIVK1z8NoLJAYMFoplW71XaozfwMN5chBZHC1MerxG5AklIAEOWG [file] L2ExLdMXEqPKP6BIHdNmhrHy2yVYBZZb0+UNvjaIDgqVytBTAHPsA0WwP0VCsaRKGSXy1Q ID Date Data Source [id number] 03/20/2020 09:48:22 AM EDT [facility] NT INFORMATIONPatient MRN Name Date of Age Gend*PT [id number] Gallito Hinojosa 1995 25 years M HOPPT Location Admission Date/Time Visit ID Attending Provider --- --- --- --- EPI ID CSN Admitting Pro vider [id number] ---Arterial Line PlacementPatient location during procedure: ORIndications for arterial line: hemodynamic monitoringStaffingPerformed by: Rebel Arguelles, MDApproved by: Rebel Arguelles, MDCompleted: patient identified, risks and benefits discussed, [...] rce(s) Supporting Document(s) ID Date Data Source [id number] 03/20/2020 09:47:46 AM EDT [facility] INFORMATIONPatient MRN Name Date of Age Gend*PT [id number] Gallito Hinojosa 1995 25 years M HOPPT Location Admission Date/Time Visit ID Attending Provider --- --- --- --- EPI ID CSN Admitting Pro vider [id number] ---AirwayPatient location during procedure: ORUrgency: electiveDifficult airway: [...] cmPlacement verified by: chest auscultation and + VMWY2Ixyqfaadadjj: equal breath sounds bilateral and CTAGrade view: grade I - full view of glottis Name Value Range Interpretation Code Description Data Sera rce(s) Supporting Document(s) ID Date Data Source [id number] 03/20/2020 08:48:41 AM EDT [facility] NT INFORMATIONPatient MRN Name Date of Age Gend*PT [id number] Gallito Hinojosa 1995 25 years M HOPPT Location Admission Date/Time Visit ID Attending ProviderCV-03/20/20 0756 --- Ward Durán MD([id number]) EPI ID CSN Admitting Provider [id number] Ward Durán MD([id number])H&P reviewed. The patient was examined and there are no changes to the H&P.Ward Durán MD8:48 AM Name Value Range Interpretation Code Description Data Sera rce(s) Supporting Document(s) ID Date Data Source [id number] 03/15/2020 08:21:00 AM EDT [facility] Name Value Range Interpretation Code Description Data Sera rce(s) Supporting Document(s) SARS coronavirus 2 RNA [facility] This lab was ordered by [facility] and reported by [facility]. ID Date Data Source [id number] 03/17/2020 03:07:40 AM EDT [facility] Name Value Range Interpretation Code Description Data Sera rce(s) Supporting Document(s) SARS-COV-2 [facility] Not DetectedReference range: Not Detecte d This nucleic acid amplification test was developed and its performance characteristics determined by [employer]. Nucleic acid amplification tests include PCR and [...] detected) result in this assay. Performed At: RN [facility] [address] [id number] Jorge Fernando MD Ph:[phone] ID Date Data Source [id number] 03/13/2020 01:31:20 PM EDT [facility] NT INFORMATIONPatient MRN Name Date of Age Gend*PT [id number] Gallito Hinojosa 1995 25 years M OPPT Location Admission Date/Time Visit ID Attending Provider --- --- --- Violeta Ortega([id number]) EPI ID CSN Admitting Provider [id number] ---OUTPATIENT / OBSERVATIONAL SURGICAL OR INVASIVE PROCEDUREName: Gallito Camargo : 1995 Sex: male Care Provider: [facility] CareAttending Physician: Dr. Durán.HISTORY OF PRESENT ILLNESS: 25 years old black male with a 3-year history ofpalpitations, shortness of breath and syncope related to a diagnosis of atrialfibrillation. 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 His last syncopal episode was inD2018. He continues to have intermittent palpitations associated withshortness of breath and dyspnea on exertion. He feels the palpitations insternal area as well as under his rib cage and in his neck. He describedfeeling fatigued as "exhausted".PAST MEDICAL HISTORY:Past Medical History:Diagnosis Date Anxiety Cardiac murmur Depression Paroxysmal atrial fibrillation Syncope most recent 05/2019[place] SURGICAL HISTORY:Past Surgical History:Procedure Laterality Date WISDOM TOOTH EXTRACTION localALLERGIES:AllergiesAllergen Reactions Vandiver Meal Anaphylaxis Avocado AnaphylaxisMEDICATIONS:Prior to Admission medicationsMedication Sig Start Date End Date Taking? Authorizing Providermetoprolol tartrate (LOPRESSOR) 25 MG tablet Take 12.5 mg by mouth 2 (two) timesa day 1/2 BID Historical Provider, Jessieivaroxaban (XARELTO) 20 MG TABS Take 1 tablet [...] thyromegaly. No carotid bruits.MENTAL / NEUROLOGICAL STATUS: [id number]: Clear to auscultation. No wheezes, rhonchi or crackles.HEART: Rate rhythm regular. S1, S2. No murmur, rub or gallop.ABDOMEN: Bowel sounds positive times four. Soft, non tender. No reboundtenderness. No hepatosplenomegaly. Negative CVAT.EXTREMITIES: Pulses are symmetrical. No edema.Anesthesia complications: [facility] :: 1/10 Very Fit (robust, active, energetic, well motivatedand fit.These people commonly exercise regularly and are in the most fit groupfor their age).Stop Bang Questionnaire - Total Score:STOP-Bang Total Score: 2ASSESSMENT: Paroxysmal atrial fibrillationPLAN: Procedure: Atrial fibrillation ablation and transesophageal echo.03/13/2020 1:31 PMPaloma Vigil NPThijennifer document or parts of this document, were dictated using [employer] software. A reasonable attempt at proofreading has beenmade to minimize errors. Please call with any questions or corrections.* Name Value Range Interpretation Code Description Data Sera rce(s) Supporting Document(s) ID Date Data Source [id number] 03/13/2020 12:40:00 PM EDT [facility] ([facility]) Name Value Range Interpretation Code Description Data Sera rce(s) Supporting Document(s) Red Blood Count 5.10 [facility] ([facility]) White Blood Count 4.0 [facility] ([facility]) Platelets 130 [facility] ([facility]) Hemoglobin 15.9 [facility] ([facility]) Hematocrit 47.3 [facility] ([facility]) ID Date Data Source [id number] 03/13/2020 12:40:00 PM EDT [facility] ([facility]) Name Value Range Interpretation Code Description Data Sera rce(s) Supporting Document(s) Sodium 140 [facility] ([facility]) Carbon dioxide, total [Moles/volume] in Serum or Plasma 33 [facility] ([facility]) Calcium [Mass/volume] in Serum or Plasma 9.5 [facility] ([facility]) Chloride [Moles/volume] in Serum or Plasma 104 [facility] ([facility]) Glucose 85 [facility] ([facility]) Blood Urea Nitrogen 11 [facility] ([facility]) Potassium [Moles/volume] in Serum or Plasma 4.1 [facility] ([facility]) Glomerular filtration rate/1.73 sq M.pre dicted [Volume Rate/Area] in Serum or Plasma by Creatinine-based formula (MDRD) Laboratory test result [facility] ([facility]) Creatinine 1.02 [facility] ([facility]) ID Date Data Source [id number] 03/13/2020 12:11:56 PM EDT [facility] Name Value Range Interpretation Code Description Data Sera rce(s) Supporting Document(s) EKG [facility] IDBKBx4lRkCYGlVhw9VuFcOrBQNqIM0yzbj5G3O5gYDiC2VuxTBgz8mwD2GyJ5NbMHDsTCFISL8UrDSf jb2 [file] f/log skidder/4///xFPz3/FktQ19t71Cu4A/Ql6SUth/iocJ1O86A+nibM4SEV+SyM/9yz+PIRSP/cs/i/P8L/ 368Ge09o2i/2RQ05qgm/cEhpgTZlmdb14IZ71mw+1P 2exX/4v2fxH/CexZeap+eaVb1yxld/QHvrIhZZEDbcNGAyXNvkzMyRBQZSB1HAfYRxApRTwoIDQOCfPd v41ZVM147zBhLZzjepc0qp2TKa3oT4y/+AvFIIKkEyqHningzKexZ/Af0vZwkkIG9/7ln8X+SNf+5Z/J +j+z/6VY5GaeCxCZSbgUWffBF4fiqDA+tHy4JXEBTN MB+PZFzXUFWsE9HY8xg11Tk77WminZWaK4V1QH3GOPBZnBnOtzFrrA0hKQgLJygU+yEIgkJABpsMNhls ArytaZjas5L6NfNrCYAMjZA6qxNkQTDSSEPMOGtKMDUFDDlLXQHQFAnLLNTYOVAwCFZOmFUWNMWPUzVP [file] 6k63Ta5iPbejmRu346oCr224Ef5/P98/kx7eaHQoR4m520HPn38f3p0C1h01aJV1c2x3J1et5u1/Pxv/ KZ9/38/7juzzHuXfym+4P1gr2QJkJJ+MM4oZ8n3tn5sOlQDzQIUiCYpGR5vO0SayGrn3XwgR5EmjC7Ox oN7o3/45h+Rx4tT8oiciihzexJKodbEWveMArwhkOa a0rJ1Ukluwwgs4pp7Qkzcbhvl7vc3Idhzwqoghbd2nbQti9uN6R+ptGN+T9X1C02qnbds7z63K2b43rq MfnYN/6hn136TqT6hqRNHtViy/5wGrAZmfYk81d8L4G/080M8D/TzQzwPjOzG+E+9rfZ2HdqsoN7KyNw [id number]/9if/vKie0Bof7nqx 0a3k009UpiHRjzMsl1sihCbzagaale6xSOrmeh02F+I1iQ5964vlF2K7ra+6I0Hp6y4EEmr61kE0VdXC 4LXzyeao7VJBydfB30942lCYqt/1jvz3U+3OX6diX2LGnShygAbm9m80138b4LQzOE+IT9vE2ZFv/h1w 2iuVA+XycoC+XonFIk4l6b8JJ+Zfb1nT83y8N7076/ bea5BXeDs7dy7exFPkzPvwe+/rA2QLgv5/I//i93x/Pz1Zne/vp home health+ieX3dH8OHz/f6KbotYW5QmUzsy6J [file] 72Jy2i1Z53bG+/JVh/gwgCnSXFhgevnseG5m1N8 [file] 41WNW5RQTri177W16tK6IvlzDtxKj1h65/94mML0+Z eJz+ck9pNgoI8G8zS4LwI47bN+3IagiS+Qw6i/3P7hPgR9XoozdGEattN4mxOSQ7gB3vKarQhs/g80s9 wmKhQzUBN6jtQfpPoykoUoEwtFVQykVLFlCjr7AS5CpDPlKFRyP8O5UNKvci3zOLPmCZWifWNrZnWhUB ZOMS5ZxYLvSJ1GVUq6IJDcOXAfNgHqRIWskbY5DZLv JIVaJGMpI3UmkzKgjUZqBBRlXp0+AU4dh5FhWrZqLOMtUdg0GH4PiWYbQZ9XiSAuuC9rbdAmH917ldGq WBOaFowap7DhDAnxCMBAFY4DEGU2RCC4JGBcRk3+UY1bg2ByGnWpQSBvYdp7OR7VbUSnt9WhBO4DQ1Tf GAUzNHCJOLJ8w9LdMZBgewxxhnzeW9PfHFZ0fF7fUC K9JZWoLFkxDIJpGQMdCvFcPJXsVXupNBXnAAXpZDIwGRUwLHz3sSDrXF2VF8WnQLZgXAXZPPZypqJcGt 4oRIeDOL0kZpVUXOfOOIAuQJ3RKkOlZVQxMln6TnX4AOUfX7LtmbIogZLgJHTBGZqlWijnGXWznZ4ozP dxS1CqUPQ4b8UvTN2QA9SqUXCjIJRMBPB2n1YfRUCe ylgmyepaKmZkSJFcAEJoPPWzGV8Fak1feFShwtCyGQXZUVifEhmmKM9suHenhxgbC4UycDVjOQG+PmVu PP6csh7+TkEeXDZtJub2EYEaMQdsMDYeEKWbVNAeL3kiUHEzSzGwAOFzPiCfGZ2Kl9KrzUYuQp3uzsLj YmoKeHJlZgogICAgIDAgICAgMjQKMDAwMDAwMDAwMC V4EJByMEOiCKzgMAZwULIiQZhuTVBkHKNkNA1tMgYeHCXxIDY3ZFVdHFGqAPDvcyOSOJSvFNP5YMssPC SsKBIjKLEbFXfhVEMmHLIxRBTxRUP0RDT0DELpCqXkMKUpZVBxGPOmXEIhWQMvapTDKYTnFDZzKNJ5GM BtLLBgHXSsGYziWZQxMSQfFLpeLQRcMMNkYP9wNnYt BJGiUBWzADtkPPMjMUStqvWGNFOvNUGmVFXbECUoHDUqIFByOAbpSAYaIKYzSWVcUDBjXIIcQM4vLaNj JEHeGUM0WPLbLCQyNPHczqTOFSNzLLWzITq1HLPmAZQgHMZsZRupWMQjMOQoQQS5WVPsNERrUO9hDuPz DUKwLSX8UyDhNCZdKIZtywVDTUMcQMKrFVT3IqGaFO KxRPMqXDfdYHEaYQLlVQfzYERtKBUyCB0bOeIfRMGzGIOvJSvzCLOmKBVmotDFVAAvESZuSEHaKoUrVC CjYKEvOUfwWYUiCKUpUeNyRUKhTVNtNL0fAmPfCLCzVGJ2HUcxRDDcKKHmfjIUACCiQTOqNEqdWFRzDY GkHALnFRmwPAXjROGxDYD5VMUqWPFiTA9sJuHlMBQz SJFvEABtSfN5DfTlJfGXaWRfxJvhwnn1WMooP6t7FJWkCKsiNR6zrmPaNUBtPyzfFv1rvKR5XECtEqjM Cv3Qi9UjxdV7baAaCrYrUnY1GlMnJH3Z ID Date Data Source [id number] 03/13/2020 10:22:00 AM EDT [facility] NGIO CHESTCLINICAL HISTORY: Persistent [...] rce(s) Supporting Document(s) ID Date Data Source [id number] 03/13/2020 07:44:40 PM EDT [facility] SPEC EXP DATE 03/21/2020PATI ENT ABO/Rh O POSITIVEANTIBODY SCREEN NEGATIVETESTING SITE PERFORMED AT [address] [address] Name Value Range Interpretation Code Description Data Sera rce(s) Supporting Document(s) TYPE AND SCREEN [facility] PATIENT ABO/Rh O POSITIVE ID Date Data Source [id number] 03/13/2020 03:58:34 PM EDT [facility] Name Value Range Interpretation Code Description Data Sera rce(s) Supporting Document(s) SODIUM 140 mmol/L (136-145) [facility] POTASSIUM 4.1 mmol/L (3.6-5.2) [facility] CHLORIDE 104 mmol/L (100-108) [facility] CO2 33 mmol/L (22-31) H [facility] ANION GAP 3 mmol/L (7-16) L [facility] UREA NITROGEN 11 mg/dL (7-24) [facility] CREATININE 1.02 mg/dL (0.80-1.30) [facility] BUN/CREAT RATIO 10.8 RATIO (10.0-20.0) [facility] GLUCOSE 85 mg/dL (70-99) [facility] CALCIUM 9.5 mg/dL (8.4-10.2) [facility] GFR >60 ml/min/1.73m2 (>59) [facility] GFR ( AMER) >60 ml/min/1.73m2 (>59) [facility] GFR INTERPRETATION [facility] --NORMAL KIDNEY FUNCTION OR MILD DISEASE - GFR >OR= 60CHRONIC KIDNEY DISEASE - GFR 15 - 59RENAL FAILURE - GFR <15 Est. GFR calculation based on the MDRDstudy equation, which assumes a steadystate for creatinine. Est. GFR should notbe used for medication dosing. ID Date Data Source [id number] 03/13/2020 03:36:51 PM EDT [facility] Name Value Range Interpretation Code Description Data Sera rce(s) Supporting Document(s) WBC 4.0 10*3/uL (4.1-11.0) L [facility] RBC 5.10 10*6/uL (4.60-6.10) [facility] HGB 15.9 g/dL (13.5-18.0) [facility] HCT 47.3 % (41.0-53.0) [facility] MCV 92.6 fL (80.0-95.0) [facility] MCH 31.1 pg (27.0-32.0) [facility] MCHC 33.6 g/dL (32.0-36.0) [facility] RDW 13.8 % (10.5-14.5) [facility] PLT 130 10*3/uL (150-450) L [facility] MPV 10.4 fL (7.1-10.7) [facility] ID Date Data Source [id number] 03/09/2020 02:03:44 PM [facility]T [facility]FORMATION[facility] MRN Name Date of Age Gend*PT [id number] Gallito Hinojosa 1995 25 years M ---PT Location Admission Date/Time Visit ID Attending Provider --- --- --- --- EPI ID CSN Admitting Pro vider [id number] ---Addended by: SUBHA BLAND on: 03/09/2020 02:03 PM Modules accepted: Orders Name Value Range Interpretation Code Description Data Sera rce(s) Supporting Document(s) Procedure Social History Code Duration Value Status Description Data Source(s ) Alcohol intake 03/02/2021 12:00:00 AM EDT Ex-drinker (finding) comp leted Ex- drinker (finding) [facility] Alcohol intake 11/19/2020 12:00:00 AM EDT Ex-drinker (finding) comp leted Ex- drinker (finding) [facility] Alcohol intake 11/16/2020 12:00:00 AM EDT Ex-drinker (finding) comp leted Ex- drinker (finding) [facility] Alcohol intake 09/22/2020 12:00:00 AM EDT Not Currently completed [facility] Cigarette pack-years 09/22/2020 12:00:00 AM EDT UNK completed [facility] Cigarettes smoked current (pack per day) - Reported 09/23/19 12:00:00 AM EDT UNK completed [facility] Smoking 09/22/2020 12:00:00 AM EDT Current every day smoker co mpleted Current every day smoker [facility] Alcohol intake 06/24/2020 12:00:00 AM EST Not Currently completed [facility] Cigarette pack-years 06/24/2020 12:00:00 AM EST UNK completed [facility] Cigarettes smoked current (pack per day) - Reported 06/24/19 12:00:00 AM EST UNK completed [facility] Smoking 06/24/2020 12:00:00 AM EST Current every day smoker co mpleted Current every day smoker [facility] Vital Signs ID Date Data Source UNK Name Value Range Interpretation Code Description Data Source(s) Heart rate 111 /min 111 /min [facility] ([facility]) 108, regular Systolic blood pressure--sitting 136 mm[Hg] 136 mm[Hg] [facility] ([facility]) Ra, large cuff Diastolic blood pressure--sitting 86 mm[Hg] 86 mm[Hg] [facility] ([facility]) Ra, large cuff Body weight 179.00 [lb_av] 179.00 [lb_av] MEDIRLANDA T ([facility]) in full uniform 8 lbs Body height 68 [in_i] 68 [in_i] [facility] 5'8" Body mass index (BMI) [Ratio] 27.2 kg/m2 27.2 k g/m2 [facility] ([facility]) [place] body weight 148 [lb_av] 148 [lb_av] MEDEN T ([facility], ) Systolic blood pressure 120 mm[Hg] 120 mm[Hg] M EDENT ([facility], ) Diastolic blood pressure 80 mm[Hg] 80 mm[Hg] [facility] ([facility] ) Heart rate 72 /min 72 /min [facility] ([facility]) Body height 67 [in_i] 67 [in_i] [facility] ([facility]) 5'7" Body weight 168.00 [lb_av] 168.00 [lb_av] MEDEN T ([facility]) Body mass index (BMI) [Ratio] 26.3 kg/m2 26.3 k g/m2 [facility] ([facility]) Body temperature 97.7 [degF] 97.7 [degF] [facility] ([facility]) Body height 66 [in_i] 66 [in_i] [facility] ([facility]) 5'6" Body weight 169.50 [lb_av] 169.50 [lb_av] MEDEN T ([facility]) Body mass index (BMI) [Ratio] 27.4 kg/m2 27.4 k g/m2 [facility] ([facility]) Systolic blood pressure 118 mm[Hg] 118 mm[Hg] [facility] Diastolic blood pressure 66 mm[Hg] 66 mm[Hg] [facility] Heart rate 101 /min 101 /min [facility] Oxygen saturation in Arterial blood by Pulse oximetry 99 % 99 % [facility] Body temperature 36.5 Delphine 36.5 Delphine [facility] Respiratory rate 18 /min 18 /min [facility] Body weight 76.794 kg 76.794 kg [facility] Body mass index (BMI) [Ratio] 26.52 kg/m2 26.52 kg/m2 [facility] Heart rate 85 /min 85 /min [facility] Systolic blood pressure 121 mm[Hg] 121 mm[Hg] [facility] Diastolic blood pressure 78 mm[Hg] 78 mm[Hg] [facility] Body temperature 36.28 Delphine 36.28 Delphine [facility] Respiratory rate 16 /min 16 /min [facility] Body height 170.2 cm 170.2 cm [facility] Body weight 76.658 kg 76.658 kg [facility] Body mass index (BMI) [Ratio] 26.47 kg/m2 26.47 kg/m2 [facility] Oxygen saturation in Arterial blood by Pulse oximetry 100 % 100 % [facility] Body weight 175.00 [lb_av] 175.00 [lb_av] MEDEN T ([facility]) in full uniform 8 lbs Body height 68 [in_i] 68 [in_i] [facility] ([facility]) 5'8" Body mass index (BMI) [Ratio] 26.6 kg/m2 26.6 k g/m2 [facility] ([facility]) Systolic blood pressure--sitting 124 mm[Hg] 124 mm[Hg] [facility] ([facility]) Ra, large cuff Diastolic blood pressure--sitting 72 mm[Hg] 72 mm[Hg] [facility] ([facility]) Ra, large cuff Body weight 173.00 [lb_av] 173.00 [lb_av] MEDEN T ([facility]) in full uniform 6 lbs Diastolic blood pressure--sitting 72 mm[Hg] 72 mm[Hg] [facility] ([facility]) Ra, large cuff Body height 68 [in_i] 68 [in_i] [facility] ([facility]) 5'8" Body mass index (BMI) [Ratio] 26.3 kg/m2 26.3 k g/m2 [facility] ([facility]) Systolic blood pressure--sitting 122 mm[Hg] 122 mm[Hg] [facility] ([facility]) Ra, large cuff Body mass index (BMI) [Ratio] 26.1 kg/m2 26.1 k g/m2 [facility] ([facility]) Body weight 172.00 [lb_av] 172.00 [lb_av] MED[facility] T ([facility]) in full uniform Body height 68 [in_i] 68 [in_i] [facility] ([facility]) 5'8" Systolic blood pressure--sitting 118 mm[Hg] 118 mm[Hg] [facility] ([facility]) Ra, large cuff Diastolic blood pressure--sitting 78 mm[Hg] 78 mm[Hg] [facility] ([facility]) Ra, large cuff Heart rate 72 /min 72 /min [facility] ([facility]) regular Respiratory rate 16 /min 16 /min [facility] ( [facility]) nonlabored Heart rate 71 /min 71 /min [facility] ([facility]) Body weight 175.00 [lb_av] 175.00 [lb_av] MEDEN T ([facility]) Body height 68 [in_i] 68 [in_i] [facility]) 5'8" Body mass index (BMI) [Ratio] 26.6 kg/m2 26.6 k g/m2 [facility] ([facility]) Systolic blood pressure--sitting 118 mm[Hg] 118 mm[Hg] [facility] ([facility]) large cuff, Ra Diastolic blood pressure--sitting 80 mm[Hg] 80 mm[Hg] [facility] large cuff, Ra Patient Treatment Plan of Care Planned Activity Planned Date Details Description Data Source (s) Flecainide Acetate 50 MG Oral Tablet 03/03/2021 12:00:00 AM EDT [facility] rivaroxaban 20 MG Oral Tablet 12/23/2020 12:00:00 AM EDT [facility] normal saline flush 0.9 % injection 3 mL 11/19/2020 02:00:00 PM EDT [facility] normal saline flush 0.9 % injection 3 mL 11/19/2020 02:00:00 PM EDT [facility] normal saline flush 0.9 % injection 3 mL 11/19/2020 02:00:00 PM EDT [facility] fentaNYL Citrate (PF) (SUBLIMAZE) injection 25 mcg 11/19/2020 01 :20:51 PM EDT [facility] HYDROmorphone (DILAUDID) injection 0.5 mg 11/19/2020 01:20:51 PM ED T [facility] Albuterol 0.833 MG/ML / Ipratropium Upperglade 0.167 MG/M L Inhalant Solution 11/19/2020 01:20:51 PM EDT [facility] 10 ML Atropine Sulfate 0.1 MG/ML Prefilled Syringe 11/19/2020 01 :20:50 PM EDT [facility] rivaroxaban 20 MG Oral Tablet 03/24/2020 12:00:00 AM EDT [facility]
[2021-04-25] MEDS ORDERED: LIDOCAINE 5% (LIDODERM) PATCH TD ONE (12:10)
[2021-04-25] MEDS ORDERED: NS 1,000 ML IV ONE (12:10)
[2021-04-25] MEDS ORDERED: CYCLOBENZAPRINE 5MG TABLET PO ONE (12:10)
--- OUTSIDE RECORDS SUMMARY | 2021-04-25 12:12 | CCD ---
Author Author [facility] Organization [facility] Address Unknown Phone Unavailable Care Team Providers Care Flight Inspector Name Role Phone Deny, L Olimpia PA [...] Deny, L Olimpia PA Unavailable Unavailable UNKNOWN, [facility] Unavailable Unavailable Rodney Bermudez MD Unavailable Unavailable Rodney Bermudez MD Unavailable Unavailable Rodney Bermudez MD Unavailable Unavailable Rodney Bermudez MD Unavailable Unavailable Rodney Bermudez MD Unavailable Unavailable Rodney Bermudez MD Unavailable Unavailable Estrella, L Scooter ULLOA Unavailable Unavailable Estrella, L Scooter ULLOA Unavailable Unavailable Estrella, L Scooter ULLOA Unavailable Unavailable Estrella, L Scooter ULLAO Unavailable Unavailable Estrella, L Scooter ULLOA Unavailable Unavailable Estrella, Ginny Helms MD Unavailable Unavailable Estrella, Ginny Helms MD Unavailable Unavailable Estrella, Ginny Helms MD Unavailable Unavailable Esterlla, L Scooter ULLOA Unavailable [...] Peck PA-C Unavailable Unavailable ZABOROWSKI, J SUBHA [employer]PER[employer] Unavailable Unavailable ZABOROWSKI, J SUBHA [employer]PERVIS[employer] Unavailable Unavailable ZABOROWSKI, J SUBHA SUPERVIS[employer] Unavailable Unavailable ZABOROWSKI, J SUBHA [employer]PER[employer] Unavailable Unavailable ZABOROWSKI, J SUBHA SUPERVIS[employer] Unavailable Unavailable ZABOROWSKI, J SUBHA SUPERVIS[employer] Unavailable Unavailable ZABOROWSKI, J SUBHA SUPERVIS[employer] Unavailable Unavailable ZABOROWSKI, J SUBHA SUPERVIS[employer] Unavailable Unavailable ZABOROWSKI, J SUBHA SUPERVIS[employer] Unavailable Unavailable ZABOROWSKI, J SUBHA SUPERVIS[employer] Unavailable Unavailable ZABOROWSKI, J SUBHA SUPERVIS[employer] Unavailable Unavailable ZABOROWSKI, J SUBHA SUPERVIS[employer] Unavailable Unavailable ZABOROWSKI, J SUBHA SUPERVIS[employer] Unavailable Unavailable ZABOROWSKI, J SUBHA SUPERVIS[employer] Unavailable Unavailable ZABOROWSKI, J SUBHA SUPERVIS[employer] Unavailable Unavailable ZABOROWSKI, J SUBHA SUPERVIS[employer] Unavailable Unavailable ZABOROWSKI, J SUBHA SUPERVIS[employer] Unavailable Unavailable ZABOROWSKI, J SUBHA SUPERVIS[employer] Unavailable Unavailable ZABOROWSKI, J SUBHA SUPERVIS[employer] Unavailable Unavailable ZABOROWSKI, J SUBHA SUPERVIS[employer] Unavailable Unavailable ZABOROWSKI, J SUBHA SUPERVIS[employer] Unavailable Unavailable ZABOROWSKI, J SUBHA SUPERVISOR [employer] Unavailable Unavailable ZABOROWSKI, J SUBHA SUPERVISOR [employer] Unavailable Unavailable ZABOROWSKI, J SUBHA SUPERVIS[employer] Unavailable Unavailable ZABOROWSKI, J SUBHA SUPERVIS[employer] Unavailable Unavailable ZABOROWSKI, J SUBHA SUPERVIS[employer] Unavailable Unavailable ZABOROWSKI, J SUBHA SUPERVIS[employer] Unavailable Unavailable ZABOROWSKI, J SUBHA SUPERVISOR [employer] Unavailable Unavailable ZABOROWSKI, J SUBHA SUPERVISOR [employer] Unavailable Unavailable ZABOROWSKI, J SUBHA SUPERVISOR [employer] Unavailable Unavailable ZABOROWSKI, J SUBHA SUPERVIS[employer] Unavailable Unavailable ZABOROWSKI, J SUBHA SUPERVIS[employer] Unavailable Unavailable ZABOROWSKI, J SUBHA SUPERVISOR [employer] Unavailable Unavailable ZABOROWSKI, J SUBHA SUPERVIS[employer] Unavailable Unavailable ZABOROWSKI, J SUBHA SUPERVIS[employer] Unavailable Unavailable ZABOROWSKI, J SUBHA SUPERVIS[employer] Unavailable Unavailable ZABOROWSKI, J SUBHA SUPERVIS[employer] Unavailable Unavailable ZABOROWSKI, J SUBHA SUPERVISOR [employer] Unavailable Unavailable ZABOROWSKI, J SUBHA SUPERVIS[employer] Unavailable Unavailable ZABOROWSKI, J SUBHA SUPERVISOR [employer] Unavailable Unavailable ZABOROWSKI, J SUBHA SUPERVISOR [employer] Unavailable Unavailable ZABOROWSKI, J SUBHA SUPERVISOR [employer] Unavailable Unavailable ZABOROWSKI, J SUBHA SUPERVISOR [employer] Unavailable Unavailable ZABOROWSKI, J SUBHA SUPERVISOR [employer] Unavailable Unavailable ZABOROWSKI, J SUBHA SUPERVISOR [employer] Unavailable Unavailable ZABOROWSKI, J SUBHA SUPERVIS[employer] Unavailable Unavailable ZABOROWSKI, J SUBHA SUPERVIS[employer] Unavailable Unavailable Raz BLAND SUBHA SUPERVISOR [employer] Unavailable Unavailable Al Mudamgha, A Ward ULLOA [...] Ali Unavailable Unavailable Al Mudamgha, A Ward MD [...] A Ali MD Unavailable Unavailable Georgette, Itzel SUPERVIS[employer] Unavailable Unavailable Georgette, Itzel SUPERVIS[employer] Unavailable Unavailable Georgette, Itzel SUPERVISOR [employer] Unavailable Unavailable Georgette, Itzel SUPERVISOR [employer] Unavailable Unavailable Georgette, Itzel SUPERVISOR [employer] Unavailable Unavailable Georgette, Itzel SUPERVISOR [employer] Unavailable Unavailable Georgette, Itzel SUPERVISOR [employer] Unavailable Unavailable Georgette, Itzel SUPERVIS[employer] Unavailable Unavailable CHANLIECCO, C GIORGI MD Unavailable [...] is protected by Article 27-F of the [facility] Public Health law. If you continue you may have access to information: Regarding HIV / AIDS; Provided by facilities licensed or operated by the [facility] Office of Mental Health; or Provided by the [facility] Office for People With Developmental Disabilities. If such information is present, then the following [facility] mandated warning applies: This information [...] law may result in a fine or long-term sentence or both. A general authorization for the release of medical or other information is NOT sufficient authorization for further disc losure. Allergies and Adverse Reactions Type Description Substance Reaction Status Data Source(s ) Propensity to adverse reactions AVOCADO avocado allergen ic extract Anaphylaxis High Active [facility] High Propensity to adverse reactions ALMOND MEAL [place] Meal Anaphylax is High Active [facility] High Family History Family Member Name Family Member Gender Family Member Status Date o f Status Description Data Source(s) Unknown Male Problem [facility] ([facility]) Encounters Encounter Providers Location Date Indications Data Source(s ) Outpatient Attender: OFELIA STEINBERG Main Office 03/25/2021 0 3:00:00 PM EDT [facility] ([facility]) Outpatient Attender: Ward Holt MD BF-BF 03/03/2021 12:00:0 0 AM EDT [facility] Emergency Attender: Rodney Bermudez MDConsultant: ELIZABETH UNKNOWN 02/23/2021 08:45:00 AM EDT - 02/23/2021 09:55:00 AM EDT [facility] Patient discharged. Outpatient Attender: Ward Holt MD BF-BF[facility] 02/17/2021 07:55:5 7 AM EDT [facility] Outpatient Attender: Scooter Estrella MD Physical Therapy 01/18/2021 0 9:15:00 AM [facility]T [facility] Emergency Attender: Rodney Bermudez MD 01/17/2021 02:19:00 PM EDT - 01/17/2021 06:26:00 PM EDT [facility] Patient discharged. Emergency Attender: GIORGI MENJIVAR MD 01/12/2021 11:26:00 AM EDT - 01/12/2021 12:47:00 PM EDT [facility] Patient discharged. Outpatient [facility] 12/23/2020 12:00:00 AM EDT [facility] Outpatient Attender: Joy Peck PA-C BF-[facility] 12:00:00 AM EDT - 12/10/2020 12:14:04 PM EDT [facility] Outpatient Attender: Ward Holt MD Admitter: Ward Holt MDReferrer: Itzel Palomino SUPERVIS[employer] ES1-SJ.[facility] 11/19/2020 10:35:00 AM EDT - 11/19/2020 04:00:00 PM EDT [facility] Patient discharged. Outpatient Attender: Ward Holt MDReferrer: Ward Cisse MD MOB-MOB.PAT 11/16/2020 08:33:23 AM EDT - 11/16/2020 09:11:20 AM EDT [facility] Outpatient Referrer: Ward Holt MD MOB-MOB.PAT 11/16/2020 1 2:00:00 AM EDT [facility] Outpatient [id number] 10/30/2020 08:14:38 AM EDT [facility] Outpatient [id number] 10/21/2020 03:27:49 PM EDT [facility] Outpatient [id number] 10/16/2020 03:52:09 PM EDT [facility] Outpatient Attender: Ward Holt MD BF-BF.[facility] 09/23/2020 07:57:5 3 AM EDT [facility] Outpatient [id number] 09/17/2020 03:27:44 PM EDT [facility] Outpatient [id number] 09/01/2020 01:54:08 PM EDT [facility] Outpatient Attender: OFELIA STEINBERG Main Office 08/11/2020 1 1:45:00 AM EST [facility] ([facility]) Outpatient Attender: OFELIA STEINBERG Main Office 08/03/2020 0 9:15:00 AM EST [facility] ([facility]) Outpatient Attender: Ward Holt MD BF[facility] 06/24/2020 12:00:0 0 AM EST [facility] Outpatient Attender: OFELIA STEINBERG Main Office 06/15/2020 0 8:15:00 AM EST [facility] ([facility]) Outpatient BF-[facility] 04/30/2020 12:00:00 AM EST [facility] Outpatient Attender: SUBHA BLAND NP BF-BF 04/02/2020 12:00:0 0 AM EDT [facility] Outpatient Attender: Ward Holt MDAdmitter: Ward Cisse MD ES1-SJ.[facility] 03/20/2020 07:56:00 AM EDT - 03/20/2020 01:57:00 PM EDT [facility] Patient discharged. Outpatient Attender: Oilmpia STEINBERG Main Office 03/16/2020 09:15:0 0 AM EDT [facility] ([facility]) Outpatient Referrer: Ward Holt MD MOB-MOB.PAT 09/2019 11:08:31 AM EDT - 03/15/2020 11:08:36 AM EDT [facility] Outpatient Referrer: Ward Holt MD 03/13/2020 09:52:0 7 AM EDT [facility] Outpatient Attender: Ward Holt MDReferrer: Ward Cisse MD MOB-MOB.PAT 03/13/2020 08:53:42 AM EDT - 03/13/2020 09:53:39 AM EDT [facility] BF-BF 03/09/2020 02:03:44 PM EDT [facility] Outpatient Referrer: Ward Holt MD 03/05/2020 08:13:2 2 AM EDT [facility] Immunizations Vaccine Date Status Description Data Source(s) 10/27/2020 12:00:00 AM EDT completed <td I D="[id number]">Covid-19 (Pfizer)</td><td>10/27/2020, 08/25/2020</td><td></td> [facility] COVID-19 VACCINE Pfizer 10/27/2020 12:00:00 AM EDT completed NYSIIS Vaccine Series Complete: YESThis Data wa s Submitted to [facility] Via [employer]. 08/25/2020 12:00:00 AM EDT completed <td I D="[id number]">Covid-19 (Pfizer)</td><td>10/27/2020, 08/25/2020</td><td></td> [facility] COVID-19 VACCINE Pfizer 08/25/2020 12:00:00 AM EDT completed [facility]SIIS Vaccine Series Complete: YESThis Data wa s Submitted to [facility] [employer]. Medications Medication Brand Name Start Date Product Form Dose Route Admi nistrative Instructions Pharmacy Instructions Status Indications Reaction Description Data Source(s) gabapentin 300 MG Oral Capsule Gabapentin 04/14/2021 12:00:00 AM EDT ORAL active [facility] ([facility]) Mirtazapine 7.5 MG Oral Tablet Mirtazapine 04/14/2021 12:00:00 AM EDT ORAL active [facility] ([facility]) Omeprazole 20 MG Delayed Release Oral Capsule Omeprazole 03/24/2021 12:00:00 AM EDT ORAL completed [facility] ([facility]) duloxetine 30 MG Delayed Release Oral Capsule [Cymbalta] Cym bishop 03/24/2021 12:00:00 AM EDT ORAL active M [facility] ([facility]) gabapentin 600 MG Oral Tablet Gabapentin 03/24/2021 12:00:00 AM EDT ORAL completed [facility] ([facility]) Flecainide Acetate 50 MG Oral Tablet flecainide (TAMBO COR) 50 MG tablet flecainide (TAMBOCOR) 50 MG tablet 03/03/2021 12:00:00 AM EDT 50 mg Oral active Take 1 tablet (50 mg total) by m outh 2 (two) times a day [facility] 8 HR Acetaminophen 650 MG Extended Release Oral Tablet [Tyle nol] Tylenol 8 Hour 02/01/2021 12:00:00 AM EDT active [facility] ([facility]) 24 HR metoprolol succinate 200 MG Extended Release Ora l Tablet Metoprolol Succinate ER 01/21/2021 12:00:00 AM EDT ORAL completed [facility] ([facility]) rivaroxaban 20 MG Oral Tablet rivaroxaban (Xarelto) 20 MG TABS rivaroxaban (Xarelto) 20 MG TABS 12/23/2020 12:00:00 AM EDT 20 mg Oral active Take 1 tablet (20 mg total) by mouth daily [facility] normal saline flush 0.9 % injection 3 mL [id number] 11/19/2020 02:00:00 PM EDT 3 mL Intravenous active 3 mL , Intravenous, Every 8 hours (scheduled), First dose on Kendra 11/19/20 at 1400, PACU (only)
flush per protocol, D/C Main IV fluid if appropriate
[facility] Medication administered onsite normal saline flush 0.9 % injection 3 mL [id number] 11/19/2020 02:00:00 PM EDT 3 mL Intravenous active 3 mL , Intravenous, Every 8 hours (scheduled), First dose on Kendra 11/19/20 at 1400, Pre-op
Rapid push positive pressure flushing shall be performed with a 10 cc normal saline syringe to check the PATENCY of a PIV site prior to any infusion therapy initiation unless resistance is met.
[facility] Medication administered onsite normal saline flush 0.9 % injection 3 mL [id number] 11/19/2020 02:00:00 PM EDT 3 mL Intravenous active 3 mL , Intravenous, Every 8 hours (scheduled), First dose on Kendra 11/19/20 at 1400, Pre-op
Rapid push positive pressure flushing shall be performed with a 10 cc normal saline syringe to check the PATENCY of a PIV site prior to any infusion therapy initiation unless resistance is met.
[facility] Medication administered onsite 1 ML Ketorolac Tromethamine 30 MG/ML Car tridge ketorolac (TORADOL) injection 30 mg ketorolac (TORADOL) injection 30 mg 11/19/2020 01:46:43 PM EDT 30 mg Intravenous completed 30 mg, Intrav enous, Once as needed, severe pain (7-10), Starting on Kendra 11/19/20 at 1346, For 1 dose [facility] Medication administered onsite HYDROmorphone (DILAUDID) injection 0.5 mg [id number] 11/19/2020 01:20:51 PM EDT 0.5 mg Intravenous active 0.5 mg, Intravenous, Every 5 min PRN, severe pain (7-10), Starting on Kendra 11/19/20 at 1320, For 5 doses, PACU (only) [facility] Medication administered onsite ondansetron (ZOFRAN) injection 4 mg [id number] 11/19/2020 01:20:5 1 PM EDT 4 mg Intravenous completed 4 mg, In travenous, Once as needed, nausea, vomiting, Starting on Kendra 11/19/20 at 1320, For 1 dose, PACU (only)
If not given in last 4 hours
[facility] Medication administered onsite Albuterol 0.833 MG/ML / Ipratropium Brom maxine 0.167 MG/ML Inhalant Solution ipratropium-albuterol (DUO-NEB) 0.5-2.5 mg/mL nebulizer solution 3 mL ipratropium-albuterol (DUO-NEB) 0.5-2.5 mg/mL nebulizer solution 3 mL 11/19/2020 01:20:51 PM EDT 3 mL Inhalation active 3 mL, Inhalation, Once as needed, shortness of breath, Starting on Kendra 11/19/20 at 1320, For 1 dose, PACU (only) [facility] Medication administered onsite fentaNYL Citrate (PF) (SUBLIMAZE) injection 25 mcg [id number] 11/19/2020 01:20:51 PM EDT 25 ug Intravenous active 25 mcg, Intravenous, Every 5 min PRN, moderate pain (4 to 6), Starting on Kendra 11/19/20 at 1320, For 5 doses, PACU (only) [facility] Medication administered onsite 10 ML Atropine [...] or 0.04 mg/kg. Max of 6 doses
[facility] Medication administered onsite protamine injection [id number] 11/19/2020 12:33:22 PM EDT active As needed, Starting on Kendra 11/19/20 at 1233, Intra-Proc edure [facility] Medication administered onsite 1 ML heparin sodium, porcine 1000 UNT/ML Injection hep mikael (porcine) injection heparin (porcine) injection 11/19/2020 12:01:54 PM EDT active As needed, Starting on Kendra 11/19/20 at 1201, Intra-Procedure [facility] Medication administered onsite lidocaine (PF) (XYLOCAINE-MPF) 1 % injection [id number] 03/2021 11:55:13 AM EDT active As needed, Start ing on Kendra 11/19/20 at 1155, Intra-Procedure [facility] Medication administered onsite 24 HR metoprolol succinate 100 MG Extended Release Ora l Tablet Metoprolol Succinate ER 08/28/2020 12:00:00 AM EDT ORAL completed [facility] ([facility]) Omeprazole 20 MG Delayed Release Oral Capsule Omeprazole 08/03/2020 12:00:00 AM EST ORAL active [facility] ([facility]) Metoprolol Tartrate 50 MG Oral Tablet Metoprolol Tartrate 12:00:00 AM EST ORAL completed [facility] ([facility]) rivaroxaban 20 MG Oral Tablet [Xarelto] Xarelto 06/14/2020 12:00:0 0 AM EST ORAL active [facility] ([facility]) rivaroxaban 20 MG Oral Tablet rivaroxaban (XARELTO) 20 MG TABS rivaroxaban (XARELTO) 20 MG TABS 03/24/2020 12:00:00 AM EDT 20 mg Oral active Take 1 tablet (20 mg total) by mouth daily To start after procedure --discharge nurse to inform when to start. [facility] Insurance Providers Payer name Policy type / Coverage type Policy ID Covered green party ID Covered green party's relationship to lópez Policy López Plan Information [id number] [phone] [id number] Ashley [id number] Ashley [id number] Ashley [id number] INSURANCE COVID-19 COVID Ashley C OVID INSURANCE COVID-19 [id number] [facility] ([facility] [id number] Self [id number] [facility] HUMANA - O/P [id number] 18 [id number] [facility] - PHYSICIAN [id number] 18 [id number] [facility] ACTIVE DUTY [id number] SP [id number] [facility] ([facility]) [id number] Self [id number] [facility] ACTIVE DUTY [id number] SP [id number] Problems, Conditions, and Diagnoses Code Display Name Description Problem Type Effective Dates Data Source(s) Z7901 jail (current) use of anticoagulant s jail (current) use of anticoagulants Diagnosis 02/23/2021 08:45:00 AM EDT [facility] G27699 Nicotine dependence, cigarettes, uncompl icated Nicotine dependence, cigarettes, uncomplicated Diagnosis 02/23/2021 08:45:00 AM EDT [facility] R9431 Abnormal electrocardiogram [ECG] [EKG] A bnormal electrocardiogram [ECG] [EKG] Diagnosis 02/23/2021 08:45:00 AM T [facility] R002 Palpitations Palpitations Diagnosis 02/23/2021 08:45:00 A M EDT [facility] M5442 Lumbago with sciatica, left side Lumbago with sc iatica, left side Diagnosis 02/23/2021 08:45:00 AM [facility] M545 Low back pain Low back pain Diagnosis 02/23/2021 08:45:00 AM T [facility] E05732 Unspecified place in unspeci fied non-institutional (private) residence as the place of occurrence of the external cause Unspecified place in unspecified non-institutional (private) residence as the place of occurrence of the external cause Diagnosis 01/17/2021 02:19:00 PM EDT [facility] [id number] Fall (on) (from) unspecified stairs and steps, initial encounter Fall (on) (from) unspecified stairs and steps, initial encounter Diagnosis 01/17/2021 02:19:00 PM EDT [facility] M5416 Radiculopathy, lumbar region Radiculopathy, lumbar reg ion Diagnosis 01/17/2021 02:19:00 PM EDT [facility] [id number] Personal history of nicotine dependence Personal history of nicotine dependence Diagnosis 01/12/2021 11:26:00 AM EDT [facility] G8929 Other chronic pain Other chronic pain Diagnosis 08/2020 11:26:00 AM EDT [facility] I48.91 Unspecified atrial fibrillation Unspecified atri al fibrillation Diagnosis 12/23/2020 03:35:03 PM EDT [facility] I48.0 Paroxysmal atrial fibrillation Paroxysmal atrial fibri llation Diagnosis 12/10/2020 11:07:56 AM EDT [facility] U07.1 COVID-19 COVID-19 Diagnosis 11/16/2020 12:00:00 AM ED T [facility] [id number] Lumbosacral radiculopathy Lumbosacral radiculopathy Pr oblem 02/01/2021 12:00:00 AM EDT [facility] ([facility]) [id number] Chronic low back pain Chronic low back pain Problem 02/01/2021 12:00:00 AM EDT [facility] ([facility]) I48.91 Atrial fibrillation Atrial fibrillation [id number] 09/29/2020 12:00:00 AM EDT [facility] R06.02 Dyspnea Dyspnea Problem 08/03/2020 12:00:00 AM ES T [facility] ([facility]) R55 Syncope and collapse Syncope and collapse Problem 06/15/2020 12:00:00 AM EST [facility] ([facility]) R07.2 Precordial pain Precordial pain Problem 06/15/2020 12:0 0:00 AM EST [facility] ([facility]) Surgeries/Procedures Procedure Description Date Indications Data Source(s) Implantable Loop Recorder System, Review And Report 04/15/2021 12:00:00 AM EDT [facility] ([facility]) ECG ROUTINE ECG W/LEAST 12 LDS W/I&R 03/25/2021 12:00: 00 AM EDT [facility] ([facility]) OFFICE OUTPATIENT VISIT 25 MINUTES 03/25/2021 12:00:00 AM EDT [facility] ([facility]) Implantable Loop Recorder System, Review And Report 03/12/2021 12:00:00 AM EDT [facility] ([facility]) Implantable Loop Recorder System, Review And Report 02/08/2021 12:00:00 AM EDT [facility] ([facility]) Needle electromyography, each extremity, with related paraspinal areas, when performed, done with nerve conduction, amplitude and latency/velocity study; complete, five or more muscles studied, innervated by three or more nerves or four or more spinal levels (list separately in addition to the code for primary procedure). 02/03/2021 12:00:00 AM EDT [facility] T ([facility] ) Needle electromyography, each extremity, with related paraspinal areas, when performed, done with nerve conduction, amplitude and latency/velocity study; complete, five or more muscles studied, innervated by three or more nerves or four or more spinal levels (list separately in addition to the code for primary procedure). 02/03/2021 12:00:00 AM EDT [facility] T ([facility] ) 96640 Nerve conduction studies 13 or more studies NEW 201202/03/2021 12:00:00 AM EDT [facility] ([facility] X-Ray Spine Lumbosacral Bending Only 2 Or 3 Views 01/18/2021 12:00:00 AM EDT [facility] ([facility] OFFICE OUTPATIENT NEW 45 MINUTES 01/18/2021 12:00:00 A M EDT [facility] ([facility]) Implantable Loop Recorder System, Review And Report 01/06/2021 12:00:00 AM EDT [facility] ([facility] Implantable Loop Recorder System, Review And Report 12/03/2020 12:00:00 AM EDT [facility] ([facility]) EP STUDY <td>EP STUDY</td><td>Routine </td><td>11/19/2020 12:32 PM EDT</td><td> Atrial fibrillation, unspecified type</td><td></td> 11/19/2020 12:32:27 PM EDT Atrial fibrillation, unspecified type [facility] Atrial fibrillation, unspecified type ECG ROUTINE ECG W/LEAST 12 LDS TRCG ONLY W/O I&R <td>E CG 12- LEAD</td><td>Routine</td><td>11/16/2020 9:11 AM EDT</td><td> Atrial fibrillation, unspecified type</td><td></td> 11/16/2020 09:11:02 AM EDT Atrial fibrillation, unspecified type [facility] Atrial fibrillation, unspecified type BLOOD COUNT COMPLETE AUTOMATED <td>CBC</td><td>Routine </td><td>11/16/2020 9:10 AM EDT</td><td> Atrial fibrillation, unspecified type</td><td> </td> 11/16/2020 09:10:00 AM EDT Atrial fibrillation, unspecified type [facility] Atrial fibrillation, unspecified type BLOOD TYPING ABO <td>TYPE AND SCREEN</td><td> Routine</td><td>11/16/2020 9:10 AM EDT</td><td> Atrial fibrillation, unspecified type</td><td> </td> 11/16/2020 09:10:00 AM EDT Atrial fibrillation, unspecified type [facility] Atrial fibrillation, unspecified type BASIC METABOLIC PANEL CALCIUM TOTAL <td>BASIC METABOLI C PANEL</td><td>Routine</td><td>11/16/2020 9:10 AM EDT</td><td> Atrial fibrillation, unspecified type</td><td> </td> 11/16/2020 09:10:00 AM EDT Atrial fibrillation, unspecified type [facility] Atrial fibrillation, unspecified type Implantable Loop Recorder System, Review And Report 10/27/2020 12:00:00 AM EDT [facility] ([facility]) Implantable Loop Recorder System, Review And Report 09/24/2020 12:00:00 AM EDT [facility] ([facility]) OFFICE OUTPATIENT VISIT 15 MINUTES 08/11/2020 12:00:00 AM EST [facility] ([facility]) OFFICE OUTPATIENT VISIT 15 MINUTES 08/03/2020 12:00:00 AM EST [facility] ([facility]) XTRNL ECG < 48 HR RECORDING 07/20/2020 12:00:00 AM EST [facility] ([facility]) XTRNL ECG CONTINUOUS RHYTHM PHYS REVIEW&INTERPJ 2020 12:00:00 AM EST [facility] ([facility]) ECHO TTHRC R-T 2D W/WOM-MODE COMPL SPEC&COLR DOP 07/16 12:00:00 AM EST [facility] ([facility]) CV STRS TST XERS&/OR RX CONT ECG PHYS SI&R 07/09/2020 12:00:00 AM EST [facility] ([facility]) ECG ROUTINE ECG W/LEAST 12 LDS W/I&R 06/15/2020 12:00: 00 AM EST [facility] ([facility]) OFFICE OUTPATIENT VISIT 25 MINUTES 06/15/2020 12:00:00 AM EST [facility] ([facility]) ECG ROUTINE ECG W/LEAST 12 LDS W/I&R 03/16/2020 12:00: 00 AM EDT [facility] ([facility]) Results ID Date Data Source [id number] 03/03/2021 12:34:28 PM EDT [employer] [facility] ClinicPATIE NT INFORMATIONPatient MRN Name Date of Age Gend*PT [id number] Gallito Hinojosa 1995 26 years M ---PT Location Admission Date/Time Visit ID Attending Provider --- --- --- --- EPI ID CSN Admitting Provider [id number] ---[facility] [id number] [facility], [address] (First Floor)[place], [place] [address]Na.: Fax: Yatient: Gallito Camargo : 1995Date: 03/03/21CARDIOLOGY TELEMEDICINE VISITPatient was identified by name and date of .Verbal consent was obtained from the patient for this telemedicine visit.Patient is aware of the risks, limitations, and benefits of a telemedicinevisit.This telemedicine assessment was conducted remotely with the assistance ofCojoin communication technology. Telephone Only Codes 75734: 21-30 minutesof medical discussion: Telephone Only .Subjective:Gallito aCmargo is 26 years male with atrial fibrillationHISTORY [...] benefitsFollow Up 6 monthsSignature: Ward Durán MD, [facility], [facility]ITALCardiac Electrophysiology and Arrhythmia ServiceDate: March 03, 2021Time: 12:29 PMThis document or parts of this document, were dictated using CloudEndureware. A reasonable attempt at proofreading has been made to minimize errors.Please call with any questions or corrections. Name Value Range Interpretation Code Description Data Sera rce(s) Supporting Document(s) ID Date Data Source [id number] 02/23/2021 08:07:00 [place] [address] RESPIRATORY CARE REPORT ==== ---------NAME------- NUMBER SEX AGE ADMIT DISC. XRAY# F/C TYPETALATANBAPTMLEANI GALLITO Orta [id number] M 26 02/23/21 02/23/21 [id number] SB4 E/R DATE OF : 1995 M/R# [id number] #: [id number] VT-04 LOCATION: EMERGENCY DEPT EKG 28422 COMP LETE:02/23/21 15:13 [place] [address] PHYSICIAN: ANDREE Gallagher Name Value Range Interpretation Code Description Data Sera rce(s) Supporting Document(s) ID Date Data Source [id number] 02/23/2021 08:45:00 AM EDT [facility] 1 OrderSheet [facility] Emergency Department [address] [place] [address] Phone #: ext- [phone] 02/23/2021 08:44 Patient: GALLITO HERNANDEZ Sex: M : 1995 Age: 26yWEIGHT:73.4 kg (S) HEIGHT:67 inches (S) BMI:25.4ALLERGIES: Austin (Diagnostic), Avocado (Diagnostic)CHIEF COMPLAINT: back pain, chronic [...] rce(s) Supporting Document(s) ID Date Data Source [id number] 02/23/2021 08:45:00 AM EDT [facility] 1 Medication Reconciliation Report [facility] Emergency Department [address] [place] [address] Phone #: ext- [phone] 02/23/2021 08:44 Patient: GALLITO HERNANDEZ Sex: M : 1995 Age: 26yWeight: 73.4 kgHeight/Length: 67 in.BMI: 25.4ALLERGIES: Austin (Diagnostic), Avocado (Diagnostic)The patient's Home Medications are [...] rce(s) Supporting Document(s) ID Date Data Source [id number] 02/23/2021 08:45:00 AM EDT [facility] 1 Medication Administration Record [facility] Emergency Department [address] [place] [address] Phone #: ext [phone] 02/23/2021 08:44 Patient: GALLITO HERNANDEZ Sex: M : 1995 Age: 26yWeight: 73.4 kgHeight/Length: 67 inBMI: 25.4ALLERGIES: Austin (Diagnostic), Avocado (Diagnostic) Date/Time Medication Administered Medication OrderedGiven LIDODERM PATCH (LIDOCAINE) Lidoderm Patch Topical (Patch 509:42 02/23/2021 Dose: 1 patch Ointment Transdermal %) 1 Patch (NOW x1, On for 12Terry LILI Sampson hours, off for 12 hours.)Given MOTRIN [PO] (IBUPROFEN) Motrin 600 mg PO X1 dose: 00859:42 02/23/2021 Dose: 600 mg Tablets PO mg (NOW x1)Hema Sampson RN Name Value Range Interpretation Code Description Data Sera rce(s) Supporting Document(s) ID Date Data Source [id number] 02/23/2021 08:45:00 AM EDT [facility] 1 General Instructions [facility] Emergency Department [address] [place] [address] Phone #: ext- [phone] 02/23/2021 08:44 Patient: [...] verbalized by patient.Follow- up with: [facility] [place] [facility], , , [address], , [place], [address] Follow up in three days if not well. Call for an appointment. Reason for referral: evaluation. ADDITIONAL INFORMATIONSciatica 2 General Instructions [facility] Emergency Department [address] [place] [address] Phone #: ext- [phone] 02/23/2021 08:44 Patient: [...] for yourself at home: 3 General Instructions [facility] Emergency Department [address] [place] [address] Phone #: ext- [phone] 02/23/2021 08:44 Patient: [...] or swelling over your back or spine [employer]. [address] [place] [address]. All rights reserved. This information is not intended as asubstitute for professional medical care. Always follow your healthcare professional's instructions. 4 General Instructions [facility] Emergency Department [address] [place] [address] Phone #: ext- [phone] 02/23/2021 08:44 Patient: [...] muscle (cardiomyopathy) Coronary artery disease High blood riljbqloYsr-ikwps-qcnllnm causes: Certain medicines such as asthma inhalers and decongestants Some herbal supplements, energy drinks and pills, and weight loss pills 5 General Instructions [facility] Emergency Department [address] [place] [address] Phone #: ext- [phone] 02/23/2021 08:44 Patient: [...] Tell your doctor about any prescription or mebc-ytv-dlcenjf or herbal medicines you take.Follow-up care Follow [...] to seek medical advice 6 General Instructions [facility] Emergency Department [address] [place] [address] Phone #: ext- [phone] 02/23/2021 08:44 Patient: GALLITO HERNANDEZ Sex: M : 1995 Age: 26yCall your healthcare provider right away if you have palpitations that last longer than normal, or aredifferent from your past palpitations. [phone] [employer]. [address] [place] [address], [place] [address]. All rights reserved. This information is not intended as asubstitute for professional medical care. Always follow your healthcare professional's instructions. You have been given the following additional information: Sciatica Palpitations(Electronically signed by Rodney Bermudez 02/23/2021 11:16) Name Value Range Interpretation Code Description Data Sera rce(s) Supporting Document(s) ID Date Data Source [id number] 02/23/2021 08:45:00 AM EDT [facility] 1 Clinical Report - Nurses [facility] Emergency Department [address] [place] [address] Phone #: ext- [phone] 02/23/2021 08:44 Patient: GALLITO HERNANDEZ Sex: M [...] tingling, trouble walking orfever. 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 SEPSIS SCREEN NEGATIVE. [...] daily. Xarelto Oral (Tablet 20 mg), daily. --09:02/23/21 Hema Sampson RN Gabapentin Oral 300 mg, daily. --09:02/23/21 Hema Sampson RN Cymbalta Oral (Capsule Delayed Release Particles 20 mg), daily. --09:04 02/23/21 Hema Sampson RN.AllergiesAlmond (Diagnostic).Avocado (Diagnostic). --09:02/23/21 Hema Sampson RN.Cggnths60:02/23/21.PAST MEDICAL HX: Heart disease.SOCIAL HX: Smoker- current status unknown (1/2 ppd). No alcohol use or drug use. He was offeredHIV testing but declined and hepatitis C testing but declined. He has not traveled outside the [place]Infectious disease exposure: No infectious disease exposure. 2 Clinical Report - Nurses [facility] Emergency Department [address] [place] [address] Phone #: ext- [phone] 02/23/2021 08:44 Patient: [id number] Sex: M : 1995 Age: 26y SELF [...] patient. To room. --09:02/23/21 Hema Sampson RN.PHYSICAL VQMOEAVOOT81:02/23/21. Ambulatory to room.GENERAL / NEURO / PSYCH: [...] Sampson RN 3 Clinical Report - Nurses [facility] Emergency Department [address] [place] [address] Phone #: ext- [phone] 02/23/2021 08:44 Patient: GALLITO HERNANDEZ Sex: M [...] F. Pain level now 02/19. --09:45 02/23/21 [facility] Tech BECCA Brooks Tech1 09:55 02/23/21. Departure time: :02/23/2021. Condition at departure: unchanged. No learning barriers present. Discharge instructions provided and reviewed with the patient. Reviewed medication(s) (no changes). Reviewed rest and ice instructions. Reviewed referrals. Provided to follow-up provider. Patient verbalized understanding. Written instructions provided in South Sudanese. The patient was discharged by the physician. He was discharged home. He left ambulatory and via private vehicle. Patient driving. --:55 02/23/21 Hema Sampson RN.Locked/Released at 02/23/2021 12:00 by Hema Sampson RN Name Value Range Interpretation Code Description Data Sera rce(s) Supporting Document(s) ID Date Data Source [id number] 02/23/2021 08:45:00 AM EDT [facility] 1 Clinical Report - Physicians/Mid Levels [facility] Emergency Department [address] [place] [address] Phone #: ext- [phone] 02/23/2021 08:44 Patient: GALLITO HERNANDEZ Sex: M [...] Xarelto Oral (Tablet 20 mg), daily. Allergies: Austin (Diagnostic). 2 Clinical Report - Physicians/Mid Levels [facility] Emergency Department [address] [place] [address] Phone #: ext- [phone] 02/23/2021 08:44 Patient: GALLITO HERNANDEZ Sex: M : 1995 Age: 26y Avocado (Diagnostic).SOCIAL HISTORYCurrent every day smoker.FAMILY HISTORYNo significant family medical history.ADDITIONAL NOTESThe nursing notes have been reviewed.PHYSICAL EXAMVital Signs: 02/23/2021 09:01 BP: 127/88. MAP: 101. HR: 87. RR: 16. O2 saturation: 100% on room air.Temp: 98 F. Pain level now: 02/19.Appearance: Alert. No acute distress.Eyes: Pupils equal, round [...] stable. 3 Clinical Report - Physicians/Mid Levels [facility] Emergency Department [address] [place] [address] Phone #: ext- [phone] 02/23/2021 08:44 Patient: GALLITO HERNANDEZ Sex: M [...] verbalized by patient. Follow-up with: [facility], , , [address] [place] [address], , [place], [address] Follow up in three days if not well. Call for an appointment. Reason for referral: evaluation.(Electronically signed by Rodney Bermudez 02/23/2021 11:16) Name Value Range Interpretation Code Description Data Sera rce(s) Supporting Document(s) ID Date Data Source [id number] 02/12/2021 12:00:00 AM EDT [facility] Name Value Range Interpretation Code Description Data Sera rce(s) Supporting Document(s) PCR NEGATIVE [facility] This lab was ordered by [facility] are and reported by [facility]. ID Date Data Source [id number] 01/17/2021 06:32:00 PM EDT [facility] [address] [place] [address] PHONE: [phone] FAX: [phone] Name .................. : MARY Orta Acct Number.................. : [id number] ROOM. ................. : VT-19 MR Number ................... : [id number] Stay type ............. : E/R Discharge Date......... ... : Admit Date ......... : 01/17/21 Admit Phys .................... : ANDREE Gallagher Date of ....... : 1995 Family Phys ................... : UNKNOWN CO Phone .................. : [phone] Age ................................ : 26 Film# .................. .:[id number] Sex ................................. : M Unsigned transcriptions are preliminary reports and do not represent a medical or legal document CT LUMBAR SP W/O CONT [id number] COMPLETE:01/17/21 16:54 [id number] Reason(s): fell down stairs, acute on chronic [...] 01/17/21 18:32, JWS Page 1 of [address] [place] [address] PHONE: [phone] FAX: [phone] Name .................. : MARY MARC H Acct Number.................. : [id number] ROOM. ................. : [address] Number ................... : [id number] Stay type ............. : E/R Discharge Date......... ... : Admit Date ......... : 01/17/21 Admit Phys .................... : ANDREE Gallagher Date of ....... : 1995 Family Phys ............ ....... : UNKNOWN CO Phone .................. : [phone] Age ................................ : 26 Film# .................. .:[id number] Sex ................................. : M Unsigned transcriptions are preliminary reports and do not represent a medical or legal document CT LUMBAR SP W/O CONT [id number] COMPLETE:01/17/21 16:54 06979 Reason(s): fell down stairs, acute on chronic LBP Transcribe Initials: TAWANNA , Transcribe Date: 01/17/21 17:50, Dictation Date: Copy for: BURKE Crandall via fax Copy for: EMERGENCY DEPT via modem Copy for: 710 MED REC DISCHARGED Page 2 of 2 Name Value Range Interpretation Code Description Data Sera rce(s) Supporting Document(s) ID Date Data Source [id number] 01/17/2021 02:19:00 PM EDT [facility] 1 OrderSheet [facility] Emergency Department [address] [place] [address] Phone #: ext- [phone] 01/17/2021 13:55 Patient: GALLITO HERNANDEZ Sex: M : 1995 Age: 26yWEIGHT:73.4 kg (S) HEIGHT:67 inches (S) BMI:25.4ALLERGIES: Austin (Diagnostic), Avocado (Diagnostic)CHIEF COMPLAINT: fall, -3-, down [...] rce(s) Supporting Document(s) ID Date Data Source [id number] 01/17/2021 02:19:00 PM EDT [facility] 1 Medication Reconciliation Report [facility] Emergency Department [address] [place] [address] Phone #: ext- [phone] 01/17/2021 13:55 Patient: GALLITO HERNANDEZ Sex: M : 1995 Age: 26yWeight: 73.4 kgHeight/Length: 67 in.BMI: 25.4ALLERGIES: Austin (Diagnostic), Avocado (Diagnostic)The patient's Home Medications are [...] Dispense6 tablet. Refills: 0. Substitution permitted.Pharmacy - [facility] [address] ; [place] [address]. . -- MARYAN Velasco Name Value Range Interpretation Code Description Data [facility](s) Supporting Document(s) ID Date Data Source [id number] 01/17/2021 02:19:00 PM EDT [facility] 1 Medication Administration Record [facility] Emergency Department [address] [place] [address] Phone #: ext- [phone] 01/17/2021 13:55 Patient: GALLITO HERNANDEZ Sex: M : 1995 Age: 26yWeight: 73.4 kgHeight/Length: 67 inBMI: 25.4ALLERGIES: Austin (Diagnostic), Avocado (Diagnostic) Date/Time Medication Administered Medication OrderedGiven MORPHINE [IM] Morphine IM 4 mg (NOW x1, HIGH17:04 01/17/2021 Dose: 4 mg IM ALERT MEDICATION)Hema Sampson RNGiven ZOFRAN ODT [PO] (ONDANSETRON Zofran ODT PO 4 mg (NOW x1)17:05 01/17/2021 HCL)Hema Sampson RN Dose: 4 mg Oral Disintegrating Tablets PO Name Value Range Interpretation Code Description Data [facility](s) Supporting Document(s) ID Date Data Source [id number] 01/17/2021 02:19:00 PM EDT [facility] 1 General Instructions [facility] Emergency Department [address] [place] [address] Phone #: ext- [phone] 01/17/2021 13:55 Patient: [facility]ALL[id number] Sex: M : 1995 Age: 26yAcute left [...] Dispense6 tablet. Refills: 0. Substitution permitted.Pharmacy - [facility] [address] ; [place] [address]. .Understanding of the discharge instructions verbalize d by patient. Expected course of injury, dischargeinstructions, activity level, prescriptions x1, follow-up appointment and risks and benefits of treatmentreviewed with patient and understanding verbalized. Agrees to plan of care.Follow-up with: [facility], , , [address] [place] [address], , [place], [address] Follow up in one day even if well. Call for the next available appointment. Reason for referral: evaluationand recommend MRI LS spine and referral to ortho spine . Summary of care provided to patient via paper. ADDITIONAL INFORMATION 2 General Instructions [facility] Emergency Department [address] [place], [place] [address] Phone #: ext- [phone] 01/17/2021 13:55 Patient: GALLITO HERNANDEZ Sex: M [...] howsevere your symptoms are. 3 General Instructions [facility] Emergency Department [address] [place] [address] Phone #: ext- [phone] 01/17/2021 13:55 --- [...] your back or spine 4 General Instructions [facility] Emergency Department [address] [place] [address] Phone #: ext- [phone] 01/17/2021 13:55 Patient: GALLITO HERNANDEZ Sex: M : 1995 Age: 26y [id number] [employer]. [address] [place] [address], [place] [address]. All rights reserved. This information is not [...] provider before using these 5 General Instructions [facility] Emergency Department [address] [place] [address] Phone #: ext- [phone] 01/17/2021 13:55 Patient: [...] the reading, especially if it affects treatment.Call [phone] if any of these happen: 6 General Instructions [facility] Emergency Department [address] [place] [address] Phone #: ext- [phone] 01/17/2021 13:55 Patient: [...] in vomit, stools (black or red color) [phone] [employer] [place] [address]. All rights reserved. This information is not [...] in poorly lit areas. 7 General Instructions [facility] Emergency Department [address] [place] [address] Phone #: ext- [phone] 01/17/2021 13:55 Patient: [...] sidewalks. If your balance is poor, con ui programmer using a cane or walker. If your [...] could make you more likely to fall. [phone] [employer]. [address] [place] [address]. All rights reserved. This information is not intended as asubstitute for professional medical care. Always follow your healthcare professional's instructions. You have been given the following additional information: Sciatica Mechanical Fall Fall Prevention 8 General Instructions [facility] Emergency Department [address] [place] [address] Phone #: ext- [phone] 01/17/2021 13:55 Patient: GALLITO HERNANDEZ Sex: M : 1995 Age: 26yNo strenuous activity until better.(Electronically signed by MARYAN Velasco 01/17/2021 18:46) Name Value Range Interpretation Code Description Data Sera rce(s) Supporting Document(s) ID Date Data Source [id number] 01/17/2021 02:19:00 PM EDT [facility] 1 Clinical Report - Nurses [facility] Emergency Department [address] [place] [address] Phone #: ext- [phone] 01/17/2021 13:55 Patient: [...] bladder.). 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 Temp: 98.6 F. Pain level now 10.--14:15 01/17/21 Belgica Joaquin R.N.Weight: 73.4 kg stated. Height/Length: 67 inches Per Patient. BMI: 25.4. --14:12 01/17/21 Belgica Joaquin R.N.MedicationsXarelto Oral (Tablet 20 mg), daily. --14:14 01/17/21 Belgica Joaquin R.N. Metoprolol Succinate ER Oral (Tablet Extended Release 24 Hour 100 mg), daily. --14:14 01/17/21Belgica Joaquin R.N.AllergiesAvocado (Diagnostic). --14:13 01/17/21 Belgica Joaquin R.N.Austin (Diagnostic). --14:14 01/17/21 Belgica Joaquin R.N.PROBLEMS:Depression. --14:15 01/17/21 Belgica Joaquin R.N.Back Pain.Atrial Fibrillation. --16:48 01/17/21 MARYAN Velasco 2 Clinical Report - Nurses [facility] Emergency Department [address] [place] [address] Phone #: ext- [phone] 01/17/2021 13:55 Patient: GALLITO HERNANDEZ Sex: M : 1995 Age: 26y The following entry was modified by MARYAN Velasco, 16:48 01/17/21 Back Pain. --14:14 01/17/21 Belgica Joaquin R.N. The following entry was modified by MARYAN Vealsco, 16:48 01/17/21 Atrial Fibrillation. --14:14 01/17/21 Belgica [...] in pain. 3 Clinical Report - Nurses [facility] Emergency Department [address] [place] [address] Phone #: ext- [phone] 01/17/2021 13:55 Patient: [...] RR: 16. O2 saturation: 99%. --17:11 01/17/21 [employer], [facility], ER Tech1 Patient transported to [place] by wheelchair with mask and theater technician. (1720). --17:31 01/17/21 Hema Sampson RN Patient returned from CT by wheelchair with mask and theater technician. (1731). --17:33 01/17/21 Hema Sampson RN 18:16 01/17/21. BP: 114/83. HR: 84. RR: 16. O2 saturation: 100%. --18:16 01/17/21 [employer] sports [employer], [facility], ER Tech1.DISPOSITION / DISCHARGE 17:49 01/17/21. Departure time: 17:49 01/17/2021. Transferred. Provided to EMS ([facility]). Transported via ambulance by mutual funds agent. Report was given to a nurse via a phone call. Report included information regarding patient's allergies and condition including: recent changes, vital signs and critical labs. Report included treatment information regarding medications given or pending; type and amount of IV fluids and medications infusing. All questions were answered. Report was acknowledged. (Delmi grseham). --17:49 01/17/21 Hema Sampson RN Charted On [...] now 5/10. 4 Clinical Report - Nurses [facility] Emergency Department [address] [place] [address] Phone #: ext- [phone] 01/17/2021 13:55 Patient: GALLITO HERNANDEZ Sex: M : 1995 Age: 26y --18:18 [facility]21 [facility] Departure time: 18:24 01/17/2021. --18:24 01/17/21 Balbina Ramirez RN Condition at departure: stable. No learning barriers present. Discharge instructions provided and reviewed with the patient. Reviewed medication(s) side effects, precautions, dosing and course information. Prescription(s) sent electronically to pharmacy. Reviewed referral to a primary care physician. Patient verbalized understanding. Written instructions provided in South Sudanese. The patient was discharged by the physician fiscal assistant. He was discharged home and accompanied by spouse. He left ambulatory and via private vehicle. Spouse driving. --18:26 01/17/21 Balbina Ramirez RN.Locked/Released at 01/17/2021 18:26 by Balbina Ramirez RN Name Value Range Interpretation Code Description Data Sera rce(s) Supporting Document(s) ID Date Data Source [id number] 01/17/2021 02:19:00 PM EDT [facility] 1 Clinical Report - Physicians/Mid Levels [facility] Emergency Department [address] [place] [address] Phone #: ext- [phone] 01/17/2021 13:55 Patient: [...] Loop recorder. Medications: 2 Clinical Report - Physicians/[facility] Emergency Department [address] [place] [address] Phone #: ext- [phone] 01/17/2021 13:55 Patient: GALLITO HERNANDEZ Sex: M : 1995 Age: 26y Metoprolol Succinate ER Oral (Tablet Extended Release 24 Hour 100 mg), daily. Xarelto Oral (Tablet 20 mg), daily. Allergies: Austin (Diagnostic). Avocado (Diagnostic).SOCIAL HISTORYSmoker- current status unknown. [...] is 3 Clinical Report - Physicians/Mid Levels [facility] Emergency Department [address] [place] [address] Phone #: ext- [phone] 01/17/2021 13:55 Patient: GALLITO HERNANDEZ Sex: M [...] Pharmacy - [facility] [id number] ; [place] [address]. . Understanding of the discharge instructions verbalized by patient. Expected course of injury, discharge instructions, activity level, prescriptions x1, follow-up appointment and risks and benefits of treatment reviewed with patient and understanding verbalized. Agrees to plan of care. [facility], , , [id number] [place] [address], , [place], [address] Follow up in one day even if well. Call for the next available appointment. Reason for referral: evaluation and recommend MRI LS spine and referral to ortho spine . Summary of care provided to patient via paper. 4 Clinical Report - Physicians/Mid Levels [facility] Emergency Department [address] [place] [address] Phone #: ext- [phone] 01/17/2021 13:55 Patient: GALLITO HERNANDEZ Sex: M : 1995 Age: 26y(Electronically signed by MARYAN Velasco 01/17/2021 18:46) Name Value Range Interpretation Code Description Data Sera rce(s) Supporting Document(s) ID Date Data Source [id number] 01/12/2021 11:26:00 AM EDT [facility] 1 OrderSheet [facility] Emergency Department [address] [place] [address] Phone #: ext [phone] 01/12/2021 11:19 Patient: GALLITO MONTGOMERY Sex: M [...] rce(s) Supporting Document(s) ID Date Data Source [id number] 01/12/2021 11:26:00 AM EDT [facility] 1 Medication Reconciliation Report [facility] Emergency Department [address] [place] [address] Phone #: ext- [phone] 01/12/2021 11:19 Patient: GALLITO MONTGOMERY Sex: Violeta : 1995 Age: 26yWeight: 73.4 kgHeight/Length: 67 [...] Dispense 30 tablet. Refills:0. Substitution permitted.Pharmacy - [facility] [address] [facility] ; [place] [address]. .prednisone 10 mg tablet Take 4 tablet once a day for 10 days -- x 2 days then 3 tabs daily x 2 daysthen 2 tabs daily x 2 days then 1 tab daily x 2 days. Dispense 30 tablet. Refills: 0. Substitution permitted.[facility] - [facility] [address] [facility] ; [place] [address]. . 2 Medication Reconciliation Report [facility] Emergency Department [address] [place] [address] Phone #: ext- [phone] 01/12/2021 11:19 Patient: GALLITO MONTGOMERY Sex: M : 1995 Age: 26yPercocet 5 mg-325 mg tablet Take 1 tablet four times a day for 3 days -- as needed for pain. Lfvwhpst19 tablet. Refills: 0. Substitution permitted.Pharmacy - [facility] [phone] ; [place] [address]. . -- Giorgi Menjivar Name Value Range Interpretation Code Description Data Sera rce(s) Supporting Document(s) ID Date Data Source [id number] 01/12/2021 11:26:00 AM EDT [facility] 1 Medication Administration Record [facility] Emergency Department [address] [place] [address] Phone #: ext- [phone] 01/12/2021 11:19 Patient: GALLITO MONTGOMERY Sex: M : 1995 Age: 26yWeight: 73.4 kgHeight/Length: 67 inBMI: 25.4ALLERGIES: Debbie Pollack Date/Time Medication Administered Medication OrderedGiven FLEXERIL [PO] (CYCLOBENZAPRINE Flexeril PO 10 mg (NOW)12:07 01/12/2021 HCL)Shanda Gonsales RAnselmo Dose: 10 mg Tablets POGiven PERCOCET [PO] Percocet PO 1 tab (HIGH ALERT12:07 01/12/2021 (OXYCODONE- ACETAMINOPHEN) MEDICATION)Shanda Gonsales R.N. Dose: 1 tab Tablets POGiven DEXAMETHASONE [IM] Dexamethasone IM 10 mg (NOW)12:08 01/12/2021 Dose: 10 mg Shanda Bhakta R.N. Name Value Range Interpretation Code Description Data Sera rce(s) Supporting Document(s) ID Date Data Source [id number] 01/12/2021 11:26:00 AM EDT [facility] 1 General Instructions [facility] Emergency Department [address] [place] [address] Phone #: ext- [phone] 01/12/2021 11:19 Patient: [...] Dispense 30 tablet. Refills:0. Substitution permitted.Pharmacy - [facility] [employer] [id number] [facility] ; [place] [address]. .prednisone 10 mg tablet Take 4 tablet once a day for 10 days -- x 2 days then 3 tabs daily x 2 daysthen 2 tabs daily x 2 days then 1 tab daily x 2 days. Dispense 30 tablet. Refills: 0. Substitution permitted.Pharmacy - [facility] [employer] - [address] [facility] ; [place] [address]. .Percocet 5 mg-325 mg tablet Take 1 tablet four times a day for 3 days -- as needed for pain. Qnpgixds05 tablet. Refills: 0. Substitution permitted.Pharmacy - [facility] [address] ; [place] [address]. .Follow-up: Follow up with your healthcare provider in three days if not better. Reason for referral: evaluation.Summary of care provided to patient via paper. Screening today revealed the patient's blood pressure indra in the hypertensive stage 2 range. The patient should follow up with a primary care provider for bloodpressure management. ADDITIONAL INFORMATION 2 General Instructions [facility] Emergency Department [address] [place] [address] Phone #: ext- [phone] 01/12/2021 11:19 Patient: GALLITO MONTGOMERY Violeta RN: [id number] Sex: M : 1995 Age: 26ySciaticaSciatica is [...] howsevere your symptoms are. 3 General Instructions [facility] Emergency Department [address] [place] [address] Phone #: ext- [phone] 01/12/2021 11:19 Patient: [...] your back or spine 4 General Instructions [facility] Emergency Department [address] [place] [address] Phone #: ext- [phone] 01/12/2021 11:19 Patient: GALLITO MONTGOMERY Sex: M : 1995 Age: 26y [id number] [employer] [place] [address]. All rights reserved. This information is not intended as asubstitute for professional medical care. Always follow your healthcare professional's instructions. You have been given the following additional information: Sciatica Do not work for one day.(Electronically signed by Giorgi Menjivar 01/13/2021 03:27) Name Value Range Interpretation Code Description Data Sera rce(s) Supporting Document(s) ID Date Data Source [id number] 01/12/2021 11:26:00 AM EDT [facility] 1 Clinical Report - Nurses [facility] Emergency Department [address] [place] [address] Phone #: ext- [phone] 01/12/2021 11:19 Patient: [...] reports [facility] pt had an mri done and it showed bulging discs. pt reports he has a hx of a-fib so he was notgiven medications for pain.).Triage time: 11:01/12/2021. Acuity: LEVEL 3.This started yesterday. Onset. 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 2 Clinical Report - Nurses [facility] Emergency Department [address] [place] [address] Phone #: ext- [phone] 01/12/2021 11:19 Patient: [...] sinceincident 4 weeks ago when seen in [facility] and MRI done per patient. pt [...] verified and 3 Clinical Report - Nurses [facility] Emergency Department [address] [place] [address] Phone #: ext- [phone] 01/12/2021 11:19 Patient: [...] Patient transported to radiology by wheelchair with theater technician. --12:09 01/12/21 Shanda Gonsales R.N.DISPOSITION / DISCHARGE Condition at departure: improved and stable. No learning barriers present. Discharge instructions provided and reviewed with the patient. Reviewed medication(s) side effects, precautions, dosing and course information. Prescription(s) sent electronically to pharmacy. Work note given. Patient verbalized understanding. Written instructions provided in South Sudanese. The patient was discharged by the physician. [...] rce(s) Supporting Document(s) ID Date Data Source [id number] 01/12/2021 11:26:00 AM EDT [facility] 1 Clinical Report - Physicians/Mid Levels [facility] Emergency Department [address] [place] [address] Phone #: ext- [phone] 01/12/2021 11:19 Patient: GALLITO MONTGOMERY [facility]#: [id number] Sex: M : 1995 Age: 26y Time [...] bowel 1 moth ago was seen at [facility] and had an MRI which showed [...] Medications: Xarelto Oral. Alieve about 199901/11/2021. Allergies: Austin. Avacado. 2 Clinical Report - Physicians/Mid Levels [facility] Emergency Department [address] [place] [address] Phone #: ext- [phone] 01/12/2021 11:19 Patient: [id number] Sex: M : 1995 Age: 26ySOCIAL HISTORYFormer [...] has 3 Clinical Report - Physicians/Mid Levels [facility] Emergency Department [address] [place] [address] Phone #: ext- [phone] 01/12/2021 11:19 Patient: [facility]ALLITO MONTGOMERY [id number] Sex: M : 1995 Age: 26y a [...] been reviewed. STOP TAKING THE FOLLOWING MEDICATIONS: Wardeve about 199901/11/2021*. CONTINUE TAKING THE FOLLOWING MEDICATIONS: Xarelto Oral. Prescription Medications: cyclobenzaprine 10 mg tablet Take 1 tablet three times a day for 10 days -- Dispense 30 tablet. Refills: 0. Substitution permitted. Pharmacy - [facility] [address] [facility] ; [place] [address]. . prednisone 10 mg tablet Take 4 tablet once a day for 10 days -- x 2 days then 3 tabs daily x 2 days then 2 tabs daily x 2 days then 1 tab daily x 2 days. Dispense 30 tablet. Refills: 0. Substitution permitted. Pharmacy - [facility] [facility] [address] [facility] ; [place] [address]. . Percocet 5 mg-325 mg tablet Take 1 tablet four times a day for 3 days -- as needed for pain. Dispense 12 tablet. Refills: 0. Substitution permitted. Pharmacy - [facility] [address] ; [place] [address]. Phone: . 4 Clinical Report - Physicians/Mid Levels [facility] Emergency Department [address] [place] [address] Phone #: ext- [phone] 01/12/2021 11:19 Patient: GALLITO MONTGOMERY Sex: M [...] rce(s) Supporting Document(s) ID Date Data Source [id number] 01/12/2021 02:58:00 [place] [address] PHONE: [phone] FAX: [phone] Name .................. : ULISES You ZENDEJAS Acct Number.................. : [id number] ROOM. ................. : VT-01 MR Number ................... : [id number] Stay type ............. : E/R Discharge Date......... ... : Admit Date ......... : 08/30 Admit Phys .................... : CHANLIECCO Date of ....... : 1995 Family Phys ................... : UNKNOWN CO Phone .................. : [phone] Age ................................ : 26 Film# .................. .:[id number] Sex ................................. : M Unsigned transcriptions are preliminary reports and do not represent a medical or legal document SPINE LS COMPLETE [id number] COMPLETE:01/12/21 11:40 00537 Reason(s): Lower Back Pain LUMBOSACRAL SPINE 5 [...] rce(s) Supporting Document(s) ID Date Data Source [id number] 12/10/2020 12:16:59 PM EDT [facility] NT INFORMATIONPatient MRN Name Date of Age Gend*PT [id number] Gallito Hinojosa 1995 25 years M ---PT Location Admission Date/Time Visit ID Attending Provider --- --- --- --- EPI ID CSN Admitting Pro vider [id number] ---Cardiology Office VisitSubjectiveChief Complaint: Status post atrial [...] of having procedure completed he went to [facility] twice due tonausea, vomiting, and diarrhea. [...] Social Gatherings with Friends and Family: Attends [employer]: Active Member of Clubs or Organizations: Attends Club or Organization Meetings: Marital Status:Intimate Partner Violence: Fear of Current or Ex-Partner: Emotionally Abused: Physically Abused: Sexually Abused:Medications and AllergiesAllergiesAllergen Reactions Austin Meal Anaphylaxis Avocado AnaphylaxisCurrent Outpatient MedicationsMedication Sig [...] NEGATIVE Final Testing site 11/16/2020 [address] [place] [address] [place] [id number] Blood bank comment 11/16/2020 SEE NOTES Final [...] sinus rhythm. [facility] Patient will call the office if [...] rce(s) Supporting Document(s) ID Date Data Source [id number] 11/30/2020 11:12:00 AM EDT [facility] Name Value Range Interpretation Code Description Data Sera rce(s) Supporting Document(s) Albumin [Mass/volume] in Serum or Plasma 4.0 [facility] ([facility]) Alanine aminotransferase [Enzymatic activity/volume] in Serum or Pl asma 32 [facility] ([facility]) Calcium [Mass/volume] in Serum or Plasma 9.5 [facility] ([facility]) Alkaline phosphatase [Enzymatic activity/volume] in Serum or Plasma 7 4 [facility] ([facility]) Carbon dioxide, total [Moles/volume] in Serum or Plasma 30 [facility] ([facility]) Chloride [Moles/volume] in Serum or Plasma 104 [facility] ([facility]) Potassium [Moles/volume] in Serum or Plasma 4.1 [facility] ([facility]) Protein [Mass/volume] in Serum or Plasma 7.6 [facility] ([facility]) Sodium 137 [facility] ([facility]) Aspartate aminotransferase [Enzymatic activity/volume] in Serum or Plasma 19 [facility] ([facility]) Urea nitrogen [Mass/volume] in Serum or Plasma 11 [facility] ([facility]) Creatinine For GFR 1.06 [facility] ([facility]) Glucose 77 70-100 [facility] ([facility]) ID Date Data Source [id number] 11/30/2020 11:12:00 AM EDT [facility] ([facility]) Name Value Range Interpretation Code Description Data Sera rce(s) Supporting Document(s) Red Blood Count 5.28 4.70-6.20 [facility] ([facility]) White Blood Count 5.3 4.3-10.9 [facility] ([facility]) Platelets 153 130-400 [facility] ([facility]) Hemoglobin 16.0 13.0-17.0 [facility] (Cardiology [facility]) Hematocrit 47.7 39.0-50.0 [facility] ([facility]) ID Date Data Source [id number] 11/21/2020 11:09:00 AM EDT [facility] ([facility]) Name Value Range Interpretation Code Description Data Sera rce(s) Supporting Document(s) Magnesium Level 2.1 [facility] ([facility]io [facility]) Troponin 1.48 [facility] ID Date Data Source [id number] 11/21/2020 11:09:00 AM EDT [facility] ([facility]) Name Value Range Interpretation Code Description Data Sera rce(s) Supporting Document(s) Sodium 140 [facility] ([facility] Calcium [Mass/volume] in Serum or Plasma 9.1 [facility] ([facility]) Carbon dioxide, total [Moles/volume] in Serum or Plasma 26 [facility] ([facility]) Chloride [Moles/volume] in Serum or Plasma 107 [facility] ([facility]) Glucose 76 70-100 [facility] ([facility]) Potassium [Moles/volume] in Serum or Plasma 4.1 [facility] ([facility]) Blood Urea Nitrogen 12 5-21 [facility] (Ca [facility]di[facility]) Glomerular filtration rate/1.73 sq M.pre dicted [Volume Rate/Area] in Serum or Plasma by Creatinine-based formula (MDRD) Laboratory test result [facility] ([facility]) Creatinine 0.93 0.6-1.5 [facility] ([facility]) ID Date Data Source [id number] 11/20/2020 07:17:20 AM EDT [facility] Name Value Range Interpretation Code Description Data Sera rce(s) Supporting Document(s) &PDF [facility] JIQIIg2sIcLOYkJc97/ASJxaPEJhr6XfUEjuSVp2VEgmGJArE8RxpBpoGRbEOQ6xHvQDIVcIIZAoBCBP yZW [file] LxlswEsGG/HQrEh3FXFGBbnfyKi+CgnGMTBGCQKODYUSMVIAGVZDSVOVECAZND3s/zcUxiUNCmVuZHN0 wlPudF6UJO0co7HyFFgmDWZaRA2zem4RF75WDpLwDX8bvs0XAxYvJC5jfo3CAGmTXuIyO2Ylx1GNPVTn Qv5XFZPhLRM3vR3LcASoWICdCF9iN9BRHO5KOHGzWd 9ixQW4VBVhTqBnOTJzBSONNJmyIPEwQ8PtJMX5KFSwNa9+OSdkGT9JK1WbILA1NQt7GJ1hwIzuVRS6WK AhVs7DTEHkMP1sfCxiETB4ASWbKd3+IIknQB0IrQLGJ5RgrVCkTAzdU0EJUG7ITBX6JB8FhSTkAG9SaB HLR5HziKQbGr3nKXVgq9WxUt2dJ0KWQIWERFAtQTaf LIkwPBDgCEv2V8K9IYFlX6PIN868gRXnvRm7Me9gY1THGGwHOyYtDYbgZYlzARAqOKb7U6H7XYFmL7CF X7VpCbOtvxNeH3Y+IjArOGHLCN2RJKHQUXa6M2I4pRMcB6R4eNiVqMY2LE7QSR7VzMYqnQYth60+PiAN BoPeK8JOG9RYYE1PUFr1O7K6rPHiK5K4yRoKdKK9DE 7ZXM1UmQqtcNXqYg2hFZxgAIK+Dv6ICi0FRxItYB6gqv6FZvAfVABbZbwXQso1K7rdjjn8nSYlEjV3R8 H9DwO7uCSjTC1MR7F5tNVjFZD8XRAosWD+Tw5Ha1BjKVMiJRt2I5pbJWFpPEXdEoNpjP23S++7vycgaW Q4I1t8OITGjTSpcYzMblVuB7dOANP2l2S7ESe/Pg0K FZS6iKn9cHCjDYLrEIc7mD7yiYm3AkYgWH55UBBqOPykxX4kPoh6Q9Qqk9JaMp2iCr1clJWtBg8YEiEy INM4mwRoRqFSHgK3rSuvjpotJYX6B6p3mWN8Ed06p4zxfbXyp5KvDgI1ABlqEIWfNoQctvGtOXN1fzKx rB5rcgTcIg5RBNPzQLeyueNaIlIFCh7OFjPvYO21Zp vzuV7amQL+DQogICAgICAgICAgICAgICAgICAgICAgICAgICAgICAgICAgICAgICAgICAgICAgICAgIC AgICAgICAgICAgICAgICAgICAgICAgICAgICAgICAgICAgICAgICAgICAgICAgICAgDQogICAgICAgIC AgICAgICAgICAgICAgICAgICAgICAgICAgICAgICAg ICAgICAgICAgICAgICAgICAgICAgICAgICAgICAgICAgICAgICAgICAgICAgICAgICAgICAgICAgICAg DQogICAgICAgICAgICAgICAgICAgICAgICAgICAgICAgICAgICAgICAgICAgICAgICAgICAgICAgICAg ICAgICAgICAgICAgICAgICAgICAgICAgICAgICAgIC AgICAgICAgICAgDQogICAgICAgICAgICAgICAgICAgICAgICAgICAgICAgICAgICAgICAgICAgICAgIC AgICAgICAgICAgICAgICAgICAgICAgICAgICAgICAgICAgICAgICAgICAgICAgICAgICAgDQogICAgIC AgICAgICAgICAgICAgICAgICAgICAgICAgICAgICAg ICAgICAgICAgICAgICAgICAgICAgICAgICAgICAgICAgICAgICAgICAgICAgICAgICAgICAgICAgICAg ICAgDQogICAgICAgICAgICAgICAgICAgICAgICAgICAgICAgICAgICAgICAgICAgICAgICAgICAgICAg ICAgICAgICAgICAgICAgICAgICAgICAgICAgICAgIC AgICAgICAgICAgICAgDQogICAgICAgICAgICAgICAgICAgICAgICAgICAgICAgICAgICAgICAgICAgIC AgICAgICAgICAgICAgICAgICAgICAgICAgICAgICAgICAgICAgICAgICAgICAgICAgICAgICAgDQogIC AgICAgICAgICAgICAgICAgICAgICAgICAgICAgICAg ICAgICAgICAgICAgICAgICAgICAgICAgICAgICAgICAgICAgICAgICAgICAgICAgICAgICAgICAgICAg ICAgICAgDQogICAgICAgICAgICAgICAgICAgICAgICAgICAgICAgICAgICAgICAgICAgICAgICAgICAg ICAgICAgICAgICAgICAgICAgICAgICAgICAgICAgIC AgICAgICAgICAgICAgICAgDQogICAgICAgICAgICAgICAgICAgICAgICAgICAgICAgICAgICAgICAgIC AgICAgICAgICAgICAgICAgICAgICAgICAgICAgICAgICAgICAgICAgICAgICAgICAgICAgICAgICAgDQ e1S4hsMHUcGVOhRD7rGGk7Jh1+MVxTIcAcSQS0vfMk gI2ZUV5gj2FxVFhsTEGnk4MoYGe4RC5BRBCaIJuoND4UCLysyw3UOSMzAAFchFEIa3seKdFoGLF9POFp XgigKP5NDMIcX0zawoHtPUVmKAMMMPjuAUUSJGwfFNDJRZReLAUjIpRvXZybBV4Np5VwpRP4SAd+Pg0K EH5lv6NcXTnrOkChOD2ecy6NYRkSVzJkF5LpbrX9QJ NrQWTjAf7HOPSwNSBszVWmXjPzMKNFKnJdW0PgzI08DKOURa2+HNdktvWdUaoWXoJcBFGes2ZtZVi7EU 8DUBHlIKo6cBRjLN1vmFBzlVSkGEdjPI1LZLM9IKryPPIuBNZFEA5LKQhfYCA9AtxrjvCjoDGyHAycZT 9QYXJlbnQgMjIgMCBSDQo+Zw9CSH5wl0RwSSyfSTCc WD7ntn2HKCyPFnAdQ2F9bYIuV6E4LUrbFe6UBMXzPQCwVzAtLIEQMMqpYF3KJK4qfmM2BO6SjUQzKTXo EQBrlDCbWFb3H80yoDOkEBdjHS6EJPT+Doroteo+Ke5FIOHeVDCiJPFcElUxIWLOJwBrU4GbU5LGl7CyI7Os QZ96nYtkckTfSXshKL1QNJ1yVTCoPOCXFA7AhDNceQ 4vkgJlOuBrGRSFOtRyU84kaFEzVGNeAIBeEZGuFo9VWZDeG8TjqvOlvLrocqLoDPRmYXRAOC2EWAwodx DznWSqyOrbEP92wKjsCL4GPc8FOlIjNJ0pru8AzCAeWd3FDWVkKY4OHCCmWTZdRGCfJUR3PELzGvFkFC uuNKYbHHWnTIE0USIvUBXoZG8QCbNsXMKnEOc6OISx JVOzWLOmlr5HMPDxQUHzIOBgHGJnKKNyKHXoJDykEQSnUHQkRMd0POLeTHZqKV0ZDiIeBEKeMENpHEPs PCLaKPRjjj6JCGDpJYMmZvTuGaZbJXVyKVHzNPcuVMOaZYA2HpW6MVAgDRZhWG9NVuRqMNVmWII1GQla FUZhHVHlfo9OKUOqECKvCTVuVpLaXGYoEVFdIWlsFV AjDKJ0EsD1VWJpUBEmQL2GWmFuBQYlLHQaPQAiOUOgTQZbod3XQRBwIQWaNDH3XGGdXESvPVWjIObnSW JhKRIaYBE3BGVbTMJxMH6XDcEqMINyARD6GYEsHEIxNPVcoq5KMSGePBTcPHi3USMiHJKaIMRnVVonBY JeEODdSZZ8CGQwVNMjDX8CNvJmYGJjULAhMlDuOVRi GWFyux7AILUuRHYtIsL3VIQkNCReVBZhZQjgCFGsAJW2XEBjCMOcTOEaXZ8LYxVrZKXvUTg7AyGmJHEh YLIjwg9SGUJvBHFbEWM0CBNlJSRbYGPuEKfrHJKtYIVgGxIjBSAmBRPiWO7CWeKqVVPtUlI0QFTuXFNl BAFard1NHMXaUEFtAOiyUbLdYUOnEAWuRZn8knQtsG LoRHh0IS5DB8KxlrAuSvQJCy3Bm828DTV5NLZjXs6IG1siPh6mOUJbUZZVVg1ZIDv8FLCqWydmJcI4XN IgFLTgOVb6VvZrGPN4AZJ5KnN0CZJ+BFjkGAD7M6BdPRk3PgN1QUOfNLupTfT5PWp7TYTqYzC1UK0xRZ ANCj4+KNhqbUJjkOeiGQYNJqFlVUR8BRyiCZUBTr0I ID Date Data Source [id number] 11/19/2020 11:45:51 AM EDT [facility] NT INFORMATIONPatient MRN Name Date of Age Gend*PT [id number] Gallito Hinojosa 1995 25 years M HOPPT Location Admission Date/Time Visit ID Attending Provider --- --- --- --- EPI ID CSN Admitting Pro vider [id number] ---Arterial Line PlacementPatient location during procedure: ORIndications for arterial line: hemodynamic monitoringStaffingPerformed by: Mathew Stewart CRNAApproved by: OSCAR Lindseyompleted: patient identified, risks and benefits discussed, surgical [...] rce(s) Supporting Document(s) ID Date Data Source [id number] 11/19/2020 11:45:21 AM EDT [facility] NT INFORMATIONPatient MRN Name Date of Age Gend*PT [id number] Gallito Hinojosa 1995 25 years M HOPPT Location Admission Date/Time Visit ID Attending Provider --- --- --- --- EPI ID CSN Admitting Pro vider [id number] ---AirwayPatient location during procedure: ORUrgency: electiveDifficult airway: [...] cmPlacement verified by: chest auscultation and + [id number]: CTA and equal breath sounds bilateralGrade view: grade IIa - partial view of glottis Name Value Range Interpretation Code Description Data Sera rce(s) Supporting Document(s) ID Date Data Source [id number] 11/19/2020 10:48:37 AM EDT [facility] NT INFORMATIONPatient MRN Name Date of Age Gend*PT [id number] Gallito Hinojosa 1995 25 years M HOPPT Location Admission Date/Time Visit ID Attending ProviderCV-11 11/19/20 1035 --- Ward Durán MD([id number]) EPI ID CSN Admitting Provider [id number] Ward Durán MD([id number])H&P reviewed. The patient was examined and there are no changes to the H&P.Ward Durán MD10:48 AM Name Value Range Interpretation Code Description Data Sera rce(s) Supporting Document(s) ID Date Data Source [id number] 11/16/2020 10:08:39 AM EDT [facility] Name Value Range Interpretation Code Description Data Sera rce(s) Supporting Document(s) EKG [facility] AHYCEn8kRkXIIdDje3BwYxHsNENmCF8hqhs7A6G7fPXhO5PjfHSrx7awR7QgD4OsYYPpNIPFHB8BgZBl jb2 [file] OTggMDAwMDAgbiAKMDAwMDAwMDQwOSAwMDAwMCBuIA qjYFEqKKSgZVMaUAEzCRUoZY8jOhAoDPAzEMU2YSPtSACoWLMaahRBOTBxRLTiDGk5DHLmZLFvPNSlCL rzIYXuRFLaIMZ1RLFqQVGhXF9oQiPzWXZdFDJ6ZiLlZYAeTACydhXNTCBrUOJoCJQ0ZxFaEGFjUFAyXR nnUOVqQGDoHAdsSQDsSKNtGP7fRpEoPGFmGMZrQVcs CMWeZNWlsyXODNVuHACmFFAdEcTeGXLsAVNlMHcnEKSwBNCaVuK3NJMoFQHlSJ5wPsYuAPDpYTF0HLyv CQWdNFXhpcNKKYJlOKMmZByiBBJuIMGcRWKbKUkxJNQmSPPhUWS9CYCkJSLqCT8dRhQzJFNpSJXhFVBv AuV7ZnSmJeQQsGXqzZvnklz2TMmqF2b0NQTwZSnySG 3opqVsKORlTbfdVk0fdNF5OTWdZihJPw2Hc6UiaxV5kaHcTkLhWcMlPnHaYR0M ID Date Data Source [id number] 11/16/2020 09:13:47 AM EDT [facility] ClinicPATIE NT INFORMATIONPatient MRN Name Date of Age Gend*PT [id number] Chandler Camargo Gallito Orta 1995 25 years M OPPT Location Admission Date/Time Visit ID Attending Provider --- --- --- Violeta Ortega([id number]) EPI ID CSN Admitting Provider [id number] ---OUTPATIENT / OBSERVATIONAL SURGICAL OR INVASIVE PROCEDUREName: Gallito Camargo : 1995 Sex: male [facility]: [facility] CareAttending Physician: Dr. Blanca OF PRESENT ILLNESS: Mr Camargo is a 25 years old -Omani malewith history of depression, anxiety, GERD, and [...] RECORDER 08/2020 WISDOM TOOTH EXTRACTION localALLERGIES:AllergiesAllergen Reactions Austin Meal Anaphylaxis Avocado AnaphylaxisMEDICATIONS:Prior to Admission medicationsMedication [...] nurse to inform when to start. 03/24/20 Subha Bland, NPsertraline (ZOLOFT) 50 MG tablet Take 100 mg [...] thyromegaly. No carotid bruits.MENTAL / NEUROLOGICAL STATUS: [id number]: Clear to auscultation. No wheezes, rhonchi or crackles.HEART: Rate rhythm regular. S1, S2. No murmur, rub or gallop.ABDOMEN: Bowel sounds positive times four. Soft, non tender. No reboundtenderness. No hepatosplenomegaly. Negative CVAT.EXTREMITIES: Pulses are symmetrical. NO edema.Anesthesia complications: DeniesCSHA Frailty Scale :: 3/10 Managing Well (medical [...] parts of this document, were dictated using [employer] speaking software. A reasonable attempt at proofreading has beenmade to minimize errors. Please call with any questions or corrections.* Name Value Range Interpretation Code Description Data Sera rce(s) Supporting Document(s) ID Date Data Source [id number] 11/16/2020 05:46:21 PM EDT [facility] GARCIA SPEC EXP DATE 11/20/2020ATI ENT ABO/Rh O POSITIVEANTIBODY SCREEN NEGATIVETESTING SITE PERFORMED AT [address] [place], [place] [id number] BANK COMMENT BLOOD TYPE CONFIRMED. Name Value Range Interpretation Code Description Data Sera rce(s) Supporting Document(s) TYPE AND SCREEN [facility] JOSE ID Date Data Source [id number] 11/16/2020 04:03:58 PM EDT [facility] GARCIA Name Value Range Interpretation Code Description Data Sera rce(s) Supporting Document(s) WBC 3.7 10*3/uL (4.1-11.0) L [facility] [place] RBC 4.93 10*6/uL (4.60-6.10) [facility] HGB 15.3 g/dL (13.5-18.0) [facility] HCT 45.9 % (41.0-53.0) [facility] MCV 93.3 fL (80.0-95.0) [facility] MCH 31.0 pg (27.0-32.0) [facility] MCHC 33.2 g/dL (32.0-36.0) [facility] RDW 13.7 % (10.5-14.5) [facility] PLT 149 10*3/uL (150-450) L [facility] MPV 11.0 fL (7.1-10.7) H [facility] ID Date Data Source [id number] 11/16/2020 03:47:26 PM EDT [facility] Name Value Range Interpretation Code Description Data Sera rce(s) Supporting Document(s) SODIUM 140 mmol/L (136-145) [facility] POTASSIUM 4.3 mmol/L (3.6-5.2) [facility] CHLORIDE 104 mmol/L (100-108) [facility] CO2 32 mmol/L (22-31) H [facility] ANION GAP 4 mmol/L (7-16) L [facility] UREA NITROGEN 14 mg/dL (7-24) [facility] CREATININE 1.01 mg/dL (0.80-1.30) [facility] BUN/CREAT RATIO 13.9 RATIO (10.0-20.0) [facility] GLUCOSE 89 mg/dL (70-99) [facility] CALCIUM 9.3 mg/dL (8.4-10.2) [facility] GFR >60 ml/min/1.73m2 (>59) [facility] GFR ( AMER) >60 ml/min/1.73m2 (>59) [facility] GFR INTERPRETATION [facility] --NORMAL KIDNEY FUNCTION OR MILD DISEASE - GFR >OR= 60CHRONIC KIDNEY DISEASE - GFR 15 - 59RENAL FAILURE - GFR <15 Est. GFR calculation based on the MDRDstudy equation, which assumes a steadystate for creatinine. Est. GFR should notbe used for medication dosing. ID Date Data Source [id number] 09/23/2020 04:40:52 PM EDT [facility] ClinicPATIE NT INFORMATIONPatient MRN Name Date of Age Gend*PT [id number] Gallito Hinojosa 1995 25 years M ---PT Location Admission Date/Time Visit ID Attending Provider --- --- --- --- EPI ID CSN Admitting Pro vider [id number] ---[facility] [id number] [facility], [address] (First Floor)[place], [place] [address]Pe.: Fax: Fatient: Gallito Camargo : 1995Date: 09/23/20CARDIOLOGY TELEMEDICINE VISITPatient was identified by name and date of .Verbal consent was obtained from the patient for this telemedicine visit.Patient is aware of the risks, limitations, and benefits of a telemedicinevisit.This telemedicine assessment was conducted remotely with the assistance ofCojoin communication technology. Telephone Only Codes 18272: 21-30 minutesof medical discussion: Telephone Only .Subjective:Gallito [...] history1. Paroxysmal atrial fibrillation status post cryoablation October 9, 2020FAMILY HISTORY: family history includes Healthy, No [...] tablet, Take 100 mg by mouth daily / qd, Disp: , Rfl: Omeprazole 20 MG [...] and benefitsFollow Up cryoablationSignature: Ward Durán MD, [facility], [facility]PITALCardiac Electrophysiology and Arrhythmia ServiceDate: September 23, 2020Time: 4:37 PMThis document or parts of this document, were dictated using [employer]. A reasonable attempt at proofreading has been made to minimize errors.Please call with any questions or corrections. Name Value Range Interpretation Code Description Data Sera rce(s) Supporting Document(s) ID Date Data Source [id number] 08/17/2020 11:31:00 AM EST [facility] Name Value Range Interpretation Code Description Data Sera rce(s) Supporting Document(s) SARS coronavirus 2 RNA Not Detected [facility] [place] This lab was ordered by [facility] and reported by [facility]. ID Date Data Source [id number] 07/09/2020 03:02:00 PM EST [facility] ([facility]) Name Value Range Interpretation Code Description Data Sera rce(s) Supporting Document(s) Calcium [Mass/volume] in Serum or Plasma 9.3 [facility] ([facility]) Sodium 141 [facility] ([facility]) Chloride [Moles/volume] in Serum or Plasma 103 [facility] ([facility]) Carbon dioxide, total [Moles/volume] in Serum or Plasma 32.5 [facility] ([facility]) Potassium [Moles/volume] in Serum or Plasma 4.20 [facility] ([facility]) Glucose 120 74-106 [facility] ([facility]) Blood Urea Nitrogen 11 7-18 [facility] ([facility]) Creatinine 1.05 0.70-1.30 [facility] ([facility]) Glomerular filtration rate/1.73 sq M.pre dicted [Volume Rate/Area] in Serum or Plasma by Creatinine-based formula (MDRD) 99.6 [facility] ([facility]) ID Date Data Source [id number] 06/24/2020 11:06:40 AM EST [facility] ClinicPATIE NT INFORMATIONPatient MRN Name Date of Age Gend*PT [id number] Gallito Hinojosa 1995 25 years M ---PT Location Admission Date/Time Visit ID Attending Provider --- --- --- --- EPI ID CSN Admitting Pro vider [id number] ---[facility] [id number] [facility], [address] (First Floor)[place], [place] [address]Kj.: Fax: Katient: Gallito Camargo : 1995Date: 06/24/20CARDIOLOGY TELEMEDICINE VISITPatient was identified by name and date of .Verbal consent was obtained from the patient for this telemedicine visit.Patient is aware of the risks, limitations, and benefits of a telemedicinevisit.This telemedicine assessment was conducted remotely with the assistance ofCojoin communication technology. Telephone Only Codes 15920: 21-30 minutesof medical discussion: Telephone Only .Subjective:Gallito [...] all. [place] with PVCs. I am not sure he is having anyatrial fibrillation at all. I am not sure any of his symptoms already beencardiac in nature. This may all be anxiety driven. However we will need tocorrelate symptoms to his underlying cardiac rhythm. We will arrange for thepatient to have a 30-day event monitor done through his medical administrator [place]. If the event monitor shows atrial fibrillation [...] monitor shows atrialfibrillationSignature: Ward Durán MD, FAC, [facility]OSPITALCardiac Electrophysiology and Arrhythmia ServiceDate: June 24, 2020Time: 11:02 AMThis document or parts of this document, were dictated using [employer]Endure[employer]. A reasonable attempt at proofreading has been made to minimize errors.Please call with any questions or corrections. Name Value Range Interpretation Code Description Data Sera rce(s) Supporting Document(s) ID Date Data Source [id number] 05/22/2020 12:50:00 PM EST [facility] ([facility] Name Value Range Interpretation Code Description Data Sera rce(s) Supporting Document(s) Troponin Laboratory test result [facility] ([facility]) ID Date Data Source [id number] 05/22/2020 12:50:00 PM EST [facility] Name Value Range Interpretation Code Description Data Sera rce(s) Supporting Document(s) White Blood Count 4.5 4.0-10.0 [facility] ([facility]) Red Blood Count 5.33 4.30-6.10 [facility] ([facility]) Platelets 168 150-450 [facility] ([facility]) Hemoglobin 15.7 [facility] ([facility]) Hematocrit 48.2 [facility] ([facility]) ID Date Data Source [id number] 05/22/2020 12:50:00 PM EST [facility] ([facility] Name Value Range Interpretation Code Description Data Sera rce(s) Supporting Document(s) Calcium [Mass/volume] in Serum or Plasma 9.7 [facility] ([facility]) Sodium 138 [facility] ([facility]) Carbon dioxide, total [Moles/volume] in Serum or Plasma 30 [facility] ([facility]) Potassium [Moles/volume] in Serum or Plasma 4.4 [facility] ([facility]) Chloride [Moles/volume] in Serum or Plasma 104 [facility] ([facility]) Blood Urea Nitrogen 14 7-18 [facility] ([facility]) Glucose 70 70-100 [facility] ([facility]) Glomerular filtration rate/1.73 sq M.pre dicted [Volume Rate/Area] in Serum or Plasma by Creatinine-based formula (MDRD) Laboratory test result [facility] ([facility]) Creatinine 1.06 0.70-1.30 [facility] ([facility]) ID Date Data Source [id number] 04/02/2020 02:04:26 PM EDT [facility] ClinicPATIE NT INFORMATIONPatient MRN Name Date of Age Gend*PT [id number] Gallito Hinojosa 1995 25 years M ---PT Location Admission Date/Time Visit ID Attending Provider --- --- --- --- EPI ID CSN Admitting Pro vider [id number] ---Cardiology Office NoteName: Gallito Camargo Gender: maleDate of : 1995 Age: 25 yearsPrimary Care Provider / Referring Physician: [facility] CareCurrkatheryn HistoryChief Complaint: Follow-up to recent cryoablation for atrial fibrillationHPI:This patient is a 25 years male presents today for follow-up. He has thefollowing medical problem list:1. Paroxysmal atrial fibrillation; status post cryoablation 03/20/2020Patient presents today for follow-up. He tells me that he did have episode ofchest pain and feeling short of breath postprocedure. [facility] He states that those symptoms have [...] file Gets together: Not on file Attends religion service: Not on file Active member of [...] History Narrative Not on fileMedications and AllergiesALLERGIES/SENSITIVITIES: Austin meal and AvocadoCurrent Outpatient Medications: metoprolol tartrate [...] parts of this document, were dictated using [employer]. A reasonable attempt at proofreading has been made to minimize errors.Please call with any questions or corrections. Name Value Range Interpretation Code Description Data Sera rce(s) Supporting Document(s) ID Date Data Source [id number] 03/24/2020 12:46:00 PM EDT [facility] ([facility]) Name Value Range Interpretation Code Description Data Sera rce(s) Supporting Document(s) Free T4 1.05 [facility] ([facility]) Thyroid Stimulating Hormone 0.923 [facility] ([facility]) ID Date Data Source [id number] 03/24/2020 12:46:00 PM EDT [facility] ([facility]) Name Value Range Interpretation Code Description Data Sera rce(s) Supporting Document(s) Aspartate aminotransferase [Enzymatic activity/volume] in Serum or Plasma 24 [facility] ([facility]) Alkaline phosphatase [Enzymatic activity/volume] in Serum or Plasma 7 3 [facility] ([facility]) Alanine aminotransferase [Enzymatic activity/volume] in Serum or Pl asma 45 [facility] ([facility]) Protein [Mass/volume] in Serum or Plasma 7.6 [facility] ([facility]) Bilirubin.direct [Mass/volume] in Serum or Plasma Laboratory test res ult [facility] ([facility]) Bilirubin.total [Mass/volume] in Serum or Plasma 0.4 [facility] ([facility]) Albumin [Mass/volume] in Serum or Plasma 4.0 [facility] ([facility]) Cholesterol [Mass/volume] in Serum or Plasma Laboratory test result [facility] ([facility]) ID Date Data Source [id number] 03/24/2020 12:46:00 PM EDT [facility] ([facility]) Name Value Range Interpretation Code Description Data Sera rce(s) Supporting Document(s) Calcium [Mass/volume] in Serum or Plasma 9.6 [facility] ([facility]) Sodium 138 [facility] Carbon dioxide, total [Moles/volume] in Serum or Plasma 30 [facility] ([facility]) Potassium [Moles/volume] in Serum or Plasma 4.1 [facility] ([facility]) Chloride [Moles/volume] in Serum or Plasma 103 [facility] ([facility]) Blood Urea Nitrogen 11 7-18 [facility] ([facility]) Glucose 95 70-100 [facility] ([facility]) Creatinine 0.98 0.70-1.30 [facility] ([facility]) Glomerular filtration rate/1.73 sq M.pre dicted [Volume Rate/Area] in Serum or Plasma by Creatinine-based formula (MDRD) Laboratory test result [facility] ([facility]) ID Date Data Source [id number] 03/24/2020 12:46:00 PM EDT [facility] ([facility]) Name Value Range Interpretation Code Description Data Sera rce(s) Supporting Document(s) White Blood Count 5.1 4.0-10.0 [facility] ([facility]) Red Blood Count 5.06 4.30-6.10 [facility] ([facility]) Platelets 132 150-450 [facility] Hemoglobin 15.4 [facility] ([facility]) Hematocrit 46.5 [facility] ([facility]) ID Date Data Source [id number] 03/20/2020 10:39:41 AM EDT [facility] Name Value Range Interpretation Code Description Data Sera rce(s) Supporting Document(s) &PDF [facility] WSKVGd8oXmMTSgYg42/ANPqlKDRbi0GnASssSLa4VXdgKTPiV3DpeSzeHBrSOY6xYnDTPVeDNOCsHZUC yZW N0t0XyCJGlZoFDcQG3FS5fVFOkddKpjqM7gQ3uOM6EUEW+Nz5WVT6lm5CeRAu7RDEwl8KwRCknXHx1B8 KllEGeoxWtRunppORGVBGmEAElQ8nnuav7cGHxXsJ6Bx7RRzQde5SxQOXnFDtBzcIrH5/jNhZ+X6D/gc A+dAo0MW+hdTLy7mmyoxvKIZATlfFOC5POXB8yO0EF bIbip2JotDqqEImHWHzDWrNkaj6j6gwJJqEEeS5/oOMwwBgj/tU5UVFV9tB30e4kx3zUPkymu6Fs/TkQ qQdJAjfQjmtqTRS8kyXyDjfwTQloHFCyoSUsOL1o8LrVzetvgUKQExoco+riEnEZMHREBeZotngz/Q7N /ljJ9nmKgXaSnQXao6SwOySIzc+GRryKItYM5EIL0c XQ02N7A1OxlwltKLMxrVVNrU95G8XrPVrSudtJgPJLCV0Y4Hm4325NqjDlDnUOAw2sAqpRNc+p122fce xaMI3qRciz2+X5zJ/IvCsQHqwfSyqzsgBthDtRjNDRDsvG6N9qcjlOFvxonLKPO2cA/GnL6QfWBZAdwZ JXLhl9uWkGggJ2Z0P5WwqS+Ut46y+wtRGcgwYYJd2K h23QSUTsfWGOAmTBoHVANCLNyZDHECHL7x0WwMSYVIXikqR87QrxgwjYD5ugPTWG3DqyyI1HsaFURPTJ [file] P0ZbTnIKRrMLF7ZMPaJaphSs1nSTBPMd3+RHldoCKmeIidCEAJOvP7SvJ4WDdaUAZFCb0A ID Date Data Source [id number] 03/20/2020 09:48:22 AM EDT [facility] NT INFORMATIONPatient MRN Name Date of Age Gend*PT [id number] Gallito Hinojosa 1995 25 years M HOPPT Location Admission Date/Time Visit ID Attending Provider --- --- --- --- EPI ID CSN Admitting Pro vider [id number] ---Arterial Line PlacementPatient location during procedure: ORIndications [...] rce(s) Supporting Document(s) ID Date Data Source [id number] 03/20/2020 09:47:46 AM EDT [facility] NT INFORMATIONPatient MRN Name Date of Age Gend*PT [id number] Gallito Hinojosa 1995 25 years M HOPPT Location Admission Date/Time Visit ID Attending Provider --- --- --- --- EPI ID CSN Admitting Pro vider [id number] ---AirwayPatient location during procedure: ORUrgency: electiveDifficult airway: [...] cmPlacement verified by: chest auscultation and + KFDN6Uegngpronbjj: equal breath sounds bilateral and CTAGrade view: grade I - full view of glottis Name Value Range Interpretation Code Description Data Sera rce(s) Supporting Document(s) ID Date Data Source [id number] 03/20/2020 08:48:41 AM EDT [facility] NT INFORMATIONPatient MRN Name Date of Age Gend*PT [id number] Gallito Hinojosa 1995 25 years M HOPPT Location Admission Date/Time Visit ID Attending ProviderCV-03/20/20 0756 --- Ward Durán MD([id number]) EPI ID CSN Admitting Provider [id number] Ward Durán MD([id number])H&P reviewed. The patient was examined and there are no changes to the H&P.Ward Durán MD8:48 AM Name Value Range Interpretation Code Description Data Sera rce(s) Supporting Document(s) ID Date Data Source [id number] 03/15/2020 08:21:00 AM EDT [facility] Name Value Range Interpretation Code Description Data Sera rce(s) Supporting Document(s) SARS coronavirus 2 RNA [facility] This lab was ordered by [facility] and reported by [facility]. ID Date Data Source [id number] 03/17/2020 03:07:40 AM EDT [facility] Name Value Range Interpretation Code Description Data Sera rce(s) Supporting Document(s) SARS-COV-2 [facility] Not DetectedReference range: Not Detecte d This nucleic acid amplification test was developed and its performance characteristics determined by [employer]. Nucleic acid amplification tests include PCR and [...] in this assay. Performed At: RN [facility] [address] [id number] Jorge Fernando MD Ph:[phone] ID Date Data Source [id number] 03/13/2020 01:31:20 PM EDT [facility] ClinicPATIE NT INFORMATIONPatient MRN Name Date of Age Gend*PT [id number] Gallito Hinoojsa 1995 25 years M OPPT Location Admission Date/Time Visit ID Attending Provider --- --- --- Violeta Ortega([id number]) EPI ID CSN Admitting Provider [id number] ---OUTPATIENT / OBSERVATIONAL SURGICAL OR INVASIVE PROCEDUREName: Gallito Camargo : 1995 Sex: male Care Provider: [facility] CareAttending Physician: Dr. Durán.HISTORY OF PRESENT ILLNESS: 25 years old black male with a 3-year history ofpalpitations, shortness of breath and syncope related to a diagnosis of atrialfibrillation. 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 His last syncopal episode was inD2018. He [...] Laterality Date WISDOM TOOTH EXTRACTION localALLERGIES:AllergiesAllergen Reactions Austin Meal Anaphylaxis Avocado AnaphylaxisMEDICATIONS:Prior to Admission medicationsMedication Sig Start Date End Date Taking? Authorizing Providermetoprolol tartrate (LOPRESSOR) 25 MG tablet Take 12.5 mg by mouth 2 (two) timesa day 1/2 BID Historical Provider, MDrivaroxaban (XARELTO) 20 MG TABS Take 1 tablet (20 mg total) by mouth daily Tostart after procedure --discharge nurse to inform when to start. 03/09/20 Stanton NPsertraline (ZOLOFT) 50 MG tablet Take 50 mg [...] thyromegaly. No carotid bruits.MENTAL / NEUROLOGICAL STATUS: [id number]: Clear to auscultation. No wheezes, rhonchi or crackles.HEART: Rate rhythm regular. S1, S2. No murmur, rub or gallop.ABDOMEN: Bowel sounds positive times four. Soft, non tender. No reboundtenderness. No hepatosplenomegaly. Negative CVAT.EXTREMITIES: Pulses are symmetrical. No edema.Anesthesia complications: DeniesCSHA Frailty Scale :: 1/10 Very Fit (robust, active, energetic, well motivatedand fit.These people commonly exercise regularly and are in the most fit groupfor their age).Stop Bang Questionnaire - Total Score:STOP-Bang Total Score: 2ASSESSMENT: Paroxysmal atrial fibrillationPLAN: Procedure: Atrial fibrillation ablation and transesophageal echo.03/13/2020 1:31 PMPaloma Vigil NPThijennifer document or parts of this document, were dictated using E[employer] software. A reasonable attempt at proofreading has beenmade to minimize errors. Please call with any questions or corrections.* Name Value Range Interpretation Code Description Data Sera rce(s) Supporting Document(s) ID Date Data Source [id number] 03/13/2020 12:40:00 PM EDT [facility] ([facility]) Name Value Range Interpretation Code Description Data Sera rce(s) Supporting Document(s) Red Blood Count 5.10 [facility] ([facility]) White Blood Count 4.0 [facility] ([facility]) Platelets 130 [facility] ([facility]) Hemoglobin 15.9 [facility] ([facility]) Hematocrit 47.3 [facility] ([facility]) ID Date Data Source [id number] 03/13/2020 12:40:00 PM EDT [facility] ([facility]) Name Value Range Interpretation Code Description Data Sera rce(s) Supporting Document(s) Sodium 140 [facility] ([facility]) Carbon dioxide, total [Moles/volume] in Serum or Plasma 33 [facility] ([facility]) Calcium [Mass/volume] in Serum or Plasma 9.5 [facility] ([facility]) Chloride [Moles/volume] in Serum or Plasma 104 [facility] ([facility]) Glucose 85 [facility] ([facility] Blood Urea Nitrogen 11 [facility] ([facility] Potassium [Moles/volume] in Serum or Plasma 4.1 [facility] ([facility]) Glomerular filtration rate/1.73 sq M.pre dicted [Volume Rate/Area] in Serum or Plasma by Creatinine-based formula (MDRD) Laboratory test result [facility] ([facility]) Creatinine 1.02 [facility] ([facility]) ID Date Data Source [id number] 03/13/2020 12:11:56 PM EDT [facility] Name Value Range Interpretation Code Description Data Sera rce(s) Supporting Document(s) EKG [facility] VZHQWw4zUiPXJfBdl6ApHrFgAHAnMV6rhrf5T4Z3jOPsT1AzdPMcu4cwQ6QiQ3KuCBAmQEFEWA0VuGGy jb2 [file] f/reinsurance claim analyst/4///xFPz3/FooV10s59Et8I/Ne1NXet/salS6P97Q+wyqM6LEQ+SyM/9yz+PIRSP/cs/i/P8L/ 331Yx90x0b/9BQ98dhi/aNxyzNTnxnh63DR21un+1P 2exX/4v2fxH/CexZeap+qmZc0mytn/QTvyRkZXTXawMVIdFZpgkJoNJKPEF8WKrXMwByOMzrDZSKRfTt n13CUK978kDsIVaryvj0ke8TUg1qL0h/+AvFIIKkEyqHningzKexZ/Ds0qHgsiPU3/7ln8X+SNf+5Z/J +j+z/8ZN2JznDyXIIhbGRmuMC1pktKI+sRe9JMCURZ MB+HXEqZJVQoO0HM4ir82Pa95IfxaKBeX6E1FT9BHJPSyFsFexUaxK5ySRuERihW+yEIgkJABpsMNhls PpxcyQhkr5T3OkRaOOJDbFK3xhXsAVCRLWIAHOxGXFSPMGoUTOCPMMxJFDESXPNoKUUJeSYBLBIIUdSR [file] 7e60Ky3eCgfvfYd446cAc643Iz8/P98/bq4gaOFhC1x228VFw62o3f2R1t35gLO5k0a3F1xb2i5/Pxv/ KZ9/38/7juzzHuXfym+6P6or1PWlTT+RF1qB1s6dh0zNsGJqPVOpZRyQV1hO1XxcLdo7EddR9HkkA1Vn oN7o3/45h+Fs3mQ5sashvsjizSMrsoMQfyGYryxsUd x7rH1Xltvvsyj7fp9Faiailvj9jj9Jpbkgzsqioh8anWbg6aG5U+ptGN+C8I5G48fbdib3j72G0x48pk MfnYN/8zj705HhQ0rnKSDiBro/7tIwEDypCn13b9Y4A/080M8D/TzQzwPjOzG+E+2szT6UckamJ6NjKo Q63TmM33ws145Zm4DDPYyfnhr/9if/hXmd1Nij4chz 1r0s404TjuBWooMjo0atfCzaljgtjh0cYTucxr50G+B5lB1045uoF8M8wa+6F5Zm3d6LSmg60fR1KiOJ 2KCxlopf6QDRhrjY28567lIAie/1jvz3U+9QD5geK8MZjTjkvApq5p28377c7MAzOU+VI0tQ4FXe/h1w 2iuVA+XycoC+EigZRl3v3e6NO+Cvf2jJ92b3W6715/ xbv2XOvNx3se9imBVkpCgtl+/cC7PAzy3/I//i93x/Pz1Zne/vp legal affairs+raT9sW7SEv/z6SsjgXW0XnAosl2Z [file] 73Ot1h6V72vO+/JVh/bkrBlRQLspvqcmoM8w6S8 [file] 26QHR3IYFwt487A33nH7YhgnApoNn3n76/94mML0+Z eJz+ma3tIlpH8R4hV0KnY20eW+3IagiS+Qw6i/8Z3lViQ0PrdnvQNgerR8izMDZ1cI9mXoyRov/g80s9 ebFcMzIYH2riIwkTwvveOnUniBXYenFBRbYso6TL0DzAMiYHDpG0N4BQXzti3oUQLqCZTvqNRyXpUeCD UWTQ9JlIEnYJ4MQVf4FOPuYVOaVwNsGSKfxuG0ZYJu ZJGgQYHkC5LqfzDqlEMxRERoCv3+HJ9ro4LwZkXxJTOnAah4HC8KbTUgOD6LwJVatB3fxbCiE982inCh MOSdPbakn0EwPDzpRQSAJM6GJYZ5FEP2IUFlMe6+BB6uh3LlVtElYGEeApk2ML6VjKXdu4GrJD1LK5Vr JGJvYBVFVMD0z8DfLWYmirjpthqiS7LhKEH6iO9xKH J4OOZbEPlwXDLvTHBwHiFdPDPdMLlpCSUdDSPmFHLkJFMoUPr7uLGoXT2EV6DvNNYhRAQBVURevoXyZv 2jDDgDMD8vSkQADAmZZGUbAK3MZwWdMAFdNse6AvT2JVMnQ6QnewXrfCKyGONNWMcrSgmlTSMhxZ6nwP btP4SaSNL5c6JuUZ9CN2FpFFDuOHHUHXN3h9LxVTJk kxhpwimzDuFfCWZbIUIuPTRiOP9Pht9utRXqbaMzUIRZRKkzUebgIH7jlKzjgjfaP7NmlSEcBUY+PmVu LT2qjy6+VvJfLFNsGfk4SYRhWFztMKXqCCGwXSMeY0zeKYDnPlKwMDLrXpIkKU9Fi2NtfYYhVk7csrCl YmoKeHJlZgogICAgIDAgICAgMjQKMDAwMDAwMDAwMC T3FMGaCZQyGYmrVMWkWRBoMPeiBVTtLCIwNO7iZlGmESIiLOB3NEQfVNIyEJOknjAOZOVuRRP9YMazXP RdRUEpRWMhJZwiAFBxEMDhPWDzAVW2VQB3DFRzDpNgMDBrWXTnOKCvJWKoEDMomvXKHSRaOADnLYW8WZ WvESFwOWCmYAtoWZAxNDSiIOkeYVKfXHPuNQ6kLvSj GQExFGWnFBvaUVMgUXNdexLLNNOhJLGqEBKiZOKzNYHiANUrEOytWBJdMDHfXTWaXQDhEHAqPW7wHsDp ASGsIML0GNSlUAJyOEPwzvEOOHOhCBGoYAc1MAVrVUKcGFFhVZipNQPwWZIhWYE4ALOaQHYjZD2bFfJq GHBnXAD2HzGfYXDaVRLoawURTTJmDWEtZOG3OcYhYD YsGUTmNWojKZDhKKQcOPpnOKXgSWZlDA2rGqBgGVHjWNDzIOmmPQLpVASlasJQYLBiUEUaTASjEtWaAH WfGZRrDYzcVZNjPCZiGsVvVEKtRAWjGI1rXxYkFPFeOBU3KQubTCSgGMVpnkUKAZByZFMuYHcpRSVwQY BvXEZrMFkqUZHaDXCtWAV4IRSdJOExAJ9iRlApGOPf KWYrYUKsYvO2GtJrEdQCsYChaNiugjt5GBxyJ4w6CEKjCCdyDS9jfqCjMGIfJfjhWe3teVM1ZAEvRdyV Da7Ty3EgqkH8feQePtEbSwJ3MvOlEJ5X ID Date Data Source [id number] 03/13/2020 10:22:00 AM EDT [facility] NGIO CHESTCLINICAL HISTORY: Persistent atrial [...] rce(s) Supporting Document(s) ID Date Data Source [id number] 03/13/2020 07:44:40 PM EDT [facility] SPEC EXP DATE 03/21/2020PATI ENT ABO/Rh O POSITIVEANTIBODY SCREEN NEGATIVETESTING SITE PERFORMED AT [address] [place] [address] Name Value Range Interpretation Code Description Data Sera rce(s) Supporting Document(s) TYPE AND SCREEN [facility] PATIENT ABO/Rh O POSITIVE ID Date Data Source [id number] 03/13/2020 03:58:34 PM EDT [facility] Name Value Range Interpretation Code Description Data Sera rce(s) Supporting Document(s) SODIUM 140 mmol/L (136-145) [facility] POTASSIUM 4.1 mmol/L (3.6-5.2) [facility] CHLORIDE 104 mmol/L (100-108) [facility] CO2 33 mmol/L (22-31) H [facility] ANION GAP 3 mmol/L (7-16) L [facility] UREA NITROGEN 11 mg/dL (7-24) [facility] CREATININE 1.02 mg/dL (0.80-1.30) [facility] BUN/CREAT RATIO 10.8 RATIO (10.0-20.0) [facility] GLUCOSE 85 mg/dL (70-99) [facility] CALCIUM 9.5 mg/dL (8.4-10.2) [facility] GFR >60 ml/min/1.73m2 (>59) [facility] GFR ( AMER) >60 ml/min/1.73m2 (>59) [facility] GFR INTERPRETATION [facility] --NORMAL KIDNEY FUNCTION OR MILD DISEASE - GFR >OR= 60CHRONIC KIDNEY DISEASE - GFR 15 - 59RENAL FAILURE - GFR <15 Est. GFR calculation based on the MDRDstudy equation, which assumes a steadystate for creatinine. Est. GFR should notbe used for medication dosing. ID Date Data Source [id number] 03/13/2020 03:36:51 PM EDT [facility] Name Value Range Interpretation Code Description Data Sera rce(s) Supporting Document(s) WBC 4.0 10*3/uL (4.1-11.0) L [facility] RBC 5.10 10*6/uL (4.60-6.10) [facility] HGB 15.9 g/dL (13.5-18.0) [facility] HCT 47.3 % (41.0-53.0) [facility] MCV 92.6 fL (80.0-95.0) [facility] MCH 31.1 pg (27.0-32.0) [facility] MCHC 33.6 g/dL (32.0-36.0) [facility] RDW 13.8 % (10.5-14.5) [facility] PLT 130 10*3/uL (150-450) L [facility] MPV 10.4 fL (7.1-10.7) [facility] ID Date Data Source [id number] 03/09/2020 02:03:44 PM EDT [facility] ClinicPATIE NT INFORMATIONPatient MRN Name Date of Age Gend*PT [id number] Gallito Hinojosa 1995 25 years M ---PT Location Admission Date/Time Visit ID Attending Provider --- --- --- --- EPI ID CSN Admitting Pro vider [id number] ---Addended by: SUBHA BLAND on: 03/09/2020 02:03 PM Modules accepted: Orders Name Value Range Interpretation Code Description Data Sera rce(s) Supporting Document(s) Procedure Social History Code Duration Value Status Description Data Source(s ) Alcohol intake 03/02/2021 12:00:00 AM EDT Ex-drinker (finding) comp leted Ex- drinker (finding) [facility] Alcohol intake 11/19/2020 12:00:00 AM EDT Ex-drinker (finding) comp leted Ex- drinker (finding) [facility] Alcohol intake 11/16/2020 12:00:00 AM EDT Ex-drinker (finding) comp leted Ex- drinker (finding) [facility] Alcohol intake 09/22/2020 12:00:00 AM EDT Not Currently completed [facility] Cigarette pack-years 09/22/2020 12:00:00 AM EDT UNK completed [facility] Cigarettes smoked current (pack per day) - Reported 09/23/19 12:00:00 AM EDT UNK completed [facility] Smoking 09/22/2020 12:00:00 AM EDT Current every day smoker co mpleted Current every day smoker [facility] Alcohol intake 06/24/2020 12:00:00 AM EST Not Currently completed [facility] Cigarette pack-years 06/24/2020 12:00:00 AM EST UNK completed [facility] Cigarettes smoked current (pack per day) - Reported 06/24/19 12:00:00 AM EST UNK completed [facility] Smoking 06/24/2020 12:00:00 AM EST Current every day smoker co mpleted Current every day smoker [facility] Vital Signs ID Date Data Source UNK Name Value Range Interpretation Code Description Data Source(s) Systolic blood pressure--sitting 136 mm[Hg] 136 mm[Hg] [facility] ([facility]) Ra, large cuff Heart rate 111 /min 111 /min [facility] ([facility]) 108, regular Diastolic blood pressure--sitting 86 mm[Hg] 86 mm[Hg] [facility] ([facility]) Ra, large cuff Body weight 179.00 [lb_av] 179.00 [lb_av] MEDEN T ([facility]) in full uniform 8 lbs Body height 68 [in_i] 68 [in_i] [facility] ([facility]) 5'8" Body mass index (BMI) [Ratio] 27.2 kg/m2 27.2 k g/m2 [facility] ([facility]) Systolic blood pressure 120 mm[Hg] 120 mm[Hg] M EDENT ([facility], ) Diastolic blood pressure 80 mm[Hg] 80 mm[Hg] [facility] ([facility], ) Heart rate 72 /min 72 /min [facility] ([facility] ) Body height 67 [in_i] 67 [in_i] [facility] ([facility]) 5'7" Body weight 168.00 [lb_av] 168.00 [lb_av] MEDEN T ([facility]) Body mass index (BMI) [Ratio] 26.3 kg/m2 26.3 k g/m2 [facility] ([facility], ) [place] body weight 148 [lb_av] 148 [lb_av] MEDEN T ([facility], ) Body temperature 97.7 [degF] 97.7 [degF] [facility] ([facility]) Body height 66 [in_i] 66 [in_i] [facility] ([facility]) 5'6" Body weight 169.50 [lb_av] 169.50 [lb_av] MEDEN T ([facility]) Body mass index (BMI) [Ratio] 27.4 kg/m2 27.4 k g/m2 [facility] ([facility] ) Systolic blood pressure 118 mm[Hg] 118 mm[Hg] [facility] Diastolic blood pressure 66 mm[Hg] 66 mm[Hg] [facility] Heart rate 101 /min 101 /min [facility] Oxygen saturation in Arterial blood by Pulse oximetry 99 % 99 % [facility] Body temperature 36.5 Delphine 36.5 Delphine [facility] Respiratory rate 18 /min 18 /min [facility] Body weight 76.794 kg 76.794 kg [facility] Body mass index (BMI) [Ratio] 26.52 kg/m2 26.52 kg/m2 [facility] Systolic blood pressure 121 mm[Hg] 121 mm[Hg] [facility] Diastolic blood pressure 78 mm[Hg] 78 mm[Hg] [facility] Heart rate 85 /min 85 /min [facility] Body temperature 36.28 Delphine 36.28 Delphine [facility] Respiratory rate 16 /min 16 /min [facility] Body height 170.2 cm 170.2 cm [facility] Body weight 76.658 kg 76.658 kg [facility] Body mass index (BMI) [Ratio] 26.47 kg/m2 26.47 kg/m2 [facility] Oxygen saturation in Arterial blood by Pulse oximetry 100 % 100 % [facility] Body weight 175.00 [lb_av] 175.00 [lb_av] MEDEN T ([facility]) in full uniform 8 lbs Body height 68 [in_i] 68 [in_i] [facility] 5'8" Body mass index (BMI) [Ratio] 26.6 kg/m2 26.6 k g/m2 [facility] ([facility]) Systolic blood pressure--sitting 124 mm[Hg] 124 mm[Hg] [facility] ([facility]) Ra, large cuff Diastolic blood pressure--sitting 72 mm[Hg] 72 mm[Hg] [facility] ([facility]) Ra, large cuff Body height 68 [in_i] 68 [in_i] [facility] ([facility]) 5'8" Body mass index (BMI) [Ratio] 26.3 kg/m2 26.3 k g/m2 [facility] ([facility]) Systolic blood pressure--sitting 122 mm[Hg] 122 mm[Hg] [facility] ([facility]) Ra, large cuff Body weight 173.00 [lb_av] 173.00 [lb_av] MEDEN T ([facility]) in full uniform 6 lbs Diastolic blood pressure--sitting 72 mm[Hg] 72 mm[Hg] [facility] ([facility]) Ra, large cuff Body weight 172.00 [lb_av] 172.00 [lb_av] MEDEN T ([facility]) in full uniform Body height 68 [in_i] 68 [in_i] [facility]) 5'8" Systolic blood pressure--sitting 118 mm[Hg] 118 mm[Hg] [facility] ([facility]) Ra, large cuff Diastolic blood pressure--sitting 78 mm[Hg] 78 mm[Hg] [facility] ([facility]) Ra, large cuff Body mass index (BMI) [Ratio] 26.1 kg/m2 26.1 k g/m2 [facility] ([facility]) Heart rate 72 /min 72 /min [facility] ([facility]) regular Respiratory rate 16 /min 16 /min [facility] ( [facility]) nonlabored Heart rate 71 /min 71 /min [facility] ([facility]) Systolic blood pressure--sitting 118 mm[Hg] 118 mm[Hg] [facility] ([facility]) large cuff, Ra Diastolic blood pressure--sitting 80 mm[Hg] 80 mm[Hg] [facility] ([facility]) large cuff, Ra Body weight 175.00 [lb_av] 175.00 [lb_av] MEDEN T ([facility]) Body height 68 [in_i] 68 [in_i] [facility] ([facility]) 5'8" Body mass index (BMI) [Ratio] 26.6 kg/m2 26.6 k g/m2 [facility] ([facility]) Patient Treatment Plan of Care Planned Activity Planned Date Details Description Data Source (s) Flecainide Acetate 50 MG Oral Tablet 03/03/2021 12:00:00 AM EDT [facility] rivaroxaban 20 MG Oral Tablet 12/23/2020 12:00:00 AM EDT [facility] normal saline flush 0.9 % injection 3 mL 11/19/2020 02:00:00 PM EDT [facility] normal saline flush 0.9 % injection 3 mL 11/19/2020 02:00:00 PM EDT [facility] normal saline flush 0.9 % injection 3 mL 11/19/2020 02:00:00 PM EDT [facility] fentaNYL Citrate (PF) (SUBLIMAZE) injection 25 mcg 11/19/2020 01 :20:51 PM EDT [facility] HYDROmorphone (DILAUDID) injection 0.5 mg 11/19/2020 01:20:51 PM ED T [facility] Albuterol 0.833 MG/ML / Ipratropium Morse 0.167 MG/M L Inhalant Solution 11/19/2020 01:20:51 PM EDT [facility] 10 ML Atropine Sulfate 0.1 MG/ML Prefilled Syringe 11/19/2020 01 :20:50 PM EDT [facility] rivaroxaban 20 MG Oral Tablet 03/24/2020 12:00:00 AM EDT [facility]
[2021-04-25 12:41] LABS: BASO % 0.4 % (0.0-1.0); EOS # 0.2 10^3/uL (0.0-0.5); EOS % 2.5 % (0.0-3.0); HEMATOCRIT 45.4 % (42.0-52.0); HEMOGLOBIN 14.8 g/dl (13.5-17.5); LYMPH % 27.3 % (24.0-44.0); MEAN CORPUSCULAR HEMOGLOBIN 30.1 pg (27.0-33.0); MEAN CORPUSCULAR HGB CONC 32.6 g/dl (32.0-36.5); MEAN CORPUSCULAR VOLUME 92.5 fl (80.0-96.0); MONO # 0.8 10^3/uL (0.0-0.8); MONO % 11.7 % (2.0-8.0); NEUTROPHILS # 4.1 10^3/uL (1.5-8.5); NEUTROPHILS % 57.7 % (36.0-66.0); PLATELET COUNT, AUTOMATED 154 10^3/uL (150-450); RED BLOOD COUNT 4.91 10^6/uL (4.30-6.10); WHITE BLOOD COUNT 7.2 10^3/uL (4.0-10.0)
[2021-04-25] MEDS ORDERED: ISOVUE-370 76% 100ML VIAL As Ordered ONE (12:52)
--- NOTE | 2021-04-25 13:43 | REPVR ---
PROCEDURE INFORMATION: Exam: MR Lumbar Spine Without Contrast Exam date and time: 04/25/2021 12:59 PM Age: 26 years old Clinical indication: Lumbago with sciatica; Patient HX: PT states losing bladder and bowel function with no recent injury increase pain, along with pain going down left side and headache on left side; Additional info: Loss of bowel/bladder with low back pain TECHNIQUE: Imaging protocol: Multiplanar magnetic resonance images of the lumbar spine without intravenous contrast. COMPARISON: MRI-Spine, L.S. without con 01/27/2021 1:35 PM FINDINGS: Vertebrae: Straightening of the normal lumbar lordosis may be related to patient position or due to muscle spasm. Disc spaces: There is loss of T2 signal within the L4-L5 and L5-S1 intervertebral disc spaces, related to degenerative disc disease. Spinal cord: Normal signal. No cord compression. The conus extends to L1. L1-L2: No significant disc disease. No significant spinal canal stenosis. No neural foraminal stenosis. L2-L3: No significant disc disease. No significant spinal canal stenosis. No neural foraminal stenosis. L3-L4: No significant disc disease. No significant spinal canal stenosis. No neural foraminal stenosis. L4-L5: There is a bulge which extends into the left neural foramina but does not reach the left L4 root. No significant spinal canal stenosis. No neural foraminal stenosis. L5-S1: Cassi is there is a small bulge without mass effect. No significant spinal canal stenosis. No neural foraminal stenosis. Soft tissues: Unremarkable. IMPRESSION: 1. There are stable mild degenerative changes. 2. There is no lumbar disc herniation or central stenosis. 3. Straightening of the normal lumbar lordosis may be related to patient position or due to muscle spasm. Electronically signed by: Dangelo Jean On 04/25/2021 13:43:33 PM
--- NOTE | 2021-04-25 14:16 | REP ---
INDICATION: headache. COMPARISON: None. TECHNIQUE: Imaging protocol: Computed tomography of the abdomen and pelvis without and with IV contrast. Contiguous 3 mm thick axial projection images were obtained through the abdomen and pelvis. 2D sagittal and coronal reconstructions were performed. Radiation optimization: All CT scans at this facility use at least one of these dose optimization techniques: automated exposure control; mA and/or kV adjustment per patient size (includes targeted exams where dose is matched to clinical indication); or iterative reconstruction. Contrast material: ISOVUE 370; Contrast volume: 100 ml; Contrast route: INTRAVENOUS (IV). FINDINGS: Heart and lung bases: The lung bases are clear. There are no pleural effusions. The heart size is normal. There is no pericardial effusion. Liver: Normal. Gallbladder: The gallbladder is evacuated. Spleen: Normal. Pancreas: Normal. Adrenal glands: Normal. Kidneys/bladder: The kidneys enhance normally. The urinary bladder has a normal unenhanced appearance. Pelvic structures: The prostate gland appears normal in size. The seminal vesicles appear normal. There is no free fluid the pelvis. There are multiple reactive inguinal lymph nodes bilaterally. There is no pelvic lymphadenopathy. GI tract: There is stool throughout the colon. There is a normal appendix demonstrated. Abdominal wall and mesentery: There is an 11 mm in diameter umbilical hernia containing normal fat. There is no mesenteric or retroperitoneal lymphadenopathy. Abdominal aorta and vascular structures: The abdominal aorta, inferior vena cava, and portal venous system are normal. Bony structures: There is a circumferential disc protrusion at L5-S1. There is 2 mm of retrolisthesis of L5 on S1. The SI joints and hips are normal. IMPRESSION: 1. Mild constipation. 2. Umbilical hernia containing normal fat. 3. Degenerative disc disease, L5-S1. <Electronically signed by Henrry Starks > 04/25/21 2055
--- NOTE | 2021-04-25 14:22 | REP ---
INDICATION: headache. COMPARISON: None. TECHNIQUE: Contiguous 5 mm thick axial projection images were obtained of the head. 2D coronal reconstructions were performed. FINDINGS: There is no evidence of acute intracranial hemorrhage or infarction. There are no abnormal intracranial masses or mass effects. The skull base and calvarium are normal. The visualized extracranial soft tissues are normal. IMPRESSION: Normal CT head without contrast. <Electronically signed by Henrry Starks > 04/25/21 [id number]
[2021-04-25] MEDS ORDERED: diazePAM 5MG TABLET PO ONE (14:55)
[2021-04-25 16:20] VITALS: BP 125/68
[2021-04-25] MEDS ORDERED: **NOTE PATIENT COMMENT** MISC XX SCH (21:00)
== END 2021-04-25 16:24 | disposition home or self-care (01) ==
LOC: M ED 11:11
DX: M51.36 Other intervertebral disc degeneration, lumbar region (principal); K59.00 Constipation, unspecified; I10 Essential (primary) hypertension; I48.91 Unspecified atrial fibrillation; I25.2 Old myocardial infarction; Z91.018 Allergy to other foods; Z79.899 Other long term (current) drug therapy; Z79.01 Long term (current) use of anticoagulants; F17.210 Nicotine dependence, cigarettes, uncomplicated
CPT/HCPCS: 36415; 70450; 72148; 74177; 80047; 81001; 82550; 85025; 99284; Q9967

== ENCOUNTER 2021-05-05 13:13 | Emergency (ER) | payer OTHER ==
[~2021-05-05] VITALS: Ht 170.2 cm; Wt 88.5 kg
--- OUTSIDE RECORDS SUMMARY | 2021-05-05 13:23 | CCD | Continuity of Care Document ---
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 Name Role Phone Kel Adams MD AUT[facility] [phone] [facility] [phone] Ward Durán MD [facility] [phone] Nicole Simpson MD [facility] [phone] Problems Active Problems Provider Date Paroxysmal atrial [...] Exercise Type/Frequency Does housework twice a w [place] Exercise Type/Frequency Does gardening 4 times a [...] Date Facility Test Result H/L Range Note BMP 04/25/2021 [facility] - not interfaced (315)- - Calcium Ser/Plasma Mass/Vol 4.6 Sodium 139 Carbon Dioxide Ser/Plasm 27.0 Chloride Serum/Plasma 99 Potassium 3.7 Glucose 128 High 83-110 Blood Urea Nitrogen 11 7-18 Creatinine 0.9 0.6-1.0 G F R -- CBC without Differential 04/25/2021 [facility] - not inter faced (315)- - White Blood Count 7.2 5.0-10.0 Red Blood Count 4.91 4.00-5.40 Platelets 154 Low 172-450 Hemoglobin 14.8 Hematocrit 45.4 Cardiac Injury Profile 04/19/2021 [facility] CPK 555 CPK-MB 1.7 MB/CK Relative 0.31 Liver Function Test/ Liver Hep 04/19/2021 [facility] Ast/Sgot 27 Alt/SGPT 67 Alk Phos 72 Albumin 3.6 Total Bilirubin 0.3 Total Protein 6.9 A/G Ratio 1.1 Laboratory test finding 04/19/2021 [facility] Troponin <0.02 Basic Metabolic Panel 04/19/2021 [facility] Glucose 105 Blood Urea Nitrogen 15 Creatinine 0.90 Sodium 141 Potassium 3.7 Chloride 106 Carbon Dioxide 31 Calcium 8.8 GFR (Calculated) >60.0 Laboratory test finding 04/19/2021 [facility] NT Probnp QN Ser/Plas 12 Thyroid Stimulating Hormone 0.680 Free T4 0.74 C-Reactive Protein QN 0.30 CBC without Differential 11/30/2020 [facility] [...] 2.1 Procedures Date Code Description Status 04/15/2021 22517 Implantable Loop Recorder System , Review And Report Completed 03/25/2021 33564 Office/Outpatient Established Mo d MDM 30-39 Min Completed 03/25/2021 38070 ECG 12-Lead Completed 03/12/2021 44471 Implantable Loop Recorder System , Review And Report Completed 02/08/2021 23557 Implantable Loop Recorder System , Review And Report Completed 01/06/2021 37681 Implantable Loop Recorder System , Review And Report Completed 12/03/2020 36599 Implantable Loop Recorder System , Review And Report Completed 10/27/2020 99575 Implantable Loop Recorder System , Review And [...] Clinic 03/25/2021 I48.0 Paroxysmal atrial fibrillation C MARYAN [...]
--- OUTSIDE RECORDS SUMMARY | 2021-05-05 13:25 | CCD ---
Author Author [facility] Organization [facility] Address Unknown Phone Unavailable Care Team Providers Care Appraiser Personal Property Name Role Phone Deny, L Olimpia PA [...] Deny, L Olimpia PA Unavailable Unavailable UNKNOWN, [facility] Unavailable Unavailable Rodney Candelario MD Unavailable Unavailable Rodney Candelario MD Unavailable Unavailable Rodney Candelario MD Unavailable Unavailable Rodney Candelario MD Unavailable Unavailable Rodney Candelario MD Unavailable Unavailable Rodney Candelario MD Unavailable Unavailable Estrella, L Scooter ULLOA [...] Gambee Ojy PA-C Unavailable Unavailable Sweet, Gambee Joy PA-C [...] Peck PA-C Unavailable Unavailable ZABOROWSKI, J SUBHA CONSTRUCTION TECHNOLOGY INSTRUCTOR Unavailable Unavailable ZABOROWSKI, J SUBHA CONSTRUCTION TECHNOLOGY INSTRUCTOR Unavailable Unavailable ZABOROWSKI, J SUBHA CONSTRUCTION TECHNOLOGY INSTRUCTOR Unavailable Unavailable ZABOROWSKI, J SUBHA CONSTRUCTION TECHNOLOGY INSTRUCTOR Unavailable Unavailable ZABOROWSKI, J SUBHA CONSTRUCTION TECHNOLOGY INSTRUCTOR Unavailable Unavailable ZABOROWSKI, J SUBHA CONSTRUCTION TECHNOLOGY INSTRUCTOR Unavailable Unavailable ZABOROWSKI, J SUBHA CONSTRUCTION TECHNOLOGY INSTRUCTOR Unavailable Unavailable ZABOROWSKI, J SUBHA CONSTRUCTION TECHNOLOGY INSTRUCTOR Unavailable Unavailable ZABOROWSKI, J SUBHA CONSTRUCTION TECHNOLOGY INSTRUCTOR Unavailable Unavailable ZABOROWSKI, J SUBHA CONSTRUCTION TECHNOLOGY INSTRUCTOR Unavailable Unavailable ZABOROWSKI, J SUBHA CONSTRUCTION TECHNOLOGY INSTRUCTOR Unavailable Unavailable ZABOROWSKI, J SUBHA CONSTRUCTION TECHNOLOGY INSTRUCTOR Unavailable Unavailable ZABOROWSKI, J SUBHA CONSTRUCTION TECHNOLOGY INSTRUCTOR Unavailable Unavailable ZABOROWSKI, J SUBHA CONSTRUCTION TECHNOLOGY INSTRUCTOR Unavailable Unavailable ZABOROWSKI, J SUBHA CONSTRUCTION TECHNOLOGY INSTRUCTOR Unavailable Unavailable ZABOROWSKI, J SUBHA CONSTRUCTION TECHNOLOGY INSTRUCTOR Unavailable Unavailable ZABOROWSKI, J SUBHA CONSTRUCTION TECHNOLOGY INSTRUCTOR Unavailable Unavailable ZABOROWSKI, J SUBHA CONSTRUCTION TECHNOLOGY INSTRUCTOR Unavailable Unavailable ZABOROWSKI, J SUBHA CONSTRUCTION TECHNOLOGY INSTRUCTOR Unavailable Unavailable ZABOROWSKI, J SUBHA CONSTRUCTION TECHNOLOGY INSTRUCTOR Unavailable Unavailable ZABOROWSKI, J SUBHA CONSTRUCTION TECHNOLOGY INSTRUCTOR Unavailable Unavailable ZABOROWSKI, J SUBHA CONSTRUCTION TECHNOLOGY INSTRUCTOR Unavailable Unavailable ZABOROWSKI, J SUBHA CONSTRUCTION TECHNOLOGY INSTRUCTOR Unavailable Unavailable ZABOROWSKI, J SUBHA CONSTRUCTION TECHNOLOGY INSTRUCTOR Unavailable Unavailable ZABOROWSKI, J SUBHA CONSTRUCTION TECHNOLOGY INSTRUCTOR Unavailable Unavailable ZABOROWSKI, J SUBHA CONSTRUCTION TECHNOLOGY INSTRUCTOR Unavailable Unavailable ZABOROWSKI, J SUBHA CONSTRUCTION TECHNOLOGY INSTRUCTOR Unavailable Unavailable ZABOROWSKI, J SUBHA CONSTRUCTION TECHNOLOGY INSTRUCTOR Unavailable Unavailable ZABOROWSKI, J SUBHA CONSTRUCTION TECHNOLOGY INSTRUCTOR Unavailable Unavailable ZABOROWSKI, J SUBHA CONSTRUCTION TECHNOLOGY INSTRUCTOR Unavailable Unavailable ZABOROWSKI, J SUBHA CONSTRUCTION TECHNOLOGY INSTRUCTOR Unavailable Unavailable ZABOROWSKI, J SUBHA CONSTRUCTION TECHNOLOGY INSTRUCTOR Unavailable Unavailable ZABOROWSKI, J SUBHA CONSTRUCTION TECHNOLOGY INSTRUCTOR Unavailable Unavailable ZABOROWSKI, J SUBHA CONSTRUCTION TECHNOLOGY INSTRUCTOR Unavailable Unavailable ZABOROWSKI, J SUBHA CONSTRUCTION TECHNOLOGY INSTRUCTOR Unavailable Unavailable ZABOROWSKI, J SUBHA CONSTRUCTION TECHNOLOGY INSTRUCTOR Unavailable Unavailable ZABOROWSKI, J SUBHA CONSTRUCTION TECHNOLOGY INSTRUCTOR Unavailable Unavailable ZABOROWSKI, J SUBHA CONSTRUCTION TECHNOLOGY INSTRUCTOR Unavailable Unavailable ZABOROWSKI, J SUBHA CONSTRUCTION TECHNOLOGY INSTRUCTOR Unavailable Unavailable ZABOROWSKI, J SUBHA CONSTRUCTION TECHNOLOGY INSTRUCTOR Unavailable Unavailable ZABOROWSKI, J SUBHA CONSTRUCTION TECHNOLOGY INSTRUCTOR Unavailable Unavailable ZABOROWSKI, J SUBHA CONSTRUCTION TECHNOLOGY INSTRUCTOR Unavailable Unavailable ZABOROWSKI, J SUBHA CONSTRUCTION TECHNOLOGY INSTRUCTOR Unavailable Unavailable ZABOROWSKI, J SUBHA CONSTRUCTION TECHNOLOGY INSTRUCTOR Unavailable Unavailable ZABOROWSKI, J SUBHA CONSTRUCTION TECHNOLOGY INSTRUCTOR Unavailable Unavailable ZABOROWSKI, J SUBHA CONSTRUCTION TECHNOLOGY INSTRUCTOR Unavailable Unavailable ZABOROWSKI, J SUBHA CONSTRUCTION TECHNOLOGY INSTRUCTOR Unavailable Unavailable ZABOROWSKI, J SUBHA CONSTRUCTION TECHNOLOGY INSTRUCTOR Unavailable Unavailable ZABOROWSKI, J SUBHA CONSTRUCTION TECHNOLOGY INSTRUCTOR Unavailable Unavailable Al Mudamgha, A Ward ULLOA Unavailable Unavailable Al Mudamgha, A Ward ULLOA Unavailable Unavailable Al Mudamgha, A Ward ULLOA Unavailable Unavailable Al Mudamgha, A Ward ULLOA Unavailable Unavailable Al Mudamgha, A Ward ULLOA Unavailable Unavailable Al Mudamgha, A Ward ULLOA Unavailable Unavailable Al Mudamgha, A Ward ULLOA Unavailable Unavailable Al Mudamgha, A Ward ULLOA Unavailable Unavailable Al Mudamgha, A Ward ULLAO Unavailable Unavailable Al Mudamgha, A Ward MD [...] A Ali MD Unavailable Unavailable Georgette, Itzel CONSTRUCTION TECHNOLOGY INSTRUCTOR Unavailable Unavailable Georgette, Itzel CONSTRUCTION TECHNOLOGY INSTRUCTOR Unavailable Unavailable Georgette, Itzel CONSTRUCTION TECHNOLOGY INSTRUCTOR Unavailable Unavailable Georgette, Itzel CONSTRUCTION TECHNOLOGY INSTRUCTOR Unavailable Unavailable Georgette, Itzel CONSTRUCTION TECHNOLOGY INSTRUCTOR Unavailable Unavailable Georgette, Itzel CONSTRUCTION TECHNOLOGY INSTRUCTOR Unavailable Unavailable Georgette, Itzel CONSTRUCTION TECHNOLOGY INSTRUCTOR Unavailable Unavailable Georgette, Itzel CONSTRUCTION TECHNOLOGY INSTRUCTOR Unavailable Unavailable CHANLIECCO, C GIORGI MD Unavailable [...] by Article 27-F of the [facility] Public Health law. If you continue you may have access to information: Regarding HIV / AIDS; Provided by facilities licensed or operated by the [facility] Office of Mental Health; or Provided by the [facility] Office for People With Developmental Disabilities. If such information is present, then the following [facility] mandated warning applies: This information has been [...] law may result in a fine or correction sentence or both. A general authorization for the release of medical or other information is NOT sufficient authorization for further disc losure. Allergies and Adverse Reactions Type Description Substance Reaction Status Data Source(s ) Propensity to adverse reactions AVOCADO avocado allergen ic extract Anaphylaxis High Active [facility] High Propensity to adverse reactions ALMOND MEAL [place] Meal Anaphylax is High Active [facility] High Family History Family Member Name Family Member Gender Family Member Status Date o f Status Description Data Source(s) Unknown Male Problem [facility] ([facility]) Encounters Encounter Providers Location Date Indications Data Source(s ) Outpatient Attender: OFELIA STEINBERG Main Office 03/25/2021 0 3:00:00 PM EDT [facility] ([facility]) Outpatient Attender: Ward Holt MD BF-BF 03/03/2021 12:00:0 0 AM EDT [facility] Emergency Attender: Rodney Candelario MDConsultant: ELIZABETH WATSON 02/23/2021 08:45:00 AM EDT - 02/23/2021 09:55:[address] [facility] ital Patient discharged. Outpatient Attender: Ward Holt MD BF[facility] 02/17/2021 07:55:5 7 AM EDT [facility] Outpatient Attender: Scooter Estrella MD Physical Therapy 01/18/2021 0 9:15:00 AM EDT [facility] Emergency Attender: Rodney Candelario MD 01/17/2021 02:19:00 PM EDT - 01/17/2021 06:26:00 PM EDT [facility] Patient discharged. Emergency Attender: GIORGI MENJIVAR MD 01/12/2021 11:26:00 AM EDT - 01/12/2021 12:47:00 PM EDT [facility] Patient discharged. Outpatient BF-BF.[facility] 12/23/2020 12:00:00 AM EDT [facility] Outpatient Attender: Joy Peck PA-C BF-BF.[facility] 12:00:00 AM EDT - 12/10/2020 12:14:04 PM EDT [facility] Outpatient Attender: Ward Holt MD Admitter: Ward Holt MDReferrer: Itzel Palomino CONSTRUCTION TECHNOLOGY INSTRUCTOR ES1-SJ.[facility] 11/19/2020 10:35:00 AM EDT - 11/19/2020 04:00:00 PM EDT [facility] Patient discharged. Outpatient Attender: Ward Holt MDReferrer: Ward Cisse MD MOB-MOB.PAT 11/16/2020 08:33:23 AM EDT - 11/16/2020 09:11:20 AM EDT [facility] Outpatient Referrer: Ward Holt MD MOB-MOB.PAT 11/16/2020 1 2:00:00 AM EDT [facility] Outpatient [id number] 10/30/2020 08:14:38 AM EDT [facility] Outpatient [id number] 10/21/2020 03:27:49 PM EDT [facility] Outpatient [id number] 10/16/2020 03:52:09 PM EDT [facility] Outpatient Attender: Ward Holt MD BF-BF.[facility] 09/23/2020 07:57:5 3 AM EDT [facility] Outpatient [id number] 09/17/2020 03:27:44 PM EDT [facility] Outpatient [id number] 09/01/2020 01:54:08 PM EDT [facility] Outpatient Attender: OFELIA STEINBERG Main Office 08/11/2020 1 1:45:00 AM EST [facility] ([facility]) Outpatient Attender: OFELIA STEINBERG Main Office 08/03/2020 0 9:15:00 AM EST [facility] ([facility]) Outpatient Attender: Ward Holt MD BF-BF.[facility] 06/24/2020 12:00:0 0 AM EST [facility] Outpatient Attender: OFELIA STEINBERG Main Office 06/15/2020 0 8:15:00 AM EST [facility] ([facility]) Outpatient BF[facility] 04/30/2020 12:00:00 AM EST [facility] Outpatient Attender: SUBHA BLAND NP BF-BF 04/02/2020 12:00:0 0 AM EDT [facility] Outpatient Attender: Ward Holt MDAdmitter: Ward Cisse MD ES1-SJ.[facility] 03/20/2020 07:56:00 AM EDT - 03/20/2020 01:57:00 PM EDT [facility] Patient discharged. Outpatient Attender: Olimpia STEINBERG Main Office 03/16/2020 09:15:0 0 AM EDT [facility] ([facility]) Outpatient Referrer: Ward Holt MD MOB-MOB.PAT 09/2019 11:08:31 AM EDT - 03/15/2020 11:08:36 AM EDT [facility] Outpatient Referrer: Ward Holt MD 03/13/2020 09:52:0 7 AM EDT [facility] Outpatient Attender: Ward Holt MDReferrer: Ward Cisse MD MOB-MOB.PAT 03/13/2020 08:53:42 AM EDT - 03/13/2020 09:53:39 AM EDT [facility] BF-BF 03/09/2020 02:03:44 PM EDT [facility] Immunizations Vaccine Date Status Description Data Source(s) 10/27/2020 12:00:00 AM EDT completed <td I D="[id number]">Covid-19 (Pfizer)</td><td>10/27/2020, 08/25/2020</td><td></td> [facility] COVID-19 VACCINE Pfizer 10/27/2020 12:00:00 AM EDT completed [facility] Vaccine Series Complete: YESThis Data wa s Submitted to [facility] Via [employer]. 208 08/25/2020 12:00:00 AM EDT completed <td I D="[id number]">Covid-19 (Pfizer)</td><td>10/27/2020, 08/25/2020</td><td></td> [facility] COVID-19 VACCINE Pfizer 08/25/2020 12:00:00 AM EDT completed [facility]IS Vaccine Series Complete: YESThis Data wa s Submitted to [facility] Via [employer]. Medications Medication Brand Name Start Date Product Form Dose Route Admi nistrative Instructions Pharmacy Instructions Status Indications Reaction Description Data Source(s) gabapentin 300 MG Oral Capsule Gabapentin 04/14/2021 12:00:00 AM EDT ORAL active [facility] ([facility]) Mirtazapine 7.5 MG Oral Tablet Mirtazapine 04/14/2021 12:00:00 AM EDT ORAL active [facility] ([facility]) Omeprazole 20 MG Delayed Release Oral Capsule Omeprazole 03/24/2021 12:00:00 AM EDT ORAL completed [facility] ([facility]) duloxetine 30 MG Delayed Release Oral Capsule [Cymbalta] Cym bishop 03/24/2021 12:00:00 AM EDT ORAL active M [facility] ([facility]) gabapentin 600 MG Oral Tablet Gabapentin 03/24/2021 12:00:00 AM EDT ORAL completed [facility] ([facility]) Flecainide Acetate 50 MG Oral Tablet flecainide (TAMBO COR) 50 MG tablet flecainide (TAMBOCOR) 50 MG tablet 03/03/2021 12:00:00 AM EDT 50 mg Oral active Take 1 tablet (50 mg total) by m outh 2 (two) times a day [facility] 8 HR Acetaminophen 650 MG Extended Release Oral Tablet [Tyle nol] Tylenol 8 Hour 02/01/2021 12:00:00 AM EDT active [facility] ([facility]) 24 HR metoprolol succinate 200 MG Extended Release Ora l Tablet Metoprolol Succinate ER 01/21/2021 12:00:00 AM EDT ORAL completed [facility] ([facility]) rivaroxaban 20 MG Oral Tablet rivaroxaban (Xarelto) 20 MG TABS rivaroxaban (Xarelto) 20 MG TABS 12/23/2020 12:00:00 AM EDT 20 mg Oral active Take 1 tablet (20 mg total) by mouth daily [facility] normal saline flush 0.9 % injection 3 mL [id number] 11/19/2020 02:00:00 PM EDT 3 mL Intravenous active 3 mL , Intravenous, Every 8 hours (scheduled), First dose on Kendra 11/19/20 at 1400, PACU (only)
flush per protocol, D/C Main IV fluid if appropriate
[facility] Medication administered onsite normal saline flush 0.9 % injection 3 mL [id number] 11/19/2020 02:00:00 PM EDT 3 mL Intravenous active 3 mL , Intravenous, Every 8 hours (scheduled), First dose on Kendra 11/19/20 at 1400, Pre-op
Rapid push positive pressure flushing shall be performed with a 10 cc normal saline syringe to check the PATENCY of a PIV site prior to any infusion therapy initiation unless resistance is met.
[facility] Medication administered onsite normal saline flush 0.9 % injection 3 mL [id number] 11/19/2020 02:00:00 PM EDT 3 mL Intravenous active 3 mL , Intravenous, Every 8 hours (scheduled), First dose on Kendra 11/19/20 at 1400, Pre-op
Rapid push positive pressure flushing shall be performed with a 10 cc normal saline syringe to check the PATENCY of a PIV site prior to any infusion therapy initiation unless resistance is met.
[facility] Medication administered onsite 1 ML Ketorolac Tromethamine 30 MG/ML Car tridge ketorolac (TORADOL) injection 30 mg ketorolac (TORADOL) injection 30 mg 11/19/2020 01:46:43 PM EDT 30 mg Intravenous completed 30 mg, Intrav enous, Once as needed, severe pain (7-10), Starting on Kendra 11/19/20 at 1346, For 1 dose [facility] Medication administered onsite HYDROmorphone (DILAUDID) injection 0.5 mg [id number] 11/19/2020 01:20:51 PM EDT 0.5 mg Intravenous active 0.5 mg, Intravenous, Every 5 min PRN, severe pain (7-10), Starting on Kendra 11/19/20 at 1320, For 5 doses, PACU (only) [facility] Medication administered onsite ondansetron (ZOFRAN) injection 4 mg [id number] 11/19/2020 01:20:5 1 PM EDT 4 mg Intravenous completed 4 mg, In travenous, Once as needed, nausea, vomiting, Starting on Kendra 11/19/20 at 1320, For 1 dose, PACU (only)
If not given in last 4 hours
[facility] Medication administered onsite Albuterol 0.833 MG/ML / Ipratropium Brom maxine 0.167 MG/ML Inhalant Solution ipratropium-albuterol (DUO-NEB) 0.5-2.5 mg/mL nebulizer solution 3 mL ipratropium-albuterol (DUO-NEB) 0.5-2.5 mg/mL nebulizer solution 3 mL 11/19/2020 01:20:51 PM EDT 3 mL Inhalation active 3 mL, Inhalation, Once as needed, shortness of breath, Starting on Kendra 11/19/20 at 1320, For 1 dose, PACU (only) [facility] Medication administered onsite fentaNYL Citrate (PF) (SUBLIMAZE) injection 25 mcg [id number] 11/19/2020 01:20:51 PM EDT 25 ug Intravenous active 25 mcg, Intravenous, Every 5 min PRN, moderate pain (4 to 6), Starting on Kendra 11/19/20 at 1320, For 5 doses, PACU (only) [facility] Medication administered onsite 10 ML [...] or 0.04 mg/kg. Max of 6 doses
[facility] Medication administered onsite protamine injection [id number] 11/19/2020 12:33:22 PM EDT active As needed, Starting on Kendra 11/19/20 at 1233, Intra-Proc edure [facility] Medication administered onsite 1 ML heparin sodium, porcine 1000 UNT/ML Injection hep mikael (porcine) injection heparin (porcine) injection 11/19/2020 12:01:54 PM EDT active As needed, Starting on Kendra 11/19/20 at 1201, Intra-Procedure [facility] Medication administered onsite lidocaine (PF) (XYLOCAINE-MPF) 1 % injection [id number] 03/2021 11:55:13 AM EDT active As needed, Start ing on Kendra 11/19/20 at 1155, Intra-Procedure [facility] Medication administered onsite 24 HR metoprolol succinate 100 MG Extended Release Ora l Tablet Metoprolol Succinate ER 08/28/2020 12:00:00 AM EDT ORAL completed [facility] ([facility]) Omeprazole 20 MG Delayed Release Oral Capsule Omeprazole 08/03/2020 12:00:00 AM EST ORAL active [facility] ([facility]) Metoprolol Tartrate 50 MG Oral Tablet Metoprolol Tartrate 12:00:00 AM EST ORAL completed [facility] ([facility]) rivaroxaban 20 MG Oral Tablet [Xarelto] Xarelto 06/14/2020 12:00:0 0 AM EST ORAL active [facility] ([facility]) rivaroxaban 20 MG Oral Tablet rivaroxaban (XARELTO) 20 MG TABS rivaroxaban (XARELTO) 20 MG TABS 03/24/2020 12:00:00 AM EDT 20 mg Oral active Take 1 tablet (20 mg total) by mouth daily To start after procedure --discharge nurse to inform when to start. [facility] Insurance Providers Payer name Policy type / Coverage type Policy ID Covered constitution party ID Covered constitution party's relationship to lópez Policy López Plan Information [id number] [phone] [id number] Ashley [id number] Ashley [id number] Ashley [id number] INSURANCE COVID-19 COVID Ashley C OVID INSURANCE COVID-19 [id number] [id number] [facility] ([facility]) [id number] Self [id number] [facility] HUMANA - O/P [id number] 18 [id number] [facility]YS[facility]IAN [id number] 18 [id number] [facility] ACTIVE DUTY [id number] SP [id number] [facility] ([facility]) [id number] Self [id number] [facility] ACTIVE DUTY [id number] SP [id number] Problems, Conditions, and Diagnoses Code Display Name Description Problem Type Effective Dates Data Source(s) Z7901 FPC (current) use of anticoagulant s FPC (current) use of anticoagulants Diagnosis 02/23/2021 08:45:00 AM EDT [facility] [id number] Nicotine dependence, cigarettes, uncompl icated Nicotine dependence, cigarettes, uncomplicated Diagnosis 02/23/2021 08:45:00 AM EDT [facility] R9431 Abnormal electrocardiogram [ECG] [EKG] A bnormal electrocardiogram [ECG] [EKG] Diagnosis 02/23/2021 08:45:00 AM T [facility] R002 Palpitations Palpitations Diagnosis 02/23/2021 08:45:00 A M EDT [facility] M5442 Lumbago with sciatica, left side Lumbago with sc iatica, left side Diagnosis [facility] [facility] Low back pain Low back pain Diagnosis 02/23/2021 08:45:00 AM [facility] M71753 Unspecified place in unspeci fied non-institutional (private) residence as the place of occurrence of the external cause Unspecified place in unspecified non-institutional (private) residence as the place of occurrence of the external cause Diagnosis 01/17/2021 02:19:00 PM EDT [facility] [id number] Fall (on) (from) unspecified stairs and steps, initial encounter Fall (on) (from) unspecified stairs and steps, initial encounter Diagnosis 01/17/2021 02:19:00 PM EDT [facility] M5416 Radiculopathy, lumbar region Radiculopathy, lumbar reg ion Diagnosis 01/17/2021 02:19:00 PM EDT [facility] [id number] Personal history of nicotine dependence Personal history of nicotine dependence Diagnosis 01/12/2021 11:26:00 AM EDT [facility] G8929 Other chronic pain Other chronic pain Diagnosis 08/2020 11:26:00 AM EDT [facility] I48.91 Unspecified atrial fibrillation Unspecified atri al fibrillation Diagnosis 12/23/2020 03:35:03 PM EDT [facility] I48.0 Paroxysmal atrial fibrillation Paroxysmal atrial fibri llation Diagnosis 12/10/2020 11:07:56 AM EDT [facility] U07.1 COVID-19 COVID-19 Diagnosis 11/16/2020 12:00:00 AM ED T [facility] [id number] Lumbosacral radiculopathy Lumbosacral radiculopathy Pr oblem 02/01/2021 12:00:00 AM EDT [facility] ([facility]) [id number] Chronic low back pain Chronic low back pain Problem 02/01/2021 12:00:00 AM EDT [facility] ([facility]) I48.91 Atrial fibrillation Atrial fibrillation [id number] 09/29/2020 12:00:00 AM EDT [facility] R06.02 Dyspnea Dyspnea Problem 08/03/2020 12:00:00 AM ES Vishnu MANCUSO ([facility]) R55 Syncope and collapse Syncope and collapse Problem 06/15/2020 12:00:00 AM EST [facility] ([facility]) R07.2 Precordial pain Precordial pain Problem 06/15/2020 12:0 0:00 AM EST [facility] ([facility]) Surgeries/Procedures Procedure Description Date Indications Data Source(s) Implantable Loop Recorder System, Review And Report 04/15/2021 12:00:00 AM EDT [facility] ([facility]) ECG ROUTINE ECG W/LEAST 12 LDS W/I&R 03/25/2021 12:00: 00 AM EDT [facility] ([facility]) OFFICE OUTPATIENT VISIT 25 MINUTES 03/25/2021 12:00:00 AM EDT [facility] ([facility]) Implantable Loop Recorder System, Review And Report 03/12/2021 12:00:00 AM EDT [facility] ([facility]) Implantable Loop Recorder System, Review And Report 02/08/2021 12:00:00 AM EDT [facility] ([facility]) Needle electromyography, each extremity, with related paraspinal areas, when performed, done with nerve conduction, amplitude and latency/velocity study; complete, five or more muscles studied, innervated by three or more nerves or four or more spinal levels (list separately in addition to the code for primary procedure). 02/03/2021 12:00:00 AM EDT [facility] T ([facility] ) Needle electromyography, each extremity, with related paraspinal areas, when performed, done with nerve conduction, amplitude and latency/velocity study; complete, five or more muscles studied, innervated by three or more nerves or four or more spinal levels (list separately in addition to the code for primary procedure). 02/03/2021 12:00:00 AM EDT [facility] ([facility], ) 40003 Nerve conduction studies 13 or more studies NEW 201202/03/2021 12:00:00 AM EDT [facility] ([facility] ) X-Ray Spine Lumbosacral Bending Only 2 Or 3 Views 01/18/2021 12:00:00 AM EDT [facility] ([facility] ) OFFICE OUTPATIENT NEW 45 MINUTES 01/18/2021 12:00:00 A M EDT [facility] ([facility]) Implantable Loop Recorder System, Review And Report 01/06/2021 12:00:00 AM EDT [facility] ([facility] Implantable Loop Recorder System, Review And Report 12/03/2020 12:00:00 AM EDT [facility] ([facility]) EP STUDY <td>EP STUDY</td><td>Routine </td><td>11/19/2020 12:32 PM EDT</td><td> Atrial fibrillation, unspecified type</td><td></td> 11/19/2020 12:32:27 PM EDT Atrial fibrillation, unspecified type [facility] Atrial fibrillation, unspecified type ECG ROUTINE ECG W/LEAST 12 LDS TRCG ONLY W/O I&R <td>E CG 12- LEAD</td><td>Routine</td><td>11/16/2020 9:11 AM EDT</td><td> Atrial fibrillation, unspecified type</td><td></td> 11/16/2020 09:11:02 AM EDT Atrial fibrillation, unspecified type [facility] Atrial fibrillation, unspecified type BLOOD COUNT COMPLETE AUTOMATED <td>CBC</td><td>Routine </td><td>11/16/2020 9:10 AM EDT</td><td> Atrial fibrillation, unspecified type</td><td> </td> 11/16/2020 09:10:00 AM EDT Atrial fibrillation, unspecified type [facility] Atrial fibrillation, unspecified type BLOOD TYPING ABO <td>TYPE AND SCREEN</td><td> Routine</td><td>11/16/2020 9:10 AM EDT</td><td> Atrial fibrillation, unspecified type</td><td> </td> 11/16/2020 09:10:00 AM EDT Atrial fibrillation, unspecified type [facility] Atrial fibrillation, unspecified type BASIC METABOLIC PANEL CALCIUM TOTAL <td>BASIC METABOLI C PANEL</td><td>Routine</td><td>11/16/2020 9:10 AM EDT</td><td> Atrial fibrillation, unspecified type</td><td> </td> 11/16/2020 09:10:00 AM EDT Atrial fibrillation, unspecified type [facility] Atrial fibrillation, unspecified type Implantable Loop Recorder System, Review And Report 10/27/2020 12:00:00 AM EDT [facility] ([facility]) Implantable Loop Recorder System, Review And Report 09/24/2020 12:00:00 AM EDT [facility] ([facility]) OFFICE OUTPATIENT VISIT 15 MINUTES 08/11/2020 12:00:00 AM EST [facility] ([facility]) OFFICE OUTPATIENT VISIT 15 MINUTES 08/03/2020 12:00:00 AM EST [facility] ([facility]) XTRNL ECG < 48 HR RECORDING 07/20/2020 12:00:00 AM EST [facility] ([facility]) XTRNL ECG CONTINUOUS RHYTHM PHYS REVIEW&INTERPJ 2020 12:00:00 AM EST [facility] ([facility]) ECHO TTHRC R-T 2D W/WOM-MODE COMPL SPEC&COLR DOP 07/16 12:00:00 AM EST [facility] ([facility]) CV STRS TST XERS&/OR RX CONT ECG PHYS SI&R 07/09/2020 12:00:00 AM EST [facility] ([facility]) ECG ROUTINE ECG W/LEAST 12 LDS W/I&R 06/15/2020 12:00: 00 AM EST [facility] ([facility]) OFFICE OUTPATIENT VISIT 25 MINUTES 06/15/2020 12:00:00 AM EST [facility] ([facility]) ECG ROUTINE ECG W/LEAST 12 LDS W/I&R 03/16/2020 12:00: 00 AM EDT [facility] ([facility]) Results ID Date Data Source [id number] 04/25/2021 09:07:00 AM EST [facility] ([facility]) Name Value Range Interpretation Code Description Data Sera rce(s) Supporting Document(s) White Blood Count 7.2 5.0-10.0 [facility] ([facility]) Red Blood Count 4.91 4.00-5.40 [facility] ([facility]) Platelets 154 172-450 [facility] Hemoglobin 14.8 [facility] ([facility]) Hematocrit 45.4 [facility] ([facility]) ID Date Data Source [id number] 04/25/2021 09:07:00 AM EST [facility] Name Value Range Interpretation Code Description Data Sera rce(s) Supporting Document(s) Calcium [Mass/volume] in Serum or Plasma 4.6 [facility] ([facility]) Sodium 139 [facility] ([facility]iology [facility]) Carbon dioxide, total [Moles/volume] in Serum or Plasma 27.0 [facility] ([facility]) Chloride [Moles/volume] in Serum or Plasma 99 [facility] ([facility]) Potassium [Moles/volume] in Serum or Plasma 3.7 [facility] ([facility]) Glucose 128 83-110 [facility] ([facility]) Blood Urea Nitrogen 11 7-18 [facility] (Ca [facility]) Creatinine 0.9 0.6-1.0 [facility] ([facility]) Glomerular filtration rate/1.73 sq M.pre dicted [Volume Rate/Area] in Serum or Plasma by Creatinine-based formula (MDRD) Laboratory test result [facility] ([facility]) ID Date Data Source [id number] 04/22/2021 02:02:00 PM EST [facility] Name Value Range Interpretation Code Description Data Sera rce(s) Supporting Document(s) SARS coronavirus 2 RNA [Presence] in Res piratory specimen by MYAH with probe detection NEGATIVE [facility] This lab was ordered by [facility] a nd reported by [facility]. ID Date Data Source [id number] 04/19/2021 02:08:00 PM EST [facility]) Name Value Range Interpretation Code Description Data Sera rce(s) Supporting Document(s) Natriuretic peptide.B prohormone N-Terminal [Mass/volu me] in Serum or Plasma 12 [facility] ([facility]) Thyroid Stimulating Hormone 0.680 ME D[facility] ([facility]) Free T4 0.74 [facility] ([facility]) C reactive protein [Mass/volume] in Serum or Plasma 0.30 [facility] ([facility]) ID Date Data Source [id number] 04/19/2021 02:08:00 PM EST [facility] ([facility]) Name Value Range Interpretation Code Description Data Sera rce(s) Supporting Document(s) Glucose 105 [facility] ([facility] Blood Urea Nitrogen 15 [facility] ([facility]) Creatinine 0.90 [facility] ([facility]) Sodium 141 [facility] Potassium 3.7 [facility] Chloride 106 [facility] Carbon Dioxide 31 [facility] ([facility]) Calcium 8.8 [facility] Glomerular filtration rate/1.73 sq M.pre dicted [Volume Rate/Area] in Serum or Plasma by Creatinine-based formula (MDRD) Laboratory test result [facility] ([facility]) ID Date Data Source [id number] 04/19/2021 02:08:00 PM EST [facility]) Name Value Range Interpretation Code Description Data Sera rce(s) Supporting Document(s) Troponin Laboratory test result [facility] ([facility]) ID Date Data Source [id number] 04/19/2021 02:08:00 PM EST [facility] ([facility]) Name Value Range Interpretation Code Description Data Sera rce(s) Supporting Document(s) Aspartate aminotransferase [Enzymatic activity/volume] in Serum or Plasma 27 [facility] ([facility]) Alanine aminotransferase [Enzymatic activity/volume] in Serum or Pl asma 67 [facility] ([facility]) Alk Phos 72 [facility] ([facility]) Albumin 3.6 [facility] ([facility]) Total Bilirubin 0.3 [facility] ([facility]) Total Protein 6.9 [facility] ([facility]iolo gy [facility]) A/G Ratio 1.1 [facility] ([facility]) ID Date Data Source [id number] 04/19/2021 02:08:00 PM EST [facility] ([facility]) Name Value Range Interpretation Code Description Data Sera rce(s) Supporting Document(s) Creatine kinase [Enzymatic activity/volume] in Serum or Plasma 555 [facility] ([facility]) CPK-MB 1.7 [facility] ([facility]) MB/CK Relative 0.31 [facility] ([facility]) ID Date Data Source [id number] 03/03/2021 12:34:28 PM EDT [facility] INFORMATIONPatient MRN Name Date of Age Gend*PT [id number] Gallito Hinojosa 1995 26 years M ---PT Location Admission Date/Time Visit ID Attending Provider --- --- --- --- EPI ID CSN Admitting Pro vider [id number] ---[facility] Cardi[facility] [address] [facility], [address] (First Floor)[place], [place] [address]Bs.: Fax: Iatient: Gallito Camargo : 1995Date: 03/03/21CARDIOLOGY TELEMEDICINE VISITPatient was identified by name and date of .Verbal consent was obtained from the patient for this telemedicine visit.Patient is aware of the risks, limitations, and benefits of a telemedicinevisit.This telemedicine assessment was conducted remotely with the assistance ofFab communication technology. Telephone Only Codes 37717: 21-30 minutesof medical discussion: Telephone Only .Subjective:Gallito [...] benefitsFollow Up 6 monthsSignature: Ward Durán MD, [facility]ITALCardiac Electrophysiology and Arrhythmia ServiceDate: March 03, 2021Time: 12:29 PMThis document or parts of this document, were dictated using Ubiquisysware. A reasonable attempt at proofreading has been made to minimize errors.Please call with any questions or corrections. Name Value Range Interpretation Code Description Data Sera rce(s) Supporting Document(s) ID Date Data Source [id number] 02/23/2021 08:07:00 PM EDT [address] [address] RESPIRATORY CARE REPORT ==== ---------NAME------- NUMBER SEX AGE ADMIT DISC. XRAY# F/C SAM Orta [id number] M 26 02/23/21 02/23/21 [id number] SB4 E/R DATE OF : 1995 M/R# [id number] #: [id number] VT-04 LOCATION: EMERGENCY DEPT EKG [id number] COMPLE TE:02/23/21 15:13 [place] [address] PHYSICIAN: ANDREE Gallagher Name Value Range Interpretation Code Description Data Sera rce(s) Supporting Document(s) ID Date Data Source [id number] 02/23/2021 08:45:00 AM EDT [facility] 1 OrderSheet [facility] Emergency Department [address] [place] [address] Phone #: ext- [phone] 02/23/2021 08:44 Patient: GALLITO HERNANDEZ Sex: M : 1995 Age: 26yWEIGHT:73.4 kg (S) HEIGHT:67 inches (S) BMI:25.4ALLERGIES: Big Laurel (Diagnostic), Avocado (Diagnostic)CHIEF COMPLAINT: back pain, chronic back painDIAGNOSIS: Lumbar radiculopathy, PalpitationsLAB ORDERSOrder Description Priority Entered Acknowledged InitialedDIAGNOSTIC STUDY ORDERSOrder Description Priority Entered Acknowledged InitialedMEDICATION/IV/DRIP/FLUID ORDERSOrder Description Priority Entered Acknowledged InitialedLidoderm Patch 09:02/23/2021 09:42 TerryTopical (Patch 5 %) Rodney Candelario ; Camilla RN1 Patch (NOW x1,On for 12 hours, offfor 12 hours.)Motrin 600 mg PO 09:02/23/2021 09:42 FloryyX1 dose: 600 mg Rodney Candelario RN(NOW x1)GENERAL ORDERSOrder Description Priority Entered Acknowledged InitialedEKG 09:28 02/23/2021 09:33 Rodney Hou RN[Electronically signed by Rodney Candelario (11:16 02/23/2021)][Electronically signed by Hema Sampson RN (12:00 02/23/2021)][Electronically locked by Hema Sampson RN (12:00 02/23/2021)] Name Value Range Interpretation Code Description Data Sera rce(s) Supporting Document(s) ID Date Data Source [id number] 02/23/2021 08:45:00 AM EDT [facility] 1 Medication Reconciliation Report [facility] Emergency Department [address] [place] [address] Phone #: ext- [phone] 02/23/2021 08:44 Patient: GALLITO HERNANDEZ Sex: M : 1995 Age: 26yWeight: 73.4 kgHeight/Length: 67 in.BMI: 25.4ALLERGIES: Big Laurel (Diagnostic), Avocado (Diagnostic)The patient's Home Medications are listed below:CONTINUE TAKING THE FOLLOWING MEDICATIONS: Cymbalta Oral (20 mg), daily Gabapentin Oral 300 mg, daily Metoprolol Succinate ER Oral (100 mg) 20 mg, daily Xarelto Oral (20 mg), dailyThe source(s) of the original Home Medication information:Not obtained.The following Medications were given to the patient in the Emergency Department:Lidoderm Patch Transdermal 1 patch, administered: :42 02/23/2021Motrin [PO] PO 600 mg, administered: :42 02/23/2021The following Medications were prescribed to the patient:None. Name Value Range Interpretation Code Description Data Sera rce(s) Supporting Document(s) ID Date Data Source [id number] 02/23/2021 08:45:00 AM EDT [facility] 1 Medication Administration Record [facility] Emergency Department [address] [place] [address] Phone #: ext- [phone] 02/23/2021 08:44 Patient: GALLITO HERNANDEZ Sex: M : 1995 Age: 26yWeight: 73.4 kgHeight/Length: 67 inBMI: 25.4ALLERGIES: Big Laurel (Diagnostic), Avocado (Diagnostic) Date/Time Medication Administered Medication OrderedGiven LIDODERM PATCH (LIDOCAINE) Lidoderm Patch Topical (Patch 509:42 02/23/2021 Dose: 1 patch Ointment Transdermal %) 1 Patch (NOW x1, On for 12Terry LILI Sampson hours, off for 12 hours.)Given MOTRIN [PO] (IBUPROFEN) Motrin 600 mg PO X1 dose: 50783:42 02/23/2021 Dose: 600 mg Tablets PO mg (NOW x1)Hema Sampson RN Name Value Range Interpretation Code Description Data Sera rce(s) Supporting Document(s) ID Date Data Source [id number] 02/23/2021 08:45:00 AM EDT [facility] 1 General Instructions [facility] Emergency Department [address] [place] [address] Phone #: ext- [phone] 02/23/2021 08:44 Patient: [...] verbalized by patient.Follow- up with: [facility], , , [address], , [place], [place], [facility] Follow up in three days if not well. Call for an appointment. Reason for referral: evaluation. ADDITIONAL INFORMATIONSciatica 2 General Instructions [facility] Emergency Department [address] [place] [address] Phone #: ext- [phone] 02/23/2021 08:44 Patient: [...] for yourself at home: 3 General Instructions [facility] Emergency Department [address] [place] [address] Phone #: ext- [phone] 02/23/2021 08:44 Patient: [...] or swelling over your back or spine [phone] [employer] [place] [address]. All rights reserved. This information is not intended as asubstitute for professional medical care. Always follow your healthcare professional's instructions. 4 General Instructions [facility] Emergency Department [address] [place] [address] Phone #: ext- [phone] 02/23/2021 08:44 Patient: [...] muscle (cardiomyopathy) Coronary artery disease High blood szinqtgiPaj-xomcf-acnqzyt causes: Certain medicines such as asthma inhalers and decongestants Some herbal supplements, energy drinks and pills, and weight loss pills 5 General Instructions [facility] Emergency Department [address] [place] [address] Phone #: ext- [phone] 02/23/2021 08:44 Patient: [...] Tell your doctor about any prescription or hwfu-omt-uhfwpvs or herbal medicines you take.Follow-up care Follow [...] to seek medical advice 6 General Instructions [facility] Emergency Department [address] [place] [address] Phone #: ext- [phone] 02/23/2021 08:44 Patient: GALLITO HERNANDEZ Sex: M : 1995 Age: 26yCall your healthcare provider right away if you have palpitations that last longer than normal, or aredifferent from your past palpitations. [phone] [employer] [place] [address]. All rights reserved. This information is not intended as asubstitute for professional medical care. Always follow your healthcare professional's instructions. You have been given the following additional information: Sciatica Palpitations(Electronically signed by Rodney Candelario 02/23/2021 11:16) Name Value Range Interpretation Code Description Data Sera rce(s) Supporting Document(s) ID Date Data Source [id number] 02/23/2021 08:45:00 AM EDT [facility] 1 Clinical Report - Nurses [facility] Emergency Department [address] [place] [address] Phone #: ext- [phone] 02/23/2021 08:44 Patient: GALLITO HERNANDEZ Sex: M [...] tingling, trouble walking orfever. No extremity pain.Treatment SALES SERVICE REP:None.SEPSIS SCREEN: SIRS SCREEN NEGATIVE. SEPSIS SCREEN NEGATIVE. [...] Sampson RN Gabapentin Oral 300 mg, daily. --09:03 02/23/21 Hema Sampson RN Cymbalta Oral (Capsule Delayed Release Particles 20 mg), daily. --09:04 02/23/21 Hema Sampson RN.AllergiesAlmond (Diagnostic).Avocado (Diagnostic). --09:03 02/23/21 Hema Sampson RN.Qvclqym04:07 02/23/21.PAST MEDICAL HX: Heart disease.SOCIAL HX: Smoker- current status unknown (1/2 ppd). No alcohol use or drug use. He was offeredHIV testing but declined and hepatitis C testing but declined. He has not traveled outside the [place]Infectious disease exposure: No infectious disease exposure. 2 Clinical Report - Nurses [facility] Emergency Department [address] [place] [address] Phone #: ext- [phone] 02/23/2021 08:44 Patient: [...] significant family medical history. --09:32 02/23/21 Rodney Candelario. Interventions 09:02/23/21. Identification band on patient. To room. --09:07 02/23/21 Hema Sampson RN.PHYSICAL CAJQDTPXHX32:02/23/21. Ambulatory to room.GENERAL / NEURO / PSYCH: Alert. Oriented X 4.RESPIRATORY: Respirations not labored. Chest nontender. Breath sounds within normal limits.CVS: Cardiac rh ythm: normal sinus rhythm; (0850).GI / : Abdomen soft and nontender. Bowel sounds within normal limits.EXTREMITIES: ROM of extremities within normal limits.BACK: Limited ROM of the back. Soft tissue tenderness in the right lower and left lower lumbarparaspinous region. --09:07 02/23/21 Hema Sampson RN.NURSING PROGRESS NOTES09:02/23/21. Patient gowned. Head of bed elevated 45 degrees. Two patient identifiers checked.Call light placed in reach. Bed placed in lowest position. Brakes of bed on. Patient ready for evaluation-ED physician notified. --09:08 02/23/21 Hema Sampson RN EKG time: (08:53 02/23/2021). EKG was performed by a nurse and shown to the ED physician. NSR. --09:09 02/23/21 Hema Sampson RN 3 Clinical Report - Nurses [facility] Emergency Department [address] [place] [address] Phone #: ext- [phone] 02/23/2021 08:44 Patient: GALILTO HERNANDEZ Sex: M : 1995 Age: 26y [...] F. Pain level now 02/19. --09:45 02/23/21 [facility] Tech, [facility] Tech1 09:55 02/23/21. Departure time: 09:55 02/23/2021. Condition at departure: unchanged. No learning barriers present. Discharge instructions provided and reviewed with the patient. Reviewed medication(s) (no changes). Reviewed rest and ice instructions. Reviewed referrals. Provided to follow-up provider. Patient verbalized understanding. Written instructions provided in Bolivian. The patient was discharged by the physician. He was discharged home. He left ambulatory and via private vehicle. Patient driving. --09:55 02/23/21 Hema Sampson RN.Locked/Released at 02/23/2021 12:00 by Hema Sampson RN Name Value Range Interpretation Code Description Data Sera rce(s) Supporting Document(s) ID Date Data Source [id number] 02/23/2021 08:45:00 AM EDT [facility] 1 Clinical Report - Physicians/Mid Levels [facility] Emergency Department [address] [place] [address] Phone #: ext- [phone] 02/23/2021 08:44 Patient: [...] Xarelto Oral (Tablet 20 mg), daily. Allergies: Big Laurel (Diagnostic). 2 Clinical Report - Physicians/Mid Levels [facility] Emergency Department [address] [place] [address] Phone #: ext- [phone] 02/23/2021 08:44 Patient: GALLITO HERNANDEZ Sex: M [...] been interpreted contemporaneously by me. Interpretation time: :.PROGRESS AND PROCEDURESCourse of Care: 09:33 02/23/21. Chronic pain pain without saddle anesthesia, weakness, fever, urinaryretention. Lidoderm patch applied.No signs of atrial fibrillation. CT scan reviewed. 09:35 02/23/21. EKG shows not pericariditis. Early repolarization on EKG. Old medical records ordered. Patient has had multiple ED visits. Disposition: Discharged. Condition: stable. 3 Clinical Report - Physicians/Mid Levels [facility] Emergency Department [address] [place] [address] Phone #: ext- [phone] 02/23/2021 08:44 Patient: [...] verbalized by patient. Follow-up with: [facility], , , [address] [address] [facility], , [place], [address] Follow up in three days if not well. Call for an appointment. Reason for referral: evaluation.(Electronically signed by Rodney Candelario 02/23/2021 11:16) Name Value Range Interpretation Code Description Data Sera rce(s) Supporting Document(s) ID Date Data Source [id number] 02/12/2021 12:00:00 AM EDT [facility] Name Value Range Interpretation Code Description Data Sera rce(s) Supporting Document(s) PCR NEGATIVE [facility] This lab was ordered by [facility] are and reported by [facility]. ID Date Data Source [id number] 01/17/2021 06:32:00 PM EDT [facility] [address] [place] [address] PHONE: [phone] FAX: [phone] Name .................. : MARY Orta Acct Number.................. : [id number] ROOM. ................. : [facility] MR Number ................... : [id number] Stay type ............. : E/R Discharge Date......... ... : Admit Date ......... : 01/17/21 Admit Phys .................... : ANDREE Gallagher Date of ....... : 1995 Family Phys ................... : UNKNOWN CO Phone .................. : [phone] Age ................................ : 26 Film# .................. .:[id number] Sex ................................. : M Unsigned transcriptions are preliminary reports and do not represent a medical or legal document CT LUMBAR SP W/O CONT [id number] COMPLETE:01/17/21 16:54 [id number] Reason(s): fell down stairs, acute on chronic [...] 01/17/21 18:32, JWS [address] [place] [address] PHONE: [phone] FAX: [phone] Name .................. : MARY Orta Acct Number.................. : [id number] ROOM. ................. : VT-19 Number ................... : [id number] Stay type ............. : E/R Discharge Date......... ... : Admit Date ......... : 01/17/21 Admit Phys .................... : CANDELARIO RODNEY Gallagher Date of ....... : 1995 Family Phys ............ ....... : UNKNOWN CO Phone .................. : [phone] Age ................................ : 26 Film# .................. .:[id number] Sex ................................. : M Unsigned transcriptions are preliminary reports and do not represent a medical or legal document CT LUMBAR SP W/O CONT [id number] COMPLETE:01/17/21 16:54 [id number] Reason(s): fell down stairs, acute on chronic LBP Transcribe Initials: TAWANNA , Transcribe Date: 01/17/21 17:50, Dictation Date: Copy for: BURKE Crandall via fax Copy for: EMERGENCY DEPT via mode Copy for: 710 MED REC DISCHARGED Page 2 of 2 Name Value Range Interpretation Code Description Data Sera rce(s) Supporting Document(s) ID Date Data Source [id number] 01/17/2021 02:19:00 PM EDT [facility] 1 OrderSheet [facility] Emergency Department [address] [place] [address] Phone #: ext- [phone] 01/17/2021 13:55 Patient: GALLITO HERNANDEZ Sex: M : 1995 Age: 26yWEIGHT:73.4 kg (S) HEIGHT:67 inches (S) BMI:25.4ALLERGIES: Big Laurel (Diagnostic), Avocado (Diagnostic)CHIEF COMPLAINT: fall, -3-, down [...] rce(s) Supporting Document(s) ID Date Data Source [id number] 01/17/2021 02:19:00 PM EDT [facility] 1 Medication Reconciliation Report [facility] Emergency Department [address] [place] [address] Phone #: ext- [phone] 01/17/2021 13:55 Patient: GALLITO HERNANDEZ Sex: M : 1995 Age: 26yWeight: 73.4 kgHeight/Length: 67 in.BMI: 25.4ALLERGIES: Big Laurel (Diagnostic), Avocado (Diagnostic)The patient's Home Medications are [...] Dispense6 tablet. Refills: 0. Substitution permitted.Pharmacy - [facility] [address] ; [place] [address]. . -- MARYAN Velasco Name Value Range Interpretation Code Description Data Sera rce(s) Supporting Document(s) ID Date Data Source [id number] 01/17/2021 02:19:00 PM EDT [facility] 1 Medication Administration Record [facility] Emergency Department [address] [place] [address] Phone #: ext- [phone] 01/17/2021 13:55 Patient: GALLITO HERNANDEZ Sex: M : 1995 Age: 26yWeight: 73.4 kgHeight/Length: 67 inBMI: 25.4ALLERGIES: Big Laurel (Diagnostic), Avocado (Diagnostic) Date/Time Medication Administered Medication OrderedGiven MORPHINE [IM] Morphine IM 4 mg (NOW x1, HIGH17:04 01/17/2021 Dose: 4 mg IM ALERT MEDICATION)Hema Sampson RNGiven ZOFRAN ODT [PO] (ONDANSETRON Zofran ODT PO 4 mg (NOW x1)17:05 01/17/2021 HCL)Hema Sampson RN Dose: 4 mg Oral Disintegrating Tablets PO Name Value Range Interpretation Code Description Data Sera rce(s) Supporting Document(s) ID Date Data Source [id number] 01/17/2021 02:19:00 PM EDT [facility] 1 General Instructions [facility] Emergency Department [address] [place] [address] Phone #: ext- [phone] 01/17/2021 13:55 Patient: GALLITO HERNANDEZ Sex: M [...] Dispense6 tablet. Refills: 0. Substitution permitted.Pharmacy - [facility] [address] ; [place] [address]. .Understanding of the discharge instructions verbalize d by patient. Expected course of injury, dischargeinstructions, activity level, prescriptions x1, follow-up appointment and risks and benefits of treatmentreviewed with patient and understanding verbalized. Agrees to plan of care.Follow-up with: [facility], , , [address] [place] [address], , [place], [address] Follow up in one day even if well. Call for the next available appointment. Reason for referral: evaluationand recommend MRI LS spine and referral to ortho spine . Summary of care provided to patient via paper. ADDITIONAL INFORMATION 2 General Instructions [facility] Emergency Department [address] [place] [address] Phone #: ext- [phone] 01/17/2021 13:55 Patient: [...] howsevere your symptoms are. 3 General Instructions [facility] Emergency Department [address] [place] [address] Phone #: ext- [phone] 01/17/2021 13:55 --- [...] your back or spine 4 General Instructions [facility] Emergency Department [address] [place] [address] Phone #: ext- [phone] 01/17/2021 13:55 Patient: GALLITO HERNANDEZ Sex: M : 1995 Age: 26y [id number] [employer] [address] [place] [address]. All rights reserved. This information is not [...] provider before using these 5 General Instructions [facility] Emergency Department [address] [place] [address] Phone #: ext- [phone] 01/17/2021 13:55 Patient: GALLITO HERNANDEZ Sex: M [...] the reading, especially if it affects treatment.Call [phone] if any of these happen: 6 General Instructions [facility] Emergency Department [address] [place] [address] Phone #: ext- [phone] 01/17/2021 13:55 Patient: MARY, MARC H Sex: M : 1995 Age: 26y Trouble breathing Confused or difficulty arousing Fainting or loss of consciousness Rapid or very slow heart rate Seizure Difficulty with speech or vision, weakness of an arm or leg Difficulty walking or talking, loss of balance, numbness or weakness in one side of your body, or facial droopWhen to seek medical adviceCall yo ur healthcare provider right away if any of these happen: Repeated mechanical falls, or unexplained falls Dizziness Severe headache Blood in vomit, stools (black or red color) [phone] [employer] [address] [place] [address]. All rights reserved. This information is not [...] in poorly lit areas. 7 General Instructions [facility] Emergency Department [address] [place] [address] Phone #: ext- [phone] 01/17/2021 13:55 Patient: [...] sidewalks. If your balance is poor, con portable router operator using a cane or walker. If your [...] could make you more likely to fall. [phone] [employer] [address] [place] [address]. All rights reserved. This information is not intended as asubstitute for professional medical care. Always follow your healthcare professional's instructions. You have been given the following additional information: Sciatica Mechanical Fall Fall Prevention 8 General Instructions [facility] Emergency Department [address] [place] [address] Phone #: ext- [phone] 01/17/2021 13:55 Patient: GALLITO HERNANDEZ Sex: M : 1995 Age: 26yNo strenuous activity until better.(Electronically signed by MARYAN Velasco 01/17/2021 18:46) Name Value Range Interpretation Code Description Data Sera rce(s) Supporting Document(s) ID Date Data Source [id number] 01/17/2021 02:19:00 PM EDT [facility] 1 Clinical Report - Nurses [facility] Emergency Department [address] [place] [address] Phone #: ext- [phone] 01/17/2021 13:55 Patient: [...] bladder.). The patient has had trouble walking.Treatment SALES SERVICE REP:Seen within the last 30 days in the [...] 97%. Temp: 98.6 F. Pain level now 10/10.--14:15 01/17/21 Belgica Joaquin R.N.Weight: 73.4 kg stated. Height/Length: 67 inches Per Patient. BMI: 25.4. --14:12 01/17/21 Belgica Joaquin R.N.MedicationsXarelto Oral (Tablet 20 mg), daily. --14:14 01/17/21 Belgica Joaquin R.N. Metoprolol Succinate ER Oral (Tablet Extended Release 24 Hour 100 mg), daily. --14:14 01/17/21Belgica Joaquin R.N.AllergiesAvocado (Diagnostic). --14:13 01/17/21 Belgica Joaquin R.N.Big Laurel (Diagnostic). --14:14 01/17/21 Belgica Joaquin R.N.PROBLEMS:Depression. --14:15 01/17/21 Belgica Joaquin R.N.Back Pain.Atrial Fibrillation. --16:48 01/17/21 MARYAN Velasco 2 Clinical Report - Nurses [facility] Emergency Department [address] [place] [address] Phone #: ext- [phone] 01/17/2021 13:55 Patient: [...] in pain. 3 Clinical Report - Nurses [facility] Emergency Department [address] [place] [address] Phone #: ext- [phone] 01/17/2021 13:55 Patient: [...] RR: 16. O2 saturation: 99%. --17:11 01/17/[address] [facility] Patient transported to [place] by wheelchair with mask and soil technologist. (1720). --17:31 01/17/21 Hema Sampson RN Patient returned from CT by wheelchair with mask and soil technologist. (1731). --17:33 01/17/21 Hema Sampson RN 18:16 01/17/21. BP: 114/83. HR: 84. RR: 16. O2 saturation: 100%. --18:16 01/17/[address] [facility] Tech[facility].DISPOSITION / DISCHARGE 17:49 01/17/21. Departure time: 17:49 01/17/2021. Transferred. Provided to EMS ([facility] Transported via ambulance by cold molding press operator. Report was given to a nurse via [...] 100%. Temp: 98.5 F. Pain level now /10. 4 Clinical Report - Nurses [facility] Emergency Department [address] [place] [address] Phone #: ext- [phone] 01/17/2021 13:55 Patient: GALLITO HERNANDEZ Sex: M : 1995 Age: 26y --18:18 01/17/[address] [facility] Departure time: 18:24 01/17/2021. --18:24 01/17/21 Balbina Ramirez RN Condition at departure: stable. No learning barriers present. Discharge instructions provided and reviewed with the patient. Reviewed medication(s) side effects, precautions, dosing and course information. Prescription(s) sent electronically to pharmacy. Reviewed referral to a primary care physician. Patient verbalized understanding. Written instructions provided in Bolivian. The patient was discharged by the physician preschool assistant teacher. He was discharged home and accompanied by spouse. He left ambulatory and via private vehicle. Spouse driving. --18:26 01/17/21 Balbina Ramirez RN.Locked/Released at 01/17/2021 18:26 by Balbina Ramirez RN Name Value Range Interpretation Code Description Data Sera rce(s) Supporting Document(s) ID Date Data Source [id number] 01/17/2021 02:19:00 PM EDT [facility] 1 Clinical Report - Physicians/Mid Levels [facility] Emergency Department [address] [place] [address] Phone #: ext- [phone] 01/17/2021 13:55 Patient: GALLITO HERNANDEZ Sex: M [...] Loop recorder. Medications: 2 Clinical Report - Physicians/[facility] Emergency Department [address] [place] [address] Phone #: ext- [phone] 01/17/2021 13:55 Patient: GALLITO HERNANDEZ Sex: M : 1995 Age: 26y Metoprolol Succinate ER Oral (Tablet Extended Release 24 Hour 100 mg), daily. Xarelto Oral (Tablet 20 mg), daily. Allergies: Big Laurel (Diagnostic). Avocado (Diagnostic).SOCIAL HISTORYSmoker- current status unknown. [...] is 3 Clinical Report - Physicians/Mid Levels [facility] Emergency Department [address] [place] [address] Phone #: [phone] usk- [phone] 01/17/2021 13:55 Patient: GALLITO HERNANDEZ Sex: M [...] tablet. Refills: 0. Substitution permitted. Pharmacy - [facility] [address] ; [place] [address]. . Understanding of the discharge instructions verbalized by patient. Expected course of injury, discharge instructions, activity level, prescriptions x1, follow-up appointment and risks and benefits of treatment reviewed with patient and understanding verbalized. Agrees to plan of care. Follow-up with: [facility], , , [address] [place] [address], , [place], [address] Follow up in one day even if well. Call for the next available appointment. Reason for referral: evaluation and recommend MRI LS spine and referral to ortho spine . Summary of care provided to patient via paper. 4 Clinical Report - Physicians/Mid Levels [facility] Emergency Department [address] [place] [address] Phone #: ext- [phone] 01/17/2021 13:55 Patient: GALLITO HERNANDEZ Sex: M : 1995 Age: 26y(Electronically signed by MARYAN Velasco 01/17/2021 18:46) Name Value Range Interpretation Code Description Data Sera rce(s) Supporting Document(s) ID Date Data Source [id number] 01/12/2021 11:26:00 AM EDT [facility] 1 OrderSheet [facility] Emergency Department [address] [place] [address] Phone #: pkn- [phone] 01/12/2021 11:19 Patient: GALLITO MONTGOMERY Sex: M : 1995 Age: 26yWEIGHT:73.4 kg HEIGHT:67 inches BMI:25.4ALLERGIES: Muriel Lewis COMPLAINT: back pain, chronic back painDIAGNOSIS: Lumbar radiculopathyLAB ORDERSOrder Description Priority Entered Acknowledged InitialedDIAGNOSTIC STUDY ORDERSOrder Description Priority Entered Acknowledged InitialedSpine Lumbar STAT 11:40 01/12/2021 12:07 Efren Gonsales Victoria R.NAshley(Oxygen?(No)) ; Reason for Study: Lower Back PainMEDICATION/IV/DRIP/FLUID ORDERSOrder Description Priority Entered Acknowledged InitialedSOLU- Medrol IM 11:40 01/12/2021 Cancelled: Physician Order 12:07 Dru,125 mg Giorgi Menjivar R.NAshley ;Flexeril PO 10 mg 11:40 01/12/2021 12:07 Shanda Gonsales(NOW) Giorgi Menjivar R.NAshley ;Percocet PO 1 tab 11:48 01/12/2021 12:07 Shanda Gonsales(HIGH ALERT Giorgi Menjivar RAshleyNAshleyMEDICATION) ;Dexamethasone IM 12:08 01/12/2021 12:08 Shanda Gonsales10 mg (NOW) Shanda GonsalesNAshley; R.N. Verbal order per; Giorgi MenjivarGENERAL ORDERSOrder Description Priority Entered Acknowledged Initialed[Electronically signed by Belgica Joaquin R.N. (12:47 01/12/2021)][Electronically signed by Giorgi Menjivar (03:27 09/2020)][Electronically locked by Belgica Joaquin R.N. (12:47 01/12/2021)] Name Value Range Interpretation Code Description Data Sera rce(s) Supporting Document(s) ID Date Data Source [id number] 01/12/2021 11:26:00 AM EDT [facility] 1 Medication Reconciliation Report [facility] Emergency Department [address] [place] [address] Phone #: ext- [phone] 01/12/2021 11:19 Patient: [...] Emergency Department:Flexeril [PO] PO 10 mg, administered: 12:07 1Percocet [PO] PO 1 tab, administered: 12:07 1Dexamethasone [IM] IM 10 mg, administered: 12:08 01/12/2021The following Medications were prescribed to the patient:cyclobenzaprine 10 mg tablet Take 1 tablet three times a day for 10 days -- Dispense 30 tablet. Refills:0. Substitution permitted.Pharmacy - [facility] [address] ; [place] [address]. .prednisone 10 mg tablet Take 4 tablet once a day for 10 days -- x 2 days then 3 tabs daily x 2 daysthen 2 tabs daily x 2 days then 1 tab daily x 2 days. Dispense 30 tablet. Refills: 0. Substitution permitted.Pharmacy - [facility] - [address] ; [place] [address]. . 2 Medication Reconciliation Report [facility] Emergency Department [address] [place] [address] Phone #: ext- [phone] 01/12/2021 11:19 Patient: GALLITO MONTGOMERY Sex: M : 1995 Age: 26yPercocet 5 mg-325 mg tablet Take 1 tablet four times a day for 3 days -- as needed for pain. Znozkoxj06 tablet. Refills: 0. Substitution permitted.Pharmacy - [facility] [address] ; [place] [address]. . -- Giorgi Menjivar Name Value Range Interpretation Code Description Data Sera rce(s) Supporting Document(s) ID Date Data Source [id number] 01/12/2021 11:26:00 AM EDT [facility] 1 Medication Administration Record [facility] Emergency Department [address] [place] [address] Phone #: ext- [phone] 01/12/2021 11:19 Patient: GALLITO MONTGOMERY Sex: M : 1995 Age: 26yWeight: 73.4 kgHeight/Length: 67 inBMI: 25.4ALLERGIES: Avacado, Big Laurel Date/Time Medication Administered Medication OrderedGiven FLEXERIL [PO] [...] rce(s) Supporting Document(s) ID Date Data Source [id number] 01/12/2021 11:26:00 AM EDT [facility] 1 General Instructions [facility] Emergency Department [address] [place] [address] Phone #: ext- [phone] 01/12/2021 11:19 Patient: GALLITO MONTGOMERY Sex: M [...] Dispense 30 tablet. Refills:0. Substitution permitted.Pharmacy - [facility] - [address] ; [place] [address]. .prednisone 10 mg tablet Take 4 tablet once a day for 10 days -- x 2 days then 3 tabs daily x 2 daysthen 2 tabs daily x 2 days then 1 tab daily x 2 days. Dispense 30 tablet. Refills: 0. Substitution permitted.Pharmacy - [facility] - [address] ; [place] [address]. .Percocet 5 mg-325 mg tablet Take 1 tablet four times a day for 3 days -- as needed for pain. Hxszevmb10 tablet. Refills: 0. Substitution permitted.Pharmacy - [facility] [address] ; [place] [address]. .Follow-up: Follow up with your healthcare provider in three days if not better. Reason for referral: evaluation.Summary of care provided to patient via paper. Screening today revealed the patient's blood pressure indra in the hypertensive stage 2 range. The patient should follow up with a primary care provider for bloodpressure management. ADDITIONAL INFORMATION 2 General Instructions [facility] Emergency Department [address] [place] [address] Phone #: ext- [phone] 01/12/2021 11:19 Patient: GALLITO MONTGOMERY RN: [id number] Sex: Violeta : 1995 Age: 26ySciaticaSciatica is a condition [...] howsevere your symptoms are. 3 General Instructions [facility] Emergency Department [address] [place] [address] Phone #: ext- [phone] 01/12/2021 11:19 Patient: [...] your back or spine 4 General Instructions [facility] Emergency Department [address] [place] [address] Phone #: ext- [phone] 01/12/2021 11:19 Patient: GALLITO MONTGOMERY Sex: M : 1995 Age: 26y [phone] [employer] [address] [place] [address], [place] [address]. All rights reserved. This information is not intended as asubstitute for professional medical care. Always follow your healthcare professional's instructions. You have been given the following additional information: Sciatica Do not work for one day.(Electronically signed by Giorgi Menjivar 01/13/2021 03:27) Name Value Range Interpretation Code Description Data Sera rce(s) Supporting Document(s) ID Date Data Source [id number] 01/12/2021 11:26:00 AM EDT [facility] 1 Clinical Report - Nurses [facility] Emergency Department [address] [place] [address] Phone #: ext- [phone] 01/12/2021 11:19 Patient: GALLITO MONTGOMERY Sex: M : 1995 Age: 26yTRIAGEArrived by private vehicle. Historian: patient. ( pt reports back pain (chronic) since october 02 2015 pt fell offa moving humve. pt was given 3 days off at that time. pt reports he recently started treatment for this in the month. pt reports he has had loss of bowel about a month ago. pt reports he was seen on post and inperrin. pt had an mri done and it showed bulging discs. pt reports he has a hx of a-fib so he was notgiven medications for pain.).Triage time: 11:25 01/12/2021. Acuity: LEVEL 3.This started yesterday. Onset. (sitting at rest).Treatment SALES SERVICE REP:(pt states "i hate pills, so i didn't [...] Gil R.N. 2 Clinical Report - Nurses [facility] Emergency Department [address] [place] [address] Phone #: ext- [phone] 01/12/2021 11:19 Patient: [...] sinceincident 4 weeks ago when seen in [facility] ED and MRI done per patient. pt reports pain to be "more thanexcrutiating").SKIN: Skin is warm and dry. --11:32 01/12/21 Hui Gil R.N.NURSING PROGRESS NOTESThe plan of care for this patient has been created. Patient gowned. Reassurance given. Call lightplaced in reach. Bed placed in lowest position. Brakes of bed on. Patient ready for evaluation. --11: Hui Gil R.N. 12:07 01/12/2021 Flexeril (Cyclobenzaprine HCl) PO Tablets 10 mg given. Allergies verified and confirmed 5 rights. Information reviewed with patient including reason for taking this medication, signs of allergic reaction, precautions and sedative warning. Verbalizes understanding. --12:07 01/12/21 Shanda Gonsales R.N. 12:07 01/12/2021 Percocet (oxyCODONE-Acetaminophen) PO Tablets 1 tab given. Allergies verified and 3 Clinical Report - Nurses [facility] Emergency Department [address] [place] [address] Phone #: ext- [phone] 01/12/2021 11:19 Patient: [...] Patient transported to radiology by wheelchair with soil technologist. --12:09 01/12/21 Shanda Gonsales R.N.DISPOSITION / DISCHARGE Condition at departure: improved and stable. No learning barriers present. Discharge instructions provided and reviewed with the patient. Reviewed medication(s) side effects, precautions, dosing and course information. Prescription(s) sent electronically to pharmacy. Work note given. Patient verbalized understanding. Written instructions provided in Bolivian. The patient was discharged by the physician. He was discharged home and accompanied by spouse. He left ambulatory and via private vehicle. Spouse driving. --12:46 01/12/21 Belgica Joaquin R.N. 12:44 01/12/21. BP: 134/90. HR: 90. RR: 18. O2 saturation: 99%. Temp: 97.9 F. Pain level now 7/10. --12:46 01/12/21 Joaquin, Belgica, R.N.Locked/Released at 01/12/2021 12:47 by Belgica Joaquin R.N. Name Value Range Interpretation Code Description Data Sera rce(s) Supporting Document(s) ID Date Data Source [id number] 01/12/2021 11:26:00 AM EDT [facility] 1 Clinical Report - Physicians/Mid Levels [facility] Emergency Department [address] [place] [address] Phone #: ext- [phone] 01/12/2021 11:19 Patient: GALLITO MONTGOMERY Sex: M [...] bowel 1 moth ago was seen at [facility] and had an MRI which showed [...] Medications: Xarelto Oral. Alieve about 199901/11/2021. Allergies: Big Laurel. Avacado. 2 Clinical Report - Physicians/Mid Levels [facility] Emergency Department [address] [place] [address] Phone #: ext- [phone] 01/12/2021 11:19 Patient: GALLITO MONTGOMERY Sex: M : 1995 Age: 26ySOCIAL HISTORYFormer [...] has 3 Clinical Report - Physicians/Mid Levels [facility] Emergency Department [address] [place] [address] Phone #: ext- [phone] 01/12/2021 11:19 Patient: GALLITO MONTGOMERY Sex: M [...] tablet. Refills: 0. Substitution permitted. Pharmacy - [facility] - [address] ; [place] [address]. . prednisone 10 mg tablet Take 4 tablet once a day for 10 days -- x 2 days then 3 tabs daily x 2 days then 2 tabs daily x 2 days then 1 tab daily x 2 days. Dispense 30 tablet. Refills: 0. Substitution permitted. [facility] [address] ; [place] [address]. . Percocet 5 mg-325 mg tablet Take 1 tablet four times a day for 3 days -- as needed for pain. Dispense 12 tablet. Refills: 0. Substitution permitted. Pharmacy - [facility] [address] ; [place] [address]. Phone: . 4 Clinical Report - Physicians/Mid Levels [facility] Emergency Department [address] [place] [address] Phone #: ext- [phone] 01/12/2021 11:19 Patient: GALLITO MONTGOMERY Sex: M [...] rce(s) Supporting Document(s) ID Date Data Source [id number] 01/12/2021 02:58:00 PM EDT [facility] [address] [place] [address] PHONE: [phone] FAX: [phone] Name .................. : ULISES ZENDEJAS Acct Number.................. : [id number] ROOM. ................. : [place] MR Number ................... : [id number] Stay type ............. : E/R Discharge Date......... ... : Admit Date ......... : 08/30 Admit Phys .................... : CRISTELA Date of ....... : 1995 Family Phys ................... : UNKNOWN CO Phone .................. : [phone] Age ................................ : 26 Film# .................. .:[id number] Sex ................................. : M Unsigned transcriptions are preliminary reports and do not represent a medical or legal document SPINE LS COMPLETE [id number] COMPLETE:01/12/21 11:40 [id number] Reason(s): Lower Back Pain LUMBOSACRAL SPINE 5 [...] rce(s) Supporting Document(s) ID Date Data Source [id number] 12/10/2020 12:16:59 PM EDT [facility]FORMATIONPatient MR[facility] Name Date of Age Gend*PT [id number] Gallito Hinojosa 1995 25 years M ---PT Location Admission Date/Time Visit ID Attending Provider --- --- --- --- EPI ID CSN Admitting Pro vider [id number] ---Cardiology Office VisitSubjectiveChief Complaint: Status post atrial [...] of having procedure completed he went to [facility] twice due tonausea, vomiting, and diarrhea. He [...] Social Gatherings with Friends and Family: Attends Mormonism Services: Active Member of Clubs or Organizations: Attends Club or Organization Meetings: Marital Status:Intimate Partner Violence: Fear of Current or Ex-Partner: Emotionally Abused: Physically Abused: Sexually Abused:Medications and AllergiesAllergiesAllergen Reactions Big Laurel Meal Anaphylaxis Avocado AnaphylaxisCurrent Outpatient MedicationsMedication Sig [...] NEGATIVE Final Testing site 11/16/2020 PERFORMED AT [address] [place] [id number] Blood bank comment 11/16/2020 SEE NOTES Final [...] sinus rhythm. [facility] Patient will call the office if [...] rce(s) Supporting Document(s) ID Date Data Source [id number] 11/30/2020 11:12:00 AM EDT [facility] Name Value Range Interpretation Code Description Data Sera rce(s) Supporting Document(s) Albumin [Mass/volume] in Serum or Plasma 4.0 [facility] ([facility]) Alanine aminotransferase [Enzymatic activity/volume] in Serum or Pl asma 32 [facility] ([facility]) Calcium [Mass/volume] in Serum or Plasma 9.5 [facility] [facility] Carbon dioxide, total [Moles/volume] in Serum or Plasma 30 [facility] ([facility]) Chloride [Moles/volume] in Serum or Plasma 104 [facility] ([facility]) Alkaline phosphatase [Enzymatic activity/volume] in Serum or Plasma 7 4 [facility] ([facility]) Potassium [Moles/volume] in Serum or Plasma 4.1 [facility] ([facility]) Protein [Mass/volume] in Serum or Plasma 7.6 [facility] ([facility]) Sodium 137 [facility] Aspartate aminotransferase [Enzymatic activity/volume] in Serum or Plasma 19 [facility] ([facility]) Urea nitrogen [Mass/volume] in Serum or Plasma 11 [facility] ([facility]) Glucose 77 70-100 [facility] Creatinine For GFR 1.06 [facility] ([facility]) ID Date Data Source [id number] 11/30/2020 11:12:00 AM EDT [facility] ([facility]) Name Value Range Interpretation Code Description Data Sera rce(s) Supporting Document(s) White Blood Count 5.3 4.3-10.9 [facility] ([facility]) Red Blood Count 5.28 4.70-6.20 [facility] ([facility]) Platelets 153 130-400 [facility] Hemoglobin 16.0 13.0-17.0 [facility] ([facility]) Hematocrit 47.7 39.0-50.0 [facility] ([facility]) ID Date Data Source [id number] 11/21/2020 11:09:00 AM EDT [facility] ([facility]) Name Value Range Interpretation Code Description Data Sera rce(s) Supporting Document(s) Troponin 1.48 [facility] Magnesium Level 2.1 [facility] ([facility]) ID Date Data Source [id number] 11/21/2020 11:09:00 AM EDT [facility] ([facility]) Name Value Range Interpretation Code Description Data Sera rce(s) Supporting Document(s) Calcium [Mass/volume] in Serum or Plasma 9.1 [facility] ([facility]) Sodium 140 [facility] ([facility]) Carbon dioxide, total [Moles/volume] in Serum or Plasma 26 [facility] ([facility]) Chloride [Moles/volume] in Serum or Plasma 107 [facility] ([facility]) Potassium [Moles/volume] in Serum or Plasma 4.1 [facility] ([facility]) Glucose 76 70-100 [facility] ([facility]) Blood Urea Nitrogen 12 5-21 [facility] ([facility]) Creatinine 0.93 0.6-1.5 [facility] ([facility]) Glomerular filtration rate/1.73 sq M.pre dicted [Volume Rate/Area] in Serum or Plasma by Creatinine-based formula (MDRD) Laboratory test result [facility]) ID Date Data Source [id number] 11/20/2020 07:17:20 AM EDT [facility] Name Value Range Interpretation Code Description Data Sera rce(s) Supporting Document(s) &PDF [facility] ECTYJe0zRkLLVcTu64/IBCtbVQHfn0BcCUbeNJu8VXheUXNlZ7HfzFgnFMrPAK2jAoRDOYlXUBBhRBNC yZW [file] LxlswEsGG/MHdDy3CPWDAufxiGl+HkaZQHBORXVRXLGBXMJORKNSENAJPMDJCS1c/zcUxiUNCmVuZHN0 piLlcA1UON3yh4FvKEpoZRFxIK4rnr6GC83VLjGsYP3zmd3JMsCwRS8xry1KSLqSJrXjB3Dyd7RZTTYt Fq1BDJWsFXB2zL4GxRLcVNEtJQ3lR3PQEP1LCJLuIx 1iqDQ8HYJbLrSbHKLsNYQXCKkoCZPfO1AiUNZ4MSPqNn6+TTppDM9ZG8EjJUU5TEc5FX0zaWkcOFF1XM XhBu2ODIGlBC7jpBfpIAS8FBUuSj6+PPwwTG0DpTNMY1SpoHFeFGevR4OIFA8EUPF8IT1MvMFfKT8UkK RTW6MecTNoWl7zKKFgw1CjKg0lI9YCEYXJMLJfWUtg CGawTDWwGYi7T0N8QPZsZ5IET385dTQmoRn6Qd4pK3AQFZqIGeTgZZjkRAesAEFaXKh9T1X7MCXzI1SL S6ArRqZnemGfL8H+DpQvMYZJLV5RDHAVAQv1I1V8hHEgB9V7uDjNjCF1AY6MAB8CwXAarWRgq28+PiAN TkVyD0WQR8PRAM2EKZu7R6N6cKWqP1P4xKxApSF5RI 8LGS3MlVdphVXaPz5yBGpzODP+Hp6OCw8UOqTyPS1fkh7UCsWtWOYcGzaHSgb7P5cksrr9eOUsIkH6Z9 P1QwJ1wRLvTI3SK6C4kHDbUBF4BWQvuKI+Kb0Qp7YvLXQrVYr9X0rxFBLaFCOhNjUmeR54N++7vycgaW X2C6f0TKCLpJDkbZfXcxRqQ7bVGSZ3u8M4FDp/Pg0K GVY6oKa2eWGvJMQzACx8mT3flMn5CxUkYU44RCQkMGctpZ3hPll7I6Zhi5UoTo2bFt9baZEeCg2NArMx IXG2csSkApFWWkJ4fLqzmelzKCN8M3r2zLY5Tc69a4aosaVih7LeZpJ6RCsbZUAhApUyryJrOQF0agPf qV7yyvDwEc4KOVIqEJqzfrYiBfQZNp4UHcUgKX81Lb grxS8laUJ+DQogICAgICAgICAgICAgICAgICAgICAgICAgICAgICAgICAgICAgICAgICAgICAgICAgIC AgICAgICAgICAgICAgICAgICAgICAgICAgICAgICAgICAgICAgICAgICAgICAgICAgDQogICAgICAgIC AgICAgICAgICAgICAgICAgICAgICAgICAgICAgICAg ICAgICAgICAgICAgICAgICAgICAgICAgICAgICAgICAgICAgICAgICAgICAgICAgICAgICAgICAgICAg DQogICAgICAgICAgICAgICAgICAgICAgICAgICAgICAgICAgICAgICAgICAgICAgICAgICAgICAgICAg ICAgICAgICAgICAgICAgICAgICAgICAgICAgICAgIC AgICAgICAgICAgDQogICAgICAgICAgICAgICAgICAgICAgICAgICAgICAgICAgICAgICAgICAgICAgIC AgICAgICAgICAgICAgICAgICAgICAgICAgICAgICAgICAgICAgICAgICAgICAgICAgICAgDQogICAgIC AgICAgICAgICAgICAgICAgICAgICAgICAgICAgICAg ICAgICAgICAgICAgICAgICAgICAgICAgICAgICAgICAgICAgICAgICAgICAgICAgICAgICAgICAgICAg ICAgDQogICAgICAgICAgICAgICAgICAgICAgICAgICAgICAgICAgICAgICAgICAgICAgICAgICAgICAg ICAgICAgICAgICAgICAgICAgICAgICAgICAgICAgIC AgICAgICAgICAgICAgDQogICAgICAgICAgICAgICAgICAgICAgICAgICAgICAgICAgICAgICAgICAgIC AgICAgICAgICAgICAgICAgICAgICAgICAgICAgICAgICAgICAgICAgICAgICAgICAgICAgICAgDQogIC AgICAgICAgICAgICAgICAgICAgICAgICAgICAgICAg ICAgICAgICAgICAgICAgICAgICAgICAgICAgICAgICAgICAgICAgICAgICAgICAgICAgICAgICAgICAg ICAgICAgDQogICAgICAgICAgICAgICAgICAgICAgICAgICAgICAgICAgICAgICAgICAgICAgICAgICAg ICAgICAgICAgICAgICAgICAgICAgICAgICAgICAgIC AgICAgICAgICAgICAgICAgDQogICAgICAgICAgICAgICAgICAgICAgICAgICAgICAgICAgICAgICAgIC AgICAgICAgICAgICAgICAgICAgICAgICAgICAgICAgICAgICAgICAgICAgICAgICAgICAgICAgICAgDQ j8X9wyUJYaBXAeVZ6aABh4Xk1+CGdVUkQmWHW6kaOf oO4TYJ7yp7UxLKwuEJGgr3SiBEx4QO3YEYKiJAemIN3TQHydfw2XPGMcKICwdGHBb3vlRlRvZNE0YJZb MsklTK9OMYTtA8bpsmYeQJVjPJJYAWujGUQQFIvqJZPGGIGkWLZjPxToCPoaJU6Ju0KmoBQ0PCs+Pg0K BK1pg7CrTPuhThPgIC6pqk5PGRxZQqKuI2HxjhE4TG OuKJOaXc1MISDoOLGblRLkMlHdKLMFQlZuP3UddQ37KILEGw9+GWcyqxTeQcbOMnJyMXHad2GbQTu2TT 2BPTYtWRd2lTRyFE9daZPnlDWwVEiuJC5VDKX3XNggTOSfLANRQF9BSJbnBPF8YilkzsAlxJRvDZeuOK 9QYXJlbnQgMjIgMCBSDQo+Fz6VZA4ho5DtUUwjZVQe IL0nzu7NPUyNXgBpC9D3rMSeL8V9PAfhFx5HIQMkJLRlNgGeAOAAYMpzYL7DEE3lepK0RZ9BaQPyCGNd XRUfnAAtNKj4I51ogUYrYJfzHO8UOQM+Doroteo+Ks8XXFLnAANcYZNlRlZgBLJLPpBlE2IbY4UQa7QiM9Rv PY31eYoonqBcDIsmYC2JUW2oXJUgGVQSVD4XrAKtyG 7cqtUuIgYnPJKERnCmR35fpKOkTFZzHKXuAZObXn4QEBEwJ2ZatlOwmNjsckFqSZJdJRAMTC5AJWbbbd ZniTCdlYyfPA19iIsrGC5TYt7MVgHwWD8ytn1QxUJlYx4ZDUIuON4DNYGaKJEqDWZcELY8BISjCeKaYK jwCXUeBHRmETJ8PDFmUMBtWS2FVkUdOOBzJJn4ADFh OKPtGIHygl1GURMhTVNgZQFfBVFtRNOoZZJgLUleZICiQIEcKJl9KBEbOVLyWS1FPiQfFXQoRRMbCFAc ILGqOBCbaj2HZQBcMONuLgRyYvOlUAJdCEFiORqiZICaOGB0DvP7PTAlDQTbJR4YPkYzDTMgBXZ0EJza OOBxJSBtvj1XLMIjJJAtZQKfYkYrKLXoYBRoZVbbNL IoGRR9OnL0DGGpDSLfEM4LAaJpPPHgQBVePITvAFNaFDTvnn7ZZRVuWLJgEGB7BPWhNRYcPBGmJWkbHP RiDQTyPTK7LZBnWPPhBR0HUgCjWVNbMJD1HETtZTIcXVTnal1VZLLdIEBrKLb6UTLsPFNqLSTmLLqiLV LqXVDkEFL7MGBuUFIqHT5NXlAaGNWvPCQkNoXjNQWe ZELevg9HGRDgTHItAbR1PAXbDIKmZBAiLNvzSDZdTNK4BHZkHBFdEKFaKB2PUyGwAMGmTZs8AlJpFYTn GHTsox3PMVAeOGMhRHN0OYGtDYHwZFAlLLsqJQIiMBKzCuSgNSVyOCTgQC3XScBmMVThIdV6NMDyRFEm YGLmyu2FSEMjPSJlQDlmJdVgPKAlFNJmDVa3oyIthM WxDEs0GD6ZC9HwxuWsFuKKYf6Kb763IAY1IGQwTq5CX7xlCe0xYTGcDLLFFv9CZAy0ZMKbIkhhIjB7DP SfABBhYEq6AyZqMTI7ISC9SeK5PJB+UEyjQEX7Y2AoEQs3FbC3ARQqBDshEnZ6EAx5JCVxRbH9XG2kLH ANCj4+NWoalTDpzCwvSADOHtRyGXA5VIinLUQOEd7S ID Date Data Source [id number] 11/19/2020 11:45:51 AM EDT [facility] INFORMATIONPatient MRN Name Date of Age Gend*PT [id number] Gallito Hinojosa 1995 25 years M HOPPT Location Admission Date/Time Visit ID Attending Provider --- --- --- --- EPI ID CSN Admitting Pro vider [id number] ---Arterial Line PlacementPatient location during procedure: ORIndications [...] rce(s) Supporting Document(s) ID Date Data Source [id number] 11/19/2020 11:45:21 AM EDT [facility] NT INFORMATIONPatient MRN Name Date of Age Gend*PT [id number] Gallito Hinojosa 1995 25 years M HOPPT Location Admission Date/Time Visit ID Attending Provider --- --- --- --- EPI ID CSN Admitting Pro vider [id number] ---AirwayPatient location during procedure: ORUrgency: electiveDifficult airway: noAdvanced airway equipment used: noStaffingPerformed by: Mathew Stewart, AVTARAnesthesiologist: Keith Lindseyications and Patient ConditionIndications for airway management: anesthesiaPreoxygenated: [...] cmPlacement verified by: chest auscultation and + [id number]: CTA and equal breath sounds bilateralGrade view: grade IIa - partial view of glottis Name Value Range Interpretation Code Description Data Sera rce(s) Supporting Document(s) ID Date Data Source [id number] 11/19/2020 10:48:37 AM EDT [facility] NT INFORMATIONPatient MRN Name Date of Age Gend*PT [id number] Gallito Hinojosa 1995 25 years M HOPPT Location Admission Date/Time Visit ID Attending ProviderCV-11 11/19/20 1035 --- Ward Durán MD([id number]) EPI ID CSN Admitting Provider [id number] Ward Durán MD([id number])H&P reviewed. The patient was examined and there are no changes to the H&P.Ward Durán MD10:48 AM Name Value Range Interpretation Code Description Data Sera rce(s) Supporting Document(s) ID Date Data Source [id number] 11/16/2020 10:08:39 AM EDT [facility] Name Value Range Interpretation Code Description Data Sera rce(s) Supporting Document(s) EKG [facility] BLZQHx6cYtULLzBgq0ThUwErYTDpRT0mcuq7J6M6dJEyG8JzeLUix1xjR3YoS7VwPPDwOLZSHJ7EdDBm jb2 [file] OTggMDAwMDAgbiAKMDAwMDAwMDQwOSAwMDAwMCBuIA jqBTOgLZSiKZLoIPWeANMmVU6kTeSvPNClVZF3AFAtHEZhDVZrkmCPLUUeQGLwORa0TTScMBAfGHJiOH nhCZHpMCAoTHJ2MPZyKVCgGF5nKlSgDTCjAJP5BuUfUBFwSMNpupVPAACzAIElQKT1GhTrSLJyLCKuQO qyYLXdWARxROdpVLYfXWTsQS9sPoYtXDUfZOGqVWmo FDZeTAOpeiXUOWSzLFBoCLThSvVqBKAsFUBiLEmcVDVvLEEoWrE6IAIbCYNvCI0dTyUjWWSnXWD3JPvr OIDxECYngfSBWGPyGNSqRVmjANPcQSDfDRAhUNqqTDVnLCQqSVT2SRPqIQTtBB2eHtEnYLDeNXNdZRAj PtU2WqLkZbTSbVLbcXyliwv5KEkyV1h3ICWoJNxeAF 2zznPrFJDfVlpgCy8guRW3TQGdEljBAz2Re6RgknI3qvLvPgWtNmGaNqEmGF9M ID Date Data Source [id number] 11/16/2020 09:13:47 AM EDT [facility] NT INFORMATIONPatient MRN Name Date of Age Gend*PT [id number] Gallito Hinojosa 1995 25 years M OPPT Location Admission Date/Time Visit ID Attending Provider --- --- --- Violeta Ortega([id number]) EPI ID CSN Admitting Provider [id number] ---OUTPATIENT / OBSERVATIONAL SURGICAL OR INVASIVE PROCEDUREName: Gallito Camargo : 1995 Sex: male Care Provider[facility] CareAttending Physician: Dr. Blanca OF PRESENT ILLNESS: Mr Camargo is a 25 years old -[place]ian malewith history of depression, anxiety, GERD, and [...] RECORDER 08/2020 WISDOM TOOTH EXTRACTION localALLERGIES:AllergiesAllergen Reactions Big Laurel Meal Anaphylaxis Avocado AnaphylaxisMEDICATIONS:Prior to Admission medicationsMedication Sig Start Date End Date Taking? Authorizing Providermetoprolol tartrate (LOPRESSOR) 25 MG tablet Take 100 mg by mouth daily 1 1/2 qdHistorical Provider, MDOmeprazole 20 MG TBEC Take 20 mg by [...] thyromegaly. No carotid bruits.MENTAL / NEUROLOGICAL STATUS: [id number]: Clear to auscultation. No wheezes, rhonchi or crackles.HEART: Rate rhythm regular. S1, S2. No murmur, rub or gallop.ABDOMEN: Bowel sounds positive times four. Soft, non tender. No reboundtenderness. No hepatosplenomegaly. Negative CVAT.EXTREMITIES: Pulses are symmetrical. NO edema.[facility]esthesia complications: [facility] :: 3/10 Managing Well (medical [...] parts of this document, were dictated using [employer] software. A reasonable attempt at proofreading has beenmade to minimize errors. Please call with any questions or corrections.* Name Value Range Interpretation Code Description Data Sera rce(s) Supporting Document(s) ID Date Data Source [id number] 11/16/2020 05:46:21 PM EDT [facility] SPEC EXP DATE 1PATI ENT ABO/Rh O POSITIVEANTIBODY SCREEN NEGATIVETESTING SITE PERFORMED AT [address] [place] [address] [id number] BANK COMMENT BLOOD TYPE CONFIRMED. Name Value Range Interpretation Code Description Data Sera rce(s) Supporting Document(s) TYPE AND SCREEN [facility] ID Date Data Source [id number] 11/16/2020 04:03:58 PM EDT [facility] Name Value Range Interpretation Code Description Data Sera rce(s) Supporting Document(s) WBC 3.7 10*3/uL (4.1-11.0) L [facility] RBC 4.93 10*6/uL (4.60-6.10) [facility] HGB 15.3 g/dL (13.5-18.0) [facility] HCT 45.9 % (41.0-53.0) [facility] MCV 93.3 fL (80.0-95.0) [facility] MCH 31.0 pg (27.0-32.0) [facility] MCHC 33.2 g/dL (32.0-36.0) [facility] RDW 13.7 % (10.5-14.5) [facility] PLT 149 10*3/uL (150-450) L [facility] MPV 11.0 fL (7.1-10.7) H [facility] ID Date Data Source [id number] 11/16/2020 03:47:26 PM EDT [facility] Name Value Range Interpretation Code Description Data Sera rce(s) Supporting Document(s) SODIUM 140 mmol/L (136-145) [facility] POTASSIUM 4.3 mmol/L (3.6-5.2) [facility] CHLORIDE 104 mmol/L (100-108) [facility] CO2 32 mmol/L (22-31) H [facility] ANION GAP 4 mmol/L (7-16) L [facility] UREA NITROGEN 14 mg/dL (7-24) [facility] CREATININE 1.01 mg/dL (0.80-1.30) [facility] BUN/CREAT RATIO 13.9 RATIO (10.0-20.0) [facility] GLUCOSE 89 mg/dL (70-99) [facility] CALCIUM 9.3 mg/dL (8.4-10.2) [facility] GFR >60 ml/min/1.73m2 (>59) [facility] GFR ( AMER) >60 ml/min/1.73m2 (>59) [facility] GFR INTERPRETATION [facility] --NORMAL KIDNEY FUNCTION OR MILD DISEASE - GFR >OR= 60CHRONIC KIDNEY DISEASE - GFR 15 - 59RENAL FAILURE - GFR <15 Est. GFR calculation based on the MDRDstudy equation, which assumes a steadystate for creatinine. Est. GFR should notbe used for medication dosing. ID Date Data Source [id number] 09/23/2020 04:40:52 PM EDT [facility] NT INFORMATIONPatient MRN Name Date of Age Gend*PT [id number] Gallito Hinojosa 1995 25 years M ---PT Location Admission Date/Time Visit ID Attending Provider --- --- --- --- EPI ID CSN Admitting Pro vider [id number] ---[facility] [id number] [facility], [address] (First Floor)[place], [place] [address]Aq.: Fax: Aatient: Gallito Camargo : 1995Date: 04/14/21CARDIOLOGY TELEMEDICINE VISITPatient was identified by name and date of .Verbal consent was obtained from the patient for this telemedicine visit.Patient is aware of the risks, limitations, and benefits of a telemedicinevisit.This telemedicine assessment was conducted remotely with the assistance ofFab communication technology. Telephone Only Codes 73348: 21-30 minutesof medical discussion: Telephone Only .Subjective:Gallito [...] and benefitsFollow Up cryoablationSignature: Ward Durán MD, [facility]PITALCardiac Electrophysiology and Arrhythmia ServiceDate: September 23, 2020Time: 4:37 PMThis document or parts of this document, were dictated using Ub[employer]is[employer]ware. A reasonable attempt at proofreading has been made to minimize errors.Please call with any questions or corrections. Name Value Range Interpretation Code Description Data Sera rce(s) Supporting Document(s) ID Date Data Source [id number] 08/17/2020 11:31:00 AM EST [facility] Name Value Range Interpretation Code Description Data Sera rce(s) Supporting Document(s) SARS coronavirus 2 RNA Not Detected [facility] This lab was ordered by [facility] and reported by [facility]. ID Date Data Source [id number] 07/09/2020 03:02:00 PM EST [facility] ([facility] Name Value Range Interpretation Code Description Data Sera rce(s) Supporting Document(s) Calcium [Mass/volume] in Serum or Plasma 9.3 [facility] ([facility]) Sodium 141 [facility] Chloride [Moles/volume] in Serum or Plasma 103 [facility] ([facility]) Carbon dioxide, total [Moles/volume] in Serum or Plasma 32.5 [facility] ([facility]) Potassium [Moles/volume] in Serum or Plasma 4.20 [facility] ([facility]) Glucose 120 74-106 [facility] ([facility]) Blood Urea Nitrogen 11 7-18 [facility] ([facility]) Creatinine 1.05 0.70-1.30 [facility] ([facility]) Glomerular filtration rate/1.73 sq M.pre dicted [Volume Rate/Area] in Serum or Plasma by Creatinine-based formula (MDRD) 99.6 [facility] ([facility]) ID Date Data Source [id number] 06/24/2020 11:06:40 AM EST [facility] NT INFORMATIONPatient MRN Name Date of Age Gend*PT [id number] Gallito Hinojosa 1995 25 years M ---PT Location Admission Date/Time Visit ID Attending Provider --- --- --- --- EPI ID CSN Admitting Pro vider [id number] ---[facility] [id number] [facility], [address] (First Floor)[place], [place] [address]Ft.: Fax: Xatient: Gallito Camargo : 1995Date: 06/24/20CARDIOLOGY TELEMEDICINE VISITPatient was identified by name and date of .Verbal consent was obtained from the patient for this telemedicine visit.Patient is aware of the risks, limitations, and benefits of a telemedicinevisit.This telemedicine assessment was conducted remotely with the assistance ofFab communication technology. Telephone Only Codes [id number]: 21-30 minutesof medical discussion: Telephone Only .Subjective:Gallito [...] [place]. [place] PV[place]. I am not sure he is having anyatrial fibrillation at all. I am not sure any of his symptoms already beencardiac in nature. This may all be anxiety driven. However we will need tocorrelate symptoms to his underlying cardiac rhythm. 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 If the event monitor shows atrial fibrillation [...] event monitor shows atrialfibrillationSignature: Ward Durán MD, [facility]PITALCardiac Electrophysiology and Arrhythmia ServiceDate: June 24, 2020Time: 11:02 AMThis document or parts of this document, were dictated using Ub[employer]isysware. A reasonable attempt at proofreading has been made to minimize errors.Please call with any questions or corrections. Name Value Range Interpretation Code Description Data Sera rce(s) Supporting Document(s) ID Date Data Source [id number] 05/22/2020 12:50:00 PM EST [facility] ([facility]) Name Value Range Interpretation Code Description Data Sera rce(s) Supporting Document(s) Troponin [facility] ID Date Data Source [id number] 05/22/2020 12:50:00 PM EST [facility] ([facility]) Name Value Range Interpretation Code Description Data Sera rce(s) Supporting Document(s) White Blood Count 4.5 4.0-10.0 [facility] ([facility]) Red Blood Count 5.33 4.30-6.10 [facility] ([facility]) Platelets 168 150-450 [facility] ([facility]) Hemoglobin 15.7 [facility] ([facility]) Hematocrit 48.2 [facility] ([facility]) ID Date Data Source [id number] 05/22/2020 12:50:00 PM EST [facility] ([facility]) Name Value Range Interpretation Code Description Data Sera rce(s) Supporting Document(s) Calcium [Mass/volume] in Serum or Plasma 9.7 [facility] ([facility]) Sodium 138 [facility] Carbon dioxide, total [Moles/volume] in Serum or Plasma 30 [facility] ([facility]) Potassium [Moles/volume] in Serum or Plasma 4.4 [facility] ([facility]) Chloride [Moles/volume] in Serum or Plasma 104 [facility] ([facility]) Blood Urea Nitrogen 14 7-18 [facility] ([facility]) Glucose 70 70-100 [facility] ([facility]) Glomerular filtration rate/1.73 sq M.pre dicted [Volume Rate/Area] in Serum or Plasma by Creatinine-based formula (MDRD) Laboratory test result [facility] ([facility]) Creatinine 1.06 0.70-1.30 [facility] ([facility]) ID Date Data Source [id number] 04/02/2020 02:04:26 PM EDT [facility] NT INFORMATIONPatient MRN Name Date of Age Gend*PT [id number] Gallito Hinojosa 1995 25 years M ---PT Location Admission Date/Time Visit ID Attending Provider --- --- --- --- EPI ID CSN Admitting Pro vider [id number] ---Cardiology Office NoteName: Gallito Camargo Gender: maleDate of : 1995 Age: 25 yearsPrimary Care Provider / Referring Phys[facility] HistoryChief Complaint: Follow-up to recent cryoablation for atrial fibrillationHPI:This patient is a 25 years male presents today for follow-up. He has thefollowing medical problem list:1. Paroxysmal atrial fibrillation; status post cryoablation 03/20/2020Patient presents today for follow-up. He tells me that he did have episode ofchest pain and feeling short of breath postprocedure. [facility] He states that those symptoms have [...] file Gets together: Not on file Attends mormonism service: Not on file Active member of [...] History Narrative Not on fileMedications and AllergiesALLERGIES/SENSITIVITIES: Big Laurel meal and AvocadoCurrent Outpatient Medications: metoprolol tartrate [...] parts of this document, were dictated using [employer]ebow[employer]. A reasonable attempt at proofreading has been made to minimize errors.Please call with any questions or corrections. Name Value Range Interpretation Code Description Data Sera rce(s) Supporting Document(s) ID Date Data Source [id number] 03/24/2020 12:46:00 PM EDT [facility] Name Value Range Interpretation Code Description Data Sera rce(s) Supporting Document(s) Free T4 1.05 [facility] ([facility]) Thyroid Stimulating Hormone 0.923 [place] [facility] ([facility]) ID Date Data Source [id number] 03/24/2020 12:46:00 PM EDT [facility]) Name Value Range Interpretation Code Description Data Sera rce(s) Supporting Document(s) Aspartate aminotransferase [Enzymatic activity/volume] in Serum or Plasma 24 [facility] ([facility]) Alkaline phosphatase [Enzymatic activity/volume] in Serum or Plasma 7 3 [facility] ([facility]) Alanine aminotransferase [Enzymatic activity/volume] in Serum or Pl asma 45 [facility] ([facility]) Protein [Mass/volume] in Serum or Plasma 7.6 [facility] ([facility]) Bilirubin.direct [Mass/volume] in Serum or Plasma Laboratory test res ult [facility] ([facility]) Bilirubin.total [Mass/volume] in Serum or Plasma 0.4 [facility] ([facility]) Albumin [Mass/volume] in Serum or Plasma 4.0 [facility] ([facility]) Cholesterol [Mass/volume] in Serum or Plasma Laboratory test result [facility] [facility]) ID Date Data Source [id number] 03/24/2020 12:46:00 PM EDT [facility] ([facility]) Name Value Range Interpretation Code Description Data Sera rce(s) Supporting Document(s) Calcium [Mass/volume] in Serum or Plasma 9.6 [facility] ([facility]) Sodium 138 [facility] ([facility]) Carbon dioxide, total [Moles/volume] in Serum or Plasma 30 [facility] ([facility]) Potassium [Moles/volume] in Serum or Plasma 4.1 [facility] ([facility]) Chloride [Moles/volume] in Serum or Plasma 103 [facility] ([facility]) Blood Urea Nitrogen 11 7-18 [facility] ([facility]) Glucose 95 70-100 [facility] ([facility]) Creatinine 0.98 0.70-1.30 [facility] ([facility]) Glomerular filtration rate/1.73 sq M.pre dicted [Volume Rate/Area] in Serum or Plasma by Creatinine-based formula (MDRD) Laboratory test result MEDENT ([facility]) ID Date Data Source [id number] 03/24/2020 12:46:00 PM EDT [facility] ([facility] Name Value Range Interpretation Code Description Data Sera rce(s) Supporting Document(s) White Blood Count 5.1 4.0-10.0 [facility] Red Blood Count 5.06 4.30-6.10 [facility] Platelets 132 150-450 [facility] Hemoglobin 15.4 [facility]) Hematocrit 46.5 [facility]) ID Date Data Source [id number] 03/20/2020 10:39:41 AM EDT [facility] Name Value Range Interpretation Code Description Data Sera rce(s) Supporting Document(s) &PDF [facility] FONPTp0dRbNOZxWp75/CENrmHTGwt5JxMUsbWBn1QZzfZTRvM0RmbEujPHhSQS2tXhNMGCaUDNUhRFZF yZW K2w9QfZMDfIfWUvLG5ZP5iSCGkgzViqvV8xX8iNO7WXRV+Kw8ZLW0du1QjTLy0ZCTnc2IqRSkyTDt4L8 RzxEAnqxFaConfkUMEBQTyQZWtA4xkiyt8uHAcNdW1Ad2TRfGcl3YpJGFmJJfPdmKbP9/jNhZ+X6D/gc A+dAo0MW+kwHAw6ghdezcGGVOAnkMXV1HPSO8qX5CC aFsre4ZdbAglEZzXVXfVAeEixo9d9bhLUwZLkD2/oOMwwBgj/hR8XSAE1aX10w7ts0hQJhjhi6Kz/TkQ uCxEOczBjtmtJRH4vkEqYwcbDXdeANDmeUGyJN6u6GfFlsuqtRWSPlxcf+riEnEZMHREBeZotngz/Q7N /isG4kzKmQnNoSMac3VyQyIVht+FApgNSlFN0GMB8m QL98C5H6MdjxgqHIXdeSDSmY42E6SiWVvIjhmTaFQILT8O2Oc9974QuaAnAqVJJt8mSypIDk+a545psx nyNI7yBzvg7+X5zJ/GoLyQZezeYshdbeVbsQmNrWLLRunK9G1ntuhBPibosBMCW0dS/ByK8ExXCNOhhV TMIit3iKtIlhF7F4S0AcjV+Ut46y+hpHOlnxGGQl8I t84KCJQqpFZIKsXRzPIEUNAJfQJZGAON0n3KiTYMVFHhwnY40MtuligEJ0tcRRKI6MgzqX5IfrXAOZYV [file] B1OzMrSWZwAPZ4YXDgItnxJx0ySVIPOs1+JQrrcMUepDivIHUWIlW1EvJ0BPjhDJGSDj5L ID Date Data Source [id number] 03/20/2020 09:48:22 AM EDT [facility]FORMATIONPatient MRN Name Date of Age Gend*PT [id number] Gallito Hinojosa 1995 25 years M HOPPT Location Admission Date/Time Visit ID Attending Provider --- --- --- --- EPI ID CSN Admitting Pro vider [id number] ---Arterial Line PlacementPatient location during procedure: ORIndications for arterial line: hemodynamic monitoringStaffingPerformed by: Rebel Arguelles MDApproved by: TIFFANY Johnsonompleted: patient identified, risks and benefits discussed, surgical [...] rce(s) Supporting Document(s) ID Date Data Source [id number] 03/20/2020 09:47:46 AM EDT [facility]FORMATIONPatient MRN Name Date of Age Gend*PT [id number] Gallito Hinojosa 1995 25 years M HOPPT Location Admission Date/Time Visit ID Attending Provider --- --- --- --- EPI ID CSN Admitting Pro vider [id number] ---AirwayPatient location during procedure: ORUrgency: electiveDifficult airway: [...] cmPlacement verified by: chest auscultation and + [id number]: equal breath sounds bilateral and CTAGrade view: grade I - full view of glottis Name Value Range Interpretation Code Description Data Sera rce(s) Supporting Document(s) ID Date Data Source [id number] 03/20/2020 08:48:41 AM EDT [facility] INFORMATIONPatient MRN Name Date of Age Gend*PT [id number] Gallito Hinojosa 1995 25 years M HOPPT Location Admission Date/Time Visit ID Attending Provider-03/20/20 0756 --- Ward Durán MD([id number]) EPI ID CSN Admitting Provider [id number] Ward Durán MD([id number])H&P reviewed. The patient was examined and there are no changes to the H&P.Ward Durán MD8:48 AM Name Value Range Interpretation Code Description Data Sera rce(s) Supporting Document(s) ID Date Data Source [id number] 03/15/2020 08:21:00 AM EDT [facility] Name Value Range Interpretation Code Description Data [facility] Supporting Document(s) SARS coronavirus 2 RNA [facility] This lab was ordered by [facility] and reported by [facility]. ID Date Data Source [id number] 03/17/2020 03:07:40 AM EDT Lab [facility] Name Value Range Interpretation Code Description Data [facility] Supporting Document(s) SARS-COV-2 MYAH Lab [facility] Not DetectedReference range: Not Detecte d This nucleic acid amplification test was developed and its performance characteristics determined by [facility]. Nucleic acid amplification tests include PCR and [...] detected) result in this assay. Performed At: [facility] [address] [id number] Jorge Fernando MD Ph:[phone] ID Date Data Source [id number] 03/13/2020 01:31:20 PM EDT [facility] INFORMATIONPatient MRN Name Date of Age Gend*PT [id number] Gallito Hinojosa 1995 25 years M OPPT Location Admission Date/Time Visit ID Attending Provider --- --- --- Violeta Ortega([id number]) EPI ID CSN Admitting Provider [id number] ---OUTPATIENT / OBSERVATIONAL SURGICAL OR INVASIVE PROCEDUREName: Gallito Camargo : 1995 Sex: male Care Provider: [facility] CareAttending Physician: Dr. Durán.HISTORY OF PRESENT ILLNESS: 25 years old black male with a 3-year history ofpalpitations, shortness of breath and syncope related to a diagnosis of atrialfibrillation. He is currently serving in the [employer] and was to undergo anatrial fibrillation ablation last year in [place] and declined due to theinexperience of the director medical science. His last syncopal episode was inD2018. He [...] Laterality Date WISDOM TOOTH EXTRACTION localALLERGIES:AllergiesAllergen Reactions [place] Meal Anaphylaxis Avocado AnaphylaxisMEDICATIONS:Prior to Admission medicationsMedication [...] thyromegaly. No carotid bruits.MENTAL / NEUROLOGICAL STATUS: [id number]: Clear to auscultation. No wheezes, rhonchi or crackles.HEART: Rate rhythm regular. S1, S2. No murmur, rub or gallop.ABDOMEN: Bowel sounds positive times four. Soft, non tender. No reboundtenderness. No hepatosplenomegaly. Negative CVAT.EXTREMITIES: Pulses are symmetrical. No edema.Anesthesia complications: DeniesHA Frailty Scale :: 1/10 Very Fit (robust, active, energetic, well motivatedand fit.These people commonly exercise regularly and are in the most fit groupfor their age).Stop Bang Questionnaire - Total Score:STOP-Bang Total Score: 2ASSESSMENT: Paroxysmal atrial fibrillationPLAN: Procedure: Atrial fibrillation ablation and transesophageal echo.03/13/2020 1:31 PMHarini Hopper document or parts of this document, were dictated using [employer] software. A reasonable attempt at proofreading has beenmade to minimize errors. Please call with any questions or corrections.* Name Value Range Interpretation Code Description Data Sera rce(s) Supporting Document(s) ID Date Data Source [id number] 03/13/2020 12:40:00 PM EDT [facility] Name Value Range Interpretation Code Description Data Sera rce(s) Supporting Document(s) Red Blood Count 5.10 [facility] ([facility]) White Blood Count 4.0 [facility] ([facility]) Platelets 130 [facility] ([facility]) Hemoglobin 15.9 [facility] ([facility]) Hematocrit 47.3 [facility] ([facility]) ID Date Data Source [id number] 03/13/2020 12:40:00 PM EDT [facility] ([facility]) Name Value Range Interpretation Code Description Data Sera rce(s) Supporting Document(s) Sodium 140 [facility] ([facility] Carbon dioxide, total [Moles/volume] in Serum or Plasma 33 [facility] ([facility]) Calcium [Mass/volume] in Serum or Plasma 9.5 [facility] ([facility]) Chloride [Moles/volume] in Serum or Plasma 104 [facility] ([facility]) Glucose 85 [facility] ([facility]) Blood Urea Nitrogen 11 [facility] ([facility]) Potassium [Moles/volume] in Serum or Plasma 4.1 [facility] ([facility]) Glomerular filtration rate/1.73 sq M.pre dicted [Volume Rate/Area] in Serum or Plasma by Creatinine-based formula (MDRD) Laboratory test result [facility] ([facility]) Creatinine 1.02 [facility] ([facility]) ID Date Data Source [id number] 03/13/2020 12:11:56 PM EDT [facility] Name Value Range Interpretation Code Description Data Sera rce(s) Supporting Document(s) EKG [facility] FIAPPz5yOuVTLqLqq4OhWkObGHFnDK5powx1O3O3rIGnT7SptOXhf6klT9UgI3QqJFVvNCKHVV4VdEMm jb2 [file] f/mixer attendant/4///xFPz3/CrmZ53e03En3G/Cf8MEdt/seaM7R91H+doeC1UQC+SyM/9yz+PIRSP/cs/i/P8L/ 530Qz91k3p/0EY78dou/lPhhtTYmgrp77KK16pi+1P 2exX/4v2fxH/CexZeap+fsUm8zbgy/QVinSiDEVZtnXCCyKUqgiCoLIGANF4SCxKYrOvMYfnXNGCHwTp e93NOH036lDmZZfkeyo6cq9GEx1lK3m/+AvFIIKkEyqHningzKexZ/Qe2sTgjmEH6/7ln8X+SNf+5Z/J +j+z/7XA9YjuQtQRTvgJPflIT2vjmXX+xAr7YCAPNF MB+EHIgMOIEdG3RN9bt89Rq24GgfbPGpK5O1WC0IZRTVbUoSgsKgxI8oFNjASvlG+yEIgkJABpsMNhls QqqycKywo5M9QvSgNAONdBY5zqTbIQLQJPXVMPcWCQCBWLiRCWSJDWpQCDLQYRXxRHWKsJSMVEOWKkQS [file] 58Sz5u7Q80oA+/JVh/sjoXpRPJkmtemffX2h4U8 [file] 55HVM0BZCfq715U62cL6DcdvTeoTa6u88/94mML0+Z eJz+ha1bRxlA4T0pR2WuZ97xS+3IagiS+Qw6i/7P0zWqM9FajwvRIaloA9jkQPE6cR1bEwzDgt/g80s9 cqEwOwLCR5kiWvlSohdpYaQdqSVCzaRPPzRqs1MC3TxWIeRLVxA5B5YNCgrf8zOIDxDWAtpOHtFeMaVR VIKD6MsOCrJP4PYYh7CWReOQQxPtZyOVCzokW0YZSe WBOaETTxG0XnhuXkbZTnCEIhOv2+CH7up1XaGoHyHCTdVid4CW9AfDWeIT7NwFKnpD7evxJgH853ruAn YUTuDntue0JbACfzXQZGYV1RJFF9MDQ5TUQhXq2+MH9ba6MmAnIiVNCqGis2MC5ZdJEwq3ZfGB5BF5Kv NFMuEYTTNDL3r5LwSHAfdjqzexlpL4OcUUC9nP8kTL G2KROfEAqsODHqRRSbSzKaOMIdRVnfDXWqVYGdSFPqYCAsLXf7tEFtKM7MW0VpXEEyWXGBPHVkieFpDu 7bOYdPYQ1dCnGVUSxRFJMiCE3RWyNpGEUyQsq5ViM8BZIoN4EswrWjrKMfSVZEFJcsPcfsWVBqyB5ktQ vgR2UjQGN0y3EiLU7QJ3CeCXXkFFCCAIX8t2ClPOWc pycrahdqJyDrIVOsPSOaXKRqSK8Wyn3faAYifsZnQVYODJpzWpqmLB3kwEkffgjyX6KfeXTmZPI+PmVu OY4snd0+RoCyYRTaXzx8WDLwXXfrEYOwESHjJGVpT8bmFXOxEoIdIFIcCpWlGH9Ke1PnpKFiPk9wsnIg YmoKeHJlZgogICAgIDAgICAgMjQKMDAwMDAwMDAwMC M8VEUaNCXjHVwtDAXyESMcQIroXVXwDBZpFR1fTxAbANLeURT3KGTvRXBmKALvelAXKSIoCQL7GYfwDL TwCHEcEPNbCUbqETXkNEVeKJCnXXU1DWM0YZYdOrOgIXXkHHVxERVqITQjNJHpwtVMLXTnDYXcPIR0JY IfSYDlRYFrLLmtWFTzBGZkOIbfNDKdCYXtTH4sKiSa KSNaQTIqXPobCAHpGXTtlvRNISLhWCZfGOUbKRDgDYGpIEPdMDzjGQPrHKVgYPRsGOTnRWWcMX3lXyXy BFZpAPX2XWGaWBPkFBXghpCNAMTrZCWbOXl9YQHoTFRcAMXaSRgiRWTfQEEyPEY5FNXdLXGdQC6cZmId IVCfNQH3YeSrUHSpOYSjdpXPKONbSZYwQXR4MyLkMR CsVLWkSZmqLFIgYESaBVlrZMIgYWYcQN6wCkYpUCUeFMHnRGauFPTxWEAxucXUXXMnPYGqUJDiKuBzIZ EnIIMhLFxiCWDmGOOeIjQjFBCsTOZfUZ8dKqYqJBRkOVT4BPthGDQjHNMkfbFWREYfDJEiKMlbVQEsFG TiCURuPAasIQTnZTDwMQL2JHHpWIFzWL3uGmDsJGAu OCKsJRTmYuS1GcWnLuXOzDEylKmrydr3LBzyF3j9BVRlKIrbXG7syfQmPXMjVqplUo3sfLL0BJClBwxP Mu7Qf5LssoT9nlCcTnOpOeD3AbUhFP5U ID Date Data Source [id number] 03/13/2020 10:22:00 AM EDT [facility] NGIO CHESTCLINICAL HISTORY: Persistent [...] rce(s) Supporting Document(s) ID Date Data Source [id number] 03/13/2020 07:44:40 PM EDT [facility] SPEC EXP DATE 03/21/2020PATI ENT ABO/Rh O POSITIVEANTIBODY SCREEN NEGATIVETESTING SITE PERFORMED AT [address] [place] [address] Name Value Range Interpretation Code Description Data Sera rce(s) Supporting Document(s) TYPE AND SCREEN [facility] PATIENT ABO/Rh O POSITIVE ID Date Data Source [id number] 03/13/2020 03:58:34 PM EDT [facility] Name Value Range Interpretation Code Description Data Sera rce(s) Supporting Document(s) SODIUM 140 mmol/L (136-145) [facility] POTASSIUM 4.1 mmol/L (3.6-5.2) [facility] CHLORIDE 104 mmol/L (100-108) [facility] CO2 33 mmol/L (22-31) H [facility] ANION GAP 3 mmol/L (7-16) L [facility] UREA NITROGEN 11 mg/dL (7-24) [facility] CREATININE 1.02 mg/dL (0.80-1.30) [facility] BUN/CREAT RATIO 10.8 RATIO (10.0-20.0) [facility] GLUCOSE 85 mg/dL (70-99) [facility] CALCIUM 9.5 mg/dL (8.4-10.2) [facility] GFR >60 ml/min/1.73m2 (>59) [facility] GFR ( AMER) >60 ml/min/1.73m2 (>59) [facility] GFR INTERPRETATION [facility] --NORMAL KIDNEY FUNCTION OR MILD DISEASE - GFR >OR= 60CHRONIC KIDNEY DISEASE - GFR 15 - 59RENAL FAILURE - GFR <15 Est. GFR calculation based on the MDRDstudy equation, which assumes a steadystate for creatinine. Est. GFR should notbe used for medication dosing. ID Date Data Source [id number] 03/13/2020 03:36:51 PM EDT [facility] Name Value Range Interpretation Code Description Data Sera rce(s) Supporting Document(s) WBC 4.0 10*3/uL (4.1-11.0) L [facility] RBC 5.10 10*6/uL (4.60-6.10) [facility] HGB 15.9 g/dL (13.5-18.0) [facility] HCT 47.3 % (41.0-53.0) [facility] MCV 92.6 fL (80.0-95.0) [facility] MCH 31.1 pg (27.0-32.0) [facility] MCHC 33.6 g/dL (32.0-36.0) [facility] RDW 13.8 % (10.5-14.5) [facility] PLT 130 10*3/uL (150-450) L [facility] MPV 10.4 fL (7.1-10.7) [facility] ID Date Data Source [id number] 03/09/2020 02:03:44 PM EDT [facility]FORMATIONPatient MRN Name Date of Age Gend*PT [id number] Gallito Hinojosa 1995 25 years M ---PT Location Admission Date/Time Visit ID Attending Provider --- --- --- --- EPI ID CSN Admitting Pro vider [id number] ---Addended by: SUBHA BLAND on: 03/09/2020 02:03 PM Modules accepted: Orders Name Value Range Interpretation Code Description Data Sera rce(s) Supporting Document(s) Procedure Social History Code Duration Value Status Description Data Source(s ) Alcohol intake 03/02/2021 12:00:00 AM EDT Ex-drinker (finding) comp leted Ex- drinker (finding) [facility] Alcohol intake 11/19/2020 12:00:00 AM EDT Ex-drinker (finding) comp leted Ex- drinker (finding) [facility] Alcohol intake 11/16/2020 12:00:00 AM EDT Ex-drinker (finding) comp leted Ex- drinker (finding) [facility] Alcohol intake 09/22/2020 12:00:00 AM EDT Not Currently completed [facility] Cigarette pack-years 09/22/2020 12:00:00 AM EDT UNK completed [facility] Cigarettes smoked current (pack per day) - Reported 09/23/19 12:00:00 AM EDT UNK completed [facility] Smoking 09/22/2020 12:00:00 AM EDT Current every day smoker co mpleted Current every day smoker [facility] Alcohol intake 06/24/2020 12:00:00 AM EST Not Currently completed [facility] Cigarette pack-years 06/24/2020 12:00:00 AM EST UNK completed [facility] Cigarettes smoked current (pack per day) - Reported 06/24/19 12:00:00 AM EST UNK completed [facility] Smoking 06/24/2020 12:00:00 AM EST Current every day smoker co mpleted Current every day smoker [facility] Vital Signs ID Date Data Source UNK Name Value Range Interpretation Code Description Data Source(s) Body weight 179.00 [lb_av] 179.00 [lb_av] MEDEN T ([facility]) in full uniform 8 lbs Body height 68 [in_i] 68 [in_i] [place] ([facility]) 5'8" Body mass index (BMI) [Ratio] 27.2 kg/m2 27.2 k g/m2 [facility] ([facility]) Heart rate 111 /min 111 /min [facility] ([facility]) 108, regular Systolic blood pressure--sitting 136 mm[Hg] 136 mm[Hg] [facility] ([facility]) Ra, large cuff Diastolic blood pressure--sitting 86 mm[Hg] 86 mm[Hg] [facility] ([facility]) Ra, large cuff Systolic blood pressure 120 mm[Hg] 120 mm[Hg] M EDENT ([facility] ) [place] body weight 148 [lb_av] 148 [lb_av] MEDEN T ([facility] ) Diastolic blood pressure 80 mm[Hg] 80 mm[Hg] [facility] ([facility] ) Heart rate 72 /min 72 /min [facility] ([facility] ) Body height 67 [in_i] 67 [in_i] [facility] ([facility] ) 5'7" Body weight 168.00 [lb_av] 168.00 [lb_av] MEDEN T ([facility] ) Body mass index (BMI) [Ratio] 26.3 kg/m2 26.3 k g/m2 [facility] ([facility] ) Body temperature 97.7 [degF] 97.7 [degF] [facility] ([facility] ) Body height 66 [in_i] 66 [in_i] [facility] ([facility] ) 5'6" Body weight 169.50 [lb_av] 169.50 [lb_av] MEDEN T ([facility] ) Body mass index (BMI) [Ratio] 27.4 kg/m2 27.4 k g/m2 [facility] ([facility] ) Systolic blood pressure 118 mm[Hg] 118 mm[Hg] [facility] Diastolic blood pressure 66 mm[Hg] 66 mm[Hg] [facility] Heart rate 101 /min 101 /min [facility] Oxygen saturation in Arterial blood by Pulse oximetry 99 % 99 % [facility] Body temperature 36.5 Delphine 36.5 Delphine [facility] Respiratory rate 18 /min 18 /min [facility] Body weight 76.794 kg 76.794 kg [facility] Body mass index (BMI) [Ratio] 26.52 kg/m2 26.52 kg/m2 [facility] Heart rate 85 /min 85 /min [facility] Systolic blood pressure 121 mm[Hg] 121 mm[Hg] [facility] Diastolic blood pressure 78 mm[Hg] 78 mm[Hg] [facility] Body temperature 36.28 Delphine 36.28 Delphine [facility] Respiratory rate 16 /min 16 /min [facility] Body height 170.2 cm 170.2 cm [facility] Body weight 76.658 kg 76.658 kg [facility] Body mass index (BMI) [Ratio] 26.47 kg/m2 26.47 kg/m2 [facility] Oxygen saturation in Arterial blood by Pulse oximetry 100 % 100 % [facility] Body weight 175.00 [lb_av] 175.00 [lb_av] MEDEN T ([facility]) in full uniform 8 lbs Body height 68 [in_i] 68 [in_i] [facility] ([facility]) 5'8" Body mass index (BMI) [Ratio] 26.6 kg/m2 26.6 k g/m2 [facility] ([facility]) Systolic blood pressure--sitting 124 mm[Hg] 124 mm[Hg] [facility] ([facility]) Ra, large cuff Diastolic blood pressure--sitting 72 mm[Hg] 72 mm[Hg] [facility] ([facility]) Ra, large cuff Body height 68 [in_i] 68 [in_i] [facility] ([facility] 5'8" Body weight 173.00 [lb_av] 173.00 [lb_av] MEDEN T ([facility]) in full uniform 6 lbs Diastolic blood pressure--sitting 72 mm[Hg] 72 mm[Hg] [facility] ([facility]) Ra, large cuff Body mass index (BMI) [Ratio] 26.3 kg/m2 26.3 k g/m2 [facility] ([facility]) Systolic blood pressure--sitting 122 mm[Hg] 122 mm[Hg] [facility] ([facility]) Ra, large cuff Body mass index (BMI) [Ratio] 26.1 kg/m2 26.1 k g/m2 [facility] ([facility]) Body weight 172.00 [lb_av] 172.00 [lb_av] MEDEN T ([facility]) in full uniform Body height 68 [in_i] 68 [in_i] [facility] ([facility]) 5'8" Systolic blood pressure--sitting 118 mm[Hg] 118 mm[Hg] [facility] ([facility]) Ra, large cuff Diastolic blood pressure--sitting 78 mm[Hg] 78 mm[Hg] [facility] ([facility]) Ra, large cuff Heart rate 72 /min 72 /min [facility] ([facility]) regular Respiratory rate 16 /min 16 /min [facility] ( [facility]) nonlabored Heart rate 71 /min 71 /min [facility] ([facility]) Body weight 175.00 [lb_av] 175.00 [lb_av] MEDEN T ([facility]) Systolic blood pressure--sitting 118 mm[Hg] 118 mm[Hg] [facility] ([facility]) large cuff, Ra Diastolic blood pressure--sitting 80 mm[Hg] 80 mm[Hg] [facility] ([facility]) large cuff, Ra Body height 68 [in_i] 68 [in_i] [facility] ([facility] 5'8" Body mass index (BMI) [Ratio] 26.6 kg/m2 26.6 k g/m2 [facility] ([facility]) Patient Treatment Plan of Care Planned Activity Planned Date Details Description Data Source (s) Flecainide Acetate 50 MG Oral Tablet 03/03/2021 12:00:00 AM EDT [facility] rivaroxaban 20 MG Oral Tablet 12/23/2020 12:00:00 AM EDT [facility] normal saline flush 0.9 % injection 3 mL 11/19/2020 02:00:00 PM EDT [facility] normal saline flush 0.9 % injection 3 mL 11/19/2020 02:00:00 PM EDT [facility] normal saline flush 0.9 % injection 3 mL 11/19/2020 02:00:00 PM EDT [facility] fentaNYL Citrate (PF) (SUBLIMAZE) injection 25 mcg 11/19/2020 01 :20:51 PM EDT [facility] HYDROmorphone (DILAUDID) injection 0.5 mg 11/19/2020 01:20:51 PM ED T [facility] Albuterol 0.833 MG/ML / Ipratropium [place] 0.167 MG/M L Inhalant Solution 11/19/2020 01:20:51 PM EDT [facility] 10 ML Atropine Sulfate 0.1 MG/ML Prefilled Syringe 11/19/2020 01 :20:50 PM EDT [facility] rivaroxaban 20 MG Oral Tablet 03/24/2020 12:00:00 AM EDT [facility]
[2021-05-05 15:15] LABS: RSV AMPLIFICATION NEGATIVE (NEGATIVE)
--- NOTE | 2021-05-05 16:09 | REP ---
INDICATION: Coronavirus workup COMPARISON: 04/22/2021 TECHNIQUE: Portable AP view of the chest FINDINGS: The mediastinum and cardiac silhouette are stable and within normal limits for portable technique. The lung baum are clear without acute consolidation, effusion, or pneumothorax. Skeletal structures are intact. Loop recorder overlies left cardiac silhouette. IMPRESSION: No acute cardiopulmonary process appreciated. <Electronically signed by Joce Clark > 05/05/21 2370
[2021-05-05 16:28] LABS: BASO % 0.7 % (0.0-1.0); EOS # 0.2 10^3/uL (0.0-0.5); EOS % 2.7 % (0.0-3.0); HEMATOCRIT 44.4 % (42.0-52.0); HEMOGLOBIN 14.5 g/dl (13.5-17.5); LYMPH # 0.9 10^3/uL (1.5-5.0); LYMPH % 14.4 % (24.0-44.0); MEAN CORPUSCULAR HEMOGLOBIN 30.3 pg (27.0-33.0); MEAN CORPUSCULAR HGB CONC 32.7 g/dl (32.0-36.5); MEAN CORPUSCULAR VOLUME 92.7 fl (80.0-96.0); MONO # 0.7 10^3/uL (0.0-0.8); MONO % 12.5 % (2.0-8.0); NEUTROPHILS # 4.1 10^3/uL (1.5-8.5); NEUTROPHILS % 69.5 % (36.0-66.0); PLATELET COUNT, AUTOMATED 151 10^3/uL (150-450); RED BLOOD COUNT 4.79 10^6/uL (4.30-6.10); WHITE BLOOD COUNT 5.9 10^3/uL (4.0-10.0)
[2021-05-05 16:39] LABS: INR 1.32; PROTHROMBIN TIME 16.8 SECONDS (12.7-14.5)
[2021-05-05 16:40] LABS: PARTIAL THROMBOPLASTIN TIME 42.5 SECONDS (25.9-37.0)
[2021-05-05 16:42] LABS: D-DIMER QUANT 667.3 ng/ml (<500)
[2021-05-05 16:51] LABS: ALBUMIN 3.8 GM/DL (3.2-5.2); ALT/SGPT 137 U/L (12-78); BILIRUBIN,TOTAL 0.5 MG/DL (0.2-1.0); BLOOD UREA NITROGEN 8 MG/DL (7-18); C REACTIVE PROTEIN QUANTITATIV 1.91 MG/DL (0.00-0.30); CALCIUM LEVEL 8.8 MG/DL (8.5-10.1); CARBON DIOXIDE LEVEL 32 MEQ/L (21-32); CHLORIDE LEVEL 101 MEQ/L (98-107); CREATININE FOR GFR 1.08 MG/DL (0.70-1.30); GLOMERULAR FILTRATION RATE > 60.0 (>60); GLUCOSE, FASTING 68 MG/DL (70-100); MAGNESIUM LEVEL 2.2 MG/DL (1.8-2.4); POTASSIUM SERUM 3.9 MEQ/L (3.5-5.1); SODIUM LEVEL 138 MEQ/L (136-145); TOTAL PROTEIN 7.2 GM/DL (6.4-8.2)
[2021-05-05 16:52] LABS: CK-MB VALUE MASS < 1.0 NG/ML (<3.6); CPK CREATINE PHOSPHOKINASE 804 U/L (39-308); MB/CK RELATIVE INDEX 0.12 (< OR =4)
--- OUTSIDE RECORDS SUMMARY | 2021-05-05 16:54 | CCD ---
Author Author [facility] Organization [facility] Address Unknown Phone Unavailable Care Team Providers Care Supervisor Fiber Locking Name Role Phone Deny, L Olimpia PA [...] Deny, L Olimpia PA Unavailable Unavailable UNKNOWN, [facility] ELIZABETH Unavailable Unavailable Rodney Candelario MD Unavailable [...] L OFELIA PA Unavailable Unavailable BRANDON, L FOELIA PA Unavailable Unavailable BRANDON, L OFELIA PA [...] Peck PA-C Unavailable Unavailable ZABOROWSKI, J SUBHA VISUAL EDUCATION TEACHER Unavailable Unavailable ZABOROWSKI, J SUBHA VISUAL EDUCATION TEACHER Unavailable Unavailable ZABOROWSKI, J SUBHA VISUAL EDUCATION TEACHER Unavailable Unavailable ZABOROWSKI, J SUBHA VISUAL EDUCATION TEACHER Unavailable Unavailable ZABOROWSKI, J SUBHA VISUAL EDUCATION TEACHER Unavailable Unavailable ZABOROWSKI, J SUBHA VISUAL EDUCATION TEACHER Unavailable Unavailable ZABOROWSKI, J SUBHA VISUAL EDUCATION TEACHER Unavailable Unavailable ZABOROWSKI, J SUBHA VISUAL EDUCATION TEACHER Unavailable Unavailable ZABOROWSKI, J SUBHA VISUAL EDUCATION TEACHER Unavailable Unavailable ZABOROWSKI, J SUBHA VISUAL EDUCATION TEACHER Unavailable Unavailable ZABOROWSKI, J SUBHA VISUAL EDUCATION TEACHER Unavailable Unavailable ZABOROWSKI, J SUBHA VISUAL EDUCATION TEACHER Unavailable Unavailable ZABOROWSKI, J SUBHA VISUAL EDUCATION TEACHER Unavailable Unavailable ZABOROWSKI, J SUBHA VISUAL EDUCATION TEACHER Unavailable Unavailable ZABOROWSKI, J SUBHA VISUAL EDUCATION TEACHER Unavailable Unavailable ZABOROWSKI, J SUBHA VISUAL EDUCATION TEACHER Unavailable Unavailable ZABOROWSKI, J SUBHA VISUAL EDUCATION TEACHER Unavailable Unavailable ZABOROWSKI, J SUBHA VISUAL EDUCATION TEACHER Unavailable Unavailable ZABOROWSKI, J SUBHA VISUAL EDUCATION TEACHER Unavailable Unavailable ZABOROWSKI, J SUBHA VISUAL EDUCATION TEACHER Unavailable Unavailable ZABOROWSKI, J SUBHA VISUAL EDUCATION TEACHER Unavailable Unavailable ZABOROWSKI, J SUBHA VISUAL EDUCATION TEACHER Unavailable Unavailable ZABOROWSKI, J SUBHA VISUAL EDUCATION TEACHER Unavailable Unavailable ZABOROWSKI, J SUBHA VISUAL EDUCATION TEACHER Unavailable Unavailable ZABOROWSKI, J SUBHA VISUAL EDUCATION TEACHER Unavailable Unavailable ZABOROWSKI, J SUBHA VISUAL EDUCATION TEACHER Unavailable Unavailable ZABOROWSKI, J SUBHA VISUAL EDUCATION TEACHER Unavailable Unavailable ZABOROWSKI, J SUBHA VISUAL EDUCATION TEACHER Unavailable Unavailable ZABOROWSKI, J SUBHA VISUAL EDUCATION TEACHER Unavailable Unavailable ZABOROWSKI, J SUBHA VISUAL EDUCATION TEACHER Unavailable Unavailable ZABOROWSKI, J SUBHA VISUAL EDUCATION TEACHER Unavailable Unavailable ZABOROWSKI, J SUBHA VISUAL EDUCATION TEACHER Unavailable Unavailable ZABOROWSKI, J SUBHA VISUAL EDUCATION TEACHER Unavailable Unavailable ZABOROWSKI, J SUBHA VISUAL EDUCATION TEACHER Unavailable Unavailable ZABOROWSKI, J SUBHA VISUAL EDUCATION TEACHER Unavailable Unavailable ZABOROWSKI, J SUBHA VISUAL EDUCATION TEACHER Unavailable Unavailable ZABOROWSKI, J SUBHA VISUAL EDUCATION TEACHER Unavailable Unavailable ZABOROWSKI, J SUBHA VISUAL EDUCATION TEACHER Unavailable Unavailable ZABOROWSKI, J SUBHA VISUAL EDUCATION TEACHER Unavailable Unavailable ZABOROWSKI, J SUBHA VISUAL EDUCATION TEACHER Unavailable Unavailable ZABOROWSKI, J SUBHA VISUAL EDUCATION TEACHER Unavailable Unavailable ZABOROWSKI, J SUBHA VISUAL EDUCATION TEACHER Unavailable Unavailable ZABOROWSKI, J SUBHA VISUAL EDUCATION TEACHER Unavailable Unavailable ZABOROWSKI, J SUBHA VISUAL EDUCATION TEACHER Unavailable Unavailable ZABOROWSKI, J SUBHA VISUAL EDUCATION TEACHER Unavailable Unavailable ZABOROWSKI, J SUBHA VISUAL EDUCATION TEACHER Unavailable Unavailable ZABOROWSKI, J SUBHA VISUAL EDUCATION TEACHER Unavailable Unavailable ZABOROWSKI, J SUBHA VISUAL EDUCATION TEACHER Unavailable Unavailable ZABOROWSKI, J SUBHA VISUAL EDUCATION TEACHER Unavailable Unavailable Al Mudamgha, A Ward ULLOA [...] A Ali MD Unavailable Unavailable Georgette, Itzel VISUAL EDUCATION TEACHER Unavailable Unavailable Georgette, Itzel VISUAL EDUCATION TEACHER Unavailable Unavailable Georgette, Itzel VISUAL EDUCATION TEACHER Unavailable Unavailable Georgette, Itzel VISUAL EDUCATION TEACHER Unavailable Unavailable Georgette, Itzel VISUAL EDUCATION TEACHER Unavailable Unavailable Georgette, Itzel VISUAL EDUCATION TEACHER Unavailable Unavailable Georgette, Itzel VISUAL EDUCATION TEACHER Unavailable Unavailable Georgette, Itzel VISUAL EDUCATION TEACHER Unavailable Unavailable CHANLIECCO, C GIORGI MD Unavailable [...] by Article 27-F of the [facility] Public Health law. If you continue you may have access to information: Regarding HIV / AIDS; Provided by facilities licensed or operated by the [facility] Office of Mental Health; or Provided by the [facility] Office for People With Developmental Disabilities. If such information is present, then the following [facility] mandated warning applies: This information [...] law may result in a fine or senior care sentence or both. A general authorization for the release of medical or other information is NOT sufficient authorization for further disc losure. Allergies and Adverse Reactions Type Description Substance Reaction Status Data Source(s ) Propensity to adverse reactions AVOCADO avocado allergen ic extract Anaphylaxis High Active [facility] High Propensity to adverse reactions ALMOND MEAL Astatula Meal Anaphylax is High Active [facility] High Family History Family Member Name Family Member Gender Family Member Status Date o f Status Description Data Source(s) Unknown Male Problem [facility] ([facility] Encounters Encounter Providers Location Date Indications Data Source(s ) Outpatient Attender: OFELIA STEINBERG Main Office 03/25/2021 0 3:00:00 PM EDT [facility] ([facility]) Outpatient Attender: Ward Holt MD BF-BF 03/03/2021 12:00:0 0 AM EDT [facility] Emergency Attender: Rodney Candelario MDConsultant: ELIZABETH WATSON 02/23/2021 08:45:00 AM EDT - 02/23/2021 09:55:00 AM EDT [facility] ital Patient discharged. Outpatient Attender: Ward Holt MD BF-BF.[facility] 02/17/2021 07:55:5 7 AM EDT [facility] Outpatient Attender: Scooter Estrella MD Physical Therapy 01/18/2021 0 9:15:00 AM [facility] Emergency Attender: Rodney Candelario MD 01/17/2021 02:19:00 PM EDT - 01/17/2021 06:26:00 PM EDT [facility] Patient discharged. Emergency Attender: GIORGI MENJIVAR MD 01/12/2021 11:26:00 AM EDT - 01/12/2021 12:47:00 PM EDT [facility] Patient discharged. Outpatient BF[facility]BF.[facility] 12/23/2020 12:00:00 AM EDT [facility] Outpatient Attender: Joy Peck PA-C BF-BF.[facility] 12:00:00 AM EDT - 12/10/2020 12:14:04 PM EDT [facility] Outpatient Attender: Ward Holt MD Admitter: Wrad Holt MDReferrer: Itzel Palomino VISUAL EDUCATION TEACHER ES1-SJ.[facility] 11/19/2020 10:35:00 AM EDT - 11/19/2020 04:00:00 PM EDT [facility] Patient discharged. Outpatient Attender: Ward Holt MDReferrer: Ward Cisse MD MOB-MOB.PAT 11/16/2020 08:33:23 AM EDT - 11/16/2020 09:11:20 AM EDT [facility] Outpatient Referrer: Ward Holt MD MOB-MOB.PAT 11/16/2020 1 2:00:00 AM EDT [facility] Outpatient [id number] 10/30/2020 08:14:38 AM EDT [facility] Outpatient [id number] 10/21/2020 03:27:49 PM EDT [facility] Outpatient [id number] 10/16/2020 03:52:09 PM EDT [facility] Outpatient Attender: Ward Holt MD BF[facility]BF.[facility] 09/23/2020 07:57:5 3 AM EDT [facility] Outpatient [id number] 09/17/2020 03:27:44 PM EDT [facility] Outpatient [id number] 09/01/2020 01:54:08 PM EDT [facility] Outpatient Attender: OFELIA STEINBERG Main Office 08/11/2020 1 1:45:00 AM EST [facility] ([facility]) Outpatient Attender: OFELIA STEINBERG Main Office 08/03/2020 0 9:15:00 AM EST [facility] ([facility]) Outpatient Attender: Ward Holt MD BF-BF.[facility] 06/24/2020 12:00:0 0 AM EST [facility] Outpatient Attender: OFELIA STEINBERG Main Office 06/15/2020 0 8:15:00 AM EST [facility] ([facility]) Outpatient BF-[facility] 04/30/2020 12:00:00 AM EST [facility] Outpatient Attender: SUBHA BLAND NP BF-BF 04/02/2020 12:00:0 0 AM EDT [facility] Outpatient Attender: Ward Holt MDAdmitter: Ward Cisse MD ES1-SJ.[facility] 03/20/2020 07:56:00 AM EDT - 03/20/2020 01:57:00 PM EDT [facility] Patient discharged. Outpatient Attender: Olimpia STEINBERG Main Office 03/16/2020 09:15:0 0 AM EDT [facility] ([facility]) Outpatient Referrer: Ward Holt MD MOB-MOB.PAT 09/2019 11:08:31 AM EDT - 03/15/2020 11:08:36 AM EDT [facility] Outpatient Referrer: Ward Holt MD 03/13/2020 09:52:[address] [facility] Outpatient Attender: Ward Holt MDReferrer: Ward Cisse MD MOB-MOB.PAT 03/13/2020 08:53:42 AM EDT - 03/13/2020 09:53:39 AM EDT [facility] BF-BF 03/09/2020 02:03:44 PM EDT [facility] Immunizations Vaccine Date Status Description Data Source(s) 10/27/2020 12:00:00 AM EDT completed <td I D="[id number]">Covid-19 (Pfizer)</td><td>10/27/2020, 08/25/2020</td><td></td> [facility] COVID-19 VACCINE Pfizer 10/27/2020 12:00:00 AM EDT completed [facility] Vaccine Series Complete: YESThis Data wa s Submitted to [facility] Via [employer]. 208 08/25/2020 12:00:00 AM EDT completed <td I D="[id number]">Covid-19 (Pfizer)</td><td>10/27/2020, 08/25/2020</td><td></td> [facility] COVID-19 VACCINE Pfizer 08/25/2020 12:00:00 AM EDT completed [facility] Vaccine Series Complete: YESThis Data wa s Submitted to [facility] Via [employer]. Medications Medication Brand Name Start Date Product Form Dose Route Admi nistrative Instructions Pharmacy Instructions Status Indications Reaction Description Data Source(s) gabapentin 300 MG Oral Capsule Gabapentin 04/14/2021 12:00:00 AM EDT ORAL active [facility] ([facility]) Mirtazapine 7.5 MG Oral Tablet Mirtazapine 04/14/2021 12:00:00 AM EDT ORAL active [facility] ([facility]) Omeprazole 20 MG Delayed Release Oral Capsule Omeprazole 03/24/2021 12:00:00 AM EDT ORAL completed [facility] ([facility]) duloxetine 30 MG Delayed Release Oral Capsule [Cymbalta] Cym bishop 03/24/2021 12:00:00 AM EDT ORAL active M [facility] ([facility]) gabapentin 600 MG Oral Tablet Gabapentin 03/24/2021 12:00:00 AM EDT ORAL completed [facility] ([facility]) Flecainide Acetate 50 MG Oral Tablet flecainide (TAMBO COR) 50 MG tablet flecainide (TAMBOCOR) 50 MG tablet 03/03/2021 12:00:00 AM EDT 50 mg Oral active Take 1 tablet (50 mg total) by m outh 2 (two) times a day [facility] 8 HR Acetaminophen 650 MG Extended Release Oral Tablet [Tyle nol] Tylenol 8 Hour 02/01/2021 12:00:00 AM EDT active [facility] ([facility]) 24 HR metoprolol succinate 200 MG Extended Release Ora l Tablet Metoprolol Succinate ER 01/21/2021 12:00:00 AM EDT ORAL completed [facility] ([facility]) rivaroxaban 20 MG Oral Tablet rivaroxaban (Xarelto) 20 MG TABS rivaroxaban (Xarelto) 20 MG TABS 12/23/2020 12:00:00 AM EDT 20 mg Oral active Take 1 tablet (20 mg total) by mouth daily [facility] normal saline flush 0.9 % injection 3 mL [id number] 11/19/2020 02:00:00 PM EDT 3 mL Intravenous active 3 mL , Intravenous, Every 8 hours (scheduled), First dose on Kendra 11/19/20 at 1400, PACU (only)
flush per protocol, D/C Main IV fluid if appropriate
[facility] Medication administered onsite normal saline flush 0.9 % injection 3 mL [id number] 11/19/2020 02:00:00 PM EDT 3 mL Intravenous active 3 mL , Intravenous, Every 8 hours (scheduled), First dose on Kendra 11/19/20 at 1400, Pre-op
Rapid push positive pressure flushing shall be performed with a 10 cc normal saline syringe to check the PATENCY of a PIV site prior to any infusion therapy initiation unless resistance is met.
[facility] Medication administered onsite normal saline flush 0.9 % injection 3 mL [id number] 11/19/2020 02:00:00 PM EDT 3 mL Intravenous active 3 mL , Intravenous, Every 8 hours (scheduled), First dose on Kendra 11/19/20 at 1400, Pre-op
Rapid push positive pressure flushing shall be performed with a 10 cc normal saline syringe to check the PATENCY of a PIV site prior to any infusion therapy initiation unless resistance is met.
[facility] Medication administered onsite 1 ML Ketorolac Tromethamine 30 MG/ML Car tridge ketorolac (TORADOL) injection 30 mg ketorolac (TORADOL) injection 30 mg 11/19/2020 01:46:43 PM EDT 30 mg Intravenous completed 30 mg, Intrav enous, Once as needed, severe pain (7-10), Starting on Kendra 11/19/20 at 1346, For 1 dose [facility] Medication administered onsite HYDROmorphone (DILAUDID) injection 0.5 mg [id number] 11/19/2020 01:20:51 PM EDT 0.5 mg Intravenous active 0.5 mg, Intravenous, Every 5 min PRN, severe pain (7-10), Starting on Kendra 11/19/20 at 1320, For 5 doses, PACU (only) [facility] Medication administered onsite ondansetron (ZOFRAN) injection 4 mg [id number] 11/19/2020 01:20:5 1 PM EDT 4 mg Intravenous completed 4 mg, In travenous, Once as needed, nausea, vomiting, Starting on Kendra 11/19/20 at 1320, For 1 dose, PACU (only)
If not given in last 4 hours
[facility] Medication administered onsite Albuterol 0.833 MG/ML / Ipratropium Brom maxine 0.167 MG/ML Inhalant Solution ipratropium-albuterol (DUO-NEB) 0.5-2.5 mg/mL nebulizer solution 3 mL ipratropium-albuterol (DUO-NEB) 0.5-2.5 mg/mL nebulizer solution 3 mL 11/19/2020 01:20:51 PM EDT 3 mL Inhalation active 3 mL, Inhalation, Once as needed, shortness of breath, Starting on Kendra 11/19/20 at 1320, For 1 dose, PACU (only) [facility] Medication administered onsite fentaNYL Citrate (PF) (SUBLIMAZE) injection 25 mcg [id number] 11/19/2020 01:20:51 PM EDT 25 ug Intravenous active 25 mcg, Intravenous, Every 5 min PRN, moderate pain (4 to 6), Starting on Kendra 11/19/20 at 1320, For 5 doses, PACU (only) [facility] Medication administered onsite 10 ML Atropine [...] or 0.04 mg/kg. Max of 6 doses
[facility] Medication administered onsite protamine injection [id number] 11/19/2020 12:33:22 PM EDT active As needed, Starting on Kendra 11/19/20 at 1233, Intra-Proc edure [facility] Medication administered onsite 1 ML heparin sodium, porcine 1000 UNT/ML Injection hep mikael (porcine) injection heparin (porcine) injection 11/19/2020 12:01:54 PM EDT active As needed, Starting on Kendra 11/19/20 at 1201, Intra-Procedure [facility] Medication administered onsite lidocaine (PF) (XYLOCAINE-MPF) 1 % injection [id number] 03/2021 11:55:13 AM EDT active As needed, Start ing on Kendra 11/19/20 at 1155, Intra-Procedure [facility] Medication administered onsite 24 HR metoprolol succinate 100 MG Extended Release Ora l Tablet Metoprolol Succinate ER 08/28/2020 12:00:00 AM EDT ORAL completed [facility] ([facility]) Omeprazole 20 MG Delayed Release Oral Capsule Omeprazole 08/03/2020 12:00:00 AM EST ORAL active [facility] Metoprolol Tartrate 50 MG Oral Tablet Metoprolol Tartrate 12:00:00 AM EST ORAL completed [facility] ([facility]) rivaroxaban 20 MG Oral Tablet [Xarelto] Xarelto 06/14/2020 12:00:0 0 AM EST ORAL active [facility] ([facility] rivaroxaban 20 MG Oral Tablet rivaroxaban (XARELTO) 20 MG TABS rivaroxaban (XARELTO) 20 MG TABS 03/24/2020 12:00:00 AM EDT 20 mg Oral active Take 1 tablet (20 mg total) by mouth daily To start after procedure --discharge nurse to inform when to start. [facility] Insurance Providers Payer name Policy type / Coverage type Policy ID Covered green party ID Covered green party's relationship to lópez Policy López Plan Information [id number] [phone] [id number] Ashley [id number] Ashley [id number] Ashley [id number] INSURANCE COVID-19 COVID Ashley C OVID INSURANCE COVID-19 [id number] [facility] [place] [place] [id number] Self [id number] [facility] - O/P [id number] 18 [id number] [facility] PHYSICIAN [id number] 18 [id number] [facility] ACTIVE DUTY [id number] SP [id number] [facility] ([facility] [place] [id number] Self [id number] [facility] [id number] SP [id number] Problems, Conditions, and Diagnoses Code Display Name Description Problem Type Effective Dates Data Source(s) Z7901 retirement (current) use of anticoagulant s retirement (current) use of anticoagulants Diagnosis 02/23/2021 08:45:00 AM EDT [facility] [id number] Nicotine dependence, cigarettes, uncompl icated Nicotine dependence, cigarettes, uncomplicated Diagnosis 02/23/2021 08:45:00 AM EDT [facility] R9431 Abnormal electrocardiogram [ECG] [EKG] A bnormal electrocardiogram [ECG] [EKG] Diagnosis 02/23/2021 08:45:00 AM T [facility] R002 Palpitations Palpitations Diagnosis 02/23/2021 08:45:00 A M EDT [facility] M5442 Lumbago with sciatica, left side Lumbago with sc iatica, left side Diagnosis [facility] Low back pain Low back pain Diagnosis 02/23/2021 08:45:00 AM [facility] [id number] Unspecified place in unspeci fied non-institutional (private) residence as the place of occurrence of the external cause Unspecified place in unspecified non-institutional (private) residence as the place of occurrence of the external cause Diagnosis 01/17/2021 02:19:00 PM EDT [facility] [id number] Fall (on) (from) unspecified stairs and steps, initial encounter Fall (on) (from) unspecified stairs and steps, initial encounter Diagnosis 01/17/2021 02:19:00 PM EDT [facility] M5416 Radiculopathy, lumbar region Radiculopathy, lumbar reg ion Diagnosis 01/17/2021 02:19:00 PM EDT [facility] [id number] Personal history of nicotine dependence Personal history of nicotine dependence Diagnosis 01/12/2021 11:26:00 AM EDT [facility] G8929 Other chronic pain Other chronic pain Diagnosis 08/2020 11:26:00 AM EDT [facility] I48.91 Unspecified atrial fibrillation Unspecified atri al fibrillation Diagnosis 12/23/2020 03:35:03 PM EDT [facility] I48.0 Paroxysmal atrial fibrillation Paroxysmal atrial fibri llation Diagnosis 12/10/2020 11:07:56 AM EDT [facility] U07.1 COVID-19 COVID-19 Diagnosis 11/16/2020 12:00:00 AM ED T [facility] [id number] Lumbosacral radiculopathy Lumbosacral radiculopathy Pr oblem 02/01/2021 12:00:00 AM EDT [facility] ([facility]) [id number] Chronic low back pain Chronic low back pain Problem 02/01/2021 12:00:00 AM EDT [facility] ([facility]) I48.91 Atrial fibrillation Atrial fibrillation [id number] 09/29/2020 12:00:00 AM EDT [facility] R06.02 Dyspnea Dyspnea Problem 08/03/2020 12:00:00 AM ES Vishnu MANCUSO ([facility]) R55 Syncope and collapse Syncope and collapse Problem 06/15/2020 12:00:00 AM EST [facility] ([facility]) R07.2 Precordial pain Precordial pain Problem 06/15/2020 12:0 0:00 AM EST [facility] ([facility]) Surgeries/Procedures Procedure Description Date Indications Data Source(s) Implantable Loop Recorder System, Review And Report 04/15/2021 12:00:00 AM EDT [facility] ([facility]) ECG ROUTINE ECG W/LEAST 12 LDS W/I&R 03/25/2021 12:00: 00 AM EDT [facility] ([facility]) OFFICE OUTPATIENT VISIT 25 MINUTES 03/25/2021 12:00:00 AM EDT [facility] ([facility]) Implantable Loop Recorder System, Review And Report 03/12/2021 12:00:00 AM EDT [facility] ([facility]) Implantable Loop Recorder System, Review And Report 02/08/2021 12:00:00 AM EDT [facility] ([facility]) Needle electromyography, each extremity, with related paraspinal areas, when performed, done with nerve conduction, amplitude and latency/velocity study; complete, five or more muscles studied, innervated by three or more nerves or four or more spinal levels (list separately in addition to the code for primary procedure). 02/03/2021 12:00:00 AM EDT [facility] T ([facility] ) Needle electromyography, each extremity, with related paraspinal areas, when performed, done with nerve conduction, amplitude and latency/velocity study; complete, five or more muscles studied, innervated by three or more nerves or four or more spinal levels (list separately in addition to the code for primary procedure). 02/03/2021 12:00:00 AM EDT [facility] T ([facility], ) 73273 Nerve conduction studies 13 or more studies NEW 201202/03/2021 12:00:00 AM EDT [facility] ([facility] ) X-Ray Spine Lumbosacral Bending Only 2 Or 3 Views 01/18/2021 12:00:00 AM EDT [facility] ([facility] ) OFFICE OUTPATIENT NEW 45 MINUTES 01/18/2021 12:00:00 A M EDT [facility] ([facility]) Implantable Loop Recorder System, Review And Report 01/06/2021 12:00:00 AM EDT [facility] ([facility] Implantable Loop Recorder System, Review And Report 12/03/2020 12:00:00 AM EDT [facility] ([facility]) EP STUDY <td>EP STUDY</td><td>Routine </td><td>11/19/2020 12:32 PM EDT</td><td> Atrial fibrillation, unspecified type</td><td></td> 11/19/2020 12:32:27 PM EDT Atrial fibrillation, unspecified type [facility] Atrial fibrillation, unspecified type ECG ROUTINE ECG W/LEAST 12 LDS TRCG ONLY W/O I&R <td>E CG 12- LEAD</td><td>Routine</td><td>11/16/2020 9:11 AM EDT</td><td> Atrial fibrillation, unspecified type</td><td></td> 11/16/2020 09:11:02 AM EDT Atrial fibrillation, unspecified type [facility] Atrial fibrillation, unspecified type BLOOD COUNT COMPLETE AUTOMATED <td>CBC</td><td>Routine </td><td>11/16/2020 9:10 AM EDT</td><td> Atrial fibrillation, unspecified type</td><td> </td> 11/16/2020 09:10:00 AM EDT Atrial fibrillation, unspecified type [facility] Atrial fibrillation, unspecified type BLOOD TYPING ABO <td>TYPE AND SCREEN</td><td> Routine</td><td>11/16/2020 9:10 AM EDT</td><td> Atrial fibrillation, unspecified type</td><td> </td> 11/16/2020 09:10:00 AM EDT Atrial fibrillation, unspecified type [facility] Atrial fibrillation, unspecified type BASIC METABOLIC PANEL CALCIUM TOTAL <td>BASIC METABOLI C PANEL</td><td>Routine</td><td>11/16/2020 9:10 AM EDT</td><td> Atrial fibrillation, unspecified type</td><td> </td> 11/16/2020 09:10:00 AM EDT Atrial fibrillation, unspecified type [facility] Atrial fibrillation, unspecified type Implantable Loop Recorder System, Review And Report 10/27/2020 12:00:00 AM EDT [facility] ([facility]) Implantable Loop Recorder System, Review And Report 09/24/2020 12:00:00 AM EDT [facility] ([facility]) OFFICE OUTPATIENT VISIT 15 MINUTES 08/11/2020 12:00:00 AM EST [facility] ([facility]) OFFICE OUTPATIENT VISIT 15 MINUTES 08/03/2020 12:00:00 AM EST [facility] ([facility]) XTRNL ECG < 48 HR RECORDING 07/20/2020 12:00:00 AM EST [facility] ([facility]) XTRNL ECG CONTINUOUS RHYTHM PHYS REVIEW&INTERPJ 2020 12:00:00 AM EST [facility] ([facility]) ECHO TTHRC R-T 2D W/WOM-MODE COMPL SPEC&COLR DOP 07/16 12:00:00 AM EST [facility] ([facility]) CV STRS TST XERS&/OR RX CONT ECG PHYS SI&R 07/09/2020 12:00:00 AM EST [facility] ([facility]) ECG ROUTINE ECG W/LEAST 12 LDS W/I&R 06/15/2020 12:00: 00 AM EST [facility] ([facility]) OFFICE OUTPATIENT VISIT 25 MINUTES 06/15/2020 12:00:00 AM EST [facility] ([facility]) ECG ROUTINE ECG W/LEAST 12 LDS W/I&R 03/16/2020 12:00: 00 AM EDT [facility] ([facility]) Results ID Date Data Source [id number] 04/25/2021 09:07:00 AM EST [facility] ([facility]) Name Value Range Interpretation Code Description Data Sera rce(s) Supporting Document(s) White Blood Count 7.2 5.0-10.0 [facility] ([facility]) Red Blood Count 4.91 4.00-5.40 [facility] ([facility]) Platelets 154 172-450 [facility] Hemoglobin 14.8 [facility] ([facility]) Hematocrit 45.4 [facility] ([facility]) ID Date Data Source [id number] 04/25/2021 09:07:00 AM EST [facility] Name Value Range Interpretation Code Description Data Sera rce(s) Supporting Document(s) Calcium [Mass/volume] in Serum or Plasma 4.6 [facility] ([facility]) Sodium 139 [facility] ([facility]iology [facility]) Carbon dioxide, total [Moles/volume] in Serum or Plasma 27.0 [facility] ([facility]) Chloride [Moles/volume] in Serum or Plasma 99 [facility] ([facility]) Potassium [Moles/volume] in Serum or Plasma 3.7 [facility] ([facility]) Glucose 128 83-110 [facility] ([facility]) Blood Urea Nitrogen 11 7-18 [facility] (Ca [facility]diology [facility]) Creatinine 0.9 0.6-1.0 [facility] ([facility]) Glomerular filtration rate/1.73 sq M.pre dicted [Volume Rate/Area] in Serum or Plasma by Creatinine-based formula (MDRD) Laboratory test result [facility] ([facility]) ID Date Data Source [id number] 04/22/2021 02:02:00 PM EST [facility] Name Value Range Interpretation Code Description Data Sera rce(s) Supporting Document(s) SARS coronavirus 2 RNA [Presence] in Res piratory specimen by MYAH with probe detection NEGATIVE [facility] This lab was ordered by [facility] a nd reported by [facility]. ID Date Data Source [id number] 04/19/2021 02:08:00 PM EST [facility]) Name Value Range Interpretation Code Description Data Sera rce(s) Supporting Document(s) Natriuretic peptide.B prohormone N-Terminal [Mass/volu me] in Serum or Plasma 12 [facility] ([facility] Thyroid Stimulating Hormone 0.680 [facility] ([facility]) Free T4 0.74 [facility] ([facility]) C reactive protein [Mass/volume] in Serum or Plasma 0.30 [facility] ([facility]) ID Date Data Source [id number] 04/19/2021 02:08:00 PM EST [facility] ([facility]i [facility]) Name Value Range Interpretation Code Description Data Sera rce(s) Supporting Document(s) Glucose 105 [facility] ([facility] Blood Urea Nitrogen 15 [facility] (Ca [facility]) Creatinine 0.90 [facility] ([facility]) Sodium 141 [facility] Potassium 3.7 [facility] Chloride 106 [facility] Carbon Dioxide 31 [facility] ([facility]iol [facility]) Calcium 8.8 [facility]) Glomerular filtration rate/1.73 sq M.pre dicted [Volume Rate/Area] in Serum or Plasma by Creatinine-based formula (MDRD) Laboratory test result [facility] ([facility]) ID Date Data Source [id number] 04/19/2021 02:08:00 PM EST [facility] Name Value Range Interpretation Code Description Data Sera rce(s) Supporting Document(s) Troponin Laboratory test result [facility] ([facility]) ID Date Data Source [id number] 04/19/2021 02:08:00 PM EST [facility]) Name Value Range Interpretation Code Description Data Sera rce(s) Supporting Document(s) Aspartate aminotransferase [Enzymatic activity/volume] in Serum or Plasma 27 [facility] ([facility]) Alanine aminotransferase [Enzymatic activity/volume] in Serum or Pl asma 67 [facility] ([facility]) Alk Phos 72 [facility] ([facility]) Albumin 3.6 [facility] ([facility] Total Bilirubin 0.3 [facility] ([facility]io [facility]) Total Protein 6.9 [facility] ([facility]iolo gy [facility]) A/G Ratio 1.1 [facility] ([facility]) ID Date Data Source [id number] 04/19/2021 02:08:00 PM EST [facility] ([facility]) Name Value Range Interpretation Code Description Data Sera rce(s) Supporting Document(s) Creatine kinase [Enzymatic activity/volume] in Serum or Plasma 555 [facility] ([facility]) CPK-MB 1.7 [facility] ([facility] MB/CK Relative 0.31 [facility] ([facility]iol [facility]) ID Date Data Source [id number] 03/03/2021 12:34:28 PM EDT [facility] INFORMATIONPatient MRN Name Date of Age Gend*PT [id number] Gallito Hinojosa 1995 26 years M ---PT Location Admission Date/Time Visit ID Attending Provider --- --- --- --- EPI ID CSN Admitting Pro vider [id number] ---[facility] [id number] [facility], [address] (First Floor)[place], [place] [address]Qy.: Fax: Katient: Gallito Camargo : 1995Date: 03/03/21CARDIOLOGY TELEMEDICINE VISITPatient was identified by name and date of .Verbal consent was obtained from the patient for this telemedicine visit.Patient is aware of the risks, limitations, and benefits of a telemedicinevisit.This telemedicine assessment was conducted remotely with the assistance of[employer] Interactive communication technology. Telephone Only Codes 16096: 21-30 minutesof medical discussion: Telephone Only .Subjective:Gallito [...] benefitsFollow Up 6 monthsSignature: Ward Durán MD, [facility]ENTERCardiac Electrophysiology and Arrhythmia ServiceDate: March 03, 2021Time: 12:29 PMThis document or parts of this document, were dictated using [employer]. A reasonable attempt at proofreading has been made to minimize errors.Please call with any questions or corrections. Name Value Range Interpretation Code Description Data Sera rce(s) Supporting Document(s) ID Date Data Source [id number] 02/23/2021 08:07:00 PM EDT [address] [address] RESPIRATORY CARE REPORT ==== ---------NAME------- NUMBER SEX AGE ADMIT DISC. XRAY# F/C SAM Orta [id number] M 26 02/23/21 02/23/21 [id number] SB4 E/R DATE OF : 1995 M/R# [id number] #: [phone] VT-04 LOCATION: EMERGENCY DEPT EKG [id number] COMPLE TE:02/23/21 15:13 [place] [id number] PHYSICIAN: ANDREE Gallagher Name Value Range Interpretation Code Description Data Sera rce(s) Supporting Document(s) ID Date Data Source [id number] 02/23/2021 08:45:00 AM EDT [facility] 1 OrderSheet [facility] Emergency Department [address] [place] [address] Phone #: ext- [phone] 02/23/2021 08:44 Patient: GALLITO HERNANDEZ Sex: M : 1995 Age: 26yWEIGHT:73.4 kg (S) HEIGHT:67 inches (S) BMI:25.4ALLERGIES: Astatula (Diagnostic), Avocado (Diagnostic)CHIEF COMPLAINT: back pain, chronic [...] rce(s) Supporting Document(s) ID Date Data Source [id number] 02/23/2021 08:45:00 AM EDT [facility] 1 Medication Reconciliation Report [facility] Emergency Department [address] [place] [address] Phone #: ext- [phone] 02/23/2021 08:44 Patient: GALLITO HERNANDEZ Sex: M : 1995 Age: 26yWeight: 73.4 kgHeight/Length: 67 in.BMI: 25.4ALLERGIES: Astatula (Diagnostic), Avocado (Diagnostic)The patient's Home Medications are [...] rce(s) Supporting Document(s) ID Date Data Source [id number] 02/23/2021 08:45:00 AM EDT [facility] 1 Medication Administration Record [facility] Emergency Department [address] [place] [address] Phone #: ext- [phone] 02/23/2021 08:44 Patient: GALLITO HERNANDEZ Sex: M : 1995 Age: 26yWeight: 73.4 kgHeight/Length: 67 inBMI: 25.4ALLERGIES: Astatula (Diagnostic), Avocado (Diagnostic) Date/Time Medication Administered Medication OrderedGiven LIDODERM PATCH (LIDOCAINE) Lidoderm Patch Topical (Patch 509:42 02/23/2021 Dose: 1 patch Ointment Transdermal %) 1 Patch (NOW x1, On for 12Terry LILI Sampson hours, off for 12 hours.)Given MOTRIN [PO] (IBUPROFEN) Motrin 600 mg PO X1 dose: 47163:42 02/23/2021 Dose: 600 mg Tablets PO mg (NOW x1)Hema Sampson RN Name Value Range Interpretation Code Description Data Sera rce(s) Supporting Document(s) ID Date Data Source [id number] 02/23/2021 08:45:00 AM EDT [facility] 1 General Instructions [facility] Emergency Department [address] [place] [address] Phone #: ext- [phone] 02/23/2021 08:44 Patient: [...] verbalized by patient.Follow- up with: [facility], , , [address], , [place], [place], [facility] Follow up in three days if not well. Call for an appointment. Reason for referral: evaluation. ADDITIONAL INFORMATIONSciatica 2 General Instructions [facility] Emergency Department [address] [place] [address] Phone #: ext- [phone] 02/23/2021 08:44 Patient: [...] for yourself at home: 3 General Instructions [facility] Emergency Department [address] [place] [address] Phone #: ext- [phone] 02/23/2021 08:44 Patient: [...] or swelling over your back or spine [phone] [employer]). [address] [place] [address]. All rights reserved. This information is not intended as asubstitute for professional medical care. Always follow your healthcare professional's instructions. 4 General Instructions [facility] Emergency Department [address] [place] [address] Phone #: ext- [phone] 02/23/2021 08:44 Patient: [...] muscle (cardiomyopathy) Coronary artery disease High blood clroebpfNjg-vjeye-kymceon causes: Certain medicines such as asthma inhalers and decongestants Some herbal supplements, energy drinks and pills, and weight loss pills 5 General Instructions [facility] Emergency Department [address] [place] [address] Phone #: ext- [phone] 02/23/2021 08:44 Patient: [...] Tell your doctor about any prescription or vldv-jzz-wblzppj or herbal medicines you take.Follow-up care Follow [...] to seek medical advice 6 General Instructions [facility] Emergency Department [address] [place] [address] Phone #: ext- [phone] 02/23/2021 08:44 Patient: GALLITO HERNANDEZ Sex: M : 1995 Age: 26yCall your healthcare provider right away if you have palpitations that last longer than normal, or aredifferent from your past palpitations. [phone] [employer] ([employer] [address] [place] [address]. All rights reserved. This information is not intended as asubstitute for professional medical care. Always follow your healthcare professional's instructions. You have been given the following additional information: Sciatica Palpitations(Electronically signed by Rodney Candelario 02/23/2021 11:16) Name Value Range Interpretation Code Description Data Sera rce(s) Supporting Document(s) ID Date Data Source [id number] 02/23/2021 08:45:00 AM EDT [facility] 1 Clinical Report - Nurses [facility] Emergency Department [address] [place] [address] Phone #: ext- [phone] 02/23/2021 08:44 Patient: GALLITO HERNANDEZ Sex: M [...] tingling, trouble walking orfever. No extremity pain.Treatment COFFEE WEIGHER:None.SEPSIS SCREEN: SIRS SCREEN NEGATIVE. SEPSIS SCREEN NEGATIVE. [...] RN.AllergiesAlmond (Diagnostic).Avocado (Diagnostic). --09:03 02/23/21 Hema Sampson RN.Feqzgjn04:07 02/23/21.PAST MEDICAL HX: Heart disease.SOCIAL HX: Smoker- current status unknown (1/2 ppd). No alcohol use or drug use. He was offeredHIV testing but declined and hepatitis C testing but declined. He has not traveled outside the [place]Infectious disease exposure: No infectious disease exposure. 2 Clinical Report - Nurses [facility] Emergency Department [address] [place] [address] Phone #: ext- [phone] 02/23/2021 08:44 Patient: [...] To room. --09:07 02/23/21 Hema Sampson RN.PHYSICAL [id number]:02/23/21. Ambulatory to room.GENERAL / NEURO / PSYCH: [...] Sampson RN 3 Clinical Report - Nurses [facility] Emergency Department [address] [place] [address] Phone #: ext- [phone] 02/23/2021 08:44 Patient: [...] F. Pain level now 02/19. --09:45 02/23/21 [facility] Tech1 09:55 02/23/21. Departure time: 09:55 02/23/2021. Condition at departure: unchanged. No learning barriers present. Discharge instructions provided and reviewed with the patient. Reviewed medication(s) (no changes). Reviewed rest and ice instructions. Reviewed referrals. Provided to follow-up provider. Patient verbalized understanding. Written instructions provided in Israeli. The patient was discharged by the physician. He was discharged home. He left ambulatory and via private vehicle. Patient driving. --09:55 02/23/21 Hema Sampson RN.Locked/Released at 02/23/2021 12:00 by Hema Sampson RN Name Value Range Interpretation Code Description Data Sera rce(s) Supporting Document(s) ID Date Data Source [id number] 02/23/2021 08:45:00 AM EDT [facility] 1 Clinical Report - Physicians/Mid Levels [facility] Emergency Department [address] [place] [address] Phone #: ext- [phone] 02/23/2021 08:44 Patient: [...] Xarelto Oral (Tablet 20 mg), daily. Allergies: Astatula (Diagnostic). 2 Clinical Report - Physicians/Mid Levels [facility] Emergency Department [address] [place] [address] Phone #: ext- [phone] 02/23/2021 08:44 Patient: GALLITO HERNANDEZ Sex: M [...] stable. 3 Clinical Report - Physicians/Mid Levels [facility] Emergency Department [address] [place] [address] Phone #: ext- [phone] 02/23/2021 08:44 Patient: [...] verbalized by patient. Follow-up with: [facility] [place] [facility], , , [address] [facility], , [place], [address] Follow up in three days if not well. Call for an appointment. Reason for referral: evaluation.(Electronically signed by Rodney Candelario 02/23/2021 11:16) Name Value Range Interpretation Code Description Data Sera rce(s) Supporting Document(s) ID Date Data Source [id number] 02/12/2021 12:00:00 AM EDT [facility] Name Value Range Interpretation Code Description Data Sera rce(s) Supporting Document(s) PCR NEGATIVE [facility] This lab was ordered by [facility] are and reported by [facility]. ID Date Data Source [id number] 01/17/2021 06:32:[address] [facility] [address] [place] [address] PHONE: [phone] FAX: [phone] Name .................. : MARY Orta Acct Number.................. : [id number] ROOM. ................. : [facility] MR Number ................... : [id number] Stay type ............. : E/R Discharge Date......... ... : Admit Date ......... : 01/17/21 Admit Phys .................... : ANDREE Gallagher Date of ....... : 1995 Family Phys ................... : UNKNOWN CO Phone .................. : [phone] Age ................................ : 26 Film# .................. .:[id number] Sex ................................. : M Unsigned transcriptions are preliminary reports and do not represent a medical or legal document CT LUMBAR SP W/O CONT [id number] COMPLETE:01/17/21 16:54 [id number] Reason(s): fell down stairs, acute on chronic [...] 01/17/21 18:32, JWS [address] 2 [place] [address] PHONE: [phone] FAX: [phone] Name .................. : MARY Orta Acct Number.................. : [id number] ROOM. ................. : VT-19 Number ................... : [id number] Stay type ............. : E/R Discharge Date......... ... : Admit Date ......... : 01/17/21 Admit Phys .................... : CANDELARIO RODNEY Gallagher Date of ....... : 1995 Family Phys ............ ....... : UNKNOWN CO Phone .................. : [phone] Age ................................ : 26 Film# .................. .:[id number] Sex ................................. : M Unsigned transcriptions are preliminary reports and do not represent a medical or legal document CT LUMBAR SP W/O CONT [id number] COMPLETE:01/17/21 16:54 [id number] Reason(s): fell down stairs, acute on chronic LBP Transcribe Initials: TAWANNA , Transcribe Date: 01/17/21 17:50, Dictation Date: Copy for: BURKE Crandall via fax Copy for: EMERGENCY DEPT via mode Copy for: 710 MED REC DISCHARGED Page 2 of 2 Name Value Range Interpretation Code Description Data Sera rce(s) Supporting Document(s) ID Date Data Source [id number] 01/17/2021 02:19:00 PM EDT [facility] 1 OrderSheet [facility] Emergency Department [address] [place] [address] Phone #: ext- [phone] 01/17/2021 13:55 Patient: GALLITO HERNANDEZ Sex: M : 1995 Age: 26yWEIGHT:73.4 kg (S) HEIGHT:67 inches (S) BMI:25.4ALLERGIES: Astatula (Diagnostic), Avocado (Diagnostic)CHIEF COMPLAINT: fall, -3-, down [...] rce(s) Supporting Document(s) ID Date Data Source [id number] 01/17/2021 02:19:00 PM EDT [facility] 1 Medication Reconciliation Report [facility] Emergency Department [address] [place] [address] Phone #: ext- [phone] 01/17/2021 13:55 Patient: GALLITO HERNANDEZ Sex: M : 1995 Age: 26yWeight: 73.4 kgHeight/Length: 67 in.BMI: 25.4ALLERGIES: Astatula (Diagnostic), Avocado (Diagnostic)The patient's Home Medications are [...] Dispense6 tablet. Refills: 0. Substitution permitted.Pharmacy - [facility] [address] ; [place] [address]. . -- MARYAN Velasco Name Value Range Interpretation Code Description Data Sera rce(s) Supporting Document(s) ID Date Data Source [id number] 01/17/2021 02:19:00 PM EDT [facility] 1 Medication Administration Record [facility] Emergency Department [address] [place] [address] Phone #: ext- [phone] 01/17/2021 13:55 Patient: GALLITO HERNANDEZ Sex: M : 1995 Age: 26yWeight: 73.4 kgHeight/Length: 67 inBMI: 25.4ALLERGIES: Astatula (Diagnostic), Avocado (Diagnostic) Date/Time Medication Administered Medication OrderedGiven MORPHINE [IM] Morphine IM 4 mg (NOW x1, HIGH17:04 01/17/2021 Dose: 4 mg IM ALERT MEDICATION)Hema Sampson RNGiven ZOFRAN ODT [PO] (ONDANSETRON Zofran ODT PO 4 mg (NOW x1)17:05 01/17/2021 HCL)Hema Sampson RN Dose: 4 mg Oral Disintegrating Tablets PO Name Value Range Interpretation Code Description Data Sera rce(s) Supporting Document(s) ID Date Data Source [id number] 01/17/2021 02:19:00 PM EDT [facility] 1 General Instructions [facility] Emergency Department [address] [place] [address] Phone #: ext- [phone] 01/17/2021 13:55 Patient: GALLITO HERNANDEZ Sex: M [...] Dispense6 tablet. Refills: 0. Substitution permitted.Pharmacy - [facility] [address] ; [place] [address]. .Understanding of the discharge instructions verbalize d by patient. Expected course of injury, dischargeinstructions, activity level, prescriptions x1, follow-up appointment and risks and benefits of treatmentreviewed with patient and understanding verbalized. Agrees to plan of care.Follow-up with: [facility] [place] [facility], , , [address] [place] [address], , [place], [address] Follow up in one day even if well. Call for the next available appointment. Reason for referral: evaluationand recommend MRI LS spine and referral to ortho spine . Summary of care provided to patient via paper. ADDITIONAL INFORMATION 2 General Instructions [facility] Emergency Department [address] [place] [address] Phone #: ext- [phone] 01/17/2021 13:55 Patient: [...] howsevere your symptoms are. 3 General Instructions [facility] Emergency Department [address] [place] [address] Phone #: ext- [phone] 01/17/2021 13:55 --- [...] your back or spine 4 General Instructions [facility] Emergency Department [address] [place] [address] Phone #: ext- [phone] 01/17/2021 13:55 Patient: GALLITO HERNANDEZ Sex: M : 1995 Age: 26y [id number] [employer]). [address] [place] [address]. All rights reserved. This information is not [...] provider before using these 5 General Instructions [facility] Emergency Department [address] [place] [address] Phone #: ext- [phone] 01/17/2021 13:55 Patient: GALLITO HERNANDEZ Sex: M [...] the reading, especially if it affects treatment.Call [phone] if any of these happen: 6 General Instructions [facility] Emergency Department [address] [place] [address] Phone #: ext- [phone] 01/17/2021 13:55 Patient: MARY, MARC H Sex: [...] in vomit, stools (black or red color) [phone] [employer]). [address] [place] [address]. All rights reserved. This information is not [...] in poorly lit areas. 7 General Instructions [facility] Emergency Department [address] [place] [address] Phone #: ext- [phone] 01/17/2021 13:55 Patient: [...] sidewalks. If your balance is poor, con sling operator using a cane or walker. If [...] could make you more likely to fall. [id number] [employer] [address] [place] [address]. All rights reserved. This information is not intended as asubstitute for professional medical care. Always follow your healthcare professional's instructions. You have been given the following additional information: Sciatica Mechanical Fall Fall Prevention 8 General Instructions [facility] Emergency Department [address] [place] [address] Phone #: ext- [phone] 01/17/2021 13:55 Patient: GALLITO HERNANDEZ Sex: M : 1995 Age: 26yNo strenuous activity until better.(Electronically signed by MARYAN Velasco 01/17/2021 18:46) Name Value Range Interpretation Code Description Data Sera rce(s) Supporting Document(s) ID Date Data Source [id number] 01/17/2021 02:19:00 PM EDT [facility] 1 Clinical Report - Nurses [facility] Emergency Department [address] [place] [address] Phone #: ext- [phone] 01/17/2021 13:55 Patient: [...] bladder.). The patient has had trouble walking.Treatment COFFEE WEIGHER:Seen within the last 30 days in the [...] Joaquin R.N.AllergiesAvocado (Diagnostic). --14:13 01/17/21 [place] Joaquin R.N.Astatula (Diagnostic). --14:14 01/17/21 [place] Joaquin R.N.PROBLEMS:Depression. --14:15 01/17/21 [place] Joaquin R.N.Back Pain.Atrial Fibrillation. --16:48 01/17/21 MARYAN Velasco 2 Clinical Report - Nurses [facility] Emergency Department [address] [place] [address] Phone #: ext- [phone] 01/17/2021 13:55 Patient: [...] in pain. 3 Clinical Report - Nurses [facility] Emergency Department [address] [place] [address] Phone #: ext- [phone] 01/17/2021 13:55 Patient: [...] RR: 16. O2 saturation: 99%. --17:11 01/17/21 [facility] Patient transported to [place] by wheelchair with mask and limited radiology technician. (1720). --17:31 01/17/21 Hema Sampson RN Patient returned from CT by wheelchair with mask and limited radiology technician. (1731). --17:33 01/17/21 Hema Sampson RN 18:16 01/17/21. BP: 114/83. HR: 84. RR: 16. O2 saturation: 100%. --18:16 01/17/21 [facility] Tech1.DISPOSITION / DISCHARGE 17:49 01/17/21. Departure time: 17:49 01/17/2021. Transferred. Provided to EMS ([facility]). Transported via ambulance by auto inspector. Report was given to a nurse via [...] now /10. 4 Clinical Report - Nurses [facility] Emergency Department [address] [place] [address] Phone #: ext- [phone] 01/17/2021 13:55 Patient: GALLITO HERNANDEZ Sex: M : 1995 Age: 26y --18:18 01/17/21 [facility] Departure time: 18:24 01/17/2021. --18:24 01/17/21 Balbina Ramirez RN Condition at departure: stable. No learning barriers present. Discharge instructions provided and reviewed with the patient. Reviewed medication(s) side effects, precautions, dosing and course information. Prescription(s) sent electronically to pharmacy. Reviewed referral to a primary care physician. Patient verbalized understanding. Written instructions provided in Israeli. 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 He was discharged home and accompanied by spouse. He left ambulatory and via private vehicle. Spouse driving. --18:26 01/17/21 Balbina Ramirez RN.Locked/Released at 01/17/2021 18:26 by Balbina Ramirez RN Name Value Range Interpretation Code Description Data Sera rce(s) Supporting Document(s) ID Date Data Source [id number] 01/17/2021 02:19:00 PM EDT [facility] 1 Clinical Report - Physicians/Mid Levels [facility] Emergency Department [address] [place] [address] Phone #: ext- [phone] 01/17/2021 13:55 Patient: GALLITO HERNANDEZ Sex: M [...] Loop recorder. Medications: 2 Clinical Report - Physicians/[facility] Levels [facility] Emergency Department [address] [place] [address] Phone #: ext- [phone] 01/17/2021 13:55 Patient: GALLITO HERNANDEZ Sex: M : 1995 Age: 26y Metoprolol Succinate ER Oral (Tablet Extended Release 24 Hour 100 mg), daily. Xarelto Oral (Tablet 20 mg), daily. Allergies: Astatula (Diagnostic). Avocado (Diagnostic).SOCIAL HISTORYSmoker- current status unknown. [...] is 3 Clinical Report - Physicians/Mid Levels [facility] Emergency Department [address] [place] [address] Phone #: gse- [phone] 01/17/2021 13:55 Patient: GALLITO HERNANDEZ Sex: M [...] tablet. Refills: 0. Substitution permitted. Pharmacy - [facility] [id number] ; [place] [address]. . Understanding of the discharge instructions verbalized by patient. Expected course of injury, discharge instructions, activity level, prescriptions x1, follow-up appointment and risks and benefits of treatment reviewed with patient and understanding verbalized. Agrees to plan of care. Follow-[facility] with: [facility], , , [address] [place] [address], , [place], [address] Follow up in one day even if well. Call for the next available appointment. Reason for referral: evaluation and recommend MRI LS spine and referral to ortho spine . Summary of care provided to patient via paper. 4 Clinical Report - Physicians/Mid Levels [facility] Emergency Department [address] [place] [address] Phone #: ext- [phone] 01/17/2021 13:55 Patient: GALLITO HERNANDEZ Sex: M : 1995 Age: 26y(Electronically signed by MARYAN Velasco 01/17/2021 18:46) Name Value Range Interpretation Code Description Data Sera rce(s) Supporting Document(s) ID Date Data Source [id number] 01/12/2021 11:26:00 AM EDT [facility] 1 OrderSheet [facility] Emergency Department [address] [place] [address] Phone #: [phone]- [phone] 01/12/2021 11:19 Patient: GALLITO MONTGOMERY Sex: M [...] rce(s) Supporting Document(s) ID Date Data Source [id number] 01/12/2021 11:26:00 AM EDT [facility] 1 Medication Reconciliation Report [facility] Emergency Department [address] [place] [address] Phone #: ext- [phone] 01/12/2021 11:19 Patient: [...] Dispense 30 tablet. Refills:0. Substitution permitted.Pharmacy - [facility] [address] [facility] ; [place] [address]. .prednisone 10 mg tablet Take 4 tablet once a day for 10 days -- x 2 days then 3 tabs daily x 2 daysthen 2 tabs daily x 2 days then 1 tab daily x 2 days. Dispense 30 tablet. Refills: 0. Substitution permitted.Pharmacy - [facility] - [address] [facility] ; [place] [address]. . 2 Medication Reconciliation Report [facility] Emergency Department [address] [place] [address] Phone #: ext- [phone] 01/12/2021 11:19 Patient: GALLITO MONTGOMERY Sex: M : 1995 Age: 26yPercocet 5 mg-325 mg tablet Take 1 tablet four times a day for 3 days -- as needed for pain. [id number] tablet. Refills: 0. Substitution permitted.Pharmacy - [facility] [id number] ; [place] [address]. . -- Giorgi Menjivar Name Value Range Interpretation Code Description Data Sera rce(s) Supporting Document(s) ID Date Data Source [id number] 01/12/2021 11:26:00 AM EDT [facility] 1 Medication Administration Record [facility] Emergency Department [address] [place] [address] Phone #: ext- [phone] 01/12/2021 11:19 Patient: GALLITO MONTGOMERY Sex: M : 1995 Age: 26yWeight: 73.4 kgHeight/Length: 67 inBMI: 25.4ALLERGIES: Avacado, Astatula Date/Time Medication Administered Medication OrderedGiven FLEXERIL [PO] [...] rce(s) Supporting Document(s) ID Date Data Source [id number] 01/12/2021 11:26:00 AM EDT [facility] 1 General Instructions [facility] Emergency Department [address] [place] [address] Phone #: ext- [phone] 01/12/2021 11:19 Patient: GALLITO MONTGOMERY Sex: M [...] Dispense 30 tablet. Refills:0. Substitution permitted.Pharmacy - [facility] - [address] [facility] ; [place] [address]. .prednisone 10 mg tablet Take 4 tablet once a day for 10 days -- x 2 days then 3 tabs daily x 2 daysthen 2 tabs daily x 2 days then 1 tab daily x 2 days. Dispense 30 tablet. Refills: 0. Substitution permitted.Pharmacy - [facility] - [address] [facility] ; [place] [address]. .Percocet 5 mg-325 mg tablet Take 1 tablet four times a day for 3 days -- as needed for pain. [id number] tablet. Refills: 0. Substitution permitted.Pharmacy - [facility] [phone] ; [place] [address]. .Follow-up: Follow up with your healthcare provider in three days if not better. Reason for referral: evaluation.Summary of care provided to patient via paper. Screening today revealed the patient's blood pressure indra in the hypertensive stage 2 range. The patient should follow up with a primary care provider for bloodpressure management. ADDITIONAL INFORMATION 2 General Instructions [facility] Emergency Department [address] [place] [address] Phone #: ext- [phone] 01/12/2021 11:19 Patient: GALLITO MONTGOMERY RN: [id number] Sex: Violeta : 1995 Age: 26ySciaticaSciatica is [...] howsevere your symptoms are. 3 General Instructions [facility] Emergency Department [address] [place] [address] Phone #: ext- [phone] 01/12/2021 11:19 Patient: [...] your back or spine 4 General Instructions [facility] Emergency Department [address] [place] [address] Phone #: ext- [phone] 01/12/2021 11:19 Patient: GALLITO MONTGOMERY Sex: M : 1995 Age: 26y [phone] [employer] [address] [place] [address], [place] [address]. All rights reserved. This information is not intended as asubstitute for professional medical care. Always follow your healthcare professional's instructions. You have been given the following additional information: Sciatica Do not work for one day.(Electronically signed by Giorgi Menjivar 01/13/2021 03:27) Name Value Range Interpretation Code Description Data Sera rce(s) Supporting Document(s) ID Date Data Source [id number] 01/12/2021 11:26:00 AM EDT [facility] 1 Clinical Report - Nurses [facility] Emergency Department [address] [place] [address] Phone #: ext- [phone] 01/12/2021 11:19 Patient: [...] reports he was seen on post and inlloyd. pt had an mri done and it showed bulging discs. pt reports he has a hx of a-fib so he was notgiven medications for pain.).Triage time: 11:25 01/12/2021. Acuity: LEVEL 3.This started yesterday. Onset. (sitting at rest).Treatment COFFEE WEIGHER:(pt states "i hate pills, so i didn't [...] Gil R.N. 2 Clinical Report - Nurses [facility] Emergency Department [address] [place] [address] Phone #: ext- [phone] 01/12/2021 11:19 Patient: [...] sinceincident 4 weeks ago when seen in [facility] ED and MRI done per patient. pt [...] verified and 3 Clinical Report - Nurses [facility] Emergency Department [address] [place] [address] Phone #: ext- [phone] 01/12/2021 11:19 Patient: [...] Patient transported to radiology by wheelchair with limited radiology technician. --12:09 01/12/21 Shanda Gonsales R.N.DISPOSITION / DISCHARGE Condition at departure: improved and stable. No learning barriers present. Discharge instructions provided and reviewed with the patient. Reviewed medication(s) side effects, precautions, dosing and course information. Prescription(s) sent electronically to pharmacy. Work note given. Patient verbalized understanding. Written instructions provided in Israeli. The patient was discharged by the physician. [...] rce(s) Supporting Document(s) ID Date Data Source [id number] 01/12/2021 11:26:00 AM EDT [facility] 1 Clinical Report - Physicians/Mid Levels [facility] Emergency Department [address] [place] [address] Phone #: ext- [phone] 01/12/2021 11:19 Patient: GALLITO MONTGOMERY Sex: M [...] bowel 1 moth ago was seen at [facility] and had an MRI which showed [...] Medications: Xarelto Oral. Alieve about 199901/11/2021. Allergies: Astatula. Avacado. 2 Clinical Report - Physicians/Mid Levels [facility] Emergency Department [address] [place] [address] Phone #: ext- [phone] 01/12/2021 11:19 Patient: GALLITO MONTGOMERY Sex: M [...] has 3 Clinical Report - Physicians/Mid Levels [facility] Emergency Department [address] [place] [address] Phone #: ext- [phone] 01/12/2021 11:19 Patient: GALLITO MONTGOMERY Sex: M [...] tablet. Refills: 0. Substitution permitted. Pharmacy - [facility] - [address] [facility] ; [place] [address]. . prednisone 10 mg tablet Take 4 tablet once a day for 10 days -- x 2 days then 3 tabs daily x 2 days then 2 tabs daily x 2 days then 1 tab daily x 2 days. Dispense 30 tablet. Refills: 0. Substitution permitted. [facility] [address] [facility] ; [place] [address]. . Percocet 5 mg-325 mg tablet Take 1 tablet four times a day for 3 days -- as needed for pain. Dispense 12 tablet. Refills: 0. Substitution permitted. Pharmacy - [facility] [address] ; [place] [address]. Phone: . 4 Clinical Report - Physicians/Mid Levels [facility] Emergency Department [address] [place] [address] Phone #: ext- [phone] 01/12/2021 11:19 Patient: GALLITO MONTGOMERY Sex: M [...] for blood pressure management.(Electronically signed by Giorgi Menjiavr 01/13/2021 03:27) Name Value Range Interpretation Code Description Data Sera rce(s) Supporting Document(s) ID Date Data Source [id number] 01/12/2021 02:58:[address] [facility] [address] [place] [address] PHONE: [phone] FAX: [phone] Name .................. : ULISES ZENDEJAS Acct Number.................. : [id number] ROOM. ................. : [place] MR Number ................... : [id number] Stay type ............. : E/R Discharge Date......... ... : Admit Date ......... : 08/30 Admit Phys .................... : CRISTELA Date of ....... : 1995 Family Phys ................... : UNKNOWN CO Phone .................. : [phone] Age ................................ : 26 Film# .................. .:[id number] Sex ................................. : M Unsigned transcriptions are preliminary reports and do not represent a medical or legal document SPINE LS COMPLETE [id number] COMPLETE:01/12/21 11:40 29949 Reason(s): Lower Back Pain LUMBOSACRAL SPINE 5 [...] rce(s) Supporting Document(s) ID Date Data Source [id number] 12/10/2020 12:16:59 PM EDT [facility] INFORMATIONPatient MRN Name Date of Age Gend*PT [id number] Gallito Hinojosa 1995 25 years M ---PT Location Admission Date/Time Visit ID Attending Provider --- --- --- --- EPI ID CSN Admitting Pro vider [id number] ---Cardiology Office VisitSubjectiveChief Complaint: Status post atrial [...] having procedure completed he went [facility] twice due tonausea, vomiting, and [...] Social Gatherings with Friends and Family: Attends Gnosticism Services: Active Member of Clubs or Organizations: Attends Club or Organization Meetings: Marital Status:Intimate Partner Violence: Fear of Current or Ex-Partner: Emotionally Abused: Physically Abused: Sexually Abused:Medications and AllergiesAllergiesAllergen Reactions Astatula Meal Anaphylaxis Avocado AnaphylaxisCurrent Outpatient MedicationsMedication Sig [...] NEGATIVE Final Testing site 11/16/2020 PERFORMED AT [address] [place] [id number] Blood bank comment 11/16/2020 SEE NOTES Final [...] sinus rhythm. [facility] Patient will call the office if [...] rce(s) Supporting Document(s) ID Date Data Source [id number] 11/30/2020 11:12:00 AM EDT [facility] Name Value Range Interpretation Code Description Data Sera rce(s) Supporting Document(s) Albumin [Mass/volume] in Serum or Plasma 4.0 [facility] ([facility]) Alanine aminotransferase [Enzymatic activity/volume] in Serum or Pl asma 32 [facility] ([facility]) Calcium [Mass/volume] in Serum or Plasma 9.5 [facility] ([facility]) Carbon dioxide, total [Moles/volume] in Serum or Plasma 30 [facility] ([facility]) Chloride [Moles/volume] in Serum or Plasma 104 [facility] ([facility]) Alkaline phosphatase [Enzymatic activity/volume] in Serum or Plasma 7 4 [facility] ([facility]) Potassium [Moles/volume] in Serum or Plasma 4.1 [facility] ([facility]) Protein [Mass/volume] in Serum or Plasma 7.6 [facility] ([facility]) Sodium 137 [facility] Aspartate aminotransferase [Enzymatic activity/volume] in Serum or Plasma 19 [facility] ([facility]) Urea nitrogen [Mass/volume] in Serum or Plasma 11 [facility] ([facility]) Glucose 77 70-100 [facility] Creatinine For GFR 1.06 [facility] ([facility]) ID Date Data Source [id number] 11/30/2020 11:12:00 AM EDT [facility]) Name Value Range Interpretation Code Description Data Sera rce(s) Supporting Document(s) White Blood Count 5.3 4.3-10.9 [facility] ([facility]) Red Blood Count 5.28 4.70-6.20 [facility] ([facility]) Platelets 153 130-400 [facility] ([facility] Hemoglobin 16.0 13.0-17.0 [facility] ([facility]) Hematocrit 47.7 39.0-50.0 [facility] ([facility]) ID Date Data Source [id number] 11/21/2020 11:09:00 AM EDT [facility]) Name Value Range Interpretation Code Description Data Sera rce(s) Supporting Document(s) Troponin 1.48 [facility] ([facility] Magnesium Level 2.1 [facility] ([facility]) ID Date Data Source [id number] 11/21/2020 11:09:00 AM EDT [facility] ([facility]) Name Value Range Interpretation Code Description Data Sera rce(s) Supporting Document(s) Calcium [Mass/volume] in Serum or Plasma 9.1 [facility] ([facility]) Sodium 140 [facility] ([facility]) Carbon dioxide, total [Moles/volume] in Serum or Plasma 26 [facility] ([facility]) Chloride [Moles/volume] in Serum or Plasma 107 [facility] ([facility]) Potassium [Moles/volume] in Serum or Plasma 4.1 [facility] ([facility]) Glucose 76 70-100 [facility] ([facility]) Blood Urea Nitrogen 12 5-21 [facility] ([facility]) Creatinine 0.93 0.6-1.5 [facility] ([facility]) Glomerular filtration rate/1.73 sq M.pre dicted [Volume Rate/Area] in Serum or Plasma by Creatinine-based formula (MDRD) Laboratory [facility] ([facility]) ID Date Data Source [id number] 11/20/2020 07:17:20 AM EDT [facility] Name Value Range Interpretation Code Description Data Sera rce(s) Supporting Document(s) &PDF [facility] KCYZMb5xJlVTMpHr43/CKTmqSMYjs0LsRCekWIv9QPoeOBNiU6SxsPzrTWlZPT3rBpEUSDlIKGXhTDKH yZW [file] AgICAgICAgICAgICAgICAgICAgICAgICAgICAgICAgICAgICAgICAgICAgICAgICAgDQogICAgICAgIC AgICAgICAgICAgICAgICAgICAgICAgICAgICAgICAg ICAgICAgICAgICAgICAgICAgICAgICAgICAgICAgICAgICAgICAgICAgICAgICAgICAgICAgICAgICAg DQogICAgICAgICAgICAgICAgICAgICAgICAgICAgICAgICAgICAgICAgICAgICAgICAgICAgICAgICAg ICAgICAgICAgICAgICAgICAgICAgICAgICAgICAgIC AgICAgICAgICAgDQogICAgICAgICAgICAgICAgICAgICAgICAgICAgICAgICAgICAgICAgICAgICAgIC AgICAgICAgICAgICAgICAgICAgICAgICAgICAgICAgICAgICAgICAgICAgICAgICAgICAgDQogICAgIC AgICAgICAgICAgICAgICAgICAgICAgICAgICAgICAg ICAgICAgICAgICAgICAgICAgICAgICAgICAgICAgICAgICAgICAgICAgICAgICAgICAgICAgICAgICAg ICAgDQogICAgICAgICAgICAgICAgICAgICAgICAgICAgICAgICAgICAgICAgICAgICAgICAgICAgICAg ICAgICAgICAgICAgICAgICAgICAgICAgICAgICAgIC AgICAgICAgICAgICAgDQogICAgICAgICAgICAgICAgICAgICAgICAgICAgICAgICAgICAgICAgICAgIC AgICAgICAgICAgICAgICAgICAgICAgICAgICAgICAgICAgICAgICAgICAgICAgICAgICAgICAgDQogIC AgICAgICAgICAgICAgICAgICAgICAgICAgICAgICAg ICAgICAgICAgICAgICAgICAgICAgICAgICAgICAgICAgICAgICAgICAgICAgICAgICAgICAgICAgICAg ICAgICAgDQogICAgICAgICAgICAgICAgICAgICAgICAgICAgICAgICAgICAgICAgICAgICAgICAgICAg ICAgICAgICAgICAgICAgICAgICAgICAgICAgICAgIC AgICAgICAgICAgICAgICAgDQogICAgICAgICAgICAgICAgICAgICAgICAgICAgICAgICAgICAgICAgIC AgICAgICAgICAgICAgICAgICAgICAgICAgICAgICAgICAgICAgICAgICAgICAgICAgICAgICAgICAgDQ a4S4lrKZObIUEpAM4eJPu9Iw5+KDbHIpKpGOH6joHx eV8VCC6gj8PuWOtdNPLvw7MhLHl2SZ2BIDVvXTknUZ3HRIevzu7CAZDaVMOmiXBXr1ldXwEuAIC5IYAq UvwrDN5AEAJzS0rbsmXsXBAxFLQCWLqsMNWJEGnkNJQVOVMnTSBoKrSbOTskRM7My9FiuBC6TFu+Pg0K LM6bp0NaPFgbCeWrKI9imf2SMQcGYqCsB7OglfV1FJ RhRSXkTd1EVJRgIAGbjZCeFdXuOMMAQjXaS7UcuB24UZCOFp4+YCmjnjDdOjnKNaQvAHKxe7QbKGn1TE 1ISPSbUFd4vASlKA9rnEYqoOWkSDfrEZ9URPV1YYinQZNoCYTFDD0KAZteLZY1DxnmzvCwjDRwZKptCO 9QYXJlbnQgMjIgMCBSDQo+Gg2RAP0nf2ExBZhbNVUl JQ1qok1JHUtALoMnH6J0qKLdR7W7YGgiHa6VRKFjPTPxXvEaSGOPMUonKV1EFK8uatL0TW1AuPMzQAOm ZFGfoHQcHJg5S71jhCJtPSoiPX2HJYV+Doroteo+Yc5UFXLiBPQnCPMdImFuSGCGUrTxU3RzA2ZDn3FsX4Pl KT10vWhkyfPzGCioOU5PLS8eDPSdUNXTVO1NhQErdZ 9dorHeSaPbNPIGByXwM33dwRUiKDEiGHAvTPMzUn3EEPAeP3ImcdBhrPlgtxIyJDPxILEPBZ7GPXsgny FkrGNnpRhjIX53cDrgWM7QKr8XAfXiOC8ige0TvUKnBh1TZMJyCR4CSUShNUGhEXGzNXV8OUFnVqMgVV goBUAaAVAiWOH7WEMgYKEbCL3PWtBfMYTjLGb3MGRc GMHyPCZqab8WPIYtMFSzFWPqQWToRWRgHODlCSihSXPgXFGxLAx5RCDmDJExGJ5NDcViWEDwKQDoRTJg MSXoIKAafb7DALAoAJLpGlVlFhLdXQQpDEFsHRqrHRHyCLH6KjF3CSLhHEQuVA1WUvDzEHMdPAV5JMss IEJfGSMold2VMPWtVRRlFCJxUnEzUPZyVRVpBVgiJF QvPKL5UrQ9DYYkQNQtGF7XCbVpCSWxZNAnKSClCFDqLFDumb7NHHEtALXiKQK9QAHjALZeLYJaAZqdZT ErIRXjXGE9DECtSBSnYY2AVwIjZGHwWEJ2QOKtUIFhMZOcga2NILLoDOUpZCp3XPFjNMJwDMKiCRtdYQ SuAOFqLGI0OPWzSCXxTN4QXvIbHXOrMKDaTrLrDOVo YFZrrv3HJOIaQXNdGdF3VMZmGYNsTYAaVIhzGRRgEDW3KBRsTHQmMZWtFF9KJiFoXKYnGUg9SpVaTWLv DUDzze5KDNOyOQEuCTV8UVPjXVNuADLbRUkeZOVkCSBbKqFhHSDiLGVuRM9QTdNzTXKmApY1ORKeFGQg PIPmco3IMELcUSYoIAsaFzTcWOPrRUKeXKm6imRbjZ HfUMv0MM3CO5TqjeUjMyEODh8Al266BBC0QCPxPu4IS1fiBu0nKWVkFLHODo5CREa4RDTkRhfaGxB2YU UcEOCdRVx3CvHqJXL9FTC4BuD2ILQ+TJygWTF5W8XjXOm1JeZ6JSJqRJzvJkE6ITq4DYLnTbL3YI0bXN ANCj4+SUcwoUIilPmpRQUCGgJwCZE2SAlsUTKAWy7I ID Date Data Source [id number] 11/19/2020 11:45:51 AM EDT [facility] INFORMATIONPatient MRN Name Date of Age Gend*PT [id number] Gallito Hinojosa 1995 25 years M HOPPT Location Admission Date/Time Visit ID Attending Provider --- --- --- --- EPI ID CSN Admitting Pro vider [id number] ---Arterial Line PlacementPatient location during procedure: ORIndications [...] rce(s) Supporting Document(s) ID Date Data Source [id number] 11/19/2020 11:45:21 AM EDT [facility] NT INFORMATIONPatient MRN Name Date of Age Gend*PT [id number] Gallito Hinojosa 1995 25 years M HOPPT Location Admission Date/Time Visit ID Attending Provider --- --- --- --- EPI ID CSN Admitting Pro vider [id number] ---AirwayPatient location during procedure: ORUrgency: electiveDifficult airway: [...] cmPlacement verified by: chest auscultation and + WIGL2Swlafunmravn: CTA and equal breath sounds bilateralGrade view: grade IIa - partial view of glottis Name Value Range Interpretation Code Description Data Sera rce(s) Supporting Document(s) ID Date Data Source [id number] 11/19/2020 10:48:37 AM EDT [facility] NT INFORMATIONPatient MRN Name Date of Age Gend*PT [id number] Gallito Hinojosa 1995 25 years M HOPPT Location Admission Date/Time Visit ID Attending ProviderCV-11 11/19/20 1035 --- Ward Durán MD([id number]) EPI ID CSN Admitting Provider [id number] Ward Durná MD([id number])H&P reviewed. The patient was examined and there are no changes to the H&P.Ward Durán MD10:48 AM Name Value Range Interpretation Code Description Data Sera rce(s) Supporting Document(s) ID Date Data Source [id number] 11/16/2020 10:08:39 AM EDT [facility] Name Value Range Interpretation Code Description Data Sera rce(s) Supporting Document(s) EKG [facility] HICHCv4rYvJZVoTxl0HwEiZjPNJlJS1qhmx3S5Q7cIGnG5OyfWKab2haV3GzN5WxWORaVUWFUU9KuRAg jb2 [file] OTggMDAwMDAgbiAKMDAwMDAwMDQwOSAwMDAwMCBuIA xsDVDpYKHvJKNoLWEoQMTiQZ5tCqQiMFTiANW5QRMvBLWjBHUorcBOLNPvBSWhIDs7MOWmVYVtPKIcPO zlZKBlUMLlNZN4VVTgGVOvCW3oAlBcXKVqLQI3OjSuYVDiQMCgpxYYDEOeDUEjMDU0SxBdCEMbMNLvEJ uaLHLuVGCbAPbjQHHzHNZjIA9rRbBjGXVzXVWjJFer HIEcXODnqtVYANZtSLLdEPZiSzJjBJNyRBPoBOzsNGBpVSOuCvB6UBUuYOHeMB8mBeYzNLDnMFO4ERun HNInYGDyerFKHJVtTNNaEVruRUIwNCKcNBZbQQlcGUUxHWUxJJW2GDQxWVVkZY6fVyNfGECsWWKlPVTt PsH4ZuWxDkYUsQRikWatvco4XUxrZ9c8ATDoQVkrRR 4nuqHfCXXfTqlsMr8crNL5IWShDpeLEp7Ka2RsmgX5eeKzIgKwImUpFzQfWO9C ID Date Data Source [id number] 11/16/2020 09:13:47 AM EDT [facility] NT INFORMATIONPatient MRN Name Date of Age Gend*PT [id number] Gallito Hinojosa 1995 25 years M OPPT Location Admission Date/Time Visit ID Attending Provider --- --- --- Violeta Ortega([id number]) EPI ID CSN Admitting Provider [id number] ---OUTPATIENT / OBSERVATIONAL SURGICAL OR INVASIVE PROCEDUREName: Gallito Camargo : 1995 Sex: male [facility] CareAttending Physician: Dr. Blanca OF PRESENT ILLNESS: Mr Camargo is a 25 years old -[place]gent[place] malewith history of depression, anxiety, GERD, and [...] RECORDER 08/2020 WISDOM TOOTH EXTRACTION localALLERGIES:AllergiesAllergen Reactions Astatula Meal Anaphylaxis Avocado AnaphylaxisMEDICATIONS:Prior to Admission medicationsMedication [...] thyromegaly. No carotid bruits.MENTAL / NEUROLOGICAL STATUS: [id number]: Clear to auscultation. No wheezes, rhonchi or crackles.HEART: Rate rhythm regular. S1, S2. No murmur, rub or gallop.ABDOMEN: Bowel sounds positive times four. Soft, non tender. No reboundtenderness. No hepatosplenomegaly. Negative CVAT.EXTREMITIES: Pulses are symmetrical. NO edema.[facility]est[facility] complications: [facility] :: 3/10 Managing Well [...] parts of this document, were dictated using Budding Biologist software. A reasonable attempt at proofreading has beenmade to minimize errors. Please call with any questions or corrections.* Name Value Range Interpretation Code Description Data Sera rce(s) Supporting Document(s) ID Date Data Source [id number] 11/16/2020 05:46:21 PM EDT [facility] SPEC EXP DATE 1PATI ENT ABO/Rh O POSITIVEANTIBODY SCREEN NEGATIVETESTING SITE PERFORMED AT [address] [place] [address] [id number] BANK COMMENT BLOOD TYPE CONFIRMED. Name Value Range Interpretation Code Description Data Sera rce(s) Supporting Document(s) TYPE AND SCREEN [facility] ID Date Data Source [id number] 11/16/2020 04:03:58 PM EDT [facility] Name Value Range Interpretation Code Description Data Sera rce(s) Supporting Document(s) WBC 3.7 10*3/uL (4.1-11.0) L [facility] RBC 4.93 10*6/uL (4.60-6.10) [facility] HGB 15.3 g/dL (13.5-18.0) [facility] HCT 45.9 % (41.0-53.0) [facility] MCV 93.3 fL (80.0-95.0) [facility] MCH 31.0 pg (27.0-32.0) [facility] MCHC 33.2 g/dL (32.0-36.0) [facility] RDW 13.7 % (10.5-14.5) [facility] PLT 149 10*3/uL (150-450) L [facility] MPV 11.0 fL (7.1-10.7) H [facility] ID Date Data Source [id number] 11/16/2020 03:47:26 PM EDT [facility] Name Value Range Interpretation Code Description Data Sera rce(s) Supporting Document(s) SODIUM 140 mmol/L (136-145) [facility] POTASSIUM 4.3 mmol/L (3.6-5.2) [facility] CHLORIDE 104 mmol/L (100-108) [facility] CO2 32 mmol/L (22-31) H [facility] ANION GAP 4 mmol/L (7-16) L [facility] UREA NITROGEN 14 mg/dL (7-24) [facility] CREATININE 1.01 mg/dL (0.80-1.30) [facility] BUN/CREAT RATIO 13.9 RATIO (10.0-20.0) [facility] GLUCOSE 89 mg/dL (70-99) [facility] CALCIUM 9.3 mg/dL (8.4-10.2) [facility] GFR >60 ml/min/1.73m2 (>59) [facility] GFR ( AMER) >60 ml/min/1.73m2 (>59) [facility] GFR INTERPRETATION [facility] --NORMAL KIDNEY FUNCTION OR MILD DISEASE - GFR >OR= 60CHRONIC KIDNEY DISEASE - GFR 15 - 59RENAL FAILURE - GFR <15 Est. GFR calculation based on the MDRDstudy equation, which assumes a steadystate for creatinine. Est. GFR should notbe used for medication dosing. ID Date Data Source [id number] 09/23/2020 04:40:52 PM [facility]T [facility] INFORMATIONPatient MRN Name Date of Age Gend*PT [id number] Gallito Hinojosa 1995 25 years M ---PT Location Admission Date/Time Visit ID Attending Provider --- --- --- --- EPI ID CSN Admitting Pro vider [id number] ---[facility] [id number] [facility], [address] (First Floor)[place], [place] [address]Zy.: Fax: Patient: Gallito Camargo : 1995Date: 04/14/21CARDIOLOGY TELEMEDICINE VISITPatient was identified by name and date of .Verbal consent was obtained from the patient for this telemedicine visit.Patient is aware of the risks, limitations, and benefits of a telemedicinevisit.This telemedicine assessment was conducted remotely with the assistance ofEncore Interactive communication technology. Telephone Only Codes 15705: 21-30 minutesof medical discussion: Telephone Only .Subjective:Gallito [...] and benefitsFollow Up cryoablationSignature: Ward Durán MD, [facility]ENTERCardiac Electrophysiology and Arrhythmia ServiceDate: September 23, 2020Time: 4:37 PMThis document or parts of this document, were dictated using My Healthy Worldware. A reasonable attempt at proofreading has been made to minimize errors.Please call with any questions or corrections. Name Value Range Interpretation Code Description Data Sera rce(s) Supporting Document(s) ID Date Data Source [id number] 08/17/2020 11:31:00 AM EST [facility] Name Value Range Interpretation Code Description Data Sera rce(s) Supporting Document(s) SARS coronavirus 2 RNA Not Detected [facility] This lab was ordered by [facility] and reported by [facility]. ID Date Data Source [id number] 07/09/2020 03:02:00 PM EST [facility] ([facility] Name Value Range Interpretation Code Description [...] Serum or Plasma 4.20 [facility] ([facility]) Glucose 120 74-106 [facility] Blood Urea Nitrogen 11 7-18 [facility] ([facility]) Creatinine 1.05 0.70-1.30 [facility] ([facility]) Glomerular filtration rate/1.73 sq M.pre dicted [Volume Rate/Area] in Serum or Plasma by Creatinine-based formula (MDRD) 99.6 [facility] ([facility]) ID Date Data Source [id number] 06/24/2020 11:06:40 AM EST [facility] INFORMATIONPatient MRN Name Date of Age Gend*PT [id number] Gallito Hinojosa 1995 25 years M ---PT Location Admission Date/Time Visit ID Attending Provider --- --- --- --- EPI ID CSN Admitting Pro vider [id number] ---[facility] [id number] [facility], [address] (First Floor)[place], [place] [address]Jz.: Fax: Katient: Gallito Camargo : 1995Date: 06/24/20CARDIOLOGY TELEMEDICINE VISITPatient was identified by name and date of .Verbal consent was obtained from the patient for this telemedicine visit.Patient is aware of the risks, limitations, and benefits of a telemedicinevisit.This telemedicine assessment was conducted remotely with the assistance ofEncore Interactive communication technology. Telephone Only Codes 54047: 21-30 minutesof medical discussion: Telephone Only .Subjective:Gallito [...] [place]. [place]. I am not sure he is having anyatrial fibrillation at all. I am not sure any of his symptoms already beencardiac in nature. This may all be anxiety driven. However we will need tocorrelate symptoms to his underlying cardiac rhythm. We will arrange for thepatient to have a 30-day event monitor done through his pad hand [facility]. If the event monitor shows atrial [...] event monitor shows atrialfibrillationSignature: Ward Durán MD, [facility]ENTERCardiac Electrophysiology and Arrhythmia ServiceDate: June 24, 2020Time: 11:02 AMThis document or parts of this document, were dictated using My Healthy Worldware. A reasonable attempt at proofreading has been made to minimize errors.Please call with any questions or corrections. Name Value Range Interpretation Code Description Data Sera rce(s) Supporting Document(s) ID Date Data Source [id number] 05/22/2020 12:50:00 PM EST [facility] ([facility]) Name Value Range Interpretation Code Description Data Sera rce(s) Supporting Document(s) T[facility]onin [facility] ID Date Data Source [id number] 05/22/2020 12:50:00 PM EST [facility] ([facility]) Name Value Range Interpretation Code Description Data Sera rce(s) Supporting Document(s) White Blood Count 4.5 4.0-10.0 [facility] ([facility]) Red Blood Count 5.33 4.30-6.10 [facility] ([facility]) Platelets 168 150-450 [facility] ([facility]) Hemoglobin 15.7 [facility] ([facility]) Hematocrit 48.2 [facility] ([facility]) ID Date Data Source [id number] 05/22/2020 12:50:00 PM EST [facility] ([facility]) Name Value Range Interpretation Code Description Data Sera rce(s) Supporting Document(s) Calcium [Mass/volume] in Serum or Plasma 9.7 [facility] ([facility]) Sodium 138 [facility] Carbon dioxide, total [Moles/volume] in Serum or Plasma 30 [facility] ([facility]) Potassium [Moles/volume] in Serum or Plasma 4.4 [facility] ([facility]) Chloride [Moles/volume] in Serum or Plasma 104 [facility] ([facility]) Blood Urea Nitrogen 14 7-18 [facility] ([facility]) Glucose 70 70-100 [facility] ([facility]) Glomerular filtration rate/1.73 sq M.pre dicted [Volume Rate/Area] in Serum or Plasma by Creatinine-based formula (MDRD) Laboratory test result [facility] ([facility]) Creatinine 1.06 0.70-1.30 [facility] ([facility]) ID Date Data Source [id number] 04/02/2020 02:04:26 PM EDT [facility] INFORMATIONPatient MRN Name Date of Age Gend*PT [id number] Gallito Hinojosa 1995 25 years M ---PT Location Admission Date/Time Visit ID Attending Provider --- --- --- --- EPI ID CSN Admitting Pro vider [id number] ---Cardiology Office NoteName: Gallito Camargo Gender: maleDate of : 1995 Age: 25 yearsPrimary Care Provider / Referring Phys[facility] HistoryChief Complaint: Follow-up to recent cryoablation for atrial fibrillationHPI:This patient is a 25 years male presents today for follow-up. He has thefollowing medical problem list:1. Paroxysmal atrial fibrillation; status post cryoablation 03/20/2020Patient presents today for follow-up. He tells me that he did have episode ofchest pain and feeling short of breath postprocedure. [facility] He states that those symptoms have [...] file Gets together: Not on file Attends worship service: Not on file Active member of [...] History Narrative Not on fileMedications and AllergiesALLERGIES/SENSITIVITIES: Astatula meal and AvocadoCurrent Outpatient Medications: metoprolol tartrate [...] parts of this document, were dictated using Huoshiware. A reasonable attempt at proofreading has been made to minimize errors.Please call with any questions or corrections. Name Value Range Interpretation Code Description Data Sera rce(s) Supporting Document(s) ID Date Data Source [id number] 03/24/2020 12:46:00 PM EDT [facility] Name Value Range Interpretation Code Description Data Sera rce(s) Supporting Document(s) Free T4 1.05 [facility] ([facility] Thyroid Stimulating Hormone 0.923 [facility] ([facility]) ID Date Data Source [id number] 03/24/2020 12:46:00 PM EDT [facility] Name Value Range Interpretation Code Description Data Sera rce(s) Supporting Document(s) Aspartate aminotransferase [Enzymatic activity/volume] in Serum or Plasma 24 [facility] ([facility]) Alkaline phosphatase [Enzymatic activity/volume] in Serum or Plasma 7 3 [facility] ([facility]) Alanine aminotransferase [Enzymatic activity/volume] in Serum or Pl asma 45 [facility] ([facility]) Protein [Mass/volume] in Serum or Plasma 7.6 [facility] ([facility]) Bilirubin.direct [Mass/volume] in Serum or Plasma Laboratory test res ult [facility] ([facility]) Bilirubin.total [Mass/volume] in Serum or Plasma 0.4 [facility] ([facility]) Albumin [Mass/volume] in Serum or Plasma 4.0 [facility] ([facility]) Cholesterol [Mass/volume] in Serum or Plasma Laboratory test result [facility] ([facility]) ID Date Data Source [id number] 03/24/2020 12:46:00 PM EDT [facility] ([facility]) Name Value Range Interpretation Code Description Data Sera rce(s) Supporting Document(s) Calcium [Mass/volume] in Serum or Plasma 9.6 [facility] ([facility]) Sodium 138 [facility] ([facility]) Carbon dioxide, total [Moles/volume] in Serum or Plasma 30 [facility] ([facility]) Potassium [Moles/volume] in Serum or Plasma 4.1 [facility] ([facility]) Chloride [Moles/volume] in Serum or Plasma 103 [facility] ([facility]) Blood Urea Nitrogen 11 7-18 [facility] ([facility]) Glucose 95 70-100 [facility] ([facility]) Creatinine 0.98 0.70-1.30 [facility] ([facility]) Glomerular filtration rate/1.73 sq M.pre dicted [Volume Rate/Area] in Serum or Plasma by Creatinine-based formula (MDRD) Laboratory test result [facility] ([facility]) ID Date Data Source [id number] 03/24/2020 12:46:00 PM EDT [facility] ([facility] Name Value Range Interpretation Code Description Data Sera rce(s) Supporting Document(s) White Blood Count 5.1 4.0-10.0 [facility] Red Blood Count 5.06 4.30-6.10 [facility] Platelets 132 150-450 [facility] ([facility] Hemoglobin 15.4 [facility] ([facility]) Hematocrit 46.5 [facility]) ID Date Data Source [id number] 03/20/2020 10:39:41 AM EDT [facility] Name Value Range Interpretation Code Description Data Sera rce(s) Supporting Document(s) &PDF [facility] URBDRm6uXeHAEyVo05/UHIceLUWph4BfPAgeKNc4ENwuFFKzT7ZovJpeUAmEZF9yAvLJIKrNFFQjAPBX yZW X2y8QlTVTgDsKQvDI9PO0gUKUbffKahzL5bB0aDV6JGCZ+Cn9VNZ8qb5PlWNk9JYOly6KaPTrmIIn7V2 TqpMTyzuFzKiwapHORLHSaSSZjU0dedxf3lSVjXtS0Xx2UFeGmf5HdCNDsUYfSdeOgY6/jNhZ+X6D/gc A+dAo0MW+daHOn6uxivbnFFMNKxvVSM5FEGO9dF5TG hAycs0FacIyyXNnMMNkJCoWnlc6h1ykQGdCDoP1/oOMwwBgj/eA5KGQZ7wK71o9mt5iUMtngi0Ls/TkQ gLmSCzpGdzyfAIC0loIhHnatEDdwCYUfdATgVG3i1HyKizaoyWSWLvqai+riEnEZMHREBeZotngz/Q7N /ddM8kqQoKyLyKPrb9NgBwIHcd+HYiqAMqFB5KDI9q SA70U3P0YupcigGCCueGIQqK89P4EtVRfUifjXrOKIQI2A8Dk9343ZbgEvGlEHQm2pTrcPXr+p711ysl kaIK4jOliz2+X5zJ/FaBcEJfeiXujzgpJeyDpUgMHGMrzO7O8chyrTVfmaxJIZS7tF/OkQ1FvVMUImnG ZRErg0tMeOysH9H5S9MltL+Ut46y+edKFwhaPUCo5M t91NVNXyxPWIChEHqBKGBPUTjXLKFPBP7x0XtUZDINLrtxW10DdxoamIV2rkWVZT8FfucP6OkoLWFEDG [file] H2TxRuSALeJCT6EAAzMmjxHk6lUASXAs3+HSzanKZxfNamEAWJSsB9WpN0VQhcOQBQFv6K ID Date Data Source [id number] 03/20/2020 09:48:22 AM EDT [facility]FORMATION[facility] Name Date of Age Gend*PT [id number] Gallito Hinojosa 1995 25 years M HOPPT Location Admission Date/Time Visit ID Attending Provider --- --- --- --- EPI ID CSN Admitting Pro vider [id number] ---Arterial Line PlacementPatient location during procedure: ORIndications [...] rce(s) Supporting Document(s) ID Date Data Source [id number] 03/20/2020 09:47:46 AM EDT [facility] INFORMATIONPatient MRN Name Date of Age Gend*PT [id number] Gallito Hinojosa 1995 25 years M HOPPT Location Admission Date/Time Visit ID Attending Provider --- --- --- --- EPI ID CSN Admitting Pro vider [id number] ---AirwayPatient location during procedure: ORUrgency: electiveDifficult airway: [...] cmPlacement verified by: chest auscultation and + ZCKY9Byzuabdehtly: equal breath sounds bilateral and CTAGrade view: grade I - full view of glottis Name Value Range Interpretation Code Description Data Sera rce(s) Supporting Document(s) ID Date Data Source [id number] 03/20/2020 08:48:41 AM EDT [facility] INFORMATIONPatient MRN Name Date of Age Gend*PT [id number] Gallito Hinojosa 1995 25 years M HOPPT Location Admission Date/Time Visit ID Attending Provider-03/20/20 0756 --- Ward Durán MD([id number]) EPI ID CSN Admitting Provider [id number] Ward Durán MD([id number])H&P reviewed. The patient was examined and there are no changes to the H&P.Ward Durán MD8:48 AM Name Value Range Interpretation Code Description Data Srea rce(s) Supporting Document(s) ID Date Data Source [id number] 03/15/2020 08:21:00 AM EDT [facility] Name Value Range Interpretation Code Description Data [facility] Supporting Document(s) SARS coronavirus 2 RNA [facility] This lab was ordered by [facility] and reported by [facility]. ID Date Data Source [id number] 03/17/2020 03:07:40 AM EDT [facility] Name Value Range Interpretation Code Description Data [facility] Supporting Document(s) SARS-COV-2 MYAH [facility] Not DetectedReference range: Not Detecte d This nucleic acid amplification test was developed and its performance characteristics determined by [facility]. Nucleic acid amplification tests include PCR [...] result in this assay. Performed At: [facility] [address] [id number] Jorge Fernando MD Ph:[phone] ID Date Data Source [id number] 03/13/2020 01:31:20 PM EDT [facility] INFORMATIONPatient MRN Name Date of Age Gend*PT [id number] Gallito Hinojosa 1995 25 years M OPPT Location Admission Date/Time Visit ID Attending Provider --- --- --- Violeta Ortega([id number]) EPI ID CSN Admitting Provider [id number] ---OUTPATIENT / OBSERVATIONAL SURGICAL OR INVASIVE PROCEDUREName: Gallito Camargo : 1995 Sex: male Care Provider: [facility] CareAttending Physician: Dr. Durán.HISTORY OF PRESENT ILLNESS: 25 years old black male with a 3-year history ofpalpitations, shortness of breath and syncope related to a diagnosis of atrialfibrillation. He is currently serving in the [employer] and was to undergo anatrial fibrillation ablation last year in [place] and declined due to theinexperience of the home health clinical liaison. His last syncopal episode was inD2018. He [...] Laterality Date WISDOM TOOTH EXTRACTION localALLERGIES:AllergiesAllergen Reactions Astatula Meal Anaphylaxis Avocado AnaphylaxisMEDICATIONS:Prior to Admission medicationsMedication [...] thyromegaly. No carotid bruits.MENTAL / NEUROLOGICAL STATUS: [id number]: Clear to auscultation. No wheezes, rhonchi or [...] parts of this document, were dictated using Budding Biologist software. A reasonable attempt at proofreading has beenmade to minimize errors. Please call with any questions or corrections.* Name Value Range Interpretation Code Description Data Sera rce(s) Supporting Document(s) ID Date Data Source [id number] 03/13/2020 12:40:00 PM EDT [facility] Name Value Range Interpretation Code Description Data Sera rce(s) Supporting Document(s) Red Blood Count 5.10 [facility] ([facility]) White Blood Count 4.0 [facility] ([facility]) Platelets 130 [facility] Hemoglobin 15.9 [facility] ([facility]) Hematocrit 47.3 [facility] ([facility]) ID Date Data Source [id number] 03/13/2020 12:40:00 PM EDT [facility] ([facility]) Name Value Range Interpretation Code Description Data Sera rce(s) Supporting Document(s) Sodium 140 [facility] ([facility] Carbon dioxide, total [Moles/volume] in Serum or Plasma 33 [facility] ([facility]) Calcium [Mass/volume] in Serum or Plasma 9.5 [facility] ([facility]) Chloride [Moles/volume] in Serum or Plasma 104 [facility] ([facility]) Glucose 85 [facility] ([facility] Blood Urea Nitrogen 11 [facility] ([facility]) Potassium [Moles/volume] in Serum or Plasma 4.1 [facility] ([facility]) Glomerular filtration rate/1.73 sq M.pre dicted [Volume Rate/Area] in Serum or Plasma by Creatinine-based formula (MDRD) Laboratory test result [facility] ([facility]) Creatinine 1.02 [facility] ([facility]) ID Date Data Source [id number] 03/13/2020 12:11:56 PM EDT [facility] Name Value Range Interpretation Code Description Data Sera rce(s) Supporting Document(s) EKG [facility] AXIXOl2cAzNUSlMan0FrYnJpZCAdEY8xhjv6U0D2rRAjN0VibACps3wdD2ImP6YvOKTeUHVUFL6WyLIz jb2 [file] f/graduation coach/4///xFPz3/JvoR73l69Zt2X/So3JSkx/wlsF0H33I+louW8YOS+SyM/9yz+PIRSP/cs/i/P8L/ 635Nx43i3o/3LT54fjl/eYjgvVGtdsn62TG83at+1P 2exX/4v2fxH/CexZeap+xdAp9ewbv/WYrxJvHUSEswEQEcUUzfkUlEWJZQV4RDbEMbKgLPwkSNHASlZh [id number]/+AvFIIKkEyqHningzKexZ/Cd2zDmucBU0/7ln8X+SNf+5Z/J +j+z/1YI7GrjOuVBXbcZFnpKW3jhtFX+mVu2IXYTCQ MB+KGYjLLGHuR7OO7xs42In20GhebFLfZ6Z9OL8EUKORwRvAgoBwaS4jMLcIKfqU+yEIgkJABpsMNhls PupxyOkaq0T9FeCoDWPGqPX4vfKkXFBDQNQPTReCSXTVWXaTMGNNELaQMZAXKWAxBJVZfDLCCJCMHpFC [file] 9o22Zf2xNjssxTy918xHl022Qs1/P98/rx2esKCiY7j716JCm93k0z0J0q65oXZ7f0b6N1ux7s3/Pxv/ KZ9/38/7juzzHuXfym+0E1th9NRvOJ+LG1zO3e4hf1gUfEUjRBIdKMyCS4hG9SytFaz2PkzO4CqwL3Ya oN7o3/45h+Hx8sO1htjyyqlwvRVslmSSfoQNsvdqFq m7jZ2Gjhvpvfn5rj0Vbowmpox8qy6Erhjazaliyr0yvGpf9oA5J+ptGN+B5M2V43eisdy8m28Y9x88bz MfnYN/9hq866RaM5taZJNfIfv/2aOeAUmuQp11m6I0U/080M8D/TzQzwPjOzG+E+1poZ9TszwbV8SpMe A60WeB25zq751Gu5TPSOcedhp/9if/bRmq1Rjn8hbt 5r5e332OjqXBenPvo4knaUdfhutqfu8eMJuzty35T+I2oN0175xwU1F8hf+3D4Yd4u4GDfh18eG6HhOO 7SAgimmx0RPRrprP82602fKPcs/1jvz3U+5PE0blK3ONiXqdtEoq3w83096i2MYcWC+RU3gN1LCl/h1w 2iuVA+XycoC+JbiBNc4a7w4GE+Vkg9wL04t6S2954/ lov3DKdSm9yz4quFNifZayl+/cB2OVxh8/I//i93x/Pz1Zne/vp platforms+czG9kD6IAf/u7IdeqRI4MhKsjr2M [file] 45Bu0r3O87wO+/JVh/buiQaUEOwgtfgcnB2s5Q8 [file] 43OSI0ZVDll102O70nS2XpjbDfxFc5e31/94mML0+Z eJz+ya9mLpxQ7K2vE7SyT18nR+3IagiS+Qw6i/9L8aLsF2WcetzYIudjA7bbYLY1zG0gDwmPhc/g80s9 cbSfVwKKC1oaHepWfgbpXxUriUWCfvTHUyGxp2UD1QiGRfEMAxG9E9HUKbud5zGSVnAWTrzVSlKeXcVZ WVYO8NrWBsIA3JBRw2WESsQHCgNeItJDVmspA6HNGd RHHmJMZxX3QhqdWbtQRuFCTgUi0+UN4sy7RbWjEoSCNmEmw4IH6YlOPgJW8FtQEcrG1tmoUoO764bnCt DWUmOytbx8TaZKjtVCPAGN0OOIO3WCH9AFNoRd0+DX3sn4YeKyIfVUNfLhw1QO6UkHAio7DdIS2EQ4Qj UCLqACTQLCE1j9VtQWMxmesnkqxnN4MnGHB3pF3oWK Y6UPFvURbsRJLrGLIpIgRvRCGnUMhrWHYcFEZbCXAxXNKyNIv7kGGpHU0NV1IvVUHjLSQKIBSrsyTaAv 6hOBfZCS0hQzWUXRbZOHYnPO0LExSkAWYfCzo5IrE2VKTzE2ZeozCttHKjMSBYFHhaQgtdYOOjwC0gwK gwL4LhLHY2q2ZhZC2GA4HvQSPgQNXWCYP6o9ItCRGt iqkrjaglIkCaVSVmLOJqQETnDL5Esd6jqIKuumKnPPCDAWbcWblvXG0zwIllgxpmE1IaiGTvEUX+PmVu AM8zyu0+UqTaKMUhDsw0AAIiTSedPSUvANQuPAWoG2hpAPExOdSyAQEaDkSxQH9Te0GlpDEpEi6dmmZu YmoKeHJlZgogICAgIDAgICAgMjQKMDAwMDAwMDAwMC L2RODeBMPuAUzkOGYfUVHmKHglQMLsZPGuCL3xJqDsMXWxKJM8HQIwECQrKTQhiiIRBHKdKSR2NDxmHR KzUHAwNWQpZUnsLKNqEJQcHMVaYXA9USN8EJBlLrKaCJNxJTZtEEAmRXFxYLPyglNLGNZmKDHhUJW2QZ OyOQAxCIGhFKwmVOVkDWVbWJtzEVIsRWHeEF1oVyHq GXYqVVGgVKufLUJnSJCsriOOOMRtTKGjKSYuBOPcIWNeYXYlVXicPZSeMPNjCYOhTLOjXNBeBA1jEcGi JUTxVWQ1GUZhXYVjBDMjdjKNMWDrIOSsJEm0UYGgQBBpVITuRYihYVXuUAXpTPY0AQSeDVJvGB4xUkQr VWJuRUO3KyQcZJVuMELpraEENRJmHXLfWZU2OnBxFA XoKKMsMFjzULDiZFTrTZvdJTTnCPZxDT5qXhIuPJBaXTEwKHxtBMQwBZActuDEWSEfTWTqKNTtQnTmSX CdEKVqJRqxHHYxQWIhZtZzGIKeSLQfRH7fSaLuMZHyOQM8VWbsQBFxCRTfkqDWCSBtZYFzPBlfERZdXZ HsNKZqOCevVLIfJWZxLVH7IOVgDWAmWK1gTkGoREDy HGAgGENkGrB7PmIuDqWGhCCiePpmnzj4KBydT4q4CPMvILtoRO9xrmSyUGMaQxcuTw1igBN6FHHnEtmU Oz1Pe1KufwH6acTeNfVvMdM1PiAwAA2C ID Date Data Source [id number] 03/13/2020 10:22:00 AM EDT [facility] NGIO CHESTCLINICAL HISTORY: Persistent atrial [...] rce(s) Supporting Document(s) ID Date Data Source [id number] 03/13/2020 07:44:40 PM EDT [facility] SPEC EXP DATE 03/21/2020PATI ENT ABO/Rh O POSITIVEANTIBODY SCREEN NEGATIVETESTING SITE PERFORMED AT [address] [place] [address] Name Value Range Interpretation Code Description Data Sera rce(s) Supporting Document(s) TYPE AND SCREEN [facility] PATIENT ABO/Rh O POSITIVE ID Date Data Source [id number] 03/13/2020 03:58:34 PM EDT [facility] Name Value Range Interpretation Code Description Data Sera rce(s) Supporting Document(s) SODIUM 140 mmol/L (136-145) [facility] POTASSIUM 4.1 mmol/L (3.6-5.2) [facility] CHLORIDE 104 mmol/L (100-108) [facility] CO2 33 mmol/L (22-31) H [facility] ANION GAP 3 mmol/L (7-16) L [facility] UREA NITROGEN 11 mg/dL (7-24) [facility] CREATININE 1.02 mg/dL (0.80-1.30) [facility] BUN/CREAT RATIO 10.8 RATIO (10.0-20.0) [facility] GLUCOSE 85 mg/dL (70-99) [facility] CALCIUM 9.5 mg/dL (8.4-10.2) [facility] GFR >60 ml/min/1.73m2 (>59) [facility] GFR ( AMER) >60 ml/min/1.73m2 (>59) [facility] GFR INTERPRETATION [facility] --NORMAL KIDNEY FUNCTION OR MILD DISEASE - GFR >OR= 60CHRONIC KIDNEY DISEASE - GFR 15 - 59RENAL FAILURE - GFR <15 Est. GFR calculation based on the MDRDstudy equation, which assumes a steadystate for creatinine. Est. GFR should notbe used for medication dosing. ID Date Data Source [id number] 03/13/2020 03:36:51 PM EDT [facility] Name Value Range Interpretation Code Description Data Sera rce(s) Supporting Document(s) WBC 4.0 10*3/uL (4.1-11.0) L [facility] RBC 5.10 10*6/uL (4.60-6.10) [facility] HGB 15.9 g/dL (13.5-18.0) [facility] HCT 47.3 % (41.0-53.0) [facility] MCV 92.6 fL (80.0-95.0) [facility] MCH 31.1 pg (27.0-32.0) [facility] MCHC 33.6 g/dL (32.0-36.0) [facility] RDW 13.8 % (10.5-14.5) [facility] PLT 130 10*3/uL (150-450) L [facility] MPV 10.4 fL (7.1-10.7) [facility] ID Date Data Source [id number] 03/09/2020 02:03:44 PM [facility] Name Date of Age Gend*PT [id number] Gallito Hinojosa 1995 25 years M ---PT Location Admission Date/Time Visit ID Attending Provider --- --- --- --- EPI ID CSN Admitting Pro vider [id number] ---Addended by: SUBHA BLAND on: 03/09/2020 02:03 PM Modules accepted: Orders Name Value Range Interpretation Code Description Data Sera rce(s) Supporting Document(s) Procedure Social History Code Duration Value Status Description Data Source(s ) Alcohol intake 03/02/2021 12:00:00 AM EDT Ex-drinker (finding) comp leted Ex- drinker (finding) [facility] Alcohol intake 11/19/2020 12:00:00 AM EDT Ex-drinker (finding) comp leted Ex- drinker (finding) [facility] Alcohol intake 11/16/2020 12:00:00 AM EDT Ex-drinker (finding) comp leted Ex- drinker (finding) [facility] Alcohol intake 09/22/2020 12:00:00 AM EDT Not Currently completed [facility] Cigarette pack-years 09/22/2020 12:00:00 AM EDT UNK completed [facility] Cigarettes smoked current (pack per day) - Reported 09/23/19 12:00:00 AM EDT UNK completed [facility] Smoking 09/22/2020 12:00:00 AM EDT Current every day smoker co mpleted Current every day smoker [facility] Alcohol intake 06/24/2020 12:00:00 AM EST Not Currently completed [facility] Cigarette pack-years 06/24/2020 12:00:00 AM EST UNK completed [facility] Cigarettes smoked current (pack per day) - Reported 06/24/19 12:00:00 AM EST UNK completed [facility] Smoking 06/24/2020 12:00:00 AM EST Current every day smoker co mpleted Current every day smoker [facility] Vital Signs ID Date Data Source UNK Name Value Range Interpretation Code Description Data Source(s) Body height 68 [in_i] 68 [in_i] [facility] ([facility] 5'8" Body mass index (BMI) [Ratio] 27.2 kg/m2 27.2 k g/m2 [facility] ([facility]) Body weight 179.00 [lb_av] 179.00 [lb_av] MEDEN T ([facility]) in full uniform 8 lbs Heart rate 111 /min 111 /min [facility] ([facility]) 108, regular Systolic blood pressure--sitting 136 mm[Hg] 136 mm[Hg] [facility] ([facility]) Ra, large cuff Diastolic blood pressure--sitting 86 mm[Hg] 86 mm[Hg] [facility] ([facility]) Ra, large cuff [place] body weight 148 [lb_av] 148 [lb_av] MEDEN T ([facility], ) Systolic blood pressure 120 mm[Hg] 120 mm[Hg] M EDENT ([facility], ) Diastolic blood pressure 80 mm[Hg] 80 mm[Hg] [facility] ([facility], ) Heart rate 72 /min 72 /min [facility] ([facility], ) Body height 67 [in_i] 67 [in_i] [facility] ([facility] ) 5'7" Body weight 168.00 [lb_av] 168.00 [lb_av] MEDEN T ([facility], ) Body mass index (BMI) [Ratio] 26.3 kg/m2 26.3 k g/m2 [facility] ([facility], ) Body temperature 97.7 [degF] 97.7 [degF] [facility] ([facility] ) Body height 66 [in_i] 66 [in_i] [facility] ([facility] ) 5'6" Body weight 169.50 [lb_av] 169.50 [lb_av] MEDEN T ([facility] ) Body mass index (BMI) [Ratio] 27.4 kg/m2 27.4 k g/m2 [facility] ([facility] ) Systolic blood pressure 118 mm[Hg] 118 mm[Hg] [facility] Diastolic blood pressure 66 mm[Hg] 66 mm[Hg] [facility] Heart rate 101 /min 101 /min [facility] Oxygen saturation in Arterial blood by Pulse oximetry 99 % 99 % [facility] Body temperature 36.5 Delphine 36.5 Delphine [facility] Respiratory rate 18 /min 18 /min [facility] Body weight 76.794 kg 76.794 kg [facility] Body mass index (BMI) [Ratio] 26.52 kg/m2 26.52 kg/m2 [facility] Heart rate 85 /min 85 /min [facility] Systolic blood pressure 121 mm[Hg] 121 mm[Hg] [facility] Diastolic blood pressure 78 mm[Hg] 78 mm[Hg] [facility] Body temperature 36.28 Delphine 36.28 Delphine [facility] Respiratory rate 16 /min 16 /min [facility] Body height 170.2 cm 170.2 cm [facility] Body weight 76.658 kg 76.658 kg [facility] Body mass index (BMI) [Ratio] 26.47 kg/m2 26.47 kg/m2 [facility] Oxygen saturation in Arterial blood by Pulse oximetry 100 % 100 % [facility] Body weight 175.00 [lb_av] 175.00 [lb_av] MEDEN T ([facility]) in full uniform 8 lbs Body height 68 [in_i] 68 [in_i] MEDENT ([facility]) 5'8" Body mass index (BMI) [Ratio] 26.6 kg/m2 26.6 k g/m2 [facility] ([facility]) Systolic blood pressure--sitting 124 mm[Hg] 124 mm[Hg] [facility] ([facility]) Ra, large cuff Diastolic blood pressure--sitting 72 mm[Hg] 72 mm[Hg] [facility] ([facility]) Ra, large cuff Body weight 173.00 [lb_av] 173.00 [lb_av] MEDEN T ([facility]) in full uniform 6 lbs Diastolic blood pressure--sitting 72 mm[Hg] 72 mm[Hg] [facility] ([facility]) Ra, large cuff Body height 68 [in_i] 68 [in_i] [facility] ([facility]) 5'8" Body mass index (BMI) [Ratio] 26.3 kg/m2 26.3 k g/m2 [facility] ([facility]) Systolic blood pressure--sitting 122 mm[Hg] 122 mm[Hg] [facility] ([facility]) Ra, large cuff Body mass index (BMI) [Ratio] 26.1 kg/m2 26.1 k g/m2 [facility] ([facility]) Body weight 172.00 [lb_av] 172.00 [lb_av] MEDEN T ([facility]) in full uniform Body height 68 [in_i] 68 [in_i] [facility] 5'8" Systolic blood pressure--sitting 118 mm[Hg] 118 mm[Hg] [facility] ([facility]) Ra, large cuff Diastolic blood pressure--sitting 78 mm[Hg] 78 mm[Hg] [facility] ([facility]) Ra, large cuff Heart rate 72 /min 72 /min [facility] ([facility]) regular Respiratory rate 16 /min 16 /min [facility] ( [facility]) nonlabored Body weight 175.00 [lb_av] 175.00 [lb_av] MEDEN T ([facility]) Body height 68 [in_i] 68 [in_i] [facility] ([facility]) 5'8" Heart rate 71 /min 71 /min [facility] Systolic blood pressure--sitting 118 mm[Hg] 118 mm[Hg] [facility] ([facility]) large cuff, Ra Diastolic blood pressure--sitting 80 mm[Hg] 80 mm[Hg] [facility] ([facility]) large cuff, Ra Body mass index (BMI) [Ratio] 26.6 kg/m2 26.6 k g/m2 [facility] ([facility]) Patient Treatment Plan of Care Planned Activity Planned Date Details Description Data Source (s) Flecainide Acetate 50 MG Oral Tablet 03/03/2021 12:00:00 AM EDT [facility] rivaroxaban 20 MG Oral Tablet 12/23/2020 12:00:00 AM EDT [facility] normal saline flush 0.9 % injection 3 mL 11/19/2020 02:00:00 PM EDT [facility] normal saline flush 0.9 % injection 3 mL 11/19/2020 02:00:00 PM EDT [facility] normal saline flush 0.9 % injection 3 mL 11/19/2020 02:00:00 PM EDT [facility] fentaNYL Citrate (PF) (SUBLIMAZE) injection 25 mcg 11/19/2020 01 :20:51 PM EDT [facility] HYDROmorphone (DILAUDID) injection 0.5 mg 11/19/2020 01:20:51 PM ED T [facility] Albuterol 0.833 MG/ML / Ipratropium [place] 0.167 MG/M L Inhalant Solution 11/19/2020 01:20:51 PM EDT [facility] 10 ML Atropine Sulfate 0.1 MG/ML Prefilled Syringe 11/19/2020 01 :20:50 PM EDT [facility] rivaroxaban 20 MG Oral Tablet 03/24/2020 12:00:00 AM EDT [facility]
--- NOTE | 2021-05-05 17:09 | ECGEPIP ---
[facility] - ED Test Date: 2021-05-05 Pat Name: CRISTIANA HERNANDEZ Department: Room: - Gender: Male Television [employer] Man: [place] : 1995 Requested By: Jennie Boss PA-C Order Number: [id number] Reading MD: Liza Hood Measurements Intervals [place] Rate: 91 P: 63 [place]: 172 QRS: 63 QRSD: 82 T: -32 QT: 308 QTc: 378 Interpretive Statements Normal sinus rhythm T wave abnormality, consider inferior ischemia increased rate 04/22/21 Electronically Signed on 05-05-2021 17:09:34 EST by Liza Hood
[2021-05-05] MEDS ORDERED: ACETAMINOPHEN 325 MG TAB PO ONE (17:45)
[2021-05-05 18:44] VITALS: BP 117/57
== END 2021-05-05 18:58 | disposition home or self-care (01) ==
LOC: M ED 13:13
DX: J09.X2 Influenza due to identified novel influenza A virus with other respiratory manifestations (principal); R50.9 Fever, unspecified; E78.5 Hyperlipidemia, unspecified; R32 Unspecified urinary incontinence; R15.9 Full incontinence of feces; K58.9 Irritable bowel syndrome, unspecified; I48.91 Unspecified atrial fibrillation; M54.9 Dorsalgia, unspecified; Z95.818 Presence of other cardiac implants and grafts; F17.200 Nicotine dependence, unspecified, uncomplicated; Z79.01 Long term (current) use of anticoagulants; Z79.899 Other long term (current) drug therapy; Z91.010 Allergy to peanuts; Z91.018 Allergy to other foods

== ENCOUNTER 2021-07-21 14:39 | Emergency (ER) | payer OTHER ==
[~2021-07-21] VITALS: Ht 170.2 cm; Wt 84.5 kg
[2021-07-21] MEDS ORDERED: ESZO1TAB8 (14:43)
[2021-07-21] MEDS ORDERED: OMEP-173 (14:43)
[2021-07-21 17:05] LABS: HEMATOCRIT 46.2 % (42.0-52.0); HEMOGLOBIN 15.1 g/dl (13.5-17.5); MEAN CORPUSCULAR HEMOGLOBIN 29.5 pg (27.0-33.0); MEAN CORPUSCULAR HGB CONC 32.7 g/dl (32.0-36.5); MEAN CORPUSCULAR VOLUME 90.4 fl (80.0-96.0); PLATELET COUNT, AUTOMATED 142 10^3/uL (150-450); RED BLOOD COUNT 5.11 10^6/uL (4.30-6.10); WHITE BLOOD COUNT 4.8 10^3/uL (4.0-10.0)
[2021-07-21 17:50] LABS: RSV AMPLIFICATION NEGATIVE (NEGATIVE)
[2021-07-21 17:56] LABS: ACETAMINOPHEN LEVEL < 2.0 UG/ML (10.0-30.0); ALBUMIN 4.1 GM/DL (3.2-5.2); ALT/SGPT 38 U/L (12-78); BILIRUBIN,DIRECT 0.2 MG/DL (0.0-0.2); BILIRUBIN,TOTAL 0.5 MG/DL (0.2-1.0); BLOOD UREA NITROGEN 5 MG/DL (7-18); CALCIUM LEVEL 9.1 MG/DL (8.5-10.1); CARBON DIOXIDE LEVEL 30 MEQ/L (21-32); CHLORIDE LEVEL 105 MEQ/L (98-107); ETHYL ALCOHOL (ETHANOL) < 0.003 % (0.000-0.010); GLOMERULAR FILTRATION RATE > 60.0 (>60); GLUCOSE, FASTING 64 MG/DL (70-100); POTASSIUM SERUM 3.8 MEQ/L (3.5-5.1); SALICYLATE LEVEL < 1.7 MG/DL (5.0-30.0); SODIUM LEVEL 140 MEQ/L (136-145); TOTAL PROTEIN 7.4 GM/DL (6.4-8.2)
[2021-07-21 18:51] LABS: AMPHETAMINES LEVEL URINE NEGATIVE (NEGATIVE); BARBITURATES URINE NEGATIVE (NEGATIVE); BENZODIAZEPINES URINE NEGATIVE (NEGATIVE); CANNABINOIDS URINE NEGATIVE (NEGATIVE); COCAINE METABOLITE URINE NEGATIVE (NEGATIVE); METHADONE URINE NEGATIVE (NEGATIVE); OPIATES URINE NEGATIVE (NEGATIVE); PHENCYCLIDINE URINE NEGATIVE (NEGATIVE)
[2021-07-21] MEDS ORDERED: DULoxetine 30MG CAPSULE (CYMBALTA) PO ONE (21:30)
[2021-07-21] MEDS ORDERED: GABAPENTIN 400MG CAP PO ONE (21:30)
[2021-07-22] MEDS ORDERED: FLEC50HA PO (00:38)
[2021-07-22] MEDS ORDERED: METO200T28 PO (00:38)
[2021-07-22] MEDS ORDERED: ERGO500029 PO (00:38)
[2021-07-22] MEDS ORDERED: LUNE2TAB23 PO (00:38)
[2021-07-22] MEDS ORDERED: OMEP1CAP73 PO (00:38)
[2021-07-22] MEDS ORDERED: GABA-282 PO ×2 (00:38)
[2021-07-22] MEDS ORDERED: CYMB1CAP5 PO (00:38)
[2021-07-22] MEDS ORDERED: MUCI600T31 PO (00:38)
[2021-07-22] MEDS ORDERED: XARE20TA PO (00:38)
[2021-07-22] MEDS ORDERED: HOME MED LIST COMPLETE! XX SCH (00:40)
[2021-07-22] MEDS ORDERED: METOPROLOL SUCC (TopROL XL) 100MG *XL* TAB PO SCH (09:00)
[2021-07-22] MEDS ORDERED: GABAPENTIN 300 MG CAP PO ONE ×2 (09:00→12:45)
[2021-07-22] MEDS ORDERED: guaiFENesin ER 600 MG TAB PO SCH (09:00)
[2021-07-22] MEDS ORDERED: DULoxetine 30MG CAPSULE (CYMBALTA) PO ONE (09:00)
[2021-07-22] MEDS ORDERED: FLECAINIDE 50MG TABLET PO SCH (09:00)
[2021-07-22] MEDS ORDERED: OMEPRAZOLE 20MG CAP PO ONE (09:00)
[2021-07-22 15:15] VITALS: BP 138/82
== END 2021-07-22 15:20 ==
LOC: M ED 14:39
DX: R45.851 Suicidal ideations (principal); F33.9 Major depressive disorder, recurrent, unspecified; I48.91 Unspecified atrial fibrillation; M51.36 Other intervertebral disc degeneration, lumbar region; Z91.018 Allergy to other foods; Z79.899 Other long term (current) drug therapy

== ENCOUNTER 2021-09-14 22:44 | Emergency (ER) | payer OTHER ==
[~2021-09-14] VITALS: Ht 170.2 cm; Wt 87.3 kg
[~2021-09-14 22:44] MED LIST changes: +CYMB1CAP5 PO; +ERGO500029 PO; +ESZO1TAB8; +LUNE2TAB23 PO; +METO200T28 PO; +MUCI600T31 PO; +OMEP-173; +OMEP1CAP73 PO
[2021-09-15] MEDS ORDERED: LIDOCAINE 1% MDV 20ML VIAL SC ONE (00:40)
[2021-09-15 02:20] VITALS: BP 118/61
== END 2021-09-15 02:21 | disposition home or self-care (01) ==
LOC: M ED 22:44
DX: S61.411A Laceration without foreign body of right hand, initial encounter (principal); W26.8XXA Contact with other sharp object(s), not elsewhere classified, initial encounter; Y92.018 Other place in single-family (private) house as the place of occurrence of the external cause; I10 Essential (primary) hypertension; I48.91 Unspecified atrial fibrillation; Z91.018 Allergy to other foods; Z79.899 Other long term (current) drug therapy; Z79.01 Long term (current) use of anticoagulants; F17.210 Nicotine dependence, cigarettes, uncomplicated

== ENCOUNTER → 2022-02-08 | Outpatient (REF) | LOC: M LAB 12:32 | PROVIDERS: ATTEND Nurse Practitioner Adult Health | DX: Z02.89 Encounter for other administrative examinations (principal) ==

== ENCOUNTER 2022-03-01 13:35 | Emergency (ER) | payer MEDICAID, OTHER ==
[~2022-03-01] VITALS: Ht 172.7 cm; Wt 81.5 kg
[2022-03-01 16:25] VITALS: BP 135/89
== END 2022-03-01 16:36 | disposition home or self-care (01) ==
LOC: M ED 13:35
DX: Z77.21 Contact with and (suspected) exposure to potentially hazardous body fluids (principal); I48.91 Unspecified atrial fibrillation; Z79.01 Long term (current) use of anticoagulants; Z91.018 Allergy to other foods; F17.200 Nicotine dependence, unspecified, uncomplicated

== ENCOUNTER 2022-04-20 14:50 | Emergency (ER) | payer MEDICAID, OTHER ==
[~2022-04-20] VITALS: Ht 172.7 cm; Wt 80.2 kg
[2022-04-20] MEDS ORDERED: BUPR150T12 (14:57)
[2022-04-20] MEDS ORDERED: TRAZ-257 (14:57)
[2022-04-20] MEDS ORDERED: LORA-674 (14:57)
[2022-04-20] MEDS ORDERED: EPIN0.3I11 (14:57)
[2022-04-20] MEDS ORDERED: OXYB10TA23 (14:57)
[2022-04-20 18:45] VITALS: BP 148/99
== END 2022-04-20 18:55 | disposition home or self-care (01) ==
LOC: M ED 14:50
DX: S83.004A Unspecified dislocation of right patella, initial encounter (principal); X50.1XXA Overexertion from prolonged static or awkward postures, initial encounter; F32.A Depression, unspecified; Z98.890 Other specified postprocedural states; F17.210 Nicotine dependence, cigarettes, uncomplicated; Z91.018 Allergy to other foods; Z79.899 Other long term (current) drug therapy; Z79.01 Long term (current) use of anticoagulants

== ENCOUNTER 2022-05-03 12:34 | Emergency (ER) | payer OTHER ==
[2022-05-03 12:35] VITALS: BP 122/66
== END 2022-05-03 13:22 | disposition left against medical advice (07) ==
LOC: M ED 12:34
DX: Z53.21 Procedure and treatment not carried out due to patient leaving prior to being seen by health care provider (principal)

== ENCOUNTER → 2022-05-03 | Outpatient (CLI) | payer OTHER ==
[~2022-05-03] MED LIST changes: +BUPR150T12; +EPIN0.3I11; +LORA-674; +OXYB10TA23; +TRAZ-257
[2022-05-03 14:49] LABS: HEMATOCRIT 45.9 % (42.0-52.0); MEAN CORPUSCULAR HEMOGLOBIN 30.5 pg (27.0-33.0); MEAN CORPUSCULAR HGB CONC 32.7 g/dl (32.0-36.5); MEAN CORPUSCULAR VOLUME 93.5 fl (80.0-96.0); PLATELET COUNT, AUTOMATED 186 10^3/uL (150-450); RED BLOOD COUNT 4.91 10^6/uL (4.30-6.10); WHITE BLOOD COUNT 5.3 10^3/uL (4.0-10.0)
[2022-05-03 16:27] LABS: BLOOD UREA NITROGEN 8 MG/DL (9-23); CALCIUM LEVEL 8.8 MG/DL (8.5-10.1); CARBON DIOXIDE LEVEL 30 MMOL/L (20-31); CHLORIDE LEVEL 102 MMOL/L (98-107); CREATININE FOR GFR 1.09 MG/DL (0.70-1.30); FREE T4 1.03 NG/DL (0.89-1.76); GLOMERULAR FILTRATION RATE > 60.0 (>60); GLUCOSE, FASTING 76 MG/DL (60-100); MAGNESIUM LEVEL 1.8 MG/DL (1.8-2.4); POTASSIUM SERUM 4.3 MMOL/L (3.5-5.1); SODIUM LEVEL 139 MMOL/L (136-145); THYROID STIMULATING HORMONE 1.015 uIU/ML (0.55-4.78)
== END ==
LOC: M RAD 13:36
PROVIDERS: ATTEND Physician Assistant
DX: R06.02 Shortness of breath (principal); I48.0 Paroxysmal atrial fibrillation; Z95.818 Presence of other cardiac implants and grafts

== ENCOUNTER → 2022-05-19 | Outpatient (CLI) | payer OTHER | LOC: M PLARAD 11:33 | PROVIDERS: ATTEND Orthopaedic Surgery Adult Reconstructive Orthopaedic Surgery | DX: S83.001A Unspecified subluxation of right patella, initial encounter (principal) ==

== ENCOUNTER 2022-06-23 14:30 | Outpatient (RCR) | payer OTHER | END 2022-07-12 | LOC: M PT 14:30 | PROVIDERS: ATTEND Orthopaedic Surgery Adult Reconstructive Orthopaedic Surgery | DX: S83.001D Unspecified subluxation of right patella, subsequent encounter (principal) ==

== ENCOUNTER 2022-07-21 11:20 | Outpatient (RCR) | payer OTHER ==
[~2022-07-21 11:20] MED LIST changes: -BUPR150T12; +BUPR150T12 PO; -EPIN0.3I11; +EPIN0.3I11 INJ; -LORA-674; +LORA-674 PO; -OXYB10TA23; +OXYB10TA23 PO; -TRAZ-257; +TRAZ-257 PO
[2022-07-27] MEDS ORDERED: MIRT1TAB15 PO (14:35)
[2022-07-27] MEDS ORDERED: VENL75TA2 PO (14:35)
[2022-07-27] MEDS ORDERED: BUSP15TA47 PO (14:35)
[2022-07-28] MEDS ORDERED: ONDA4TAB6 PO (19:58)
== END 2022-08-09 ==
LOC: M PT 11:20
PROVIDERS: ATTEND Orthopaedic Surgery Adult Reconstructive Orthopaedic Surgery
DX: S83.001D Unspecified subluxation of right patella, subsequent encounter (principal)

== ENCOUNTER 2022-07-28 17:05 | Emergency (ER) | payer OTHER ==
[~2022-07-28] VITALS: Ht 172.7 cm; Wt 87.3 kg
[~2022-07-28 17:05] MED LIST changes: +BUSP15TA47 PO; +MIRT1TAB15 PO; +VENL75TA2 PO
[2022-07-28 17:06] VITALS: BP 132/81
[2022-07-28 18:03] LABS: BASO % 0.6 % (0.0-1.0); EOS # 0.1 10^3/uL (0.0-0.5); EOS % 1.1 % (0.0-3.0); HEMATOCRIT 47.9 % (42.0-52.0); LYMPH # 3.2 10^3/uL (1.5-5.0); LYMPH % 48.9 % (24.0-44.0); MEAN CORPUSCULAR HEMOGLOBIN 30.5 pg (27.0-33.0); MEAN CORPUSCULAR HGB CONC 33.4 g/dl (32.0-36.5); MEAN CORPUSCULAR VOLUME 91.2 fl (80.0-96.0); MONO # 0.6 10^3/uL (0.0-0.8); MONO % 9.4 % (2.0-8.0); NEUTROPHILS # 2.6 10^3/uL (1.5-8.5); NEUTROPHILS % 39.8 % (36.0-66.0); PLATELET COUNT, AUTOMATED 165 10^3/uL (150-450); RED BLOOD COUNT 5.25 10^6/uL (4.30-6.10); WHITE BLOOD COUNT 6.6 10^3/uL (4.0-10.0)
[2022-07-28] MEDS ORDERED: NS 1,000 ML IV ONE (18:05)
[2022-07-28 18:33] LABS: INR 1.91; PROTHROMBIN TIME 22.2 SECONDS (12.5-14.5)
[2022-07-28 18:34] LABS: LIPASE 41 U/L (12-53)
[2022-07-28 18:35] LABS: AMYLASE 64 U/L (30-118)
[2022-07-28 18:36] LABS: ALBUMIN 4.3 G/DL (3.2-5.2); ALKALINE PHOSPHATASE 85 U/L (46-116); ALT/SGPT 63 U/L (7.0-40); AST/SGOT 28 U/L (<34); BILIRUBIN,DIRECT 0.2 MG/DL (<0.4); BILIRUBIN,TOTAL 0.5 MG/DL (0.3-1.2); BLOOD UREA NITROGEN 20 MG/DL (9-23); CALCIUM LEVEL 9.6 MG/DL (8.5-10.1); CARBON DIOXIDE LEVEL 28 MMOL/L (20-31); CHLORIDE LEVEL 104 MMOL/L (98-107); CREATININE FOR GFR 0.93 MG/DL (0.70-1.30); GLOMERULAR FILTRATION RATE > 60.0 (>60); GLUCOSE, FASTING 79 MG/DL (60-100); POTASSIUM SERUM 4.4 MMOL/L (3.5-5.1); SODIUM LEVEL 139 MMOL/L (136-145); TOTAL PROTEIN 7.7 G/DL (5.7-8.2)
[2022-07-28] MEDS ORDERED: PHYTONADIONE 5 MG TAB PO ONE (19:50)
[2022-07-28] MEDS ORDERED: ONDA4TAB6 PO (19:58)
== END 2022-07-28 20:09 | disposition home or self-care (01) ==
LOC: M ED 17:05
DX: A08.4 Viral intestinal infection, unspecified (principal); E04.2 Nontoxic multinodular goiter; I48.91 Unspecified atrial fibrillation; I10 Essential (primary) hypertension; K21.9 Gastro-esophageal reflux disease without esophagitis; F32.9 Major depressive disorder, single episode, unspecified; G47.33 Obstructive sleep apnea (adult) (pediatric); N32.81 Overactive bladder; F17.200 Nicotine dependence, unspecified, uncomplicated; Z79.01 Long term (current) use of anticoagulants; Z79.899 Other long term (current) drug therapy; Z91.018 Allergy to other foods

== ENCOUNTER → 2022-07-29 | Outpatient (REF) | payer OTHER | LOC: M LAB REF 08:26 | PROVIDERS: ATTEND Internal Medicine | DX: R19.7 Diarrhea, unspecified (principal) ==

== ENCOUNTER → 2022-07-29 | Outpatient (CLI) | payer OTHER | LOC: M LABSMTC 10:13 | PROVIDERS: ATTEND Anesthesiology | DX: Z01.812 Encounter for preprocedural laboratory examination (principal); Z20.822 Contact with and (suspected) exposure to COVID-19 ==

== ENCOUNTER → 2022-08-01 | Outpatient (CLI) | payer OTHER ==
[~2022-08-01] MED LIST changes: +ISOVUE-370 76% 100ML VIAL As Ordered ONE
== END ==
LOC: M RAD 16:53
PROVIDERS: ATTEND Surgery
DX: K55.059 Acute (reversible) ischemia of intestine, part and extent unspecified (principal)
CPT/HCPCS: 74174; Q9967

== ENCOUNTER 2022-08-03 10:54 | Day surgery (SDC) | payer OTHER ==
[~2022-08-03] VITALS: Ht 172.7 cm; Wt 86.6 kg
[~2022-08-03 10:54] MED LIST changes: -ISOVUE-370 76% 100ML VIAL As Ordered ONE; +NS 1,000 ML IV ONE
[2022-08-03] MEDS ORDERED: propofoL 200 MG/20 ML VIAL As Ordered ONE (12:11)
[2022-08-03] MEDS ORDERED: LIDOCAINE 2% 100MG/5ML SDV (FOR ANES.) As Ordered ONE (12:11)
[2022-08-03 12:47] VITALS: BP 110/56
== END 2022-08-03 12:52 | disposition home or self-care (01) ==
LOC: M OPP 10:54
PROVIDERS: ATTEND Surgery
DX: K64.0 First degree hemorrhoids (principal); K92.1 Melena; K29.70 Gastritis, unspecified, without bleeding; I48.91 Unspecified atrial fibrillation; G43.909 Migraine, unspecified, not intractable, without status migrainosus; F17.210 Nicotine dependence, cigarettes, uncomplicated; F31.9 Bipolar disorder, unspecified; Z79.01 Long term (current) use of anticoagulants; Z79.83 Long term (current) use of bisphosphonates; Z79.891 Long term (current) use of opiate analgesic; Z79.899 Other long term (current) drug therapy; Z95.818 Presence of other cardiac implants and grafts; Z86.79 Personal history of other diseases of the circulatory system

== ENCOUNTER 2022-11-11 00:25 | Emergency (ER) | payer OTHER ==
[~2022-11-11] VITALS: Ht 170.2 cm; Wt 79.3 kg
[~2022-11-11 00:25] MED LIST changes: -NS 1,000 ML IV ONE
[2022-11-11 01:21] LABS: BASO # 0.1 10^3/uL (0.0-0.2); BASO % 1.2 % (0.0-1.0); EOS # 0.1 10^3/uL (0.0-0.5); EOS % 1.9 % (0.0-3.0); HEMOGLOBIN 15.5 g/dl (13.5-17.5); LYMPH # 2.9 10^3/uL (1.5-5.0); LYMPH % 60.6 % (24.0-44.0); MEAN CORPUSCULAR VOLUME 90.9 fl (80.0-96.0); MONO # 0.5 10^3/uL (0.0-0.8); MONO % 9.3 % (2.0-8.0); NEUTROPHILS # 1.3 10^3/uL (1.5-8.5); NEUTROPHILS % 26.8 % (36.0-66.0); PLATELET COUNT, AUTOMATED 150 10^3/uL (150-450); RED BLOOD COUNT 5.17 10^6/uL (4.30-6.10); WHITE BLOOD COUNT 4.8 10^3/uL (4.0-10.0)
[2022-11-11 01:53] LABS: LIPASE 38 U/L (12-53)
[2022-11-11 02:22] LABS: ALBUMIN 4.3 G/DL (3.2-5.2); ALKALINE PHOSPHATASE 77 U/L (46-116); ALT/SGPT 32 U/L (7.0-40); AST/SGOT 21 U/L (<34); BILIRUBIN,DIRECT 0.1 MG/DL (<0.4); BILIRUBIN,TOTAL 0.5 MG/DL (0.3-1.2); BLOOD UREA NITROGEN 14 MG/DL (9-23); CALCIUM LEVEL 9.1 MG/DL (8.5-10.1); CARBON DIOXIDE LEVEL 28 MMOL/L (20-31); CHLORIDE LEVEL 103 MMOL/L (98-107); CK-MB VALUE MASS 2.3 NG/ML (<3.6); CREATININE FOR GFR 0.97 MG/DL (0.70-1.30); GLOMERULAR FILTRATION RATE > 60.0 (>60); GLUCOSE, FASTING 82 MG/DL (60-100); POTASSIUM SERUM 4.3 MMOL/L (3.5-5.1); SODIUM LEVEL 138 MMOL/L (136-145); TOTAL PROTEIN 7.2 G/DL (5.7-8.2)
[2022-11-11 02:24] LABS: CPK CREATINE PHOSPHOKINASE 446 U/L (46-171); MB/CK RELATIVE INDEX 0.51 (< OR =4)
[2022-11-11 02:48] LABS: CK-MB VALUE MASS 2.1 NG/ML (<3.6)
[2022-11-11 02:51] LABS: CPK CREATINE PHOSPHOKINASE 435 U/L (46-171); MB/CK RELATIVE INDEX 0.48 (< OR =4)
[2022-11-11] MEDS ORDERED: ISOVUE-370 76% 100ML VIAL As Ordered ONE (04:52)
[2022-11-11 06:23] VITALS: BP 140/68
== END 2022-11-11 06:29 | disposition home or self-care (01) ==
LOC: M ED 00:25
DX: R07.89 Other chest pain (principal); I10 Essential (primary) hypertension; K21.9 Gastro-esophageal reflux disease without esophagitis; I48.91 Unspecified atrial fibrillation; Z79.01 Long term (current) use of anticoagulants; Z91.018 Allergy to other foods; Z79.899 Other long term (current) drug therapy
CPT/HCPCS: 36415; 71045; 71275; 80048; 80076; 82550; 82553; 83690; 84484; 85025; 85730; 93005; 94760; 99285; Q9967

== ENCOUNTER 2022-12-06 01:36 | Emergency (ER) | payer OTHER ==
[~2022-12-06] VITALS: Ht 172.7 cm; Wt 80.3 kg
[2022-12-06 01:38] VITALS: BP 133/95; TEMP 97.6; O2SAT 100
[2022-12-06] MEDS ORDERED: METH-1164 (01:46)
[2022-12-06] MEDS ORDERED: HYDR-4571 (01:46)
== END 2022-12-06 02:56 | disposition left against medical advice (07) ==
LOC: M ED 01:36
DX: G43.909 Migraine, unspecified, not intractable, without status migrainosus (principal); Z53.21 Procedure and treatment not carried out due to patient leaving prior to being seen by health care provider

== ENCOUNTER 2023-01-18 07:37 | Emergency (ER) | payer OTHER ==
[~2023-01-18] VITALS: Ht 172.7 cm; Wt 75.5 kg
[~2023-01-18 07:37] MED LIST changes: +HYDR-4571; +METH-1164
[2023-01-18 07:38] VITALS: BP 159/86; TEMP 98.3; O2SAT 100
[2023-01-18] MEDS ORDERED: CYCLOBENZAPRINE 5MG TABLET PO ONE (08:40)
[2023-01-18] MEDS ORDERED: LIDOCAINE 5% (LIDODERM) PATCH TD ONE (08:40)
[2023-01-18] MEDS ORDERED: KETOROLAC 60MG 2ML VIAL IM ONE (08:45)
== END 2023-01-18 10:22 | disposition home or self-care (01) ==
LOC: M ED 07:37
DX: M54.10 Radiculopathy, site unspecified (principal); M54.50 Low back pain, unspecified; I48.91 Unspecified atrial fibrillation; I10 Essential (primary) hypertension; K27.9 Peptic ulcer, site unspecified, unspecified as acute or chronic, without hemorrhage or perforation; Z87.891 Personal history of nicotine dependence; Z91.010 Allergy to peanuts; Z91.018 Allergy to other foods
CPT/HCPCS: 72110; 96372; 99283; J1885

== ENCOUNTER 2023-04-12 23:53 | Emergency (ER) | payer OTHER ==
[~2023-04-12] VITALS: Ht 172.7 cm; Wt 77.8 kg
[~2023-04-12 23:53] MED LIST changes: +LORA-1041 PO; -LORA-674 PO; -LUNE2TAB23 PO; +LUNE2TAB28 PO
[2023-04-13 03:47] VITALS: TEMP 98.8
[2023-04-13] MEDS ORDERED: BOOSTRIX VACCINE (TETANUS/DIPHTH/ACEL. PERTUSSIS) 0.5ML SYR IM ONE (06:00)
[2023-04-13 06:14] VITALS: BP 150/76; O2SAT 97
== END 2023-04-13 06:27 | disposition home or self-care (01) ==
LOC: M ED 23:53
DX: S69.91XA Unspecified injury of right wrist, hand and finger(s), initial encounter (principal); Y93.E5 Activity, floor mopping and cleaning; Y99.0 Civilian activity done for income or pay

== ENCOUNTER 2023-04-16 02:17 | Emergency (ER) | payer OTHER ==
[2023-04-16] MEDS ORDERED: ONDANSETRON 4MG 2ML VIAL IV ONE (03:55)
[2023-04-16] MEDS ORDERED: NS 1,000 ML IV ONE (03:55)
[2023-04-16 04:05] LABS: BASO # 0.1 10^3/uL (0.0-0.2); BASO % 0.9 % (0.0-1.0); EOS # 0.1 10^3/uL (0.0-0.5); EOS % 2.3 % (0.0-3.0); HEMATOCRIT 44.5 % (42.0-52.0); HEMOGLOBIN 15.2 g/dl (13.5-17.5); LYMPH % 53.7 % (24.0-44.0); MEAN CORPUSCULAR HEMOGLOBIN 31.1 pg (27.0-33.0); MEAN CORPUSCULAR HGB CONC 34.2 g/dl (32.0-36.5); MEAN CORPUSCULAR VOLUME 91.2 fl (80.0-96.0); MONO # 0.5 10^3/uL (0.0-0.8); MONO % 9.4 % (2.0-8.0); NEUTROPHILS # 1.9 10^3/uL (1.5-8.5); NEUTROPHILS % 33.5 % (36.0-66.0); PLATELET COUNT, AUTOMATED 153 10^3/uL (150-450); RED BLOOD COUNT 4.88 10^6/uL (4.30-6.10); WHITE BLOOD COUNT 5.7 10^3/uL (4.0-10.0)
[2023-04-16 04:34] LABS: LIPASE 37 U/L (12-53)
[2023-04-16 04:36] LABS: ALBUMIN 3.9 G/DL (3.2-5.2); ALKALINE PHOSPHATASE 67 U/L (46-116); ALT/SGPT 26 U/L (7.0-40); AST/SGOT 22 U/L (<34); BILIRUBIN,TOTAL 0.4 MG/DL (0.3-1.2); BLOOD UREA NITROGEN 13 MG/DL (9-23); CALCIUM LEVEL 9.1 MG/DL (8.5-10.1); CARBON DIOXIDE LEVEL 30 MMOL/L (20-31); CHLORIDE LEVEL 105 MMOL/L (98-107); CREATININE FOR GFR 0.94 MG/DL (0.70-1.30); GLOMERULAR FILTRATION RATE > 60.0 (>60); GLUCOSE, FASTING 81 MG/DL (60-100); POTASSIUM SERUM 3.9 MMOL/L (3.5-5.1); SODIUM LEVEL 140 MMOL/L (136-145); TOTAL PROTEIN 7.1 G/DL (5.7-8.2)
[2023-04-16] MEDS ORDERED: ONDA4TAB6 PO (05:42)
[2023-04-16] MEDS ORDERED: DICY1CAP8 PO (05:42)
[2023-04-16] MEDS ORDERED: FAMOTIDINE 20MG/2ML VIAL IVP ONE (05:55)
[2023-04-16 06:50] VITALS: BP 120/74; TEMP 98.3; O2SAT 98
[2023-04-16 06:56] LABS: RSV AMPLIFICATION NEGATIVE (NEGATIVE)
== END 2023-04-16 06:52 | disposition home or self-care (01) ==
LOC: M ED 02:17
DX: K52.9 Noninfective gastroenteritis and colitis, unspecified (principal); F32.A Depression, unspecified; Z91.018 Allergy to other foods
CPT/HCPCS: 80053; 83690; 85025; 87631; 96361; 96374; 96375; 99284; J2405